=== PATIENT | male | born 1970 | race Caucasian/White ===

== ENCOUNTER 2017-01-23 04:20 | Observation (INO) | payer MEDICARE ==
[2017-01-23] MEDS ORDERED: NS 0.9% 1000 ML* 1,000 ML IV ONE (04:50)
[2017-01-23] MEDS ORDERED: Ondansetron INJ* 2 MG/ML VIAL IV ONE ×3 (04:50→10:19)
[2017-01-23] MEDS ORDERED: Morphine INJ* 4 MG/ML 1 ML SYRINGE IV ONE ×2 (04:50→10:20)
[2017-01-23 05:01] LABS: Hematocrit 52 % (42-52); Hemoglobin 17.5 g/dl (14.0-18.0); Mean Corpuscular HGB Conc 34 g/dl (31-36); Mean Corpuscular Hemoglobin 29 pg (27-31); Mean Corpuscular Volume 86 fL (80-94); Mean Platelet Volume 9 um3 (7.4-10.4); Red Blood Count 6.08 10^6/ul (4.0-5.4); Red Cell Distribution Width 13 % (10.5-15); White Blood Count 22.8 10^3/ul (3.5-10.8)
[2017-01-23 05:12] LABS: Albumin 4.6 g/dL (3.2-5.2); BUN/Creatinine Ratio 18.9 (8-20); Calcium 10.1 mg/dL (8.6-10.3); EGFR African American 91.3 (>60); Globulin 3.4 g/dL (2-4); Total Bilirubin 0.8 mg/dL (0.2-1.0)
[2017-01-23 05:14] LABS: Troponin I 0.01 ng/mL (<0.04)
[2017-01-23] MEDS ORDERED: Piperac/Tazob 3.375 gm in NS* 3.375 GM/100 ML BAG IVPB ONE (05:21)
[2017-01-23] MEDS ORDERED: Insulin REGULAR(*) 1 UNITS UNIT IV PUSH ONE (05:23)
[2017-01-23] MEDS ORDERED: Vancomycin(*) 1,000 MG in NS 0.9% 250 ML* 250 ML IVPB ONE (05:30)
--- NOTE | 2017-01-23 07:01 | ED ---
Remberto Flanagan Aidan, scribed for Jean Holliday on 01/23/17 at 0513 . Complex/Multi-Sys Presentation - HPI Summary HPI Summary: 46 y/o male presents to the ED with a complaint of acute, constant, moderate diffuse abdominal pain and frequent vomiting since 1500 yesterday. He also mentions some CP and diarrhea. Pt denies any blood or fever. Hx of triple bypass , diabetes, HTN, and gall stones. He wears a fentanyl patch on the right side of his chest for chronic back pain. - History Of Current Complaint Chief Complaint: EDChestWallPain Time Seen by Provider: 01/23/17 04:45 Hx Obtained From: Patient, Family/Advertising Sales Agent - Onset/Duration: Sudden Onset, Lasting Hours, Still Present Timing: Constant Severity Currently: Moderate Severity Initially: Moderate Location: Pain At: - abdomen, CP Aggravating Factor(s): unknown Alleviating Factor(s): unknown Associated Signs And Symptoms: Positive: Vomiting, Diarrhea, Abdominal Pain, Other - CP. Negative: Fever - Allergies/Home Medications Allergies/Adverse Reactions: Allergies Allergy/AdvReac Type Severity Reaction Status Date / Time Erythromycin AdvReac Intermediate Nausea And Verified 12/23/16 08:36 Vomiting PMH/Surg Hx/FS Hx/Imm Hx Endocrine/Hematology History: Reports: Hx Diabetes Denies: Hx Thyroid Disease Cardiovascular History: Reports: Hx Angina, Hx Coronary Artery Disease, Hx Hypercholesterolemia, Hx Hypertension, Hx Myocardial Infarction, Other Cardiovascular Problems/Disorders - CARDIAC STENTS Denies: Hx Congestive Heart Failure, Hx Pacemaker/ICD, Hx Valvular Heart Disease Respiratory History: Denies: Hx Asthma, Hx Chronic Obstructive Pulmonary Disease (COPD) GI History: Reports: Other GI Disorders - chronic nausea since Jul Denies: Hx Ulcer History: Denies: Hx Dialysis, Hx Renal Disease Musculoskeletal History: Reports: Hx Arthritis, Hx Back Problems Sensory History: Denies: Hx Hearing Aid Neurological History: Reports: Hx Migraine - here and there (pt stated), Other Neuro Impairments/Disorders - young's palsy, PAIN CLINIC PATIENT Psychiatric History: Reports: Hx Depression, Hx Panic Disorder - does ok with mri foot, Hx Bipolar Disorder - Surgical History Surgery Procedure, Year, and Place: 2008 triple heart bypass; 2007 cardiac cath no stents; 2 stents [place] [facility] [place] Immunization History Date of Tetanus Vaccine: up to date per pt Date of Influenza Vaccine: utd Infectious Disease History: No Infectious Disease History: Reports: History Other Infectious Disease - spinal meningitis Denies: Hx Clostridium Difficile, Hx Hepatitis, Hx Human Immunodeficiency Virus (HIV), Hx of Known/Suspected MRSA, Hx Shingles, Hx Tuberculosis, Hx Known/ Suspected VRE, Hx Known/Suspected VRSA, Traveled Outside the [place] in Last 30 Days - Family History Known Family History: Positive: Cardiac Disease - [place] - mother & father - Social History Occupation: Unemployed Lives: With Family Alcohol Use: None Alcohol Amount: 1-2 beers per week Hx Substance Use: No Substance Use Type: Reports: None Substance Use Comment - Amount & Last Used: weekly Hx Tobacco Use: Yes Smoking Status (MU): Former Smoker Type: Cigarettes, Smokeless Tobacco Amount Used/How Often: one tin in 2 weeks Length of Time of Smoking/Using Tobacco: 4 years Have You Smoked in the Last Year: No Review of Systems Constitutional: Negative Eyes: Negative ENT: Negative Positive: Chest Pain. Negative: Palpitations Respiratory: Negative Positive: Abdominal Pain, Vomiting, Diarrhea. Negative: Nausea Genitourinary: Negative Musculoskeletal: Negative Skin: Negative Neurological: Negative Psychological: Normal All Other Systems Reviewed And Are Negative: Yes Physical Exam Triage Information Reviewed: Yes Vital Signs On Initial Exam: Initial Vitals Temp Pulse Resp BP Pulse Ox 97 F 82 18 145/92 98 01/23/17 04:25 01/23/17 04:25 01/23/17 04:25 01/23/17 04:25 01/23/17 04:25 Vital Signs Reviewed: Yes Appearance: Positive: Well-Appearing, No Pain Distress Skin: Positive: Warm, Skin Color Reflects Adequate Perfusion, Dry Head/Face: Positive: Normal Head/Face Inspection Eyes: Positive: EOMI, JEROME ENT: Positive: Normal ENT inspection, Other - dry mucosa Neck: Positive: Supple, Nontender Respiratory/Lung Sounds: Positive: Clear to Auscultation, Breath Sounds Present Cardiovascular: Positive: Normal, RRR, Pulses are Symmetrical in both Upper and Lower Extremities Abdomen Description: Positive: Nontender, Soft Bowel Sounds: Positive: Present Musculoskeletal: Positive: Normal, Strength/ROM Intact Neurological: Positive: Normal, Sensory/Motor Intact, Alert, Oriented to Person Place, Time Psychiatric: Positive: Affect/Mood Appropriate - Rush Coma Scale Coma Scale Total: 15 Diagnostics - Vital Signs Vital Signs Temp Pulse Resp BP Pulse Ox 05/07/17 05:08 16 01/23/17 04:57 97 F 82 18 145/92 98 01/23/17 04:25 97 F 82 18 145/92 98 - Laboratory Lab Results: Lab Results 01/23/17 Range/Units 04:51 WBC 22.8 H (3.5-10.8) 10^3/ul RBC 6.08 H (4.0-5.4) 10^6/ul Hgb 17.5 (14.0-18.0) g/dl Hct 52 (42-52) % MCV 86 (80-94) fL MCH 29 (27-31) pg MCHC 34 (31-36) g/dl RDW 13 (10.5-15) % Plt Count 272 (150-450) 10^3/ul MPV 9 (7.4-10.4) um3 Neut % (Auto) 77.4 (38-83) % Lymph % (Auto) 15.7 L (25-47) % [place] % (Auto) 6.2 (1-9) % Eos % (Auto) 0.4 (0-6) % Baso % (Auto) 0.3 (0-2) % Absolute Neuts (auto) 17.7 H (1.5-7.7) 10^3/ul Absolute Lymphs (auto) 3.6 (1.0-4.8) 10^3/ul Absolute Monos (auto) 1.4 H (0-0.8) 10^3/ul Absolute Eos (auto) 0.1 (0-0.6) 10^3/ul Absolute Basos (auto) 0.1 (0-0.2) 10^3/ul Absolute Nucleated RBC 0.01 10^3/ul Nucleated RBC % 0.1 Result Diagrams: 01/23/17 04:51 01/23/17 04:51 Lab Statement: Any lab studies that have been ordered have been reviewed, and results considered in the medical decision making process. - EKG EKG 0507 Cardiac Rate: NL - 82 EKG Rhythm: Sinus Rhythm EKG Interpretation: NONSPECIFIC ST AND T CHANGES, Qs AND INFERIOR LEADS. Complex Multi-Symp Course/Dx Course Of Treatment: This is a 46 y/o male presenting with diffuse abdominal pain and frequent vomiting sonce 1500 yesterday. He also mentions some CP and diarrhea. Labs and CT scan are pending. The patient will be diagnosed with abdominal pain and uncontrolled diabetes. He will be signed out to Dr. Rubio. - Diagnoses Provider Diagnoses: Abdominal pain, Uncontrolled diabetes mellitus Discharge - Discharge Plan Condition: Guarded Disposition: OTHER Discharge Disposition Comment: singed out DR Rubio Referrals: Nicky DIXON,Tito Castillo [Primary Care Provider] - The documentation as recorded by the Remberto shore Aidan accurately reflects the service I personally performed and the decisions made by me, Jean Holliday.
[2017-01-23] MEDS ORDERED: Metoclopramide IV* 5 MG/ML 2 ML VIAL IV ONE ×2 (07:11→10:20)
[2017-01-23] MEDS ORDERED: Iodixanol* (CONTRAST) 320 MG/ML 100 ML SDV IV ONE (07:30)
[2017-01-23] MEDS: NS 0.9% 1000 ML* 2,000 ML IV ONE ×3 (07:35→11:42)
[2017-01-23 08:38] LABS: Venous Bicarbonate HCO3 21.3 mmol/L (24-28)
--- NOTE | 2017-01-23 09:38 | RAD ---
CLINICAL HISTORY: Abdominal pain and emesis COMPARISON: Most recent comparison CT examination is dated October 02, 2014 TECHNIQUE: Contrast enhanced CT examination of the abdomen and pelvis from the lung bases through the initial tuberosities. The patient received 114 mL Visipaque 320 intravenously prior to imaging.The patient received oral contrast as well prior to imaging. FINDINGS: VISUALIZED LUNG BASES: The visualized lung bases are grossly clear. There is no pleural effusion. ABDOMEN AND PELVIS: The liver is homogenously hypodense relative to the spleen and top normal and maximum cephalocaudal dimension measuring 20.2 cm. The spleen, pancreas and adrenal glands are grossly normal in appearance. The gallbladder is normal. At the mid-level anterior right kidney there is an 8 mm hypodensity, stable compared to the previous CT examination, that cannot be characterized more specifically on this CT examination. There is a nonobstructing punctate calcification noted in the right kidney (image 32). Otherwise the kidneys are normal in appearance without focal mass, calcification or signs of hydronephrosis. Neural contrast has progressed only as far as the midportion of the small bowel which limits evaluation more distally. The small and large bowel are not distended. The patient's normal appendix is identified in the right lower quadrant with gas in the lumen measuring 7 mm in diameter (image 40). The transverse colon potentially exhibits wall thickening (for example image 25) or this may simply be the consequence of underdistention. Evaluation of the colon is limited without progression of oral contrast to this portion of the bowel. There is no gross retroperitoneal or mesenteric lymphadenopathy. Small fat-containing hernias are incidentally noted. Surgical clips at the bilateral traumatic cords are most consistent with vasectomy. Coarse calcification is incidentally noted in the prostate gland. The abdominal aorta and iliac arteries are normal in course and diameter. Degenerative changes include multilevel loss of intervertebral disc height involving the lower thoracic and lumbar spine.There are no sinister bone lesions. IMPRESSION: 1. Questionable transverse colitis. There is no oral contrast and the colon which limits evaluation in the appearance described above may simply be a consequence of underdistention. 2. Hepatomegaly with likely hepatic steatosis. 3. Additional chronic, degenerative and iatrogenic findings as described in the body of the report.
[2017-01-23] MEDS ORDERED: HYDROcodone/ACET. 7.5/325 LIQ* 15 ML UDC PO PRN (11:05)
[2017-01-23] MEDS ORDERED: QUEtiapine TAB* 25 MG PO PRN (11:05)
[2017-01-23] MEDS ORDERED: Docusate CAP* 100 MG PO PRN (11:05)
[2017-01-23] MEDS ORDERED: PROCHLORPERAZINE INJ 5 MG/ML 2 ML VIAL IV PRN (11:21)
[2017-01-23] MEDS ORDERED: Morphine INJ* 4 MG/ML 1 ML SYRINGE IV PRN (11:21)
[2017-01-23] MEDS: Insulin REGULAR(*) 1 UNITS UNIT SUBCUT SCH ×2 (11:47→16:52)
[2017-01-23] MEDS ORDERED: fentaNYL PATCH 50 MCG/HR TRANSDERM SCH (12:00)
--- NOTE | 2017-01-23 12:05 | RAD ---
INDICATION: Chest pain COMPARISON: Most recent comparison chest x-ray dated August 09, 2016 TECHNIQUE: Single AP portable view of the chest was obtained. FINDINGS: Image quality is compromised due to the relative inferiority of a portable chest x-ray. Stable sternotomy wires are again noted. The heart and mediastinum exhibit normal size and contour. The lungs are grossly clear. There is no evidence of a large pleural effusion. Visualized bones are normal for the patient's age. IMPRESSION: No radiographic evidence for acute cardiopulmonary abnormality on this portable chest x-ray.
--- NOTE | 2017-01-23 12:47 | ED ---
Tino Flanagan Soohyun, scribed for Akira Rubio MD on 01/23/17 at 1022 . Progress - Progress Note Progress Note: Pt has been signed out to Dr. Rubio from Dr. Holliday at shift change. - Results/Orders Results/Orders: CT Ab/P -- 1. Questionable transverse colitis. There is no oral contrast and the colon which limits evaluation in the appearance described above may simply be a consequence of underdistention. 2. Hepatomegaly with likely hepatic steatosis. 3. Additional chronic, degenerative and iatrogenic findings as described in the body of the report. Re-Evaluation - Re-Evaluation First Eval Re-Evaluation Time: 10:15 Comment: Pt is noted with active n/v at time of first re-eval. Course/Dx - Diagnoses Provider Diagnoses: Colitis, DKA (diabetic ketoacidoses) The documentation as recorded by the scribeTino Soohyun accurately reflects the service I personally performed and the decisions made by , Akira Rubio MD.
[2017-01-23] MEDS: Omeprazole CAP* 20 MG PO SCH ×2 (13:19→20:35)
[2017-01-23] MEDS: Metoprolol Succinate XL TAB* 25 MG PO SCH (13:19)
[2017-01-23] MEDS: Insulin GLARGINE(*) 1 UNITS UNIT SUBCUT SCH (13:22)
[2017-01-23] MEDS: NS 0.9% 1000 ML* 1,000 ML IV SCH ×2 (16:34→22:46)
[2017-01-23] MEDS: Ondansetron INJ* 2 MG/ML VIAL IV PRN ×2 (16:47→22:46)
[2017-01-23 17:01] LABS: Urine Bilirubin Negative (Negative); Urine Glucose 3+(>=500 mg/dL) (Negative); Urine Nitrite Negative (Negative)
[2017-01-23] MEDS ORDERED: Metoprolol Succinate XL TAB* 25 MG PO SCH (18:00)
[2017-01-23] MEDS: Metoclopramide TAB* 10 MG PO SCH (18:12)
[2017-01-23] MEDS: fentaNYL Patch Check Q Shift 1 NOTE SCH (18:35)
--- NOTE | 2017-01-23 19:50 | HP ---
HISTORY AND PHYSICAL: DATE OF ADMISSION: 01/23/17 PRIMARY CARE PHYSICIAN: Dr. Tito Saunders. CHIEF COMPLAINT: Nausea, vomiting, abdominal pain. HISTORY OF PRESENT ILLNESS: Vargas is a 46-year-old male with past medical history of hypertension; diabetes; CAD, status post PCI and CABG; chronic pain; hyperlipidemia, who presents to the hospital with nausea, vomiting, abdominal pain. The patient states his symptoms began yesterday. He states he woke up in his usual state of health, had a bowl of cereal for breakfast. Later in the day , he had a Big Mac from [employer] around noon. About 3 hours later, he started to feel nauseous and has since had multiple episodes of vomiting. He states the emesis was initially just the food, now it is bilious. He has developed some abdominal pain associated with this as well; however, he thinks this is from his forceful vomiting and came after his other symptoms began. Since coming to the hospital, he has had 5 bowel movements, he initially described them as diarrhea; however, on inspection, they are soft solid stools, they are brown and they are nonbloody. The patient states his last normal bowel movement was about Tuesday. He has some chronic shortness of breath no worse than usual. He does report some chest pain; however, he also feels that this is likely from his strenuous emesis and is not like his previous cardiac pain in the past. Denies any fever, chills, URI symptoms, sick contacts, lower extremity edema. PAST MEDICAL HISTORY: Hypertension; CAD, status PCI and CABG; diabetes; chronic pain; hyperlipidemia. PAST SURGICAL HISTORY: CABG, 2006. ALLERGIES: The patient reports allergy to ERYTHROMYCIN. FAMILY HISTORY: Significant for mother with CAD, diabetes, hypertension, hyperlipidemia, stroke. Father with CAD, diabetes, hypertension, hyperlipidemia. Paternal grandfather with stomach cancer. SOCIAL HISTORY: The patient is a former smoker. Does not drink alcohol. No illicit drug use. REVIEW OF SYSTEMS: A 12-point review of systems negative except for that on the HPI. PHYSICAL EXAMINATION GENERAL: The patient is a middle-aged man, lying in bed, in mild discomfort. VITAL SIGNS: On admission, temperature 97, heart rate of 82, respiratory rate 18, O2 saturation 98% on room air, blood pressure 145/92. HEENT: Pupils are equal, round, and reactive to light and accommodation. Anicteric sclerae. Moist mucous membranes. Yellow bilious tinge to the tongue. NECK: No cervical adenopathy. LUNGS: Clear to auscultation bilaterally. No wheezes, rales, or rhonchi. CARDIOVASCULAR: Regular rate and rhythm. S1, S2 present. No murmurs, gallops , or rubs. ABDOMEN: Soft, nondistended, tender to palpation in the epigastric periumbilical area. No rebound or guarding. Bowel sounds positive. EXTREMITIES: No cyanosis, clubbing, or edema. NEURO: The patient is alert, oriented x3. No focal neurological deficits. DIAGNOSTIC STUDIES/LAB DATA: White blood cell count of 22, hematocrit 52, platelets of 272. INR of 0.94. Sodium 131, potassium 4.0, chloride of 95, carbon dioxide of 18, anion gap of 18, BUN 21, creatinine 1.11, glucose of 405, lactic acid of 3.0. LFTs within normal limits. Troponin of 0.01. Lipase of 16. Venous blood gas of pH 7.31, PCO2 of 47, PO2 of 33, bicarb of 21.3. EKG: Personally reviewed shows normal sinus rhythm, some mild ST depressions in I and aVL and possibly mild ST elevation in V1. Chest x-ray: Personally reviewed shows no acute disease. CT abdomen and pelvis read as questionable transverse colitis. There is no oral contrast on the colon, which limits evaluation; however, it seems there may be some wall thickening, hepatomegaly with likely hepatic steatosis. ASSESSMENT AND PLAN: Nausea, vomiting, abdominal pain, lactic acidosis, possibly mild diabetic ketoacidosis in a 46-year-old male with a past medical history of hypertension; hyperlipidemia; coronary artery disease, status post coronary artery bypass graft; diabetes; chronic pain. 1. Nausea, vomiting, abdominal pain. It could possibly be a viral gastroenteritis that is slowly working its way through. The patient did receive broad-spectrum antibiotics in the emergency department due to concern for possible infectious colitis. I think this is less likely, not clear based on the imaging if the patient has colitis and this seems that his abdominal pain was preceded by nausea and vomiting. I will hold on any further antibiotics for now. We will aggressively hydrate the patient as he does have mild lactic acidosis, which is likely contributing to his anion gap acidosis. We will continue to treat supportively with antiemetics and analgesics. Clear liquid diet for now. We will repeat the patient's blood work in the morning. If he has any development of diarrhea or bleeding in the stool, can consider further infectious workup as well. 2. Chest pain. The patient reports some chest pain. There are some nonspecific EKG changes, seems less likely this is acute coronary syndrome; however, we will continue to trend the troponins and monitor the patient on telemetry for now. 3. Diabetes. Possibly mild diabetic ketoacidosis. The patient received 8 units of regular insulin in the ED along with 4 L of IV fluids. Recheck of his BG fingerstick was 319, down from 405. I suspect that his anion gap metabolic acidosis is more likely due to his lactate being elevated than diabetic ketoacidosis. Continue aggressive fluid resuscitation for now. We will give the patient his home dose of Lantus and cover with a regular insulin sliding scale until he is taking p.o. regularly. 4. Hypertension, coronary artery disease. Continue aspirin, statin, metoprolol , and ramipril. 5. Chronic pain. Continue with patient's home fentanyl patch and hydrocodone and acetaminophen. 6. DVT prophylaxis. SCDs. 7. Code status. The patient is a full code. TIME SPENT: Total time spent on this admission 45 minutes, more than half the time spent [id number] with the patient in counseling and coordinating care. CC: Dr. Tito Saunders * [id number]/CPS #: [id number] MTDD
[2017-01-23] MEDS ORDERED: Ramipril CAP* 5 MG PO SCH (21:00)
[2017-01-24 05:26] LABS: Hematocrit 40 % (42-52); Hemoglobin 13.8 g/dl (14.0-18.0); Mean Corpuscular HGB Conc 34 g/dl (31-36); Mean Corpuscular Hemoglobin 29 pg (27-31); Mean Corpuscular Volume 85 fL (80-94); Mean Platelet Volume 9 um3 (7.4-10.4); Red Blood Count 4.73 10^6/ul (4.0-5.4); Red Cell Distribution Width 13 % (10.5-15); White Blood Count 11.9 10^3/ul (3.5-10.8)
[2017-01-24] MEDS: NS 0.9% 1000 ML* 1,000 ML IV SCH (05:28)
[2017-01-24 05:45] LABS: BUN/Creatinine Ratio 9.9 (8-20); Calcium 8.5 mg/dL (8.6-10.3); EGFR African American 152.9 (>60); EGFR Non-African American 118.9 (>60); Potassium 3.2 mmol/L (3.5-5.0)
[2017-01-24] MEDS: fentaNYL Patch Check Q Shift 1 NOTE SCH (06:38)
[2017-01-24] MEDS: Insulin REGULAR(*) 1 UNITS UNIT SUBCUT SCH (08:37)
[2017-01-24] MEDS: Metoclopramide TAB* 10 MG PO SCH (08:39)
[2017-01-24] MEDS: Metoprolol Succinate XL TAB* 25 MG PO SCH (08:40)
[2017-01-24] MEDS: Omeprazole CAP* 20 MG PO SCH (08:41)
[2017-01-24] MEDS ORDERED: Atorvastatin* 80 MG TAB PO SCH (09:00)
[2017-01-24] MEDS ORDERED: Aspirin EC Low Dose* 81 MG TAB.EC PO SCH (09:00)
[2017-01-24] MEDS ORDERED: Dextrose 50% Syringe 50 ML* 25 GM/50 ML SYRINGE IV PUSH PRN (09:58)
[2017-01-24] MEDS ORDERED: Potassium Chlor TAB* 20 MEQ TAB.ER PO ONE (11:08)
--- NOTE | 2017-01-24 11:15 | DCNOTE ---
Patient seen this morning. Says he feels much better today. No abdominal pain, nausea or vomiting. Did have some watery stool this morning. Was very hungry and ate half a wrap with no issues. Wanted the whole thing but wanted to pace himself. On exam, RRR, s1 and s2 present, no m/g/r, abd soft, NTND, BS+, lungs CTA B/L, no w/r/r, no LE edema Will monitor through lunch, if no issues can discharge home with outpatient f/ u.
[2017-01-24] MEDS ORDERED: Insulin LISPRO* 1 UNITS UNIT SUBCUT SCH (11:30)
[2017-01-24] MEDS ORDERED: Metoclopramide TAB* 10 MG PO SCH (12:00)
[2017-01-24 12:27] VITALS: BP 137/79
[2017-01-24] MEDS: Insulin GLARGINE(*) 1 UNITS UNIT SUBCUT SCH (12:35)
--- NOTE | 2017-01-24 23:59 | DS ---
DISCHARGE SUMMARY: DATE OF ADMISSION: 01/23/17 DATE OF DISCHARGE: 01/24/17 PRIMARY CARE PHYSICIAN: Dr. Tito Saunders. PRINCIPAL DISCHARGE DIAGNOSES: 1. Nausea, vomiting, viral gastroenteritis. 2. Lactic acidosis. 3. Mild diabetic ketoacidosis. SECONDARY DIAGNOSES: 1. Diabetes mellitus. 2. Hypertension. 3. Coronary artery disease. 4. Chronic pain. 5. Hyperlipidemia. DISCHARGE MEDICATION REGIMEN: 1. Aspirin 81 mg by mouth daily. 2. Atorvastatin 80 mg by mouth daily. 3. Colace 100 mg by mouth daily as needed for constipation. 4. Lorcet 7.5/325 one tablet by mouth every 4 hours as needed for pain. 5. Insulin aspart sliding scale subcutaneous 3 times daily with meals. 6. Reglan 10 mg by mouth 3 times daily with meals. 7. Toprol XL 25 mg by mouth every morning, 50 mg by mouth every night. 8. Nitroglycerin patch 1 patch transdermal daily. 9. Zofran 4 mg by mouth daily. 10. Protonix 40 mg by mouth daily. 11. Seroquel 50 mg by mouth at bedtime as needed for insomnia. 12. Ramipril 5 mg by mouth at bedtime. 13. Ranolazine 1000 mg by mouth 2 times daily. 14. Fentanyl patch 50 mcg transdermal every 72 hours. 15. Lantus 30 units subcutaneous daily. STUDIES DONE DURING HOSPITALIZATION: CT abdomen and pelvis with contrast. Impression: Questionable transverse colitis. There is no oral contrast in the colon, which limits evaluation and the appearance described above may simply be a consequence of underdistention. Hepatomegaly with likely hepatic steatosis. Chest x-ray, impression: No radiographic evidence for acute cardiopulmonary abnormality on this portable chest x-ray. HPI AND HOSPITAL SUMMARY: Please see my full history and physical done on admission. In summary, Mr. Kaye is a 46-year-old male with past medical history as above who presented to the hospital with abdominal pain, nausea and vomiting, which has been going on for about 1 day. He was unable to keep anything down. He came to the hospital for further evaluation. His lab work was notable for a lactic acidosis, hyperglycemia, and anion gap metabolic acidosis and a leukocytosis of 22. CT scan was questionable for possible colitis although this may have been misread and may just been underdistended colon. The patient was started on IV fluids. He initially received antibiotics in the emergency department; however, these were not continued. He was also given subcutaneous insulin. His blood sugars, lactic acidosis, and leukocytosis all resolved. By the following day, he was feeling much improved. He was able to tolerate p.o. intake with no issues and will be sent home and follow up with his PCP as an outpatient. TIME SPENT: Total time spent on this discharge 40 minutes. This is a summary of the hospitalization; please see the full medical record for further details. CC: Dr. Tito Saunders* [id number]/CPS #: [id number] HENRY
== END 2017-01-24 13:37 | disposition home or self-care (01) ==
LOC: ED 04:20 → MEDTELE 10:39 → INTOOBSV 10:39
PROVIDERS: ADMIT Hospitalist; ATTEND Hospitalist
DX: A08.4 Viral intestinal infection, unspecified (principal); E87.2 Acidosis; E13.10 Other specified diabetes mellitus with ketoacidosis without coma; Z79.4 Long term (current) use of insulin; I25.10 Atherosclerotic heart disease of native coronary artery without angina pectoris; I10 Essential (primary) hypertension; E78.5 Hyperlipidemia, unspecified; G89.29 Other chronic pain; Z79.82 Long term (current) use of aspirin; Z79.899 Other long term (current) drug therapy; Z87.891 Personal history of nicotine dependence; I21.3 ST elevation (STEMI) myocardial infarction of unspecified site; Z95.5 Presence of coronary angioplasty implant and graft; R16.0 Hepatomegaly, not elsewhere classified
CPT/HCPCS: 36415; 71010; 74177; 80048; 80053; 81003; 82803; 83605; 83690; 84484; 85025; 85610; 85730; 93005; 96361; 96365; 96367; 96375; 96376; 99285; A9270-GY; G0378; J2270; J2405; J2543; J3370; Q9967

== ENCOUNTER 2017-04-04 22:26 | Emergency (ER) | payer MEDICARE ==
[2017-04-04] MEDS ORDERED: Ondansetron INJ* 2 MG/ML VIAL IV ONE (23:40)
[2017-04-04] MEDS ORDERED: NS 0.9% 1000 ML* 1,000 ML IV ONE (23:40)
[2017-04-04 23:52] LABS: Hematocrit 45 % (42-52); Hemoglobin 15.3 g/dl (14.0-18.0); Mean Corpuscular HGB Conc 34 g/dl (31-36); Mean Corpuscular Hemoglobin 30 pg (27-31); Mean Corpuscular Volume 86 fL (80-94); Mean Platelet Volume 9 um3 (7.4-10.4); Red Blood Count 5.17 10^6/ul (4.0-5.4); Red Cell Distribution Width 13 % (10.5-15); White Blood Count 14.2 10^3/ul (3.5-10.8)
[2017-04-05 00:04] LABS: Albumin 4.4 g/dL (3.2-5.2); BUN/Creatinine Ratio 14.5 (8-20); C Reactive Protein 4.25 mg/L (< 5.00); Calcium 9.6 mg/dL (8.6-10.3); EGFR African American 158.1 (>60); EGFR Non-African American 122.9 (>60); Globulin 2.8 g/dL (2-4); Potassium 3.5 mmol/L (3.5-5.0); Total Bilirubin 0.6 mg/dL (0.2-1.0); Total Protein 7.2 g/dL (6.4-8.9)
[2017-04-05 00:06] LABS: Troponin I 0.01 ng/mL (<0.04)
[2017-04-05] MEDS ORDERED: Acetaminophen TAB* 325 MG PO ONE (00:59)
[2017-04-05] MEDS ORDERED: NS 0.9% 1000 ML* 1,000 ML IV ONE (00:59)
[2017-04-05] MEDS ORDERED: Ondansetron INJ* 2 MG/ML VIAL IV ONE (01:59)
[2017-04-05] MEDS ORDERED: Iodixanol* (CONTRAST) 320 MG/ML 100 ML SDV IV ONE (02:25)
[2017-04-05] MEDS ORDERED: LORazepam INJ* 2 MG/ML 1 ML VIAL IV PUSH ONE (02:56)
--- NOTE | 2017-04-05 05:20 | ED ---
Santiago Flanagan Benjamin, scribed for Betsy Hays MD on 04/05/17 at 0019 . HPI Chest Pain - HPI Summary HPI Summary: 46yo male c/o having CP when he vomits. Pt has been vomiting today a few times and felt CP when vomited. CP started 7:30pm today.Pt has been nauseous and vomited since yesterday. Pt occasionally smokes marijuana and has hx of gastroparesis, DM, and HTN. Surgical Hx of CABG. FHX of CAD. Pt has hx of NH, and cardiac stents. - History of Current Complaint Chief Complaint: EDNauseaVomitDiarrh Time Seen by Provider: 04/04/17 23:00 Hx Obtained From: Patient Onset/Duration: Started Days Ago - 1 angel, Still Present Timing: Constant Initial Severity: Moderate Current Severity: None Pain Intensity: 7 Pain Scale Used: 0-10 Numeric Chest Pain Location: Diffuse Chest Pain Radiates: No Aggravating Factor(s): Movement, Other: - vomiting Alleviating Factor(s): Nothing Associated Signs and Symptoms: Positive: Chest Pain, Nausea, Vomiting - Additional Pertinent History Primary Care Physician: [id number] - Allergy/Home Medications Allergies/Adverse Reactions: Allergies Allergy/AdvReac Type Severity Reaction Status Date / Time Erythromycin AdvReac Intermediate Nausea And Verified 02/25/17 08:58 Vomiting PMH/Surg Hx/FS Hx/Imm Hx Endocrine/Hematology History: Reports: Hx Diabetes Denies: Hx Thyroid Disease Cardiovascular History: Reports: Hx Angina, Hx Coronary Artery Disease, Hx Hypercholesterolemia, Hx Hypertension, Hx Myocardial Infarction, Other Cardiovascular Problems/Disorders - CARDIAC STENTS Denies: Hx Congestive Heart Failure, Hx Pacemaker/ICD, Hx Valvular Heart Disease Respiratory History: Denies: Hx Asthma, Hx Chronic Obstructive Pulmonary Disease (COPD) GI History: Reports: Other GI Disorders - chronic nausea since Jul Denies: Hx Ulcer History: Denies: Hx Dialysis, Hx Renal Disease Musculoskeletal History: Reports: Hx Arthritis, Hx Back Problems Sensory History: Denies: Hx Contacts or Glasses, Hx Hearing Aid Opthamlomology History: Denies: Hx Contacts or Glasses Neurological History: Reports: Hx Migraine - here and there (pt stated), Other Neuro Impairments/Disorders - young's palsy, PAIN CLINIC PATIENT Psychiatric History: Reports: Hx Depression, Hx Panic Disorder - does ok with mri foot, Hx Bipolar Disorder - Surgical History Surgery Procedure, Year, and Place: 2008 triple heart bypass; 2007 cardiac cath no stents; 2 stents placed March 2014 at [facility] [place] - Immunization History Date of Tetanus Vaccine: up to date per pt Date of Influenza Vaccine: utd Infectious Disease History: No Infectious Disease History: Reports: History Other Infectious Disease - spinal meningitis Denies: Hx Clostridium Difficile, Hx Hepatitis, Hx Human Immunodeficiency Virus (HIV), Hx of Known/Suspected MRSA, Hx Shingles, Hx Tuberculosis, Hx Known/ Suspected VRE, Hx Known/Suspected VRSA, Traveled Outside the [place] in Last 30 Days - Family History Known Family History: Positive: Cardiac Disease - [place] - mother & father, Diabetes - Social History Occupation: Employed Full-time Lives: With Family Alcohol Use: None Alcohol Amount: 1-2 beers per week Hx Substance Use: No Substance Use Type: Reports: None Substance Use Comment - Amount & Last Used: weekly Hx Tobacco Use: No Smoking Status (MU): Former Smoker Type: Cigarettes, Smokeless Tobacco Amount Used/How Often: One tin per week Length of Time of Smoking/Using Tobacco: 4 years Have You Smoked in the Last Year: No Review of Systems Constitutional: Negative Eyes: Negative ENT: Negative Positive: Chest Pain - when vomiting Respiratory: Negative Positive: Vomiting, Nausea. Negative: Abdominal Pain Genitourinary: Negative Musculoskeletal: Negative Skin: Negative Neurological: Negative Psychological: Normal All Other Systems Reviewed And Are Negative: Yes Physical Exam Triage Information Reviewed: Yes Vital Signs On Initial Exam: Initial Vitals Temp Pulse Resp BP Pulse Ox 97.5 F 81 20 151/96 100 04/04/17 22:29 04/04/17 22:29 04/04/17 22:29 04/04/17 22:29 04/04/17 22:29 Vital Signs Reviewed: Yes Appearance: Positive: Well-Appearing, No Pain Distress, Well-Nourished Skin: Positive: Warm, Skin Color Reflects Adequate Perfusion, Dry Head/Face: Positive: Normal Head/Face Inspection Eyes: Positive: EOMI, JEROME ENT: Positive: Normal ENT inspection, Hearing grossly normal, Pharynx normal, TMs normal Neck: Positive: Supple, Nontender Respiratory/Lung Sounds: Positive: Clear to Auscultation, Breath Sounds Present. Negative: Rales, Rhonchi Cardiovascular: Positive: RRR. Negative: Murmur Abdomen Description: Positive: Nontender, Soft. Negative: Distended, Guarding Bowel Sounds: Positive: Present Musculoskeletal: Positive: Strength/ROM Intact Neurological: Positive: Sensory/Motor Intact, Alert, Oriented to Person Place, Time, CN Intact II-III Psychiatric: Positive: Affect/Mood Appropriate - Aj Coma Scale Coma Scale Total: 15 Diagnostics - Vital Signs Vital Signs Temp Pulse Resp BP Pulse Ox 04/04/17 22:29 97.5 F 81 20 151/96 100 - Laboratory Lab Results: Lab Results 04/04/17 04/04/17 04/04/17 Range/Units 23:10 23:10 23:10 WBC 14.2 H (3.5-10.8) 10^3/ul RBC 5.17 (4.0-5.4) 10^6/ul Hgb 15.3 (14.0-18.0) g/dl Hct 45 (42-52) % MCV 86 (80-94) fL MCH 30 (27-31) pg MCHC 34 (31-36) g/dl RDW 13 (10.5-15) % Plt Count 209 (150-450) 10^3/ul MPV 9 (7.4-10.4) um3 Neut % (Auto) 78.2 (38-83) % Lymph % (Auto) 15.2 L (25-47) % [place] % (Auto) 5.7 (1-9) % Eos % (Auto) 0.5 (0-6) % Baso % (Auto) 0.4 (0-2) % Absolute Neuts (auto) 11.1 H (1.5-7.7) 10^3/ul Absolute Lymphs (auto) 2.2 (1.0-4.8) 10^3/ul Absolute Monos (auto) 0.8 (0-0.8) 10^3/ul Absolute Eos (auto) 0.1 (0-0.6) 10^3/ul Absolute Basos (auto) 0.1 (0-0.2) 10^3/ul Absolute Nucleated RBC 0.01 10^3/ul Nucleated RBC % 0 Sodium 134 (133-145) mmol/L Potassium 3.5 (3.5-5.0) mmol/L Chloride 99 L (101-111) mmol/L Carbon Dioxide 22 (22-32) mmol/L Anion Gap 13 H (2-11) mmol/L BUN 10 (6-24) mg/dL Creatinine 0.69 (0.67-1.17) mg/dL Est GFR ( Amer) 158.1 (>60) Est GFR (Non-Af Amer) 122.9 (>60) BUN/Creatinine Ratio 14.5 (8-20) Glucose 303 H (70-100) mg/dL Lactic Acid 2.1 H* (0.5-2.0) mmol/L Calcium 9.6 (8.6-10.3) mg/dL Total Bilirubin 0.60 (0.2-1.0) mg/dL AST 12 L (13-39) U/L ALT 18 (7-52) U/L Alkaline Phosphatase 77 (34-104) U/L Troponin I 0.01 (<0.04) ng/mL C-Reactive Protein 4.25 (< 5.00) mg/L Total Protein 7.2 (6.4-8.9) g/dL Albumin 4.4 (3.2-5.2) g/dL Globulin 2.8 (2-4) g/dL Albumin/Globulin Ratio 1.6 (1-3) Lipase 138 H (11.0-82.0) U/L Result Diagrams: 04/04/17 23:10 04/04/17 23:10 Lab Statement: Any lab studies that have been ordered have been reviewed, and results considered in the medical decision making process. - Radiology CXR Xray Interpretation: No Acute Changes Radiology Interpretation Completed By: ED Physician - CT CT A/P W CT Interpretation: Positive (See Comments) - cholelithiasis. gall bladder dysmotility. small hiatal hernia with GERD and acute esophogitis. constipation. calcified coronary artery ateriosclerosis. mild hepatomegaly and steatosis. ( See EMR for more details.) CT Interpretation Completed By: Radiologist - EKG 0821. Cardiac Rate: NL - 71bpm EKG Rhythm: Sinus Rhythm EKG Interpretation: anterior, inferior Qs EKG Comparison: No Significant Change - compared to 01/23/17 Re-Evaluation - Re-Evaluation First Eval Re-Evaluation Time: 01:15 Change: Worse - Feeling nauseous. Will give zofran. Chest Pain Course/Dx - Course Course Of Treatment: 46 yo male with multiple medical problems here with refractory emesis and abd pain sl increase in his lipase, CT done showing biliary disease that pt is fully aware of and his pain was diffuse not localized to his ruq. 6 hour trop was neg. and repeat lactic after fluids normal. Pt's nausea was refractory until I gave him a dose of ativan - Diagnoses Provider Diagnoses: Abdominal pain, Chest pain, Cholelithiasis Discharge - Discharge Plan Condition: Stable Disposition: HOME Patient Education Materials: Chest Pain (ED), Acute Nausea and Vomiting (ED), Abdominal Pain (ED) Referrals: Nicky DIXON,Tito Castillo [Primary Care Provider] - The documentation as recorded by the Santiago shore Benjamin accurately reflects the service I personally performed and the decisions made by me, Betsy Hays MD.
[2017-04-05 05:27] VITALS: BP 137/88
--- NOTE | 2017-04-05 07:28 | RAD ---
INDICATION: Chest pain after vomiting COMPARISON: January 23, 2017 TECHNIQUE: An AP portable view obtained at 2351 hours is submitted. FINDINGS: Bones/Soft Tissues: There are no acute bony findings. There is sternotomy Cardiomediastinal: The cardiomediastinal silhouette is normal. Lungs: There are no infiltrates. There is no pneumothorax Pleura: There are no pleural effusions. Other: None IMPRESSION: NO ACTIVE DISEASE.
--- NOTE | 2017-04-05 10:34 | RAD ---
Indication: Abdominal pain, elevated lipase with vomiting. Contrast: Administered 101.8 ml of VISAPAQUE 320 mgi/ml CT of the chest, abdomen and pelvis was performed after oral and IV contrast administration. The inferior thyroid lobes are unremarkable. Small, 5 mm, right paratracheal lymph nodes are noted. No other adenopathy is noted in the mediastinum or hilum. The heart demonstrates no pericardial effusion. The trachea and major bronchi appear patent. Lung root demonstrate no evidence of pleural fluid, nodules or masses. Heart is of normal size without evidence of pericardial effusion. There appears to be a small axial-type hiatal hernia with mild wall thickening of the distal esophagus which may represent esophagitis. The liver is enlarged measuring 21 cm in length. No focal lesions or intrahepatic duct dilatation is noted. There is diffuse decrease in density of the liver consistent with hepatic steatosis. The spleen is normal in size. No adrenal lesions are noted. The kidneys demonstrate symmetric nephrograms without focal lesions. Pancreas demonstrates no mass or pancreatic duct dilatation. The common duct is not dilated. The gallbladder demonstrates multiple small gallstones in the dependent portion of the gallbladder. No pericholecystic fluid or wall thickening is identified. There may be a small portacaval lymph node measuring up to 10 mm in the short axis. No adrenal lesions are noted. The kidneys demonstrate symmetric nephrograms. No hydronephrosis of either kidney is noted. No retroperitoneal lymphadenopathy is noted. CT of the pelvis demonstrates no retroperitoneal or pelvic lymphadenopathy. Diverticulosis without definite evidence of diverticulitis is noted. The appendix is visualized and is normal. Stool is present throughout the colon. Urinary bladder is otherwise unremarkable. No evidence of small bowel obstruction or dilatation is noted. IMPRESSION: 1. Hepatomegaly with hepatic steatosis. Nonspecific small lymph node in the portacaval space. 2. Cholelithiasis without evidence of biliary duct dilatation. 3. Mild wall thickening of the distal esophagus with hiatal hernia suspicious for esophagitis.
== END 2017-04-05 05:22 | disposition home or self-care (01) ==
LOC: ED 22:26
DX: K80.20 Calculus of gallbladder without cholecystitis without obstruction (principal); R07.89 Other chest pain; R11.2 Nausea with vomiting, unspecified; E11.9 Type 2 diabetes mellitus without complications; I25.119 Atherosclerotic heart disease of native coronary artery with unspecified angina pectoris; I10 Essential (primary) hypertension; Z95.5 Presence of coronary angioplasty implant and graft; I25.2 Old myocardial infarction; E78.00 Pure hypercholesterolemia, unspecified; G43.909 Migraine, unspecified, not intractable, without status migrainosus; F41.0 Panic disorder [episodic paroxysmal anxiety]; F32.9 Major depressive disorder, single episode, unspecified; Z88.1 Allergy status to other antibiotic agents; Z87.891 Personal history of nicotine dependence
CPT/HCPCS: 36415; 71010; 71260; 74177; 80053; 83605; 83690; 84484; 85025; 86140; 93005; 96361; 96374; 96375; 99283; A9270-GY; J2060; J2405; Q9967

== ENCOUNTER 2017-04-21 17:18 | Inpatient (IN) | payer MEDICARE ==
[2017-04-21] MEDS ORDERED: NS 0.9% 1000 ML* 1,000 ML IV ONE ×2 (17:55→22:15)
[2017-04-21 18:08] LABS: Hematocrit 47 % (42-52); Mean Corpuscular HGB Conc 34 g/dl (31-36); Mean Corpuscular Hemoglobin 29 pg (27-31); Mean Corpuscular Volume 87 fL (80-94); Mean Platelet Volume 9 um3 (7.4-10.4); Red Blood Count 5.42 10^6/ul (4.0-5.4); Red Cell Distribution Width 13 % (10.5-15); White Blood Count 16.5 10^3/ul (3.5-10.8)
[2017-04-21 18:27] LABS: ALT 22 U/L (7-52); AST 14 U/L (13-39); Albumin 4.7 g/dL (3.2-5.2); Alkaline Phosphatase 86 U/L (34-104); Anion Gap 19 mmol/L (2-11); BUN/Creatinine Ratio 9.2 (8-20); Blood Urea Nitrogen 9 mg/dL (6-24); C Reactive Protein 7.84 mg/L (< 5.00); CO2 Carbon Dioxide 22 mmol/L (22-32); Calcium 9.9 mg/dL (8.6-10.3); Chloride 95 mmol/L (101-111); EGFR African American 105.4 (>60); Globulin 3.3 g/dL (2-4); Glucose 341 mg/dL (70-100); Lipase < 10 U/L (11.0-82.0); Magnesium 1.9 mg/dL (1.9-2.7); Sodium 136 mmol/L (133-145); Troponin I 0.01 ng/mL (<0.04)
[2017-04-21] MEDS ORDERED: PROCHLORPERAZINE INJ 5 MG/ML 2 ML VIAL IV ONE (18:35)
[2017-04-21] MEDS ORDERED: LORazepam INJ* 2 MG/ML 1 ML VIAL IV ONE (20:05)
[2017-04-21] MEDS ORDERED: Iodixanol* (CONTRAST) 320 MG/ML 100 ML SDV IV ONE (21:21)
--- NOTE | 2017-04-21 21:27 | ED ---
Santiago Flanagan Benjamin, scribed for Beau Ferris MD on 04/21/17 at 1801 . Abdominal Pain/Male - HPI Summary HPI Summary: 46yo male BIBA c/o CP and epigastric abdominal pain that is radiating through his abdominal since yesterday. Pt has also been vomiting multiple times. Pt was recently seen for gall stones. 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 - History of Current Complaint Chief Complaint: EDChestWallPain Stated Complaint: VOMITING Time Seen by Provider: 04/21/17 17:37 Hx Obtained From: Patient, Family/Masonry Contractor - Onset/Duration: Sudden Onset, Lasting Days - 1 day, Still Present Timing: Constant Severity Initially: Severe Severity Currently: Severe Pain Intensity: 9 Pain Scale Used: 0-10 Numeric Location: Diffuse Radiates: No Character: Cramping, Tearing Aggravating Factor(s): Nothing Alleviating Factor(s): Nothing Associated Signs And Symptoms: Positive: Nausea, Vomiting - Allergies/Home Medications Allergies/Adverse Reactions: Allergies Allergy/AdvReac Type Severity Reaction Status Date / Time Erythromycin AdvReac Intermediate Nausea And Verified 02/25/17 08:58 Vomiting PMH/Surg Hx/FS Hx/Imm Hx Endocrine/Hematology History: Reports: Hx Diabetes Denies: Hx Thyroid Disease Cardiovascular History: Reports: Hx Angina, Hx Coronary Artery Disease, Hx Hypercholesterolemia, Hx Hypertension, Hx Myocardial Infarction, Other Cardiovascular Problems/Disorders - CARDIAC STENTS Denies: Hx Congestive Heart Failure, Hx Pacemaker/ICD, Hx Valvular Heart Disease Respiratory History: Denies: Hx Asthma, Hx Chronic Obstructive Pulmonary Disease (COPD) GI History: Reports: Other GI Disorders - chronic nausea since Jul Denies: Hx Ulcer History: Denies: Hx Dialysis, Hx Renal Disease Musculoskeletal History: Reports: Hx Arthritis, Hx Back Problems Sensory History: Denies: Hx Contacts or Glasses, Hx Hearing Aid Opthamlomology History: Denies: Hx Contacts or Glasses Neurological History: Reports: Hx Migraine - here and there (pt stated), Other Neuro Impairments/Disorders - young's palsy, PAIN CLINIC PATIENT Psychiatric History: Reports: Hx Depression, Hx Panic Disorder - does ok with mri foot, Hx Bipolar Disorder - Surgical History Surgery Procedure, Year, and Place: 2008 triple heart bypass; 2007 cardiac cath no stents; 2 [place] [facility] [place] Immunization History Date of Tetanus Vaccine: up to date per pt Date of Influenza Vaccine: utd Infectious Disease History: No Infectious Disease History: Reports: History Other Infectious Disease - spinal meningitis Denies: Hx Clostridium Difficile, Hx Hepatitis, Hx Human Immunodeficiency Virus (HIV), Hx of Known/Suspected MRSA, Hx Shingles, Hx Tuberculosis, Hx Known/ Suspected VRE, Hx Known/Suspected VRSA, Traveled Outside the [place] in Last 30 Days - Family History Known Family History: Positive: Cardiac Disease - [place] - mother & father, Diabetes - Social History Occupation: Unemployed Lives: With Family Alcohol Use: None Alcohol Amount: 1-2 beers per week Hx Substance Use: No Substance Use Type: Reports: None Substance Use Comment - Amount & Last Used: weekly Hx Tobacco Use: No Smoking Status (MU): Former Smoker Type: Cigarettes, Smokeless Tobacco Amount Used/How Often: One tin per week Length of Time of Smoking/Using Tobacco: 4 years Have You Smoked in the Last Year: No Review of Systems Positive: Skin Diaphoresis Eyes: Negative ENT: Negative Cardiovascular: Negative Respiratory: Negative Positive: Abdominal Pain, Vomiting, Nausea Genitourinary: Negative Musculoskeletal: Negative Skin: Negative Neurological: Negative Psychological: Normal All Other Systems Reviewed And Are Negative: Yes Physical Exam Triage Information Reviewed: Yes Vital Signs On Initial Exam: Initial Vitals Temp Pulse Resp BP Pulse Ox 98.1 F 81 20 157/80 99 04/21/17 17:35 04/21/17 17:35 04/21/17 17:35 04/21/17 17:35 04/21/17 17:35 Vital Signs Reviewed: Yes Appearance: Positive: Well-Appearing, No Pain Distress, Well-Nourished Skin: Positive: Warm, Skin Color Reflects Adequate Perfusion, Diaphoretic Head/Face: Positive: Normal Head/Face Inspection Eyes: Positive: Normal ENT: Positive: Normal ENT inspection Neck: Positive: Supple, Nontender Respiratory/Lung Sounds: Positive: Clear to Auscultation, Breath Sounds Present Cardiovascular: Positive: RRR Abdomen Description: Positive: Soft, Other: - diffuse abd tenderness. Negative : Nontender Bowel Sounds: Positive: Present Musculoskeletal: Positive: Strength/ROM Intact Neurological: Positive: Sensory/Motor Intact, Alert, Oriented to Person Place, Time, CN Intact II-III Psychiatric: Positive: Affect/Mood Appropriate Diagnostics - Vital Signs Vital Signs Temp Pulse Resp BP Pulse Ox 04/21/17 17:53 85 140/79 99 04/21/17 17:50 78 99 04/21/17 17:35 98.1 F 81 20 157/80 99 - Laboratory Lab Results: Lab Results 04/21/17 04/21/17 04/21/17 Range/Units 17:55 17:55 17:55 WBC 16.5 H (3.5-10.8) 10^3/ul RBC 5.42 H (4.0-5.4) 10^6/ul Hgb 16.0 (14.0-18.0) g/dl Hct 47 (42-52) % MCV 87 (80-94) fL MCH 29 (27-31) pg MCHC 34 (31-36) g/dl RDW 13 (10.5-15) % Plt Count 238 (150-450) 10^3/ul MPV 9 (7.4-10.4) um3 Neut % (Auto) 88.5 H (38-83) % Lymph % (Auto) 8.4 L (25-47) % [place] % (Auto) 3.0 (1-9) % Eos % (Auto) 0 (0-6) % Baso % (Auto) 0.1 (0-2) % Absolute Neuts (auto) 14.6 H (1.5-7.7) 10^3/ul Absolute Lymphs (auto) 1.4 (1.0-4.8) 10^3/ul Absolute Monos (auto) 0.5 (0-0.8) 10^3/ul Absolute Eos (auto) 0 (0-0.6) 10^3/ul Absolute Basos (auto) 0 (0-0.2) 10^3/ul Absolute Nucleated RBC 0 10^3/ul Nucleated RBC % 0 Sodium 136 (133-145) mmol/L Potassium 4.0 (3.5-5.0) mmol/L Chloride 95 L (101-111) mmol/L Carbon Dioxide 22 (22-32) mmol/L Anion Gap 19 H (2-11) mmol/L BUN 9 (6-24) mg/dL Creatinine 0.98 (0.67-1.17) mg/dL Est GFR ( Amer) 105.4 (>60) Est GFR (Non-Af Amer) 82.0 (>60) BUN/Creatinine Ratio 9.2 (8-20) Glucose 341 H (70-100) mg/dL Lactic Acid 5.3 H* (0.5-2.0) mmol/L Calcium 9.9 (8.6-10.3) mg/dL Magnesium 1.9 (1.9-2.7) mg/dL Total Bilirubin 0.90 (0.2-1.0) mg/dL AST 14 (13-39) U/L ALT 22 (7-52) U/L Alkaline Phosphatase 86 (34-104) U/L Troponin I 0.01 (<0.04) ng/mL C-Reactive Protein 7.84 H (< 5.00) mg/L Total Protein 8.0 (6.4-8.9) g/dL Albumin 4.7 (3.2-5.2) g/dL Globulin 3.3 (2-4) g/dL Albumin/Globulin Ratio 1.4 (1-3) Lipase < 10 L (11.0-82.0) U/L Result Diagrams: 04/21/17 17:55 04/21/17 17:55 Lab Statement: Any lab studies that have been ordered have been reviewed, and results considered in the medical decision making process. - EKG 1751 Cardiac Rate: NL - 81bpm EKG Rhythm: Sinus Rhythm ST Segment: Non-Specific EKG Interpretation: LVH EKG Comparison: No Significant Change - compared to 04/04/17 Abdominal Pain Fem Course/Dx - Course Course Of Treatment: Reviewed pt's medications list and allergies. Pt signed out to Dr. Gomez at 21:00. CT Abd/Pelv W pending. Assessment/Plan: Mr. Kaye presented with severe abdominal pain with diffuse tenderness. He was refractory to treatment here and had a leukocytosis. He is getting a CT scan and disposition will depend on the results. - Diagnoses Provider Diagnoses: Abdominal pain Discharge - Discharge Plan Condition: Stable Disposition: OTHER Discharge Disposition Comment: Change of Shift The documentation as recorded by the Santiago shore Benjamin accurately reflects the service I personally performed and the decisions made by me, Beau Ferris MD.
--- NOTE | 2017-04-21 22:00 | RAD ---
INDICATION: Diffuse abdominal pain COMPARISON: CT of the chest/abdomen/pelvis April 05, 2017 TECHNIQUE: Axial source images were obtained from the hemidiaphragms to the symphysis pubis following administration of oral and intravenous contrast. 114 mL Visipaque 320 was utilized. Coronal and sagittal reconstructed images were acquired. Lung bases: The lung bases are clear. There is median sternotomy Liver: The liver is enlarged with findings of hepatic steatosis. There are no masses. There is no ductal dilatation. Gallbladder: The gallbladder is contracted. There are small gallstones. Spleen: The spleen is normal in size. There are no masses. Pancreas: There is no focal pancreatic mass or ductal dilatation. Adrenal glands: There is no evidence of adrenal mass. Kidneys: The kidneys are normal in size and position. There are prompt nephrograms and there is prompt excretion bilaterally. There are no renal parenchymal masses. There is no evidence of nephrolithiasis. Adenopathy: There is no evidence of adenopathy by size criteria. Fluid collections: There are no free or localized fluid collections. Vessels:There are no significant atherosclerotic changes involving the aorta. There is no focal aneurysm. The iliac vessels are normal in caliber. The IVC appears normal. GI tract: There are no acute CT bowel findings. There is no obstruction. The stomach and small bowel appear unchanged. There is mild thickening of the distal esophagus. The lower GI tract is normal. The cecum, ileocecal valve, and terminal ileum appear normal. The appendix is visualized and appear normal. Pelvic organs: The prostate and seminal vesicles appear normal Bladder: There are no bladder masses. Abdominal and pelvic soft tissues: The extraperitoneal abdominal and pelvic soft tissues appear normal.. Osseous structures: There are no acute osseous findings. Other: None IMPRESSION: 1. No acute CT findings. No mass or inflammatory changes 2. Mild hepatomegaly with hepatic steatosis. 3. Contracted gallbladder. Small gallstones. 4. Mild thickening of the distal esophagus. Consider upper endoscopy as indicated.
[2017-04-21] MEDS ORDERED: CMCS: Melatonin (NF) 3 MG TAB PO PRN (22:14)
[2017-04-21] MEDS ORDERED: Albuterol 2.5 MG/3 ML NEB.SOL* (0.083%) INH PRN (22:14)
[2017-04-21] MEDS ORDERED: Acetaminophen TAB* 325 MG PO PRN (22:14)
[2017-04-21] MEDS ORDERED: Dextrose 50% Syringe 50 ML* 25 GM/50 ML SYRINGE IV PUSH PRN (23:05)
[2017-04-21] MEDS ORDERED: NS 0.9% 1000 ML* 2,000 ML IV ONE (23:05)
[2017-04-21] MEDS ORDERED: QUEtiapine TAB* 25 MG PO PRN (23:09)
[2017-04-22] MEDS: Ondansetron INJ* 2 MG/ML VIAL IV PRN ×3 (00:16→12:30)
[2017-04-22] MEDS: NS 0.9% 1000 ML* 1,000 ML IV SCH ×2 (00:36→13:16)
[2017-04-22 00:42] LABS: Hematocrit 41 % (42-52); Hemoglobin 14.1 g/dl (14.0-18.0)
[2017-04-22] MEDS: Pantoprazole IV* 80 MG in NS 0.9% 250 ML* 250 ML IVPB SCH ×3 (00:53→21:29)
[2017-04-22] MEDS ORDERED: ZOSYN 3.375 GM Q8H per EXTENDED INFUSION IVPB SCH ×2 (01:00)
[2017-04-22] MEDS: fentaNYL PATCH 50 MCG/HR TRANSDERM SCH (01:01)
[2017-04-22 02:13] LABS: Urine Bilirubin Negative (Negative); Urine Glucose 3+(>=500 mg/dL) (Negative); Urine Nitrite Negative (Negative)
[2017-04-22] MEDS: Morphine INJ* 2 MG/ML 1 ML SYRINGE IV PRN ×2 (03:39→23:01)
[2017-04-22] MEDS: ZOSYN 3.375 GM Q8H per EXTENDED INFUSION IVPB SCH ×6 (04:29→21:22)
[2017-04-22] MEDS: Insulin LISPRO* 1 UNITS UNIT SUBCUT SCH ×5 (04:29→21:21)
--- NOTE | 2017-04-22 04:40 | HP ---
CC: Dr. Saunders * HISTORY AND PHYSICAL: DATE OF ADMISSION: 04/21/17 PRIMARY CARE PROVIDER: Dr. Saunders. ATTENDING PHYSICIAN WHILE IN THE HOSPITAL: Dr. Agapito Barnett * (report dictated by Jalen Chang NP). CONSULTING ALL TERRAIN VEHICLE RACER: Dr. Mercer, who is touch base with by the ED. CHIEF COMPLAINT: 1. Vomiting. 2. Nausea. 3. Coffee-ground emesis. HISTORY OF PRESENTING ILLNESS: Mr. Kaye is a 46-year-old male patient, who has a history of hypertension, CAD, diabetes, chronic pain, hyperlipidemia, and history of gallstones. He comes into the ER today, says that last night he vomited and he was vomiting about every 10 minutes, initially it was just green bile and then today actually while in the ER he vomited up some black-looking coffee-ground emesis. He says he has been feeling fatigued, tired, he admits to having epigastric discomfort. He describes it as a sharp, stabbing pain. In addition to this, he also feels like he is having chest pain particularly when he vomits. He says that he has not had any fevers or chills. He denies feeling short of breath. He does state that he feels pretty drowsy and lethargic and tired right now, but he also states that they did give him some Ativan. No recent dysuria or frequency. Denied any loss of consciousness. He states he does not feel lightheaded or dizzy. He said that he does admit to having some abdominal discomfort. He says he cannot keep anything down. He was concerned, came into the ER today, was evaluated by Dr. Ferris. It was noted that he had a white count of 16,000 and his lactate was 5.3. He again vomited up some blood. There was concern because of this and we were asked to evaluate for admission. PAST MEDICAL HISTORY: Significant for: 1. Hypertension. 2. CAD. 3. Diabetes. 4. Chronic pain. 5. Hyperlipidemia. 6. Gallstones. PAST SURGICAL HISTORY: 1. He has had a PCI. 2. He has had CABG. MEDICATIONS: Again this list we will try to get updated one if possible but the last list includes: 1. Lantus 30 units subcu q.a.m. 2. Fentanyl patch 15 mcg transdermally every 72 hours. 3. Ranexa 1000 mg p.o. b.i.d. 4. Altace 5 mg p.o. at bedtime. 5. Seroquel 50 mg p.o. at bedtime as needed. 6. Protonix 40 mg daily. 7. Zofran 4 mg daily. 8. Nitro patch 1 patch transdermally daily. 9. Toprol-XL 25 mg in the morning, 50 mg at bedtime. 10. Reglan 10 mg b.i.d. with meals. 11. NovoLog sliding scale t.i.d. 12. Lorcet 1 tablet every 4 hours as needed. 13. Colace 100 mg p.o. daily as needed. 14. Lipitor 80 mg daily. 15. Aspirin 81 mg daily. ALLERGIES TO MEDICATIONS: Include ERYTHROMYCIN. FAMILY HISTORY: Both his parents had CAD, diabetes, hypertension, and hyperlipidemia. His mother does have a history of cancer. SOCIAL HISTORY: He is a former smoker. He does not drink alcohol. He does smoke marijuana occasionally. Surrogate decision maker is his . REVIEW OF SYSTEMS: There is no documented fever. Denied having any significant weight change. There was no double vision. He denies having any ear discharge. No rhinorrhea, no sore throat. No thyroid enlargement. There was episode of chest pain but is now resolved. He does admit to abdominal discomfort. There is nausea and vomiting. There is no shortness of breath. No orthopnea. No nocturnal dyspnea. There is no lightheadedness. No dysurias , no frequency. No seizure, no loss of consciousness. Review of 14 systems completed, all others were negative. PHYSICAL EXAMINATION GENERAL: At this time, Mr. Kaye is a 46-year-old male patient; coming into the ER today with complaints of not feeling well, appears to be well nourished, well developed. VITAL SIGNS: Blood pressure 162/92 with a pulse of 97, respirations 15, O2 sat 99%, temperature 98.1. HEENT: Head is atraumatic and normocephalic. Eyes: EOMs are intact. Sclerae were anicteric and not pale. NECK: Supple. Throat: Oral mucosa appears to be moist. No oropharyngeal erythema. LUNGS: Clear to auscultation bilaterally. No wheezes, rales, or rhonchi. HEART: Sounds S1, S2. Regular rate and rhythm. No murmurs, rubs, or gallops. ABDOMEN: Soft, flat. Bowel sounds were present. There was tenderness in the epigastric and right upper quadrant. EXTREMITIES: Pulses were 2+ throughout. He is able to move all 4 extremities with 5/5 strength. NEUROLOGICAL: The patient is awake, alert, and he is oriented x3. He is drowsy but he has no gross focal deficits. SKIN: Intact. LABORATORY DATA/DIAGNOSTIC STUDIES: Today revealed WBC of 16.5, RBC of 5.42, hemoglobin of 16.0, hematocrit of 47, and a platelet count of 238. The sodium was 136, potassium of 4, chloride of 95, bicarb of 22, BUN 9, creatinine 0.98, glucose of 141, lactate 5.3, calcium 9.9, total mag was 1.9, total bili 0.9. AST 14, ALT 22, alk phos 86. Troponin 0.01. Albumin of 4.7. There was a CT of the abdomen and pelvis, which revealed no acute CT findings, no masses or inflammatory changes, mild hepatomegaly with hepatic steatosis, contracted gallbladder, small gallstones, mild thickening of the distal esophagus, consider EGD. He had an EKG obtained today, which revealed a normal sinus rhythm with a rate of 81. He did have intraventricular conduction delay with LVH. In my review to the previous EKG, it appears to be similar, he does have ST elevation in V1 and V2 but he has had this previously and it looks to be very stable. He does negative T waves in V5 and 6, which he has had in the past as well and he does have elevation in lead 3 and he has had this in the past as well. Old medical records were reviewed. ASSESSMENT AND PLAN: Mr. Kaye is a 46-year-old male patient with multiple medical problems coming into the ER today with complaints of nausea, vomiting, on evaluation found to have elevated lactic acid and a white count of 16,000 in the setting of abdominal pain. He will be admitted under inpatient status for: 1. SIRS. Again at this point, I do not know about obvious source of infection , but he is pretty tender on exam. He has got a white count of 16,000, lactic acid is 5.3. I think he needs to be pancultured. I will get a urine, urinalysis. In addition to this we will go ahead and start him on antibiotics, given a couple liters of fluid, panculture the patient, and we will go ahead and get an ultrasound of the gallbladder. 2. Questionable upper GI bleed. Again, he did have some coffee-ground emesis here in the ED after vomiting, may have a Fanta-Grimm tear. He has not vomited more but now. We will get serial H and H and put him on IV PPI drip and we will consult GI. They were consulted by the ER and we will avoid anticoagulation. I am going to hold his aspirin for the time being and I will put him on SCDs for DVT prophylaxis. 3. Hypertension. Continue medications as prescribed. 4. CAD. He is on a statin and beta-brenden. Continue holding the aspirin. 5. Diabetes. Lispro sliding scale. 6. Chronic pain. Continue medications as prescribed. 7. Hyperlipidemia. Continue statin therapy. 8. History of gallstones. Again, we will wait for the ultrasound. 9. Lactic acidosis. Etiology is unclear, could just be from the vomiting and dehydration; however, 5.3 is pretty high and with the white count being up, I do raise the concern for possible infection, so I am putting him empirically on Zosyn and reculturing him and I am going to put him in the ICU because of that lactic acid. 10. DVT prophylaxis. Again, SCDs. 11. Code status. Full code. 12. Fluid, electrolytes, and nutrition. Clear liquid diet. TIME SPENT: On the admission was 60 minutes; greater than half the time spent face- to-face with the patient obtaining my history and physical, the other half the time was spent going over the plan of care with the patient and implementing plan of care. I did discuss the plan of care with my attending physician, Dr. Barnett, he is in agreement. JALEN CHANG, DINESH [id number]/[facility] #: [id number] HENRY
[2017-04-22 05:59] LABS: Hematocrit 39 % (42-52); Hemoglobin 13.4 g/dl (14.0-18.0); Mean Corpuscular HGB Conc 34 g/dl (31-36); Mean Corpuscular Hemoglobin 30 pg (27-31); Mean Corpuscular Volume 88 fL (80-94); Mean Platelet Volume 9 um3 (7.4-10.4); Red Blood Count 4.46 10^6/ul (4.0-5.4); Red Cell Distribution Width 13 % (10.5-15); White Blood Count 14.1 10^3/ul (3.5-10.8)
[2017-04-22 06:18] LABS: BUN/Creatinine Ratio 8.6 (8-20); Calcium 8.3 mg/dL (8.6-10.3); EGFR African American 155.5 (>60); EGFR Non-African American 120.9 (>60); Potassium 3.5 mmol/L (3.5-5.0)
[2017-04-22 06:19] LABS: Troponin I 0.99 ng/mL (<0.04)
[2017-04-22] MEDS: fentaNYL Patch Check Q Shift 1 NOTE SCH ×2 (07:13→19:09)
[2017-04-22] MEDS ORDERED: PROCHLORPERAZINE INJ 5 MG/ML 2 ML VIAL ONE (07:57)
[2017-04-22] MEDS ORDERED: Metoclopramide TAB* 10 MG PO SCH (08:00)
[2017-04-22] MEDS ORDERED: PROCHLORPERAZINE INJ 5 MG/ML 2 ML VIAL IV PRN (08:08)
--- NOTE | 2017-04-22 08:12 | RAD ---
INDICATION: Right upper quadrant and epigastric pain. COMPARISON: Comparison is made with a prior right upper quadrant ultrasound from August 09, [address] of the abdomen and pelvis from April 21, 2017. TECHNIQUE: Multiple real-time images of the right upper quadrant were obtained. FINDINGS: The gallbladder is contracted. There are multiple gallstones present. No gallbladder wall thickening is seen. No intra or extrahepatic ductal distention is present. The common bile duct measured 0.4 cm in diameter. The liver is normal in size and increased in echogenicity which correlates with fatty infiltration on the prior CT study. No significant focal normality is seen. The pancreas is partially or by overlying bowel gas. The right kidney is normal in size shape and echogenicity. There is a small focal area of increased echogenicity present in the midportion of the kidney measuring 4 x 3 mm in size most consistent with a small calculus. No hydronephrosis is present. IMPRESSION: 1. CHOLELITHIASIS. 2. FATTY INFILTRATION OF THE LIVER. 3. NONOBSTRUCTING SMALL RIGHT RENAL CALCULUS.
--- NOTE | 2017-04-22 08:37 | PN ---
Subjective Date of Service: 04/22/17 Interval History: Pt is feeling poorly this AM. He states that he is having a tremendous amount of pain in the epigastrum and RUQ. He also feels very nauseated. He last vomited about 2hr ago. He has not had a BM in a few days. Objective Active Medications: Acetaminophen (Tylenol Tab*) 650 mg PO Q6H PRN PRN Reason: FEVER/PAIN Albuterol (Ventolin 2.5 Mg/3 Ml Neb.Frances*) 2.5 mg INH Q2H PRN PRN Reason: SOB/WHEEZING Atorvastatin Calcium (Lipitor*) 80 mg PO DAILY COUNTS INCLUDE 234 BEDS AT THE [facility] Dextrose (D50w Syringe 50 Ml*) 12.5 gm IV PUSH .FOR FS < 60 - SS PRN PRN Reason: FS < 60 Dicyclomine HCl (Bentyl Cap*) 10 mg PO AC COUNTS INCLUDE 234 BEDS AT THE [facility] Stop: 04/22/17 16:31 Fentanyl (Duragesic Patch 50 Mcg/Hr*) 50 mcg TRANSDERM Q72H COUNTS INCLUDE 234 BEDS AT THE [facility] Last Admin: 04/22/17 01:01 Dose: 50 mcg Sodium Chloride (Ns 0.9% 1000 Ml*) 1,000 mls @ 125 mls/hr IV PER RATE COUNTS INCLUDE 234 BEDS AT THE [facility] Last Admin: 04/22/17 00:36 Dose: 125 mls/hr Pantoprazole Sodium 80 mg/ (Sodium Chloride) 250 mls @ 25 mls/hr IVPB Q10H COUNTS INCLUDE 234 BEDS AT THE [facility] Last Admin: 04/22/17 00:53 Dose: 25 mls/hr Piperacillin Sod/Tazobactam (Sod 3.375 gm/ Sodium Chloride) 100 mls @ 25 mls/ hr IVPB 0430,1230,2030 COUNTS INCLUDE 234 BEDS AT THE [facility] Last Admin: 04/22/17 04:29 Dose: 25 mls/hr Insulin Glargine (Lantus(*)) 30 units SUBCUT QAM COUNTS INCLUDE 234 BEDS AT THE [facility] Insulin Human Lispro (Humalog*) 0 units SUBCUT Q4H EVELIN PRN Reason: Protocol Last Admin: 04/22/17 04:29 Dose: 3 units Melatonin (Melatonin (Nf)) 3 mg PO BEDTIME PRN; Protocol PRN Reason: Sleep Metoclopramide HCl (Reglan Tab*) 10 mg PO BID WITH MEALS COUNTS INCLUDE 234 BEDS AT THE [facility] Metoprolol Succinate (Toprol Xl Tab*) 25 mg PO QAM COUNTS INCLUDE 234 BEDS AT THE [facility] Metoprolol Succinate (Toprol Xl Tab*) 50 mg PO QPM COUNTS INCLUDE 234 BEDS AT THE [facility] Morphine Sulfate (Morphine Inj (Syringe)*) 2 mg IV Q2H PRN PRN Reason: PAIN Last Admin: 04/22/17 03:39 Dose: 2 mg Nitroglycerin (Nitroglycerin 10 Mg Patch*) 1 patch TRANSDERM DAILY COUNTS INCLUDE 234 BEDS AT THE [facility] Ondansetron HCl (Zofran Inj*) 4 mg IV Q6H PRN PRN Reason: NAUSEA Last Admin: 04/22/17 04:52 Dose: 4 mg Pantoprazole Sodium (Protonix Iv*) 80 mg IV ED ONCE ONE Stop: 04/22/17 22:16 Pharmacy Profile Note (Fentanyl Patch Check Q Shift) 1 note N/A 0700,1900 EVELIN Last Admin: 04/22/17 07:13 Dose: 1 note Pharmacy Profile Note (Nitro Patch/Oint Remove*) 1 note PATCH OFF 2100 COUNTS INCLUDE 234 BEDS AT THE [facility] Prochlorperazine Edisylate (Compazine Inj*) 5 mg IV Q6H PRN PRN Reason: NAUSEA/VOMITING Quetiapine Fumarate (Seroquel Tab*) 50 mg PO BEDTIME PRN PRN Reason: INSOMNIA Ranolazine (Ranexa (Nf)) 1,000 mg PO BID COUNTS INCLUDE 234 BEDS AT THE [facility] PRN Reason: Protocol Vital Signs 04/21/17 04/21/17 04/21/17 22:30 22:49 23:00 Temperature Pulse Rate 91 92 96 Respiratory 15 25 15 Rate Blood Pressure 162/85 162/92 (mmHg) O2 Sat by Pulse 97 93 99 Oximetry 04/21/17 04/21/17 04/21/17 23:22 23:23 23:30 Temperature 101.1 F Pulse Rate 93 Respiratory 10 16 10 Rate Blood Pressure 126/104 163/85 (mmHg) O2 Sat by Pulse 98 99 99 Oximetry 04/21/17 04/22/17 04/22/17 23:55 00:00 00:04 Temperature 101.1 F Pulse Rate 98 Respiratory 10 19 14 Rate Blood Pressure 126/104 (mmHg) O2 Sat by Pulse 98 97 Oximetry 04/22/17 04/22/17 04/22/17 00:05 00:06 00:30 Temperature Pulse Rate 94 94 Respiratory 14 11 19 Rate Blood Pressure 126/104 147/85 (mmHg) O2 Sat by Pulse 98 98 96 Oximetry 04/22/17 04/22/17 04/22/17 01:00 01:01 01:15 Temperature Pulse Rate 95 92 Respiratory 23 19 25 Rate Blood Pressure 155/87 (mmHg) O2 Sat by Pulse 94 95 Oximetry 04/22/17 04/22/17 04/22/17 01:20 01:30 02:00 Temperature Pulse Rate Respiratory 19 26 13 Rate Blood Pressure 157/85 150/83 (mmHg) O2 Sat by Pulse 97 96 Oximetry 04/22/17 04/22/17 04/22/17 02:30 03:00 03:28 Temperature Pulse Rate Respiratory 22 12 24 Rate Blood Pressure 157/79 102/50 (mmHg) O2 Sat by Pulse 96 99 96 Oximetry 04/22/17 04/22/17 04/22/17 03:30 03:39 03:44 Temperature Pulse Rate Respiratory 14 16 Rate Blood Pressure (mmHg) O2 Sat by Pulse 92 Oximetry 04/22/17 04/22/17 04/22/17 03:58 04:00 04:30 Temperature 100.5 F Pulse Rate Respiratory 18 23 Rate Blood Pressure 144/75 (mmHg) O2 Sat by Pulse 97 96 Oximetry 04/22/17 04/22/17 04/22/17 04:56 05:00 05:30 Temperature Pulse Rate Respiratory 14 13 19 Rate Blood Pressure 159/88 (mmHg) O2 Sat by Pulse 99 97 Oximetry 04/22/17 04/22/17 04/22/17 06:00 06:04 07:44 Temperature 98.7 F Pulse Rate Respiratory 10 14 Rate Blood Pressure 142/72 (mmHg) O2 Sat by Pulse 98 Oximetry Oxygen Devices in Use Now: None Appearance: Middle aged male sitting up in bed, appearing to feel unwell, NAD Eyes: No Scleral Icterus Ears/Nose/Mouth/Throat: Mucous Membranes Moist Respiratory: Symmetrical Chest Expansion and Respiratory Effort, Clear to Auscultation Cardiovascular: NL Sounds; No Murmurs; No JVD, RRR, No Edema Abdominal: - - BS hypoactive, soft, ND, markedly tender to palpation in the RUQ/ LUQ (feels the pain also in the epigastrum), less pain in the B/L lower quadrants. Extremities: No Clubbing, Cyanosis Skin: No Rash or Ulcers, No Nodules or Sclerosis Neurological: Alert and Oriented x 3 Result Diagrams: 04/22/17 05:51 04/22/17 05:51 Additional Lab and Data: Lab Results 04/21/17 04/21/17 04/21/17 Range/Units 17:55 17:55 17:55 WBC 16.5 H (3.5-10.8) 10^3/ul RBC 5.42 H (4.0-5.4) 10^6/ul Hgb 16.0 (14.0-18.0) g/dl Hct 47 (42-52) % MCV 87 (80-94) fL MCH 29 (27-31) pg MCHC 34 (31-36) g/dl RDW 13 (10.5-15) % Plt Count 238 (150-450) 10^3/ul MPV 9 (7.4-10.4) um3 Neut % (Auto) 88.5 H (38-83) % Lymph % (Auto) 8.4 L (25-47) % [place] % (Auto) 3.0 (1-9) % Eos % (Auto) 0 (0-6) % Baso % (Auto) 0.1 (0-2) % Absolute Neuts (auto) 14.6 H (1.5-7.7) 10^3/ul Absolute Lymphs (auto) 1.4 (1.0-4.8) 10^3/ul Absolute Monos (auto) 0.5 (0-0.8) 10^3/ul Absolute Eos (auto) 0 (0-0.6) 10^3/ul Absolute Basos (auto) 0 (0-0.2) 10^3/ul Absolute Nucleated RBC 0 10^3/ul Nucleated RBC % 0 Sodium 136 (133-145) mmol/L Potassium 4.0 (3.5-5.0) mmol/L Chloride 95 L (101-111) mmol/L Carbon Dioxide 22 (22-32) mmol/L Anion Gap 19 H (2-11) mmol/L BUN 9 (6-24) mg/dL Creatinine 0.98 (0.67-1.17) mg/dL Est GFR ( Amer) 105.4 (>60) Est GFR (Non-Af Amer) 82.0 (>60) BUN/Creatinine Ratio 9.2 (8-20) Glucose 341 H (70-100) mg/dL Lactic Acid 5.3 H* (0.5-2.0) mmol/L Calcium 9.9 (8.6-10.3) mg/dL Magnesium 1.9 (1.9-2.7) mg/dL Total Bilirubin 0.90 (0.2-1.0) mg/dL AST 14 (13-39) U/L ALT 22 (7-52) U/L Alkaline Phosphatase 86 (34-104) U/L Troponin I 0.01 (<0.04) ng/mL C-Reactive Protein 7.84 H (< 5.00) mg/L Total Protein 8.0 (6.4-8.9) g/dL Albumin 4.7 (3.2-5.2) g/dL Globulin 3.3 (2-4) g/dL Albumin/Globulin Ratio 1.4 (1-3) Lipase < 10 L (11.0-82.0) U/L Microbiology and Other Data: Microbiology 04/22/17 00:00 Nasal Screen MRSA (PCR)(ALF) - Final Nasal Mrsa Negative Assess/Plan/Problems-Billing Mr Kaye is a 46 yo M who has h/o CAD s/p CABG in 2008, HTN, type II DM and HLD who presented to the ER with c/o nausea, vomiting and coffee ground emesis. - Patient Problems (1) Elevated troponin Current Visit: Yes Status: Acute Code(s): R74.8 - ABNORMAL LEVELS OF OTHER SERUM ENZYMES SNOMED Code(s): 322836048 Comment: ? demand ischemia vs primary cardiac event. Will continue to follow troponin until it peaks. Follow up EKG. Echo results pending. Cardiology consult pending. (2) Abdominal pain Current Visit: Yes Status: Acute Onset Date: 10/08/14 Code(s): R10.9 - UNSPECIFIED ABDOMINAL PAIN SNOMED Code(s): 54064242 Comment: Etiology is not clear. ? referred cardiac pain vs PUD vs other. In addition to severe pain he has severe nausea. Continue multiple antiemetics. Would likely benefit from EGD however with the increasing troponin now is not the time to scope the patient. Will continue the antiemetics, PPI and add carafate if he has esophagitis from vomiting. (3) Nausea & vomiting Current Visit: Yes Status: Acute Onset Date: 10/08/14 Code(s): R11.2 - NAUSEA WITH VOMITING, UNSPECIFIED SNOMED Code(s): 49232898 Comment: The patient has gastroparesis at baseline but his nausea/vomiting is worse than usual. Will continue to alternate antiemetics. Monitor symptoms. (4) CAD (coronary artery disease) Current Visit: Yes Status: Chronic Code(s): I25.10 - ATHSCL HEART DISEASE OF [place] CORONARY ARTERY W/O ANG PCTRS SNOMED Code(s): 12523861 Comment: Pt has severe disease. He is s/p CABG and stenting. Last cath in 2014 shows totally occluded vein graft to the RCA, collaterals are present. Continue ASA (restarted today), lipitor, metoprolol XL, NTG patch and ranexa. Await further recommendations from Dr. Jauregui. (5) Hypertension Current Visit: Yes Status: Chronic Code(s): I10 - ESSENTIAL (PRIMARY) HYPERTENSION SNOMED Code(s): 66311097 Comment: BP is under good control. Continue current medication regimen. (6) Diabetes mellitus type 2, controlled, with complications Current Visit: Yes Status: Chronic Code(s): E11.8 - TYPE 2 DIABETES MELLITUS WITH UNSPECIFIED COMPLICATIONS SNOMED Code(s): 47146528 Comment: Sugars are moderately elevated. Will increase his lantus (7) DVT prophylaxis Current Visit: Yes Status: Acute Code(s): AVK9104 - SNOMED Code(s): 861510166 Comment: SCDs only secondary to concerns of upper GI bleeding. (8) Full code status Current Visit: Yes Status: Acute Code(s): Z78.9 - OTHER SPECIFIED HEALTH STATUS SNOMED Code(s): 681148333
[2017-04-22] MEDS ORDERED: Insulin GLARGINE(*) 1 UNITS UNIT SUBCUT SCH (09:00)
[2017-04-22] MEDS: Nitroglycerin 0.4 MG/HR PATCH* (10 MG) TRANSDERM SCH (09:18)
[2017-04-22] MEDS: Dicyclomine CAP* 10 MG PO SCH ×2 (09:19→11:21)
[2017-04-22] MEDS: CMCS: Ranolazine (NF) 500 MG TAB PO SCH ×2 (09:19→21:25)
[2017-04-22] MEDS: Metoprolol Succinate XL TAB* 25 MG PO SCH (09:20)
[2017-04-22] MEDS: Atorvastatin* 80 MG TAB PO SCH (09:20)
[2017-04-22] MEDS: Metoclopramide IV* 5 MG/ML 2 ML VIAL IV PRN ×2 (09:38→16:31)
[2017-04-22] MEDS ORDERED: Metoclopramide IV* 5 MG/ML 2 ML VIAL ONE (09:39)
[2017-04-22] MEDS: Trimethobenzamide IM* 100 MG/ML 2 ml VIAL IM PRN (13:56)
[2017-04-22] MEDS ORDERED: Aspirin EC Low Dose* 81 MG TAB.EC PO SCH (14:00)
[2017-04-22] MEDS ORDERED: Perflutren Lipid Microsphere* 3 ML VIAL ONE (14:05)
--- NOTE | 2017-04-22 15:04 | ECHO ---
Patient: WGYN MIRELES [facility] Rec#: [id number] : 1970 Date: 04/22/2017 Age: 46y Height: 175.3 cm / 69.0 in Weight: 93 kg / 205.0 lbs Sex: M BSA: 2.1 Room#: ICU 3 Admit Date#: 04/21/2017 Type: Inpatient Referring: Manjula Woods DO Reading: Rob Jauregui MD Needle Board Repairer: [employer] Needle Board Repairer: Rosaline Bartlett RN RDCS CC: Santos Oswald MD CC: Tito Saunders MD Transthoracic Echocardiogram Indication: Elevated troponin level, CAD BP: 99/53 HR: 74 Rhythm: NSR Findings History: CAD, CABG, PCI, HTN, DM, HLD, former smoker, occasional marijuana, gallstones Technical Comments: The study is technically limited due to patient body habitus. The study is technically limited due to the patient's smoking history. Subcostal imaging was not performed as the patient has abdominal pain. Left Ventricle: The left ventricular chamber size is normal. Mild concentric left ventricular hypertrophy is observed. There are multiple regional wall motion abnormalities. There is moderately decreased left ventricular systolic function. The estimated ejection fraction is 35-40%. Post surgical hypokinesis of the interventricular septum is observed consistent with coronary artery bypass. There is no consistent Doppler evidence of clinically significant diastolic dysfunction. The patient was unable to perform a Valsalva maneuver. The basal anteroseptal, mid anteroseptal, mid anterior, mid inferoseptal, apical lateral, and apical inferior wall segments are hypokinetic (score 2). Overall wallmotion score index is 1.38 Left Atrium: The left atrial chamber size is normal. Right Ventricle: The right ventricular chamber size and systolic function are within normal limits. Right Atrium: The right atrial cavity size is normal. Aortic Valve: The aortic valve is trileaflet. The aortic valve leaflets are mildly thickened. There is moderate thickening of the non coronary cusp. Systolic excursion of the aortic valve cusps is reduced. There is aortic annular calcification. There is trace to mild aortic regurgitation. There is mild aortic stenosis. The mean gradient of the aortic valve is 8 mmHg. The peak instantaneous gradient of the aortic valve is 13.4 mmHg. The aortic valve area, by peak velocities, is calculated at 1.7 cm2. The aortic valve area, by VTI's, is calculated at 2 cm2. Mitral Valve: The mitral valve leaflets are mildly thickened. There is a trace of mitral regurgitation. There is no evidence of mitral stenosis. Tricuspid Valve: The tricuspid valve leaflets are normal. There is trace tricuspid regurgitation. Unable to estimate the right ventricular systolic pressure. Pulmonic Valve: The pulmonic valve appears normal. There is a trace pulmonic regurgitation. There is no pulmonic stenosis. Pericardium: There is no significant pericardial effusion. A pericardial fat pad is visualized. Aorta: There is no dilatation of the ascending aorta. The aortic arch is not well visualized. There is no dilation of the aortic root. Pulmonary Artery: The main pulmonary artery appears normal. Venous: The venous system is not well visualized. The inferior vena cava is not visualized. Contrast: Definity was used to optimize study. A total of 3 ml of Definity was given IV to enhance endocardial border definition. Conclusions The left ventricular chamber size is normal. Mild concentric left ventricular hypertrophy is observed. There are multiple regional wall motion abnormalities. There is moderately decreased left ventricular systolic function. The estimated ejection fraction is 35-40%. There is mild aortic stenosis. There is trace to mild aortic regurgitation. New wall motion abnormalities are noted. The EF has decreased from 68% in 02/2009. The is new c/t 02/2009. Measurements Name Value Normal Range RVIDd (AP) 2D 2.6 cm (0.9 - 2.6) RAd ISD 4CH 4.4 cm (3.4 - 4.9) RA (A4C)W 3.7 cm (2.9 - 4.6) IVSd (2D) 1.2 cm (0.6 - 1) LVPWd (2D) 1.1 cm (0.6 - 1) LVIDd (2D) 3.9 cm (3.6 - 5.4) LVIDs (2D) 3.2 cm - LV FS (2D) 18 % (25 - 45) Aortic Annulus 2 cm (1.4 - 2.6) Ao root diameter (2D) 3.1 cm (2.1 - 3.5) Ascending Ao 3.1 cm (2.1 - 3.4) LA dimension (AP) 2D 3.6 cm (2.3 - 3.8) LAd ISD 4CH 4.8 cm (2.9 - 5.3) LA ISD 4CH W 3.9 cm (2.5 - 4.5) Name Value Normal Range LA ESV SP 4CH (A/L) 49 ml - LA ESV SP 2CH (A/L) 36 ml - LA ESV BP (A/L) 44 ml - LA ESV BP (A/L) index 21.1 ml/m2 - LA ESV SP 4CH (MOD) 45 ml - LA ESV SP 2CH (MOD) 35 ml - Name Value Normal Range MV E-wave Vmax 1.1 m/sec - MV deceleration time 134 msec - MV A-wave Vmax 0.76 m/sec - MV E:A ratio 1.5 ratio - LV septal e' Vmax 0.07 m/sec - LV lateral e' Vmax 0.14 m/sec - LV E:e' septal ratio 15.7 ratio - LV E:e' lateral ratio 7.9 ratio - Name Value Normal Range AV Vmax 1.8 m/sec - AV VTI 35.6 cm - AV peak gradient 13.4 mmHg - AV mean gradient 8 mmHg - LVOT diameter 2 cm - LVOT Vmax 1 m/sec - LVOT VTI 22.6 cm - LVOT peak gradient 4 mmHg - LVOT mean gradient 2.6 mmHg - DOI (VTI) 0.63 ratio - DOI (Vmax) 0.56 ratio - DHARA (continuity Vmax) 1.7 cm2 - DHARA (continuity VTI) 2 cm2 - Name Value Normal Range PV Vmax 0.8 m/sec - Wallmotion BAS Hypokinetic BA Normal BAL Normal UBALDO Normal BI Normal BIS Normal MAS Hypokinetic MA Hypokinetic MAL Normal MIL Normal CA Normal MIS Hypokinetic Normal AA Normal AL Hypokinetic AI Hypokinetic APEX Hypokinetic
--- NOTE | 2017-04-22 15:29 | RAD ---
Indication: Chest pain. Single frontal view of the chest performed at 1500 hours was reviewed. Comparison is made with previous exam dated April 04, 2017. No mediastinal shift is noted. Heart is of normal size and configuration. Lung root appear clear. Patient status post transsternal thoracotomy. IMPRESSION: NO ACTIVE CARDIOPULMONARY DISEASE IS NOTED.
[2017-04-22 16:10] LABS: Troponin I 7.2 ng/mL (<0.04)
--- NOTE | 2017-04-22 17:08 | CONSULT ---
Cardiology Note Interventional Cardiology Kindly asked by Dr Jauregui to perform cardiac cath +/- PCI for NSTEMI. Old films reviewed. LM OK LAD Prox 100 Cx diffusely diseased, 2.25x20 NIRAV in mid Cx RCA prox 100 SVG to OM 100 SVG to RCA 100 BARR to distal LAD OK, diagonals fill by collaterals Risk/Benefit/ Options explained to patient and his . All questions answered. Agrees to precede. Chuy Farley MD, MMM, FACC, [facility] [place]
--- NOTE | 2017-04-22 17:08 | CONS ---
CONSULTATION REPORT: DATE OF CONSULT: 04/22/17 INDICATION: Hematemesis. NARRATIVE: Mr. Kaye is a pleasant 46-year-old gentleman with a history of coronary artery, disease status post CABG; diabetes; hypertension; hyperlipidemia; history of gallstones, who was admitted to the hospital last night. He has had 48 hours of vomiting. The patient states that the vomiting continued to get worse. When he came to the emergency room last night, he did vomit twice material that looked like coffee-ground. He does have epigastric pain, it is sharp, it is worsened by vomiting. He does take an aspirin every day, denies any other nonsteroidals. No GI bleeding in the past. Since being admitted to the intensive care unit, he has continued to vomit; however, there has been no hematemesis. PAST MEDICAL HISTORY: Please see the HPI. PAST SURGICAL HISTORY: Includes stent and a CABG. MEDICATIONS: Include: 1. Lantus. 2. Fentanyl. 3. Altace. 4. Seroquel. 5. Protonix. 6. Zofran. 7. Reglan. 8. Lorcet. 9. Lipitor. 10. Aspirin. ALLERGIES: To ERYTHROMYCIN. FAMILY HISTORY: Coronary artery disease, diabetes, hypertension, hyperlipidemia , and nonspecific cancer. SOCIAL HISTORY: He quit smoking. No alcohol. REVIEW OF SYSTEMS: Twelve systems were reviewed, other than that mentioned in the HPI were unremarkable. PHYSICAL EXAM: Temperature is 98.7, blood pressure is 109/56, pulse is 70. General: Slightly ill-appearing male, appears older than the stated age. Alert , oriented, pleasant, and fluent. HEENT: Mucous membranes are moist without lesions, ulcers, or exudate. Neck is supple. Trachea is midline. Head is normocephalic and atraumatic. Heart: Regular rate and rhythm. Lungs: Clear to auscultation. Abdomen is obese, positive bowel sounds. Soft, numerous scars. He is tender in the epigastrium, mainly little bit less pain on the right, even less than the left. No rebound, no guarding, and no masses are felt. DIAGNOSTIC STUDIES/LAB DATA: Of note, his white count fell from 16.5 to 14.1. Hemoglobin went from 16 to 14.1 to 13.4; however, he has received a large amount of IV fluids. BUN was 9, it went up to 10. Creatinine is normal at 0.93. LFTs are unremarkable. His troponin started out at 0.01 and then went to 0.04, then to 0.99 and is now 4.11. Again, LFTs are unremarkable. He has an right upper quadrant ultrasound which shows cholelithiasis. ASSESSMENT AND PLAN: A 46-year-old gentleman with numerous medical issues and hematemesis. The hematemesis has stopped. His BUN is normal. He very well could have had a Fanta-Grimm tear. He could also have peptic ulcer disease. I am concerned about his elevated troponins. Doing an endoscopy right now, I do not believe would be a good idea. If he has a Fanta-Grimm tear, they usually heal on their own. He does not appear to be vomiting anymore coffee- ground material. If he has an ulcer from his aspirin, he is already on Protonix for that. I think his cardiac situation needs to be better clarified before any procedures are discussed. We will continue to follow along. He should remain on his IV Protonix. [id number]/[facility] #: [id number] [facility]
--- NOTE | 2017-04-22 17:10 | PN ---
Progress Note - Progress Note Date of Service: 04/22/17 Note: Surgery Note: (see full consult) 46 yo diabetic male w/ sig hx CAD, known to our office for hx of cholelithiasis w/ biliary colic, admitted 04/21 w/ epigastric abd pain assoc w/ mult episodes of vomiting. He has had a rising troponin as well as some changes on his ECHO. He is being considered for cath. He is currently on Zosyn; is afeb w/ stable VS. We would agree w/ current conservative tx as his cardiac condition is sorted out. We will cont to follow while inpatient.
[2017-04-22] MEDS ORDERED: Midazolam* 1 MG/ML 5 ML VIAL (5 MG) ONE (17:17)
[2017-04-22] MEDS ORDERED: Heparin 2 UNITS/ML IVPREMIX* 3,000 ML IV ONE (17:17)
[2017-04-22] MEDS ORDERED: fentaNYL* 50 MCG/ML 2 ML VIAL (100 MCG VIAL) ONE (17:17)
[2017-04-22] MEDS ORDERED: Lidocaine 1% INJ* 10 MG/ML 30 ML SDV ONE (17:18)
[2017-04-22] MEDS ORDERED: nitroGLYCERIN DRIP* 0 ML ONE (17:18)
[2017-04-22] MEDS ORDERED: Bivalirudin(*) 250 MG VIAL ONE (17:18)
[2017-04-22] MEDS ORDERED: Iohexol 350 (CONTRAST) 200 ML MDV IV ONE (17:18)
[2017-04-22] MEDS: Sucralfate TAB* 1 GM PO SCH ×2 (17:38→21:23)
[2017-04-22] MEDS ORDERED: Metoprolol Succinate XL TAB* 50 MG PO SCH (18:00)
--- NOTE | 2017-04-22 18:29 | PROCNOTE ---
Cardiology Procedure Note Cardiac Cath Procedure note Informed consent obtained, R groin prepped and draped 2 mg Versde sedation 6.5F sheath in R FA, angiosealed at end of case Hemodynamics AsAo 143/73 LV not entered LV-gram not performed Coronaries and grafts: LM normal LAD 100% prox Circ prox 60-70%, mid stent patent. OM1 osteal 40, OM2 diffuse 60% RCA prox 100, fills by collaterals SVG to RCA 100 SVG to diag or OM 100 BARR to LAD widely patent. Supplies collaterals to RCA and multiple diagonals Impressions 3 vessel disease, one patent graft, patent mid circumflex stent Complications none Plan: Medical therapy Chuy Farley MD, MMM, FACC, [facility] [place]
[2017-04-22] MEDS ORDERED: NS 0.9% 1000 ML* 1,000 ML IV SCH (18:30)
[2017-04-22] MEDS: Metoprolol Succinate XL TAB* 50 MG PO SCH (21:22)
[2017-04-22] MEDS: Aspirin EC Low Dose* 81 MG TAB.EC PO SCH (21:22)
[2017-04-22] MEDS: Nitro Patch/OINT Remove PATCH OFF SCH (21:35)
--- NOTE | 2017-04-22 21:47 | CONS ---
CARDIOLOGY CONSULTATION: DATE OF CONSULTATION: 04/22/17 REASON FOR EVALUATION: Chest pain, troponin elevation. HISTORY OF PRESENT ILLNESS: This is a very complex 46-year-old gentleman who has a history of coronary artery disease, diabetes, and cholelithiasis. He had coronary artery bypass grafting at age 38 and multiple catheterizations, admissions for chest pain. His last revascularization was in 2014. At that time, he was seen by Dr. Velasquez and revascularization of his ak chin circumflex, vein graft to the right proximal LAD and the circumflex were occluded. The patient presented 3 years ago with nausea, vomiting, and an elevation in troponin. Since that time, he has continued to have pain, which was felt to be attributed to ischemia in distributions that were not amenable to revascularization as well as possible gallbladder disease. He has been evaluated by Dr. Rob and is being considered for cholecystectomy. He was awaiting cardiac clearance from Dr. Oswald. On Tuesday, he woke up with nausea and vomiting and had some chest discomfort after vomiting. He said his symptoms persisted on and off with anorexia since Tuesday. Because of persistent symptoms, he came to the hospital yesterday. His initial troponin on 04/21/17 was 0.01, it went up to 0.02 on 04/22/17 at midnight and then 0.99 at approximately 6 a.m. this morning, 4.11 at 10 a.m. and the most recent one was at 1537 at 7.2. He said that last time he had more severe pain was this morning; however, he said he has had low-grade pain on and off most of the day. He has not had anything to eat due to anorexia. He says he has had no bowel movements for about a week. He has chronic constipation due to fentanyl patches used for back discomfort. He normally has exertional angina. On a good day, he can walk about a quarter mile slowly before getting chest pain. Sometimes, he will get it sooner. He also gets chest pain at rest and recently had started using nitro patch at night for comfort. He denied syncope, near syncope, or palpitation. No fever, chills, or sweats. No dysuria. He is accompanied by his . PAST MEDICAL HISTORY: Includes coronary artery bypass grafting at age 38. He also had PCI with Dr. Velasquez in 2014. That was his last catheterization. He has a history of hypertension, coronary artery disease, diabetes, chronic back pain due to injury, hyperlipidemia, and cholelithiasis. He denies strokes, mini strokes. PAST SURGICAL HISTORY: Coronary artery bypass grafting in 2008. MEDICATIONS: See the EMR for his medications as an inpatient. He was on Brilinta until a year ago and that was discontinued in order to get the injections for back pain. His current medications include: 1. Acetaminophen. 2. Ventolin. 3. Aspirin. 4. Atorvastatin 80 mg a day. 5. Fentanyl patch 50 mcg transderm q.72. 6. Insulin. 7. Melatonin. 8. Metoclopramide 10 mg IV q.6 p.r.n. 9. Metoprolol 25 mg q.a.m., 50 mg q.p.m. 10. Morphine sulfate 2 mg p.r.n. 11. Protonix 80 mg once. 12. Pantoprazole 80 mg q.10. 13. Piperacillin/tazobactam t.i.d. 14. Seroquel 50 mg at bedtime p.r.n. 15. Ranexa 1000 mg b.i.d. 16. Carafate 1 g 4 times a day. 17. Tigan 200 mg q.6 p.r.n. ALLERGIES: Include ERYTHROMYCIN. SOCIAL HISTORY: He denies alcohol use. He denies cigarette use. He occasionally uses marijuana for back discomfort. FAMILY HISTORY: He has a sister, who is alive and well. He is , accompanied by his . He has 1 adult daughter. His mother at 63 with coronary artery disease. His father at 53 with congestive heart failure. ROS: neg x10 except as above. PHYSICAL EXAMINATION: On physical exam, he is a well-developed, well-nourished gentleman, in no apparent distress. Blood pressure 121/73, heart rate is 74. No significant JVD. Atraumatic, normocephalic. Extraocular muscles intact. Sclerae nonicteric. Cardiac Exam: S1, S2 with a 2/6 systolic ejection murmur at the base. Chest was clear. No CVAT. Abdomen: Mild tenderness in the midepigastric area. Femoral pulses intact without bruits. Distal pulses intact. No edema. Motor strength 5/5 bilaterally. Deep tendon reflexes 2 to 4. Alert and oriented x3. LABORATORY DATA/DIAGNOSTIC STUDIES: His troponins peaked so far at 7.2 and were listed above. Sodium 137, potassium of 3.9, BUN is 6, creatinine of 0.7, calcium 8.3. White count elevated at 14.1, hematocrit of 39, and platelet count 199. Chest x-ray revealed no active disease from earlier today. Echocardiogram from earlier today, left ventricular chamber size is normal, mild LVH, multiple segmental wall motion abnormalities, moderately decreased LV function, EF of 35% to 40%, mild aortic stenosis, trace to mild AI, new wall motion abnormalities were noted, the EF has decreased from 68% in February 2009, the was new compared to February 2009. Of note, he had a nuclear stress test in July 2016. At that time, the EF was reported at 53%, he had anterior and septal fixed defect similar to February 2014, reversible ischemia involving the anterior wall and septum. EKG from 04/21/17 at 1751 revealed sinus rhythm with anteroseptal SC, Q waves inferiorly, possible old inferior SC, and ST depressions in I and aVL, ST elevations in III and F raising the possibility of old inferior infarct with lateral ischemia. The ST depressions laterally were more pronounced compared to March 2016. EKG from this morning 04/22/17 revealed some improvement in the lateral ST depressions. Otherwise, similar. EKG from this afternoon again showed less pronounced lateral ST depressions. IMPRESSION: My impression is that Mr. Kaye has history of significant coronary artery disease and cholelithiasis who presents with nausea, vomiting, and an elevation of troponins and nonspecific lateral ST changes. His troponin has been increasing since he has been here raising the possibility of acute coronary syndrome versus demand ischemia in the setting of biliary colic. So far, his options for interventions are limited due to the history of occluded grafts in small distal vessels; however, it is possible that he has had progression of his coronary artery disease and new lesion. He is also being considered for cholecystectomy and difficult to know whether his symptoms are predominantly related to biliary colic and ischemia or a new acute coronary syndrome process. I have discussed the case with the patient and his and with Dr. Manjula Woods and . At this point, the plan is to proceed with diagnostic cardiac catheterization to analyze his anatomy to see if he is a candidate for revascularization either percutaneously or surgically. If there are no significant changes in the anatomy, the patient understands and agrees to proceed with surgery understanding he is at increased risk for ischemia and infarct at a major operative proceeding given his known diffuse coronary artery disease and residual ischemia. I did advise him to stop smoking and we will continue his other medications as before. He also has a mild degree of , which is probably not significant at this point in time. He also has a history of vomiting up some coffee-ground emesis. He has been seen by GI. It was not felt that an endoscopy was indicated at this point in time. [id number]/[facility] #: [id number] [facility]
[2017-04-22] MEDS ORDERED: Pantoprazole IV* 40 MG IV ONE (22:15)
[2017-04-23] MEDS: Insulin LISPRO* 1 UNITS UNIT SUBCUT SCH ×5 (00:55→21:18)
--- NOTE | 2017-04-23 01:38 | CONS ---
CC: Dr. Saunders, [place]; Dr. Oswald * SURGICAL CONSULT REPORT: DATE OF CONSULT: 04/22/17 ATTENDING SURGEON: Steve Rob MD (DICTATED BY TOM CARRASCO) CHIEF COMPLAINT: Abdominal pain. HISTORY OF PRESENT ILLNESS: This is a 46-year-old male well known to our office from past consults regarding cholelithiasis and biliary colic. He has continued to have episodes every couple of months and has known cholelithiasis for the past 2 to 3 years. He was in fact seen in our office by Dr. Rob recently and plans were in the process for cholecystectomy pending cardiology clearance. He was admitted last evening after 24 to 48 hours of mid epigastric abdominal pain accompanied by violent emesis. He has had very little intake in the last couple of days and at one point, emesis was coffee ground, though before and after, it has been bilious. He has not had any fever or chills. His current episode has been similar to those in the past, though was also accompanied by some chest pain, which has since subsided. He denies any changes in the color of his urine or stool. His last EGD was in September 2014 and was a normal study. PAST MEDICAL HISTORY: Coronary artery disease (status post 3-vessel CABG in 2008 and status post PCI with stent placement in March 2015). History of hypertension. Type 2 diabetes with complication of gastroparesis. He is obese, he is treated for hyperlipidemia and chronic pain related to both degenerative joint and degenerative disk disease. PAST SURGICAL HISTORY: Previous surgeries as noted above, also wisdom teeth extraction. No surgical anesthesia complications. He has undergone multiple cardiac catheterizations. CURRENT MEDICATIONS: Reviewed, includin. Ramipril. 2. Lantus. 3. Reglan. 4. Protonix. 5. Ranexa. 6. Aspirin. 7. NovoLog. 9. Seroquel. 10. Colace. 11. Zofran p.r.n. (uses rarely). 12. Nitroglycerin sublingual p.r.n. 13. Metoprolol. 14. Fentanyl patch 50 mcg every 3 days. 15. Atorvastatin and hydrocodone with APAP (uses rarely). ALLERGIES: ERYTHROMYCIN causes GI side effects. FAMILY HISTORY: Noncontributory. SOCIAL HISTORY: The patient is . He quit smoking approximately 30 years ago. He denies use of alcohol. He does smoke marijuana once daily for assistance with his pain control. He denies other substance use. REVIEW OF SYSTEMS: General: No recent constitutional symptoms other than per the HPI. Cardiovascular: He is followed by Dr. Oswald. See also notes per [facility] and echocardiogram report. Respiratory: No chronic cough or shortness of breath. GI: As above per HPI. He does have constipation secondary to the fentanyl patch. I did not ask him about colonoscopy. : No problems reported. Endocrine: He is treated for type 2 diabetes. No thyroid dysfunction. PHYSICAL EXAMINATION: Vital signs: Height 5 feet 9 inches, weight 205 pounds. T-max in the last 24 hours, 101.1; most recently 98.7. Blood pressures ranged from systolic of 99 to 182/over diastolic of 49 to 104. Pulse is generally in the 70's. Respirations ranging from 15 to 21. General: Well- nourished, somewhat obese male, in no acute distress. He appears comfortable at the present time and is asking if he can eat. Skin: Warm and dry. No suspicious rashes or lesions. HEENT: Pupils equal, round, and reactive. EOM' s are intact. No conjunctival pallor or scleral icterus. Oropharynx: Teeth in good repair. No intraoral lesions. Mucous membranes appear somewhat dry. Neck: No cervical or supraclavicular adenopathy. No thyromegaly or masses. Heart: Regular rate and rhythm. No murmur appreciated. There is a well-healed midline sternotomy incision. Lungs: Clear to auscultation. No wheezes, possibly a few crackles in left base. Abdomen: Bowel sounds are present, but somewhat hypoactive. Abdomen is soft with mild epigastric tenderness. At the present time, there is minimal right upper quadrant or left upper quadrant tenderness. No palpable masses or organomegaly. No peritoneal signs. No palpable inguinal hernias. Genitalia otherwise not examined. Rectal: Not done. Back: No spinous process or CVA tenderness. Extremities: No edema. I did not check peripheral pulses. Neurological: Grossly intact. DIAGNOSTIC STUDIES/LAB DATA: Laboratory of note, white blood cell count on admission 16,500, repeat 14,100. Hemoglobin on admission 16, repeat 13.4. He does have a left shift. His P3 is essentially normal. Glucose is running in 200's. Lactic acid is 1.2, down from 5.3. His troponins have been rising today from 4.1 to 7.2. The liver function tests and lipase have been normal. He did have positive Hemoccult from his emesis. Imaging includes ultrasound and CT, which are confirmatory for cholelithiasis with a contracted gallbladder. The common bile duct was normal. There was no gallbladder wall thickening or pericholecystic fluid. There was some mild distal esophageal thickening by CT. There were fatty liver changes. IMPRESSION: Cholelithiasis with history consistent with biliary colic, compounded by chest pain and rising troponins. He is currently receiving IV Zosyn and does not appear to have sepsis related to biliary disease. He is being considered by Cardiology for catheterization. If that occurs, but he does not require any interventions, then Cardiology will decide when he is able to proceed to cholecystectomy. The patient and his understand that if he requires further intervention, then there will be no immediate plans for surgery. TOM CARRASCO [id number]/[facility] #: [id number] [facility]
[2017-04-23] MEDS: ZOSYN 3.375 GM Q8H per EXTENDED INFUSION IVPB SCH ×8 (04:45→20:08)
[2017-04-23] MEDS: PROCHLORPERAZINE INJ 5 MG/ML 2 ML VIAL IV PRN ×3 (04:45→20:00)
[2017-04-23 05:07] LABS: Hematocrit 36 % (42-52); Hemoglobin 12.5 g/dl (14.0-18.0); Mean Corpuscular HGB Conc 35 g/dl (31-36); Mean Corpuscular Hemoglobin 31 pg (27-31); Mean Corpuscular Volume 88 fL (80-94); Mean Platelet Volume 8 um3 (7.4-10.4); Red Blood Count 4.09 10^6/ul (4.0-5.4); Red Cell Distribution Width 13 % (10.5-15); White Blood Count 10.1 10^3/ul (3.5-10.8)
[2017-04-23 05:23] LABS: Albumin 3.2 g/dL (3.2-5.2); BUN/Creatinine Ratio 6.8 (8-20); EGFR African American 145.8 (>60); EGFR Non-African American 113.4 (>60); Globulin 2.4 g/dL (2-4); HDL Cholesterol 33.8 mg/dL; Potassium 3.5 mmol/L (3.5-5.0); Total Bilirubin 0.8 mg/dL (0.2-1.0); Total Protein 5.6 g/dL (6.4-8.9)
[2017-04-23 05:30] LABS: Troponin I 6.63 ng/mL (<0.04)
[2017-04-23] MEDS: fentaNYL Patch Check Q Shift 1 NOTE SCH ×2 (07:29→19:11)
[2017-04-23] MEDS: Pantoprazole IV* 80 MG in NS 0.9% 250 ML* 250 ML IVPB SCH ×2 (08:36→20:07)
[2017-04-23] MEDS ORDERED: Potassium Chloride LIQUID* 20 MEQ PACKET PO ONE (08:53)
[2017-04-23] MEDS ORDERED: Insulin GLARGINE(*) 1 UNITS UNIT SUBCUT SCH (09:00)
[2017-04-23] MEDS: Sucralfate TAB* 1 GM PO SCH ×4 (09:25→20:45)
[2017-04-23] MEDS: Atorvastatin* 80 MG TAB PO SCH (09:25)
[2017-04-23] MEDS: Nitroglycerin 0.4 MG/HR PATCH* (10 MG) TRANSDERM SCH (09:26)
[2017-04-23] MEDS: CMCS: Ranolazine (NF) 500 MG TAB PO SCH ×2 (09:26→21:23)
[2017-04-23] MEDS: Metoprolol Succinate XL TAB* 25 MG PO SCH (09:26)
[2017-04-23] MEDS: Ondansetron INJ* 2 MG/ML VIAL IV PRN ×2 (09:50→19:54)
[2017-04-23] MEDS: Metoclopramide IV* 5 MG/ML 2 ML VIAL IV PRN ×3 (09:50→22:50)
--- NOTE | 2017-04-23 11:25 | PN ---
Subjective Date of Service: 04/23/17 Interval History: Mr. Kaye reports feeling better today. He has no abdominal pain. He has decreased nausea but was nauseaus after eating breakfast this morning. He has had no vomiting. He denies chest pain or SOB. Objective Active Medications: Acetaminophen (Tylenol Tab*) 650 mg PO Q6H PRN Albuterol (Ventolin 2.5 Mg/3 Ml Neb.Frances*) 2.5 mg INH Q2H PRN Aspirin (Aspirin Ec Low Dose*) 81 mg PO 2100 [facility] Atorvastatin Calcium (Lipitor*) 80 mg PO DAILY [facility] Dextrose (D50w Syringe 50 Ml*) 12.5 gm IV PUSH .FOR FS < 60 - SS PRN Fentanyl (Duragesic Patch 50 Mcg/Hr*) 50 mcg TRANSDERM Q72H [facility] Sodium Chloride (Ns 0.9% 1000 Ml*) 1,000 mls @ 125 mls/hr IV PER RATE [facility] Pantoprazole Sodium 80 mg/ (Sodium Chloride) 250 mls @ 25 mls/hr IVPB Q10H [facility] Piperacillin Sod/Tazobactam (Sod 3.375 gm/ Sodium Chloride) 100 mls @ 25 mls/ hr IVPB 0430,1230,2030 [facility] Insulin Glargine (Lantus(*)) 34 units SUBCUT QAM [facility] Insulin Human Lispro (Humalog*) 0 units SUBCUT ACHS [facility] Melatonin (Melatonin (Nf)) 3 mg PO BEDTIME PRN; Protocol Metoclopramide HCl (Reglan Iv*) 10 mg IV Q6H PRN Metoprolol Succinate (Toprol Xl Tab*) 25 mg PO QAM [facility] Metoprolol Succinate (Toprol Xl Tab*) 50 mg PO 2100 [facility] Morphine Sulfate (Morphine Inj (Syringe)*) 2 mg IV Q2H PRN Nitroglycerin (Nitroglycerin 10 Mg Patch*) 1 patch TRANSDERM DAILY [facility] Ondansetron HCl (Zofran Inj*) 4 mg IV Q6H PRN Pharmacy Profile Note (Fentanyl Patch Check Q Shift) 1 note N/A 0700,1900 [facility] Pharmacy Profile Note (Nitro Patch/Oint Remove*) 1 note PATCH OFF 2100 [facility] Prochlorperazine Edisylate (Compazine Inj*) 10 mg IV Q6H PRN Quetiapine Fumarate (Seroquel Tab*) 50 mg PO BEDTIME PRN Ranolazine (Ranexa (Nf)) 1,000 mg PO BID [facility] Sucralfate (Carafate*) 1 gm PO QID [facility] Trimethobenzamide HCl (Tigan Im*) 200 mg IM Q6H PRN Vital Signs 04/22/17 04/22/17 04/22/17 11:30 12:00 12:30 Temperature Pulse Rate 73 70 70 Respiratory 21 15 9 Rate Blood Pressure 109/56 (mmHg) O2 Sat by Pulse 94 96 95 Oximetry 04/22/17 04/22/17 04/22/17 12:57 13:00 13:09 Temperature Pulse Rate 68 68 Respiratory 12 13 13 Rate Blood Pressure 152/83 149/82 134/83 (mmHg) O2 Sat by Pulse 97 98 Oximetry 04/22/17 04/22/17 04/22/17 13:30 14:00 14:30 Temperature Pulse Rate 98 69 97 Respiratory 18 Rate Blood Pressure 124/70 (mmHg) O2 Sat by Pulse 99 95 99 Oximetry 04/22/17 04/22/17 04/22/17 15:00 15:30 16:00 Temperature Pulse Rate 72 71 72 Respiratory 12 19 13 Rate Blood Pressure 121/73 125/78 (mmHg) O2 Sat by Pulse 98 96 100 Oximetry 04/22/17 04/22/17 04/22/17 16:30 17:00 17:23 Temperature Pulse Rate 67 87 69 Respiratory 15 12 15 Rate Blood Pressure 121/70 (mmHg) O2 Sat by Pulse 99 97 96 Oximetry 04/22/17 04/22/17 04/22/17 17:30 18:09 18:14 Temperature Pulse Rate 72 Respiratory 19 13 16 Rate Blood Pressure (mmHg) O2 Sat by Pulse 99 Oximetry 04/22/17 04/22/17 04/22/17 18:15 18:30 18:45 Temperature Pulse Rate 71 70 Respiratory 14 13 Rate Blood Pressure 132/81 134/73 132/78 (mmHg) O2 Sat by Pulse 99 99 Oximetry 04/22/17 04/22/17 04/22/17 19:00 19:15 19:30 Temperature Pulse Rate 73 66 66 Respiratory 17 10 11 Rate Blood Pressure 130/102 125/73 130/69 (mmHg) O2 Sat by Pulse 99 99 97 Oximetry 04/22/17 04/22/17 04/22/17 19:45 20:00 20:15 Temperature Pulse Rate 65 66 68 Respiratory 10 13 19 Rate Blood Pressure 129/69 130/69 121/62 (mmHg) O2 Sat by Pulse 99 98 96 Oximetry 04/22/17 04/22/17 04/22/17 20:30 20:45 21:00 Temperature Pulse Rate 64 72 73 Respiratory 19 19 17 Rate Blood Pressure 123/66 123/33 113/94 (mmHg) O2 Sat by Pulse 97 96 99 Oximetry 04/22/17 04/22/17 04/22/17 21:15 21:30 22:00 Temperature Pulse Rate 84 68 64 Respiratory 16 14 15 Rate Blood Pressure 128/77 114/66 (mmHg) O2 Sat by Pulse 98 98 99 Oximetry 04/22/17 04/22/17 04/22/17 22:30 23:00 23:01 Temperature Pulse Rate 63 63 Respiratory 12 14 18 Rate Blood Pressure 123/76 (mmHg) O2 Sat by Pulse 98 98 Oximetry 04/22/17 04/22/17 04/23/17 23:30 23:58 00:00 Temperature Pulse Rate 55 58 59 Respiratory 18 19 20 Rate Blood Pressure (mmHg) O2 Sat by Pulse 94 94 94 Oximetry 04/23/17 04/23/17 04/23/17 00:01 00:30 01:00 Temperature Pulse Rate 59 63 59 Respiratory 19 19 21 Rate Blood Pressure 114/61 123/70 (mmHg) O2 Sat by Pulse 94 92 99 Oximetry 04/23/17 04/23/17 04/23/17 01:06 01:30 02:00 Temperature Pulse Rate 55 61 56 Respiratory 18 21 19 Rate Blood Pressure 114/71 (mmHg) O2 Sat by Pulse 94 99 99 Oximetry 04/23/17 04/23/17 04/23/17 02:30 03:00 03:30 Temperature Pulse Rate 59 52 53 Respiratory 14 17 19 Rate Blood Pressure 97/57 (mmHg) O2 Sat by Pulse 96 99 99 Oximetry 04/23/17 04/23/17 04/23/17 04:00 04:30 05:00 Temperature Pulse Rate 54 52 55 Respiratory 11 10 14 Rate Blood Pressure 111/63 111/68 (mmHg) O2 Sat by Pulse 99 97 98 Oximetry 04/23/17 04/23/17 04/23/17 05:30 06:00 06:30 Temperature Pulse Rate 54 52 54 Respiratory 18 17 14 Rate Blood Pressure 108/63 (mmHg) O2 Sat by Pulse 99 99 100 Oximetry 04/23/17 04/23/17 04/23/17 07:00 07:30 07:56 Temperature Pulse Rate 54 53 56 Respiratory 18 17 17 Rate Blood Pressure 122/66 (mmHg) O2 Sat by Pulse 100 100 99 Oximetry 04/23/17 04/23/17 04/23/17 08:00 08:30 09:00 Temperature Pulse Rate 52 57 57 Respiratory 17 18 12 Rate Blood Pressure 121/65 121/59 (mmHg) O2 Sat by Pulse 99 99 98 Oximetry 04/23/17 04/23/17 04/23/17 09:20 09:30 10:00 Temperature 97.4 F Pulse Rate 59 55 Respiratory 15 11 Rate Blood Pressure (mmHg) O2 Sat by Pulse 96 97 Oximetry 04/23/17 10:01 Temperature Pulse Rate 54 Respiratory 12 Rate Blood Pressure 116/61 (mmHg) O2 Sat by Pulse 98 Oximetry Oxygen Devices in Use Now: Nasal Cannula Appearance: Male lying in bed in NAD Eyes: No Scleral Icterus Neck: Trachea Midline Respiratory: Symmetrical Chest Expansion and Respiratory Effort, Clear to Auscultation Cardiovascular: NL Sounds; No Murmurs; No JVD, No Edema Abdominal: NL Sounds; No Tenderness; No Distention Lymphatic: No Cervical Adenopathy Extremities: No Edema Skin: No Rash or Ulcers Neurological: Alert and Oriented x 3, NL Muscle Strength and Tone Nutrition: Taking PO's Result Diagrams: 04/23/17 05:00 04/23/17 05:00 Additional Lab and Data: Lab Results 04/21/17 04/21/17 04/21/17 Range/Units 17:55 17:55 17:55 WBC 16.5 H (3.5-10.8) 10^3/ul RBC 5.42 H (4.0-5.4) 10^6/ul Hgb 16.0 (14.0-18.0) g/dl Hct 47 (42-52) % MCV 87 (80-94) fL MCH 29 (27-31) pg MCHC 34 (31-36) g/dl RDW 13 (10.5-15) % Plt Count 238 (150-450) 10^3/ul MPV 9 (7.4-10.4) um3 Neut % (Auto) 88.5 H (38-83) % Lymph % (Auto) 8.4 L (25-47) % [place] % (Auto) 3.0 (1-9) % Eos % (Auto) 0 (0-6) % Baso % (Auto) 0.1 (0-2) % Absolute Neuts (auto) 14.6 H (1.5-7.7) 10^3/ul Absolute Lymphs (auto) 1.4 (1.0-4.8) 10^3/ul Absolute Monos (auto) 0.5 (0-0.8) 10^3/ul Absolute Eos (auto) 0 (0-0.6) 10^3/ul Absolute Basos (auto) 0 (0-0.2) 10^3/ul Absolute Nucleated RBC 0 10^3/ul Nucleated RBC % 0 Sodium 136 (133-145) mmol/L Potassium 4.0 (3.5-5.0) mmol/L Chloride 95 L (101-111) mmol/L Carbon Dioxide 22 (22-32) mmol/L Anion Gap 19 H (2-11) mmol/L BUN 9 (6-24) mg/dL Creatinine 0.98 (0.67-1.17) mg/dL Est GFR ( Amer) 105.4 (>60) Est GFR (Non-Af Amer) 82.0 (>60) BUN/Creatinine Ratio 9.2 (8-20) Glucose 341 H (70-100) mg/dL Lactic Acid 5.3 H* (0.5-2.0) mmol/L Calcium 9.9 (8.6-10.3) mg/dL Magnesium 1.9 (1.9-2.7) mg/dL Total Bilirubin 0.90 (0.2-1.0) mg/dL AST 14 (13-39) U/L ALT 22 (7-52) U/L Alkaline Phosphatase 86 (34-104) U/L Troponin I 0.01 (<0.04) ng/mL C-Reactive Protein 7.84 H (< 5.00) mg/L Total Protein 8.0 (6.4-8.9) g/dL Albumin 4.7 (3.2-5.2) g/dL Globulin 3.3 (2-4) g/dL Albumin/Globulin Ratio 1.4 (1-3) Lipase < 10 L (11.0-82.0) U/L Microbiology and Other Data: Microbiology 04/22/17 00:00 Nasal Screen MRSA (PCR)(AFL) - Final Nasal Mrsa Negative Assess/Plan/Problems-Billing Mr Kaye is a 46 yo M who has h/o CAD s/p CABG in 2008, HTN, type II DM and HLD who presented to the ER with c/o nausea, vomiting and coffee ground emesis. - Patient Problems (1) Abdominal pain Comment: - With nausea and vomiting. - Etiology is not clear. ? referred cardiac pain vs PUD vs Fanta Grimm tear vs cholecysitis. CT abd/pelvis on arrival only showed mild thickening of distal esophagus. GB US only showed cholelithiasis. - Appreciate GI consult, patient had EGD in 2014 with similiar symptoms with no abnormal findings. Will continue the antiemetics, PPI and carafate. - Appreciate Surgical consult. Patient has long standing history of cholelithiasis with suspected biliary colic. Patient did have leukocytosis with fever on arrival with concern for cholecystitis but as mentioned imaging was negative. Leukocytosis and fever have now resolved. Plan to continue zosyn. Patient had seen Dr. Rob outpatient but plans for cholecystectomy have been on hold pending cardiology clearance. However cardiac cath has been done and is unchanged. Dr. Jauregui has reviewed inherent risks of surgery with patient and family, no further cardiac testing or intervention is recommended prior to surgery. Liane intends to defer surgery for one week given signficant demand ischemia. (2) Nausea & vomiting Comment: - The patient has gastroparesis at baseline but his nausea/vomiting is worse than usual. - Will continue to alternate antiemetics. Monitor symptoms. (3) Elevated troponin Comment: - Trops peaked at 7.27. - Appreciate cardiology consult. Suspect demand ischemia in the setting of biliary colic as cardiac cath showed only pre-existing disease three vessel disease (BARR to LAD widely patient and patent mid-circumflex stent). Recommends to continue medical management, see below. - Echo did show newly depressed EF from normal to 35-40%. (4) CAD (coronary artery disease) Comment: - S/P s/p CABG and stenting. - Continue aspirin, atorvastatin, metoprolol XL, NTG patch and ranexa. (5) Diabetes mellitus type 2, controlled, with complications Comment: - BGs well controlled. - Patient reports frequently not taking his lantus and has refused this AM. Plan to monitor BGs and adjust dose as needed in AM. (6) Hypertension Comment: - BP is under good control. - Continue metoprolol. (7) DVT prophylaxis Comment: - SCDs only secondary to concerns of upper GI bleeding. (8) Full code status Status and Disposition: Inpatient with critical illness and expected LOS > 2 days. Anticipate discharge to home when medically stable.
--- NOTE | 2017-04-23 11:57 | PN ---
Progress Note - Progress Note Date of Service: 04/23/17 SOAP: Subjective: Pt seen and examined. Chart and radiology reviewed. Pt known to me after recent office visit with symptomatic cholelithiasis. I recommended surgery after cardio evaluation. Pt now with N/V, abdo pain and elevated troponins. s/ p cardiac cath with no unexpected findings. Cardiology considers him optomized. Pt has appetite Objective: afebrile abdo: soft/ ND/ minimal tenderness, neg. Connell's sign labs noted Assessment: Biliary colic , ACS Plan: resume diet, lowfat Will follow closely continue antibiotics for now. Possible cholecystectomy next week vs this week. I discussed the possibilty of RI postoperatively and the possible need for transfer. We discussed possibly sending pt to a [facility] for surgical intervention. I also discussed the possibility of continued epigasstric pain and N/V despite cholecystectomy.
[2017-04-23] MEDS ORDERED: Zosyn per Pharmacy* NOTE FOLLOW UP SCH (12:00)
[2017-04-23] MEDS: Trimethobenzamide IM* 100 MG/ML 2 ml VIAL IM PRN ×2 (14:52→23:00)
[2017-04-23] MEDS: Morphine INJ* 2 MG/ML 1 ML SYRINGE IV PRN ×4 (15:59→22:50)
[2017-04-23] MEDS ORDERED: Al Hydrox/Mg Hydrox/Simet LIQ* 30 ML UDC PO PRN (16:42)
[2017-04-23] MEDS ORDERED: Polyethylene Glycol 3350* 17 GM PACKET PO PRN (18:38)
[2017-04-23] MEDS: Senna TAB PO SCH (20:45)
[2017-04-23] MEDS: Aspirin EC Low Dose* 81 MG TAB.EC PO SCH (21:21)
[2017-04-23] MEDS: Metoprolol Succinate XL TAB* 50 MG PO SCH (21:22)
[2017-04-23] MEDS: Nitro Patch/OINT Remove PATCH OFF SCH (21:23)
[2017-04-24] MEDS ORDERED: Bisacodyl SUPP* 10 MG SUPP PR ONE (00:30)
[2017-04-24] MEDS: ZOSYN 3.375 GM Q8H per EXTENDED INFUSION IVPB SCH ×6 (05:22→20:39)
[2017-04-24 06:15] LABS: Hematocrit 39 % (42-52); Hemoglobin 13.5 g/dl (14.0-18.0); Mean Corpuscular HGB Conc 35 g/dl (31-36); Mean Corpuscular Hemoglobin 30 pg (27-31); Mean Corpuscular Volume 85 fL (80-94); Mean Platelet Volume 8 um3 (7.4-10.4); Red Blood Count 4.54 10^6/ul (4.0-5.4); Red Cell Distribution Width 13 % (10.5-15); White Blood Count 11.3 10^3/ul (3.5-10.8)
[2017-04-24 06:28] LABS: BUN/Creatinine Ratio 6.8 (8-20); Calcium 8.7 mg/dL (8.6-10.3); EGFR African American 148.1 (>60); EGFR Non-African American 115.2 (>60); Potassium 3.1 mmol/L (3.5-5.0)
[2017-04-24 06:32] LABS: Troponin I 3.94 ng/mL (<0.04)
[2017-04-24] MEDS: Pantoprazole IV* 80 MG in NS 0.9% 250 ML* 250 ML IVPB SCH ×2 (06:51→18:34)
[2017-04-24] MEDS: fentaNYL Patch Check Q Shift 1 NOTE SCH ×2 (07:13→19:08)
[2017-04-24] MEDS: Insulin LISPRO* 1 UNITS UNIT SUBCUT SCH ×4 (08:11→21:05)
[2017-04-24] MEDS: KCL 10 MEQ/50 ML IVPREMIX* 10 MEQ/50 ML BAG IV SCH (08:18)
[2017-04-24] MEDS: Metoclopramide IV* 5 MG/ML 2 ML VIAL IV PRN (08:49)
[2017-04-24] MEDS: Metoprolol Succinate XL TAB* 25 MG PO SCH (09:18)
[2017-04-24] MEDS: CMCS: Ranolazine (NF) 500 MG TAB PO SCH ×2 (09:18→20:48)
[2017-04-24] MEDS: Sucralfate TAB* 1 GM PO SCH ×4 (09:18→20:48)
[2017-04-24] MEDS: Atorvastatin* 80 MG TAB PO SCH (09:19)
[2017-04-24] MEDS: Nitroglycerin 0.4 MG/HR PATCH* (10 MG) TRANSDERM SCH (09:19)
[2017-04-24] MEDS: Potassium Chlor TAB* 20 MEQ TAB.ER PO SCH ×2 (10:51→20:47)
--- NOTE | 2017-04-24 11:09 | PN ---
Progress Note - Progress Note Date of Service: 04/24/17 SOAP: Subjective: Pt feeing better today. No nausea. tolerating some PO Objective: afebrile abdo: soft/ND/NT Assessment: cholecystitis Plan: abx d/c planining cholecystectomy as outpt.
[2017-04-24] MEDS: Docusate CAP* 100 MG PO SCH (11:10)
--- NOTE | 2017-04-24 14:38 | PN ---
Subjective Date of Service: 04/24/17 Interval History: HOSPITALIST PROGRESS NOTE Patient seen and examined at bedside. He feels better this AM, abdominal pain is much improved and he had no nausea so far, but wants to stick to liquid diet for now. Family History: Unchanged from Admission Social History: Unchanged from Admission Past Medical History: Unchanged from Admission Objective Active Medications: Acetaminophen (Tylenol Tab*) 650 mg PO Q6H PRN PRN Reason: FEVER/PAIN Last Admin: 04/22/17 19:31 Dose: 650 mg Al Hydrox/Mg Hydrox/Simethicone (Maalox Plus*) 30 ml PO Q6H PRN PRN Reason: nausea/heartburn Last Admin: 04/23/17 17:30 Dose: 30 ml Albuterol (Ventolin 2.5 Mg/3 Ml Neb.Frances*) 2.5 mg INH Q2H PRN PRN Reason: SOB/WHEEZING Aspirin (Aspirin Ec Low Dose*) 81 mg PO 2100 [facility] Last Admin: 04/23/17 21:21 Dose: Not Given Atorvastatin Calcium (Lipitor*) 80 mg PO DAILY [facility] Last Admin: 04/24/17 09:19 Dose: 80 mg Dextrose (D50w Syringe 50 Ml*) 12.5 gm IV PUSH .FOR FS < 60 - SS PRN PRN Reason: FS < 60 Docusate Sodium (Colace Cap*) 100 mg PO DAILY [facility] Last Admin: 04/24/17 11:10 Dose: 100 mg Fentanyl (Duragesic Patch 50 Mcg/Hr*) 50 mcg TRANSDERM Q72H [facility] Last Admin: 04/22/17 01:01 Dose: 50 mcg Pantoprazole Sodium 80 mg/ (Sodium Chloride) 250 mls @ 25 mls/hr IVPB Q10H [facility] Last Admin: 04/24/17 06:51 Dose: 25 mls/hr Piperacillin Sod/Tazobactam (Sod 3.375 gm/ Sodium Chloride) 100 mls @ 25 mls/ hr IVPB 0430,1230,2030 [facility] Last Admin: 04/24/17 13:39 Dose: 25 mls/hr Insulin Human Lispro (Humalog*) 0 units SUBCUT ACHS [facility] PRN Reason: Protocol Last Admin: 04/24/17 13:38 Dose: 3 units Melatonin (Melatonin (Nf)) 3 mg PO BEDTIME PRN; Protocol PRN Reason: Sleep Last Admin: 04/22/17 21:26 Dose: 3 mg Metoclopramide HCl (Reglan Iv*) 10 mg IV Q6H PRN PRN Reason: NAUSEA/VOMITING Last Admin: 04/24/17 08:49 Dose: 10 mg Metoprolol Succinate (Toprol Xl Tab*) 25 mg PO QAM [facility] Last Admin: 04/24/17 09:18 Dose: 25 mg Metoprolol Succinate (Toprol Xl Tab*) 50 mg PO 2100 [facility] Last Admin: 04/23/17 21:22 Dose: Not Given Morphine Sulfate (Morphine Inj (Syringe)*) 2 mg IV Q2H PRN PRN Reason: PAIN Last Admin: 04/23/17 22:50 Dose: 2 mg Nitroglycerin (Nitroglycerin 10 Mg Patch*) 1 patch TRANSDERM DAILY [facility] Last Admin: 04/24/17 09:19 Dose: 1 patch Ondansetron HCl (Zofran Inj*) 4 mg IV Q6H PRN PRN Reason: NAUSEA Last Admin: 04/23/17 19:54 Dose: 4 mg Pharmacy Consult (Zosyn Per Pharmacy*) 1 note FOLLOW UP .ZOSYN PER PHARMACY [facility] Pharmacy Profile Note (Fentanyl Patch Check Q Shift) 1 note N/A 0700,1900 [facility] Last Admin: 04/24/17 07:13 Dose: 1 note Pharmacy Profile Note (Nitro Patch/Oint Remove*) 1 note PATCH OFF 2100 [facility] Last Admin: 04/23/17 21:23 Dose: Not Given Polyethylene Glycol/Electrolytes (Miralax*) 17 gm PO DAILY PRN PRN Reason: CONSTIPATION Last Admin: 04/23/17 20:41 Dose: 17 gm Potassium Chloride (Klor Con Er Tab*) 40 meq PO BID [facility] Last Admin: 04/24/17 10:51 Dose: 40 meq Prochlorperazine Edisylate (Compazine Inj*) 10 mg IV Q6H PRN PRN Reason: NAUSEA/VOMITING Last Admin: 04/23/17 20:00 Dose: 10 mg Quetiapine Fumarate (Seroquel Tab*) 50 mg PO BEDTIME PRN PRN Reason: INSOMNIA Ranolazine (Ranexa (Nf)) 1,000 mg PO BID [facility] PRN Reason: Protocol Last Admin: 04/24/17 09:18 Dose: 1,000 mg Senna (Senokot Tab*) 1 tab PO BEDTIME [facility] Last Admin: 04/23/17 20:45 Dose: 1 tab Sucralfate (Carafate*) 1 gm PO QID [facility] Last Admin: 04/24/17 14:08 Dose: 1 gm Trimethobenzamide HCl (Tigan Im*) 200 mg IM Q6H PRN PRN Reason: NAUSEA Last Admin: 04/23/17 23:00 Dose: 200 mg Vital Signs 04/24/17 04/24/17 04/24/17 11:18 11:52 12:00 Temperature 97.6 F Pulse Rate 81 60 Respiratory 13 20 Rate Blood Pressure 103/68 (mmHg) O2 Sat by Pulse 95 99 Oximetry 04/24/17 04/24/17 13:54 14:00 Temperature Pulse Rate 68 64 Respiratory 17 11 Rate Blood Pressure 121/70 106/68 (mmHg) O2 Sat by Pulse 96 97 Oximetry Oxygen Devices in Use Now: Nasal Cannula Appearance: Pleasant gentleman sitting up in bed in [facility]. Eyes: No Scleral Icterus Ears/Nose/Mouth/Throat: Mucous Membranes Moist Neck: Trachea Midline Respiratory: Symmetrical Chest Expansion and Respiratory Effort, Clear to Auscultation Cardiovascular: RRR - Normal S1 and S2 Abdominal: NL Sounds; No Tenderness; No Distention Neurological: Alert and Oriented x 3, NL Muscle Strength and Tone Lines/Tubes/Other Access: Clean, Dry and Intact Peripheral IV Nutrition: Taking PO's Result Diagrams: 04/24/17 06:00 04/24/17 06:00 Assess/Plan/Problems-Billing Mr Kaye is a 46 yo M who has h/o CAD s/p CABG in 2008, HTN, type II DM and HLD who presented to the ER with c/o nausea, vomiting and coffee ground emesis. - Patient Problems (1) Abdominal pain Comment: - Multiple possible etiologies - cardiac pain vs PUD vs Fanta Grimm tear vs cholecysitis. - CT abd/pelvis on arrival only showed mild thickening of distal esophagus. GB US only showed cholelithiasis. - Appreciate GI consult, patient had EGD in 2014 with similiar symptoms with no abnormal findings. Will continue the antiemetics, PPI and carafate. - Appreciate Surgical consult. Patient has long standing history of cholelithiasis with suspected biliary colic. Patient did have leukocytosis with fever on arrival with concern for cholecystitis but as mentioned imaging was negative. Leukocytosis and fever have now resolved. Plan to continue zosyn. - Cardiac cath has been done and is unchanged. Dr. Jauregui has reviewed inherent risks of surgery with patient and family, no further cardiac testing or intervention is recommended prior to surgery. (2) Nausea & vomiting Comment: - The patient has gastroparesis at baseline and nausea/vomiting is improved today. - Will continue to alternate antiemetics. Monitor symptoms. (3) Elevated troponin Comment: - Secondary to demand ischemia. - Trops peaked at 7.27. - Appreciate cardiology consult. Suspect demand ischemia in the setting of biliary colic - Cardiac cath showed pre-existing disease three vessel disease, BARR to LAD widely patent and patent mid-circumflex stent with 70% Circ stenosis. Recommends to continue medical management. - Echo did show newly depressed EF from normal to 35-40%. (4) CAD (coronary artery disease) Comment: - S/P s/p CABG and stenting. - Continue aspirin, atorvastatin, metoprolol XL, NTG patch and ranexa. (5) Diabetes mellitus type 2, controlled, with complications Comment: - Glucose well controlled, but as his PO intake improves, will need to adjust coverage. (6) Hypertension Comment: - Controlled. - Continue metoprolol. (7) DVT prophylaxis Comment: - SCDs only secondary to concerns of upper GI bleeding. (8) Full code status Status and Disposition: Inpatient.
[2017-04-24] MEDS: Aspirin EC Low Dose* 81 MG TAB.EC PO SCH (20:46)
[2017-04-24] MEDS: Metoprolol Succinate XL TAB* 50 MG PO SCH (20:47)
[2017-04-24] MEDS: Senna TAB PO SCH (20:48)
[2017-04-24] MEDS: Nitro Patch/OINT Remove PATCH OFF SCH (21:57)
[2017-04-24] MEDS: fentaNYL PATCH 50 MCG/HR TRANSDERM SCH (23:34)
[2017-04-25] MEDS: Morphine INJ* 2 MG/ML 1 ML SYRINGE IV PRN ×2 (00:53→20:21)
[2017-04-25] MEDS: Metoclopramide IV* 5 MG/ML 2 ML VIAL IV PRN (02:48)
[2017-04-25] MEDS: ZOSYN 3.375 GM Q8H per EXTENDED INFUSION IVPB SCH ×6 (04:05→20:17)
[2017-04-25] MEDS: Pantoprazole IV* 80 MG in NS 0.9% 250 ML* 250 ML IVPB SCH ×2 (04:06→09:57)
[2017-04-25 05:55] LABS: Hematocrit 35 % (42-52); Hemoglobin 12.4 g/dl (14.0-18.0); Mean Corpuscular HGB Conc 35 g/dl (31-36); Mean Corpuscular Hemoglobin 30 pg (27-31); Mean Corpuscular Volume 86 fL (80-94); Mean Platelet Volume 8 um3 (7.4-10.4); Red Blood Count 4.08 10^6/ul (4.0-5.4); Red Cell Distribution Width 13 % (10.5-15); White Blood Count 8.9 10^3/ul (3.5-10.8)
[2017-04-25 06:22] LABS: BUN/Creatinine Ratio 8.9 (8-20); Calcium 8.4 mg/dL (8.6-10.3); EGFR African American 116.3 (>60); EGFR Non-African American 90.4 (>60)
[2017-04-25] MEDS: fentaNYL Patch Check Q Shift 1 NOTE SCH ×2 (07:22→20:13)
[2017-04-25] MEDS: Insulin LISPRO* 1 UNITS UNIT SUBCUT SCH ×5 (07:58→22:24)
[2017-04-25] MEDS: KCL 10 MEQ/50 ML IVPREMIX* 10 MEQ/50 ML BAG IV SCH (07:59)
[2017-04-25] MEDS: Docusate CAP* 100 MG PO SCH (08:40)
[2017-04-25] MEDS: Metoprolol Succinate XL TAB* 25 MG PO SCH (08:40)
[2017-04-25] MEDS: Potassium Chlor TAB* 20 MEQ TAB.ER PO SCH (08:41)
[2017-04-25] MEDS: Sucralfate TAB* 1 GM PO SCH ×4 (08:41→20:17)
[2017-04-25] MEDS: Atorvastatin* 80 MG TAB PO SCH (08:41)
[2017-04-25] MEDS: Pantoprazole IV* 40 MG IV SCH (08:42)
[2017-04-25] MEDS: Nitroglycerin 0.4 MG/HR PATCH* (10 MG) TRANSDERM SCH (09:45)
[2017-04-25] MEDS: CMCS: Ranolazine (NF) 500 MG TAB PO SCH ×2 (09:45→22:23)
--- NOTE | 2017-04-25 12:32 | PN ---
Subjective Date of Service: 04/25/17 Interval History: HOSPITALIST PROGRESS NOTE Patient seen and examined at bedside. He feels better today, in good spirits. Denies abdominal pain, N/V, passing flatus, no BM so far today. Denies chest pain and dyspnea on exertion is at baseline. Family History: Unchanged from Admission Social History: Unchanged from Admission Past Medical History: Unchanged from Admission Objective Active Medications: Acetaminophen (Tylenol Tab*) 650 mg PO Q6H PRN PRN Reason: FEVER/PAIN Last Admin: 04/22/17 19:31 Dose: 650 mg Al Hydrox/Mg Hydrox/Simethicone (Maalox Plus*) 30 ml PO Q6H PRN PRN Reason: nausea/heartburn Last Admin: 04/23/17 17:30 Dose: 30 ml Albuterol (Ventolin 2.5 Mg/3 Ml Neb.Frances*) 2.5 mg INH Q2H PRN PRN Reason: SOB/WHEEZING Aspirin (Aspirin Ec Low Dose*) 81 mg PO 2100 [facility] Last Admin: 04/24/17 20:46 Dose: 81 mg Atorvastatin Calcium (Lipitor*) 80 mg PO DAILY [facility] [place] Last Admin: 04/25/17 08:41 Dose: 80 mg Dextrose (D50w Syringe 50 Ml*) 12.5 gm IV PUSH .FOR FS < 60 - SS PRN PRN Reason: FS < 60 Docusate Sodium (Colace Cap*) 100 mg PO DAILY [facility] Last Admin: 04/25/17 08:40 Dose: 100 mg Fentanyl (Duragesic Patch 50 Mcg/Hr*) 50 mcg TRANSDERM Q72H [facility] [place] Last Admin: 04/24/17 23:34 Dose: 50 mcg Piperacillin Sod/Tazobactam (Sod 3.375 gm/ Sodium Chloride) 100 mls @ 25 mls/ hr IVPB 0430,1230,2030 [facility] [place] Last Admin: 04/25/17 04:05 Dose: 25 mls/hr Insulin Human Lispro (Humalog*) 0 units SUBCUT ACHS [facility] [place] PRN Reason: Protocol Last Admin: 04/25/17 08:39 Dose: 3 units Melatonin (Melatonin (Nf)) 3 mg PO BEDTIME PRN; Protocol PRN Reason: Sleep Last Admin: 04/22/17 21:26 Dose: 3 mg Metoclopramide HCl (Reglan Iv*) 10 mg IV Q6H PRN PRN Reason: NAUSEA/VOMITING Last Admin: 04/25/17 02:48 Dose: 10 mg Metoprolol Succinate (Toprol Xl Tab*) 25 mg PO QAM [facility] [place] Last Admin: 04/25/17 08:40 Dose: 25 mg Metoprolol Succinate (Toprol Xl Tab*) 50 mg PO 2100 [facility] [place] Last Admin: 04/24/17 20:47 Dose: 50 mg Morphine Sulfate (Morphine Inj (Syringe)*) 2 mg IV Q2H PRN PRN Reason: PAIN Last Admin: 04/25/17 00:53 Dose: 2 mg Nitroglycerin (Nitroglycerin 10 Mg Patch*) 1 patch TRANSDERM DAILY [facility] [place] Last Admin: 04/25/17 09:45 Dose: 1 patch Ondansetron HCl (Zofran Inj*) 4 mg IV Q6H PRN PRN Reason: NAUSEA Last Admin: 04/23/17 19:54 Dose: 4 mg Pantoprazole Sodium (Protonix Iv*) 40 mg IV DAILY [facility] [place] Last Admin: 04/25/17 08:42 Dose: 40 mg Pharmacy Consult (Zosyn Per Pharmacy*) 1 note FOLLOW UP .ZOSYN PER PHARMACY [facility] [place] Pharmacy Profile Note (Fentanyl Patch Check Q Shift) 1 note N/A 0700,1900 [facility] [place] Last Admin: 04/25/17 07:22 Dose: 1 note Pharmacy Profile Note (Nitro Patch/Oint Remove*) 1 note PATCH OFF 2099 [facility] [place] Last Admin: 04/24/17 21:57 Dose: Not Given Polyethylene Glycol/Electrolytes (Miralax*) 17 gm PO DAILY PRN PRN Reason: CONSTIPATION Last Admin: 04/23/17 20:41 Dose: 17 gm Potassium Chloride (Klor Con Er Tab*) 20 meq PO DAILY [facility] [place] Last Admin: 04/25/17 08:41 Dose: 20 meq Prochlorperazine Edisylate (Compazine Inj*) 10 mg IV Q6H PRN PRN Reason: NAUSEA/VOMITING Last Admin: 04/23/17 20:00 Dose: 10 mg Quetiapine Fumarate (Seroquel Tab*) 50 mg PO BEDTIME PRN PRN Reason: INSOMNIA Last Admin: 04/25/17 00:19 Dose: 25 mg Ranolazine (Ranexa (Nf)) 1,000 mg PO BID [facility] [place] PRN Reason: Protocol Last Admin: 04/25/17 09:45 Dose: 1,000 mg Senna (Senokot Tab*) 1 tab PO BEDTIME [facility] [place] Last Admin: 04/24/17 20:48 Dose: Not Given Sucralfate (Carafate*) 1 gm PO QID [facility] [place] Last Admin: 04/25/17 08:41 Dose: 1 gm Trimethobenzamide HCl (Tigan Im*) 200 mg IM Q6H PRN PRN Reason: NAUSEA Last Admin: 04/23/17 23:00 Dose: 200 mg Vital Signs 04/25/17 04/25/17 11:00 11:31 Temperature 97.7 F Pulse Rate 61 Respiratory 16 20 Rate Blood Pressure 131/80 (mmHg) O2 Sat by Pulse 98 Oximetry Oxygen Devices in Use Now: Nasal Cannula Appearance: Middle aged gentleman sitting up in bed in NAD. Eyes: No Scleral Icterus Ears/Nose/Mouth/Throat: Mucous Membranes Moist Neck: Trachea Midline Respiratory: Symmetrical Chest Expansion and Respiratory Effort, Clear to Auscultation Cardiovascular: RRR - Normal S1 and S2 Abdominal: NL Sounds; No Tenderness; No Distention Neurological: Alert and Oriented x 3, NL Muscle Strength and Tone Lines/Tubes/Other Access: Clean, Dry and Intact Peripheral IV Nutrition: Taking PO's Result Diagrams: 04/25/17 05:40 04/25/17 05:40 Assess/Plan/Problems-Billing Mr Kaye is a 46 yo M who has h/o CAD s/p CABG in 2008, HTN, type II DM and HLD who presented to the ER with c/o nausea, vomiting and coffee ground emesis. - Patient Problems (1) Abdominal pain Comment: - Multiple possible etiologies - cardiac pain vs PUD vs Fanta Grimm tear vs cholecysitis. - CT abd/pelvis on arrival only showed mild thickening of distal esophagus. GB US only showed cholelithiasis. - Appreciate GI consult, patient had EGD in 2014 with similiar symptoms with no abnormal findings. Will continue the antiemetics, PPI and carafate. - Appreciate Surgical consult. Patient has long standing history of cholelithiasis with suspected biliary colic. Patient did have leukocytosis with fever on arrival with concern for cholecystitis but as mentioned imaging was negative. Leukocytosis and fever have now resolved. Plan to continue zosyn. - Cardiac cath has been done and is unchanged. Dr. Jauregui has reviewed inherent risks of surgery with patient and family, no further cardiac testing or intervention is recommended prior to surgery. - Plan for elective cholecystectomy 05/04/17. (2) Nausea & vomiting Comment: - The patient has gastroparesis at baseline and nausea/vomiting continues to improve. - Will continue to alternate antiemetics. Monitor symptoms. (3) Elevated troponin Comment: - Secondary to demand ischemia. - Trops peaked at 7.27. - Appreciate cardiology consult. Suspect demand ischemia in the setting of biliary colic - Cardiac cath showed pre-existing disease three vessel disease, BARR to LAD widely patent and patent mid-circumflex stent with 70% Circ stenosis. Recommends to continue medical management. - Echo did show newly depressed EF from normal to 35-40%. (4) CAD (coronary artery disease) Comment: - S/P s/p CABG and stenting. - Continue aspirin, atorvastatin, metoprolol XL, NTG patch and ranexa. (5) Diabetes mellitus type 2, controlled, with complications Comment: - Glucose well controlled, but as his PO intake improves, will need to adjust coverage. (6) Hypertension Comment: - Controlled. - Continue metoprolol. (7) DVT prophylaxis Comment: - SCDs only secondary to concerns of upper GI bleeding. (8) Full code status Status and Disposition: Inpatient. Transfer to Telemetry.
--- NOTE | 2017-04-25 14:16 | PN ---
Progress Note - Progress Note Date of Service: 04/25/17 SOAP: Subjective: Reports doing much better today. Denies any pain, nausea, vomiting, fever or chills. Tolerating reduced fat diet, moving his bowel. Events and reports from weekend were reviewed. Negative cardiac cath at this point. Patient would like to proceed with cholecystectomy as an outpatient as soon as he could. Transferred to medical floor earlier today. Objective: Awake and alert. VSS, afebrile Abdomen soft, NT, ND No guarding, rigidity or rebound noted. Negative Connell's sign. Labs noted, leukocytosis resolved. Ext without edema I/Os noted Assessment: A 46 y/o male with presumed acute cholecystitis, improving with IV antibiotics. Plan: Cont. Abx, probably to convert to PO Abx by tomorrow in anticipation for d/c to home. F/U with [facility] to arrange for elective cholecystectomy in the near future.
[2017-04-25] MEDS: Nitro Patch/OINT Remove PATCH OFF SCH (20:19)
[2017-04-25] MEDS: Aspirin EC Low Dose* 81 MG TAB.EC PO SCH (22:23)
[2017-04-25] MEDS: Senna TAB PO SCH (22:24)
[2017-04-25] MEDS: Metoprolol Succinate XL TAB* 50 MG PO SCH (22:24)
[2017-04-26] MEDS: ZOSYN 3.375 GM Q8H per EXTENDED INFUSION IVPB SCH ×2 (05:18)
[2017-04-26] MEDS: fentaNYL Patch Check Q Shift 1 NOTE SCH (06:39)
[2017-04-26] MEDS: Potassium Chlor TAB* 20 MEQ TAB.ER PO SCH (08:30)
[2017-04-26] MEDS: Insulin LISPRO* 1 UNITS UNIT SUBCUT SCH (08:30)
[2017-04-26] MEDS: Metoprolol Succinate XL TAB* 25 MG PO SCH (08:31)
[2017-04-26] MEDS: Sucralfate TAB* 1 GM PO SCH (08:31)
[2017-04-26] MEDS: Docusate CAP* 100 MG PO SCH (08:31)
[2017-04-26] MEDS: Atorvastatin* 80 MG TAB PO SCH (08:31)
[2017-04-26] MEDS: Nitroglycerin 0.4 MG/HR PATCH* (10 MG) TRANSDERM SCH (08:34)
[2017-04-26] MEDS: CMCS: Ranolazine (NF) 500 MG TAB PO SCH (09:55)
[2017-04-26] MEDS: Pantoprazole IV* 40 MG IV SCH (09:55)
--- NOTE | 2017-04-26 10:44 | PN ---
Progress Note - Progress Note Date of Service: 04/26/17 SOAP: Subjective: Patient seen and examined, continues to improve. Denies any abd pain, nausea, vomiting, fever or chills. Tolerating diet and had a bowel movement yesterday. He was seen by Dr. Rob earlier this AM. Objective: Awake and alert, walking down the soriano, comfortable and in NAD VSS, afebrile Lungs CTA bilat. Heart RRR, no murmurs Abdomen soft, NT, ND. No guarding, rigidity or rebound, negative Connell's sign. Ext. without edema No labs today Assessment: A 46 y/o male with acute cholecystitis, responding well to conservative measures and Abx, with hx significant CAD Plan: Per Dr. Rob, anaesthesia will evaluate patient during this admission. Plan to proceed with lap ruth as an outpatient next week. Patient understands and agrees to plans. Likely home later today on PO Abx
[2017-04-26 11:59] VITALS: BP 155/81
--- NOTE | 2017-04-27 05:56 | DS ---
CC: Dr. Tito Saunders; Dr. Jauregui; Dr. Steve Rob; Dr. Evelyn Tineo * DISCHARGE SUMMARY: DATE OF ADMISSION: 04/21/17 DATE OF DISCHARGE: 04/26/17 PRIMARY CARE PROVIDER: Dr. Tito Saunders. CONSULTING RETOUCHER: Dr. Jauregui. CONSULTING GENERAL SURGEON: Dr. Steve Rob. CONSULTING ANESTHESIOLOGIST: Dr. Evelyn Tineo. DISCHARGE DIAGNOSES: 1. Sepsis, present on admission. 2. Possible acute cholecystitis/biliary colic. 3. Gastroparesis with emetogenic esophagitis. 4. Demand ischemia. 5. Recurrent nausea and vomiting. 6. Leukocytosis. 7. Hypokalemia. 8. Lactic acidosis. SECONDARY DIAGNOSES: 1. Hypertension. 2. Coronary artery disease, status post PCI and CABG. 3. Type 2 diabetes. 4. Chronic pain. 5. Hyperlipidemia. MEDICATION LIST: 1. Lantus 30 units subcutaneously q.a.m. to be resumed when glucose is greater than 200. 2. Fentanyl patch 50 mcg topical q.72 hours. 3. Ranexa 1000 mg p.o. b.i.d. 4. Oxycodone 5 mg p.o. q.4 hours p.r.n. pain. 5. Ursodiol 300 mg p.o. b.i.d. 6. Colace 100 mg p.o. daily as needed for constipation. 7. Aspirin 81 mg p.o. daily. 8. Metoprolol succinate 25 mg p.o. in the morning and 50 mg p.o. in the evening. 9. Metoclopramide 10 mg p.o. b.i.d. with meals. 10. Ramipril 5 mg p.o. at bedtime. 11. Nitroglycerin 0.4 mg an hour patch, topical daily, remove at bedtime. 12. Pantoprazole 40 mg p.o. q.a.m. 13. Seroquel 50 mg p.o. at bedtime as needed for insomnia. NEW MEDICATIONS: 1. NovoLog sliding scale as follows: Fingerstick 131 to 150, 2 units; 151 to 200, 3 units; 201 to 250, 6 units; 251 to 300, 9 units; 301 to 350, 12 units; 351 to 400, 15 units; greater than 400 call MD. 2. Zofran 4 mg p.o. t.i.d. as needed for nausea. 3. Sucralfate 1 g p.o. 4 times a day. 4. Potassium chloride 20 mEq p.o. daily. 5. Atorvastatin was increased to 80 mg p.o. daily. 6. Amoxicillin 875 mg p.o. b.i.d. for 3 more days. HOSPITAL COURSE: Mr. Kaye is a 46-year-old male with a past history as stated above that presented to the emergency room on 04/21/17 with complaints of abdominal pain, recurrent nausea and vomiting, and possible coffee-ground emesis. The pain was described as epigastric, sharp, stabbing in nature and was associated with chest pain when he vomited. For more details about his presentation, I refer to his history and physical. In the emergency room, the patient met sepsis criteria with a temperature of 101.1 and leukocytosis 16,000. He had a CT of the abdomen and pelvis that showed no acute CT findings, no mass or inflammatory changes, mild hepatomegaly with hepatic steatosis, contracted gallbladder with small gallstones, mild thickening of the distal esophagus. The patient also had a gallbladder ultrasound that showed cholelithiasis, fatty infiltration of the liver, and nonobstructing small right renal calculus. He was admitted for further evaluation and management. The patient was also found to have elevation of his troponin. Initially, it was 0.01 and he peaked at 7.6. What caused his clinical picture should be even more confusing as his epigastric pain was felt it could be secondary to coronary artery disease or a GI process including something esophageal, something gastric, or related to his gallbladder. The patient had a transthoracic echocardiogram that showed mild concentric LVH with multiple regional wall motion abnormalities with an ejection fraction of 35 % to 40%, mild aortic stenosis, [id number] aortic regurgitation, and ejection fraction was decreased from 68%, but this prior echo was in 2008. The patient was seen in consultation by Cardiology (Dr. Jauregui) and his impression was the patient has a significant history of coronary artery disease , presented with nausea, vomiting, elevation of troponins and nonspecific lateral ST-T changes. His troponin has been increasing raising the possibility of acute coronary syndrome versus demand ischemia in the setting of a biliary process. He discussed the case with Interventional Cardiology and recommendation was for a cardiac cath especially because it was felt that the patient will probably need a cholecystectomy in the near future and needed further cardiac risk stratification. He was seen by Dr. Farley, boilermaker's assistant, and he performed a cardiac cath that showed that the patient's left main was okay. He had an LAD that was proximally occluded at 100%, circumflex proximal had 60% to 70% occlusion, but the mid stent was patent, OM1 had an ostial 40% stenosis and OM2 had diffuse 60% disease, RCA had a proximal 100% occlusion, the saphenous vein graft to OM had a 100% occlusion, saphenous vein graft to RCA also 100% occlusion, the BARR to LAD was widely patent, it also supplies collaterals to RCA and multiple diagonals. The impression was that the patient had 3-vessel disease with one patent graft and patent mid circumflex stent. The recommendation was to continue medical therapy. Initially, there was concern for possible GI bleed and as the patient would probably need a cholecystectomy in the near future, Dr. Jauregui felt the Plavix did not need to be added at this time. He also felt the patient did not need any further cardiac interventions prior to proposed surgery and he is optimized from a cardiac point of view. The patient was seen in consultation by Gastroenterology (Dr. Ravi) and his impression was that the patient's hematemesis could be secondary to a Fanta- Grimm tear. When he was seen, the patient was not vomiting any more coffee- ground material and Dr. Ravi felt that if he had an ulcer from his aspirin, he is already on Protonix for treatment. He did not think any procedures were indicated at this time, especially considering his cardiac situation. The patient was seen in consultation by General Surgery (Dr. Rob) and the impression was the patient could have a possible biliary colic and also cholecystitis. After reviewing multiple options with the patient, his decision was to complete antibiotic treatment with Zosyn/Augmentin and for the patient to be discharged home to return for elective cholecystectomy next week. The patient had progressive improvement of his symptoms with resolution of his abdominal pain, nausea and vomiting. His leukocytosis has resolved and his hemoglobin has remained stable between 12 to 13. I believe his initial hemoglobin of 16 likely represents hemoconcentration. The patient's troponins also trended down. His lactic acidosis resolved and he was able to tolerate a solid diet. The patient admits being noncompliant with his diet and with his insulin. He states that at home he would skip his Lantus sometime and he was following a sliding scale of his creation that he would give himself some units of insulin depending on his glucose and what he was planning to eat. His hemoglobin A1c was found to be elevated at 9.5 compatible with his uncontrolled diabetes at home. While in the hospital, as the patient was initially n.p.o. with very poor intake, his Lantus was discontinued and he received only a sliding scale with lispro; but even when he increased his oral intake, his glucose remained around the 117 requiring only a sliding scale. The patient states that he has noticed the difference the diet can make on his sugars. He states that he is planning to follow the same diet at home as he has followed in the hospital. At this point, I believe if we resume his Lantus, he is going to experience hypoglycemia , so the recommendation was for him to continue to check his fingersticks 3 times a day at home and cover with a sliding scale as described above. If his glucose goes over 200, then he will resume his Lantus as he was doing before. The patient was seen in consultation by Anesthesia prior to discharge and it is understood that the patient is optimized from a cardiac point of view. I did ask Dr. Jauregui if a repeat echocardiogram was indicated prior to his surgery next week and Dr. Jauregui feels that it would not be enough time to see any changes on his ejection fraction and even if his ejection fraction is reduced, it would not change his management as the concern is if we wait too long to perform this surgery, he could have another episode of biliary colic/ cholecystitis or even pancreatitis and we would be back at square one. I discussed the case with Dr. Tineo and encouraged him to talk directly with Dr. Jauregui about his concerns regarding the patient's echo and reduced ejection fraction. I also discussed the case with Dr. Rob. He recommended 3 more days of oral antibiotics as outpatient and he states that his office will contact the patient to make arrangements for surgery next week. A tentative plan is for the patient to return for surgery on 05/04/17. He will receive information regarding when to be n.p.o., when to stop his medications coming Dr. Bollo's office, but due to his significant history of coronary artery disease, he should be kept on his cardiac medications including aspirin for as long as possible, but it is understood that some of his medications will have to be held for his procedure. Also, the hospitalist service should be reconsulted when patient returns next week as he is very complex at a very high risk for complications and would likely need to be monitored in the intensive care unit after his procedure. The patient is medically stable to be discharged home today. PHYSICAL EXAMINATION: Vital Signs: Temperature 97.7, heart rate is 61, respiratory rate is 18, oxygen saturation is 99% on room air, blood pressure is 155/81. General: The patient is pleasant, middle-aged male, sitting up in bed , in no acute distress. CVS: Normal S1 and S2. Regular rate and rhythm. Chest: Breath sounds heard bilaterally with no added sounds. Abdomen is soft, nontender, nondistended. Bowel sounds present. Extremities: No edema. Neuro : He is alert, awake, oriented x3. Able to move all 4 extremities. DIET: Heart healthy, consistent carb, low fat diet. ACTIVITY: As tolerated. DISPOSITION: To home. STATUS WHILE IN THE HOSPITAL: Inpatient. Please keep in mind this is a summarized version of this patient's complex and prolonged hospital stay. If you need more information, please feel free to call me at [phone] or please obtain the full medical records. TIME SPENT: Approximately 50 minutes were spent to complete this discharge. [id number]/CPS #: [id number] MTDD
[2017-04-27] MEDS ORDERED: Pantoprazole IV* 40 MG IV SCH (09:00)
== END 2017-04-26 12:40 | disposition home or self-care (01) | DRG 286 ==
LOC: ED 17:18 → ICU 22:08 → MEDTELE 04-25 11:31
PROVIDERS: ADMIT Hospitalist; ATTEND Internal Medicine
PROC: B2111ZZ Fluoroscopy of Multiple Coronary Arteries using Low Osmolar Contrast (ICD-10-PCS; principal; 2017-04-21)
PROC: 4A023N7 Measurement of Cardiac Sampling and Pressure, Left Heart, Percutaneous Approach (ICD-10-PCS; 2017-04-21)
DX: I24.8 Other forms of acute ischemic heart disease (principal); A41.9 Sepsis, unspecified organism; K92.0 Hematemesis; K22.6 Gastro-esophageal laceration-hemorrhage syndrome; K80.62 Calculus of gallbladder and bile duct with acute cholecystitis without obstruction; E87.2 Acidosis; K31.84 Gastroparesis; E11.43 Type 2 diabetes mellitus with diabetic autonomic (poly)neuropathy; E11.65 Type 2 diabetes mellitus with hyperglycemia; I10 Essential (primary) hypertension; I25.10 Atherosclerotic heart disease of native coronary artery without angina pectoris; G89.29 Other chronic pain; E78.5 Hyperlipidemia, unspecified; F12.90 Cannabis use, unspecified, uncomplicated; E86.0 Dehydration; E78.00 Pure hypercholesterolemia, unspecified; M19.90 Unspecified osteoarthritis, unspecified site; G43.909 Migraine, unspecified, not intractable, without status migrainosus; F41.0 Panic disorder [episodic paroxysmal anxiety]; F31.9 Bipolar disorder, unspecified; I25.5 Ischemic cardiomyopathy; M54.5 Low back pain; R74.8 Abnormal levels of other serum enzymes; R10.9 Unspecified abdominal pain; E66.9 Obesity, unspecified; K59.03 Drug induced constipation; T40.4X5A Adverse effect of other synthetic narcotics, initial encounter; K20.8 Other esophagitis; E87.6 Hypokalemia; K76.0 Fatty (change of) liver, not elsewhere classified; R16.0 Hepatomegaly, not elsewhere classified; N20.0 Calculus of kidney; I35.2 Nonrheumatic aortic (valve) stenosis with insufficiency; Z95.1 Presence of aortocoronary bypass graft; Z88.1 Allergy status to other antibiotic agents; Z82.49 Family history of ischemic heart disease and other diseases of the circulatory system; Z68.30 Body mass index [BMI] 30.0-30.9, adult; Z83.3 Family history of diabetes mellitus; Z83.49 Family history of other endocrine, nutritional and metabolic diseases; I25.2 Old myocardial infarction; Z56.0 Unemployment, unspecified; Z80.9 Family history of malignant neoplasm, unspecified; Z79.4 Long term (current) use of insulin; Z79.82 Long term (current) use of aspirin; Z91.14 Patient's other noncompliance with medication regimen; Z87.891 Personal history of nicotine dependence; Z95.5 Presence of coronary angioplasty implant and graft
CPT/HCPCS: 36415; 71010; 74177; 76705; 80048; 80053; 80061; 81003; 82271; 82947; 83036; 83605; 83690; 83735; 84484; 85014; 85018; 85025; 85730; 86140; 87040; 87077; 87150; 87205; 87641; 93005; 93306; 93454; A9270-GY; C1760; C1887; C8929; J0583; J0780; J1644; J2001; J2060; J2250; J2270; J2405; J2543; J2765; J3010; J3250; J3480; Q9967

== ENCOUNTER 2017-05-04 06:11 | Observation (INO) | payer MEDICARE ==
[~2017-05-04 06:11] MED LIST: Buffered Lidocaine 0.9% SYRIN* 5 ML/SYR SYRINGE INTRADERM ONE; Famotidine IV* 10 MG/ML 2 ML (20 mg) IV ONE; Morphine INJ* 2 MG/ML 1 ML SYRINGE IV PRN; PROCHLORPERAZINE INJ 5 MG/ML 2 ML VIAL IV PRN
[2017-05-04] MEDS ORDERED: ceFAZolin 2 GM PREMIX (*) 100 ML IVPB ONE (07:00)
[2017-05-04] MEDS ORDERED: ceFAZolin 2 GM PREMIX (*) 50 ML IVPB ONE (07:00)
[2017-05-04] MEDS ORDERED: Famotidine IV* 10 MG/ML 2 ML (20 mg) ONE (07:07)
[2017-05-04] MEDS ORDERED: Bupivacaine 0.5% W/EPI SDV* 30 ML VIAL ONE (07:12)
[2017-05-04] MEDS ORDERED: Bupivacaine 0.25% SDV* 30 ML ONE (07:12)
[2017-05-04] MEDS ORDERED: nitroGLYCERIN DRIP* 25,000 MCG in PREMIX* 0 ML IV SCH (07:15)
[2017-05-04] MEDS ORDERED: Insulin REGULAR(*) 1 UNITS UNIT ONE ×2 (07:17→08:53)
[2017-05-04] MEDS ORDERED: KETAMINE HCL* 50 MG/ML 10 ML VIAL ONE (07:24)
[2017-05-04] MEDS ORDERED: Midazolam* 1 MG/ML 5 ML VIAL (5 MG) ONE (07:24)
[2017-05-04] MEDS ORDERED: fentaNYL* 50 MCG/ML 5 ML VIAL (250 MCG VIAL) ONE (07:24)
[2017-05-04] MEDS ORDERED: Atracurium* 10 MG/ML 10 ML VIAL ONE (07:24)
--- NOTE | 2017-05-04 07:47 | PN ---
Progress Note - Progress Note Date of Service: 05/04/17 Note: AQnesthesia: see preop form. I have explained to patient his very high risk of from this case. aA perioperative ME carries at [place] a 50% rate, I as an estimate told him he had a 50% chance of an ME, therefore his risk of is at least 25%.I offered him the options of going to a tertiary care hospital with more and better options for cardiac care, not going ahead with the case or proceeding. Lanette opted to proceed today. He has asked me to NOT speak to his about his risk. I encouraged him to have that conversation.
[2017-05-04] MEDS ORDERED: oxyCODONE/Acetamin 5/325 MG* TAB PO PRN (09:11)
--- NOTE | 2017-05-04 09:11 | SURGPN ---
Brief Operative Note - Surgery Procedures: Procedures Pre-OP Diagnoses: chronic cholecystitis Post-op Diagnosis: same Procedure: Laparoscopic cholecystectomy Surgeon: Liane Asst: Anna Pimenteltherosas: BERNADETTE Clancy EBL: minimal IVF: 1300cc crystalloid Specimen: gallbladder Drains: none
[2017-05-04] MEDS ORDERED: Docusate CAP* 100 MG PO PRN (09:14)
[2017-05-04] MEDS ORDERED: Ondansetron ODT TAB* 4 MG PO PRN (09:14)
[2017-05-04] MEDS ORDERED: QUEtiapine TAB* 25 MG PO PRN (09:14)
[2017-05-04] MEDS ORDERED: Propofol* 10 MG/ML 20 ML BTL IV PUSH ONE (09:38)
[2017-05-04] MEDS ORDERED: Ondansetron INJ* 2 MG/ML VIAL ONE (09:38)
[2017-05-04] MEDS ORDERED: Neostigmine Methylsulfate* 2 MG/2 ML SYRINGE ONE (09:38)
[2017-05-04] MEDS ORDERED: Glycopyrrolate IV* 0.2 MG/ML 1 ML VIAL ONE (09:38)
[2017-05-04] MEDS ORDERED: PROCHLORPERAZINE INJ 5 MG/ML 2 ML VIAL ONE ×2 (09:38→10:03)
[2017-05-04] MEDS ORDERED: Lidocaine 2% PF * 5 ML VIAL ONE (09:38)
[2017-05-04] MEDS ORDERED: Flumazenil* 0.1 MG/ML 5 ML MDV ONE (09:39)
[2017-05-04] MEDS ORDERED: EPINEPHrine AMP 1 MG/ML ONE (09:39)
[2017-05-04] MEDS ORDERED: Phenylephrine INJ* 10 MG/ML 1 ML VIAL (10 MG) ONE (09:39)
[2017-05-04] MEDS ORDERED: fentaNYL* 50 MCG/ML 2 ML VIAL (100 MCG VIAL) ONE (10:12)
[2017-05-04] MEDS: fentaNYL* 50 MCG/ML 2 ML VIAL (100 MCG VIAL) IV PRN ×4 (10:15→10:47)
[2017-05-04] MEDS ORDERED: Morphine INJ* 10 MG/ML 1 ML SYRINGE ONE (10:52)
[2017-05-04] MEDS: Sucralfate TAB* 1 GM PO SCH ×3 (12:15→21:21)
[2017-05-04] MEDS ORDERED: fentaNYL PATCH 50 MCG/HR TRANSDERM SCH (12:30)
[2017-05-04] MEDS: Metoclopramide TAB* 10 MG PO SCH ×2 (12:32→16:12)
--- NOTE | 2017-05-04 13:07 | OP ---
CC: Dr. Tito Saunders; Dr. Santos Oswald * DATE OF OPERATION: 05/04/17 - ROOM #ICU-02 DATE OF : 68 SURGEON: Steve Rob MD MANAGEMENT CONSULTANT: Bird Castillo MD ANESTHESIOLOGIST: Dr. Clancy ANESTHESIA: General anesthesia. PRE-OP DIAGNOSES: 1. Biliary colic. 2. Chronic cholecystitis. POST-OP DIAGNOSES: 1. Biliary colic. 2. Chronic cholecystitis. OPERATIVE PROCEDURE: Laparoscopic cholecystectomy. ESTIMATED BLOOD LOSS: Minimal blood loss. FLUIDS: 1300 cc of crystalloid fluids. SPECIMENS: Gallbladder. COUNTS: Lap pad count, instrument count correct at the end of the procedure. DESCRIPTION OF PROCEDURE: The patient was identified in the preoperative area, an A-line placed for the patient's cardiac condition by the anesthesiologist. Please see operative report for separate details. The patient's abdomen was marked and he was taken to the operating room and placed on the operating table in supine position. Preoperative antibiotics were given. Sequential devices were placed on bilateral lower extremities. General anesthesia was induced. The patient's abdomen was clipped of hair, prepped and draped in standard surgical fashion and a time-out was performed. Folds of the umbilicus were elevated anteriorly and a Veress needle was inserted into the abdominal cavity, which was then allowed to insufflate to a pressure of 15 mmHg. The patient tolerated the insufflation well. A periumbilical incision was made and a 5 mm trocar was inserted. Laparoscope was inserted through this. There was no evidence of injury from the trocar insertion or from the Veress needle which was then removed. Review of the liver showed mildly congested. Additional trocar was then placed in the following position; a 12 mm in the subxiphoid area and two 5 mm along the right costal margin. Table was repositioned. Gallbladder was identified, it showed minimal adhesions to duodenum. These were taken down with both blunt and sharp dissection exposing the infundibulum. The fundus of the gallbladder was grasped and retracted over the liver. Infundibulum was grasped and retracted towards the right lower quadrant. This gave us critical view along with the common bile duct. Dissection was carried up off the medial aspect of the gallbladder, taking the peritoneal attachments. The lateral aspect was similarly taken. Cystic duct and cystic artery were isolated. The cystic duct was triply clipped and ligated. Cystic artery was doubly clipped and ligated and the gallbladder was removed from the liver bed, placed in endoscopic retrieval bag and brought out through the subxiphoid port site, which had to be somewhat dilated to get the entire gallbladder out. Review of the cystic duct stump, cystic artery stump showed no bleeding or bile leak. Hemostasis was excellent. Table was repositioned back to neutral. Abdomen was allowed to collapse. Trocars removed under direct vision and all 4 skin incisions were reapproximated with skin esperanza. Sterile dressing was applied. The patient tolerated the procedure well, was woken up in the OR and transferred to the PACU in stable condition for planned admission overnight in the ICU setting. [id number]/CPS #: [id number] HENRY
[2017-05-04] MEDS ORDERED: Metoprolol Succinate XL TAB* 50 MG PO SCH (18:00)
[2017-05-04] MEDS ORDERED: Dextrose 50% Syringe 50 ML* 25 GM/50 ML SYRINGE IV PUSH PRN (18:32)
[2017-05-04] MEDS ORDERED: Nitroglycerin 0.4 MG/HR PATCH* (10 MG) TRANSDERM SCH (21:00)
[2017-05-04] MEDS ORDERED: Nitro Patch/OINT Remove PATCH OFF SCH (21:00)
[2017-05-04] MEDS ORDERED: RANOLAZINE 1000 MG PO SCH (21:00)
[2017-05-04] MEDS ORDERED: Ramipril CAP* 5 MG PO SCH (21:00)
[2017-05-04] MEDS: Insulin LISPRO* 1 UNITS UNIT SUBCUT SCH (21:19)
[2017-05-04] MEDS: Ursodiol CAP* 300 MG PO SCH (21:21)
[2017-05-04] MEDS: fentaNYL Patch Check Q Shift 1 NOTE SCH (21:28)
[2017-05-04] MEDS: CMCS Ranolazine (NF) 500 MG TAB PO SCH (22:04)
--- NOTE | 2017-05-05 02:44 | CONS ---
CC: Dr. Jauregui; Dr. Oswald * CARDIOLOGY CONSULTATION NOTE: DATE OF CONSULT: 05/04/17 REASON FOR CONSULTATION: Nausea, post cholecystectomy in a patient with known atherosclerotic disease. CHIEF COMPLAINT: Nausea. HISTORY OF PRESENT ILLNESS: Mr. Kaye is a 47-year-old patient of Dr. Jauregui'roberth with atherosclerotic heart disease, bypass surgery in 1939 and angioplasty and stenting in 2014. The patient had ongoing pain and he does have atherosclerotic heart disease not amenable to revascularization, but additionally there was concern that some of his pain was related to gallbladder issues. The patient underwent a cardiac catheterization on 04/21/17, which showed [place] vessels, occluded LAD, 60% to 70% occlusion of the proximal circ, stent mid vessel patent, OM2 branch 60% occlusion, the right coronary artery was occluded proximally and filled collaterally from the LAD. Graft showed an occluded graft to the right coronary artery, occluded graft to the diagonal or OM branch and the BARR to the LAD was widely patent supplying collateral to the right coronary artery and multiple diagonal branches. The patient underwent laparoscopic cholecystectomy this morning and per verbal discussion with Dr. Rob, the procedure was uncomplicated and went well Postoperatively, the patient was quite nauseated and according to his at the bedside the patient's anginal equivalent includes nausea but always associated with chest discomfort. Currently, he has nausea without any chest, neck, or arm discomfort. PAST MEDICAL HISTORY: 1. Coronary artery disease as above: Three-vessel bypass surgery in 2008, stent to the circumflex in March 2015: Currently showing stent in BARR to the LAD doing well, but due to occluded saphenous vein graft he is dependent on collateral flow to the right coronary artery and some branch occlusion. 2. Hypertension. 3. Type 2 diabetes with gastroparesis. 4. Dyslipidemia. 5. Chronic pain with degenerative joint disease, degenerative disk disease. PAST SURGICAL HISTORY: CABG as above, wisdom teeth extraction. MEDICATIONS: Current inpatient medications include: 1. Aspirin 81 mg a day. 2. D50 p.r.n. 3. Colace 100 mg a day. 4. Duragesic patch. 5. Lantus insulin. 6. Humalog insulin. 7. Lactated Ringer's 125 cc an hour to KVO. 8. Reglan 10 mg a.c. and w/meals. 9. Toprol-XL 50 mg at night and 25 mg in the morning. 10. Nitroglycerin patch 10 mg. 11. Omeprazole 20 mg a day. 12. Zofran p.r.n. 13. Percocet p.r.n. 14. Seroquel 50 mg q.h.s. p.r.n. insomnia. 15. Altace 5 mg q.h.s. 16. Ranexa 1000 mg b.i.d. 17. Carafate 1 g 4 times a day. 18. Actigall 300 mg b.i.d. ALLERGIES: He is allergic to ERYTHROMYCIN. FAMILY HISTORY: His mother at age 63 due to coronary artery disease and his father at age 53 of congestive heart failure. SOCIAL HISTORY: The patient is , supportive . Stopped smoking 30 years ago. No alcohol use. Occasional marijuana for pain control. REVIEW OF SYSTEMS: Not able to be comprehensively obtained as the patient is out from anesthesia, but he denies chest pain, orthopnea, PND. He does note that he has some abdominal pain in the region of his incisions and he complains of nausea, which he says is improved but not resolved with Compazine. PHYSICAL EXAM: The patient is 5 feet 9 inches, weighs 213 pounds with a BMI of 32. Psychologically, coming out of sedation, able to answer questions, knows his . Speech is articulate. He follows commands. Skin: Pale, lukewarm. No rashes or cyanosis. HEENT: Mucous membranes were moderately moist. Neck: Thick, no increased JVP appreciated. Coronary: S1, S2 regular without murmurs or rubs. Breath sounds laterally were clear. Abdomen: Not examined other than active bowel sounds. Lower extremities are free of edema and warmth. DIAGNOSTIC STUDIES/LAB DATA: A 12-lead ECG done in the recovery room at 10 this morning shows normal sinus rhythm, 70 beats per minute, QRS axis of 0 with borderline first-degree AV block, anterior and inferior Qs consistent with old anterior and inferior wall myocardial infarctions and he has some coving STs V1 through V3 and flattened STs in the lateral leads. When this was compared with the EKGs of his admissions earlier in April, the coving has several morphologies but it is not significantly different than what is seen today. Labs from 04/25/17, white count 8.9, hemoglobin 12.4, and platelets 172,000. From 04/23/17, PTT 31.3. From 04/25/17, sodium 136, potassium 4.0, chloride 106 , bicarb 25, glucose 169, BUN 8, creatinine 1.1, ALT of 41, AST 49. Troponin at that time 3.94. CRP of 7.84. Total cholesterol 173, triglycerides 126, LDL cholesterol calculated at 114, and HDL cholesterol 34. TSH 0.72. IMPRESSION: In summary, Bird Kaye is a 47-year-old gentleman who I am seeing in the recovery room status post laparoscopic cholecystectomy with postoperative nausea and abnormal ECG in the setting of atherosclerotic heart disease where he is dependent on collateral flow to the right coronary artery and branch disease. I feel the patient's history and the 's history is different than his typical angina and I am most suspicious of anesthetic effects. Anesthesia had started a nitroglycerin drip and at the time I saw him, this was on 40 mcg per minute and I agree that vasodilatation to maximize blood flow is reasonable, but I also think that his presentation is most likely due to the anesthetic effects and we need to address this. He is going to get an additional Compazine dose and he already has Zofran written for. I saw the patient 3 times throughout the day and he progressively looked better , color improved, and we were able to titrate the nitroglycerin drip off. At the time of this dictation approximately 9 p.m., the patient is completely free of nausea, color is good, he has no complaints and very happy. We will continue to monitor him in the ICU overnight. I have ordered electrolytes and a CBC in the morning and an EKG. I have not ordered troponins but I would not be surprised if these were mildly elevated due to mild perioperative ischemia due to his dependency. This decision could be reconsidered if he develops additional symptoms or EKG changes are noted in the morning. Thank you for allowing me to assist in this nice gentleman's care. [id number]/[facility] #: [id number] HENRY
[2017-05-05 05:57] LABS: Hematocrit 37 % (42-52); Hemoglobin 12.9 g/dl (14.0-18.0); Mean Corpuscular HGB Conc 34 g/dl (31-36); Mean Corpuscular Hemoglobin 30 pg (27-31); Mean Corpuscular Volume 87 fL (80-94); Mean Platelet Volume 8 um3 (7.4-10.4); Red Blood Count 4.32 10^6/ul (4.0-5.4); Red Cell Distribution Width 13 % (10.5-15); White Blood Count 9.4 10^3/ul (3.5-10.8)
[2017-05-05 06:26] LABS: Albumin 3.8 g/dL (3.2-5.2); BUN/Creatinine Ratio 10.4 (8-20); Calcium 8.9 mg/dL (8.6-10.3); EGFR African American 138.7 (>60); EGFR Non-African American 107.8 (>60); Globulin 2.7 g/dL (2-4); Potassium 3.4 mmol/L (3.5-5.0); Total Bilirubin 0.5 mg/dL (0.2-1.0); Total Protein 6.5 g/dL (6.4-8.9)
[2017-05-05] MEDS: fentaNYL Patch Check Q Shift 1 NOTE SCH (07:12)
[2017-05-05] MEDS: Sucralfate TAB* 1 GM PO SCH ×2 (07:41→13:02)
[2017-05-05] MEDS: Metoclopramide TAB* 10 MG PO SCH ×2 (07:41→13:01)
[2017-05-05] MEDS: CMCS Ranolazine (NF) 500 MG TAB PO SCH (08:54)
[2017-05-05] MEDS: Ursodiol CAP* 300 MG PO SCH (08:55)
[2017-05-05] MEDS: Insulin LISPRO* 1 UNITS UNIT SUBCUT SCH ×2 (08:56→13:01)
[2017-05-05] MEDS ORDERED: Metoprolol Succinate XL TAB* 25 MG PO SCH (09:00)
[2017-05-05] MEDS ORDERED: Omeprazole CAP* 20 MG PO SCH (09:00)
[2017-05-05] MEDS ORDERED: Aspirin EC Low Dose* 81 MG TAB.EC PO SCH (09:00)
[2017-05-05] MEDS ORDERED: Potassium Chlor TAB* 20 MEQ TAB.ER PO SCH (09:00)
[2017-05-05] MEDS ORDERED: Insulin GLARGINE(*) 1 UNITS UNIT SUBCUT SCH (10:00)
[2017-05-05 12:08] VITALS: BP 101/67
--- NOTE | 2017-05-05 12:56 | PN ---
Progress Note - Progress Note Date of Service: 05/05/17 Note: Surgery Progress: S: POD #1. Doing well. Denies pain from surgery. Denies nausea. Shanna diet. Passing flatus. Denies BM. O: Vital Signs - 8 hr 05/05/17 05/05/17 05/05/17 05:00 06:00 06:21 Temperature Pulse Rate 69 60 58 Respiratory 12 11 7 Rate Blood Pressure 107/69 93/55 (mmHg) O2 Sat by Pulse 95 97 98 Oximetry 05/05/17 05/05/17 05/05/17 06:34 07:00 07:50 Temperature Pulse Rate 61 61 Respiratory 15 15 16 Rate Blood Pressure 102/60 109/66 (mmHg) O2 Sat by Pulse 98 96 Oximetry 05/05/17 05/05/17 05/05/17 08:00 08:07 08:55 Temperature 97.7 F Pulse Rate 57 66 Respiratory 12 Rate Blood Pressure 111/72 (mmHg) O2 Sat by Pulse 97 97 Oximetry 05/05/17 05/05/17 05/05/17 09:00 10:00 11:00 Temperature Pulse Rate 58 61 60 Respiratory 14 10 12 Rate Blood Pressure 115/69 110/64 99/64 (mmHg) O2 Sat by Pulse 96 98 93 Oximetry 05/05/17 05/05/17 11:49 12:00 Temperature 99.5 F Pulse Rate 59 Respiratory 13 Rate Blood Pressure 101/67 (mmHg) O2 Sat by Pulse 95 Oximetry Intake and Output Last 24 Hours 05/03/17 05/04/17 05/05/17 05/06/17 06:59 06:59 06:59 06:59 Intake Total 3268.1 200 Output Total 1250 Balance 2018.1 200 Weight 202 lb 3.2 oz 211 lb 13.828 oz Intake: IV Fluids 1836 LR 1836 Medicated IV 32.1 CC - Nitroglycerine/ 32.1 Tridil Oral 1400 200 Output: Urine 1250 Other: Estimated Void Medium # Voids 2 PE: Gen: WN, NAD; somewhat somnolent Heart: reg Lungs: clear Abd: lap incisions ok w/ small amts dried sang drainage; BS+ (somewhat hypoactive); soft, nontender to palp Laboratory Tests 05/05/17 05/05/17 05/05/17 04:10 05:45 05:45 WBC 9.4 Hgb 12.9 L Potassium 3.4 L Glucose 202 H POC Glucose (mg/dL) 158 H 05/05/17 05/05/17 07:41 11:45 WBC Hgb Potassium Glucose POC Glucose (mg/dL) 221 H 196 H A: s/p lap ruth; doing well; ECG reviewed by Dr. Schuster P: ok for d/c home; instructions reviewed
--- NOTE | 2017-05-06 00:48 | DS ---
CC: Dr. Tito Saunders; Rob Jauregui MD * DISCHARGE SUMMARY: DATE OF ADMISSION: 05/04/17 DATE OF DISCHARGE: 05/05/17 ATTENDING SURGEON: Steve Rob MD * (DICTATED BY TOM CARRASCO) HOSPITAL COURSE: Please refer to admission history and physical for admission details. The patient was taken to operating room 05/04/17, at which time he underwent a laparoscopic cholecystectomy with Dr. Rob. Surgery was otherwise unremarkable. Postoperatively, he did have some nausea and it was felt best that he be admitted for observation and monitoring in the ICU, because of his cardiac history. See separate consultation from Dr. Minor. He has continued to improve and on the day of discharge, he is relatively pain free and tolerating diet well. His maximum temperature was 99.1. His other vital signs have been stable. He did have an EKG this morning, which was reviewed by Dr. Jane and felt to be without significant change. PHYSICAL EXAMINATION: Heart: Regular rate and rhythm. Lungs: Clear to auscultation. Abdomen: Laparoscopic incision sites covered with dressings with a small amount of dried sanguinous drainage particularly at the mid epigastric incision. Abdomen is soft and relatively nontender. IMPRESSION: Status post laparoscopic cholecystectomy for cholelithiasis with recurrent biliary colic. PLAN: Home today. Discharge instructions were reviewed. He will return for recheck in our office next , 05/12/17, with Dr. Rob. TOM CARRASCO [id number]/[facility] #: [id number] MTDFernando
[2017-05-06] MEDS ORDERED: Nitro Patch/OINT Remove PATCH OFF SCH (09:00)
== END 2017-05-05 13:50 | disposition home or self-care (01) ==
LOC: OR 06:11 → ICU 09:11
PROVIDERS: ADMIT Surgery; ATTEND Surgery
PROC: 0FT44ZZ Resection of Gallbladder, Percutaneous Endoscopic Approach (ICD-10-PCS; principal; 2017-05-04 07:45)
DX: K80.10 Calculus of gallbladder with chronic cholecystitis without obstruction (principal); I25.10 Atherosclerotic heart disease of native coronary artery without angina pectoris; I10 Essential (primary) hypertension; Z95.1 Presence of aortocoronary bypass graft; Z95.5 Presence of coronary angioplasty implant and graft; E11.43 Type 2 diabetes mellitus with diabetic autonomic (poly)neuropathy; K31.84 Gastroparesis; E78.5 Hyperlipidemia, unspecified; G89.29 Other chronic pain; R94.31 Abnormal electrocardiogram [ECG] [EKG]; Z79.899 Other long term (current) drug therapy; Z79.82 Long term (current) use of aspirin; Z87.891 Personal history of nicotine dependence; Z79.4 Long term (current) use of insulin
CPT/HCPCS: 36415; 80053; 85025; 87641; 88304; 93005; 94760; 96374; 96375; A9270-GY; G0378; J0171; J0690; J0780; J2250; J2270; J2405; J2704; J3010

== ENCOUNTER 2017-05-11 13:08 | Inpatient (IN) | payer MEDICARE ==
[2017-05-11] MEDS: NS 0.9% 1000 ML* 1,000 ML IV SCH ×2 (14:45→21:54)
[2017-05-11 14:50] LABS: Hematocrit 41 % (42-52); Hemoglobin 14.1 g/dl (14.0-18.0); Mean Corpuscular HGB Conc 35 g/dl (31-36); Mean Corpuscular Hemoglobin 30 pg (27-31); Mean Corpuscular Volume 85 fL (80-94); Mean Platelet Volume 9 um3 (7.4-10.4); Red Blood Count 4.76 10^6/ul (4.0-5.4); Red Cell Distribution Width 13 % (10.5-15); White Blood Count 9.5 10^3/ul (3.5-10.8)
[2017-05-11 15:06] LABS: ALT 17 U/L (7-52); AST 15 U/L (13-39); Albumin 4.4 g/dL (3.2-5.2); Alkaline Phosphatase 76 U/L (34-104); Anion Gap 11 mmol/L (2-11); BUN/Creatinine Ratio 10.6 (8-20); Blood Urea Nitrogen 9 mg/dL (6-24); CO2 Carbon Dioxide 25 mmol/L (22-32); Calcium 9.8 mg/dL (8.6-10.3); Chloride 98 mmol/L (101-111); EGFR African American 123.7 (>60); EGFR Non-African American 96.2 (>60); Globulin 3.4 g/dL (2-4); Glucose 288 mg/dL (70-100); Lipase < 10 U/L (11.0-82.0); Potassium 3.5 mmol/L (3.5-5.0); Sodium 134 mmol/L (133-145); Total Protein 7.8 g/dL (6.4-8.9)
[2017-05-11] MEDS ORDERED: Ondansetron INJ* 2 MG/ML VIAL IV ONE (16:09)
[2017-05-11] MEDS ORDERED: Iodixanol* (CONTRAST) 320 MG/ML 100 ML SDV IV ONE (17:11)
[2017-05-11] MEDS ORDERED: Metoclopramide IV* 5 MG/ML 2 ML VIAL IV ONE (17:44)
[2017-05-11 17:46] LABS: Urine Bilirubin Negative (Negative); Urine Glucose 3+(>=500 mg/dL) (Negative); Urine Nitrite Negative (Negative)
--- NOTE | 2017-05-11 18:31 | RAD ---
CLINICAL HISTORY: Vomiting, recent cholecystectomy COMPARISON: April 21, 2017 TECHNIQUE: Multiple contiguous axial CT scans were obtained of the abdomen and pelvis after the administration of intravenous contrast. Coronal and sagittal multiplanar reformations are submitted for review. Oral contrast was administered. FINDINGS: LUNG BASES: The lung bases are clear. LIVER: The liver is diffusely low in attenuation compared to the spleen. There are no focal hepatic parenchymal masses. BILE DUCTS: There is no intrahepatic or extrahepatic biliary dilatation. GALLBLADDER: The gallbladder is not visualized. Surgical clips are noted in the gallbladder fossa. PANCREAS: The pancreas is normal, without mass or ductal dilatation. SPLEEN: Normal in size and appearance. UPPER GI TRACT: Evaluation of the gastrointestinal tract is limited by incomplete gastric distention. The upper GI tract is unremarkable. SMALL BOWEL AND MESENTERY: The small bowel is normal in contour, course, and caliber. There is no obstruction or dilatation. COLON: The colon is normal in contour, course, caliber. There is no pericolonic inflammatory change. There is a tubular, vermiform, hollow viscus that is blind ending, and originates from the cecum, consistent with a normal appendix. There is no periappendiceal inflammatory change. This is best seen on axial images 40 through 49. ADRENALS: Normal bilaterally. KIDNEYS: The kidneys are normal in shape, size, contour, and axis. There is no hydronephrosis or nephrolithiasis. BLADDER: The bladder is incompletely distended but is grossly normal. PELVIC ORGANS: The prostate gland is normal. The seminal vesicles are symmetric. AORTA: The aorta is normal. IVC: Unremarkable LYMPH NODES: There is no lymphadenopathy by size criteria. ABDOMINAL WALL: There is no evidence for abdominal wall hernia. BONES AND SOFT TISSUES: There are mild diffuse degenerative changes. The patient is status post median sternotomy. OTHER: None IMPRESSION: STATUS POST CHOLECYSTECTOMY. FATTY INFILTRATION OF THE LIVER.
[2017-05-11] MEDS ORDERED: Albuterol 2.5 MG/3 ML NEB.SOL* (0.083%) INH PRN (19:50)
[2017-05-11] MEDS ORDERED: LORazepam INJ* 2 MG/ML 1 ML VIAL IV PRN (19:50)
[2017-05-11] MEDS ORDERED: Acetaminophen TAB* 325 MG PO PRN (19:50)
[2017-05-11] MEDS ORDERED: Metoclopramide IV* 5 MG/ML 2 ML VIAL IV PRN (19:52)
--- NOTE | 2017-05-11 19:53 | HP ---
H&P (Free Text) History and Physical: PCP: Chayito Saunders MD Date/Time of Evaluation: 05/11/20171944 CC: N/V x3 days HPI: Mr Kaye is a 47YO male HX CAD/AR/PCI/CABG, DM2, HTN who [place] [facility] [place] Post-dicharge he relates he did well, but developed N/V 3 days ago without chest pain, SOB, palpitations, light-headedness , F/C, change in bowel/bladder, abdominal pain, cough, congestion, or other issues. He decided to present today as the N/V was not improving despite home medications. While in ED he received a dose of ondansetron and metoclopramide IV without resolution of his emesis. Vitals, labs, & CT abd/pel are all benign. PMedHx CAD/AR/PCI/CABG DM2 w/ gastroparesis emetogenic esophagitis HLD Ambulatory Orders Ramipril CAP* [Altace CAP*] 5 mg PO BEDTIME 10/02/14 zzInsulin GLARGINE(*) [zzLantus(*)] 30 units SUBCUT SEE INSTRUCTIONS 10/08/14 Metoclopramide TAB* [Reglan TAB*] 10 mg PO AC 03/20/15 Pantoprazole TAB (NF) [Protonix TAB (NF)] 40 mg PO QAM 03/20/15 Aspirin EC Low Dose* [Ecotrin EC Low Dose 81 MG*] 81 mg PO QAM 04/08/15 Docusate CAP* [Colace Cap*] 100 mg PO DAILY PRN 08/09/16 Metoprolol Succinate XL TAB* [Toprol XL TAB*] 25 mg PO QAM 08/09/16 Metoprolol Succinate XL TAB* [Toprol XL TAB*] 50 mg PO QPM 08/09/16 Nitroglycerin 0.4 MG/HR PATCH* [Nitroglycerin 10 MG PATCH*] 1 patch TRANSDERM SEE INSTRUCTIONS 08/09/16 QUEtiapine TAB* [Seroquel TAB*] 50 mg PO BEDTIME PRN 08/09/16 fentaNYL PATCH 50 MCG/HR* [Duragesic PATCH 50 Mcg/Hr*] 50 mcg TRANSDERM Q72H Ranolazine (Nf) [Ranexa] 1,000 mg PO BID 04/25/17 Amoxicillin/Clavulanate TAB* [Augmentin TAB 875*] 875 mg PO BID #6 tab 04/26/17 Insulin ASPART (NF) [Novolog (NF)] 0 units SUBCUT TID #0 04/26/17 Nitro Patch/OINT Remove* 1 note PATCH OFF 2100 04/26/17 Ondansetron TAB* [Zofran 4 MG Tab*] 4 mg PO TID PRN #0 04/26/17 Sucralfate TAB* [Carafate*] 1 gm PO QID #120 tab 04/26/17 Atorvastatin* [Lipitor 80 MG*] 80 mg PO QAM 04/28/17 Potassium Chlor TAB* [Potassium Chlor TAB 20 MEQ*] 20 meq PO QAM 04/28/17 Allergies Erythromycin Adverse Reaction (Intermediate, Verified 05/11/17 13:11) Nausea And Vomiting PSurgHx CABG cardiac PCI cholecystectomy 05/04/2017 SocHx: former smoker, no alcohol, occasional marijuana denies other recreational drugs; lives with his ; full code status FamHx: positive for CAD, DM2, HTN, HLD ROS: as above, otherwise reviewed and all were negative Constitutional: NAD, normally developed, overweight white male vitals: Vital Signs Temp 36.3 C 05/11/17 14:15 Pulse 77 05/11/17 17:30 Resp 16 05/11/17 17:30 BP 155/81 05/11/17 17:30 Pulse Ox 89 05/11/17 17:30 Intake & Output 05/10/17 05/11/17 05/11/17 23:59 11:59 23:59 Weight 90.718 kg HEENM: atraumatic; sclera/conjunctiva: non-icteric/clear; hearing: clinically intact; oropharynx: clear, mucosa moist Neck: soft tissue: non-tender; thyroid: normal Pulmonary: clear to auscultation bilaterally, good aeration, no accessory muscle use CV: RR/RR, normal S1S2, no carotid bruit, no jugular venous distention, 2+ B DP/ PT, no edema Abdominal: soft, non-distended, non-tender, no rebound/guarding/rigidity, normoactive bowel sounds, no hepatosplenomegaly or masses, no costovertebral angle tenderness Musculoskeletal: general: grossly intact; gait: stable Integumental: normal appearance and texture of exposed skin, cholecystectomy incisions healing well without erythema, warmth, discharge, malodor, induration , or tenderness Psychiatric orientation: AA&O to PPS affect: calm mood: cooperative eye contact: good content: reliable responses: timely insight: good Testing: Lab Results 05/11/17 05/11/17 05/11/17 Range/Units 14:35 14:35 14:35 WBC 9.5 (3.5-10.8) 10^3/ul RBC 4.76 (4.0-5.4) 10^6/ul Hgb 14.1 (14.0-18.0) g/dl Hct 41 L (42-52) % MCV 85 (80-94) fL MCH 30 (27-31) pg MCHC 35 (31-36) g/dl RDW 13 (10.5-15) % Plt Count 212 (150-450) 10^3/ul MPV 9 (7.4-10.4) um3 Neut % (Auto) 71.0 (38-83) % Lymph % (Auto) 19.4 L (25-47) % [place] % (Auto) 8.5 (1-9) % Eos % (Auto) 0.5 (0-6) % Baso % (Auto) 0.6 (0-2) % Absolute Neuts (auto) 6.8 (1.5-7.7) 10^3/ul Absolute Lymphs (auto) 1.8 (1.0-4.8) 10^3/ul Absolute Monos (auto) 0.8 (0-0.8) 10^3/ul Absolute Eos (auto) 0 (0-0.6) 10^3/ul Absolute Basos (auto) 0.1 (0-0.2) 10^3/ul Absolute Nucleated RBC 0.01 10^3/ul Nucleated RBC % 0.1 INR (Anticoag Therapy) 1.02 (0.89-1.11) APTT 33.3 (26.0-36.3) seconds Sodium 134 (133-145) mmol/L Potassium 3.5 (3.5-5.0) mmol/L Chloride 98 L (101-111) mmol/L Carbon Dioxide 25 (22-32) mmol/L Anion Gap 11 (2-11) mmol/L BUN 9 (6-24) mg/dL Creatinine 0.85 (0.67-1.17) mg/dL Est GFR ( Amer) 123.7 (>60) Est GFR (Non-Af Amer) 96.2 (>60) BUN/Creatinine Ratio 10.6 (8-20) Glucose 288 H (70-100) mg/dL Lactic Acid (0.5-2.0) mmol/L Calcium 9.8 (8.6-10.3) mg/dL Magnesium Pending Total Bilirubin 0.70 (0.2-1.0) mg/dL AST 15 (13-39) U/L ALT 17 (7-52) U/L Alkaline Phosphatase 76 (34-104) U/L C-Reactive Protein 5.70 H (< 5.00) mg/L Total Protein 7.8 (6.4-8.9) g/dL Albumin 4.4 (3.2-5.2) g/dL Globulin 3.4 (2-4) g/dL Albumin/Globulin Ratio 1.3 (1-3) Lipase < 10 L (11.0-82.0) U/L Urine Color Urine Appearance Urine pH (5-9) Ur Specific [place] (1.010-1.030) Urine Protein (Negative) Urine Ketones (Negative) Urine Blood (Negative) Urine Nitrate (Negative) Urine Bilirubin (Negative) Urine Urobilinogen (Negative) Ur Leukocyte Esterase (Negative) Urine Glucose (Negative) 05/11/17 05/11/17 Range/Units 14:35 17:30 WBC (3.5-10.8) 10^3/ul RBC (4.0-5.4) 10^6/ul Hgb (14.0-18.0) g/dl Hct (42-52) % MCV (80-94) fL MCH (27-31) pg MCHC (31-36) g/dl RDW (10.5-15) % Plt Count (150-450) 10^3/ul MPV (7.4-10.4) um3 Neut % (Auto) (38-83) % Lymph % (Auto) (25-47) % [place] % (Auto) (1-9) % Eos % (Auto) (0-6) % Baso % (Auto) (0-2) % Absolute Neuts (auto) (1.5-7.7) 10^3/ul Absolute Lymphs (auto) (1.0-4.8) 10^3/ul Absolute Monos (auto) (0-0.8) 10^3/ul Absolute Eos (auto) (0-0.6) 10^3/ul Absolute Basos (auto) (0-0.2) 10^3/ul Absolute Nucleated RBC 10^3/ul Nucleated RBC % INR (Anticoag Therapy) (0.89-1.11) APTT (26.0-36.3) seconds Sodium (133-145) mmol/L Potassium (3.5-5.0) mmol/L Chloride (101-111) mmol/L Carbon Dioxide (22-32) mmol/L Anion Gap (2-11) mmol/L BUN (6-24) mg/dL Creatinine (0.67-1.17) mg/dL Est GFR ( Amer) (>60) Est GFR (Non-Af Amer) (>60) BUN/Creatinine Ratio (8-20) Glucose (70-100) mg/dL Lactic Acid 2.6 H* (0.5-2.0) mmol/L Calcium (8.6-10.3) mg/dL Magnesium Total Bilirubin (0.2-1.0) mg/dL AST (13-39) U/L ALT (7-52) U/L Alkaline Phosphatase (34-104) U/L C-Reactive Protein (< 5.00) mg/L Total Protein (6.4-8.9) g/dL Albumin (3.2-5.2) g/dL Globulin (2-4) g/dL Albumin/Globulin Ratio (1-3) Lipase (11.0-82.0) U/L Urine Color Rosa Urine Appearance Clear Urine pH 6.0 (5-9) Ur Specific [place] 1.027 (1.010-1.030) Urine Protein Negative (Negative) Urine Ketones 1+ H (Negative) Urine Blood Negative (Negative) Urine Nitrate Negative (Negative) Urine Bilirubin Negative (Negative) Urine Urobilinogen Negative (Negative) Ur Leukocyte Esterase Negative (Negative) Urine Glucose 3+(>=500 mg/dl) H (Negative) ECG, personally reviewed: NSR rate 69, no ischemia, poor R-wave progression, stable J-point elevation in V1/2 CT abd/pel WO, personally reviewed: IMPRESSION: STATUS POST CHOLECYSTECTOMY. FATTY INFILTRATION OF THE LIVER. Impression: 47M HX DM2 w/ gastroparesis who is POD 7 cholecystectomy presenting with intractable N/V DIAGNOSIS & PLAN Primary intractable N/V : IVFs & clear liquid diet : anti-emetics : continue sucralfate : supportive care Secondary CAD/AR/PCI/CABG : continue aspirin, ramipril, metoprolol, nitro patch, & ranolazine DM2 w/ gastroparesis : IVFs & clear liquid diet : basal/correctional insulin : Q4H glucometry HLD : continue atorvastatin once reconciled Admission Rational: observation for intractable N/V DVTp: AZEEM Code Status: full HCP:
[2017-05-11] MEDS ORDERED: Pantoprazole IV* 40 MG IV SCH (20:00)
[2017-05-11] MEDS ORDERED: PROCHLORPERAZINE INJ 5 MG/ML 2 ML VIAL ONE (20:11)
[2017-05-11] MEDS: PROCHLORPERAZINE INJ 5 MG/ML 2 ML VIAL IV PRN (20:12)
[2017-05-11] MEDS ORDERED: Docusate CAP* 100 MG PO PRN (20:12)
[2017-05-11] MEDS: Sucralfate TAB* 1 GM PO SCH (21:54)
[2017-05-11] MEDS: Famotidine IV* 10 MG/ML 2 ML (20 mg) IV SCH (21:55)
[2017-05-11] MEDS: Insulin GLARGINE(*) 1 UNITS UNIT SUBCUT SCH (22:35)
[2017-05-11] MEDS: Insulin LISPRO* 1 UNITS UNIT SUBCUT SCH (22:35)
[2017-05-11] MEDS ORDERED: QUEtiapine TAB* 25 MG PO PRN (23:19)
[2017-05-11] MEDS ORDERED: fentaNYL PATCH 50 MCG/HR TRANSDERM SCH (23:45)
[2017-05-12] MEDS: Insulin LISPRO* 1 UNITS UNIT SUBCUT SCH ×6 (00:43→21:21)
[2017-05-12] MEDS: Nitroglycerin 0.4 MG/HR PATCH* (10 MG) TRANSDERM SCH (01:57)
[2017-05-12] MEDS: Ondansetron INJ* 2 MG/ML VIAL IV PRN ×2 (03:28→09:18)
[2017-05-12] MEDS: PROCHLORPERAZINE INJ 5 MG/ML 2 ML VIAL IV PRN (05:22)
[2017-05-12 05:47] LABS: Hematocrit 36 % (42-52); Hemoglobin 12.7 g/dl (14.0-18.0); Mean Corpuscular HGB Conc 35 g/dl (31-36); Mean Corpuscular Hemoglobin 30 pg (27-31); Mean Corpuscular Volume 86 fL (80-94); Mean Platelet Volume 9 um3 (7.4-10.4); Red Blood Count 4.17 10^6/ul (4.0-5.4); Red Cell Distribution Width 13 % (10.5-15); White Blood Count 8.5 10^3/ul (3.5-10.8)
[2017-05-12 06:08] LABS: BUN/Creatinine Ratio 8.3 (8-20); Calcium 8.9 mg/dL (8.6-10.3); EGFR African American 149.8 (>60); EGFR Non-African American 116.5 (>60)
[2017-05-12 06:13] LABS: Potassium 3.4 mmol/L (3.5-5.0)
[2017-05-12] MEDS: fentaNYL Patch Check Q Shift 1 NOTE SCH ×2 (06:43→19:30)
[2017-05-12] MEDS: Aspirin EC Low Dose* 81 MG TAB.EC PO SCH (07:38)
[2017-05-12] MEDS: Metoprolol Succinate XL TAB* 25 MG PO SCH (07:38)
[2017-05-12] MEDS: CMCS: Ranolazine (NF) 500 MG TAB PO SCH ×2 (07:38→21:25)
[2017-05-12] MEDS: Atorvastatin* 80 MG TAB PO SCH (07:38)
[2017-05-12] MEDS: Sucralfate TAB* 1 GM PO SCH ×4 (07:38→21:20)
[2017-05-12] MEDS: Famotidine IV* 10 MG/ML 2 ML (20 mg) IV SCH ×2 (09:18→21:20)
--- NOTE | 2017-05-12 09:36 | PN ---
Subjective Date of Service: 05/12/17 Interval History: HOSPITALIST PROGRESS NOTE Patient seen and examined at bedside. He feels a little better today. Denies abdominal pain, still has some nausea, but relieved by meds. Tolerated clear liquids and willing to try full liquids. Family History: Unchanged from Admission Social History: Unchanged from Admission Past Medical History: Unchanged from Admission Objective Active Medications: Acetaminophen (Tylenol Tab*) 650 mg PO Q6H PRN PRN Reason: FEVER/PAIN Albuterol (Ventolin 2.5 Mg/3 Ml Neb.Frances*) 2.5 mg INH Q2H PRN PRN Reason: SOB/WHEEZING Aspirin (Aspirin Ec Low Dose*) [facility] Last Admin: 05/12/17 07:38 Dose: 81 mg Atorvastatin Calcium (Lipitor*) 80 mg PO [facility] Last Admin: 05/12/17 07:38 Dose: 80 mg Docusate Sodium (Colace Cap*) 100 mg PO DAILY PRN PRN Reason: CONSTIPATION Last Admin: 05/11/17 21:55 Dose: 100 mg Famotidine (Pepcid Iv*) 20 mg IV Q12H [facility] Last Admin: 05/12/17 09:18 Dose: 20 mg Fentanyl (Duragesic Patch 50 Mcg/Hr*) 50 mcg TRANSDERM Q72H [facility] Last Admin: 05/12/17 00:36 Dose: 50 mcg Lactated Ringer's (Lactated Ringers 1000 Ml Bag*) 1,000 mls @ 125 mls/hr IV PER RATE [facility] Last Admin: 05/12/17 07:36 Dose: 125 mls/hr Insulin Glargine (Lantus(*)) 18 units SUBCUT 2100 [facility] Stop: 05/12/17 20:00 Last Admin: 05/11/17 22:35 Dose: 18 units Insulin Human Lispro (Humalog*) 0 units SUBCUT Q4H [facility] PRN Reason: Protocol Last Admin: 05/12/17 07:40 Dose: Not Given Lorazepam (Ativan Inj*) 1 mg IV BEDTIME PRN PRN Reason: intractable N/V Last Admin: 05/11/17 21:54 Dose: 1 mg Metoclopramide HCl (Reglan Iv*) 10 mg IV Q6H PRN PRN Reason: NAUSEA Metoprolol Succinate (Toprol Xl Tab*) 25 mg PO [facility] Last Admin: 05/12/17 07:38 Dose: 25 mg Metoprolol Succinate (Toprol Xl Tab*) 50 mg PO QPM [facility] Nitroglycerin (Nitroglycerin 10 Mg Patch*) 1 patch TRANSDERM Q24H [facility] Last Admin: 05/12/17 01:57 Dose: Not Given Ondansetron HCl (Zofran Inj*) 4 mg IV Q6H PRN PRN Reason: NAUSEA Last Admin: 05/12/17 09:18 Dose: 4 mg Pharmacy Profile Note (Nitro Patch/Oint Remove*) 1 note PATCH OFF 1200 [facility] Pharmacy Profile Note (Fentanyl Patch Check Q Shift) 1 note N/A 0700,1900 [facility] Last Admin: 05/12/17 06:43 Dose: 1 note Prochlorperazine Edisylate (Compazine Inj*) 10 mg IV Q6H PRN PRN Reason: NAUSEA Last Admin: 05/12/17 05:22 Dose: 10 mg Quetiapine Fumarate (Seroquel Tab*) 50 mg PO BEDTIME PRN PRN Reason: INSOMNIA Ramipril (Altace Cap*) 5 mg PO BEDTIME [facility] Ranolazine (Ranexa (Nf)) 1,000 mg PO BID [facility] Last Admin: 05/12/17 07:38 Dose: 1,000 mg Sucralfate (Carafate*) 1 gm PO QID [facility] Last Admin: 05/12/17 07:38 Dose: 1 gm Vital Signs 05/12/17 05/12/17 03:16 07:31 Temperature 98.1 F 97.9 F Pulse Rate 70 73 Respiratory 16 20 Rate Blood Pressure 138/74 138/76 (mmHg) O2 Sat by Pulse 100 96 Oximetry Oxygen Devices in Use Now: None Appearance: Pleasant middle aged gentleman sitting up in bed in [facility]. Eyes: No Scleral Icterus Ears/Nose/Mouth/Throat: Mucous Membranes Moist Neck: Trachea Midline Respiratory: Symmetrical Chest Expansion and Respiratory Effort, Clear to Auscultation Cardiovascular: RRR - Normal S1 and S2 Abdominal: NL Sounds; No Tenderness; No Distention Extremities: No Edema Neurological: Alert and Oriented x 3, NL Muscle Strength and Tone Lines/Tubes/Other Access: Clean, Dry and Intact Peripheral IV Nutrition: Taking PO's Result Diagrams: 05/12/17 05:12 05/12/17 05:12 Assess/Plan/Problems-Billing Assessment: Mr Kaye is a 46 yo M who has h/o CAD s/p CABG in 2008, HTN, type II DM, diabetic gastroparesis, HLD, s/p recent lap ruth, who presented to the ER with c/o nausea, vomiting and coffee ground emesis. - Patient Problems (1) Nausea & vomiting Comment: - Suspect associated with his gastroparesis. - Will continue to alternate antiemetics. - Advance to full liquids as tolerated. (2) Diabetes mellitus type 2, controlled, with complications Comment: - Glucose well controlled. - Continue Lantus and Lispro SS. (3) CAD (coronary artery disease) Comment: - S/P s/p CABG and stenting. - Stable. - Continue aspirin, atorvastatin, metoprolol XL, NTG patch and ranexa. (4) DVT prophylaxis Comment: - SCDs only secondary to recent upper GI bleeding. (5) Full code status Status and Disposition: Change to inpatient as he'll require >48h to control his symptoms.
[2017-05-12] MEDS ORDERED: Nitro Patch/OINT Remove PATCH OFF SCH (12:00)
[2017-05-12] MEDS: Metoclopramide IV* 5 MG/ML 2 ML VIAL IV SCH ×3 (12:09→21:20)
[2017-05-12] MEDS ORDERED: Metoprolol Succinate XL TAB* 50 MG PO SCH (18:00)
[2017-05-12] MEDS ORDERED: oxyCODONE TAB* 5 MG TAB PO PRN (18:30)
[2017-05-12] MEDS ORDERED: Ramipril CAP* 5 MG PO SCH (21:00)
[2017-05-12] MEDS: Insulin GLARGINE(*) 1 UNITS UNIT SUBCUT SCH (21:20)
[2017-05-13] MEDS: Nitroglycerin 0.4 MG/HR PATCH* (10 MG) TRANSDERM SCH (01:10)
[2017-05-13] MEDS: fentaNYL Patch Check Q Shift 1 NOTE SCH (06:39)
[2017-05-13 08:19] VITALS: BP 119/75
[2017-05-13] MEDS: Atorvastatin* 80 MG TAB PO SCH (08:23)
[2017-05-13] MEDS: Famotidine IV* 10 MG/ML 2 ML (20 mg) IV SCH (08:24)
[2017-05-13] MEDS: Aspirin EC Low Dose* 81 MG TAB.EC PO SCH (08:24)
[2017-05-13] MEDS: Metoprolol Succinate XL TAB* 25 MG PO SCH (08:24)
[2017-05-13] MEDS: Sucralfate TAB* 1 GM PO SCH (08:24)
[2017-05-13] MEDS: Metoclopramide IV* 5 MG/ML 2 ML VIAL IV SCH (08:25)
[2017-05-13] MEDS: CMCS: Ranolazine (NF) 500 MG TAB PO SCH (08:26)
[2017-05-13] MEDS: Insulin LISPRO* 1 UNITS UNIT SUBCUT SCH (09:30)
--- NOTE | 2017-05-13 21:48 | ED ---
Santiago Flanagan Benjamin, scribed for Randall Amaya MD on 05/11/17 at 1542 . Abdominal Pain/Male - HPI Summary HPI Summary: 47yo male c/o N/V for 3 days. Pt hasnt been able to keep anything down. Pt is s /p cholecystectomy on 05/04/17. Pt was admitted in the hospital for 5 days with gall bladder disease prior to surgery, and was also admitted for 2 more days after surgery. Pt was dced on the , and pt seemed to be recovering, but since 05/08, pt started feeling nauseous and vomited for 3 days. Pt reports mild chest and abdominal discomfort when pt is vomiting. - History of Current Complaint Chief Complaint: EDAbdPain Stated Complaint: VOMITING/3DAYS Time Seen by Provider: 05/11/17 14:39 Hx Obtained From: Patient Onset/Duration: Gradual Onset, Lasting Days - 3 days, Still Present Timing: Intermittent Severity Initially: Mild Severity Currently: Mild Pain Intensity: 4 Pain Scale Used: 0-10 Numeric Location: Diffuse Radiates: No Character: Not Applicable Aggravating Factor(s): Nothing Alleviating Factor(s): Nothing Associated Signs And Symptoms: Positive: Nausea, Vomiting. Negative: Blood in Stool, Diarrhea, Penile Discharge - Allergies/Home Medications Allergies/Adverse Reactions: Allergies Allergy/AdvReac Type Severity Reaction Status Date / Time Erythromycin AdvReac Intermediate Nausea And Verified 05/11/17 13:11 Vomiting PMH/Surg Hx/FS Hx/Imm Hx Endocrine/Hematology History: Reports: Hx Diabetes - TYPE 2 Denies: Hx Thyroid Disease Cardiovascular History: Reports: Hx Angina, Hx Coronary Artery Disease, Hx Hypercholesterolemia, Hx Hypertension - CONTROLLED WITH MEDS, Hx Myocardial Infarction, Other Cardiovascular Problems/Disorders - CARDIAC STENTS. CABG. HLD Denies: Hx Congestive Heart Failure, Hx Pacemaker/ICD, Hx Valvular Heart Disease Respiratory History: Denies: Hx Asthma, Hx Chronic Obstructive Pulmonary Disease (COPD) GI History: Reports: Hx Gall Bladder Disease - Removed. 05/04/17, Hx Gastroesophageal Reflux Disease - GASTROPARESIS, Other GI Disorders - GALLSTONES Denies: Hx Ulcer History: Denies: Hx Dialysis, Hx Renal Disease Musculoskeletal History: Reports: Hx Arthritis - hips and back, Hx Back Problems , Hx Bursitis - SHOULDERS, Other Musculoskeletal History - Degenerative joint disease, chronic lower back pain. hx OF OSTEOMYLITIS Sensory History: Reports: Hx Contacts or Glasses - Glasses Denies: Hx Hearing Aid Opthamlomology History: Reports: Hx Contacts or Glasses - Glasses Neurological History: Reports: Hx Migraine - OCCASSIONALY PER PT REPORT 1-2x per year, Other Neuro Impairments/Disorders - young's palsy, PAIN CLINIC PATIENT Psychiatric History: Reports: Hx Anxiety, Hx Depression, Hx Panic Disorder - does ok with mri foot, Hx Bipolar Disorder - Cancer History Hx Chemotherapy: No - Surgical History Surgery Procedure, Year, and Place: 2008 triple heart bypass; 2007 cardiac cath no stents; 2 stents placed March 2014 at [facility] Hx Anesthesia Reactions: No - Immunization History Date of Tetanus Vaccine: up to date per pt Date of Influenza Vaccine: utd Infectious Disease History: No Infectious Disease History: Reports: History Other Infectious Disease - spinal meningitis Denies: Hx Clostridium Difficile, Hx Hepatitis, Hx Human Immunodeficiency Virus (HIV), Hx of Known/Suspected MRSA, Hx Shingles, Hx Tuberculosis, Hx Known/ Suspected VRE, Hx Known/Suspected VRSA, Traveled Outside the [place] in Last 30 Days - Family History Known Family History: Positive: Cardiac Disease - [place] - mother & father, Hypertension, Diabetes - Social History Occupation: Unemployed Lives: With Family Alcohol Use: None Alcohol Amount: 1-2 beers per week Hx Substance Use: No Substance Use Type: Reports: Marijuana Substance Use Comment - Amount & Last Used: 2 times per day Hx Tobacco Use: No Smoking Status (MU): Former Smoker Type: Cigarettes Amount Used/How Often: 3 packs per day for 2 years, 25 years ago Length of Time of Smoking/Using Tobacco: 4 years Have You Smoked in the Last Year: No Review of Systems Constitutional: Negative Negative: Fever, Chills Eyes: Negative ENT: Negative Cardiovascular: Negative Negative: Chest Pain Respiratory: Negative Positive: Vomiting, Nausea. Negative: Abdominal Pain, Diarrhea Genitourinary: Negative Musculoskeletal: Negative Skin: Negative Neurological: Negative Psychological: Normal All Other Systems Reviewed And Are Negative: Yes Physical Exam Triage Information Reviewed: Yes Vital Signs On Initial Exam: Initial Vitals Temp Pulse Resp BP Pulse Ox 96.6 F 95 20 145/108 100 05/11/17 13:11 05/11/17 13:11 05/11/17 13:11 05/11/17 13:11 05/11/17 13:11 Vital Signs Reviewed: Yes Appearance: Positive: Well-Nourished, Ill-Appearing - moderate, Pain Distress - mild Skin: Positive: Warm, Skin Color Reflects Adequate Perfusion, Dry, Other - all incisions are clean and dry Eyes: Positive: Normal ENT: Positive: Normal ENT inspection Neck: Positive: Supple, Nontender Respiratory/Lung Sounds: Positive: Clear to Auscultation, Breath Sounds Present Cardiovascular: Positive: RRR, Pulses are Symmetrical in both Upper and Lower Extremities Abdomen Description: Positive: Soft. Negative: Nontender - epigastric tenderness Bowel Sounds: Positive: Present Musculoskeletal: Positive: Strength/ROM Intact Neurological: Positive: Sensory/Motor Intact, Alert, Oriented to Person Place, Time Psychiatric: Positive: Affect/Mood Appropriate - [place] Coma Scale Coma Scale Total: 15 Diagnostics - Vital Signs Vital Signs Temp Pulse Resp BP Pulse Ox 05/11/17 14:15 97.4 F 79 18 147/84 99 05/11/17 13:11 96.6 F 95 20 145/108 100 - Laboratory Lab Results: Lab Results 05/11/17 05/11/17 05/11/17 Range/Units 14:35 14:35 14:35 WBC 9.5 (3.5-10.8) 10^3/ul RBC 4.76 (4.0-5.4) 10^6/ul Hgb 14.1 (14.0-18.0) g/dl Hct 41 L (42-52) % MCV 85 (80-94) fL MCH 30 (27-31) pg MCHC 35 (31-36) g/dl RDW 13 (10.5-15) % Plt Count 212 (150-450) 10^3/ul MPV 9 (7.4-10.4) um3 Neut % (Auto) 71.0 (38-83) % Lymph % (Auto) 19.4 L (25-47) % Franklin % (Auto) 8.5 (1-9) % Eos % (Auto) 0.5 (0-6) % Baso % (Auto) 0.6 (0-2) % Absolute Neuts (auto) 6.8 (1.5-7.7) 10^3/ul Absolute Lymphs (auto) 1.8 (1.0-4.8) 10^3/ul Absolute Monos (auto) 0.8 (0-0.8) 10^3/ul Absolute Eos (auto) 0 (0-0.6) 10^3/ul Absolute Basos (auto) 0.1 (0-0.2) 10^3/ul Absolute Nucleated RBC 0.01 10^3/ul Nucleated RBC % 0.1 INR (Anticoag Therapy) 1.02 (0.89-1.11) APTT 33.3 (26.0-36.3) seconds Sodium 134 (133-145) mmol/L Potassium 3.5 (3.5-5.0) mmol/L Chloride 98 L (101-111) mmol/L Carbon Dioxide 25 (22-32) mmol/L Anion Gap 11 (2-11) mmol/L BUN 9 (6-24) mg/dL Creatinine 0.85 (0.67-1.17) mg/dL Est GFR ( Amer) 123.7 (>60) Est GFR (Non-Af Amer) 96.2 (>60) BUN/Creatinine Ratio 10.6 (8-20) Glucose 288 H (70-100) mg/dL Lactic Acid (0.5-2.0) mmol/L Calcium 9.8 (8.6-10.3) mg/dL Total Bilirubin 0.70 (0.2-1.0) mg/dL AST 15 (13-39) U/L ALT 17 (7-52) U/L Alkaline Phosphatase 76 (34-104) U/L C-Reactive Protein 5.70 H (< 5.00) mg/L Total Protein 7.8 (6.4-8.9) g/dL Albumin 4.4 (3.2-5.2) g/dL Globulin 3.4 (2-4) g/dL Albumin/Globulin Ratio 1.3 (1-3) Lipase < 10 L (11.0-82.0) U/L 05/11/17 Range/Units 14:35 WBC (3.5-10.8) 10^3/ul RBC (4.0-5.4) 10^6/ul Hgb (14.0-18.0) g/dl Hct (42-52) % MCV (80-94) fL MCH (27-31) pg MCHC (31-36) g/dl RDW (10.5-15) % Plt Count (150-450) 10^3/ul MPV (7.4-10.4) um3 Neut % (Auto) (38-83) % Lymph % (Auto) (25-47) % Franklin % (Auto) (1-9) % Eos % (Auto) (0-6) % Baso % (Auto) (0-2) % Absolute Neuts (auto) (1.5-7.7) 10^3/ul Absolute Lymphs (auto) (1.0-4.8) 10^3/ul Absolute Monos (auto) (0-0.8) 10^3/ul Absolute Eos (auto) (0-0.6) 10^3/ul Absolute Basos (auto) (0-0.2) 10^3/ul Absolute Nucleated RBC 10^3/ul Nucleated RBC % INR (Anticoag Therapy) (0.89-1.11) APTT (26.0-36.3) seconds Sodium (133-145) mmol/L Potassium (3.5-5.0) mmol/L Chloride (101-111) mmol/L Carbon Dioxide (22-32) mmol/L Anion Gap (2-11) mmol/L BUN (6-24) mg/dL Creatinine (0.67-1.17) mg/dL Est GFR ( Amer) (>60) Est GFR (Non-Af Amer) (>60) BUN/Creatinine Ratio (8-20) Glucose (70-100) mg/dL Lactic Acid 2.6 H* (0.5-2.0) mmol/L Calcium (8.6-10.3) mg/dL Total Bilirubin (0.2-1.0) mg/dL AST (13-39) U/L ALT (7-52) U/L Alkaline Phosphatase (34-104) U/L C-Reactive Protein (< 5.00) mg/L Total Protein (6.4-8.9) g/dL Albumin (3.2-5.2) g/dL Globulin (2-4) g/dL Albumin/Globulin Ratio (1-3) Lipase (11.0-82.0) U/L Result Diagrams: 05/12/17 05:12 05/12/17 05:12 Lab Statement: Any lab studies that have been ordered have been reviewed, and results considered in the medical decision making process. - CT CT A/P W CT Interpretation: Positive (See Comments) - IMPRESSION: STATUS POST CHOLECYSTECTOMY. FATTY INFILTRATION OF THE LIVER. CT Interpretation Completed By: Radiologist - ED physician has reviewed this radiology report and agrees. Abdominal Pain Fem Course/Dx - Course Course Of Treatment: Reviewed pts medication and allergy lists. High blood pressure noted. Discussed with Dr. Kunz (Hospitalist) at 1542. ADMIT HOSPITALIST - Diagnoses Provider Diagnoses: Intractable vomiting Discharge - Discharge Plan Condition: Stable Disposition: ADMITTED TO [facility] The documentation as recorded by the Santiago shore Benjamin accurately reflects the service I personally performed and the decisions made by me, Randall Amaya MD.
--- NOTE | 2017-05-14 10:30 | DS ---
CC: Dr. Saunders. DISCHARGE SUMMARY: DATE OF ADMISSION: 05/11/17 DATE OF DISCHARGE: 05/13/17 PRIMARY CARE PROVIDER: Dr. Saunders. DISCHARGE DIAGNOSES: 1. Recurrent nausea and vomiting secondary to diabetic gastroparesis. 2. Mild hypokalemia. 3. Mild lactic acidosis. SECONDARY DIAGNOSES: 1. Hypertension. 2. Coronary artery disease, status post percutaneous coronary intervention and coronary artery bypa ss grafting. 3. Type 2 diabetes. 4. Chronic pain. 5. Hyperlipidemia. 6. Status post recent laparoscopic cholecystectomy. MEDICATION LIST: 1. Aspirin 81 mg p.o. daily. 2. Atorvastatin 80 mg p.o. daily. 3. Colace 100 mg p.o. daily as needed for constipation. 4. Fentanyl patch 50 mcg topical q. 72 hours. 5. Insulin aspart sliding scale 3 times a day as you are doing before. 6. Lantus 30 units subcutaneously every morning if sugars are greater than 200. 7. Metoclopramide 10 mg p.o. a.c., h.s. 8. Metoprolol succinate 25 mg p.o. q.a.m. and 50 mg p.o. q. p.m. 9. Nitroglycerin patch 0.4 mg an hour topical daily remove at 2100. 10. Ondansetron 4 mg p.o. t.i.d. as needed for nausea. 11. Pantoprazole 40 mg p.o. q.a.m. 12. Potassium chloride 20 mEq p.o. q. a.m. 13. Seroquel 50 mg p.o. at bedtime as needed for insomnia. 14. Ramipril 5 mg p.o. at bedtime. 15. Ranolazine 1000 mg p.o. b.i.d. 16. Sucralfate 1 g p.o. q.i.d. ALLERGIES: With ERYTHROMYCIN, the patient experience nausea and vomiting. HOSPITAL COURSE: Mr. Kaye is a 47-year-old male with past medical history as stated above that presented to the emergency room with complaints of nausea and vomiting for 3 days prior to admissio n. He underwent a laparoscopic cholecystectomy on 05/04 and he was actually feeling well after disc harge until this episode started. For more details about his presentation, I refer you to his histo ry and physical. In the emergency room, the patient underwent a CT of the abdomen and pelvis with IV and p.o. contras t and it showed status post cholecystectomy, fatty infiltration of the liver but no other abnormalit ies were reported. The patient was admitted for further medical management. He received symptomatic treatment with pro gressive improvement of his symptoms. I believe this episode of nausea and vomiting was probably associated with his diabetic gastroparesi s. The patient was able to tolerate a solid diet and he was thought to be stable to be discharged home today to follow up with primary care provider next week. He was also seen briefly by surgery to lucy abarca his surgical esperanza removed. PHYSICAL EXAMINATION: Vital Signs: Temperature 97.6, heart rate of 58, respiratory rate is 18, oxy gen saturation is 100% on room air, blood pressure is 119/75. General: The patient is a pleasant, middle-aged male, sitting up in bed, in no acute distress. CVS: Normal S1, S2. Regular rate and r hythm. Chest: Breath sounds present bilaterally with no added sounds. Abdomen: Soft, nontender, n ondistended. Bowel sounds are present. Surgical incision was clean and dry. Neuro: He is alert, a wake, and oriented x3. Able to move all 4 extremities. DIET: Heart healthy consistent carb diet. ACTIVITIES: As tolerated. DISPOSITION: To home. STATUS WHILE IN THE HOSPITAL: Inpatient. Please keep in mind this is a summarized version of this patient's hospital stay. If you need more i nformation, please feel free to call me at or please obtain the full medical records. TIME SPENT: Approximately 45 minutes were spent to complete this discharge. [id number]/[facility] #: [id number]
== END 2017-05-13 11:55 | disposition home or self-care (01) | DRG 74 ==
LOC: ED 13:08 → MED 19:47 → OBSVTOIN 05-12 09:37
PROVIDERS: ADMIT Hospitalist; ATTEND Internal Medicine
DX: E11.43 Type 2 diabetes mellitus with diabetic autonomic (poly)neuropathy (principal); E87.2 Acidosis; K76.0 Fatty (change of) liver, not elsewhere classified; K31.84 Gastroparesis; E87.6 Hypokalemia; I10 Essential (primary) hypertension; I25.10 Atherosclerotic heart disease of native coronary artery without angina pectoris; Z95.5 Presence of coronary angioplasty implant and graft; Z95.1 Presence of aortocoronary bypass graft; G89.29 Other chronic pain; E78.5 Hyperlipidemia, unspecified; E66.3 Overweight; E78.00 Pure hypercholesterolemia, unspecified; K21.9 Gastro-esophageal reflux disease without esophagitis; M13.89 Other specified arthritis, multiple sites; M54.5 Low back pain; G43.909 Migraine, unspecified, not intractable, without status migrainosus; F32.9 Major depressive disorder, single episode, unspecified; F41.0 Panic disorder [episodic paroxysmal anxiety]; Z90.49 Acquired absence of other specified parts of digestive tract; Z79.82 Long term (current) use of aspirin; Z79.4 Long term (current) use of insulin; Z88.8 Allergy status to other drugs, medicaments and biological substances; Z88.1 Allergy status to other antibiotic agents; Z87.891 Personal history of nicotine dependence; Z82.49 Family history of ischemic heart disease and other diseases of the circulatory system; Z83.3 Family history of diabetes mellitus; I25.2 Old myocardial infarction; Z56.0 Unemployment, unspecified; Z68.29 Body mass index [BMI] 29.0-29.9, adult
CPT/HCPCS: 36415; 74177; 80048; 80053; 81003; 83605; 83690; 83735; 85025; 85027; 85610; 85730; 86140; 93005; 94760; A9270-GY; G0378; J0780; J2060; J2405; J2765; Q9967

== ENCOUNTER 2017-05-19 06:31 | Observation (INO) | payer MEDICARE ==
[2017-05-19] MEDS ORDERED: Lidocaine 2% VISCOUS* 15 ML UDC PO ONE (08:03)
[2017-05-19] MEDS ORDERED: Al Hydrox/Mg Hydrox/Simet LIQ* 30 ML UDC PO ONE (08:03)
[2017-05-19] MEDS ORDERED: Metoclopramide IV* 5 MG/ML 2 ML VIAL IV SLOW PU ONE (08:03)
[2017-05-19] MEDS ORDERED: Ondansetron INJ* 2 MG/ML VIAL IV ONE (08:03)
[2017-05-19] MEDS ORDERED: NS 0.9% 1000 ML* 1,000 ML IV ONE (08:03)
[2017-05-19 08:29] LABS: Hematocrit 42 % (42-52); Hemoglobin 14.6 g/dl (14.0-18.0); Mean Corpuscular HGB Conc 35 g/dl (31-36); Mean Corpuscular Hemoglobin 30 pg (27-31); Mean Corpuscular Volume 85 fL (80-94); Mean Platelet Volume 9 um3 (7.4-10.4); Red Blood Count 4.87 10^6/ul (4.0-5.4); Red Cell Distribution Width 13 % (10.5-15); White Blood Count 11.7 10^3/ul (3.5-10.8)
[2017-05-19 08:52] LABS: Urine Bilirubin Negative (Negative); Urine Glucose 1+(50 mg/dL) (Negative); Urine Nitrite Negative (Negative)
[2017-05-19 08:52] LABS: ALT 20 U/L (7-52); Alkaline Phosphatase 78 U/L (34-104); BUN/Creatinine Ratio 10.3 (8-20); Blood Urea Nitrogen 8 mg/dL (6-24); CO2 Carbon Dioxide 25 mmol/L (22-32); Calcium 10.4 mg/dL (8.6-10.3); Chloride 99 mmol/L (101-111); EGFR African American 136.6 (>60); EGFR Non-African American 106.2 (>60); Globulin 3.6 g/dL (2-4); Glucose 195 mg/dL (70-100); Lipase < 10 U/L (11.0-82.0); Sodium 137 mmol/L (133-145); Total Protein 8.6 g/dL (6.4-8.9)
[2017-05-19 08:53] LABS: Troponin I 0.01 ng/mL (<0.04)
[2017-05-19 09:06] LABS: Anion Gap 13 mmol/L (2-11)
[2017-05-19 09:14] LABS: C Reactive Protein 3.03 mg/L (< 5.00)
[2017-05-19] MEDS ORDERED: Docusate CAP* 100 MG PO SCH (11:00)
[2017-05-19] MEDS ORDERED: Ondansetron INJ* 2 MG/ML VIAL IV PRN (11:15)
[2017-05-19] MEDS ORDERED: Bisacodyl SUPP* 10 MG SUPP PR ONE (11:16)
[2017-05-19] MEDS ORDERED: fentaNYL PATCH 50 MCG/HR TRANSDERM SCH (12:00)
[2017-05-19] MEDS: Ondansetron INJ* 2 MG/ML VIAL IV PRN ×2 (12:34→18:01)
[2017-05-19] MEDS: NS 0.9% 1000 ML* 1,000 ML IV SCH ×2 (12:40→20:45)
[2017-05-19] MEDS: Aspirin EC Low Dose* 81 MG TAB.EC PO SCH (13:25)
[2017-05-19] MEDS: Metoprolol Succinate XL TAB* 25 MG PO SCH ×2 (13:25→17:59)
[2017-05-19] MEDS: Insulin LISPRO* 1 UNITS UNIT SUBCUT SCH ×3 (13:26→22:07)
[2017-05-19] MEDS: Senna TAB PO SCH (13:26)
[2017-05-19] MEDS: Docusate CAP* 100 MG PO SCH (13:26)
--- NOTE | 2017-05-19 13:45 | HP ---
HISTORY AND PHYSICAL: DATE OF ADMISSION: 05/19/17 ADMITTING DOCTOR: Az Jovel MD PRIMARY CARE DOCTOR: Akosua Saunders MD CHIEF COMPLAINT: Nausea and vomiting x3 days. HISTORY OF PRESENT ILLNESS: Mr. Kaye is a 47-year-old male with past medical history of CAD, status post CABG in 2008, diabetes mellitus type 2 uncontrolled(A1c 9.5 this month), hypertension, likely undiagnosed depression, hyperlipidemia, cholelithiasis, status post recent lap cholecystectomy on . The patient presents with nausea and vomiting x3 days with inability to keep down any oral intake including his medications. Of note, the patient was recently discharged with the same symptoms after an observation stay May 12 -. During that evaluation, he had a CT abdomen and pelvis with IV and p.o. contrast, which showed some fatty infiltration of the liver, but no other abnormalities besides status post cholecystectomy changes. He had been doing well, tolerating p.o. intake on the last day of observation stay and was doing okay at home until the last 2 to 3 days when nausea and vomiting became intractable again. Of note, he has had 2 plus years of this nausea and vomiting. He did see a GI doctor at [facility], but to his knowledge does not have a confirmed diagnosis about the cause of his N/V. Denies any evaluation with EGD or gastric emptying study to his knowledge. Of note, he does suffer from chronic degenerative disk disease and is on a fentanyl patch 50 mcg per hour in addition to oxycodone 5 mg every 4 hours as needed for pain, although he does not take that as frequently. He has taken Reglan and Zofran for the last 2 years with only intermittent control of his nausea and vomiting. He also takes marijuana daily. He does attest to early satiety and bloating over these last 2 years and does attribute increased episodes of nausea and vomiting status post meals, but this has not changed or improved since his lap ruth on the 04 of May. He takes a Colace tab daily and has only had 1 bowel movement since his operation 15 days ago. He denies any acute abdominal pain, but does have some discomfort during the vomiting episodes as well as in his chest that resolves after emesis has stopped. Denies fevers. Does attest to some occasional chills, occasional shortness of breath. Denies other chest pressure, but does have baseline shortness of breath if he walks more than 75 meters on flat level ground. Denies paroxysmal nocturnal dyspnea. Does use 2 pillows nightly for sleep, but denies any shortness of breath at that time. Denies lower extremity edema or increase in weight. He has lost approximately 80 pounds since his gastric bypass surgery in 2008. In the ED, the patient was treated with some IV Reglan and was able to tolerate some crackers. He has slight lactic acidosis of 2.2 and anion gap of 13. His blood sugar was elevated to 195. PAST MEDICAL HISTORY: 1. CAD, status post CABG in 2008. 2. Diabetes mellitus type 2 with suspected complication of diabetes gastroparesis, though not confirmed. 3. Hyperlipidemia. 4. Hypertension. 5. Depression, likely though not clear previously diagnosed 6. Sleep disturbance. PAST SURGICAL HISTORY: 1. CABG. 2. Cholecystectomy, 05/04/17. OUTPATIENT MEDICATIONS: 1. Lantus 30 units at bedtime. 2. Pantoprazole 40 mg daily. 3. Zofran 4 mg t.i.d. p.r.n. 4. Reglan 10 mg p.o. q.a.c. 5. Lipitor 20 mg daily. 6. Aspirin 81 mg daily. 7. Metoprolol succinate XL 25 mg p.o. q.a.m. and 50 mg p.o. q.p.m. 8. Ramipril 5 mg p.o. q.h.s. 9. Seroquel 50 mg p.o. q.h.s. p.r.n. for insomnia. 10. Humalog with meals (takes approximately 3 days a week). 11. Ranexa 1000 mg p.o. b.i.d. 12. Colace 100 mg p.o. daily. 13. Fentanyl patch 50 mcg per hour transdermal patch q.72 hours. ALLERGIES: AZITHROMYCIN adverse reaction nausea, vomiting. FAMILY HISTORY: Positive for congestive heart failure in both mother and father , diabetes, hypertension, and hyperlipidemia. SOCIAL HISTORY: Former smoker, no alcohol. Daily marijuana use. Lives with his . Currently full code. REVIEW OF SYSTEMS: As above as stated in the HPI, otherwise negative. PHYSICAL EXAMINATION GENERAL: Pleasant gentleman with some depressed affect, not currently vomiting. VITAL SIGNS: blood pressure of 146/79, heart rate 61, satting 97% on room air, with temperature of 97 degrees Fahrenheit. HEENT: Atraumatic and normocephalic. No scleral icterus. No cervical lymphadenopathy. Mucous membranes are moist. Oropharynx clear. NECK: Soft, non-rigid. PULMONARY: Clear to auscultation bilaterally. No wheezing, rales, or rhonchi. CARDIOVASCULAR: Regular rate and rhythm. Normal S1 and S2. No murmurs, rubs, or gallops. ABDOMEN: Soft, nondistended, obese, slight tenderness epigastrically. No hepatosplenomegaly. Laparoscopic surgical scar is well healed. No drainage or erythema. EXTREMITIES: Warm and well-perfused. No peripheral edema. NEUROLOGIC: Cranial nerves II through XII grossly intact. STRENGTH: 5/5 in upper and lower extremities. Sensation intact. SKIN: No rashes. PSYCHIATRIC: Slightly depressed mood, tearing on occasion when asking about code status. Does attest to being somewhat ambivalent about whether he lives or dies. Has no active thoughts of hurting himself or others. Attests to decreased concentration. No hobbies. Poor appetite since nausea and vomiting started. LAB RESULTS: Include CBC: White count 11.7, hemoglobin 42, hematocrit 14.6, platelets 252. Sodium 137, chloride 99, BUN 8, bicarb 25, creatinine 0.78, glucose 195, lactic acid 2.2, calcium 10.5, albumin 5.0, lipase less than 10. UA - 1+ ketones, 1+ glucose. EKG showed normal sinus rhythm, evidence of prior anterior infarct with Q waves in V1 through V3. Some repolarization abnormalities in V1 thorough V3. QTc 432. ST depression is 1 mm in aVL and I. ASSESSMENT AND PLAN: 1. This is a 47-year-old male with a history of CAD, CABG, and uncontrolled diabetes mellitus with a 2-year history of nausea and vomiting with early satiety that has been intractable for the last 3 days and unchanged despite recent cholecystectomy surgery on the 04 of May. He has had only what is described as a limited GI evaluation. We will admit him to the hospital for IV fluids, IV antiemetics including Zofran and Reglan, and we will order a nuclear medicine emptying study. Consider GI evaluation depending on the results. We will monitor his EKG daily to monitor his QTc giving his use of Reglan, Zofran, and Seroquel. Of note, it is currently within normal limits at 432. He did express some improvement of symptoms with IV medications, is able to tolerate some crackers but was noticed to be dry heaving later on in this evaluation. IV fluids will be continued. Sliding scale insulin and half of his home dose of Lantus will be continued at 15U qhs. He will need to have a closer regulation of his blood sugars as an outpatient if this is indeed diabetic gastroparesis and an underlying complaint of depression heretofore not noted in the chart may be underlying his degree of compliance with medication such as insulin and glucose control. He is currently on Seroquel, but may benefit from seeing a psychiatrist in the outpatient environment. Of note, he may be experiencing some nausea related to the chronic opioid use which would ideally be titrated down in outpatient setting. 2, CAD status post CABG, he will continue his RILEY inhibitor, ramipril 5 mg daily , and metoprolol succinate 25 mg p.o. a.m. and 50 mg p.o. p.m. Hopefully with antiemetic control, he can tolerate these medications. He will also be continued on Lipitor 20 mg and aspirin 81 mg. 3. Chronic back pain. He will be continued on his fentanyl patch 50 mcg per hour q.72 hours. 4, Constipation which may be related to poor p.o. intake, but should be addressed. We will change his home Colace to Mónica-Colace here in the hospital. For increased pro= motility, add MiraLAX and give a Dulcolax suppository. I do not believe he has evidence of a small bowel obstruction at this time, but serial abdominal exams will be undertaken. We will consider getting an abdominal x- ray to evaluate for obstruction if symptoms do not improve or no BM. DVT prophylaxis with heparin 5000 t.i.d. Code status is full. His is his proxy medical decision maker. Disposition is observation status. [id number]/[facility] #: [id number] HENRY
[2017-05-19] MEDS: Metoclopramide IV* 5 MG/ML 2 ML VIAL IV PRN ×2 (15:08→21:06)
[2017-05-19] MEDS ORDERED: Famotidine IV* 10 MG/ML 2 ML (20 mg) IV SLOW PU ONE (15:15)
[2017-05-19] MEDS: Atorvastatin* 20 MG TAB PO SCH (17:59)
[2017-05-19] MEDS: Insulin GLARGINE(*) 1 UNITS UNIT SUBCUT SCH (18:00)
[2017-05-19] MEDS ORDERED: QUEtiapine TAB* 25 MG PO PRN (20:00)
[2017-05-19] MEDS: Polyethylene Glycol 3350* 17 GM PACKET PO SCH (22:07)
[2017-05-19] MEDS: Ramipril CAP* 5 MG PO SCH (22:13)
[2017-05-19] MEDS: CMCS Ranolazine (NF) 500 MG TAB PO SCH (22:13)
[2017-05-20] MEDS: NS 0.9% 1000 ML* 1,000 ML IV SCH (04:39)
[2017-05-20] MEDS: fentaNYL Patch Check Q Shift 1 NOTE SCH ×2 (06:55→18:31)
[2017-05-20] MEDS: Insulin LISPRO* 1 UNITS UNIT SUBCUT SCH ×4 (07:40→20:23)
--- NOTE | 2017-05-20 10:15 | RAD ---
Indication: Severe abdominal pain, nausea, vomiting for several months. Diabetic. Comparison: May 11, 2017 CT. Technique: The patient was administered a solid meal of oatmeal admixed with 1.020 mCi of Tc-99m sulfur colloid. Images of the upper abdomen were obtained and percent of contents emptied from the stomach calculated. Report: The gastric emptying half-time could not be calculated due to ascending curve. Normal GE T-1/2 is less than 90 minutes. IMPRESSION: Abnormal exam demonstrating documented gastroparesis.
[2017-05-20] MEDS: Docusate CAP* 100 MG PO SCH (10:35)
[2017-05-20] MEDS: Metoprolol Succinate XL TAB* 25 MG PO SCH ×2 (10:35→17:00)
[2017-05-20] MEDS: Atorvastatin* 20 MG TAB PO SCH (10:35)
[2017-05-20] MEDS: Aspirin EC Low Dose* 81 MG TAB.EC PO SCH (10:35)
[2017-05-20] MEDS: Senna TAB PO SCH (10:38)
[2017-05-20] MEDS: Polyethylene Glycol 3350* 17 GM PACKET PO SCH ×2 (10:38→20:38)
[2017-05-20] MEDS: CMCS Ranolazine (NF) 500 MG TAB PO SCH ×2 (10:39→20:33)
[2017-05-20] MEDS ORDERED: Pantoprazole IV* 40 MG IV ONE (11:20)
[2017-05-20] MEDS: Metoclopramide TAB* 10 MG PO SCH ×3 (12:45→20:33)
[2017-05-20] MEDS: Sucralfate TAB* 1 GM PO SCH ×3 (12:45→20:33)
--- NOTE | 2017-05-20 12:52 | PN ---
Subjective Date of Service: 05/20/17 Interval History: HOSPITALIST PROGRESS NOTE Patient seen and examined at bedside. He feels better today. Tolerating diet today, with no further nausea and vomiting. States he started to have N/V 2 days prior to admission. Was compliant with his meds and did not eat anything different, but symptoms recurred anyway. Family History: Unchanged from Admission Social History: Unchanged from Admission Past Medical History: Unchanged from Admission Objective Active Medications: Aspirin (Aspirin Ec Low Dose*) 81 mg PO QAM [facility] Last Admin: 05/20/17 10:35 Dose: 81 mg Atorvastatin Calcium (Lipitor*) 20 mg PO QAM [facility] Last Admin: 05/20/17 10:35 Dose: 20 mg Docusate Sodium (Colace Cap*) 100 mg PO DAILY [facility] Last Admin: 05/20/17 10:35 Dose: 100 mg Fentanyl (Duragesic Patch 50 Mcg/Hr*) 50 mcg TRANSDERM Q72H [facility] Last Admin: 05/19/17 12:44 Dose: 50 mcg Insulin Glargine (Lantus(*)) 15 units SUBCUT Q24H [facility] Last Admin: 05/19/17 18:00 Dose: 15 unit Insulin Human Lispro (Humalog*) 0 units SUBCUT [facility] PRN Reason: Protocol Last Admin: 05/20/17 07:40 Dose: Not Given Metoclopramide HCl (Reglan Tab*) 10 mg PO ACHS [facility] Metoprolol Succinate (Toprol Xl Tab*) 25 mg PO QAM [facility] Last Admin: 05/20/17 10:35 Dose: 25 mg Metoprolol Succinate (Toprol Xl Tab*) 50 mg PO QPM [facility] Last Admin: 05/19/17 17:59 Dose: Not Given Omeprazole (Prilosec Cap*) 20 mg PO 0730 [facility] Ondansetron HCl (Zofran Inj*) 8 mg IV Q6H PRN PRN Reason: NAUSEA Last Admin: 05/19/17 18:01 Dose: 8 mg Pharmacy Profile Note (Fentanyl Patch Check Q Shift) 0 note N/A 0700,1900 [facility] Last Admin: 05/20/17 06:55 Dose: 1 note Polyethylene Glycol/Electrolytes (Miralax*) 17 gm PO 0800,2100 [facility] Last Admin: 05/20/17 10:38 Dose: Not Given Quetiapine Fumarate (Seroquel Tab*) 50 mg PO BEDTIME PRN PRN Reason: INSOMNIA Last Admin: 05/19/17 23:29 Dose: 50 mg Ramipril (Altace Cap*) 5 mg PO BEDTIME [facility] Last Admin: 05/19/17 22:13 Dose: 5 mg Ranolazine (Ranexa (Nf)) 1,000 mg PO BID [facility] Last Admin: 05/20/17 10:39 Dose: 1,000 mg Senna (Senokot Tab*) 1 tab PO DAILY [facility] Last Admin: 05/20/17 10:38 Dose: Not Given Sucralfate (Carafate*) 1 gm PO ACHS [facility] Vital Signs 05/20/17 11:35 Temperature 97.6 F Pulse Rate 68 Respiratory 15 Rate Blood Pressure 141/85 (mmHg) O2 Sat by Pulse 100 Oximetry Oxygen Devices in Use Now: None Appearance: Pleasant middle aged male sitting up in bed in NAD. Eyes: No Scleral Icterus Ears/Nose/Mouth/Throat: Mucous Membranes Moist Neck: Trachea Midline Respiratory: Symmetrical Chest Expansion and Respiratory Effort, Clear to Auscultation Cardiovascular: RRR - Normal S1 and S2 Abdominal: NL Sounds; No Tenderness; No Distention Extremities: No Edema Neurological: Alert and Oriented x 3, NL Muscle Strength and Tone Lines/Tubes/Other Access: Clean, Dry and Intact Peripheral IV Nutrition: Taking PO's Result Diagrams: 05/19/17 08:15 05/19/17 10:16 Assess/Plan/Problems-Billing Assessment: Mr Kaye is a 46 yo M who has h/o CAD s/p CABG in 2008, HTN, type II DM, diabetic gastroparesis, HLD, s/p recent lap ruth, who presented to the ER with c/o recurrent nausea and vomiting. - Patient Problems (1) Nausea & vomiting Comment: - Associated with gastroparesis - [place] gastric emptying study confirms it. - Fourth admission since end march. - Was on Carafate, PPI, scheduled Reglan ACHS, compliant with diet, but developed symptoms anyway. Will request GI input - patient had N/V with erythromycin in the past. Is there any other medications we could try? (2) CAD (coronary artery disease) Comment: - S/P s/p CABG and stenting. - Stable. - Continue aspirin, atorvastatin, metoprolol XL, NTG patch and ranexa. (3) Diabetes mellitus type 2, controlled, with complications Comment: - Glucose is controlled. - Continue Lantus and Lispro SS. (4) DVT prophylaxis Comment: - SQ heparin. (5) Full code status Status and Disposition: Inpatient for symptomatic treatment of gastroparesis.
[2017-05-20] MEDS: Heparin VIAL(*) 5000 UNITS/ML VIAL (FIVE THOUSAND) SUBCUT SCH ×2 (14:02→20:33)
[2017-05-20] MEDS: Insulin GLARGINE(*) 1 UNITS UNIT SUBCUT SCH (16:59)
[2017-05-20] MEDS: Ramipril CAP* 5 MG PO SCH (20:33)
--- NOTE | 2017-05-21 02:17 | CONS ---
GASTROENTEROLOGY CONSULTATION DATE OF CONSULT: 05/20/17 CONSULTING PHYSICIAN: Dr. Lawrence Klein. REASON FOR CONSULTATION: Recurring nausea and vomiting with at least four admissions this summer and also laparoscopic cholecystectomy just two weeks ago. HISTORY: This 47-year-old diabetic has been on insulin for over 10 years. He has had nausea and vomiting admissions here since about July 2014. He reportedly had an outpatient consult with the [place] [employer] operator, but had not had any diagnostic studies done. On this admission, he had a nuclear medicine scan with oatmeal which was grossly abnormal. The length of time was not specified in the report. He does take marijuana for back pain. He is followed by the pain clinic here and has a fentanyl patch. PAST MEDICAL HISTORY: 1. Obesity. 2. Diabetes - on insulin, 10 years. His A1c tends to run in the 's, though in February 2014 it was 13.3. He was followed at the [facility] for a while, but says it has been too inconvenient to return there. 3. Status post cholecystectomy. 4. History of coronary artery disease. 5. Status post coronary artery bypass 2008. 6. Hypertension. MEDICATIONS: Aspirin 81; metoclopramide 10 mg q.i.d.; fentanyl patch 50 mcg per hour; pantoprazole 40; other meds of GI relevance. SOCIAL HISTORY: He is on disability. He is . REVIEW OF SYSTEMS: He states he has not been suffering from acid indigestion or heartburn throughout his life. He has had no other surgery besides the bypass and the cholecystectomy. There is no history of hepatitis, pancreatitis, GI bleeding, ulcer disease, hernia surgery, peripheral vascular surgery, psoriasis, seizures or [employer] P[employer]ER disorders. EXAM: He is a substantially overweight man with numerous tattoos including one over this left chest depicting his father. He was initially interviewed walking in the [place] where he was doing fine. He had had three meals today including dinner. HEENT exam shows no icterus. He has no adenopathy. His lungs are clear. Heart sounds are regular. The abdomen shows recent lap ruth trocar wounds. There are no hernias. Bowel sounds are diminished, but present. The abdomen is soft. There was no edema. LABS: On admission, hemoglobin 14.6 consistent with prior results. MCV 85. Platelets 252. Creatinine 0.78, BUN 8, magnesium 2.0 (eight days ago). LFTs normal. Albumin 5.0 and urinalysis shows no protein or blood. Specific gravity 1.019. IMPRESSION: Gastroparesis is suspected on clinical grounds and it seems to be confirmed by the nuclear medicine study. At some point, an upper endoscopy at 10 or 11 am would be reasonable. He is not particularly prone to hypoglycemia. More aggressive efforts to get his A1c down would probably be the highest yield avenue to pursue here. He could return to the [facility] and hopefully get an insulin pump and get his A1c down. The advantage is that they might have access to domperidone or other protocol medications should this initial step be insufficient. He is not likely to be enthusiastic about tapering of marijuana or some of his chronic pain medications, though they are often associated with nausea. It is notable that his albumin is fine and there is no sign of renal disease. [id number]/[facility] #: [id number] MTDD
[2017-05-21] MEDS: Heparin VIAL(*) 5000 UNITS/ML VIAL (FIVE THOUSAND) SUBCUT SCH (05:19)
[2017-05-21] MEDS: fentaNYL Patch Check Q Shift 1 NOTE SCH (06:56)
[2017-05-21] MEDS ORDERED: Omeprazole CAP* 20 MG PO SCH (07:30)
[2017-05-21 08:31] VITALS: BP 104/64
[2017-05-21] MEDS: Metoclopramide TAB* 10 MG PO SCH ×2 (08:39→15:34)
[2017-05-21] MEDS: CMCS Ranolazine (NF) 500 MG TAB PO SCH (08:39)
[2017-05-21] MEDS: Aspirin EC Low Dose* 81 MG TAB.EC PO SCH (08:39)
[2017-05-21] MEDS: Atorvastatin* 20 MG TAB PO SCH (08:39)
[2017-05-21] MEDS: Sucralfate TAB* 1 GM PO SCH ×2 (08:40→15:35)
[2017-05-21] MEDS: Polyethylene Glycol 3350* 17 GM PACKET PO SCH ×2 (08:40→08:43)
[2017-05-21] MEDS: Docusate CAP* 100 MG PO SCH (08:40)
[2017-05-21] MEDS: Senna TAB PO SCH (08:40)
[2017-05-21] MEDS: Metoprolol Succinate XL TAB* 25 MG PO SCH (08:48)
[2017-05-21] MEDS: Insulin LISPRO* 1 UNITS UNIT SUBCUT SCH ×2 (08:48→15:33)
--- NOTE | 2017-05-21 18:49 | DS ---
CC: Dr. Saunders; Dr. Zuniga DISCHARGE SUMMARY: DATE OF ADMISSION: 05/19/17 DATE OF DISCHARGE: 05/21/17 PRIMARY CARE PROVIDER: Dr. Saunders. CONSULTING PAINTING MANAGER: Dr. Zuniga. DISCHARGE DIAGNOSES: 1. Recurrent nausea and vomiting, likely secondary to diabetic gastroparesis, cannabis hyperemesis may be also playing a role. 2. Mild lactic acidosis. SECONDARY DIAGNOSES: 1. Hypertension. 2. Coronary artery disease, status post PCI and CABG. 3. Type 2 diabetes. 4. Chronic pain. 5. Hyperlipidemia. 6. Status post laparoscopic cholecystectomy on 05/04/17. MEDICATION LIST: 1. Aspirin 81 mg p.o. daily. 2. Atorvastatin 20 mg p.o. daily. 3. Colace 100 mg p.o. daily. 4. Fentanyl patch 50 mcg topical q.72 hours. 5. NovoLog insulin sliding scale t.i.d. as follows: Fingersticks 131 to 150, 2 units; 151 to 200, 3 units; 201 to 250, 6 units; 251 to 300, 9 units; 301 to 350, 12 units; 351 to 400, 15 units; greater than 400, call MD. 6. Metoclopramide 10 mg p.o. a.c., h.s. 7. Metoprolol succinate 25 mg p.o. q.a.m., 50 mg p.o. q.p.m. 8. Nitro patch 0.4 mg an hour topical daily, remove at bedtime. 9. Ondansetron 4 mg p.o. t.i.d. as needed for nausea. 10. Pantoprazole 40 mg p.o. q.a.m. 11. Seroquel 50 mg p.o. at bedtime as needed for insomnia. 12. Ramipril 5 mg p.o. at bedtime. 13. Ranexa 1000 mg p.o. b.i.d. 14. Sucralfate 1 g p.o. a.c., h.s. 15. Lantus 30 units subcutaneously daily if sugars greater than 200. HOSPITAL COURSE: Mr. Kaye is a 47-year-old male with a past medical history as stated above that presented to the emergency room with complaints of nausea and vomiting for 3 days with inability to keep down any oral intake including his medications. The patient had been recently admitted to [facility] from 05/12/17 to 05/13/17 with similar complaints. For more details about his presentation, I refer to his history and physical. He was admitted for further symptom management. His laboratory tests showed mild elevation of lactic acid at 2.2. He underwent a nuclear medicine gastric emptying study that was an abnormal exam demonstrating documented gastroparesis. The patient received symptomatic treatment with IV medications and he had improvement of his symptoms. As this is his fourth admission since March with some sort of GI complaint, especially nausea and vomiting, GI consultation was requested and he was seen by Dr. Jermain Zuniga. He felt that gastroparesis was suspected on clinical grounds and it was confirmed by the nuclear medicine study. He felt that at some point, an upper endoscopy would be reasonable. He felt that more aggressive efforts to get his A1c down would probably be the best strategy to pursue here. Dr. Zuniga felt that maybe returning to [facility] would be the patient's best option, as he could be on an insulin pump again. Also, they may have access to different treatments for gastroparesis including domperidone or other protocol medications. He also felt that the patient should stop marijuana smoking, as this can be associated with his nausea. I did discuss with the patient cannabis related hyperemesis and the patient states that he smokes to help with his back pain, but that he is willing to quit at this point and see if this would cause any benefit related to his recurrent nausea and vomiting. The patient is medically stable to be discharged home today. He states that he will make his appointment to see Dr. Saunders as he knows his schedule better and will be able to fit his appointment in a better time. He will also pursue appointment at [facility] again to try to resume his treatment with an insulin pump and talk about other options for diabetic gastroparesis. PHYSICAL EXAMINATION: Vital Signs: Temperature 97.7, heart rate is 58, respiratory rate is 16, oxygen saturation 99% on room air, and blood pressure is 104/64. General: The patient is a pleasant middle-aged male, lying in bed, in no acute distress. CVS: Normal S1, S2. Regular rate and rhythm. Chest: Breath sounds present bilaterally with no added sounds. Abdomen is soft, nontender, nondistended. Bowel sounds are present. Extremities: No edema. Neuro: He is alert, awake, oriented x3. Able to move all 4 extremities. DIET: Heart healthy consistent carb diet. ACTIVITY: As tolerated. DISPOSITION: To home. STATUS IN THE HOSPITAL: Inpatient. Please keep in mind this is a summarized version of this patient's hospital stay. If you need more information, please feel free to call me at [phone] or please obtain the full medical records. TIME SPENT: Approximately 45 minutes was spent to complete this discharge. [id number]/[facility] #: [id number] HENRY
--- NOTE | 2017-05-21 21:21 | ED ---
Santiago Flanagan Benjamin, scribed for Dennis Kelly MD on 05/19/17 at 0902 . Abdominal Pain/Male - HPI Summary HPI Summary: 47yo male c/o N/V for 3 days. Pt was seen on 05/12/17 for the same symptoms and states besides 1-2 days, his symptoms hasnt been improving since. Pt states having vomited all day long and also experiencing some abdominal pain and heartburn from vomiting. Pain comes and goes, but worsens after vomiting. Pt also reports separate left chest pain and mild SOB. Denies any fever. Pt is diabetic, and had cholecystectomy done on 05/04/17. Hx of gastroparesis. Pt had BM x1 couple of days ago but nothing since. Still able to pass gas and denies any bloating in his abdomen. Reglan Zofran and compazine were used in the past. - History of Current Complaint Chief Complaint: EDNauseaVomitDiarrh Stated Complaint: VOMITING Time Seen by Provider: 05/19/17 07:45 Hx Obtained From: Patient Onset/Duration: Lasting Days, Still Present Timing: Intermittent Severity Initially: Mild Severity Currently: Mild Pain Intensity: 0 Pain Scale Used: 0-10 Numeric Location: Diffuse Radiates: Yes Radiates to: Chest Aggravating Factor(s): Other: - vomiting Associated Signs And Symptoms: Positive: Chest Pain, Constipation, Nausea, Vomiting, Other - SOB. Negative: Fever - Allergies/Home Medications Allergies/Adverse Reactions: Allergies Allergy/AdvReac Type Severity Reaction Status Date / Time Erythromycin AdvReac Intermediate Nausea And Verified 05/19/17 06:46 Vomiting PMH/Surg Hx/FS Hx/Imm Hx Endocrine/Hematology History: Reports: Hx Diabetes - TYPE 2 Denies: Hx Thyroid Disease Cardiovascular History: Reports: Hx Angina, Hx Coronary Artery Disease, Hx Hypercholesterolemia, Hx Hypertension - CONTROLLED WITH MEDS, Hx Myocardial Infarction, Other Cardiovascular Problems/Disorders - CARDIAC STENTS. CABG. HLD Denies: Hx Congestive Heart Failure, Hx Pacemaker/ICD, Hx Valvular Heart Disease Respiratory History: Denies: Hx Asthma, Hx Chronic Obstructive Pulmonary Disease (COPD) GI History: Reports: Hx Gall Bladder Disease - Removed. 05/04/17, Hx Gastroesophageal Reflux Disease - GASTROPARESIS, Other GI Disorders - GALLSTONES Denies: Hx Ulcer History: Denies: Hx Dialysis, Hx Renal Disease Musculoskeletal History: Reports: Hx Arthritis - hips and back, Hx Back Problems , Hx Bursitis - SHOULDERS, Other Musculoskeletal History - Degenerative joint disease, chronic lower back pain. hx OF OSTEOMYLITIS Sensory History: Reports: Hx Contacts or Glasses - Glasses Denies: Hx Hearing Aid Opthamlomology History: Reports: Hx Contacts or Glasses - Glasses Neurological History: Reports: Hx Migraine - OCCASSIONALY PER PT REPORT 1-2x per year, Other Neuro Impairments/Disorders - young's palsy, PAIN CLINIC PATIENT Psychiatric History: Reports: Hx Anxiety, Hx Depression, Hx Panic Disorder - does ok with mri foot, Hx Bipolar Disorder - Cancer History Hx Chemotherapy: No - Surgical History Surgery Procedure, Year, and Place: 2008 triple heart bypass; 2007 cardiac cath no stents; 2 stents placed March 2014 at [facility] [place] Hx Anesthesia Reactions: No - Immunization History Date of Tetanus Vaccine: up to date per pt Date of Influenza Vaccine: utd Infectious Disease History: No Infectious Disease History: Reports: History Other Infectious Disease - spinal meningitis Denies: Hx Clostridium Difficile, Hx Hepatitis, Hx Human Immunodeficiency Virus (HIV), Hx of Known/Suspected MRSA, Hx Shingles, Hx Tuberculosis, Hx Known/ Suspected VRE, Hx Known/Suspected VRSA, Traveled Outside the [place] in Last 30 Days - Family History Known Family History: Positive: Cardiac Disease - [place] - mother & father, Hypertension, Diabetes - Social History Occupation: Employed Full-time Lives: With Family Alcohol Use: None Alcohol Amount: 1-2 beers per week Hx Substance Use: No Substance Use Type: Reports: Marijuana Substance Use Comment - Amount & Last Used: 2 times per day Hx Tobacco Use: No Smoking Status (MU): Former Smoker Type: Cigarettes Amount Used/How Often: 3 packs per day for 2 years, 25 years ago Length of Time of Smoking/Using Tobacco: 4 years Have You Smoked in the Last Year: No Review of Systems Constitutional: Negative Negative: Fever, Skin Diaphoresis Eyes: Negative ENT: Negative Positive: Chest Pain. Negative: Palpitations Positive: Shortness Of Breath. Negative: Cough Positive: Abdominal Pain, Vomiting. Negative: Diarrhea Genitourinary: Negative Musculoskeletal: Negative Skin: Negative Neurological: Negative Psychological: Normal All Other Systems Reviewed And Are Negative: Yes Physical Exam Triage Information Reviewed: Yes Vital Signs On Initial Exam: Initial Vitals Temp Pulse Resp BP Pulse Ox 97 F 77 16 141/86 100 05/19/17 06:46 05/19/17 06:46 05/19/17 06:46 05/19/17 06:46 05/19/17 06:46 Vital Signs Reviewed: Yes Appearance: Positive: Well-Appearing, Well-Nourished, Pain Distress - mild Skin: Positive: Warm, Dry Head/Face: Positive: Normal Head/Face Inspection. Negative: TMJ Tenderness Eyes: Positive: EOMI, JEROME ENT: Positive: Hearing grossly normal Neck: Positive: Supple, Nontender, No Lymphadenopathy. Negative: Nuchal Rigidity, Tenderness @ Respiratory/Lung Sounds: Positive: Clear to Auscultation, Breath Sounds Present. Negative: Rales, Rhonchi, Tracheal Deviation, Wheezes Cardiovascular: Positive: RRR, Pulses are Symmetrical in both Upper and Lower Extremities. Negative: Murmur, Leg Edema Left, Leg Edema Right Abdomen Description: Positive: Nontender, Soft. Negative: Distended, Guarding Musculoskeletal: Positive: Strength/ROM Intact. Negative: Edema Left, Edema Right Neurological: Positive: Alert, Oriented to Person Place, Time Psychiatric: Positive: Affect/Mood Appropriate - Aj Coma Scale Coma Scale Total: 15 Diagnostics - Vital Signs Vital Signs Temp Pulse Resp BP Pulse Ox 05/19/17 06:46 97 F 77 16 141/86 100 - Laboratory Lab Results: Lab Results 05/19/17 05/19/17 05/19/17 Range/Units 08:15 08:15 08:15 WBC 11.7 H (3.5-10.8) 10^3/ul RBC 4.87 (4.0-5.4) 10^6/ul Hgb 14.6 (14.0-18.0) g/dl Hct 42 (42-52) % MCV 85 (80-94) fL MCH 30 (27-31) pg MCHC 35 (31-36) g/dl RDW 13 (10.5-15) % Plt Count 252 (150-450) 10^3/ul MPV 9 (7.4-10.4) um3 Neut % (Auto) 73.7 (38-83) % Lymph % (Auto) 18.6 L (25-47) % Forrest % (Auto) 6.5 (1-9) % Eos % (Auto) 0.5 (0-6) % Baso % (Auto) 0.7 (0-2) % Absolute Neuts (auto) 8.7 H (1.5-7.7) 10^3/ul Absolute Lymphs (auto) 2.2 (1.0-4.8) 10^3/ul Absolute Monos (auto) 0.8 (0-0.8) 10^3/ul Absolute Eos (auto) 0.1 (0-0.6) 10^3/ul Absolute Basos (auto) 0.1 (0-0.2) 10^3/ul Absolute Nucleated RBC 0.01 10^3/ul Nucleated RBC % 0.1 Sodium 137 (133-145) mmol/L Potassium Pending Chloride 99 L (101-111) mmol/L Carbon Dioxide 25 (22-32) mmol/L Anion Gap Pending BUN 8 (6-24) mg/dL Creatinine 0.78 (0.67-1.17) mg/dL Est GFR ( Amer) 136.6 (>60) Est GFR (Non-Af Amer) 106.2 (>60) BUN/Creatinine Ratio 10.3 (8-20) Glucose 195 H (70-100) mg/dL POC Glucose (mg/dL) (70-100) mg/dL Lactic Acid 2.2 H* (0.5-2.0) mmol/L Calcium 10.4 H (8.6-10.3) mg/dL Total Bilirubin 0.80 (0.2-1.0) mg/dL AST Pending ALT 20 (7-52) U/L Alkaline Phosphatase 78 (34-104) U/L Troponin I 0.01 (<0.04) ng/mL C-Reactive Protein Pending Total Protein 8.6 (6.4-8.9) g/dL Albumin 5.0 (3.2-5.2) g/dL Globulin 3.6 (2-4) g/dL Albumin/Globulin Ratio 1.4 (1-3) Lipase < 10 L (11.0-82.0) U/L Urine Color Urine Appearance Urine pH (5-9) Ur Specific [place] (1.010-1.030) Urine Protein (Negative) Urine Ketones (Negative) Urine Blood (Negative) Urine Nitrate (Negative) Urine Bilirubin (Negative) Urine Urobilinogen (Negative) Ur Leukocyte Esterase (Negative) Urine Glucose (Negative) 05/19/17 05/19/17 Range/Units 08:38 08:38 WBC (3.5-10.8) 10^3/ul RBC (4.0-5.4) 10^6/ul Hgb (14.0-18.0) g/dl Hct (42-52) % MCV (80-94) fL MCH (27-31) pg MCHC (31-36) g/dl RDW (10.5-15) % Plt Count (150-450) 10^3/ul MPV (7.4-10.4) um3 Neut % (Auto) (38-83) % Lymph % (Auto) (25-47) % Forrest % (Auto) (1-9) % Eos % (Auto) (0-6) % Baso % (Auto) (0-2) % Absolute Neuts (auto) (1.5-7.7) 10^3/ul Absolute Lymphs (auto) (1.0-4.8) 10^3/ul Absolute Monos (auto) (0-0.8) 10^3/ul Absolute Eos (auto) (0-0.6) 10^3/ul Absolute Basos (auto) (0-0.2) 10^3/ul Absolute Nucleated RBC 10^3/ul Nucleated RBC % Sodium (133-145) mmol/L Potassium Chloride (101-111) mmol/L Carbon Dioxide (22-32) mmol/L Anion Gap BUN (6-24) mg/dL Creatinine (0.67-1.17) mg/dL Est GFR ( Amer) (>60) Est GFR (Non-Af Amer) (>60) BUN/Creatinine Ratio (8-20) Glucose (70-100) mg/dL POC Glucose (mg/dL) 171 H (70-100) mg/dL Lactic Acid (0.5-2.0) mmol/L Calcium (8.6-10.3) mg/dL Total Bilirubin (0.2-1.0) mg/dL AST ALT (7-52) U/L Alkaline Phosphatase (34-104) U/L Troponin I (<0.04) ng/mL C-Reactive Protein Total Protein (6.4-8.9) g/dL Albumin (3.2-5.2) g/dL Globulin (2-4) g/dL Albumin/Globulin Ratio (1-3) Lipase (11.0-82.0) U/L Urine Color Yellow Urine Appearance Clear Urine pH 7.0 (5-9) Ur Specific [place] 1.019 (1.010-1.030) Urine Protein Negative (Negative) Urine Ketones 1+ H (Negative) Urine Blood Negative (Negative) Urine Nitrate Negative (Negative) Urine Bilirubin Negative (Negative) Urine Urobilinogen Negative (Negative) Ur Leukocyte Esterase Negative (Negative) Urine Glucose 1+(50 mg/dl) H (Negative) Result Diagrams: 05/19/17 08:15 05/19/17 10:16 Lab Statement: Any lab studies that have been ordered have been reviewed, and results considered in the medical decision making process. - EKG 0750. Cardiac Rate: NL - 66bpm EKG Rhythm: Sinus Rhythm EKG Interpretation: no STEMI Abdominal Pain Fem Course/Dx - Course Course Of Treatment: Reviewed pts medication and allergy lists. High blood pressure noted. Discussed with Dr. Alvarez (Hospitalist) at 0956. - Diagnoses Provider Diagnoses: Chest pain, Gastroparesis Discharge - Discharge Plan Condition: Fair Disposition: HOME The documentation as recorded by the Santiago shore Benjamin accurately reflects the service I personally performed and the decisions made by , Dennis Kelly MD.
== END 2017-05-21 12:40 | disposition home or self-care (01) ==
LOC: ED 06:31 → MED 09:58
PROVIDERS: ADMIT Internal Medicine; ATTEND Internal Medicine
DX: R11.2 Nausea with vomiting, unspecified (principal); E11.43 Type 2 diabetes mellitus with diabetic autonomic (poly)neuropathy; K31.84 Gastroparesis; Z79.4 Long term (current) use of insulin; F12.99 Cannabis use, unspecified with unspecified cannabis-induced disorder; I10 Essential (primary) hypertension; I25.10 Atherosclerotic heart disease of native coronary artery without angina pectoris; Z95.1 Presence of aortocoronary bypass graft; G89.29 Other chronic pain; Z79.899 Other long term (current) drug therapy; E78.5 Hyperlipidemia, unspecified
CPT/HCPCS: 36415; 78264; 80053; 81003; 83605; 83690; 84484; 85025; 86140; 93005; 96374; 99284; A9270-GY; A9541; G0378; J1644; J2405; J2765

== ENCOUNTER 2017-08-19 19:07 | Observation (INO) | payer MEDICARE ==
[2017-08-19] MEDS ORDERED: Famotidine IV* 10 MG/ML 2 ML (20 mg) IV ONE (21:20)
[2017-08-19] MEDS ORDERED: Metoclopramide IV* 5 MG/ML 2 ML VIAL IV ONE (21:20)
[2017-08-19] MEDS ORDERED: Morphine INJ* 4 MG/ML 1 ML CARPUJECT IV ONE ×2 (21:20→23:04)
[2017-08-19] MEDS ORDERED: Ondansetron INJ* 2 MG/ML VIAL IV ONE (21:46)
[2017-08-19 22:03] LABS: Hematocrit 47 % (42-52); Hemoglobin 16.3 g/dl (14.0-18.0); Mean Corpuscular HGB Conc 35 g/dl (31-36); Mean Corpuscular Hemoglobin 29 pg (27-31); Mean Corpuscular Volume 84 fL (80-94); Mean Platelet Volume 9 um3 (7.4-10.4); Red Blood Count 5.58 10^6/ul (4.0-5.4); Red Cell Distribution Width 13 % (10.5-15); White Blood Count 13.4 10^3/ul (3.5-10.8)
[2017-08-19] MEDS: NS 0.9% 1000 ML* 2,000 ML IV ONE (22:11)
[2017-08-19] MEDS ORDERED: Insulin REGULAR(*) 1 UNITS UNIT IV PUSH ONE (22:33)
[2017-08-19 22:37] LABS: Albumin 4.7 g/dL (3.2-5.2); BUN/Creatinine Ratio 7.7 (8-20); C Reactive Protein 6.68 mg/L (< 5.00); Calcium 10.6 mg/dL (8.6-10.3); EGFR African American 114.4 (>60); EGFR Non-African American 88.9 (>60); Potassium 3.5 mmol/L (3.5-5.0); Total Bilirubin 1.1 mg/dL (0.2-1.0); Total Protein 7.7 g/dL (6.4-8.9)
[2017-08-19] MEDS ORDERED: Iodixanol* (CONTRAST) 320 MG/ML 100 ML SDV IV ONE (23:12)
[2017-08-19] MEDS ORDERED: Diazepam SYRINGE* 5 MG/ML 2 ML SYRINGE (10 MG total) IV ONE (23:39)
[2017-08-20 00:46] LABS: Urine Bilirubin Negative (Negative); Urine Glucose 3+(>=500 mg/dL) (Negative); Urine Nitrite Negative (Negative)
--- NOTE | 2017-08-20 00:51 | ED ---
Emely Flanagan Thomas, scribed for Imtiaz Do MD on 08/19/17 at 2126 . Abdominal Pain/Male - HPI Summary HPI Summary: The pt is a 47 y/o M presenting to the ED c/o nausea and vomiting that began today at 09:00. The pain is constant. The pain is rated 9/10. The pain is aggravated by palpation and is alleviated by nothing. The patient has treated the symptoms with Fentanyl 50 mcg and Zofran today at 15:00. Pt additionally c/ o some diarrhea. The patient developed epigastric pain after vomiting. PMHx includes DM, CAD, [place], chronic back pain, and gastroparesis. PSHx includes CABG, cardiac stents, and cholecystectomy. - History of Current Complaint Chief Complaint: EDNauseaVomitDiarrh Stated Complaint: VOMITING Time Seen by Provider: 08/19/17 21:08 Hx Obtained From: Patient Onset/Duration: Lasting Hours - onset today at 09:00, Still Present Timing: Constant Severity Currently: Severe Pain Intensity: 9 Pain Scale Used: 0-10 Numeric Location: Epigastric Radiates: No Aggravating Factor(s): Other: - Palpation Alleviating Factor(s): Nothing Associated Signs And Symptoms: Positive: Nausea, Vomiting, Diarrhea - Allergies/Home Medications Allergies/Adverse Reactions: Allergies Allergy/AdvReac Type Severity Reaction Status Date / Time Erythromycin AdvReac Intermediate Nausea And Verified 08/19/17 19:21 Vomiting CATS Allergy Eyes Uncoded 08/19/17 19:21 Itchy/Swollen/Red/Watery PMH/Surg Hx/FS Hx/Imm Hx Previously Healthy: No Endocrine/Hematology History: Reports: Hx Diabetes - TYPE 2 Denies: Hx Thyroid Disease Cardiovascular History: Reports: Hx Angina, Hx Coronary Artery Disease, Hx Hypercholesterolemia, Hx Hypertension - CONTROLLED WITH MEDS, Hx Myocardial Infarction, Other Cardiovascular Problems/Disorders - CARDIAC STENTS. CABG. HLD Denies: Hx Congestive Heart Failure, Hx Pacemaker/ICD, Hx Valvular Heart Disease Respiratory History: Denies: Hx Asthma, Hx Chronic Obstructive Pulmonary Disease (COPD) GI History: Reports: Hx Gall Bladder Disease - Removed. 05/04/17, Hx Gastroesophageal Reflux Disease - GASTROPARESIS, Other GI Disorders - GALLSTONES Denies: Hx Ulcer History: Denies: Hx Dialysis, Hx Renal Disease Musculoskeletal History: Reports: Hx Arthritis - hips and back, Hx Back Problems , Hx Bursitis - SHOULDERS, Other Musculoskeletal History - Degenerative joint disease, chronic lower back pain. hx OF OSTEOMYLITIS Sensory History: Reports: Hx Contacts or Glasses - Glasses Denies: Hx Hearing Aid Opthamlomology History: Reports: Hx Contacts or Glasses - Glasses Neurological History: Reports: Hx Migraine - OCCASSIONALY PER PT REPORT 1-2x per year, Other Neuro Impairments/Disorders - young's palsy, PAIN CLINIC PATIENT Psychiatric History: Reports: Hx Anxiety, Hx Depression, Hx Panic Disorder - does ok with mri foot, Hx Bipolar Disorder - Cancer History Hx Chemotherapy: No - Surgical History Surgery Procedure, Year, and Place: 2009 triple heart bypass;. 2008 cardiac cath no stents;. CARDIAC CATH 2 stents placed March 2014 at [facility] [place]. GALLBLADDER Apr; Hx Anesthesia Reactions: No - Immunization History Date of Tetanus Vaccine: up to date per pt Date of Influenza Vaccine: Infectious Disease History: No Infectious Disease History: Reports: History Other Infectious Disease - spinal meningitis Denies: Hx Clostridium Difficile, Hx Hepatitis, Hx Human Immunodeficiency Virus (HIV), Hx of Known/Suspected MRSA, Hx Shingles, Hx Tuberculosis, Hx Known/ Suspected VRE, Hx Known/Suspected VRSA, Traveled Outside the [place] in Last 30 Days - Family History Known Family History: Positive: Cardiac Disease - [place] - mother & father, Hypertension, Diabetes - Social History Alcohol Use: None Alcohol Amount: 1-2 beers per week Hx Substance Use: No Substance Use Type: Reports: Marijuana Substance Use Comment - Amount & Last Used: "couple days ago". Hx Tobacco Use: Yes Smoking Status (MU): Former Smoker Type: Smokeless Tobacco Amount Used/How Often: Chews one tin per week Length of Time of Smoking/Using Tobacco: 4 years Have You Smoked in the Last Year: No Review of Systems Negative: Fever Positive: Abdominal Pain - epigastric, Vomiting, Diarrhea, Nausea All Other Systems Reviewed And Are Negative: Yes Physical Exam - Summary Physical Exam Summary: VITAL SIGNS: Reviewed. GENERAL: Patient is a well-developed and nourished male who is lying comfortable in the stretcher. Patient is not in any acute respiratory distress. HEAD AND FACE: No signs of trauma. No ecchymosis, hematomas or skull depressions. No sinus tenderness. EYES: PERRLA, EOMI x 2, No injected conjunctiva, no nystagmus. EARS: Hearing grossly intact. Ear canals and tympanic membranes are within normal limits. MOUTH: Oropharynx within normal limits. NECK: Supple, trachea is midline, no adenopathy, no JVD, no carotid bruit, no c- spine tenderness, neck with full ROM. CHEST: Symmetric, no tenderness at palpation LUNGS: Clear to auscultation bilaterally. No wheezing or crackles. CVS: Regular rate and rhythm, S1 and S2 present, no murmurs or gallops appreciated. ABDOMEN: Soft. The patient has diffuse abdominal tenderness, most in the epigastrium. No signs of distention. No rebound no guarding, and no masses palpated. There are hypoactive bowel sounds. EXTREMITIES: FROM in all major joints, no edema, no cyanosis or clubbing. NEURO: Alert and oriented x 3. No acute neurological deficits. Speech is normal and follows commands. SKIN: Dry and warm Triage Information Reviewed: Yes Vital Signs On Initial Exam: Initial Vitals Temp Pulse Resp BP Pulse Ox 98.1 F 83 20 149/84 100 08/19/17 19:18 08/19/17 19:18 08/19/17 19:18 08/19/17 19:18 08/19/17 19:18 Vital Signs Reviewed: Yes - [place] Coma Scale Coma Scale Total: 15 Diagnostics - Vital Signs Vital Signs Temp Pulse Resp BP Pulse Ox 08/19/17 20:38 74 99 08/19/17 20:35 174/85 08/19/17 19:18 98.1 F 83 20 149/84 100 - Laboratory Lab Results: Lab Results 08/19/17 Range/Units 19:26 POC Glucose (mg/dL) 301 H (70-100) mg/dL Result Diagrams: 08/19/17 21:46 08/19/17 21:46 Lab Statement: Any lab studies that have been ordered have been reviewed, and results considered in the medical decision making process. - CT CT Abd/Pel CT Interpretation: No Acute Changes - There is no bowel obstruction, free air or free fluid. Normal appendix visualized. Negative for diverticulitis. The colon is nearly completely non-distended so difficult to evaluate for a mild colitis. No obvious inflammatory changes of the colon or small bowel. Tiny nonobstructing right renal stone. Otherwise normal kidneys urinary tracts and urinary bladder. Liver may be somewhat fatty. Prior cholecystectomy. Normal spleen. Normal pancreas. Normal adrenal glands. Small hiatal hernia. Otherwise no acute abnormalities. ED physician has reviewed this report and agrees. CT Interpretation Completed By: Radiologist - EKG 19:11 Cardiac Rate: NL EKG Rhythm: Sinus Rhythm - at 74 BPM EKG Interpretation: Nonspecific ST changes. No difference from EKG on 05/20/17. Abdominal Pain Fem Course/Dx - Course Assessment/Plan: The patient has a longstanding history of DM and gastroparesis. The patient is still vomiting in the ED after he has been medicated. The patients labs are consistent with severe dehydration. - Diagnoses Provider Diagnoses: Gastroparesis, Intractable vomiting, Dehydration - Provider Notifications Discussed Care Of Patient With: Melanie Hooper Time Discussed With Above Provider: 00:42 Instructed by Provider To: Admit As Inpatient Discharge - Discharge Plan Condition: Fair Disposition: ADMITTED TO [facility] Referrals: Nicky DIXON,Tito Castillo [Primary Care Provider] - The documentation as recorded by the Emely shore Thomas accurately reflects the service I personally performed and the decisions made by , Imtiaz Do MD.
[2017-08-20] MEDS ORDERED: NS 0.9% 1000 ML* 1,000 ML IV ONE ×2 (00:57→01:10)
[2017-08-20] MEDS ORDERED: Docusate CAP* 100 MG PO PRN (01:11)
[2017-08-20] MEDS ORDERED: Al Hydrox/Mg Hydrox/Simet LIQ* 30 ML UDC PO PRN (01:11)
[2017-08-20] MEDS ORDERED: Senna TAB PO PRN (01:11)
[2017-08-20] MEDS ORDERED: Ondansetron INJ* 2 MG/ML VIAL IV PRN (01:11)
[2017-08-20] MEDS ORDERED: Acetaminophen TAB* 325 MG PO PRN (01:11)
[2017-08-20] MEDS ORDERED: Metoclopramide IV* 5 MG/ML 2 ML VIAL IV PRN (01:14)
[2017-08-20] MEDS ORDERED: Atorvastatin* 80 MG TAB PO ONE (01:16)
[2017-08-20] MEDS ORDERED: QUEtiapine TAB* 25 MG PO PRN (01:19)
[2017-08-20] MEDS ORDERED: Insulin REGULAR(*) 100 UNITS in NS 0.9% 100 ML* 100 ML IVPB ONE (01:21)
[2017-08-20] MEDS ORDERED: NS 0.9% w/ 20 Meq KCL 1000 ML* 1,000 ML IV SCH (02:00)
[2017-08-20] MEDS ORDERED: fentaNYL PATCH 50 MCG/HR TRANSDERM SCH (02:00)
[2017-08-20 02:37] LABS: Troponin I 0.01 ng/mL (<0.04)
[2017-08-20] MEDS ORDERED: PROCHLORPERAZINE INJ 5 MG/ML 2 ML VIAL IV PRN (02:50)
[2017-08-20] MEDS ORDERED: Morphine INJ* 2 MG/ML 1 ML SYRINGE (TWO MG - NEW SYRINGE VERSION) IV PRN (03:03)
[2017-08-20] MEDS ORDERED: PROCHLORPERAZINE INJ 5 MG/ML 2 ML VIAL ONE (03:06)
[2017-08-20 03:09] LABS: Benzodiazepine Urine Screen None Detected (None Detect)
[2017-08-20 04:35] LABS: BUN/Creatinine Ratio 7.6 (8-20); Calcium 9.1 mg/dL (8.6-10.3); EGFR African American 134.6 (>60); EGFR Non-African American 104.7 (>60); Potassium 3.4 mmol/L (3.5-5.0)
[2017-08-20 04:37] LABS: Troponin I 0.02 ng/mL (<0.04)
[2017-08-20] MEDS ORDERED: KCL 20 MEQ/100 ML IVPREMIX* 20 MEQ/100 ML BAG IV ONE (05:07)
[2017-08-20] MEDS: Heparin VIAL(*) 5000 UNITS/ML VIAL (FIVE THOUSAND) SUBCUT SCH ×3 (05:47→21:07)
[2017-08-20] MEDS: Omeprazole CAP* 20 MG PO SCH (05:47)
[2017-08-20] MEDS ORDERED: Potassium Chlor TAB* 20 MEQ TAB.ER PO ONE ×2 (05:50→11:11)
[2017-08-20] MEDS: D5W 1/2 NS KCl 20 Meq 1000 ML* 1,000 ML IV SCH ×2 (05:52→12:08)
--- NOTE | 2017-08-20 06:33 | HP ---
CC: Tito Saunders MD HISTORY AND PHYSICAL: DATE OF ADMISSION: 08/20/17 TIME OF EVALUATION: 0100. PRIMARY CARE PHYSICIAN: Tito Saunders MD CHIEF COMPLAINT: Intractable nausea and vomiting. HISTORY OF PRESENT ILLNESS: This is a 47-year-old male with a past medical history of CAD, diabetes, and gastroparesis, who presents to the emergency room with 2 days of intractable nausea or vomiting. He states he is not clear when his symptoms began exactly, but they have been going on for several hours with no improvement in symptoms. He now has developed abdominal pain following all the nausea. He states he had a small amount of diarrhea. He still appears nauseated. He just vomited a few minutes ago. He does have some shortness of breath and chest pain. He denies any upper respiratory symptoms. No fevers or chills. No sick contacts. He denies any changes in his weight. He was admitted back in April for similar symptoms with diagnosis of gastroparesis at that time, was scheduled to follow up per GI with possibility of an insulin pump and better glucose control, but he has not followed up. He states the blood sugars run about 200. Otherwise, remaining of the review of systems is negative. In the emergency room, the patient had labs, imaging. He was given 1 L of normal saline, Valium 5 mg, Pepcid 20 mg IV, 4 units of insulin, 10 mg of Reglan, 8 mg of morphine, 8 mg of Zofran, and was referred to the hospitalist service for further evaluation. PAST MEDICAL HISTORY: 1. Coronary artery disease, status post bypass in 2008 and PCI, followed by Dr. Oswald. 2. Diabetes, complicated by gastroparesis. 3. Hyperlipidemia. 4. Hypertension. 5. Chronic back pain. 6. History of depression. 7. Sleep disturbance. PAST SURGICAL HISTORY: Coronary artery bypass graft in 2008, cholecystectomy in April 2017. MEDICATIONS: 1. Lantus units in the morning. 2. NovoLog sliding scale. 3. Atorvastatin 80 mg in the morning. 4. Pantoprazole 40 mg in the morning. 5. Aspirin 81 mg p.o. daily. 6. Ramipril 5 mg q.a.m. 7. Zofran 4 mg q.a.m. 8. Metoprolol succinate 25 mg ER q.a.m. 9. Ranexa 1000 mg p.o. b.i.d. 10. Colace 100 mg q.a.m. 11. Reglan 10 mg before each meal and at bedtime. 12. Sucralfate 1 g before each meal. 13. Seroquel 50 mg as needed. 14. Fentanyl patch 50 mcg every 72 hours. 15. Nitroglycerin patch 0.4 mg as needed at night. 16. Nitroglycerin pills 0.4 mg as needed. ALLERGIES: ERYTHROMYCIN and CATS. FAMILY HISTORY: Positive for congestive heart failure in both mother and father , diabetes, hypertension, and hyperlipidemia. SOCIAL HISTORY: Lives at home with his who is his healthcare proxy. Still using marijuana daily for his back. He is a former smoker, quit 30 years ago. No alcohol use. He is disabled from his heart. CODE STATUS: Full code. REVIEW OF SYSTEMS: A 14-point review of systems as mentioned in the HPI, otherwise negative. PHYSICAL EXAMINATION GENERAL: Mildly ill-appearing. VITAL SIGNS: Temp 98.1, pulse rate 84, respiratory rate 16, oxygen saturation 99% on room air, and blood pressure 177/95. HEENT: Head normocephalic. Pupils are equal and reactive and anicteric. Oropharynx: Mucous membranes are dry. No erythema and no exudate. RESPIRATORY: Diminished breath sounds. No wheezes, rhonchi, or rales. CARDIAC: Regular rate and rhythm. Systolic murmur was present at the left sternal base. ABDOMEN: Hypoactive bowel sounds, diffusely tender. Nondistended. No rebound or guarding. EXTREMITIES: No clubbing, no cyanosis, and no edema. NEUROLOGIC: Alert and oriented x3, no focal neurologic deficits. DIAGNOSTIC STUDIES/LAB DATA: White count 13.4, hemoglobin 16.3, hematocrit 47 , platelets 212. INR is 0.97. Sodium 136, potassium 3.5, chloride 97, bicarb 17, anion gap of 22, BUN 7, creatinine 0.91, glucose 303, lactic acid 3.9. CRP 6.68. Urine shows 2+ ketones. Radiographic data: Abdominal and pelvis CT shows no bowel obstruction or free fluid. Normal appendix visualized. Negative for diverticulitis. The colon is nearly completely nondistended, so it is difficult to evaluate for a mild colitis. No obvious inflammatory change of the colon or small bowel. Tiny nonobstructive right renal stone, otherwise normal kidneys, urinary tract, and urinary bladder. ASSESSMENT AND PLAN: This is a 47-year-old male with a past medical history of diabetes, gastroparesis, and coronary artery disease, who presented to the emergency room with intractable nausea, vomiting, and then abdominal pain. 1. Intractable nausea, vomiting, and abdominal pain. Assessment: The patient has a history of this in the past, was admitted back in April for intractable nausea and vomiting that was thought to be secondary to gastroparesis. He did not follow up with gastroenterology. Also concerning that he is showing signs of mild diabetic ketoacidosis, could be what started the vomiting or could be contributed by the vomiting. It is unclear which started first. He states his blood sugars run in the 200s. Plan: We will admit him to the ICU for an insulin drip, more aggressive IV fluid hydration, monitor his labs, and glucose q.1 hour, and hope to transition him back to subcu in the morning. We will check a hemoglobin A1c as well. We will continue his antiemetics and switch his Bentyl over to IV. If no improvement in his intractable vomiting despite correcting his diabetic ketoacidosis, then consider further workup with Gastroenterology. I suspect that it is possible that he has hyperemesis from marijuana use; however, it does not appear that the patient will be willing to stop using the marijuana. 2. Mild chest pain and shortness of breath. Assessment: The patient with a history of coronary artery disease and multiple risk factors. EKG shows no significant change from prior EKG. Plan: We will check a troponin and trend them and consider an echocardiogram with his murmur if he has not had one done recently. CHRONIC MEDICAL PROBLEMS: 1. Diabetes as above. 2. Cardiac. I will resume his home medication regimen. FEN. We will keep him n.p.o. with ice chips and advance once he is no longer in DKA. DVT prophylaxis. The patient scores moderate risk. Place on heparin subcu t.i.d. Chronic pain. We will continue his fentanyl patch and Seroquel as needed. GERD. We will start him on omeprazole in place of pantoprazole. Code status. Full code. PATIENT TIME: Greater than 60 minutes spent doing the history and physical, more than half the time was spent in direct patient contact. [id number]/[facility] #: [id number] [facility] HEALTH SERVICESFernando
[2017-08-20 07:13] LABS: Magnesium 1.8 mg/dL (1.9-2.7)
[2017-08-20] MEDS: fentaNYL Patch Check Q Shift 1 NOTE SCH ×2 (07:24→19:04)
[2017-08-20] MEDS: Metoprolol Succinate XL TAB* 25 MG PO SCH (08:48)
[2017-08-20] MEDS: Sucralfate TAB* 1 GM PO SCH ×3 (08:48→17:16)
[2017-08-20] MEDS: Aspirin EC Low Dose* 81 MG TAB.EC PO SCH (08:48)
[2017-08-20] MEDS: Ramipril CAP* 5 MG PO SCH (08:48)
[2017-08-20] MEDS: CMCS:Ranolazine (NF) 500 MG TAB PO SCH ×2 (08:48→21:07)
--- NOTE | 2017-08-20 08:48 | RAD ---
CLINICAL HISTORY: Abdominal pain COMPARISON: Most recent comparison CT examination is dated May 11, 2017 TECHNIQUE: Contrast enhanced CT examination of the abdomen and pelvis from the lung bases through the initial tuberosities. The patient received 100 mL Visipaque 320 intravenously prior to imaging. FINDINGS: VISUALIZED LUNG BASES: The visualized lung bases are grossly clear. There is no pleural effusion. ABDOMEN AND PELVIS: The liver is homogenously hypodense relative to the spleen. This appearance could be seen in the setting of hepatic steatosis. There are no focal suspicious liver masses or surface irregularity. The spleen, pancreas and adrenal glands are grossly normal in appearance. The gallbladder is surgically absent. The kidneys are normal in appearance without focal mass, calcification or signs of hydronephrosis. Evaluation of the gastrointestinal tract is limited without oral contrast. The small and large bowel are not distended. The patient's normal appendix is identified in the right lower quadrant measuring just under 5 mm in diameter. There is no gross retroperitoneal or mesenteric lymphadenopathy. The pelvic viscera is normal in appearance. The mildly calcified abdominal aorta and iliac arteries are normal in course and diameter. Degenerative changes include multilevel loss of intervertebral disc height involving the lower thoracic and lumbar spine. A low-attenuation lesion at the T9 vertebral body, unchanged in the prior CT examination, is most consistent with a hemangioma.There are no sinister bone lesions. IMPRESSION: 1. Likely hepatic steatosis or other chronic infiltrative disease of the liver. 2. Additional chronic, degenerative and iatrogenic findings as described in the body the report without acute findings that would account for the patient's current presentation.
--- NOTE | 2017-08-20 09:21 | PN ---
Subjective Date of Service: 08/20/17 Interval History: HOSPITALIST PROGRESS NOTE Patient seen and examined at bedside. He feels better this AM, N/V are resolved and he feels ready to try solid food. Family History: Unchanged from Admission Social History: Unchanged from Admission Past Medical History: Unchanged from Admission Objective Active Medications: Acetaminophen (Tylenol Tab*) 650 mg PO Q4H PRN PRN Reason: FEVER/PAIN Al Hydrox/Mg Hydrox/Simethicone (Maalox Plus*) 30 ml PO Q6H PRN PRN Reason: INDIGESTION Aspirin (Aspirin Ec Low Dose*) 81 mg PO DAILY [facility] Last Admin: 08/20/17 08:48 Dose: 81 mg Docusate Sodium (Colace Cap*) 100 mg PO BID PRN PRN Reason: CONSTIPATION Fentanyl (Duragesic Patch 50 Mcg/Hr*) 50 mcg TRANSDERM Q72H [facility] Last Admin: 08/20/17 02:35 Dose: 50 mcg Heparin Sodium (Porcine) (Heparin Vial(*)) 5,000 units SUBCUT Q8HR [facility] Last Admin: 08/20/17 05:47 Dose: 5,000 units Insulin Human Regular 100 (units/ Sodium Chloride) 100 mls @ 9.07 mls/hr IVPB .RATE=0.1 UNIT/KG/HR ONE PRN Reason: 0.1 UNIT/KG/HR Stop: 08/20/17 12:22 Last Admin: 08/20/17 02:01 Dose: 5 mls/hr Potassium Chloride/Dextrose (D5w 1/2 Ns Kcl 20 Meq 1000 Ml*) 1,000 mls @ 175 mls/hr IV PER RATE [facility] Last Admin: 08/20/17 05:52 Dose: 175 mls/hr Metoclopramide HCl (Reglan Iv*) 10 mg IV Q6H PRN PRN Reason: NAUSEA/VOMITING Metoprolol Succinate (Toprol Xl Tab*) 25 mg PO DAILY [facility] Last Admin: 08/20/17 08:48 Dose: 25 mg Morphine Sulfate (Morphine Inj (Syringe)*) 2 mg IV Q4H PRN PRN Reason: PAIN - MILD Last Admin: 08/20/17 03:24 Dose: 2 mg Omeprazole (Prilosec Cap*) 20 mg PO 0600 [facility] Last Admin: 08/20/17 05:47 Dose: 20 mg Ondansetron HCl (Zofran Inj*) 4 mg IV Q4H PRN PRN Reason: NAUSEA/VOMITING Pharmacy Profile Note (Fentanyl Patch Check Q Shift) 1 note N/A 0700,1900 [facility] Last Admin: 08/20/17 07:24 Dose: 1 note Prochlorperazine Edisylate (Compazine Inj*) 10 mg IV Q6H PRN PRN Reason: NAUSEA/VOMITING Quetiapine Fumarate (Seroquel Tab*) 50 mg PO DAILY PRN PRN Reason: AGITATION/ANXIETY Ramipril (Altace Cap*) 5 mg PO DAILY [facility] Last Admin: 08/20/17 08:48 Dose: 5 mg Ranolazine (Ranexa (Nf)) 1,000 mg PO BID [facility] Last Admin: 08/20/17 08:48 Dose: 1,000 mg Senna (Senokot Tab*) 1 tab PO BID PRN PRN Reason: CONSTIPATION Sucralfate (Carafate*) 1 gm PO AC [facility] Last Admin: 08/20/17 08:48 Dose: 1 gm Vital Signs 08/20/17 08/20/17 08/20/17 07:00 07:02 07:54 Temperature 98.3 F Pulse Rate 78 80 Respiratory 12 18 Rate Blood Pressure 122/68 (mmHg) O2 Sat by Pulse 98 99 Oximetry Oxygen Devices in Use Now: None Appearance: Pleasant middle aged male lying in bed in [facility]. Eyes: No Scleral Icterus Ears/Nose/Mouth/Throat: Mucous Membranes Moist Neck: Trachea Midline Respiratory: Symmetrical Chest Expansion and Respiratory Effort, Clear to Auscultation Cardiovascular: RRR - Normal S1 and S2 Abdominal: NL Sounds; No Tenderness; No Distention Neurological: Alert and Oriented x 3, NL Muscle Strength and Tone Lines/Tubes/Other Access: Clean, Dry and Intact Peripheral IV Result Diagrams: 08/20/17 09:20 08/20/17 09:20 Assess/Plan/Problems-Billing Assessment: Mr. Kaye is a 47yo M with PMH of CAD s/p CABG/PCI, type 2 DM, diabetic gastroparesis, HLD, HTN, chronic back pain, depression, who presented to ED with c/o recurrent N/V. - Patient Problems (1) Nausea & vomiting Comment: - Associated with gastroparesis, poor DM control, and marijuana use. - Patient not interested in insulin pump for tighter DM control. - Despite counseling during prior admission, patient continues to smoke marijuana to help with pain control - suspect a component of cyclic vomiting syndrome associated with chronic marijuana use. - Continue Omeprazole, Sulcralfate, Reglan and Zofran PRN. (2) Diabetes Comment: - Uncontrolled. I suspect his acidosis and AG on admission are most likely secondary to starvation ketosis and not DKA. - D/c insulin drip, resume diet and Lantus/Lispro SS. - Follow A1c. (3) Chest pain Comment: - Likely secondary to emetogenic esophagitis. - Serial troponins were negative. - Continue PPI, sucralfate, and anti-emetics. - D/c Telemetry. (4) Hypokalemia Comment: - Replete. (5) DVT prophylaxis Comment: - SQ heparin. (6) Full code status Status and Disposition: Inpatient. Transfer to medical floor.
[2017-08-20 09:45] LABS: Hematocrit 40 % (42-52); Hemoglobin 13.7 g/dl (14.0-18.0); Mean Corpuscular HGB Conc 34 g/dl (31-36); Mean Corpuscular Hemoglobin 29 pg (27-31); Mean Corpuscular Volume 84 fL (80-94); Mean Platelet Volume 9 um3 (7.4-10.4); Red Blood Count 4.72 10^6/ul (4.0-5.4); Red Cell Distribution Width 13 % (10.5-15); White Blood Count 12.9 10^3/ul (3.5-10.8)
[2017-08-20 09:58] LABS: BUN/Creatinine Ratio 6.4 (8-20); Calcium 9.1 mg/dL (8.6-10.3); EGFR African American 136.6 (>60); EGFR Non-African American 106.2 (>60); Potassium 3.4 mmol/L (3.5-5.0)
[2017-08-20] MEDS: Insulin GLARGINE(*) 1 UNITS UNIT SUBCUT SCH (10:49)
[2017-08-20] MEDS ORDERED: KCL 10 MEQ/50 ML IVPREMIX* 10 MEQ/50 ML BAG IV SCH (11:00)
[2017-08-20] MEDS ORDERED: Dextrose 50% Syringe 50 ML* 25 GM/50 ML SYRINGE IV PUSH PRN (13:23)
[2017-08-20] MEDS: Insulin LISPRO* 1 UNITS UNIT SUBCUT SCH ×3 (14:30→21:07)
[2017-08-20 23:02] VITALS: BP 119/74
[2017-08-21] MEDS: Insulin LISPRO* 1 UNITS UNIT SUBCUT SCH ×3 (01:22→08:34)
[2017-08-21] MEDS: Heparin VIAL(*) 5000 UNITS/ML VIAL (FIVE THOUSAND) SUBCUT SCH (05:22)
[2017-08-21] MEDS: Omeprazole CAP* 20 MG PO SCH (05:22)
[2017-08-21] MEDS: fentaNYL Patch Check Q Shift 1 NOTE SCH (06:59)
[2017-08-21] MEDS: Ramipril CAP* 5 MG PO SCH (08:32)
[2017-08-21] MEDS: Metoprolol Succinate XL TAB* 25 MG PO SCH (08:32)
[2017-08-21] MEDS: Aspirin EC Low Dose* 81 MG TAB.EC PO SCH (08:32)
[2017-08-21] MEDS: Sucralfate TAB* 1 GM PO SCH (08:32)
[2017-08-21] MEDS: CMCS:Ranolazine (NF) 500 MG TAB PO SCH (08:32)
[2017-08-21] MEDS: Insulin GLARGINE(*) 1 UNITS UNIT SUBCUT SCH (10:23)
--- NOTE | 2017-08-22 10:14 | DS ---
CC: Dr. Saunders. DISCHARGE SUMMARY: DATE OF ADMISSION: 08/20/17 DATE OF DISCHARGE: 08/21/17 PRIMARY CARE PROVIDER: Dr. Saunders. DISCHARGE DIAGNOSES: 1. Recurrent nausea and vomiting, suspect cyclic vomiting syndrome secondary to dilated gastroparesi s, chronic marijuana use. 2. Starvation ketosis. 3. Chronically uncontrolled diabetes. SECONDARY DIAGNOSES: 1. Coronary artery disease, status post coronary artery bypass graft and percutaneous coronary inter vention. 2. Diabetes. 3. Diabetic gastroparesis. 4 . Diabetic neuropathy. 5. Hyperlipidemia. 6. Hypertension. 7. Chronic back pain. 8. Depression. MEDICATION LIST: 1. Metoprolol succinate 25 mg p.o. q.a.m. 2. Colace 100 mg p.o. daily. 3. Atorvastatin 20 mg p.o. q.a.m. 4. Aspirin 81 mg p.o. q.a.m. 5. Nitroglycerin patch 0.4 mg daily, 12 hours on and 12 hours off. 6. Zofran 4 mg p.o. daily. 7. Ranexa 1000 mg p.o. b.i.d. 8. Seroquel 50 mg p.o. at bedtime as needed for insomnia. 9. Ramipril 5 mg p.o. daily. 10. Fentanyl patch 50 micrograms topical q.72 hours. 11. Lantus insulin. The patient takes 20 units if glucose is less than 200 and 30 units if more yunier n 200. 12. Metoclopramide 10 mg p.o., a.c. and h.s. 13. NovoLog sliding scale with meals. 14. Protonix 40 mg p.o. q.a.m. HOSPITAL COURSE: Mr. Kaye is a 47-year-old male, known to me from multiple prior admissions, th at presented to the emergency room with intractable nausea and vomiting. For more details about his presentation, I refer you to his history and physical. After his last admission in April, the plan was for the patient to follow up with his PCP and Endocrinology for a possible insulin pump for kathy r glucose control and to also stop using marijuana as this was felt to be contributing to his symptom s. The patient did neither. He states that if his glucose is much lower than 200, he does not feel well and I explained that this happens because his glucose is chronically elevated and that he will c ertainly benefit from tighter glycemic control, not only regarding his nausea and vomiting, but also his coronary artery disease. The patient's hemoglobin A1c too elevated at 10.1 and he is not willing to change his diabetic regimen at this point. The patient received symptomatic treatment with significant improvement of his symptoms. The patient states that he stopped smoking marijuana for a week and although he did not have any epis odes of nausea and vomiting, he states that his back pain became unbearable. So, he started smoking again, not daily, but frequently during the week. He was encouraged to find a provider that prescrib es medical marijuana, but he states this is not covered by his insurance and he cannot afford it at t his time. On admission, the patient was found to be mildly acidotic with a bicarb of 17, and a lactic acid of 3 .9, with a sugar of 303. Initially, there was concern for DKA, but I believe he actually had starvat ion ketosis as he did not eat anything for 2 days due to his recurrent nausea and vomiting. The patient had resolution of his lactic acidosis and his symptoms. He was able to tolerate a solid diet with no other symptoms and he was felt to be medically stable to be discharged home. PHYSICAL EXAMINATION: Vital Signs: Temperature 97.5, heart rate 74, respiratory rate is 16, oxygen saturation 100% on room air, blood pressure 119/74. General: Patient is a pleasant, middle-aged male , sitting up in bed, in no acute distress. CVS: Normal S1 and S2. Regular rate and rhythm. Chest: Breath sounds present bilaterally, with no added sounds. Abdomen is soft, nontender, nondistended. Bowel sounds are present. Extremities: No edema. Neuro: He is alert, awake, and oriented x3. Abl e to move all 4 extremities. DIET: Heart healthy, consistent carb diet. ACTIVITY: As tolerated. DISPOSITION: To home. STATUS WHILE IN THE HOSPITAL: Inpatient. Please keep in mind this is a summarized version of the patient's hospital stay. If you need more inf ormation, please feel free to call me at [phone] or please obtain the full medical records. TIME SPENT: Approximately 45 minutes were spent to complete this discharge. [id number]/[facility] #: [id number]
== END 2017-08-21 10:52 | disposition home or self-care (01) ==
LOC: ED 19:07 → ICU 08-20 01:11 → INTOOBSV 08-20 01:11 → MED 08-20 15:28
PROVIDERS: ADMIT Pediatrics; ATTEND Internal Medicine
DX: R11.2 Nausea with vomiting, unspecified (principal); E88.89 Other specified metabolic disorders; E11.43 Type 2 diabetes mellitus with diabetic autonomic (poly)neuropathy; K31.84 Gastroparesis; T73.0XXA Starvation, initial encounter; X58.XXXA Exposure to other specified factors, initial encounter; R10.9 Unspecified abdominal pain; R07.9 Chest pain, unspecified; R06.02 Shortness of breath; I25.10 Atherosclerotic heart disease of native coronary artery without angina pectoris; Z95.1 Presence of aortocoronary bypass graft; Z79.4 Long term (current) use of insulin; Z79.82 Long term (current) use of aspirin; Z79.899 Other long term (current) drug therapy; Z88.1 Allergy status to other antibiotic agents; E87.6 Hypokalemia; K20.8 Other esophagitis; R94.31 Abnormal electrocardiogram [ECG] [EKG]
CPT/HCPCS: 36415; 74177; 80048; 80053; 80307; 81003; 82150; 83036; 83605; 83690; 83735; 84484; 85025; 85610; 85730; 86140; 87040; 93005; 96372; 96374; 96375; 96376; 99285; A9270-GY; G0378; J0780; J1644; J1815; J2270; J2405; J2765; J3360; J3480; Q9967

== ENCOUNTER 2017-10-18 14:37 | Observation (INO) | payer MEDICARE ==
[2017-10-18] MEDS ORDERED: Nitroglycerin TAB 0.4 MG* 0.4 MG TAB SL PRN (14:47)
[2017-10-18] MEDS ORDERED: Metoclopramide IV* 5 MG/ML 2 ML VIAL IV SLOW PU ONE (14:53)
[2017-10-18] MEDS ORDERED: NS 0.9% 1000 ML* 1,000 ML IV ONE ×2 (14:53→16:44)
[2017-10-18] MEDS ORDERED: Nitroglycerin TAB 0.4 MG* 0.4 MG TAB ONE (14:55)
[2017-10-18] MEDS: Al Hydrox/Mg Hydrox/Simet LIQ* 30 ML UDC PO ONE ×2 (15:00→15:38)
[2017-10-18] MEDS: Lidocaine 2% VISCOUS* 15 ML UDC PO ONE ×2 (15:00→15:38)
[2017-10-18 15:24] LABS: Hematocrit 46 % (42-52); Hemoglobin 15.9 g/dl (14.0-18.0); Mean Corpuscular HGB Conc 35 g/dl (31-36); Mean Corpuscular Hemoglobin 29 pg (27-31); Mean Corpuscular Volume 84 fL (80-94); Red Cell Distribution Width 13 % (10.5-15); White Blood Count 16.4 10^3/ul (3.5-10.8)
[2017-10-18 15:29] LABS: EGFR Non-African American 81.6 (>60)
--- NOTE | 2017-10-18 15:35 | RAD ---
Indication: Chest pain. Single frontal view of the chest performed at 1514 hours was reviewed. Comparison is made with previous exam dated April 22, 2017. No mediastinal shift is noted. Heart is of normal size and configuration. Lung root appear clear. IMPRESSION: NO ACTIVE CARDIOPULMONARY DISEASE IS NOTED.
[2017-10-18 15:53] LABS: ABS Basophils 0.1 10^3/ul (0-0.2); ABS Eosinophils 0 10^3/ul (0-0.6); ABS Lymphocytes 3.4 10^3/ul (1.0-4.8); ABS Monocytes 0.7 10^3/ul (0-0.8); ABS Neutrophils 12.2 10^3/ul (1.5-7.7); ABS Nucleated RBC 0 10^3/ul; Eosinophil % 0.2 % (0-6); Lymphocyte % 20.7 % (25-47); Mean Platelet Volume 9 um3 (7.4-10.4); Nucleated Red Blood Cells % 0.1; Platelet Count 263 10^3/ul (150-450)
[2017-10-18] MEDS ORDERED: Ondansetron INJ* 2 MG/ML VIAL IV ONE (16:04)
[2017-10-18] MEDS ORDERED: PROCHLORPERAZINE INJ 5 MG/ML 2 ML VIAL IV ONE (17:54)
[2017-10-18] MEDS ORDERED: Senna TAB PO PRN (20:20)
[2017-10-18] MEDS ORDERED: Al Hydrox/Mg Hydrox/Simet LIQ* 30 ML UDC PO PRN (20:20)
[2017-10-18] MEDS ORDERED: Docusate CAP* 100 MG PO PRN (20:20)
[2017-10-18] MEDS ORDERED: Ondansetron INJ* 2 MG/ML VIAL IV PRN (20:20)
[2017-10-18] MEDS ORDERED: Acetaminophen TAB* 325 MG PO PRN (20:20)
[2017-10-18] MEDS ORDERED: Pantoprazole IV* 40 MG IV ONE (20:29)
[2017-10-18] MEDS ORDERED: Metoclopramide IV* 5 MG/ML 2 ML VIAL IV PRN (20:29)
[2017-10-18] MEDS ORDERED: Dextrose 50% Syringe 50 ML* 25 GM/50 ML SYRINGE IV PUSH PRN (20:30)
[2017-10-18] MEDS ORDERED: QUEtiapine TAB* 25 MG PO PRN (20:32)
[2017-10-18] MEDS ORDERED: PROCHLORPERAZINE INJ 5 MG/ML 2 ML VIAL IV PRN (20:45)
[2017-10-18] MEDS ORDERED: Insulin GLARGINE(*) 1 UNITS UNIT SUBCUT SCH (21:00)
--- NOTE | 2017-10-18 21:04 | RAD ---
INDICATION: Abdominal pain. COMPARISON: Comparison is made with a prior CT of the abdomen and pelvis from August 19, 2017. TECHNIQUE: Frontal supine films of the abdomen were obtained. FINDINGS: There is a paucity of bowel gas limiting the study. There is no evidence for obstruction. Multiple surgical clips are noted in the right upper quadrant most consistent with a prior cholecystectomy. There are also surgical clips project in the left upper quadrant. Metallic leads project over the upper abdomen. IMPRESSION: NO EVIDENCE FOR OBSTRUCTION.
--- NOTE | 2017-10-18 21:54 | HP ---
HISTORY AND PHYSICAL: DATE OF ADMISSION: 10/18/17 TIME OF EVALUATION: 1999. PRIMARY CARE PHYSICIAN: Tito Saunders MD CHIEF COMPLAINT: Nausea, vomiting, and abdominal pain. HISTORY OF PRESENT ILLNESS: This is a 47-year-old male with a past medical history of poorly controlled diabetes, gastroparesis, chronic marijuana use and coronary artery disease, who presented to the emergency room with intractable nausea, vomiting that started today and unable to tolerate any p.o. The patient is complaining of epigastric pain. He states he has mild chest discomfort. No shortness of breath. He recently had a URI illness. No fevers. No changes in his bowels. Denies any changes. He is still taking marijuana 3 times a day. No change in how often he is using it. In regards to his diabetes, he states he does not check his blood sugars every day, when he does check it ranges around 200. He states he does not use his Lantus every day either. It is not entirely clear as to what medications he is taking at this time. He has uncomfortable and limited verbal interaction. In the emergency room, the patient had labs, imaging. He was given 2 L of normal saline, 10 mg of Compazine, Zofran 8 mg, Reglan 10 mg, a GI cocktail and was referred to the hospitalist service for further evaluation. He failed his p.o. challenge and proceeded to vomit after a trialing with water. PAST MEDICAL HISTORY: 1. Admission in August 2017 for suspected cyclic vomiting secondary to gastroparesis, chronic marijuana use. 2. Poorly controlled diabetes. 3. CAD status post coronary artery bypass graft and PCI. 4. Gastroparesis. 5. Neuropathy. 6. Hyperlipidemia. 7. Hypertension. 8. Chronic back pain. 9. Depression. 10. GERD. 11. Insomnia. PAST SURGICAL HISTORY: Coronary artery bypass graft in 2008, cholecystectomy in April 2017. MEDICATIONS: The patient provided a list which is different from the med rec that was confirmed. He is not entirely clear what he takes. The list as of May 2017 states; 1. Lantus 30 units in the morning. The patient states he does not take insulin regularly. 2. NovoLog sliding scale as needed. 3. Atorvastatin 80 mg in the morning. 4. Pantoprazole 40 mg q.a.m. 5. Aspirin 81 mg q.a.m. 6. Ramipril 5 mg q.a.m. 7. Zofran 4 mg in the morning. 8. Metoprolol succinate 25 mg q.a.m. 9. Ranexa 1000 mg p.o. b.i.d. 10. Colace 100 mg q.a.m. 11. Reglan 10 mg before each meal and at bedtime. 12. Sucralfate 1 g before each meal. 13. Seroquel 50 mg as needed at bedtime. 14. Fentanyl patch 50 mcg every 72 hours. 15. Nitroglycerin patch 0.4 mg as needed at night. 16. Nitroglycerin pills 0.4 mg as needed. ALLERGIES: ERYTHROMYCIN and CATS. FAMILY HISTORY: Positive for congestive heart failure in both parents, diabetes , hypertension, and hyperlipidemia. SOCIAL HISTORY: The patient lives at home with his , Sheldon, who is his healthcare proxy. He mentioned routine marijuana use 3 times a day. He quit smoking 30 years ago. No alcohol use or other illicit drug use. He is on disability secondary to his heart disease. CODE STATUS: Full code. REVIEW OF SYSTEMS: A 14-point review of systems as mentioned in the HPI, otherwise negative. PHYSICAL EXAMINATION GENERAL: No acute distress, mildly ill appearing. VITAL SIGNS: Temp 97.0, pulse rate 89, respiratory rate 13, oxygen saturation 98% on room air, and blood pressure 162/86. HEENT: Head normocephalic. Pupils are equal and reactive. Conjunctivae are injected. Oropharynx: Mucous membranes are dry. NECK: Supple. No lymphadenopathy. RESPIRATORY: Some faint rhonchi bilaterally. No increased work of breathing. No wheezing. Diminished breath sounds. CARDIAC: Regular rate and rhythm. Soft systolic murmur throughout. ABDOMEN: Positive bowel sounds. Significant tenderness in the epigastric upper quadrant region. Soft, nondistended. EXTREMITIES: No clubbing, cyanosis, or edema. +1 DP's. NEUROLOGIC: Alert and oriented x3. No focal neurologic deficits. DIAGNOSTIC STUDIES/LAB DATA: White count 16.4, hemoglobin 15.9, hematocrit 46 , platelets 263,000. Sodium 134, potassium 3.5, chloride 97, bicarb 20, anion gap of 17, BUN 13, creatinine of 0.98, glucose 331, lactic acid 3.8. Troponin is 0 x2. Chest x-ray: No active cardiopulmonary disease is noted. EKG is normal sinus rhythm. No significant ST changes. ASSESSMENT AND PLAN: This is a 47-year-old male with a past medical history of poorly controlled diabetes, gastroparesis, and chronic marijuana use with history of cyclic vomiting who presents to the emergency room with cyclic vomiting, intractable nausea that started today. 1. Intractable nausea, vomiting. Assessment: Multifactorial. The patient is a poorly controlled diabetic. He has a history of gastroparesis and he is using marijuana which can cause cyclic vomiting. His labs shows anion gap acidosis which I suspect is from ketosis. He has had elevated lactic acid suspected from his ketosis as well. Plan: He got 2 L of normal saline. We will continue IV fluids, antiemetics, place him on IV PPI for now. We will get an abdominal film to rule out any perforation with his significant abdominal tenderness, but I suspect it is all from persistent nausea, vomiting. We will get his sugars under better control. May benefit from a staff development educator and repeat his lactate in the morning and his labs in the morning. CHRONIC MEDICAL PROBLEMS: 1. Diabetes. Assessment: Poorly controlled. The patient does not check his sugars or take insulin daily. We will check a hemoglobin A1c, as mentioned may benefit from a staff development educator. We will place him back on his Lantus and lispro sliding scale. 2. Hyperlipidemia. Resume atorvastatin. 3. Gastroesophageal reflux disease. We will put him on PPI IV for now. Continue his sucralfate. 4. Coronary artery disease. Resume his cardiac medications as prescribed. 5. Chronic pain. Continue his fentanyl patch. 6. Insomnia. Continue Seroquel as needed. 7. FEN. We will place him on a clear liquid diet with IV fluids. 8. DVT prophylaxis. The patient scores moderate risk. Place him on heparin subcu t.i.d. 9. Code status. Full code. TIME SPENT: Greater than 60 minutes spent doing the history and physical, more than half the time was spent in direct patient contact. [id number]/[facility]PS #: [id number] HENRY
[2017-10-18] MEDS: NS 0.9% 1000 ML* 1,000 ML IV SCH (22:08)
[2017-10-18] MEDS: Sucralfate TAB* 1 GM PO SCH (22:52)
[2017-10-18] MEDS: CMC:Ranolazine (NF) 500 MG TAB PO SCH (22:53)
[2017-10-18] MEDS: Heparin VIAL(*) 5000 UNITS/ML VIAL (FIVE THOUSAND) SUBCUT SCH (22:54)
[2017-10-19] MEDS ORDERED: fentaNYL PATCH 50 MCG/HR TRANSDERM SCH (03:30)
[2017-10-19] MEDS: Heparin VIAL(*) 5000 UNITS/ML VIAL (FIVE THOUSAND) SUBCUT SCH ×2 (05:39→15:36)
[2017-10-19] MEDS ORDERED: fentaNYL Patch Check Q Shift 1 NOTE SCH (07:00)
[2017-10-19 07:05] LABS: ABS Basophils 0 10^3/ul (0-0.2); ABS Eosinophils 0 10^3/ul (0-0.6); ABS Lymphocytes 2.1 10^3/ul (1.0-4.8); ABS Monocytes 0.8 10^3/ul (0-0.8); ABS Nucleated RBC 0 10^3/ul; Eosinophil % 0 % (0-6); Hematocrit 46 % (42-52); Mean Corpuscular HGB Conc 35 g/dl (31-36); Mean Corpuscular Hemoglobin 29 pg (27-31); Mean Corpuscular Volume 85 fL (80-94); Mean Platelet Volume 8 um3 (7.4-10.4); Nucleated Red Blood Cells % 0.1; Platelet Count 253 10^3/ul (150-450); Red Blood Count 5.46 10^6/ul (4.0-5.4); Red Cell Distribution Width 13 % (10.5-15)
[2017-10-19 07:21] LABS: EGFR Non-African American 98.9 (>60)
[2017-10-19 08:12] VITALS: BP 126/78
[2017-10-19] MEDS ORDERED: Ramipril CAP* 5 MG PO SCH (09:00)
[2017-10-19] MEDS ORDERED: Aspirin EC Low Dose* 81 MG TAB.EC PO SCH (09:00)
[2017-10-19] MEDS ORDERED: Metoprolol Succinate XL TAB* 25 MG PO SCH (09:00)
[2017-10-19] MEDS: Insulin LISPRO* 1 UNITS UNIT SUBCUT SCH ×2 (09:46→12:28)
[2017-10-19] MEDS: Metoclopramide IV* 5 MG/ML 2 ML VIAL IV SCH ×2 (09:47→12:28)
[2017-10-19] MEDS: Sucralfate TAB* 1 GM PO SCH ×2 (09:47→15:36)
[2017-10-19] MEDS: NS 0.9% 1000 ML* 1,000 ML IV SCH (09:57)
[2017-10-19] MEDS: CMC:Ranolazine (NF) 500 MG TAB PO SCH (10:25)
[2017-10-19] MEDS ORDERED: Atorvastatin* 80 MG TAB PO SCH (17:00)
[2017-10-19] MEDS ORDERED: Nitroglycerin 0.4 MG/HR PATCH* (10 MG) TRANSDERM SCH (18:00)
[2017-10-19] MEDS ORDERED: Pantoprazole IV* 40 MG IV SCH (21:00)
--- NOTE | 2017-10-20 07:15 | DS ---
CC: Dr. Saunders * DISCHARGE SUMMARY: DATE OF ADMISSION: 10/18/17 DATE OF DISCHARGE: 10/19/17 PRIMARY CARE PROVIDER: Dr. Saunders. DISCHARGE DIAGNOSES: 1. Intractable nausea, vomiting, as well as dehydration and subsequent starvation ketosis due to likely gastroparesis. Chronic marijuana use may be a contributing factor. 2. Uncontrolled diabetes due to medication noncompliance. SECONDARY DIAGNOSES: 1. History of recurrent nausea and vomiting admissions due to gastroparesis. 2. History of chronic marijuana use. 3. Diabetes, insulin dependent, poorly controlled. 4. History of coronary artery disease status post bypass in the past. 5. Neuropathy. 6. Hyperlipidemia. 7. Hypertension. 8. Chronic back pain. 9. Depression. 10. Gastroesophageal reflux disease. 11. Insomnia. MEDICATIONS AT DISCHARGE: Are unchanged from admission, apart from that the patient's Seroquel was discontinued due to interaction with Reglan, and those include: 1. Aspirin 81 mg daily. 2. Lipitor 20 mg daily. 3. Fentanyl patch 50 mcg every 72 hours. 4. Insulin lispro sliding scale. 5. Reglan 10 mg a.c. and h.s. 6. Metoprolol succinate 25 mg daily. 7. Nitroglycerin patch 0.4 mg. 8. Zofran 8 mg b.i.d. p.r.n. 9. Protonix 40 mg daily. 10. Ramipril 5 mg daily. 11. Ranexa 1000 mg b.i.d. 12. Carafate 1 g 3 times a day. 13. Insulin Lantus 30 units daily. LABORATORY DATA AT DISCHARGE: Included: On 10/19/17, sodium of 135, potassium 3.8, chloride 101, carbon dioxide 22, BUN 10, creatinine 0.83. White blood cell count 13.0, hemoglobin 16.0, hematocrit 46, and platelets 163. PHYSICAL EXAMINATION: At the time of discharge, blood pressure of 126/78, heart rate of 99 and regular, respiratory rate 16, oxygen saturation 97% on room air, temperature 98.3. General: The patient is a very pleasant 47-year- old male who is in no acute distress. Alert, awake, and oriented x3. HEENT: Head: Atraumatic, normocephalic. Eyes: Pupils are equal, reactive to light and accommodation. Oropharynx is clear. Mucosa moist. Neck: Supple. No JVD. No bruits bilaterally. Cardiovascular: Regular rate and rhythm. No murmur. Respiratory: Clear to auscultation bilaterally. Abdomen: Soft, nontender. Bowel sounds are present in all 4 quadrants. Extremities: There is no edema. Pulses are +2 bilaterally. No clubbing or cyanosis. Neuro Evaluation : Speech is clear. Cranial nerves II through XII grossly intact. Motor strength is 5/5 bilaterally. HOSPITALIZATION COURSE: Bird Gonzalez is a 47-year-old male with history of uncontrolled diabetes who states himself that he does not like to take insulin and check his glucose levels. He is hoping that after he goes for his appointment in mid October to [facility], he will be able to utilize an insulin pump and that will solve all his problems. Unfortunately, the patient was not aware that person with insulin pump needs to be really compliant with the treatment. Nevertheless, he has history of frequent hospitalizations for intractable nausea , vomiting due to gastroparesis. He also has a chronic marijuana use which could contribute to periodic nausea and vomiting. He presented to the emergency department complaining of not eating for 2 days with lactic acid elevation and intractable nausea and vomiting. He was observed overnight and his symptoms improved. He had a full meal by the time of prior to discharge and he is ready to go home. At discharge, the patient will be recommended to be compliant with his medications, try to stop smoking that much marijuana. He is also to follow up with his primary care provider in approximately 4 to 7 days and with [facility] as previously scheduled. Please note that this is a short summary of the patient's hospitalization. Please refer to further medical records for details. TIME SPENT: Approximately 35 minutes was spent on the patient's discharge. [id number]/[facility] #: [id number] HENRY
--- NOTE | 2017-10-23 14:28 | ED ---
Armando Flanagan Stephanie, scribed for Dennis Kelly MD on 10/18/17 at 1458 . HPI Chest Pain - HPI Summary HPI Summary: The pt is a 47 y/o M BIBA to the ED with c/o CP that began yesterday at 12:00. Symptoms include nausea, vomiting (20x since onset), heart burn and abd pain. The pt denies back and shoulder pain. CP is constant and is rated as an 8 in severity. The pt takes fentanyl and medical marijuana for chronic back pain management. - History of Current Complaint Time Seen by Provider: 10/18/17 14:44 Hx Obtained From: Patient Onset/Duration: Started Days Ago - 1, Resolved, Worse Since - this morning Timing: Constant Current Severity: Severe Pain Intensity: 8 Pain Scale Used: 0-10 Numeric Chest Pain Location: Mid Sternal Chest Pain Radiates: Yes Chest Pain Radiates To:: Epigastric Aggravating Factor(s): Nothing Alleviating Factor(s): Nothing Associated Signs and Symptoms: Positive: Chest Pain, Nausea, Abdominal Pain, Vomiting, Other: - "heart burn" - Additional Pertinent History Primary Care Physician: [id number] - Allergy/Home Medications Allergies/Adverse Reactions: Allergies Allergy/AdvReac Type Severity Reaction Status Date / Time MS Erythromycin AdvReac Intermediate Nausea And Verified 09/01/17 14:09 [Erythromycin] Vomiting CATS Allergy Eyes Uncoded 08/19/17 19:21 Itchy/Swollen/Red/Watery Home Medications: Home Medications Insulin LISPRO* [HumaLOG*] 0 - 45 units SUBCUT DIRECTED MDD 45 units [History Confirmed 10/18/17] Nitroglycerin TAB 0.4 MG* 0.4 mg SL Q5M PRN 10/18/17 [History Confirmed 10/18/17 ] QUEtiapine TAB* [SEROquel TAB*] 25 mg PO BEDTIME PRN 10/18/17 [History Confirmed 10/18/17] Sucralfate TAB* [Carafate*] 1 gm PO TID 10/18/17 [History Confirmed 10/18/17] PMH/Surg Hx/FS Hx/Imm Hx Endocrine/Hematology History: Reports: Hx Diabetes - TYPE 2 Denies: Hx Thyroid Disease Cardiovascular History: Reports: Hx Angina, Hx Coronary Artery Disease, Hx Hypercholesterolemia, Hx Hypertension - CONTROLLED WITH MEDS, Hx Myocardial Infarction, Other Cardiovascular Problems/Disorders - CARDIAC STENTS. CABG. HLD Denies: Hx Congestive Heart Failure, Hx Pacemaker/ICD, Hx Valvular Heart Disease Respiratory History: Denies: Hx Asthma, Hx Chronic Obstructive Pulmonary Disease (COPD) GI History: Reports: Hx Gall Bladder Disease - Removed. 05/04/17, Hx Gastroesophageal Reflux Disease - GASTROPARESIS, Other GI Disorders - GALLSTONES Denies: Hx Ulcer History: Denies: Hx Dialysis, Hx Renal Disease Musculoskeletal History: Reports: Hx Arthritis - hips and back, Hx Back Problems , Hx Bursitis - SHOULDERS, Other Musculoskeletal History - Degenerative joint disease, chronic lower back pain. hx OF OSTEOMYLITIS Sensory History: Reports: Hx Contacts or Glasses - Glasses Denies: Hx Hearing Aid Opthamlomology History: Reports: Hx Contacts or Glasses - Glasses Neurological History: Reports: Hx Migraine - OCCASSIONALY PER PT REPORT 1-2x per year, Other Neuro Impairments/Disorders - young's palsy, PAIN CLINIC PATIENT Psychiatric History: Reports: Hx Anxiety, Hx Depression, Hx Panic Disorder - does ok with mri foot, Hx Bipolar Disorder - Cancer History Hx Chemotherapy: No - Surgical History Surgery Procedure, Year, and Place: 2009 triple heart bypass;. 2008 cardiac cath no stents;. CARDIAC CATH 2 stents placed March 2014 at [facility] [place] Apr; Hx Anesthesia Reactions: No - Immunization History Date of Tetanus Vaccine: up to date per pt Date of Influenza Vaccine: Infectious Disease History: No Infectious Disease History: Reports: History Other Infectious Disease - spinal meningitis Denies: Hx Clostridium Difficile, Hx Hepatitis, Hx Human Immunodeficiency Virus (HIV), Hx of Known/Suspected MRSA, Hx Shingles, Hx Tuberculosis, Hx Known/ Suspected VRE, Hx Known/Suspected VRSA, Traveled Outside the [place] in Last 30 Days - Family History Known Family History: Positive: Cardiac Disease - [place] - mother & father, Hypertension, Diabetes - Social History Occupation: Unemployed Lives: With Family Alcohol Use: None Alcohol Amount: 1-2 beers per week Hx Substance Use: No Substance Use Type: Reports: Marijuana Substance Use Comment - Amount & Last Used: "couple days ago" Hx Tobacco Use: Yes Smoking Status (MU): Former Smoker Type: Smokeless Tobacco Amount Used/How Often: Chews one tin per week Length of Time of Smoking/Using Tobacco: 4 years Have You Smoked in the Last Year: No Review of Systems Negative: Fever, Chills Negative: Erythema Negative: Sore Throat Positive: Chest Pain, Other - "heart burn" Negative: Shortness Of Breath, Cough Positive: Abdominal Pain, Vomiting, Nausea Negative: dysuria, hematuria Positive: Other - Negative: back pain, shoulder pain. Negative: Myalgia, Edema Negative: Rash Neurological: Other - Negative: dizziness All Other Systems Reviewed And Are Negative: Yes Physical Exam - Summary Physical Exam Summary: Constitutional: Well-developed, Well-nourished, Alert, Pt is moaning in pain Skin: Warm, Dry HENT: Normocephalic; Atraumatic Eyes: Conjunctiva normal Neck: Musculoskeletal ROM normal neck. (-) JVD, (-) Stridor, (-) Tracheal deviation Cardio: Rhythm regular, rate normal, Heart sounds normal; Intact distal pulses; The pedal pulses are 2+ and symmetric. Radial pulses are 2+ and symmetric. (-) Murmur Pulmonary/Chest wall: Effort normal. (-) Respiratory distress, (-) Wheezes, (-) Rales Abd: epigastric tenderness, (-) Distension, (-) Guarding, (-) Rebound Musculoskeletal: (-) Edema Lymph: (-) Cervical adenopathy Neuro: Alert, Oriented x3 Psych: Mood and affect Normal Triage Information Reviewed: Yes Vital Signs On Initial Exam: Initial Vitals Temp Pulse Resp BP Pulse Ox 97.0 F 71 25 131/79 100 10/18/17 14:43 10/18/17 14:43 10/18/17 14:43 10/18/17 14:43 10/18/17 14:43 Vital Signs Reviewed: Yes Diagnostics - Vital Signs Vital Signs Temp Pulse Resp BP Pulse Ox 10/18/17 14:43 97.0 F 71 25 131/79 100 - Laboratory Result Diagrams: 10/18/17 15:04 10/18/17 15:04 Lab Statement: Any lab studies that have been ordered have been reviewed, and results considered in the medical decision making process. - Radiology CXR Xray Interpretation: No Acute Changes Radiology Interpretation Completed By: Radiologist - NO ACTIVE CARDIOPULMONARY DISEASE IS NOTED. - EKG 14:49 Cardiac Rate: NL EKG Rhythm: Sinus Rhythm - 71 BPM EKG Interpretation: No STEMI Chest Pain Course/Dx - Course Course Of Treatment: Pt is vomiting refractory to multiple IV agents. Labs are consistent with starvation and ketosis secondary to vomiting. accepts the pt for admission. - Diagnoses Provider Diagnoses: Gastroparesis, ketosis due to starvation, Marijuana abuse Discharge - Discharge Plan Condition: Stable Disposition: ADMITTED TO [facility] Patient Education Materials: Gastroparesis (ED) Referrals: Nicky DIXON,Tito Castillo [Primary Care Provider] - The documentation as recorded by the Armando shore Stephanie accurately reflects the service I personally performed and the decisions made by Leticia cruz Jerry, MD.
== END 2017-10-19 16:00 | disposition home or self-care (01) ==
LOC: ED 14:37 → INTOOBSV 20:20 → MED 20:20
PROVIDERS: ADMIT Pediatrics; ATTEND Internal Medicine
DX: R11.2 Nausea with vomiting, unspecified (principal); E11.65 Type 2 diabetes mellitus with hyperglycemia; G62.9 Polyneuropathy, unspecified; E78.5 Hyperlipidemia, unspecified; I10 Essential (primary) hypertension; M54.9 Dorsalgia, unspecified; F32.9 Major depressive disorder, single episode, unspecified; K21.9 Gastro-esophageal reflux disease without esophagitis; G47.00 Insomnia, unspecified; Z79.82 Long term (current) use of aspirin; F12.90 Cannabis use, unspecified, uncomplicated; E88.89 Other specified metabolic disorders; I25.10 Atherosclerotic heart disease of native coronary artery without angina pectoris; Z95.1 Presence of aortocoronary bypass graft; Z91.14 Patient's other noncompliance with medication regimen; Z79.4 Long term (current) use of insulin
CPT/HCPCS: 36415; 71045; 74018; 80048; 80053; 82803; 83036; 83605; 84443; 84484; 85025; 93005; 99285; A9270-GY; G0378; J0780; J1644; J2405; J2765

== ENCOUNTER 2017-10-20 20:45 | Inpatient (IN) | payer MEDICARE ==
[2017-10-20] MEDS ORDERED: Aspirin Low Dose CHEW TAB* 81 MG PO ONE (21:07)
[2017-10-20] MEDS ORDERED: Al Hydrox/Mg Hydrox/Simet LIQ* 30 ML UDC PO ONE (21:07)
[2017-10-20] MEDS ORDERED: Lidocaine 2% VISCOUS* 15 ML UDC PO ONE (21:07)
[2017-10-20] MEDS ORDERED: Metoclopramide IV* 5 MG/ML 2 ML VIAL IV ONE (21:26)
[2017-10-20 21:47] LABS: ABS Basophils 0 10^3/ul (0-0.2); ABS Eosinophils 0.1 10^3/ul (0-0.6); ABS Lymphocytes 2.1 10^3/ul (1.0-4.8); ABS Monocytes 1.3 10^3/ul (0-0.8); ABS Neutrophils 15.3 10^3/ul (1.5-7.7); ABS Nucleated RBC 0 10^3/ul; Eosinophil % 0.4 % (0-6); Hematocrit 42 % (42-52); Hemoglobin 14.7 g/dl (14.0-18.0); Mean Corpuscular HGB Conc 35 g/dl (31-36); Mean Corpuscular Hemoglobin 30 pg (27-31); Mean Corpuscular Volume 84 fL (80-94); Mean Platelet Volume 8 um3 (7.4-10.4); Nucleated Red Blood Cells % 0; Platelet Count 249 10^3/ul (150-450); Red Blood Count 4.97 10^6/ul (4.0-5.4); Red Cell Distribution Width 13 % (10.5-15); White Blood Count 18.7 10^3/ul (3.5-10.8)
--- NOTE | 2017-10-20 21:58 | RAD ---
INDICATION: Chest pain. COMPARISON: Comparison is made with a prior study from October 18, 2017. TECHNIQUE: A portable view of the chest was obtained. FINDINGS: The patient is status post coronary artery bypass surgery. Note is made of multiple sternal sutures. The heart is moderately enlarged and unchanged. The lungs are underinflated and clear. No pleural effusion is seen. IMPRESSION: NO EVIDENCE FOR ACUTE FINDING.
[2017-10-20 21:59] LABS: INR 0.94 (0.77-1.02)
[2017-10-20 22:01] LABS: EGFR Non-African American 78.8 (>60)
[2017-10-20] MEDS ORDERED: Iohexol 300* (CONTRAST) 10 ML SDV IV ONE (22:23)
[2017-10-20] MEDS ORDERED: Heparin DRIP 25,000 UNITS(*) 25,000 UNITS/500 ML BAG IVPB SCH (22:30)
[2017-10-20 22:41] LABS: Hematocrit 44 % (42-52); Hemoglobin 15.3 g/dl (14.0-18.0); Mean Corpuscular HGB Conc 35 g/dl (31-36); Mean Corpuscular Hemoglobin 29 pg (27-31); Mean Corpuscular Volume 85 fL (80-94); Mean Platelet Volume 8 um3 (7.4-10.4); Platelet Count 255 10^3/ul (150-450); Red Blood Count 5.24 10^6/ul (4.0-5.4); Red Cell Distribution Width 13 % (10.5-15); White Blood Count 19.6 10^3/ul (3.5-10.8)
[2017-10-20] MEDS ORDERED: fentaNYL* 50 MCG/ML 2 ML VIAL (100 MCG VIAL) ONE (22:48)
[2017-10-20] MEDS ORDERED: Heparin 2 UNITS/ML IVPREMIX* 3,000 ML IV ONE (22:49)
[2017-10-20] MEDS ORDERED: Iohexol 350 (CONTRAST) 200 ML MDV IV ONE (22:49)
[2017-10-20] MEDS ORDERED: Midazolam* 1 MG/ML 10 ML VIAL (10 MG) ONE (22:49)
[2017-10-20] MEDS ORDERED: nitroGLYCERIN DRIP* 0 MCG/0 ML BTL ONE ×2 (22:49→23:36)
[2017-10-20] MEDS ORDERED: Lidocaine 1% INJ* 10 MG/ML 30 ML SDV ONE (22:49)
[2017-10-20] MEDS ORDERED: Heparin(*) 1000 UNIT/ML 10 ML VIAL CATH LAB IV ONE (22:50)
[2017-10-20 22:57] LABS: EGFR Non-African American 81.6 (>60); INR 0.91 (0.77-1.02)
[2017-10-20] MEDS ORDERED: Heparin for STEMI(*) 5,000 UNITS/ML 1 ML VIAL IV ONE (22:57)
[2017-10-20] MEDS ORDERED: VERAPAMIL 2.5 MG/ML 2 ML VIAL ** 5 mg/2 ml ONE (22:57)
[2017-10-20 23:00] LABS: ABS Basophils 0 10^3/ul (0-0.2); ABS Eosinophils 0 10^3/ul (0-0.6); ABS Lymphocytes 1.8 10^3/ul (1.0-4.8); ABS Monocytes 1.2 10^3/ul (0-0.8); ABS Neutrophils 16.4 10^3/ul (1.5-7.7); ABS Nucleated RBC 0 10^3/ul; Eosinophil % 0.2 % (0-6); Lymphocyte % 9.3 % (25-47); Nucleated Red Blood Cells % 0.1
[2017-10-20] MEDS ORDERED: Heparin VIAL(*) 5000 UNITS/ML VIAL (FIVE THOUSAND) IV SCH ×2 (23:00)
[2017-10-20] MEDS ORDERED: Ticagrelor* 90 MG TAB PO ONE ×2 (23:05→23:09)
[2017-10-20] MEDS ORDERED: Ondansetron INJ* 2 MG/ML VIAL ONE ×2 (23:10→23:38)
[2017-10-21] MEDS ORDERED: nitroGLYCERIN DRIP* 25,000 MCG/250 ML BTL IV SCH (00:42)
[2017-10-21] MEDS ORDERED: Metoclopramide IV* 5 MG/ML 2 ML VIAL ONE (00:58)
[2017-10-21] MEDS ORDERED: Bivalirudin(*) 250 MG VIAL ONE (01:00)
[2017-10-21] MEDS ORDERED: NS 0.9% 1000 ML* 1,000 ML IV SCH (01:00)
[2017-10-21] MEDS ORDERED: Metoclopramide IV* 5 MG/ML 2 ML VIAL IV ONE (01:10)
[2017-10-21 01:21] LABS: Hematocrit 40 % (42-52); Hemoglobin 13.9 g/dl (14.0-18.0); Mean Corpuscular HGB Conc 35 g/dl (31-36); Mean Corpuscular Hemoglobin 29 pg (27-31); Mean Corpuscular Volume 84 fL (80-94); Mean Platelet Volume 8 um3 (7.4-10.4); Platelet Count 221 10^3/ul (150-450); Red Blood Count 4.79 10^6/ul (4.0-5.4); Red Cell Distribution Width 13 % (10.5-15); White Blood Count 14.7 10^3/ul (3.5-10.8)
[2017-10-21 01:35] LABS: EGFR Non-African American 88.9 (>60)
[2017-10-21] MEDS ORDERED: Morphine INJ* 2 MG/ML 1 ML CARPUJECT IV PRN (02:12)
--- NOTE | 2017-10-21 02:13 | PN ---
Progress Note - Progress Note Date of Service: 10/21/17 Note: .
[2017-10-21] MEDS: Pantoprazole IV* 80 MG in NS 0.9% 250 ML* 250 ML IVPB SCH ×2 (02:24→14:43)
[2017-10-21] MEDS: HYDROmorphone INJ* 2 MG/ML CARPUJECT SYRINGE IV PRN ×2 (04:51→07:21)
--- NOTE | 2017-10-21 06:24 | CONSULT ---
Consult Consult: PCP: Chayito Saunders MD Date/Time: 10/21/2017 0030 Reason for Consult: diabetic management, abdominal pain evaluation/management, & general medical management HPI: Mr Kaye is a 47YO male HX poorly controlled DM, recurrent ACS/CABG, HTN, & chronic abdominal pain/N/V 2nd gastroparesis who was discharged 2017 after overnight observation for an episode of cyclic vomiting syndrome thought to be contributed to by chronic marijuana use. During that stay he received 3 negative troponins. He presents tonight with rapid onset ~2000 of severe chest pressure and abdominal pain associated with N/V, sweats, & SOB, but no palpitations or light-headedness. ECG had non-diagnostic ST elevation in III/AVF. Troponin was 7.23 with elevated MB index of 10.5% for which a STEMI was called. A circumflex dissection was discovered on cardiac cath requiring 2 drug eluting stents. 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 After cardiac cath, he continued to report unchanged abdomen & chest discomfort although clinically appeared more comfortable. He was returned to ICU where further stabilization occurred prior to obtaining an unremarkable CT abd/pel WO. Case was reviewed with Hattie Gamble MD critical care who agreed with plan for pain control, PPI, & metoclopramide. PMedHx DM, poorly controlled w/ gastroparesis & neuropathy CAD/AK/CABG/stent HTN HLD chronic LBP depression insomnia GERD Ambulatory Orders Ramipril CAP* [Altace CAP*] 5 mg PO DAILY 10/02/14 Aspirin EC Low Dose* [Ecotrin EC Low Dose 81 MG*] 81 mg PO QAM 04/08/15 Metoprolol Succinate XL TAB* [Toprol XL TAB*] 25 mg PO QAM 08/09/16 Nitroglycerin 0.4 MG/HR PATCH* [Nitroglycerin 10 MG PATCH*] 1 patch TRANSDERM QPM 08/09/16 fentaNYL PATCH 50 MCG/HR* [Duragesic PATCH 50 Mcg/Hr*] 50 mcg TRANSDERM Q48HR 10/21/16 Ranolazine (Nf) [Ranexa] 1,000 mg PO BID 04/25/17 Atorvastatin* [Lipitor 80 MG*] 20 mg PO QAM 04/28/17 Metoclopramide TAB* [Reglan TAB*] 10 mg PO ACHS #120 tab 05/13/17 Pantoprazole TAB (NF) [Protonix TAB (NF)] 40 mg PO QAM #30 tab 05/13/17 Ondansetron TAB* [Zofran 4 MG Tab*] 8 mg PO BID PRN 08/20/17 Insulin LISPRO* [HumaLOG*] 0 - 45 units SUBCUT DIRECTED MDD 45 units Nitroglycerin TAB 0.4 MG* 0.4 mg SL Q5M PRN 10/18/17 Sucralfate TAB* [Carafate*] 1 gm PO TID 10/18/17 Insulin GLARGINE(*) [Lantus(*)] 30 units SUBCUT QAM 10/20/17 Allergies MS Erythromycin [Erythromycin] Adverse Reaction (Intermediate, Verified 20:49) Nausea And Vomiting CATS Allergy (Uncoded 10/20/17 20:49) Eyes Itchy/Swollen/Red/Watery PSurgHx CABG cholecystectomy SocHx: quit tobacco ~30 years ago, marijuana smoker 3x daily, denies alcohol and other recreational drugs; lives with his ; full code status FamHx: positive for CHF, HTN, HLD, & DM ROS: as above, otherwise reviewed and all were negative vitals: Vital Signs Temp 37.1 C 10/21/17 03:53 Pulse 80 10/21/17 05:24 Resp 16 10/21/17 05:24 BP 151/85 10/21/17 05:00 Pulse Ox 92 10/21/17 05:24 Intake & Output 10/20/17 10/20/17 10/21/17 11:59 23:59 11:59 Weight 90.718 kg 88.9 kg Constitutional: NAD, normally developed, overweight white male HEENM: atraumatic; sclera/conjunctiva: anicteric/clear; hearing: clinically intact; oropharynx: clear, mucosa moist Neck: soft tissue: non-tender; thyroid: normal Pulmonary: clear to auscultation bilaterally, fair to good aeration, no accessory muscle use CV: RR/RR, normal S1S2, no carotid bruit, no jugular venous distention, 2+ B DP/ PT, no edema Abdominal: soft, non-distended, mild to moderate diffuse tenderness worst in the hypogastrum with voluntary guarding but no rebound/rigidity, normoactive bowel sounds, no hyper-tympany, no hepatosplenomegaly or masses, no costovertebral angle tenderness Musculoskeletal: general: grossly intact, no tenderness w/ palpation Integumental: normal appearance and texture of exposed skin Psychiatric orientation: AA&O to PPS affect: calm mood: cooperative eye contact: fair content: reliable responses: timely insight: fair Testing: Lab Results 10/20/17 10/20/17 10/20/17 Range/Units 21:35 21:35 21:35 WBC 18.7 H (3.5-10.8) 10^3/ul RBC 4.97 (4.0-5.4) 10^6/ul Hgb 14.7 (14.0-18.0) g/dl Hct 42 (42-52) % MCV 84 (80-94) fL MCH 30 (27-31) pg MCHC 35 (31-36) g/dl RDW 13 (10.5-15) % Plt Count 249 (150-450) 10^3/ul MPV 8 (7.4-10.4) um3 Neut % (Auto) 81.5 (38-83) % Lymph % (Auto) 11.0 L (25-47) % Harrison % (Auto) 6.9 (1-9) % Eos % (Auto) 0.4 (0-6) % Baso % (Auto) 0.2 (0-2) % Absolute Neuts (auto) 15.3 H (1.5-7.7) 10^3/ul Absolute Lymphs (auto) 2.1 (1.0-4.8) 10^3/ul Absolute Monos (auto) 1.3 H (0-0.8) 10^3/ul Absolute Eos (auto) 0.1 (0-0.6) 10^3/ul Absolute Basos (auto) 0 (0-0.2) 10^3/ul Absolute Nucleated RBC 0 10^3/ul Nucleated RBC % 0 INR (Anticoag Therapy) (0.77-1.02) APTT (26.0-36.3) seconds Sodium 136 (133-145) mmol/L Potassium 3.5 (3.5-5.0) mmol/L Chloride 102 (101-111) mmol/L Carbon Dioxide 24 (22-32) mmol/L Anion Gap 10 (2-11) mmol/L BUN 14 (6-24) mg/dL Creatinine 1.01 (0.67-1.17) mg/dL Est GFR ( Amer) 101.4 (>60) Est GFR (Non-Af Amer) 78.8 (>60) BUN/Creatinine Ratio 13.9 (8-20) Glucose 191 H (70-100) mg/dL Lactic Acid 3.2 H* (0.5-2.0) mmol/L Calcium 9.4 (8.6-10.3) mg/dL Magnesium 2.1 (1.9-2.7) mg/dL Total Bilirubin 0.60 (0.2-1.0) mg/dL AST 45 H (13-39) U/L ALT 18 (7-52) U/L Alkaline Phosphatase 85 (34-104) U/L Total Creatine Kinase (10-223) U/L CK-MB (CK-2) (0.6-6.3) ng/mL Myoglobin (17.4-105.7) ng/mL Troponin I 7.23 H* (<0.04) ng/mL B-Natriuretic Peptide ( - 100) pg/mL Total Protein 7.1 (6.4-8.9) g/dL Albumin 4.1 (3.2-5.2) g/dL Globulin 3.0 (2-4) g/dL Albumin/Globulin Ratio 1.4 (1-3) LDL Cholesterol Direct mg/dL 10/20/17 10/20/17 10/20/17 Range/Units 21:35 22:29 22:29 WBC 19.6 H (3.5-10.8) 10^3/ul RBC 5.24 (4.0-5.4) 10^6/ul Hgb 15.3 (14.0-18.0) g/dl Hct 44 (42-52) % MCV 85 (80-94) fL MCH 29 (27-31) pg MCHC 35 (31-36) g/dl RDW 13 (10.5-15) % Plt Count 255 (150-450) 10^3/ul MPV 8 (7.4-10.4) um3 Neut % (Auto) 84.1 H (38-83) % Lymph % (Auto) 9.3 L (25-47) % Harrison % (Auto) 6.2 (1-9) % Eos % (Auto) 0.2 (0-6) % Baso % (Auto) 0.2 (0-2) % Absolute Neuts (auto) 16.4 H (1.5-7.7) 10^3/ul Absolute Lymphs (auto) 1.8 (1.0-4.8) 10^3/ul Absolute Monos (auto) 1.2 H (0-0.8) 10^3/ul Absolute Eos (auto) 0 (0-0.6) 10^3/ul Absolute Basos (auto) 0 (0-0.2) 10^3/ul Absolute Nucleated RBC 0 10^3/ul Nucleated RBC % 0.1 INR (Anticoag Therapy) 0.94 (0.77-1.02) APTT (26.0-36.3) seconds Sodium 137 (133-145) mmol/L Potassium 3.7 (3.5-5.0) mmol/L Chloride 102 (101-111) mmol/L Carbon Dioxide 23 (22-32) mmol/L Anion Gap 12 H (2-11) mmol/L BUN 14 (6-24) mg/dL Creatinine 0.98 (0.67-1.17) mg/dL Est GFR ( Amer) 105.0 (>60) Est GFR (Non-Af Amer) 81.6 (>60) BUN/Creatinine Ratio 14.3 (8-20) Glucose 196 H (70-100) mg/dL Lactic Acid (0.5-2.0) mmol/L Calcium 9.5 (8.6-10.3) mg/dL Magnesium (1.9-2.7) mg/dL Total Bilirubin 0.70 (0.2-1.0) mg/dL AST 43 H (13-39) U/L ALT 19 (7-52) U/L Alkaline Phosphatase 77 (34-104) U/L Total Creatine Kinase 294 H (10-223) U/L CK-MB (CK-2) 31.4 H (0.6-6.3) ng/mL Myoglobin 61.1 (17.4-105.7) ng/mL Troponin I 8.49 H* (<0.04) ng/mL B-Natriuretic Peptide ( - 100) pg/mL Total Protein 7.3 (6.4-8.9) g/dL Albumin 4.2 (3.2-5.2) g/dL Globulin 3.1 (2-4) g/dL Albumin/Globulin Ratio 1.4 (1-3) LDL Cholesterol Direct 160 mg/dL 10/20/17 10/20/17 10/21/17 Range/Units 22:29 22:29 01:15 WBC (3.5-10.8) 10^3/ul RBC (4.0-5.4) 10^6/ul Hgb (14.0-18.0) g/dl Hct (42-52) % MCV (80-94) fL MCH (27-31) pg MCHC (31-36) g/dl RDW (10.5-15) % Plt Count (150-450) 10^3/ul MPV (7.4-10.4) um3 Neut % (Auto) (38-83) % Lymph % (Auto) (25-47) % Harrison % (Auto) (1-9) % Eos % (Auto) (0-6) % Baso % (Auto) (0-2) % Absolute Neuts (auto) (1.5-7.7) 10^3/ul Absolute Lymphs (auto) (1.0-4.8) 10^3/ul Absolute Monos (auto) (0-0.8) 10^3/ul Absolute Eos (auto) (0-0.6) 10^3/ul Absolute Basos (auto) (0-0.2) 10^3/ul Absolute Nucleated RBC 10^3/ul Nucleated RBC % INR (Anticoag Therapy) 0.91 (0.77-1.02) APTT 30.9 (26.0-36.3) seconds Sodium 134 (133-145) mmol/L Potassium 3.9 (3.5-5.0) mmol/L Chloride 101 (101-111) mmol/L Carbon Dioxide 22 (22-32) mmol/L Anion Gap 11 (2-11) mmol/L BUN 12 (6-24) mg/dL Creatinine 0.91 (0.67-1.17) mg/dL Est GFR ( Amer) 114.4 (>60) Est GFR (Non-Af Amer) 88.9 (>60) BUN/Creatinine Ratio 13.2 (8-20) Glucose 234 H (70-100) mg/dL Lactic Acid (0.5-2.0) mmol/L Calcium 8.5 L (8.6-10.3) mg/dL Magnesium (1.9-2.7) mg/dL Total Bilirubin (0.2-1.0) mg/dL AST (13-39) U/L ALT (7-52) U/L Alkaline Phosphatase (34-104) U/L Total Creatine Kinase (10-223) U/L CK-MB (CK-2) (0.6-6.3) ng/mL Myoglobin (17.4-105.7) ng/mL Troponin I 4.82 H* (<0.04) ng/mL B-Natriuretic Peptide 415 H ( - 100) pg/mL Total Protein (6.4-8.9) g/dL Albumin (3.2-5.2) g/dL Globulin (2-4) g/dL Albumin/Globulin Ratio (1-3) LDL Cholesterol Direct mg/dL 10/21/1718 10/21/17 Range/Units 01:15 01:15 03:04 WBC 14.7 H (3.5-10.8) 10^3/ul RBC 4.79 (4.0-5.4) 10^6/ul Hgb 13.9 L (14.0-18.0) g/dl Hct 40 L (42-52) % MCV 84 (80-94) fL MCH 29 (27-31) pg MCHC 35 (31-36) g/dl RDW 13 (10.5-15) % Plt Count 221 (150-450) 10^3/ul MPV 8 (7.4-10.4) um3 Neut % (Auto) (38-83) % Lymph % (Auto) (25-47) % Harrison % (Auto) (1-9) % Eos % (Auto) (0-6) % Baso % (Auto) (0-2) % Absolute Neuts (auto) (1.5-7.7) 10^3/ul Absolute Lymphs (auto) (1.0-4.8) 10^3/ul Absolute Monos (auto) (0-0.8) 10^3/ul Absolute Eos (auto) (0-0.6) 10^3/ul Absolute Basos (auto) (0-0.2) 10^3/ul Absolute Nucleated RBC 10^3/ul Nucleated RBC % INR (Anticoag Therapy) (0.77-1.02) APTT (26.0-36.3) seconds Sodium (133-145) mmol/L Potassium (3.5-5.0) mmol/L Chloride (101-111) mmol/L Carbon Dioxide (22-32) mmol/L Anion Gap (2-11) mmol/L BUN (6-24) mg/dL Creatinine (0.67-1.17) mg/dL Est GFR ( Amer) (>60) Est GFR (Non-Af Amer) (>60) BUN/Creatinine Ratio (8-20) Glucose (70-100) mg/dL Lactic Acid 2.4 H* (0.5-2.0) mmol/L Calcium (8.6-10.3) mg/dL Magnesium (1.9-2.7) mg/dL Total Bilirubin (0.2-1.0) mg/dL AST (13-39) U/L ALT (7-52) U/L Alkaline Phosphatase (34-104) U/L Total Creatine Kinase (10-223) U/L CK-MB (CK-2) (0.6-6.3) ng/mL Myoglobin (17.4-105.7) ng/mL Troponin I 4.38 H* (<0.04) ng/mL B-Natriuretic Peptide ( - 100) pg/mL Total Protein (6.4-8.9) g/dL Albumin (3.2-5.2) g/dL Globulin (2-4) g/dL Albumin/Globulin Ratio (1-3) LDL Cholesterol Direct mg/dL ECG, personally reviewed: non-diagnostic ST elevation in III/AVF CXR, personally reviewed: IMPRESSION: NO EVIDENCE FOR ACUTE FINDING. CT abd/pel WO, personally reviewed: IMPRESSION: Trace bilateral pleural effusions. No evidence of acute abdominal or pelvic pathology. Impression: 47M presenting with NSTEMI found to have dissection in circumflex requiring NIRAV x2, intractable abdominal pain w/ N/V, & urinary retention DIAGNOSIS & PLAN Primary NSTEMI : NIRAV x2 to dissected circumflex : Diamond Galicia MD interventional cardiology managing abdominal pain w/ N/V : negative CT abd/pel WO : metoclopramide 10mg IV Q6H routine : ondansetron IV PRN : continue sucralfate : IVFs : pain control : pantoprazole bolus & GTT x10H : supportive care urinary retention : deng to gravity : start terazosin 2mg HS Secondary DM, poorly controlled w/ gastroparesis & neuropathy : A1c 9.27 Sep 2017 : basal/bolus/correctional insulin : insulin carb ratio diet HTN : continue ramipril & metoprolol HLD : continue atorvastatin chronic LBP : continue fentanyl patch GERD : pantoprazole bolus/GTT for now Admission Rational: inpatient for NSTEMI requiring NIRAV x2 to circumflex DVTp: SCDs Code Status: full HCP:
[2017-10-21] MEDS: Metoclopramide IV* 5 MG/ML 2 ML VIAL IV SCH ×2 (06:43→14:43)
--- NOTE | 2017-10-21 07:48 | ED ---
Daren Flanagan Angela, scribed for Tomasz Falcon MD on 10/20/17 at 2124 . 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 Pt has hx of gastroparesis. He reports sudden onset of upper and lower chest pain. Pt notes he has never had this pain before. Pt was seen in the ED 2 days ago for the same symptoms, but family member states today's vomiting is "more violent." PMHx: cardiac bypass, stent (2 years ago), gastroparesis. Pt notes Reglan helps with gastroparesis. - History Of Current Complaint Chief Complaint: EDChestPainROMI Time Seen by Provider: 10/20/17 20:52 Hx Obtained From: Patient Onset/Duration: Sudden Onset, Lasting Hours Timing: Constant Severity Initially: Moderate Aggravating Factor(s): nothing Alleviating Factor(s): nothing Associated Signs And Symptoms: Positive: Chest Pain, Nausea, Vomiting - Allergies/Home Medications Allergies/Adverse Reactions: Allergies Allergy/AdvReac Type Severity Reaction Status Date / Time MS Erythromycin AdvReac Intermediate Nausea And Verified 10/20/17 20:49 [Erythromycin] Vomiting CATS Allergy Eyes Uncoded 10/20/17 20:49 Itchy/Swollen/Red/Watery Home Medications: Home Medications Insulin GLARGINE(*) [Lantus(*)] 30 units SUBCUT QAM 10/20/17 [History Confirmed 10/20/17] PMH/Surg Hx/FS Hx/Imm Hx Endocrine/Hematology History: Reports: Hx Diabetes - TYPE 2 Denies: Hx Thyroid Disease Cardiovascular History: Reports: Hx Angina, Hx Coronary Artery Disease, Hx Hypercholesterolemia, Hx Hypertension - CONTROLLED WITH MEDS, Hx Myocardial Infarction, Other Cardiovascular Problems/Disorders - CARDIAC STENTS. CABG. HLD Denies: Hx Congestive Heart Failure, Hx Pacemaker/ICD, Hx Valvular Heart Disease Respiratory History: Denies: Hx Asthma, Hx Chronic Obstructive Pulmonary Disease (COPD) GI History: Reports: Hx Gall Bladder Disease - Removed. 05/04/17, Hx Gastroesophageal Reflux Disease - GASTROPARESIS, Other GI Disorders - GALLSTONES Denies: Hx Ulcer History: Denies: Hx Dialysis, Hx Renal Disease Musculoskeletal History: Reports: Hx Arthritis - hips and back, Hx Back Problems , Hx Bursitis - SHOULDERS, Other Musculoskeletal History - Degenerative joint disease, chronic lower back pain. hx OF OSTEOMYLITIS Sensory History: Reports: Hx Contacts or Glasses - Glasses Denies: Hx Hearing Aid Opthamlomology History: Reports: Hx Contacts or Glasses - Glasses Neurological History: Reports: Hx Migraine - OCCASSIONALY PER PT REPORT 1-2x per year, Other Neuro Impairments/Disorders - young's palsy, PAIN CLINIC PATIENT Psychiatric History: Reports: Hx Anxiety, Hx Depression, Hx Panic Disorder - does ok with mri foot, Hx Bipolar Disorder - Cancer History Hx Chemotherapy: No - Surgical History Surgery Procedure, Year, and Place: 2009 triple heart bypass;. 2007 cardiac cath no stents;. CARDIAC CATH 2 stents placed March 2014 at [facility]. GALLBLADDER Apr; Hx Anesthesia Reactions: No - Immunization History Date of Tetanus Vaccine: utd Date of Influenza Vaccine: utd Infectious Disease History: No Infectious Disease History: Reports: History Other Infectious Disease - spinal meningitis Denies: Hx Clostridium Difficile, Hx Hepatitis, Hx Human Immunodeficiency Virus (HIV), Hx of Known/Suspected MRSA, Hx Shingles, Hx Tuberculosis, Hx Known/ Suspected VRE, Hx Known/Suspected VRSA, Traveled Outside the [place] in Last 30 Days - Family History Known Family History: Positive: Cardiac Disease - [place] - mother & father, Hypertension, Diabetes - Social History Alcohol Use: None Alcohol Amount: 1-2 beers per week Hx Substance Use: No Substance Use Type: Reports: Marijuana Substance Use Comment - Amount & Last Used: "couple days ago" Hx Tobacco Use: Yes Smoking Status (MU): Former Smoker Type: Smokeless Tobacco Amount Used/How Often: Chews one tin per week Length of Time of Smoking/Using Tobacco: 4 years Have You Smoked in the Last Year: No Review of Systems Negative: Fever, Chills Positive: Chest Pain Positive: Vomiting, Nausea All Other Systems Reviewed And Are Negative: Yes Physical Exam - Summary Physical Exam Summary: Appearance: Well-appearing, Well-nourished Skin: Warm Eyes: Normal ENT: Normal Neck: Supple, nontender Respiratory: Clear to auscultation Cardiovascular: Normal S1, S2. No murmurs. Normal distal pulses. Abdomen: Soft, nontender Musculoskeletal: Normal, Strength/ROM Intact Neurological: Normal, A&Ox3 Psychiatric: Normal Triage Information Reviewed: Yes Vital Signs On Initial Exam: Initial Vitals Temp Pulse Resp BP Pulse Ox 97.0 F 67 20 173/83 100 10/20/17 20:48 10/20/17 20:48 10/20/17 20:48 10/20/17 20:48 10/20/17 20:48 Vital Signs Reviewed: Yes Diagnostics - Vital Signs Vital Signs Temp Pulse Resp BP Pulse Ox 10/20/17 20:48 97.0 F 67 20 173/83 100 - Laboratory Lab Results: Lab Results 10/20/17 10/20/17 10/20/17 Range/Units 21:35 21:35 21:35 WBC 18.7 H (3.5-10.8) 10^3/ul RBC 4.97 (4.0-5.4) 10^6/ul Hgb 14.7 (14.0-18.0) g/dl Hct 42 (42-52) % MCV 84 (80-94) fL MCH 30 (27-31) pg MCHC 35 (31-36) g/dl RDW 13 (10.5-15) % Plt Count 249 (150-450) 10^3/ul MPV 8 (7.4-10.4) um3 Neut % (Auto) 81.5 (38-83) % Lymph % (Auto) 11.0 L (25-47) % [place] % (Auto) 6.9 (1-9) % Eos % (Auto) 0.4 (0-6) % Baso % (Auto) 0.2 (0-2) % Absolute Neuts (auto) 15.3 H (1.5-7.7) 10^3/ul Absolute Lymphs (auto) 2.1 (1.0-4.8) 10^3/ul Absolute Monos (auto) 1.3 H (0-0.8) 10^3/ul Absolute Eos (auto) 0.1 (0-0.6) 10^3/ul Absolute Basos (auto) 0 (0-0.2) 10^3/ul Absolute Nucleated RBC 0 10^3/ul Nucleated RBC % 0 INR (Anticoag Therapy) (0.77-1.02) APTT (26.0-36.3) seconds Sodium 136 (133-145) mmol/L Potassium 3.5 (3.5-5.0) mmol/L Chloride 102 (101-111) mmol/L Carbon Dioxide 24 (22-32) mmol/L Anion Gap 10 (2-11) mmol/L BUN 14 (6-24) mg/dL Creatinine 1.01 (0.67-1.17) mg/dL Est GFR ( Amer) 101.4 (>60) Est GFR (Non-Af Amer) 78.8 (>60) BUN/Creatinine Ratio 13.9 (8-20) Glucose 191 H (70-100) mg/dL Lactic Acid 3.2 H* (0.5-2.0) mmol/L Calcium 9.4 (8.6-10.3) mg/dL Magnesium 2.1 (1.9-2.7) mg/dL Total Bilirubin 0.60 (0.2-1.0) mg/dL AST 45 H (13-39) U/L ALT 18 (7-52) U/L Alkaline Phosphatase 85 (34-104) U/L Total Creatine Kinase (10-223) U/L CK-MB (CK-2) (0.6-6.3) ng/mL Myoglobin (17.4-105.7) ng/mL Troponin I 7.23 H* (<0.04) ng/mL B-Natriuretic Peptide ( - 100) pg/mL Total Protein 7.1 (6.4-8.9) g/dL Albumin 4.1 (3.2-5.2) g/dL Globulin 3.0 (2-4) g/dL Albumin/Globulin Ratio 1.4 (1-3) LDL Cholesterol Direct mg/dL 10/20/17 10/20/17 10/20/17 Range/Units 21:35 22:29 22:29 WBC 19.6 H (3.5-10.8) 10^3/ul RBC 5.24 (4.0-5.4) 10^6/ul Hgb 15.3 (14.0-18.0) g/dl Hct 44 (42-52) % MCV 85 (80-94) fL MCH 29 (27-31) pg MCHC 35 (31-36) g/dl RDW 13 (10.5-15) % Plt Count 255 (150-450) 10^3/ul MPV 8 (7.4-10.4) um3 Neut % (Auto) 84.1 H (38-83) % Lymph % (Auto) 9.3 L (25-47) % [place] % (Auto) 6.2 (1-9) % Eos % (Auto) 0.2 (0-6) % Baso % (Auto) 0.2 (0-2) % Absolute Neuts (auto) 16.4 H (1.5-7.7) 10^3/ul Absolute Lymphs (auto) 1.8 (1.0-4.8) 10^3/ul Absolute Monos (auto) 1.2 H (0-0.8) 10^3/ul Absolute Eos (auto) 0 (0-0.6) 10^3/ul Absolute Basos (auto) 0 (0-0.2) 10^3/ul Absolute Nucleated RBC 0 10^3/ul Nucleated RBC % 0.1 INR (Anticoag Therapy) 0.94 (0.77-1.02) APTT (26.0-36.3) seconds Sodium 137 (133-145) mmol/L Potassium 3.7 (3.5-5.0) mmol/L Chloride 102 (101-111) mmol/L Carbon Dioxide 23 (22-32) mmol/L Anion Gap 12 H (2-11) mmol/L BUN 14 (6-24) mg/dL Creatinine 0.98 (0.67-1.17) mg/dL Est GFR ( Amer) 105.0 (>60) Est GFR (Non-Af Amer) 81.6 (>60) BUN/Creatinine Ratio 14.3 (8-20) Glucose 196 H (70-100) mg/dL Lactic Acid (0.5-2.0) mmol/L Calcium 9.5 (8.6-10.3) mg/dL Magnesium (1.9-2.7) mg/dL Total Bilirubin 0.70 (0.2-1.0) mg/dL AST 43 H (13-39) U/L ALT 19 (7-52) U/L Alkaline Phosphatase 77 (34-104) U/L Total Creatine Kinase 294 H (10-223) U/L CK-MB (CK-2) 31.4 H (0.6-6.3) ng/mL Myoglobin 61.1 (17.4-105.7) ng/mL Troponin I 8.49 H* (<0.04) ng/mL B-Natriuretic Peptide ( - 100) pg/mL Total Protein 7.3 (6.4-8.9) g/dL Albumin 4.2 (3.2-5.2) g/dL Globulin 3.1 (2-4) g/dL Albumin/Globulin Ratio 1.4 (1-3) LDL Cholesterol Direct 160 mg/dL 10/20/17 10/20/17 Range/Units 22:29 22:29 WBC (3.5-10.8) 10^3/ul RBC (4.0-5.4) 10^6/ul Hgb (14.0-18.0) g/dl Hct (42-52) % MCV (80-94) fL MCH (27-31) pg MCHC (31-36) g/dl RDW (10.5-15) % Plt Count (150-450) 10^3/ul MPV (7.4-10.4) um3 Neut % (Auto) (38-83) % Lymph % (Auto) (25-47) % [place] % (Auto) (1-9) % Eos % (Auto) (0-6) % Baso % (Auto) (0-2) % Absolute Neuts (auto) (1.5-7.7) 10^3/ul Absolute Lymphs (auto) (1.0-4.8) 10^3/ul Absolute Monos (auto) (0-0.8) 10^3/ul Absolute Eos (auto) (0-0.6) 10^3/ul Absolute Basos (auto) (0-0.2) 10^3/ul Absolute Nucleated RBC 10^3/ul Nucleated RBC % INR (Anticoag Therapy) 0.91 (0.77-1.02) APTT 30.9 (26.0-36.3) seconds Sodium (133-145) mmol/L Potassium (3.5-5.0) mmol/L Chloride (101-111) mmol/L Carbon Dioxide (22-32) mmol/L Anion Gap (2-11) mmol/L BUN (6-24) mg/dL Creatinine (0.67-1.17) mg/dL Est GFR ( Amer) (>60) Est GFR (Non-Af Amer) (>60) BUN/Creatinine Ratio (8-20) Glucose (70-100) mg/dL Lactic Acid (0.5-2.0) mmol/L Calcium (8.6-10.3) mg/dL Magnesium (1.9-2.7) mg/dL Total Bilirubin (0.2-1.0) mg/dL AST (13-39) U/L ALT (7-52) U/L Alkaline Phosphatase (34-104) U/L Total Creatine Kinase (10-223) U/L CK-MB (CK-2) (0.6-6.3) ng/mL Myoglobin (17.4-105.7) ng/mL Troponin I (<0.04) ng/mL B-Natriuretic Peptide 415 H ( - 100) pg/mL Total Protein (6.4-8.9) g/dL Albumin (3.2-5.2) g/dL Globulin (2-4) g/dL Albumin/Globulin Ratio (1-3) LDL Cholesterol Direct mg/dL Result Diagrams: 10/21/17 01:15 10/21/17 01:15 Lab Statement: Any lab studies that have been ordered have been reviewed, and results considered in the medical decision making process. - Radiology Chest XR Xray Interpretation: No Acute Changes - IMPRESSION: No evidence for acute findings. Dr. Falcon has reviewed this radiology report. Radiology Interpretation Completed By: Radiologist - EKG 21:07 Cardiac Rate: NL EKG Rhythm: Sinus Rhythm - at 67 bpm EKG Interpretation: ST elevation in V1, seen on prior. No reciprocal changes. 22:36 Cardiac Rate: NL EKG Rhythm: Sinus Rhythm - or ectopic atrial rhythm at 69 bpm. EKG Interpretation: no changes in st elevation in v1 wihtout reciprocal changes Complex Multi-Symp Course/Dx Assessment/Plan: Cardiology called at 22:09 after initial troponin resulted. asa given. Dr. Galicia recommended calling stemi code at 22:23 on second callback. Patient started on heparin bolus and gtt and subsequently taken to cathode washer - Diagnoses Provider Diagnoses: STEMI (ST elevation myocardial infarction) During the Visit The Following Alert/Code Occurred: STEMI - at 22:23 - Physician Notifications Discussed Care Of Patient With: Kalen Galicia Time Discussed With Above Provider: 22:09 Instructed by Provider To: Other - I discussed pt care with Dr. Galicia, whip operator. [22:23] Dr. Galicia called back and recommended calling stemi code Discharge - Discharge Plan Condition: Stable Disposition: ADMITTED TO [facility] The documentation as recorded by the Daren shore Angela accurately reflects the service I personally performed and the decisions made by me, Tomasz Falcon MD.
[2017-10-21] MEDS: fentaNYL PATCH 50 MCG/HR TRANSDERM SCH (07:56)
[2017-10-21] MEDS: Insulin LISPRO* 1 UNITS UNIT SUBCUT SCH ×7 (07:58→21:32)
--- NOTE | 2017-10-21 08:22 | RAD ---
CLINICAL HISTORY: Abdominal pain. Relevant surgical history includes cholecystectomy. COMPARISON: Most recent CT of the abdomen and pelvis is dated March 19, 2015 TECHNIQUE: Noncontrast CT examination of the abdomen and pelvis from the lung bases through the initial tuberosities. FINDINGS: VISUALIZED LUNG BASES: There are trace bibasilar pleural effusions slightly larger on the left than the right. Surgical material related to the patient's heart surgery is partially visualized. ABDOMEN AND PELVIS: Evaluation of the solid organs and vasculature is limited without intravenous contrast. The liver, spleen, pancreas and adrenal glands are grossly normal in appearance. The gallbladder is surgically absent. There is contrast filling the bilateral renal collecting systems and urinary bladder. The Flores catheter appears to be appropriately position. The kidneys are otherwise normal in appearance without focal mass, calcification or signs of hydronephrosis. The small and large bowel are not distended.The patient's normal appendix is identified in the right lower quadrant measuring 6 mm in diameter. There is no gross retroperitoneal or mesenteric lymphadenopathy. There is coarse calcification in the prostate gland. Surgical clips at the bilateral inguinal canals are consistent with history of vasectomy. A percutaneous sheath is noted in the right common femoral artery terminating at the distal portion of the external iliac artery. The abdominal aorta and iliac arteries are normal in course and diameter. Degenerative changes include multilevel loss of intervertebral disc height involving the lower thoracic and lumbar spine.There are no sinister bone lesions. IMPRESSION: 1. Trace bibasilar pleural effusions. 2. Chronic, degenerative and iatrogenic findings described in the body the report.
[2017-10-21] MEDS ORDERED: RANOLAZINE 1000 MG PO SCH (09:00)
[2017-10-21] MEDS ORDERED: Metoprolol Succinate XL TAB* 25 MG PO SCH (09:00)
[2017-10-21] MEDS: Ticagrelor* 90 MG TAB PO SCH ×2 (09:40→21:35)
[2017-10-21] MEDS: Aspirin Low Dose CHEW TAB* 81 MG PO SCH (09:40)
[2017-10-21] MEDS ORDERED: RANOLAZINE 500 MG PO SCH (10:00)
[2017-10-21] MEDS: Ramipril CAP* 5 MG PO SCH (10:30)
[2017-10-21 11:19] LABS: EGFR Non-African American 104.7 (>60)
[2017-10-21] MEDS ORDERED: Perflutren Lipid Microsphere* 3 ML VIAL ONE (11:44)
[2017-10-21] MEDS: Sucralfate TAB* 1 GM PO SCH ×3 (11:49→22:26)
[2017-10-21] MEDS: Ondansetron INJ* 2 MG/ML VIAL IV PRN (13:34)
[2017-10-21] MEDS: Metoclopramide TAB* 10 MG PO SCH ×3 (13:59→21:34)
--- NOTE | 2017-10-21 14:08 | ECHO ---
Patient: GWYN MIRELES [facility] Rec#: [id number] : 1970 Date: 10/21/2017 Age: 47y Height: 175.26 cm / 69.0 in Weight: 90.72 kg / 199.9 lbs Sex: M BSA: 2.07 Room#: ICU-4 Admit Date#: 10/21/2017 Type: Inpatient Referring: Kalen Galicia MD Reading: Kalen Galicia MD Ceramic Capacitor Processor: Jossie Kaiser RDCS CC: Tito Saunders MD Transthoracic Echocardiogram Indication: S/P PCI for STEMI BP: 142/85 HR: 68 Rhythm: NSR Findings History: DM, HTN, CAD w/ CABG and PCI, circ. dissection 10/21/17 2 stents placed, heavy marijuana use 3x daily. Technical Comments: The study is technically difficult. The study is technically limited due to patient body habitus. Completed at 1345. Left Ventricle: The left ventricular chamber size is normal. Mild concentric left ventricular hypertrophy is observed. There is global hypokinesis of the left ventricle with minor regional variation.The low proximal and mid interventricular septum and inferior wall are hypokinetic. There is moderately decreased left ventricular systolic function.Visually estimated LVEF is 40 %. Post surgical hypokinesis of the interventricular septum is observed consistent with coronary artery bypass. Normal left ventricular diastolic filling is observed. Left Atrium: The left atrium is mildly dilated. Right Ventricle: Moderator Band present. The right ventricle is mild to moderately dilated. The right ventricular global systolic function is mildly to moderately reduced. Right Atrium: The right atrium is mildly dilated. Aortic Valve: The aortic valve is trileaflet. The aortic valve leaflets are moderately thickened. There is evidence of aortic sclerosis without stenosis. There is a trace of aortic regurgitation. There is mild aortic stenosis. The aortic valve area, by VTI's, is calculated at 1.7 cm2. Mitral Valve: The mitral valve leaflets are mildly thickened. There is a trace of mitral regurgitation. There is no evidence of mitral stenosis. Tricuspid Valve: The tricuspid valve leaflets are normal. There is a physiologic tricuspid regurgitation. Unable to estimate the right ventricular systolic pressure. There is no tricuspid stenosis. Pulmonic Valve: The pulmonic valve appears normal. There is a trace pulmonic regurgitation. There is no pulmonic stenosis. Pericardium: There is no significant pericardial effusion. Aorta: There is no dilatation of the ascending aorta. There is no dilatation of the aortic arch. The aortic root is normal in size. Pulmonary Artery: The main pulmonary artery appears normal. Venous: The inferior vena cava appears normal in size. There is a greater than 50% respiratory change in the inferior vena cava dimension. Contrast: Definity was used to optimize study. 4 mL of diluted Definity was utilized. Intravenous contrast was used to enhance endocardial border definition. Conclusions Mild concentric left ventricular hypertrophy is observed. The low proximal and mid interventricular septum, anteroseptal, and inferior wall are hypokinetic. There is moderately decreased left ventricular systolic function. Visually estimated LVEF is 40 %. The aortic valve leaflets are moderately thickened. There is a trace of aortic regurgitation. There is mild aortic stenosis. There is a trace of mitral regurgitation. There is a physiologic tricuspid regurgitation. There is a trace pulmonic regurgitation. Compared to report of prior study from 02/20/2017 , if anything the overall LV systolic function as assessed with contrast is mildly better. The degree of aortic stenosis may be slightly worse but still only mild ( Dimensionless Index of .6 ) Measurements Name Value Normal Range RVIDd (AP) 2D 3.01 cm (0.9 - 2.6) RVDdMajor (2D) 4.9 cm (2.2 - 4.4) RVAW (2D) 0.7 cm (0.2 - 0.5) RAd ISD 4CH 5.1 cm (3.4 - 4.9) RA (A4C)W 3.8 cm (2.9 - 4.6) IVSd (2D) 1.1 cm (0.6 - 1) LVPWd (2D) 1.1 cm (0.6 - 1) LVIDd (2D) 3.9 cm (3.6 - 5.4) LVIDs (2D) 3 cm - LV FS (2D) 24 % (25 - 45) Aortic Annulus 1.8 cm (1.4 - 2.6) Ao root diameter (2D) 3.1 cm (2.1 - 3.5) Ascending Ao 2.9 cm (2.1 - 3.4) Aortic arch 2.6 cm (1.8 - 3.4) LA dimension (AP) 2D 3 cm (2.3 - 3.8) LAd ISD 4CH 5.3 cm (2.9 - 5.3) LA ISD 4CH W 4.6 cm (2.5 - 4.5) Name Value Normal Range LA ESV SP 4CH (A/L) 76 ml - LA ESV SP 2CH (A/L) 63 ml - LA ESV BP (A/L) 70 ml - LA ESV BP (A/L) index 34 ml/m2 - LA ESV SP 4CH (MOD) 71 ml - LA ESV SP 2CH (MOD) 60 ml - Name Value Normal Range MV E-wave Vmax 1 m/sec - MV deceleration time 146.5 msec - MV A-wave Vmax 0.64 m/sec - MV E:A ratio 1.56 ratio - LV septal e' Vmax 0.08 m/sec - LV lateral e' Vmax 0.11 m/sec - LV E:e' septal ratio 12.5 ratio - LV E:e' lateral ratio 9.09 ratio - Name Value Normal Range AV Vmax 1.52 m/sec - AV VTI 32.88 cm - AV peak gradient 9.36 mmHg - AV mean gradient 5.44 mmHg - LVOT diameter 2 cm - LVOT Vmax 1.02 m/sec - LVOT VTI 20 cm - LVOT peak gradient 4.2 mmHg - LVOT mean gradient 2.18 mmHg - DHARA (continuity Vmax) 1.9 cm2 - DHARA (continuity VTI) 1.7 cm2 - AINSLEY Vmax 0.84 m/sec - Name Value Normal Range IVC diameter 1.5 cm - Name Value Normal Range PV Vmax 1.41 m/sec - PV peak gradient 8.01 mmHg -
--- NOTE | 2017-10-21 15:39 | PN ---
Progress Note - Progress Note Date of Service: 10/21/17 Note: CRITICAL CARE MEDICINE Date: 10/21/17 Time: 1400 SUBJECTIVE: Patient seen and examined. PHYSICAL EXAM: Vital Signs: Reviewed. Neurologic: communicating well HEENT: pupils equal. Sclera anicteric. Trachea midline. Cardiovascular: S1 S2 no m appreciated Respiratory: clear Abdomen: Soft, nt. No r/g/r. Extremities: Warm. Access: piv; groin post sheath LABS: Reviewed. IMAGING: Reviewed. CT neg MEDICATIONS: Reviewed. ASSESSMENT: 47 M NSTEMI with 2DES to dissecting circ uncontrolled DM Gastroparesis PLAN: doing well. things seem to be subsiding. Cards following and titrating off nitro and cardiac regimen adjustments. Perfusion and vol status well. Reglan with meals. ppi po Outpt lantus and novolog regimens adjusted as needed- has a consult with [facility] upcoming. Needs better adherence to regimen. grayson borja tele Supportive and preventative care as ordered. Disposition: ICU today and potential floor tomorrow and perhaps disposition come Tuesday or more likely Tuesday with f/u needs Code Status: Full Critical Care Time: 25min FDada Gamble DO
--- NOTE | 2017-10-21 17:20 | HP ---
CC: Dr. Tito Saunders; Dr. Santos Oswald * ADMISSION HISTORY AND PHYSICAL: DATE OF ADMISSION: 10/21/17 CHIEF COMPLAINT: The patient with chest and abdominal discomfort with abnormal troponin, CPK, and MB. HISTORY OF PRESENT ILLNESS: The patient is a 47-year-old gentleman known to our group through Dr. Santos Oswald, who has watched him for his coronary artery disease. Tonight, he was at home earlier and went to the bathroom and while sitting on the toilet having a bowel movement, he developed the onset of chest discomfort and abdominal discomfort. It got worse with nauseousness and vomiting. He presented to the emergency room and in the emergency room, he was evaluated by Dr. Falcon, emergency room physician, who performed a basic blood work on him. He initially was felt to have more of a GI issue with nauseousness and vomiting as he had recently been in for a gastroparesis and just discharged the day before. He then, however, was noted to have significantly elevated troponin at 7. Dr. Nguyen called me with this concern. The EKG in the emergency room had revealed sinus rhythm with mild ST-segment depressions and 1 and aVL. There was mild ST elevation seen in V1, somewhat in V2, and subtly in V3 as well with question mild ST-segment depression in V6 and minimally in V5. A STEMI alert was called. Of note, his old EKG did have similar findings, but was somewhat worse on rayna's tracings. When I came in to see him, he was still having active discomfort. He was unable to tell me what his symptoms were like when he had his symptoms subsequently requiring bypass surgery in 2008. I discussed with his the situation and explained the significance of his abnormal cardiac enzymes and said at this point in time we will consider proceeding with cardiac catheterization and see whether or not there was significant progression of disease. The patient's cardiac history dates back to cardiac catheterization in 2007 with subsequent bypass on 12/04/08 with a BARR graft to the distal LAD, vein graft to the proximal LAD, and a vein graft to the right coronary artery. He subsequently had a cardiac catheterization done a year and a half later revealing normal LV function. His left main was normal. The LAD was occluded. The circumflex had a distal 75% obstruction. The right coronary artery was occluded. The BARR graft to the distal LAD was patent as was the vein graft to the proximal LAD and vein graft to the right. Over the course of time with further cardiac catheterizations, he ended up having a stent placed to the mid circumflex. His last cardiac catheterization was in 2016, during which time documentation again was noted of a totally occluded LAD, totally occluded right coronary artery. The vein graft to the right coronary artery and the vein graft to the proximal portion of the LAD were already known to be totally occluded. The stent to the mid obtuse marginal branch was widely patent. There was a proximal narrowing in the circumflex with a 60% to 70% narrowing noted. The right coronary artery was filled by collaterals via the circumflex and also the BARR graft. The BARR graft was widely patent. Medical management was pursued. PAST MEDICAL HISTORY: Also, is significant for diabetes, type 1, insulin requiring; dyslipidemia; hypertension; alcohol abuse in the past; migraines; chronic back pain; most recently now the hospitalization for mild chest discomfort with negative cardiac enzymes at that time and more importantly intractable nausea and vomiting and epigastric discomfort. He had an admission in August 2017 for suspected cyclic vomiting secondary to gastroparesis as well. He uses chronic marijuana as well. During that hospitalization, a KUB revealed a paucity of bowel gas limiting the study with no evidence of obstruction. Multiple clips were noted in the right upper quadrant from prior cholecystectomy. There was no evidence of obstruction. MEDICATIONS: On discharge from the hospital on 10/19/17 include: 1. Aspirin 81 mg a day. 2. Lipitor 20 mg a day. 3. Fentanyl patch 50 mcg every 72 hours. 4. Insulin on a sliding scale. 5. Reglan 10 mg a.c. and h.s. 6. Metoprolol succinate 25 mg a day. 7. Nitroglycerin patch 0.4 mg a day. 8. Zofran 8 mg b.i.d. p.r.n. 9. Protonix 40 mg a day. 10. Ramipril 5 mg a day. 11. Ranexa 1000 mg twice a day. 12. Carafate 1 g 3 times a day. 13. Insulin Lantus 30 units daily. REVIEW OF SYSTEMS: Pertinent proceeding to the cardiovascular laboratory on an emergent basis - the patient has no known history of renal failure or insufficiency. He has no history of hematochezia, hematemesis, or hematuria. He has had no prior stroke or a CVA. PHYSICAL EXAMINATION GENERAL: When seen in the emergency room revealed a gentleman writhing complaining of both chest and abdominal discomfort. HEENT: Conjunctivae were pink. Sclerae clear. Mouth revealed moist mucosa. NECK: Supple. There was no obvious increased JVP. Carotid with good upstroke and volume. I did not appreciate any definitive bruits. LUNGS: Revealed no accessory muscle usage. There was mild wheeze bilaterally. HEART: Revealed no visible heaves. No palpable heaves or thrills. Heart sounds were somewhat distant in nature, a question of a soft systolic murmur at the right upper sternal border was noted. ABDOMEN: Somewhat tender to touch, more so in the epigastric area and mid area as opposed to lateral aspects or lower area. When distracting the patient, I could place my hand over the abdominal area and not produce significant discomfort. He complained of chest discomfort that was not able to be reproduced on palpation. EXTREMITIES: Without clubbing, cyanosis, isiah pitting edema. Femoral pulse present without bruits. NEURO: The patient alert, oriented with normal mentation. MUSCULOSKELETAL: The patient moves all extremities appropriately. PSYCHOLOGICAL: The patient is appropriately anxious and in distress. DIAGNOSTIC STUDIES/LAB DATA: Revealed an initial hemoglobin and hematocrit of 14.7 and 42 with a white count of 18,700, platelet count was 249,000. INR was 0.94. Sodium 136, potassium 3.5, chloride 102, bicarb 24, BUN and creatinine were 14 and 1.0, glucose was 191, lactic acid was 3.2. SGOT was 45, SGPT was 18 , alkaline phosphatase was 85, total bili was 0.6. Troponin was 7.23. Total CPK was 294 with an MB of 31.4. Repeat troponin was 8.49. B-natriuretic peptide was 415. LDL was 160. Chest x-ray report revealed no evidence of acute findings. OVERALL ASSESSMENT: Bird presents now with chest discomfort and abdominal discomfort, difficult to assess fully with respect to definitive etiology; currently troponins are significantly elevated even on repeat with positive CPK and MB. EKG does have some degree of ST-segment depression and mild elevation noted. He has significant multivessel coronary artery disease from the past. At this point in time, I discussed the case with Dr. Falcon specifically with related to whether or not he felt potentially an acute process was present in the belly and he did not feel convinced of that at this time. He felt the patient was stable throughout heparin therapy and as such the patient was bolused with 4000 units of heparin. He got 180 mg of Brilinta in preparation for intervention. Further management will be made pending results of the cardiac catheterization. [id number]/[facility] #: [id number] MTDD
[2017-10-21] MEDS: Atorvastatin* 80 MG TAB PO SCH (18:28)
[2017-10-21] MEDS: fentaNYL Patch Check Q Shift 1 NOTE SCH (19:12)
[2017-10-21 20:52] LABS: ABS Basophils 0.1 10^3/ul (0-0.2); ABS Eosinophils 0 10^3/ul (0-0.6); ABS Lymphocytes 1.3 10^3/ul (1.0-4.8); ABS Monocytes 0.4 10^3/ul (0-0.8); ABS Neutrophils 13.3 10^3/ul (1.5-7.7); ABS Nucleated RBC 0.1 10^3/ul; Eosinophil % 0.1 % (0-6); Lymphocyte % 8.4 % (25-47); Nucleated Red Blood Cells % 0.3
[2017-10-21] MEDS ORDERED: Metoprolol Succinate XL TAB* 50 MG PO SCH (21:00)
[2017-10-21] MEDS ORDERED: Insulin GLARGINE(*) 1 UNITS UNIT SUBCUT SCH (21:00)
[2017-10-21] MEDS: Omeprazole CAP* 20 MG PO SCH (21:34)
[2017-10-21] MEDS: Terazosin CAP* 1 MG PO SCH (21:34)
[2017-10-21] MEDS: Metoprolol Succinate XL TAB* 25 MG PO SCH (21:35)
[2017-10-21] MEDS: RANOLAZINE 1000 MG PO SCH (22:23)
[2017-10-22 05:17] LABS: ABS Basophils 0 10^3/ul (0-0.2); ABS Eosinophils 0.1 10^3/ul (0-0.6); ABS Lymphocytes 3.1 10^3/ul (1.0-4.8); ABS Monocytes 0.9 10^3/ul (0-0.8); ABS Neutrophils 5.5 10^3/ul (1.5-7.7); ABS Nucleated RBC 0 10^3/ul; Eosinophil % 1.2 % (0-6); Hematocrit 39 % (42-52); Hemoglobin 13.5 g/dl (14.0-18.0); Lymphocyte % 32.1 % (25-47); Mean Corpuscular HGB Conc 35 g/dl (31-36); Mean Corpuscular Hemoglobin 29 pg (27-31); Mean Corpuscular Volume 85 fL (80-94); Mean Platelet Volume 8 um3 (7.4-10.4); Nucleated Red Blood Cells % 0.1; Platelet Count 202 10^3/ul (150-450); Red Blood Count 4.59 10^6/ul (4.0-5.4); Red Cell Distribution Width 13 % (10.5-15); White Blood Count 9.7 10^3/ul (3.5-10.8)
[2017-10-22 05:33] LABS: EGFR Non-African American 93.7 (>60)
[2017-10-22] MEDS: Ondansetron INJ* 2 MG/ML VIAL IV PRN ×4 (06:33→21:57)
[2017-10-22] MEDS: Sucralfate TAB* 1 GM PO SCH ×2 (06:33→12:41)
[2017-10-22] MEDS: fentaNYL Patch Check Q Shift 1 NOTE SCH ×2 (07:27→18:51)
[2017-10-22] MEDS: Insulin LISPRO* 1 UNITS UNIT SUBCUT SCH ×7 (07:51→21:42)
[2017-10-22] MEDS: Metoclopramide TAB* 10 MG PO SCH ×4 (07:56→21:45)
[2017-10-22] MEDS: Omeprazole CAP* 20 MG PO SCH ×2 (09:14→21:46)
[2017-10-22] MEDS: Metoprolol Succinate XL TAB* 25 MG PO SCH ×2 (09:15→21:45)
[2017-10-22] MEDS: Ticagrelor* 90 MG TAB PO SCH ×2 (09:15→21:43)
[2017-10-22] MEDS: Aspirin Low Dose CHEW TAB* 81 MG PO SCH (09:15)
[2017-10-22] MEDS: Potassium Chlor TAB* 20 MEQ TAB.ER PO SCH ×3 (09:15→18:17)
[2017-10-22] MEDS: Ramipril CAP* 5 MG PO SCH (09:15)
[2017-10-22] MEDS: RANOLAZINE 1000 MG PO SCH ×2 (09:20→22:16)
--- NOTE | 2017-10-22 10:38 | PN ---
Progress Note - Progress Note Date of Service: 10/22/17 Note: CRITICAL CARE MEDICINE Date: 10/22/17 Time: 1000 SUBJECTIVE: Patient seen and examined. PHYSICAL EXAM: Vital Signs: Reviewed. Neurologic: communicating well HEENT: pupils equal. Sclera anicteric. Trachea midline. Cardiovascular: S1 S2 no m appreciated Respiratory: clear Abdomen: Soft, nt. No r/g/r. Extremities: Warm. Access: piv LABS: Reviewed. IMAGING: Reviewed. MEDICATIONS: Reviewed. ASSESSMENT: 47 M NSTEMI with 2DES to dissecting circ uncontrolled DM Gastroparesis PLAN: doing well. Cards following and f/u cardiac regimen adjustments. Reglan with meals. ppi po. consider H2 at night. Outpt lantus (although on slightly less dose currently which is working and f/u needs). Carb coverage. - f.u with [facility] Needs better adherence to regimen as outpt. chronic pain/narc f/u Ambulate. Supportive and preventative care as ordered. Disposition: tele floor and perhaps disposition come Tuesday afternoon, or Tuesday if issues arise. Code Status: Full Critical Care Time: 25min D/w Tc Gamble DO
[2017-10-22] MEDS ORDERED: Ondansetron TAB* 4 MG PO PRN (15:37)
[2017-10-22] MEDS: HYDROmorphone INJ* 2 MG/ML CARPUJECT SYRINGE IV PRN (16:32)
[2017-10-22] MEDS: Nitroglycerin TAB 0.4 MG* 0.4 MG TAB SL PRN ×3 (16:54→17:05)
[2017-10-22] MEDS ORDERED: Nitroglycerin 2% OINT* 1 GM PAK TOPICAL ONE (18:26)
--- NOTE | 2017-10-22 18:35 | PN ---
Progress Note - Progress Note Date of Service: 10/22/17 Note: As asked by Dr. Galicia , pt was evaluated for CP. Pt is lying comfortably in bed in NAD. C/o substernal CP at 5.10, no SOB, no diaphoresis. Vitals stable with SBP 150. On Exam :AAOx3, in NAD Resp: CTA b/l CV: RRR, no murmur abd :soft, NT, BS+ EKG unchanged from AM EKG. Troponin lower than before at 4 D/w DR. Galicia who recommended another trop at 8 PM and another EKG. Will tx pt with nitro paste and Dilaudid
[2017-10-22] MEDS ORDERED: KCL 20 MEQ/100 ML IVPREMIX* 20 MEQ/100 ML BAG IV SCH (19:00)
[2017-10-22] MEDS ORDERED: Potassium Chloride IV* 60 MEQ in NS 0.9% 500 ML* 500 ML IVPB ONE (20:00)
[2017-10-22] MEDS ORDERED: Atorvastatin* 80 MG TAB ONE (21:31)
[2017-10-22] MEDS ORDERED: Sucralfate TAB* 1 GM ONE (21:36)
[2017-10-22] MEDS: Ezetimibe TAB* 10 MG PO SCH (21:44)
[2017-10-22] MEDS: Atorvastatin* 80 MG TAB PO SCH (21:44)
[2017-10-22] MEDS: HYDROmorphone INJ* 1 MG/ML CARPUJECT SYRINGE IV SLOW PU PRN (21:55)
[2017-10-22] MEDS: Terazosin CAP* 1 MG PO SCH (21:56)
[2017-10-23] MEDS: Sucralfate TAB* 1 GM PO SCH ×4 (00:18→23:02)
[2017-10-23] MEDS: HYDROmorphone INJ* 1 MG/ML CARPUJECT SYRINGE IV SLOW PU PRN ×2 (00:49→06:48)
[2017-10-23] MEDS: Ondansetron INJ* 2 MG/ML VIAL IV PRN ×3 (01:00→07:46)
[2017-10-23 05:45] LABS: EGFR Non-African American 82.6 (>60)
[2017-10-23] MEDS: fentaNYL Patch Check Q Shift 1 NOTE SCH ×2 (06:35→19:10)
[2017-10-23] MEDS: Insulin LISPRO* 1 UNITS UNIT SUBCUT SCH ×7 (07:45→21:03)
[2017-10-23] MEDS: Metoclopramide TAB* 10 MG PO SCH ×4 (07:46→21:05)
--- NOTE | 2017-10-23 08:09 | CATH ---
CC: Dr. Tito Saunders; Dr. Santos Oswald; [facility] * CARDIAC CATHETERIZATION AND INTERVENTIONAL REPORT: DATE OF STUDY: 10/20/17 INDICATION FOR THE PROCEDURE: The patient presents with non-ST elevation myocardial infarction with continued ongoing chest and abdominal discomfort. PROCEDURE: Coronary arteriography, BARR graft arteriography, balloon angioplasty and placement of a 2.5 x 12 mm long Synergy drug-eluting stent in the proximal portion of the circumflex artery, overlapped by 2.75 x 8 mm long Synergy drug- eluting stent more proximally, post dilated to 2.8 to 2.9 mm with high-pressure balloon inflation. DESCRIPTION OF THE PROCEDURE: The patient was interviewed and examined in the emergency room where the risks and benefits were explained. He understood them and wished to proceed. He was brought to the cardiovascular laboratory where a formal time-out was performed. He was prepped and draped in sterile fashion. The right groin area was anesthetized with 1% lidocaine, right femoral artery was cannulated, and a 6.5 [place] Merit sheath was placed. Of note, he is status post bypass surgery in the distant past and already known to us with the fact that a vein graft to the right coronary artery and vein graft to the proximal LAD were totally occluded. We also knew that his proximal right coronary artery was totally occluded. As such, the injection was made into the left coronary system utilizing a 5-Ch[place]an FL4 curved catheter. A critically dissected proximal circumflex artery was noted and a decision was made to intervene into this vessel, with his ongoing symptoms. Of note, the patient had received Brilinta 180 mg orally in the emergency room with 4000 units of heparin and full-dose aspirin. ECT was checked and found to be subtherapeutic. An Angiomax bolus was given and an Angiomax drip was started, and IV nitroglycerin drip was started as well. Guiding views were obtained utilizing a VL3 curved 6-Chilean guide catheter. An All Star 190 cm length interventional guidewire was utilized (following unsuccessful attempts to deliver the 20-mm long stent, a BMW guidewire was utilized to deliver the stents). Balloon angioplasty was initially performed utilizing a 2.5 x 12 mm long Emerge balloon. Attempts were then made to deliver 2.5 x 20 mm long Synergy drug-eluting stent and despite multiple inflations to try to open the area with 2.5 x 12 mm long NC Emerge balloon and 2.75 x 8, they were unsuccessful to deliver the stent. As such, two separate stents with a 2.25 x 12 overlapped more proximally by 2.75 x 12, with post- deployment inflations made throughout the course of the stents utilizing a 2.75 x 8 mm long NC Emerge balloon with high pressures. Following this, the artery was assessed in multiple views. Following this, an injection was made into the BARR graft utilizing a 5-Chilean IM catheter. At the end of the case, an injection was made into the right femoral sheath to assess the eligibility to utilize a closure device. A decision was made to suture the sheath in place for it to be removed later as the patient still was nauseated and vomiting and our concerns over placing a Mynx closure device in light of his constant vomiting, was made to avoid the development of a bleed in the groin area. The patient was transported to the intensive care unit for further evaluation of his continued nausea/vomiting with the hospitalist involved with the case. The total amount of contrast utilized was 150 cc of Omnipaque dye. The radiation exposure included 15.1 minutes of fluoro time. The air kerma radiation was 2470 milligray. The DAP radiation was 12,504 microgray per meter squared. RESULTS: CORONARY ARTERIOGRAPHY: A. Right coronary artery - not injected, as already known to be totally occluded. B. Left coronary artery. 1. Left main - widely patent, short in nature. 2. Left anterior descending artery - totally occluded at its ostium. 3. Circumflex artery - a nondominant vessel supplying a very thin, high first obtuse marginal branch. Just past this point, the proximal portion was a hazy dissected area with 95% stenosis seen. Past this point, in the area of prior stent placed in the mid portion of the vessel, it was found to be widely patent, followed by an area of 50% to 55% narrowing leading to a small-caliber distal vessel with a patent stent in a low-lying obtuse marginal branch. Collateral blood flow was seen to supply the distal right coronary artery branches via this approach. BARR GRAFT ARTERIOGRAPHY: The BARR graft was found to be widely patent with good anastomosis to the distal LAD, which was a thin caliber vessel, clearly well under 1.7 mm. Collateral blood flow was seen in a retrograde fashion up to the more proximal LAD, which was thin, diffusely diseased, as well as to diagonal branches and through septal perforators to the right coronary artery. It should be noted that all vessels visualized by the collateral blood flow were thin in nature suggesting diffuse disease, most likely on the basis of his insulin-requiring diabetes disease. INTERVENTION INTO PROXIMAL CIRCUMFLEX: - successful reduction of critically hazy dissected 95% lesion with a residual stenosis of 0% CHINO-3 flow and no dissection seen. 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 Of note, the patient will be placed on dual antiplatelet therapy for most likely 30 months. Of note, his risk factor management is paramount to his continued care. His LDL cholesterol was significantly elevated despite being on 80 mg a day of atorvastatin. We will add 10 mg of Zetia, but more importantly I would think he would be a prime candidate for the new subcutaneous hyperlipidemic agents. This approach will be taken up with Dr. Oswald, his primary finish opener, and perhaps Dr. Saunders, his family doctor. In the meantime, we will get an echocardiogram to look at his overall LV function and adjust management as needed. We will restart his RILEY inhibitor and continue his beta-brenden therapy as well. [id number]/[facility] #: [id number] MTDD
[2017-10-23] MEDS ORDERED: Ondansetron TAB* 4 MG PO PRN (08:21)
[2017-10-23] MEDS ORDERED: Ondansetron ODT TAB* 4 MG SL PRN (08:30)
--- NOTE | 2017-10-23 08:32 | PN ---
Subjective Date of Service: 10/23/17 Interval History: No chest pain since 2/3 PM. He continues to have occ emesis, nausea despite some IV and po ondansetron. Objective Active Medications: Aspirin (Aspirin Low Dose Tab*) 81 mg PO DAILY [facility] Last Admin: 10/22/17 09:15 Dose: 81 mg Atorvastatin Calcium (Lipitor*) 80 mg PO 1700 [facility] Last Admin: 10/22/17 21:44 Dose: 80 mg Ezetimibe (Zetia Tab*) 10 mg PO 1700 [facility] Last Admin: 10/22/17 21:44 Dose: 10 mg Fentanyl (Duragesic Patch 50 Mcg/Hr*) 50 mcg TRANSDERM Q48HR [facility] Last Admin: 10/21/17 07:56 Dose: 50 mcg Heparin Sodium (Porcine) (Heparin Vial(*)) 4,000 units IV ED ONCE [facility] Last Admin: 10/20/17 23:11 Dose: 4,000 units Hydromorphone HCl (Dilaudid Inj*) 0.5 mg IV Q2H PRN PRN Reason: PAIN Last Admin: 10/22/17 16:32 Dose: 0.5 mg Hydromorphone HCl (Dilaudid Injic*) 1 mg IV SLOW PU Q2H PRN PRN Reason: PAIN Last Admin: 10/23/17 06:48 Dose: 1 mg Insulin Glargine (Lantus(*)) 15 units SUBCUT Q24H [facility] Insulin Human Lispro (Humalog*) 0 units SUBCUT AC [facility] PRN Reason: Protocol Last Admin: 10/22/17 16:49 Dose: Not Given Insulin Human Lispro (Humalog*) 0 units SUBCUT [facility] PRN Reason: Protocol Last Admin: 10/23/17 07:45 Dose: 2 units Metoclopramide HCl (Reglan Tab*) 10 mg PO [facility] Last Admin: 10/23/17 07:46 Dose: 10 mg Metoprolol Succinate (Toprol Xl Tab*) 25 mg PO BID [facility] Last Admin: 10/22/17 21:45 Dose: 25 mg Nitroglycerin (Nitroglycerin Tab 0.4 Mg*) 0.4 mg SL Q5M PRN PRN Reason: ANGINA Last Admin: 10/22/17 17:05 Dose: 0.4 mg Omeprazole (Prilosec Cap*) 20 mg PO BID [facility] Last Admin: 10/22/17 21:46 Dose: 20 mg Ondansetron HCl (Zofran Inj*) 4 mg IV Q3H PRN PRN Reason: NAUSEA Last Admin: 10/23/17 07:46 Dose: 4 mg Ondansetron HCl (Zofran Tab*) 8 mg PO Q4H PRN PRN Reason: NAUSEA Pharmacy Profile Note (Fentanyl Patch Check Q Shift) 1 note N/A 0700,1900 [facility] Last Admin: 10/23/17 06:35 Dose: 1 note Ramipril (Altace Cap*) 5 mg PO DAILY [facility] Last Admin: 10/22/17 09:15 Dose: 5 mg Ranolazine (Ranexa) 1,000 mg PO BID [facility] Last Admin: 10/22/17 22:16 Dose: 1,000 mg Sucralfate (Carafate*) 1 gm PO 0630,1100,2100 [facility] Last Admin: 10/23/17 05:37 Dose: 1 gm Terazosin HCl (Hytrin Cap*) 2 mg PO BEDTIME [facility] Last Admin: 10/22/17 21:56 Dose: 2 mg Ticagrelor (Brilinta*) 90 mg PO BID [facility] Last Admin: 10/22/17 21:43 Dose: 90 mg Vital Signs - 8 hr 10/23/17 10/23/17 10/23/17 00:45 00:48 00:49 Temperature Pulse Rate 86 Respiratory 13 16 15 Rate Blood Pressure 97/62 (mmHg) O2 Sat by Pulse 97 Oximetry 10/23/17 10/23/17 10/23/17 01:57 04:02 06:48 Temperature 98.0 F Pulse Rate 81 Respiratory 15 16 18 Rate Blood Pressure 106/66 (mmHg) O2 Sat by Pulse 98 Oximetry Oxygen Devices in Use Now: None Appearance: Alert, sitting up in bed. In good spirits. Looks comfortable. Eyes: No Scleral Icterus Respiratory: Symmetrical Chest Expansion and Respiratory Effort, Clear to Auscultation, Clear to Percussion Extremities: No Edema, No Clubbing, Cyanosis, - Skin: No Rash or Ulcers, No Nodules or Sclerosis, - Neurological: Alert and Oriented x 3, NL Sensation Result Diagrams: 10/22/17 05:10 10/23/17 05:04 Additional Lab and Data: Lab Results 02/10/0610/20/17 10/20/17 Range/Units 21:35 21:35 21:35 WBC 18.7 H (3.5-10.8) 10^3/ul RBC 4.97 (4.0-5.4) 10^6/ul Hgb 14.7 (14.0-18.0) g/dl Hct 42 (42-52) % MCV 84 (80-94) fL MCH 30 (27-31) pg MCHC 35 (31-36) g/dl RDW 13 (10.5-15) % Plt Count 249 (150-450) 10^3/ul MPV 8 (7.4-10.4) um3 Neut % (Auto) 81.5 (38-83) % Lymph % (Auto) 11.0 L (25-47) % [place] % (Auto) 6.9 (1-9) % Eos % (Auto) 0.4 (0-6) % Baso % (Auto) 0.2 (0-2) % Absolute Neuts (auto) 15.3 H (1.5-7.7) 10^3/ul Absolute Lymphs (auto) 2.1 (1.0-4.8) 10^3/ul Absolute Monos (auto) 1.3 H (0-0.8) 10^3/ul Absolute Eos (auto) 0.1 (0-0.6) 10^3/ul Absolute Basos (auto) 0 (0-0.2) 10^3/ul Absolute Nucleated RBC 0 10^3/ul Nucleated RBC % 0 INR (Anticoag Therapy) (0.77-1.02) APTT (26.0-36.3) seconds Sodium 136 (133-145) mmol/L Potassium 3.5 (3.5-5.0) mmol/L Chloride 102 (101-111) mmol/L Carbon Dioxide 24 (22-32) mmol/L Anion Gap 10 (2-11) mmol/L BUN 14 (6-24) mg/dL Creatinine 1.01 (0.67-1.17) mg/dL Est GFR ( Amer) 101.4 (>60) Est GFR (Non-Af Amer) 78.8 (>60) BUN/Creatinine Ratio 13.9 (8-20) Glucose 191 H (70-100) mg/dL Lactic Acid 3.2 H* (0.5-2.0) mmol/L Calcium 9.4 (8.6-10.3) mg/dL Magnesium 2.1 (1.9-2.7) mg/dL Total Bilirubin 0.60 (0.2-1.0) mg/dL AST 45 H (13-39) U/L ALT 18 (7-52) U/L Alkaline Phosphatase 85 (34-104) U/L Total Creatine Kinase (10-223) U/L CK-MB (CK-2) (0.6-6.3) ng/mL Myoglobin (17.4-105.7) ng/mL Troponin I 7.23 H* (<0.04) ng/mL B-Natriuretic Peptide ( - 100) pg/mL Total Protein 7.1 (6.4-8.9) g/dL Albumin 4.1 (3.2-5.2) g/dL Globulin 3.0 (2-4) g/dL Albumin/Globulin Ratio 1.4 (1-3) LDL Cholesterol Direct mg/dL 10/20/17 10/20/17 10/20/17 Range/Units 21:35 22:29 22:29 WBC 19.6 H (3.5-10.8) 10^3/ul RBC 5.24 (4.0-5.4) 10^6/ul Hgb 15.3 (14.0-18.0) g/dl Hct 44 (42-52) % MCV 85 (80-94) fL MCH 29 (27-31) pg MCHC 35 (31-36) g/dl RDW 13 (10.5-15) % Plt Count 255 (150-450) 10^3/ul MPV 8 (7.4-10.4) um3 Neut % (Auto) 84.1 H (38-83) % Lymph % (Auto) 9.3 L (25-47) % [place] % (Auto) 6.2 (1-9) % Eos % (Auto) 0.2 (0-6) % Baso % (Auto) 0.2 (0-2) % Absolute Neuts (auto) 16.4 H (1.5-7.7) 10^3/ul Absolute Lymphs (auto) 1.8 (1.0-4.8) 10^3/ul Absolute Monos (auto) 1.2 H (0-0.8) 10^3/ul Absolute Eos (auto) 0 (0-0.6) 10^3/ul Absolute Basos (auto) 0 (0-0.2) 10^3/ul Absolute Nucleated RBC 0 10^3/ul Nucleated RBC % 0.1 INR (Anticoag Therapy) 0.94 (0.77-1.02) APTT (26.0-36.3) seconds Sodium 137 (133-145) mmol/L Potassium 3.7 (3.5-5.0) mmol/L Chloride 102 (101-111) mmol/L Carbon Dioxide 23 (22-32) mmol/L Anion Gap 12 H (2-11) mmol/L BUN 14 (6-24) mg/dL Creatinine 0.98 (0.67-1.17) mg/dL Est GFR ( Amer) 105.0 (>60) Est GFR (Non-Af Amer) 81.6 (>60) BUN/Creatinine Ratio 14.3 (8-20) Glucose 196 H (70-100) mg/dL Lactic Acid (0.5-2.0) mmol/L Calcium 9.5 (8.6-10.3) mg/dL Magnesium (1.9-2.7) mg/dL Total Bilirubin 0.70 (0.2-1.0) mg/dL AST 43 H (13-39) U/L ALT 19 (7-52) U/L Alkaline Phosphatase 77 (34-104) U/L Total Creatine Kinase 294 H (10-223) U/L CK-MB (CK-2) 31.4 H (0.6-6.3) ng/mL Myoglobin 61.1 (17.4-105.7) ng/mL Troponin I 8.49 H* (<0.04) ng/mL B-Natriuretic Peptide ( - 100) pg/mL Total Protein 7.3 (6.4-8.9) g/dL Albumin 4.2 (3.2-5.2) g/dL Globulin 3.1 (2-4) g/dL Albumin/Globulin Ratio 1.4 (1-3) LDL Cholesterol Direct 160 mg/dL 10/20/17 10/20/17 Range/Units 22:29 22:29 WBC (3.5-10.8) 10^3/ul RBC (4.0-5.4) 10^6/ul Hgb (14.0-18.0) g/dl Hct (42-52) % MCV (80-94) fL MCH (27-31) pg MCHC (31-36) g/dl RDW (10.5-15) % Plt Count (150-450) 10^3/ul MPV (7.4-10.4) um3 Neut % (Auto) (38-83) % Lymph % (Auto) (25-47) % [place] % (Auto) (1-9) % Eos % (Auto) (0-6) % Baso % (Auto) (0-2) % Absolute Neuts (auto) (1.5-7.7) 10^3/ul Absolute Lymphs (auto) (1.0-4.8) 10^3/ul Absolute Monos (auto) (0-0.8) 10^3/ul Absolute Eos (auto) (0-0.6) 10^3/ul Absolute Basos (auto) (0-0.2) 10^3/ul Absolute Nucleated RBC 10^3/ul Nucleated RBC % INR (Anticoag Therapy) 0.91 (0.77-1.02) APTT 30.9 (26.0-36.3) seconds Sodium (133-145) mmol/L Potassium (3.5-5.0) mmol/L Chloride (101-111) mmol/L Carbon Dioxide (22-32) mmol/L Anion Gap (2-11) mmol/L BUN (6-24) mg/dL Creatinine (0.67-1.17) mg/dL Est GFR ( Amer) (>60) Est GFR (Non-Af Amer) (>60) BUN/Creatinine Ratio (8-20) Glucose (70-100) mg/dL Lactic Acid (0.5-2.0) mmol/L Calcium (8.6-10.3) mg/dL Magnesium (1.9-2.7) mg/dL Total Bilirubin (0.2-1.0) mg/dL AST (13-39) U/L ALT (7-52) U/L Alkaline Phosphatase (34-104) U/L Total Creatine Kinase (10-223) U/L CK-MB (CK-2) (0.6-6.3) ng/mL Myoglobin (17.4-105.7) ng/mL Troponin I (<0.04) ng/mL B-Natriuretic Peptide 415 H ( - 100) pg/mL Total Protein (6.4-8.9) g/dL Albumin (3.2-5.2) g/dL Globulin (2-4) g/dL Albumin/Globulin Ratio (1-3) LDL Cholesterol Direct mg/dL Microbiology and Other Data: Microbiology 10/21/17 01:30 Nasal Screen MRSA (PCR)(ALF) - Final Nasal Mrsa Not Detected Assess/Plan/Problems-Billing Assessment: - Patient Problems (1) Diabetes Current Visit: No Status: Chronic Code(s): E11.9 - TYPE 2 DIABETES MELLITUS WITHOUT COMPLICATIONS SNOMED Code(s): 64510185 Comment: Restart Lantus at 15 U q AM on 10/23, has been taking 20 U at home. Continue Lispro by SS. (2) ACS (acute coronary syndrome) Current Visit: No Status: Acute Code(s): I24.9 - ACUTE ISCHEMIC HEART DISEASE, UNSPECIFIED SNOMED Code(s): 032712350 Comment: Circumflex stent 10/20/17. Continue ticagrelor, ASA, statin, BB, ranolazine. Fup Dr. Galicia. (3) Hypertension Current Visit: No Status: Chronic Code(s): I10 - ESSENTIAL (PRIMARY) HYPERTENSION SNOMED Code(s): 88520009 Comment: - Continue metoprolol, ramipril. (4) Nausea & vomiting Current Visit: No Status: Acute Onset Date: 10/08/14 Code(s): R11.2 - NAUSEA WITH VOMITING, UNSPECIFIED SNOMED Code(s): 86242593 Comment: Suspect diabetic gastroparesis. Try 8 mg dose ondansetron po and/ or ODT. - Continue Omeprazole, Reglan.
[2017-10-23] MEDS: fentaNYL PATCH 50 MCG/HR TRANSDERM SCH (08:42)
[2017-10-23] MEDS: Insulin GLARGINE(*) 1 UNITS UNIT SUBCUT SCH (08:46)
[2017-10-23] MEDS: Omeprazole CAP* 20 MG PO SCH ×2 (08:46→21:06)
[2017-10-23] MEDS: RANOLAZINE 1000 MG PO SCH (08:47)
[2017-10-23] MEDS: Ticagrelor* 90 MG TAB PO SCH ×2 (08:47→21:08)
[2017-10-23] MEDS: Ramipril CAP* 5 MG PO SCH ×2 (08:47→08:51)
[2017-10-23] MEDS: Aspirin Low Dose CHEW TAB* 81 MG PO SCH (08:47)
[2017-10-23] MEDS: Metoprolol Succinate XL TAB* 25 MG PO SCH ×3 (08:47→21:06)
[2017-10-23] MEDS ORDERED: NS 0.9% 250 ML* 250 ML IV ONE (11:00)
[2017-10-23] MEDS ORDERED: Nicotine PATCH 14 MG/24 HR* PATCH TRANSDERM SCH (11:00)
[2017-10-23] MEDS: Nicotine PATCH 14 MG/24 HR* PATCH TRANSDERM SCH (12:22)
[2017-10-23] MEDS: Ezetimibe TAB* 10 MG PO SCH (16:47)
[2017-10-23] MEDS: Atorvastatin* 80 MG TAB PO SCH (16:48)
[2017-10-23] MEDS ORDERED: Nicotine Patch Removal NOTE PATCH OFF SCH (21:00)
[2017-10-23] MEDS: RANOLAZINE 500 MG PO SCH (21:07)
[2017-10-23] MEDS: Terazosin CAP* 1 MG PO SCH (21:08)
[2017-10-24] MEDS: Sucralfate TAB* 1 GM PO SCH ×2 (05:47→11:46)
[2017-10-24 05:54] LABS: EGFR Non-African American 75.4 (>60)
[2017-10-24] MEDS: fentaNYL Patch Check Q Shift 1 NOTE SCH (07:14)
[2017-10-24] MEDS: Insulin GLARGINE(*) 1 UNITS UNIT SUBCUT SCH (08:51)
[2017-10-24] MEDS: Insulin LISPRO* 1 UNITS UNIT SUBCUT SCH ×4 (08:51→13:34)
[2017-10-24] MEDS: Aspirin Low Dose CHEW TAB* 81 MG PO SCH (08:53)
[2017-10-24] MEDS: Metoclopramide TAB* 10 MG PO SCH ×2 (08:53→11:46)
[2017-10-24] MEDS: Omeprazole CAP* 20 MG PO SCH (08:53)
[2017-10-24] MEDS: Ramipril CAP* 5 MG PO SCH (08:53)
[2017-10-24] MEDS: RANOLAZINE 500 MG PO SCH (08:54)
[2017-10-24] MEDS: Ticagrelor* 90 MG TAB PO SCH (08:54)
[2017-10-24] MEDS: Nicotine PATCH 14 MG/24 HR* PATCH TRANSDERM SCH (08:55)
[2017-10-24] MEDS: Metoprolol Succinate XL TAB* 25 MG PO SCH (08:56)
[2017-10-24 14:03] VITALS: BP 110/65
--- NOTE | 2017-10-25 11:33 | DS ---
CC: Dr. Oswald; Dr. Tito Saunders. * DISCHARGE SUMMARY: DATE OF ADMISSION: 10/21/17 DATE OF DISCHARGE: 10/24/17 HISTORY OF PRESENT ILLNESS/HOSPITAL COURSE: This 47-year-old man presented with abdominal pain, nausea, and vomiting. His troponin was found to be 7.23. There was some ST elevation in 3 and aVF. 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 A Flores was placed and testing returning 1 L. The patient was started on terazosin, I believe to help with bladder emptying. His Flores catheter was later removed, he was not having any trouble with his bladder, although I note he continued to receive terazosin throughout his hospital stay. Overall, his course was uneventful. He was started on ticagrelor, which will be in conjunction with his aspirin. FINAL DIAGNOSES: 1. Acute coronary syndrome. 2. Diabetes. 3. Hypertension. 4. Nausea and vomiting, likely from diabetic gastroparesis. 5. Urinary retention. DISCHARGE MEDICATIONS: 1. Ezetimibe 10 mg 5 p.m. 2. Omeprazole 20 mg b.i.d. 3. Terazosin 2 mg at h.s. 4. Ticagrelor 90 mg b.i.d. 5. Ramipril 5 mg daily. 6. Aspirin 81 mg daily. 7. Nitroglycerin 0.4 mg per hour patch every evening. 8. Metoprolol succinate 25 mg daily. 9. Fentanyl patch 50 mcg per hour every 48 hours. 10. Ranolazine 1000 mg b.i.d. 11. Atorvastatin 80 mg daily. 12. Metoclopramide 10 mg a.c. and h.s. 13. Ondansetron 8 mg tablet b.i.d. p.r.n. 14. Nitroglycerin 0.4 mg sublingual every 5 minutes p.r.n. 15. Sucralfate 1 g t.i.d. 16. Glargine 30 units daily. 17. Humalog by sliding scale. [id number]/[facility] #: [id number] MTDD
== END 2017-10-24 14:00 | disposition home or self-care (01) | DRG 246 ==
LOC: ED 20:45 → CHICATH 23:03 → ICU 10-21 00:15 → MEDTELE 10-22 14:42
PROVIDERS: ADMIT Internal Medicine Cardiovascular Disease; ATTEND Internal Medicine
PROC: 027035Z Dilation of Coronary Artery, One Artery with Two Drug-eluting Intraluminal Devices, Percutaneous Approach (ICD-10-PCS; principal; 2017-10-21)
PROC: B2111ZZ Fluoroscopy of Multiple Coronary Arteries using Low Osmolar Contrast (ICD-10-PCS; 2017-10-21)
PROC: B2181ZZ Fluoroscopy of Left Internal Mammary Bypass Graft using Low Osmolar Contrast (ICD-10-PCS; 2017-10-21)
DX: I21.4 Non-ST elevation (NSTEMI) myocardial infarction (principal); I25.42 Coronary artery dissection; K31.84 Gastroparesis; E10.40 Type 1 diabetes mellitus with diabetic neuropathy, unspecified; E10.43 Type 1 diabetes mellitus with diabetic autonomic (poly)neuropathy; I24.9 Acute ischemic heart disease, unspecified; I10 Essential (primary) hypertension; R33.9 Retention of urine, unspecified; I25.10 Atherosclerotic heart disease of native coronary artery without angina pectoris; E78.5 Hyperlipidemia, unspecified; G43.909 Migraine, unspecified, not intractable, without status migrainosus; G89.29 Other chronic pain; M54.5 Low back pain; K21.9 Gastro-esophageal reflux disease without esophagitis; F32.9 Major depressive disorder, single episode, unspecified; F12.90 Cannabis use, unspecified, uncomplicated; E66.3 Overweight; E10.65 Type 1 diabetes mellitus with hyperglycemia; F41.0 Panic disorder [episodic paroxysmal anxiety]; M16.0 Bilateral primary osteoarthritis of hip; M47.9 Spondylosis, unspecified; Z79.02 Long term (current) use of antithrombotics/antiplatelets; Z79.82 Long term (current) use of aspirin; Z79.4 Long term (current) use of insulin; Z95.1 Presence of aortocoronary bypass graft; Z95.5 Presence of coronary angioplasty implant and graft; I25.2 Old myocardial infarction; Z88.1 Allergy status to other antibiotic agents; Z91.048 Other nonmedicinal substance allergy status; Z90.49 Acquired absence of other specified parts of digestive tract; Z87.891 Personal history of nicotine dependence; Z82.49 Family history of ischemic heart disease and other diseases of the circulatory system; Z83.3 Family history of diabetes mellitus; Z83.49 Family history of other endocrine, nutritional and metabolic diseases; Z68.29 Body mass index [BMI] 29.0-29.9, adult
CPT/HCPCS: 36415; 71045; 74176; 80048; 80053; 80061; 82150; 82550; 82553; 83605; 83690; 83721; 83735; 83874; 83880; 84484; 85025; 85610; 85730; 87641; 93005; 93306; 93455; 96374; 99156; 99157; 99285; A9270-GY; C1725; C1769; C1876; C1887; C8929; C9604-LC; J0583; J1170; J1644; J2250; J2270; J2405; J2765; J3010; J3480

== ENCOUNTER 2018-01-27 18:26 | Inpatient (IN) | payer MEDICARE ==
[2018-01-27] MEDS ORDERED: HYDROmorphone INJ* 1 MG/ML CARPUJECT SYRINGE IV ONE (19:04)
[2018-01-27] MEDS ORDERED: NS 0.9% 1000 ML* 1,000 ML IV ONE ×3 (19:04→22:33)
[2018-01-27] MEDS ORDERED: Metoclopramide IV* 5 MG/ML 2 ML VIAL IV ONE (19:04)
--- OUTSIDE RECORDS SUMMARY | 2018-01-27 19:12 | XMS REPORT ---
:1970 External Reference #:[id number] Author Organization [facility] Address [address] [address] Phone [phone] Care Team Providers Name Role Phone Steve Rob MD Care Team Information Event Marketing Specialist Unavailable Tito Saunders MD Primary Care Physician Unavailable Payers Type Date Identification Numbers Payment Provider Subscriber Commercial Effective: Policy Number: [id number] Mallika Gambino/Mary Ellen Gwyn Stratton Vargas 2016 Options PayID: [id number] [address] [address] Attn: [place] [address] Medigap Part B Effective: 2016 Policy Number: MADDY Beata Pacheco Vargas [id number] Expires: 2016 PayID: [id number] [address] [address] JAMARI Hanks [address] Medigap Part B Expires: Policy Number: Harman Neil Tara Kuhn Vargas 2014 [id number] Ppo PayID: [id number] [address] [address] JAMARI Garcia [address] Medigap Part B Expires: 2016 Policy Number: BS Beata Pacheco Vargas [id number] PayID: [id number] [address] [address] JAMARI Hanks [address] Problems Date Description Provider Status Onset: 06/16/2011 Coronary arteriosclerosis Daisy Oneill D.O. Active Onset: 07/05/2013 Arteriosclerosis of autologous vein Santos Oswald M.D. Active coronary artery bypass graft Onset: 07/05/2013 Chronic ischemic heart disease Santos Oswald M.D. Active Onset: 07/05/2013 Chest pain Santos Oswald M.D. Active Family History Date Family Member(s) Problem(s) Comments Father due to NM () Father due to CAD () Father due to Diabetes () Father due to Arthritis () Father due to cabg () - age 47 yrs old Father due to Hypertension () Father due to hyperlipidemia () Mother Alcoholism and prescription drug over use Mother Diabetes, Insulin Dependent Mother organic brain syndrome First Daughter Alive And Well age 15 yrs old First Sister Asthma Paternal Grandfather due to Cancer () - stomach Paternal Grandfather due to thyroid diease () Paternal Grandmother due to Heart Disease () Paternal Grandmother due to CHF () Maternal Grandfather due to Alcohol Related () Maternal Grandfather due to COPD () Maternal Grandmother due to Alcohol Related () Social History Type Date Description Comments Marital Status Lives With Spouse 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 Cigarette Use Former Cigarette Smoker 3 Packs Daily x 7 yrs has quit ETOH Use Rarely consumes alcohol Smoking Patient is a former smoker quit in 1987 Recreational Drug Use Current Drug User Daily Caffeine Does Not Consume Caffeine Exercise Type/Frequency Does not exercise Allergies, Adverse Reactions, Alerts Date Description Reaction Status Severity Comments 06/16/2011 Erythromycin GI distress active Medications Medication Date Status Form Strength Qnty SIG Indications Ordering Provider Stool Softener 05/01/ Active 150mg 3 tabs daily Unknown 2017 One Daily 05/01/ Active Tablets once daily Unknown Vitamin 2017 (no longer taking) Nitroglycerin 04/27/ Active Tablets 0.4mg 25tab 1 sl q5mins Steve Mccarthy 2017 Sub s x3 as needed Sudhakar, for chest DO FACC pain Ramipril 11/08/ Active Capsules 5mg 90cap 1 by mouth Santos 2017 s every day Kassi Oswald M.D. Nitro-Dur 01/08/ Active Patches 0.4mg/HR 90uni apply at at R07.9 Rob 2016 24HR ts bedtime and F. remove in in Mauser, the morning M.D. Ondansetron 07/16/ Active Tablets 4mg 30tab 1 tab 787.02 Sanya 2013 Dispers s dissolve D. under tongue Macqueen, every 8 hours M.D. as needed Ranexa 02/25/ Active Tablets 1000mg 180ta 1 tab by Santos 2014 ER 12HR bs mouth twice a D. Brand, day M.D. Metoprolol 12/22/ Active Tablets 25mg 270ta 1 tab by Santos Succinate ER 2012 ER 24HR bs mouth in in Kassi Oswald, the morning M.D. and 2 tabs (50 mg) in at night ( taking 25mg daily ) Lipitor / Active Tablets 80mg 90tab 1 by mouth Santos 0000 s every night D. Darek, at bedtime M.D. Lantus / Active Solution 100Unit/M 6Vial 30 units Unknown 0000 L s daily Am Seroquel / Active Tablets 50mg 1 by mouth Unknown 0000 every night at bedtime Reglan / Active Tablets 10mg qac and hs as Unknown 0000 needed Protonix / Active Solution 40mg 0ne at hs Unknown 0000 Rec Ra Pen Briscoe / Active Misc 31G X 8 inject Up To Unknown 0000 mm 4 Times A Day Fentanyl / Active Patches 50mcg/HR apply 1 patch Unknown 0000 72HR to Skin Every 72 Hours maximum daily dose of 1 Humalog / Active Solution 100Unit/M 30 units once Unknown 0000 L daily Brilinta / Active Tablets 90mg 180ta 1 tab by Santos 0000 bs mouth twice a D. Brand, day M.D. Terazosin HCL / Active Capsules 1mg 60cap take 2 Santos 0000 s capsules by Kassi Oswald, mouth at M.D. bedtime Zetia / Active Tablets 10mg 1 by mouth Unknown 0000 every day Zofran 09/05/ Hx Tablets 4mg 30tab 1 tab by 730.17 Sanya 2013 - s mouth every 6 D. 03/31/ hours as Cathy 2014 needed nausea M.D. Bactrim DS 09/05/ Hx Tablets 800-160mg 60tab 1 by mouth 730.17 Sanya 2013 - s twice a day D. 10/07/ Vlad Morgan M.D. Minocin 07/30/ Hx Capsules 100mg 56cap 1 cap by 728.0 Sanya 2013 - s mouth twice D. 09/04/ daily Cathy 2014 M.D. Clopidogrel 12/26/ Hx Tablets 75mg 90tab 1 by mouth Santos Bisulfate 2013 - s every day Kassi Oswald, M.D. 2014 Nitroglycerin 12/26/ Hx Patches 0.4mg/HR 180un 1 patch 414.01 [place] 2013 - 24HR its applied to Kassi Oswald, 03/31/ chest wall Q M.D. 2014 12 hours (not using patch since starting Ranexa 02/26/14) Ranexa 10/15/ Hx Tablets 1000mg 60tab 1 tab by Santos 2013 - ER 12HR s mouth twice a D. Brand, M.D. 2013 Clopidogrel 08/13/ Hx Tablets 75mg 90tab 1 po qd Santos 2012 D. Brand, .D. 2013 Ranexa 04/02/ Hx Tablets 500mg 60tab 1 tab by Santos 2012 - ER 12HR s mouth twice a D. Brand, .D. 2013 Nitroglycerin 03/01/ Hx Patches 0.4mg/HR 90uni 1 patch [place] 2012 - 24HR ts applied to Kassi Oswald, 04/02/ chest wall M.D. 2012 daily in the am and take off at night Plavix 12/22/ Hx Tablets 75mg 30tab 1 po qd Satnos 2012 DDada Brand, M.D. 2012 Aspirin / Hx Tablets 81mg 1 po qd Unknown - 2017 Lopressor / Hx Tablets 50mg 180ta 1 po bid Unknown 0000 - bs 2012 Nitroglycerin / Hx Patches 0.4mg/HR 30uni 1 under Steve S. 0000 - 24HR ts tongue, january De La Fuente, 04/26/ repeat 3x DO [facility] 2017 Victoza / Hx Solution 1.8mg 1Mon 1.8 mg sc qd Unknown - 2015 Percocet / Hx Tablets 10-325mg 60tab 1 po qid prn Unknown 0000 - s 2013 Altace / Hx Capsules 5mg 100ca 1 po qd Unknown 0000 - ps 2016 Pantoprazole / Hx Tablets 40mg 90tab 1 po qd Unknown Sodium 0000 - DR lepe 2015 Novolog Flexpen 00/00/ Hx Solution 100Unit/M 15ml for use Unknown 0000 L before meals as directed Morphine 00/00/ Hx Caps ER 60mg 120ca 1 po qid Unknown Sulfate ER 0000 - 24HR ps 2013 Ceftriaxone 00/00/ Hx Solution 2gm iv every 24 Unknown Sodium 0000 - Rec hours through 07/30/142013 Wellbutrin XL 00/00/ Hx Tablets 300mg 1 by mouth Unknown 0000 ER 24HR every day Lamictal /00/ Hx Tablets 150mg 1 by mouth in Unknown 0000 - qhs 2015 Invokana 00/00/ Hx Tablets 300mg 1 by mouth Unknown 0000 - every morning 2014 Zofran 00/00/ Hx Tablets 4mg 1 every 6 Unknown 0000 - hours as 07/16/ needed nausea 2013 Percocet 00/00/ Hx Tablets 10mg 120ta 1 every 4 Unknown 0000 - bs hours as needed 2016 Fentanyl 00/00/ Hx Patches 50mcg/HR one every 3rd Unknown 0000 72HR day Oxycodone HCL 00/ Hx Tablets 10mg 1 by mouth Unknown 0000 - every 4 hours 2015 Actigall 00/00/ Hx Capsules 300mg 1 po tid Unknown 0000 Brilinta 00/00/ Hx Tablets 90mg 180ta 1 tab by Santos 0000 - bs mouth twice a D. Brand, M.D. 2016 Mónica-Colace 00/00/ Hx Tablets 8.6-50mg 3 tabs po qPM Unknown 0000 Vitamin B-12 00/00/ Hx Tablets 1000mcg 1 by mouth Unknown 0000 every day Vitamin D3 00/00/ Hx Capsules 2000Unit 1 by mouth Unknown 0000 every day Morphine 00/00/ Hx Tablets 15mg 1 by mouth Unknown Sulfate 0000 every 6 hours as needed breakthrough pain Gabapentin 00/00/ Hx Capsules 300mg 3 by mouth Unknown 0000 - three times a 2016 Gabapentin 00/00/ Hx Capsules 400mg one cap qid Unknown 0000 Hydrocodone-Oleg 00/00/ Hx Tablets 7.5-325mg take 1 tablet Unknown taminophen 0000 - by mouth 05/01/ every 4 to 6 2017 hours if needed . Max Of 5 Tabs/Da (pt states he is not using) Pantoprazole / Hx Tablets 40mg Unknown Sodium 0000 Docusate Sodium / Hx Capsules 1000mg 1 by mouth Unknown 0000 - twice a day 2016 Medications Administered in Office Medication Date Status Form Strength Qnty SIG Indications Ordering Provider Dexamethasone 05/24/ Administered Injection Meek Sodium 2016 Evangelist Phosphate, 1 MG Depomedrol 40MG 03/21/ Administered Injection Meek 2016 MD Evangelist Dexamethasone 01/18/ Administered Injection Sodium 2016 Evangelist Phosphate, 1 MG Depomedrol 40MG 01/18/ Administered Injection Meek 2016 MD Evangelist Immunizations CPT Code Status Date Vaccine Lot # [id number] Given 06/28/2014 Influenza Virus Vaccine, Quadrivalent, Split, Preservative Free Vital Signs Date Vital Result Comment 01/04/2018 Height 69 inches 5'9" Weight 195.00 lb Heart Rate 68 /min BP Systolic Sitting 138 mmHg lue lg cuff BP Diastolic Sitting 80 mmHg lue lg cuff BP Systolic Standing 130 mmHg lue lg cuff BP Diastolic Standing 80 mmHg lue lg cuff Respiratory Rate 18 /min Pain Level 5 general pain BMI (Body Mass Index) 28.8 kg/m2 Ejection Fraction 40% 11/08/2017 echo 11/02/2017 Height 69 inches 5'9" Weight 211.00 lb with shoes Heart Rate 66 /min BP Systolic Sitting 100 mmHg Lue reg cuff BP Diastolic Sitting 70 mmHg Lue reg cuff BP Systolic Standing 112 mmHg Lue reg cuff BP Diastolic Standing 70 mmHg Lue reg cuff Respiratory Rate 17 /min BMI (Body Mass Index) 31.2 kg/m2 Ejection Fraction 40% 07/07/2017 Height 69 inches 5'9" Weight 200.00 lb Heart Rate 71 /min Respiratory Rate 15 /min Body Temperature 97.4 F Pain Level 8 BMI (Body Mass Index) 29.5 kg/m2 06/23/2017 Height 69 inches 5'9" Weight 200.00 lb BP Systolic 125 mmHg BP Diastolic 81 mmHg Respiratory Rate 16 /min Pain Level 7 BMI (Body Mass Index) 29.5 kg/m2 06/15/2017 Height 69 inches 5'9" Weight 201.00 lb with shoes Heart Rate 66 /min BP Systolic Sitting 108 mmHg Rue reg cuff BP Diastolic Sitting 78 mmHg Rue reg cuff BP Systolic Standing 104 mmHg Rue reg cuff BP Diastolic Standing 72 mmHg Rue reg cuff Respiratory Rate 16 /min BMI (Body Mass Index) 29.7 kg/m2 Ejection Fraction 35-40% 04/22/2017-echo 05/24/2017 Height 69 inches 5'9" Weight 200.00 lb Heart Rate 64 /min Respiratory Rate 16 /min Body Temperature 97.0 F Pain Level 5 BMI (Body Mass Index) 29.5 kg/m2 05/02/2017 Height 69 inches 5'9" Weight 205.12 lb with shoes BMI (Body Mass Index) 30.3 kg/m2 Ejection Fraction 35% - 40% echo 04/22/27 04/07/2017 Height 69 inches 5'9" Weight 200.00 lb Heart Rate 72 /min BP Systolic 124 mmHg BP Diastolic 80 mmHg Respiratory Rate 16 /min Body Temperature 97.3 F BMI (Body Mass Index) 29.5 kg/m2 03/21/2017 Height 69 inches 5'9" Weight 200.00 lb Heart Rate 65 /min Respiratory Rate 17 /min Pain Level 4 BMI (Body Mass Index) 29.5 kg/m2 01/18/2017 Height 69 inches 5'9" Weight 200.00 lb Heart Rate 82 /min Respiratory Rate 16 /min Body Temperature 97.0 F Pain Level 8 BMI (Body Mass Index) 29.5 kg/m2 04/08/2016 Height 69.75 inches 5'9.75" Weight 205.00 lb w/ shoes Heart Rate 78 /min reg BP Systolic Sitting 104 mmHg Rue, reg cuff BP Diastolic Sitting 80 mmHg Rue, reg cuff BP Systolic Standing 110 mmHg Rue BP Diastolic Standing 86 mmHg Rue Respiratory Rate 16 /min BMI (Body Mass Index) 29.6 kg/m2 Ejection Fraction 68% as of 02/24/2009 01/09/2016 Height 69.75 inches 5'9.75" Weight 201.00 lb with shoes Heart Rate 62 /min BP Systolic Sitting 118 mmHg LA reg cuff BP Diastolic Sitting 74 mmHg LA reg cuff BP Systolic Standing 116 mmHg LA reg cuff BP Diastolic Standing 80 mmHg LA reg cuff Respiratory Rate 16 /min BMI (Body Mass Index) 29.0 kg/m2 Ejection Fraction 68% 02/24/09 11/07/2015 Height 69.75 inches 5'9.75" Weight 199.00 lb with shoes Heart Rate 62 /min BP Systolic Sitting 144 mmHg LA reg cuff BP Diastolic Sitting 86 mmHg LA reg cuff BP Systolic Standing 142 mmHg LA reg cuff BP Diastolic Standing 84 mmHg LA reg cuff Respiratory Rate 17 /min BMI (Body Mass Index) 28.8 kg/m2 Ejection Fraction 68% date 06/26/2009 ECHO 07/18/2015 Height 69.75 inches 5'9.75" Weight 197.00 lb Heart Rate 76 /min BP Systolic Sitting 120 mmHg LA reg cuff BP Diastolic Sitting 96 mmHg LA reg cuff BP Systolic Standing 114 mmHg LA BP Diastolic Standing 88 mmHg LA Respiratory Rate 14 /min BMI (Body Mass Index) 28.5 kg/m2 04/01/2015 Height 69.75 inches 5'9.75" Weight 226.00 lb Heart Rate 68 /min BP Systolic Sitting 120 mmHg left arm, reg cuff BP Diastolic Sitting 80 mmHg left arm, reg cuff BP Systolic Standing 118 mmHg left arm, reg cuff BP Diastolic Standing 84 mmHg left arm, reg cuff Respiratory Rate 20 /min BMI (Body Mass Index) 32.7 kg/m2 Ejection Fraction 42% 02/25/14 NLM 12/05/2014 Height 69.75 inches 5'9.75" Weight 210.00 lb w/ shoes Heart Rate 62 /min reg BP Systolic Sitting 110 mmHg LA, reg cuff BP Diastolic Sitting 64 mmHg LA, reg cuff BP Systolic Standing 106 mmHg LA BP Diastolic Standing 66 mmHg LA Respiratory Rate 16 /min BMI (Body Mass Index) 30.3 kg/m2 09/05/2014 Height 69.75 inches 5'9.75" Weight 226.00 lb Heart Rate 80 /min BP Systolic Sitting 122 mmHg BP Diastolic Sitting 80 mmHg Respiratory Rate 14 /min Body Temperature 96.8 F BMI (Body Mass Index) 32.7 kg/m2 07/30/2014 Height 69.75 inches 5'9.75" Weight 228.00 lb Heart Rate 58 /min BP Systolic Sitting 112 mmHg BP Diastolic Sitting 70 mmHg Respiratory Rate 14 /min Body Temperature 96.8 F BMI (Body Mass Index) 32.9 kg/m2 07/16/2014 Height 69.75 inches 5'9.75" Weight 223.00 lb Heart Rate 60 /min BP Systolic Sitting 104 mmHg BP Diastolic Sitting 64 mmHg Respiratory Rate 12 /min Body Temperature 96.5 F BMI (Body Mass Index) 32.2 kg/m2 03/06/2014 Height 69.75 inches 5'9.75" Weight 252.00 lb with shoes Heart Rate 64 /min BP Systolic Sitting 110 mmHg LA lg cuff BP Diastolic Sitting 78 mmHg LA lg cuff BP Systolic Standing 100 mmHg LA lg cuff BP Diastolic Standing 70 mmHg LA lg cuff Respiratory Rate 16 /min BMI (Body Mass Index) 36.4 kg/m2 12/26/2013 Height 69.75 inches 5'9.75" Weight 248.00 lb Heart Rate 72 /min BP Systolic Sitting 112 mmHg Ra large cuff BP Diastolic Sitting 80 mmHg Ra large cuff BP Systolic Standing 116 mmHg Ra BP Diastolic Standing 80 mmHg Ra Respiratory Rate 16 /min BMI (Body Mass Index) 35.8 kg/m2 07/05/2013 Height 69 inches 5'9" Weight 245.00 lb Heart Rate 72 /min BP Systolic Sitting 102 mmHg LA reg cuff BP Diastolic Sitting 72 mmHg LA reg cuff BP Systolic Standing 104 mmHg LA BP Diastolic Standing 78 mmHg LA BMI (Body Mass Index) 36.2 kg/m2 06/16/2011 Height 70 inches 5'10" Weight 223.00 lb Heart Rate 75 /min BP Systolic 120 mmHg BP Diastolic 80 mmHg Respiratory Rate 16 /min BMI (Body Mass Index) 32.0 kg/m2 Results Test Date Test Result H/L Range Note Laboratory test 05/04/2017 Point of Care 204 mg/dL High 70-100 1 finding Glucose Laboratory test 05/04/2017 Surgical Pathology SEE RESULT 2 finding BELOW Laboratory test 05/04/2017 Point of Care 223 mg/dL High 70-100 3 finding Glucose Laboratory test 05/04/2017 Point of Care 244 mg/dL High 70-100 4 finding Glucose Order 11/07/2015 EKG <pending> Laboratory test 09/02/2014 C Reactive Protein 9.16 mg/L High < 5.00 5 finding Comp Metabolic Panel 09/02/2014 Sodium 133 mmol/L 133-145 Potassium 3.8 mmol/L 3.5-5.0 Chloride 99 mmol/L Low 101-111 Co2 Carbon Dioxide 21 mmol/L Low 22-32 Anion Gap 13 mmol/L High 2-11 Glucose 269 mg/dL High 70-100 Blood Urea Nitrogen 21 mg/dL 6-24 Creatinine 0.74 mg/dL 0.67-1.17 BUN/Creatinine Ratio 28.4 High 8-20 Calcium 9.9 mg/dL 8.6-10.3 Total Protein 7.5 g/dL 6.4-8.9 Albumin 4.6 g/dL 3.2-5.2 Globulin 2.9 g/dL 2-4 Albumin/Globulin Ratio 1.6 1-3 Total Bilirubin 0.50 mg/dL 0.2-1.0 Alkaline Phosphatase 70 U/L 34-104 Alt 11 U/L 7-52 Ast 9 U/L Low 13-39 Egfr Non- 114.4 >60 Egfr 147.1 >60 6 CBC Auto Diff 09/02/2014 White Blood Count 12.4 10^3/uL High 4.8-10.8 Red Blood Count 5.11 10^6/uL 4.0-5.4 Hemoglobin 15.4 g/dL 14.0-18.0 Hematocrit 45 % 42-52 Mean Corpuscular Volume 88 fL 80-94 Mean Corpuscular Hemoglobin 30 pg 27-31 Mean Corpuscular HGB Conc 34 g/dL 31-36 Red Cell Distribution Width 14 % 10.5-15 Platelet Count 253 10^3/uL 150-450 Mean Platelet Volume 9 um3 7.4-10.4 Abs Neutrophils 7.9 10^3/uL High 1.5-7.7 Abs Lymphocytes 3.4 10^3/uL 1.0-4.8 Abs Monocytes 0.8 10^3/uL 0-0.8 Abs Eosinophils 0.2 10^3/uL 0-0.6 Abs Basophils 0.1 10^3/uL 0-0.2 Abs Nucleated RBC 0.01 10^3/uL Granulocyte % 63.7 % 38-83 Lymphocyte % 27.2 % 25-47 Monocyte % 6.8 % 1-9 Eosinophil % 1.6 % 0-6 Basophil % 0.7 % 0-2 Nucleated Red Blood Cells % 0.1 Laboratory test finding 07/22/2014 C Reactive Protein 4.47 mg/L < 5.00 7 Comp Metabolic Panel 07/22/2014 Sodium 138 mmol/L 133-145 Potassium 4.2 mmol/L 3.5-5.0 8 Chloride 100 mmol/L Low 101-111 Co2 Carbon Dioxide 29 mmol/L 22-32 Anion Gap 9 mmol/L 2-11 Glucose 207 mg/dL High 70-100 Blood Urea Nitrogen 8 mg/dL 6-24 Creatinine 0.84 mg/dL 0.67-1.17 BUN/Creatinine Ratio 9.5 8-20 Calcium 9.6 mg/dL 8.6-10.3 Total Protein 6.6 g/dL 6.4-8.9 Albumin 4.4 g/dL 3.2-5.2 Globulin 2.2 g/dL 2-4 Albumin/Globulin Ratio 2.0 1-3 Total Bilirubin 0.40 mg/dL 0.2-1.0 Alkaline Phosphatase 75 U/L 34-104 Alt 23 U/L 7-52 Ast 19 U/L 13-39 Egfr Non- 98.8 >60 Egfr 127.1 >60 9 CBC Auto Diff 07/22/2014 White Blood Count 8.1 10^3/uL 4.8-10.8 Red Blood Count 4.85 10^6/uL 4.0-5.4 Hemoglobin 14.5 g/dL 14.0-18.0 Hematocrit 43 % 42-52 Mean Corpuscular Volume 88 fL 80-94 Mean Corpuscular Hemoglobin 30 pg 27-31 Mean Corpuscular HGB Conc 34 g/dL 31-36 Red Cell Distribution Width 14 % 10.5-15 Platelet Count 209 10^3/uL 150-450 Mean Platelet Volume 9 um3 7.4-10.4 Abs Neutrophils 4.6 10^3/uL 1.5-7.7 Abs Lymphocytes 2.5 10^3/uL 1.0-4.8 Abs Monocytes 0.8 10^3/uL 0-0.8 Abs Eosinophils 0.1 10^3/uL 0-0.6 Abs Basophils 0 10^3/uL 0-0.2 Abs Nucleated RBC 0 10^3/uL Granulocyte % 56.6 % 38-83 Lymphocyte % 31.6 % 25-47 Monocyte % 9.5 % High 1-9 Eosinophil % 1.8 % 0-6 Basophil % 0.5 % 0-2 Nucleated Red Blood Cells % 0 Laboratory test finding 07/15/2014 C Reactive Protein 5.58 mg/L High < 5.00 10 Comp Metabolic Panel 07/15/2014 Sodium 136 mmol/L 133-145 Potassium 4.3 mmol/L 3.7-5.6 Chloride 98 mmol/L Low 101-111 Co2 Carbon Dioxide 28 mmol/L 22-32 Anion Gap 10 mmol/L 2-11 Glucose 336 mg/dL High 70-100 Blood Urea Nitrogen 11 mg/dL 6-24 Creatinine 0.99 mg/dL 0.67-1.17 BUN/Creatinine Ratio 11.1 8-20 Calcium 9.6 mg/dL 8.6-10.3 Total Protein 6.6 g/dL 6.4-8.9 Albumin 4.1 g/dL 3.2-5.2 Globulin 2.5 g/dL 2-4 Albumin/Globulin Ratio 1.6 1-3 Total Bilirubin 0.40 mg/dL 0.2-1.0 Alkaline Phosphatase 79 U/L 34-104 Alt 25 U/L 7-52 Ast 12 U/L Low 13-39 Egfr Non- 81.7 >60 Egfr 105.1 >60 11 CBC Auto Diff 07/15/2014 White Blood Count 8.9 10^3/uL 4.8-10.8 Red Blood Count 4.84 10^6/uL 4.0-5.4 Hemoglobin 14.4 g/dL 14.0-18.0 Hematocrit 42 % 42-52 Mean Corpuscular Volume 87 fL 80-94 Mean Corpuscular Hemoglobin 30 pg 27-31 Mean Corpuscular HGB Conc 34 g/dL 31-36 Red Cell Distribution Width 13 % 10.5-15 Platelet Count 262 10^3/uL 150-450 Mean Platelet Volume 9 um3 7.4-10.4 Abs Neutrophils 5.6 10^3/uL 1.5-7.7 Abs Lymphocytes 2.5 10^3/uL 1.0-4.8 Abs Monocytes 0.7 10^3/uL 0-0.8 Abs Eosinophils 0.1 10^3/uL 0-0.6 Abs Basophils 0.1 10^3/uL 0-0.2 Abs Nucleated RBC 0 10^3/uL Granulocyte % 62.5 % 38-83 Lymphocyte % 28.1 % 25-47 Monocyte % 7.4 % 1-9 Eosinophil % 1.3 % 0-6 Basophil % 0.7 % 0-2 Nucleated Red Blood Cells % 0 Basic Metabolic Panel 03/01/2014 Sodium 134 mmol/L 133-145 Potassium 4.3 mmol/L 3.7-5.6 Chloride 100 mmol/L Low 101-111 Co2 Carbon Dioxide 23 mmol/L 22-32 Anion Gap 11 mmol/L 2-11 Glucose 354 mg/dL High 70-100 Blood Urea Nitrogen 11 mg/dL 6-24 Creatinine 0.89 mg/dL 0.67-1.17 BUN/Creatinine Ratio 12.4 8-20 Calcium 9.6 mg/dL 8.6-10.3 Egfr Non- 92.9 >60 Egfr 119.4 >60 12 Lipid Profile (Trig/Chol/HDL) 06/19/2012 Triglycerides 226 mg/dL High 40- 200 Cholesterol 208 mg/dL High Less than 200 13 HDL Cholesterol 38 mg/dL Low 40-60 14 Cholesterol/HDL Ratio 5.5 AVERAGE High 1-4.44 LDL Cholesterol 124.8 mg/dL High Less Than 100 Basic Metabolic Panel 06/19/2012 Sodium 139 mmol/L 133-145 Potassium 3.9 mmol/L 3.5-5.0 Chloride 107 mmol/L 101-111 Co2 Carbon Dioxide 29.0 mmol/L 22-32 Anion Gap 3.0 mmol/L 2-11 Glucose 95 mg/dL 70-100 Blood Urea Nitrogen 9 mg/dL 6-24 Creatinine 0.90 mg/dL 0.50-1.40 BUN/Creatinine Ratio 10.0 8-20 Calcium 9.0 mg/dL 8.1-9.9 Egfr Non- 92.1 >60 Egfr 118.4 >60 15 1 Supervisor Assembly Stock: [id number] 2 SEE RESULT BELOW Name: GWYN MIRELES : [address]: Steve Rob MD Acct: [id number] Unit: [id number] AGE: 47 Location: ICU [id number] Re05/04/17 Dis: 05/05/17 SEX: M Status: DIS Jesu SPEC: [id number] WILL: 05/04/17-[address] [facility] [address]: Steve Rob MD REQ: [id number] RECD: 05/04/17101 STATUS: SOUT _ ORDERED: LEVEL 3 FINAL DIAGNOSIS Gallbladder, cholecystectomy: -- Chronic cholecystitis. -- Cholelithiasis. PRE-OPERATIVE DIAGNOSIS Calculus of gallbladder with chronic cholecystitis GROSS DESCRIPTION The specimen is received in formalin labeled, Gallbladder, and consists of an 8.0 x 3.2 x 3.0 cm intact gallbladder. The serosa is glistening smooth simms-pink with scant adherent yellow fat. Within the lumen, there are a few black thick spiculated choleliths ranging from 0.2 cm to 0.4 cm admixed with abundant green yellow viscid bile. The mucosa is reticulated simms and the wall thickness averages 0.1 cm. Fitness [employer] Manager sections, one cassette. Signed (signature on file) Apryl Ibrahim MD [id number] END OF REPORT * ML=Testing performed at Main Lab DEPARTMENT OF PATHOLOGY, [address] [place] [address] Flaquito Rose M.D. Director [facility] # [id number] 3 Supervisor Assembly Stock: [id number] Supervisor Assembly Stock: [id number] 5 Acute inflammation: >10.00 6 Because ethnic data is not always readily available, this report includes an eGFR for both -Americans and non- Americans. The National Kidney Disease Education Program (NKDEP) does not endorse the use of the MDRD equation for patients that are not between the ages of 18 and 70, are , have extremes of body size, muscle mass, or nutritional status, or are non- or non-. According to the National Kidney Foundation, irrespective of diagnosis, the stage of the disease is based on the level of kidney function: Stage Description GFR(mL/min/1.73 m(2)) 1 Kidney damage with normal or decreased GFR 90 2 Kidney damage with mild decrease in GFR 60-89 3 Moderate decrease in GFR 30-59 4 Severe decrease in GFR 15-29 5 Kidney failure <15 (or dialysis) 7 Acute inflammation: >10.00 8 Potassium reference range changed effective 07/21/14 9 Because ethnic data is not always readily available, this report includes an eGFR for both -Americans and non- Americans. The National Kidney Disease Education Program (NKDEP) does not endorse the use of the MDRD equation for patients that are not between the ages of 18 and 70, are , have extremes of body size, muscle mass, or nutritional status, or are non- or non-. According to the National Kidney Foundation, irrespective of diagnosis, the stage of the disease is based on the level of kidney function: Stage Description GFR(mL/min/1.73 m(2)) 1 Kidney damage with normal or decreased GFR 90 2 Kidney damage with mild decrease in GFR 60-89 3 Moderate decrease in GFR 30-59 4 Severe decrease in GFR 15-29 5 Kidney failure <15 (or dialysis) 10 Acute inflammation: >10.00 11 Because ethnic data is not always readily available, this report includes an eGFR for both -Americans and non- Americans. The National Kidney Disease Education Program (NKDEP) does not endorse the use of the MDRD equation for patients that are not between the ages of 18 and 70, are , have extremes of body size, muscle mass, or nutritional status, or are non- or non-. According to the National Kidney Foundation, irrespective of diagnosis, the stage of the disease is based on the level of kidney function: Stage Description GFR(mL/min/1.73 m(2)) 1 Kidney damage with normal or decreased GFR 90 2 Kidney damage with mild decrease in GFR 60-89 3 Moderate decrease in GFR 30-59 4 Severe decrease in GFR 15-29 5 Kidney failure <15 (or dialysis) 12 Because ethnic data is not always readily available, this report includes an eGFR for both -Americans and non- Americans. The National Kidney Disease Education Program (NKDEP) does not endorse the use of the MDRD equation for patients that are not between the ages of 18 and 70, are , have extremes of body size, muscle mass, or nutritional status, or are non- or non-. According to the National Kidney Foundation, irrespective of diagnosis, the stage of the disease is based on the level of kidney function: Stage Description GFR(mL/min/1.73 m(2)) 1 Kidney damage with normal or decreased GFR 90 2 Kidney damage with mild decrease in GFR 60-89 3 Moderate decrease in GFR 30-59 4 Severe decrease in GFR 15-29 5 Kidney failure <15 (or dialysis) 13 Desirable: Less than 200 MG/DL Borderline-High Risk: 200-239 MG/DL High-Risk: 240 MG/DL and over 14 HDL Interpretation: Undesirable: High Risk: Less than 40 MG/DL Desirable: Low Risk: Greater than 60 MG/DL 15 Because ethnic data is not always readily available, this report includes an eGFR for both -Americans and non- Americans. The National Kidney Disease Education Program (NKDEP) does not endorse the use of the MDRD equation for patients that are not between the ages of 18 and 70, are , have extremes of body size, muscle mass, or nutritional status, or are non- or non-. According to the National Kidney Foundation, irrespective of diagnosis, the stage of the disease is based on the level of kidney function: Stage Description GFR(mL/min/1.73 m(2)) 1 Kidney damage with normal or decreased GFR 90 2 Kidney damage with mild decrease in GFR 60-89 3 Moderate decrease in GFR 30-59 4 Severe decrease in GFR 15-29 5 Kidney failure <15 (or dialysis) Procedures Date CPT Code Description Status Comment 11/02/2017 82125 EKG Tracing & Interpretation Completed 10/24/2017 61470 EKG, Interpretation Only Completed 10/23/2017 36702 EKG, Interpretation Only Completed 10/22/2017 76718 EKG, Interpretation Only Completed 10/21/2017 74535 EKG, Interpretation Only Completed 10/21/2017 40912 ECHO Transthorasic Realtime 2D W Completed Doppler & Color Flow Hosp 10/20/2017 49495 Cardiac Cath,LT Hrtmincl Completed Intraprocedural Ink LT Ventricul Mammary 10/20/2017 14508 Revascularization Acute Completed Total/Subtotal Occlusion 08/20/2017 32151 EKG, Interpretation Only Completed 06/15/2017 47808 EKG Tracing & Interpretation Completed 06/10/2017 Diabetic Retinal Eye Exam Completed Document: 06/10/17 - Consult Ophthalmology-[facility] Document: 06/10/17 - Cons Ophthalmology-[place] 05/24/201775723 Inject Tendon Sheath Or Ligament Completed Aponeurosis Eg Plantar Fascia 05/20/2017 07343 EKG, Interpretation Only Completed 05/05/2017 41541 EKG, Interpretation Only Completed 05/04/2017 37604 Laparoscopy Cholecystectomy Completed 05/04/2017 75974 EKG, Interpretation Only Completed 05/04/2017 84996 Laparoscopy Cholecystectomy Completed 04/25/2017 77997 EKG, Interpretation Only Completed 04/24/2017 08509 EKG, Interpretation Only Completed 04/22/2017 38368 EKG, Interpretation Only Completed 04/22/2017 55122 Catheter Placement In Coronary Completed Artery 04/22/2017 33524 ECHO Transthorasic Realtime 2D W Completed Doppler & Color Flow Hosp 03/21/2017 11842 Inject/Drain Joint/Bursa Major Completed 01/18/2017 60606 Inject Tendon Sheath Or Ligament Completed Aponeurosis Eg Plantar Fascia 01/18/2017 88200 Inject/Drain Joint/Bursa Major Completed 08/10/2016 35048 EKG, Interpretation Only Completed 08/10/2016 61628 Stress Test Supervsn W/Out I/R Completed 08/10/2016 24926 Treadmill Interp/Report Only Completed 04/08/2016 85464 EKG Tracing & Interpretation Completed 01/09/2016 92084 EKG Tracing & Interpretation Completed 11/07/2015 24413 EKG Tracing & Interpretation Completed 07/18/2015 60047 EKG Tracing & Interpretation Completed 04/01/2015 95884 EKG Tracing & Interpretation Completed 03/21/2015 92929 EKG, Interpretation Only Completed 03/20/2015 08822 Pmvsf-Nzewmkglz-Ggapjltbpp Completed 03/20/2015 43529 Intravascular Blood Flow Velocity Completed 03/20/2015 11641 Cardiac Cath,LT Hrtmincl Completed Intraprocedural Ink LT Ventricul Mammary 03/20/2015 97374 EKG, Interpretation Only Completed 03/20/2015 32750 Revascularization Coronary Artery Completed Bypass Graft 12/10/2014 80603 Removal Devitalization Tissue Completed Wound Less Than Equal 20 Square CM 12/05/2014 41679 EKG Tracing & Interpretation Completed 11/28/2014 73532 Debridement Skin,& sq Tissue Completed 07/02/2014 02737 EKG, Interpretation Only Completed 02/25/2014 16297 Treadmill Interp/Report Only Completed 02/25/2014 48092 Stress Test Supervsn W/Out I/R Completed 02/24/2014 10989 EKG, Interpretation Only Completed 02/23/2014 13164 Cardiac Cath,LT Hrtmincl Completed Intraprocedural Ink LT Ventricul Mammary 02/23/2014 67462 EKG, Interpretation Only Completed 12/26/2013 67975 EKG Tracing & Interpretation Completed 03/01/2013 87825 EKG Tracing & Interpretation Completed 06/16/2012 59909 Cardiac Cath,LT Hrtmincl Completed Intraprocedural Ink LT Ventricul Mammary 06/16/2012 48493 Coronary Angiography With Completed Catheter Placement In Bpyass Grafts 06/15/2012 63572 EKG, Interpretation Only Completed 06/16/2011 13135 EKG Tracing & Interpretation Completed 05/27/2011 94704 Cardiac Cath,LT Hrtmincl Completed Intraprocedural Ink LT Ventricul Mammary 05/27/2011 84182 Left Heart Cath. Incl S/I Completed Coronaries, Angio S/I V Gram If Done 11/05/2004 84715 Color Doppler Completed 11/05/2004 03375 Pulse Doppler & Continuous Completed Wave 11/05/2004 88339 Echocardiogram Completed Encounters Type Date Location Provider CPT E/M Dx Office Visit 11/02/2017 [facility] Santos Oswald 94180 I25.10 4:00p [facility] M.Kassi Z95.1 E78.5 Office Visit 10/24/2017 4:10p [facility] Santos Oswald, 96422 I21.4 [facility] Viktoriya I25.10 Office Visit 10/23/2017 3:03p [facility] Delma Galicia M.D., 86437 I21.4 Photonics Engineering Technician At [facility], FSCAI I25.10 Office Visit 10/22/2017 11:27a [facility] Delma Galicia M.D., 64405 I21.4 Photonics Engineering Technician At [facility], FSCAI I25.10 Office Visit 10/21/2017 3:02p [facility] Delma Galicia M.D., 40208 I21.4 Photonics Engineering Technician At [facility], [facility]SC[facility] I25.10 Office Visit 10/20/2017 3:05p [facility] Delma Galicia M.D., 45898 I21.4 Photonics Engineering Technician At [facility], FSCAI R07.9 R79.89 Office Visit 10/19/2017 2:20p [facility] Maki De Souza, 94593 K31.84 Assoc,pc Hospitalists Viktoriya F12.10 E11.59 G43.A1 K31.84 G43.A1 E11.59 Office Visit 08/21/2017 12:37p [facility] Assoc,pc Faviola Kunz, 37640 R11.2 Hospitalists MDenae E13.10 I25.10 K31.84 Office Visit 08/20/2017 12:35p [facility] Assoc,pc Melanie Hooper, 45930 R11.2 Hospitalists E11.10 I25.10 K31.84 Office Visit 07/07/2017 1:00p [facility] Meek Burrows 11755 S46.211D Of Denise Blanca MD M75.21 M75.51 Office Visit 06/23/2017 2:00p [facility] Meek Burrows 88174 S46.211D Of Denise Blanca MD M75.41 M75.51 Office Visit 06/15/2017 9:00a [facility] Irene Oswald, 92544 I25.10 Man Sadler E11.43 I10 Office Visit 05/24/2017 1:45p [facility] Meek Burrows 99905 S46.211D Denise Blanca MD Office Visit 05/21/2017 9:13a [facility] Faviola Kunz, 21685 R11.2 Assoc,pc Hospitalists M.DDada E11.42 Z79.4 F32.89 Office Visit 05/19/2017 9:12a [facility] Assoc,[place] [address] R11.2 Hospitalists E11.42 F32.89 Z79.4 Office Visit 05/13/2017 7:05a [facility] Assoc,pc Faviola Kunz, 97874 R11.2 Hospitalists M.DDada E11.43 I25.10 Z79.4 Office Visit 05/12/2017 7:05a [facility] Assoc,pc Faviola Kunz, 47391 R11.2 Hospitalists M.DDada E11.43 I25.10 Z79.4 Office Visit 05/11/2017 7:04a [facility] [address] R11.2 Assoc,pc Hospitalists M.DDada E11.43 I25.10 Z79.4 Office Visit 05/05/2017 11:02a [facility] John Mccarthy 62161 I25.810 Viktoriya Jane Office Visit 05/04/2017 8:43a [facility] Shruti Minor M.D. 62667 R94.31 [facility] R11.0 I25.10 Office Visit 05/02/2017 3:00p [facility] Zarina Velasquez, 18178 I25.83 Photonics Engineering Technician At [facility] F[facility], FSCAI Office Visit 04/26/2017 7:00a [facility] Lindsay, 75981 K80.00 Photonics Engineering Technician PA Office Visit 04/26/2017 8:02a [facility] Assoc,pc Faviolatimi Kunz, 77315 I21.4 Hospitalists MDenae R11.2 E78.5 I10 Office Visit 04/25/2017 7:00a [facility] [place], 66886 K80.00 Photonics Engineering Technician PA Office Visit 04/25/2017 7:50a [facility] Faviola Kunz, 16355 I21.4 Assoc,pc Hospitalists MDenae R11.2 E78.5 Office Visit 04/24/2017 2:32p [facility] Rob Jauregui M.D. 28129 I21.4 I25.10 I25.5 Office Visit 04/24/2017 7:00a [facility] [place] [address] K80.00 [facility] Office Visit 04/24/2017 7:50a [facility] Faviola Kunz, 15282 I21.4 Hospitalists MDenae R11.2 E78.5 Office Visit 04/23/2017 2:33p [facility] Rob Jauregui M.D. 04675 I21.4 I25.10 Office Visit 04/23/2017 7:00a [facility] Steve Rob, 82838 K80.00 [facility] Office Visit 04/23/2017 7:49a [facility] Afua Gomez, N.P. 41544 I21.4 Hospitalists R11.2 E78.5 Office Visit 04/22/2017 7:49a [facility],pc Manjula Woods, 25962 I21.4 Hospitalists MDenae R11.2 E78.5 Office Visit 04/22/2017 7:00a [facility] Jb Hawkins, 40105 K80.20 Of [facility] PA R07.9 Office Visit 04/22/2017 2:29p [facility] Rob Jauregui, 11226 I25.810 Viktoriya R79.89 R07.9 Office Visit 04/21/2017 7:48a [facility],pc John Chang, 55226 K92.2 Hospitalists N.P. I25.10 E78.5 I10 Office Visit 04/07/2017 1:45p [facility] [place] [address] K80.10 Of [facility] Office Visit 03/21/2017 8:30a [facility] Meek Burrows 79456 S46.102D Of Denise Blanca MD S46.211D M75.41 M75.42 M75.51 M75.52 Office Visit 01/24/2017 3:17p [facility] Assoc, [place] [address] E13.10 Hospitalists E87.2 R11.2 I25.10 Office Visit 01/23/2017 3:16p [facility] Assoc, [place] [address] E13.10 Hospitalists E87.2 R11.2 I25.10 Office Visit 01/18/2017 10:30a [facility] [place] [address] S46.102A Of Denise Blanca MD S46.211A M75.52 M75.51 S46.212A Office Visit 08/10/2016 2:16p [facility] Jossie Friend, 13348 R07.9 Assoc, [employer] Hospitalists E11.8 I25.10 G62.9 Office Visit 08/09/2016 2:13p [facility], John Chang, 67488 R07.9 Hospitalists N.P. G62.9 E11.8 I25.10 Office Visit 04/08/2016 9:45a [facility] Santos Oswald, 86285 R07.9 Man Sadler I25.9 R94.31 I25.119 Office Visit 01/09/2016 8:30a [facility] TOM Burgess 92969 R07.9 I25.9 I25.119 R94.31 Office Visit 11/07/2015 1:30p [facility] Irene Oswald, 64011 R07.9 Man Sadler I25.9 I25.10 I25.119 Office Visit 07/18/2015 3:00p [facility] Santos Oswald, 75983 R07.9 Man Sadler I25.9 I25.10 R94.31 Office Visit 07/12/2015 9:34a [facility] Assoc, [place] [address] R11.2 Hospitalists R07.9 Office Visit 04/21/2015 4:18p [facility] Kalen Galicia M.D., 41749 414.9 Photonics Engineering Technician At [facility], [facility] 786.50 Office Visit 04/21/2015 1:09p [facility] Oneida Parikh, 67151 786.50 Hospitalists N.P. 414.00 250.60 401.9 Office Visit 04/20/2015 4:15p [facility] Zarina Velasquez, 09036 787.01 Photonics Engineering Technician At [facility] HARI DIXON, FSCAI 794.31 Office Visit 04/20/2015 1:09p [facility] [address] 414.00 Assoc, Hospitalists M.Kassi 786.50 250.60 401.9 Office Visit 04/01/2015 1:00p [facility] Santos Oswald, 57144 414.01 Photonics Engineering Technician At [facility] Viktoriya 414.02 401.9 Office Visit 03/22/2015 10:56a [facility] Of Zarina Velasquez, 90479 410.70 Photonics Engineering Technician At [facility] HARI DIXON, [facility] Office Visit 03/22/2015 9:31a [facility] Assoc, Santi Mulligan, 06568 410.70 Hospitalists M.DDada 574.20 250.00 401.9 Office Visit 03/21/2015 9:31a [facility],wilfredo Mulligan, 43309 410.70 Hospitalists M.DDada 574.20 250.00 401.9 Office Visit 03/21/2015 10:55a [facility] Zarina Lemos Eva, 34801 410.70 Photonics Engineering Technician At [facility] HARI DIXON, FSCAI Office Visit 03/20/2015 10:54a [facility] Of Zarina Lemos Eva, 78891 414.9 Photonics Engineering Technician At [facility] HARI DIXON, FSCAI 787.01 786.59 790.99 Office Visit 03/20/2015 9:30a [facility] John Chang, 03926 410.70 Assoc,pc Hospitalists N.P. 414.00 250.00 401.9 Office Visit 12/05/2014 8:30a [facility] Santos Oswald, 72949 414.01 Man Sadler 414.02 786.50 Office Visit 10/10/2014 9:27a [facility] Assoc, [place] [address] 789.00 Hospitalists 536.3 574.20 787.01 Office Visit 10/08/2014 9:26a [facility] John Emigrant, 17806 789.00 Assoc, Hospitalists N.PDada 787.01 414.00 250.00 Office Visit 09/05/2014 2:00p [facility] Sanya KingDada Cathy, 03106 707.15 Infectious Diseases M.D. 730.17 Office Visit 07/30/2014 8:30a [facility] Sanya KingDada Marlontiarafabiola, 42872 728.0 Infectious Diseases M.D. 707.15 Office Visit 07/16/2014 8:30a [facility] Sanya KingDada Cathy, 50682 686.9 Infectious Diseases M.D. 787.02 Office Visit 07/04/2014 11:31a [facility] Hussain Saavedra, 48240 410.70 Assoc, Hospitalists M.D. 686.9 250.00 401.9 Office Visit 07/03/2014 11:29a [facility] Manjula Woods, 30273 410.70 Hospitalists M.DDada 686.9 401.9 250.00 Office Visit 07/03/2014 8:47a [facility] Sanya KingDada Cathy, 67856 681.10 Infectious Diseases M.D. 250.60 357.2 041.11 041.85 414.9 Office Visit 07/02/2014 11:28a [facility], Manjula Woods, 93024 410.70 Hospitalists M.D. 250.00 686.9 401.9 Office Visit 03/06/2014 9:45a [facility] Santos Oswald, 04931 414.9 Man M.DDada 414.02 786.51 Office Visit 02/25/2014 10:23a [facility] Santos Oswald, 71445 414.9 Photonics Engineering Technician M.D. 786.50 Office Visit 02/24/2014 2:51p [facility] Of Kalen Galicia M.D., 55454 786.50 [facility], [facility] Office Visit 02/24/2014 2:16p [facility] Oneida Parikh, 04894 786.51 Hospitalists N.P. 414.02 250.02 401.9 Office Visit 02/23/2014 2:15p [facility] Assoc,pc Oneida Parikh, 88266 786.51 Hospitalists N.P. 414.02 250.02 401.9 Office Visit 12/26/2013 10:30a [facility] Of Santos Oswald, 79927 414.01 Photonics Engineering Technician M.D. 414.02 414.9 Office Visit 07/05/2013 12:15p [facility] Of Santos Oswald, 53997 414.01 Photonics Engineering Technician M.D. 414.02 414.9 786.50 Office Visit 03/30/2013 1:45p [facility] Santos Oswald, 90639 414.9 Photonics Engineering Technician M.D. Office Visit 03/01/2013 12:30p [facility] Santos Oswald, 36889 414.9 Photonics Engineering Technician M.D. 414.02 401.9 Office Visit 09/28/2012 11:45a [facility] Santos Oswald, 51010 414.9 Photonics Engineering Technician M.D. Office Visit 06/28/2012 11:00a [facility] Santos Oswald, 06825 414.9 Photonics Engineering Technician M.D. 414.01 Office Visit 06/20/2012 2:20p [facility] Santos Oswald, 88381 414.9 Photonics Engineering Technician M.D. 411.1 Office Visit 06/19/2012 8:16a [facility], 18465 410.81 Assoc, Hospitalists N.P. 250.02 401.1 272.2 Office Visit 06/18/2012 8:15a [facility], 03672 410.81 Assoc,pc Hospitalists N.P. 250.02 401.1 272.2 Office Visit 06/17/2012 8:14a [facility] Assoc,[facility], 42030 401.1 Hospitalists N.P. 410.81 250.02 272.2 Office Visit 06/16/2012 8:13a [facility] Assoc, Severino Hamilton, 66238 410.81 Hospitalists N.P. 250.02 401.1 272.2 Office Visit 06/15/2012 11:04a [facility] Maki De Souza, 83909 786.51 Assoc,wilfredo Hospitalists Viktoriya 250.03 272.2 401.9 Office Visit 06/16/2011 11:40a [facility] Daisy Oneill D.O. 06484 786.50 414.01 V45.81 250.01 401.9 272.4 Office Visit 05/28/2011 12:46p [facility] Daisy Oneill D.O. 62827 786.50 250.01 V45.81 414.01 414.02 Office Visit 05/27/2011 12:45p [facility] Daisy Oneill D.O. 68144 786.50 250.01 V45.81 414.01 414.02 Office Visit 12/14/2010 1:00p [facility] Chuy Thomas, 38779 724.2 Man Sadler Plan of Care Future Appointment(s):04/05/2018 1:30 pm - Santos Oswald M.D. at [facility]01/04/2018 - [facility] M.D.I25.10 Athscl heart disease of [place] coronary artery w/o ang pctrsFollow up:3 [id number] Presence of aortocoronary bypass graft
[2018-01-27 19:33] LABS: ABS Basophils 0 10^3/ul (0-0.2); ABS Eosinophils 0 10^3/ul (0-0.6); ABS Lymphocytes 1.2 10^3/ul (1.0-4.8); ABS Monocytes 0.6 10^3/ul (0-0.8); ABS Neutrophils 15.4 10^3/ul (1.5-7.7); ABS Nucleated RBC 0 10^3/ul; Eosinophil % 0 % (0-6); Hematocrit 47 % (42-52); Hemoglobin 16.3 g/dl (14.0-18.0); Lymphocyte % 7.2 % (25-47); Mean Corpuscular HGB Conc 34 g/dl (31-36); Mean Corpuscular Hemoglobin 29 pg (27-31); Mean Corpuscular Volume 85 fL (80-94); Mean Platelet Volume 8.5 um3 (7.4-10.4); Nucleated Red Blood Cells % 0.1; Platelet Count 282 10^3/ul (150-450); Red Blood Count 5.61 10^6/ul (4.0-5.4); Red Cell Distribution Width 14 % (10.5-15); White Blood Count 17.2 10^3/ul (3.5-10.8)
[2018-01-27 19:51] LABS: EGFR Non-African American 81.6 (>60)
[2018-01-27] MEDS ORDERED: HYDROmorphone INJ* 2 MG/ML CARPUJECT SYRINGE ONE (19:55)
[2018-01-27] MEDS ORDERED: Piperacillin/Tazobac ADVAN(*) 3.375 GM in NS 0.9% 100 ML* 100 ML IVPB ONE (20:57)
[2018-01-27] MEDS ORDERED: PROCHLORPERAZINE INJ 5 MG/ML 2 ML VIAL ONE (21:06)
[2018-01-27] MEDS: PROCHLORPERAZINE INJ 5 MG/ML 2 ML VIAL IV PRN (21:16)
--- NOTE | 2018-01-27 21:56 | RAD ---
CLINICAL HISTORY: Vomiting and diffuse abdominal pain. COMPARISON: Most recent comparison CT examination is dated October 21, 2017 TECHNIQUE: Noncontrast CT examination of the abdomen and pelvis from the lung bases through the initial tuberosities. FINDINGS: VISUALIZED LUNG BASES: The visualized lung bases are grossly clear. There is no pleural effusion. ABDOMEN AND PELVIS: Evaluation of the solid organs and vasculature is limited without intravenous contrast. The liver, spleen, pancreas and adrenal glands are grossly normal in appearance. The gallbladder is surgically absent. The left kidney has normal in appearance without focal mass, calcification or signs of hydronephrosis. There is a 2 mm calcification at the lower pole of the right kidney which is otherwise normal in appearance. The urinary bladder measures 13.9 x 9.2 x 8.8 cm yielding an approximate volume of 911 mL. Evaluation of the gastrointestinal tract is limited without oral contrast. A small hiatal hernia is noted. The small and large bowel are not distended.The patient's normal appendix is identified in the right lower quadrant measuring 7 mm in diameter (axial image 35).. There is no gross retroperitoneal or mesenteric lymphadenopathy. There is coarse calcification in the otherwise normal-appearing prostate gland. Bilateral vasectomy clips are incidentally noted. The abdominal aorta and iliac arteries are normal in course and diameter. Degenerative changes include multilevel loss of intervertebral disc height involving the lower thoracic and lumbar spine.There are no sinister bone lesions. IMPRESSION: 1. Again seen is a small to moderate hiatal hernia. 2. No definite focal inflammatory change within the limitations of a noncontrast-enhanced CT. 3. The urinary bladder measures an approximate volume of 911 mL. Please correlate to signs and symptoms of neurogenic bladder or bladder outlet obstruction. 4. Additional chronic, degenerative and iatrogenic findings described in the body the report.
--- NOTE | 2018-01-27 22:08 | ED ---
Baljit Flanagan Natalie, scribed for Beau Ferris MD on 01/27/18 at 1926 . Abdominal Pain/Male - HPI Summary HPI Summary: The pt is a 47 y/o M presenting to the ED c/o intermittent epigastrium abd pain and vomiting starting yesterday. He states he vomited 100 times. The pain is rated 4/10 in severity. 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 Pt additionally c/o right anterior chest wall pain, SOB, and diarrhea. He takes Reglan for gastroparesis. He also has hx of cardiac problems. - History of Current Complaint Chief Complaint: EDAbdPain Stated Complaint: VOMITING/SOB Time Seen by Provider: 01/27/18 18:48 Hx Obtained From: Patient Onset/Duration: Sudden Onset, Still Present Timing: Constant Severity Initially: Moderate Severity Currently: Moderate Pain Intensity: 4 Pain Scale Used: 0-10 Numeric Location: Umbilical Radiates: Yes Radiates to: Chest - right anterior Character: Sharp Aggravating Factor(s): Nothing Alleviating Factor(s): Medications - Zofran Associated Signs And Symptoms: Positive: Nausea, Vomiting, Diarrhea, Other - SOB - Allergies/Home Medications Allergies/Adverse Reactions: Allergies Allergy/AdvReac Type Severity Reaction Status Date / Time cat dander Allergy Eyes Verified 01/02/18 11:30 Itchy/Swollen/Red/Watery erythromycin base Allergy Nausea And Verified 01/02/18 11:30 [From Erythrocin] Vomiting Home Medications: Home Medications Atorvastatin* [Lipitor*] 80 mg PO BEDTIME 01/27/18 [History Confirmed 01/27/18] Ezetimibe TAB* [Zetia TAB*] 10 mg PO QAM 01/27/18 [History Confirmed 01/27/18] Metformin ER (NF) 1,000 mg PO DAILY 01/27/18 [History Confirmed 01/27/18] Metoclopramide TAB* [Reglan TAB*] 10 mg PO AC 01/27/18 [History Confirmed ] Metoprolol Succinate XL TAB* [Toprol XL TAB*] 25 mg PO QAM 01/27/18 [History Confirmed 01/27/18] Metoprolol Succinate XL TAB* [Toprol XL TAB*] 50 mg PO QPM 01/27/18 [History Confirmed 01/27/18] Pantoprazole TAB (NF) [Protonix TAB (NF)] 40 mg PO QPM 01/27/18 [History Confirmed 01/27/18] Ranolazine (NF) [Ranexa (NF)] 1,000 mg PO BID 01/27/18 [History Confirmed ] Sucralfate TAB* [Carafate*] 1 gm PO BID 01/27/18 [History Confirmed 01/27/18] Ticagrelor* [Brilinta*] 90 mg PO BID 01/27/18 [History Confirmed 01/27/18] fentaNYL PATCH 50 MCG/HR* [Duragesic PATCH 50 Mcg/Hr*] 50 mcg TRANSDERM Q72H [History Confirmed 01/27/18] PMH/Surg Hx/FS Hx/Imm Hx Endocrine/Hematology History: Reports: Hx Diabetes - TYPE 2 Denies: Hx Thyroid Disease Cardiovascular History: Reports: Hx Angina, Hx Coronary Artery Disease, Hx Hypercholesterolemia, Hx Hypertension - CONTROLLED WITH MEDS, Hx Myocardial Infarction, Other Cardiovascular Problems/Disorders - CARDIAC STENTS. CABG. HLD Denies: Hx Congestive Heart Failure, Hx Pacemaker/ICD, Hx Valvular Heart Disease Respiratory History: Denies: Hx Asthma, Hx Chronic Obstructive Pulmonary Disease (COPD) GI History: Reports: Hx Gall Bladder Disease - Removed. 05/04/17, Hx Gastroesophageal Reflux Disease - GASTROPARESIS, Other GI Disorders - GALLSTONES Denies: Hx Ulcer History: Denies: Hx Dialysis, Hx Renal Disease Musculoskeletal History: Reports: Hx Arthritis - hips and back, Hx Back Problems , Hx Bursitis - SHOULDERS, Other Musculoskeletal History - Degenerative joint disease, chronic lower back pain. hx OF OSTEOMYLITIS Sensory History: Reports: Hx Contacts or Glasses - Glasses Denies: Hx Hearing Aid Opthamlomology History: Reports: Hx Contacts or Glasses - Glasses Neurological History: Reports: Hx Migraine - OCCASSIONALY PER PT REPORT 1-2x per year, Other Neuro Impairments/Disorders - young's palsy, PAIN CLINIC PATIENT Psychiatric History: Reports: Hx Anxiety, Hx Depression, Hx Panic Disorder - does ok with mri foot, Hx Bipolar Disorder - Cancer History Hx Chemotherapy: No - Surgical History Surgery Procedure, Year, and Place: 2008 triple heart bypass;. 2008 cardiac cath no stents;. CARDIAC CATH 2 stents placed March 2014 at [facility] [place]. GALLBLADDER Apr; Hx Anesthesia Reactions: No - Immunization History Date of Tetanus Vaccine: utd Date of Influenza Vaccine: utd Infectious Disease History: No Infectious Disease History: Reports: History Other Infectious Disease - spinal meningitis Denies: Hx Clostridium Difficile, Hx Hepatitis, Hx Human Immunodeficiency Virus (HIV), Hx of Known/Suspected MRSA, Hx Shingles, Hx Tuberculosis, Hx Known/ Suspected VRE, Hx Known/Suspected VRSA, Traveled Outside the [place] in Last 30 Days - Family History Known Family History: Positive: Cardiac Disease - [place] - mother & father, Hypertension, Diabetes - Social History Alcohol Use: None Alcohol Amount: 1-2 beers per week Hx Substance Use: No Substance Use Type: Reports: Marijuana Substance Use Comment - Amount & Last Used: "couple days ago" Hx Tobacco Use: Yes Smoking Status (MU): Former Smoker Type: Smokeless Tobacco Amount Used/How Often: Chews one tin per week Length of Time of Smoking/Using Tobacco: 4 years Have You Smoked in the Last Year: No Review of Systems Positive: Chest Pain - right anterior Positive: Shortness Of Breath Positive: Abdominal Pain - epigastrium, Vomiting, Diarrhea, Nausea All Other Systems Reviewed And Are Negative: Yes Physical Exam - Summary Physical Exam Summary: Appearance: The patient is well-nourished in no acute distress and in no acute pain. Skin: The skin is warm and dry and skin color reflects adequate perfusion. HEENT: The head is normocephalic and atraumatic. The pupils are equal and reactive. The conjunctivae are clear and without drainage. Nares are patent and without drainage. Mouth reveals moist mucous membranes and the throat is without erythema and exudate. The external ears are intact. The ear canals are patent and without drainage. The tympanic membranes are intact. Neck: the neck is supple with full range of motion and non-tender. There are no carotid bruits. There is no neck vein distension. Respiratory: Chest is tender in the parasternal area. Lungs are clear to auscultation and breath sounds are symmetrical and equal. Cardiovascular: Heart is regular rate and rhythm. There is no murmur or rub auscultated. There is no peripheral edema and pulses are symmetrical and equal. Abdomen: The abdomen is soft and tender in epigastrium. There are normal bowel sounds heard in all four quadrants and there is no organomegaly palpated. Musculoskeletal: There is no back tenderness noted. Extremities are non-tender with full range of motion. There is good capillary refill. There is no peripheral edema or calf tenderness elicited. Neurological: Patient is alert and oriented to person, place and time. The patient has symmetrical motor strength in all four extremities. Cranial nerves are grossly intact. Deep tendon reflexes are symmetrical and equal in all four extremities. Psychiatric: The patient has an appropriate affect and does not exhibit any anxiety or depression. Triage Information Reviewed: Yes Vital Signs On Initial Exam: Initial Vitals Temp Pulse Resp BP Pulse Ox 98.2 F 106 17 146/103 100 01/27/18 18:34 01/27/18 18:34 01/27/18 18:34 01/27/18 18:34 01/27/18 18:34 Vital Signs Reviewed: Yes Diagnostics - Vital Signs Vital Signs Temp Pulse Resp BP Pulse Ox 01/27/18 18:34 98.2 F 106 17 146/103 100 - Laboratory Lab Results: Lab Results 01/27/18 01/27/18 01/27/18 Range/Units 19:26 19:26 19:26 WBC 17.2 H (3.5-10.8) 10^3/ul RBC 5.61 H (4.0-5.4) 10^6/ul Hgb 16.3 (14.0-18.0) g/dl Hct 47 (42-52) % MCV 85 (80-94) fL MCH 29 (27-31) pg MCHC 34 (31-36) g/dl RDW 14 (10.5-15) % Plt Count 282 (150-450) 10^3/ul MPV 8.5 (7.4-10.4) um3 Neut % (Auto) 89.2 H (38-83) % Lymph % (Auto) 7.2 L (25-47) % [place] % (Auto) 3.5 (0-7) % Eos % (Auto) 0 (0-6) % Baso % (Auto) 0.1 (0-2) % Absolute Neuts (auto) 15.4 H (1.5-7.7) 10^3/ul Absolute Lymphs (auto) 1.2 (1.0-4.8) 10^3/ul Absolute Monos (auto) 0.6 (0-0.8) 10^3/ul Absolute Eos (auto) 0 (0-0.6) 10^3/ul Absolute Basos (auto) 0 (0-0.2) 10^3/ul Absolute Nucleated RBC 0 10^3/ul Nucleated RBC % 0.1 Sodium 134 L (139-145) mmol/L Potassium 3.5 (3.5-5.0) mmol/L Chloride 93 L (101-111) mmol/L Carbon Dioxide 18 L (22-32) mmol/L Anion Gap 23 H (2-11) mmol/L BUN 8 (6-24) mg/dL Creatinine 0.98 (0.67-1.17) mg/dL Est GFR ( Amer) 105.0 (>60) Est GFR (Non-Af Amer) 81.6 (>60) BUN/Creatinine Ratio 8.2 (8-20) Glucose 367 H (70-100) mg/dL Lactic Acid 4.5 H* (0.5-2.0) mmol/L Calcium 10.3 (8.6-10.3) mg/dL Total Bilirubin 1.10 H (0.2-1.0) mg/dL AST 14 (13-39) U/L ALT 17 (7-52) U/L Alkaline Phosphatase 84 (34-104) U/L Troponin I 0.01 (<0.04) ng/mL C-Reactive Protein 5.42 H (< 5.00) mg/L Total Protein 8.7 (6.4-8.9) g/dL Albumin 5.2 (3.2-5.2) g/dL Globulin 3.5 (2-4) g/dL Albumin/Globulin Ratio 1.5 (1-3) Lipase < 10 L (11.0-82.0) U/L Result Diagrams: 01/27/18 19:26 01/27/18 19:26 Lab Statement: Any lab studies that have been ordered have been reviewed, and results considered in the medical decision making process. - EKG 18:36 Cardiac Rate: NL EKG Rhythm: Sinus Rhythm - [address] Segment: Non-Specific EKG Comparison: No Significant Change - from previous EKGs Abdominal Pain Fem Course/Dx - Course Course Of Treatment: Mr. Kaye presented meeting septic criteria with abdominal pain. He received IV fluids, antibiotics and symptomatic treatment and is being admitted by the hospitalist service. - Diagnoses Provider Diagnoses: Sepsis, Abdominal pain Discharge - Sign-Out/Discharge Documenting (check all that apply): Sign-Out Patient Signing out patient TO: Monica Marinelli - This pt will be a sign-out to Dr. Marinelli at end of shift awaiting CT Abd/Pel. - Discharge Plan Referrals: Nicky DIXON,Tito Castillo [Primary Care Provider] - The documentation as recorded by the Baljit shore Natalie accurately reflects the service I personally performed and the decisions made by me, Beau Ferris MD.
[2018-01-27] MEDS ORDERED: Nitroglycerin TAB 0.4 MG* 0.4 MG TAB SL PRN (22:39)
[2018-01-27] MEDS ORDERED: Ondansetron INJ* 2 MG/ML VIAL IV PRN (22:42)
[2018-01-27] MEDS ORDERED: Acetaminophen TAB* 325 MG PO PRN (22:42)
[2018-01-27] MEDS ORDERED: Metoprolol Tartrate IV* 1 MG/ML 5 ML VIAL IV PRN (22:45)
[2018-01-27] MEDS ORDERED: Metoclopramide IV* 5 MG/ML 2 ML VIAL IV SLOW PU SCH (23:00)
[2018-01-27] MEDS ORDERED: Zosyn per Pharmacy* NOTE FOLLOW UP SCH (23:00)
[2018-01-27] MEDS ORDERED: Dextrose 50% Syringe 50 ML* 25 GM/50 ML SYRINGE IV PUSH PRN ×2 (23:01→23:08)
[2018-01-27] MEDS ORDERED: Insulin LISPRO* 1 UNITS UNIT SUBCUT ONE (23:08)
[2018-01-27] MEDS ORDERED: Magnesium Sulfate 2 GM IV* 2 GM/50 ML BAG IVPB ONE (23:54)
[2018-01-27] MEDS: HYDROmorphone INJ* 2 MG/ML CARPUJECT SYRINGE IV SLOW PU PRN (23:56)
[2018-01-28] MEDS: Omeprazole CAP* 20 MG PO SCH (01:12)
[2018-01-28] MEDS: fentaNYL PATCH 50 MCG/HR TRANSDERM SCH (01:29)
[2018-01-28] MEDS: PROCHLORPERAZINE INJ 5 MG/ML 2 ML VIAL IV PRN ×3 (02:38→22:14)
--- NOTE | 2018-01-28 04:19 | HP ---
CC: Dr. Tito Saunders * ADMISSION HISTORY AND PHYSICAL: DATE OF ADMISSION: 01/27/18 PRIMARY CARE PROVIDER: Dr. Tito Saunders. MY ATTENDING WHILE IN THE HOSPITAL: Agapito Barnett MD * (DICTATED BY TOM CAREY) CHIEF COMPLAINT: Vomiting x2 days. HISTORY OF PRESENT ILLNESS: Mr. Kaye is a 47-year-old male with a past medical history significant for gastroparesis; cyclic vomiting; uncontrolled diabetes mellitus; coronary artery disease, status post CABG and PCI; severe neuropathy; hyperlipidemia; hypertension; chronic pain; and GERD who presents with 2 days of abdominal pain and vomiting dark material. The patient also has associated chest pain, which radiates into his neck, is worse with breathing, reproduced with palpation, feels somewhat like his previous [place], but is much less intense and feels like chest pain that he usually gets in association with severe vomiting. The patient feels short of breath with his chest pain and vomiting. The patient's chest pain is not waxing and waning. The patient denies sweating. The patient did not take anything at home for his chest pain. The patient states that his emesis has been dark and been getting darker with a coffee ground consistency as it has been going on. He states that this is his normal pattern for when he vomits and states that he has had previous GI bleed, but cannot state specifics. The patient does not know when his last endoscopy or colonoscopy was. The patient took Zofran at home, which helped moderately with his vomiting. The patient cannot identify anything else to help with vomiting. The patient has a couple of episodes of diarrhea earlier today which he stated were dark. The patient has not urinated since 2 p.m. today. The patient has never had an issue before to his knowledge with urinary retention. The patient denies any lower abdominal pain. The patient denies dysuria before this began. The patient does not know what his recent blood sugars have been. The patient denies fevers or chills. The patient denies recent rash, changes in his medication, changes in his diet, changes in his food intake. The patient smokes marijuana daily including today. The patient in the emergency department was found to have a white blood cell count of 17.2, lactic acid of 4.5. No hemoglobin. Anion gap of 23, lipase was less than 10, CRP of 5.[address] scan of the abdomen, which showed a distended bladder with no inflammatory changes. He was admitted to the hospital for intractable nausea and vomiting, lactic acidosis, chest pain, urinary retention and possible sepsis. The patient took all of his medications today, but due to constant vomiting, does not know how long they were in his stomach. PAST MEDICAL HISTORY: Gastroparesis; cyclical vomiting; diabetes mellitus type 2; neuropathy; hyperlipidemia; coronary artery disease, status post CABG and PCI ; hyperlipidemia.; hypertension; chronic pain; depression; GERD; insomnia. PAST SURGICAL HISTORY: CABG in 2008; cholecystectomy in 2017. MEDICATIONS: On admission: 1. Aspirin 81 mg p.o. daily. 2. Nitroglycerin patch transdermal q.p.m. 3. Zofran 8 mg p.o. b.i.d. as needed. 4. Nitroglycerin 0.4 mg sublingual q.5 minutes as needed. 5. Terazosin 2 mg p.o. at bedtime. 6. Metformin 1000 mg p.o. daily. 7. Ranexa 1000 mg p.o. b.i.d. 8. Atorvastatin 80 mg p.o. at bedtime. 9. 10 mg p.o. q.a.m. 10. Metoprolol succinate 50 mg p.o. q.p.m. 11. Metoprolol succinate 25 mg p.o. q.a.m. 12. Fentanyl patch 50 mcg transdermal q.72 hours. 13. Pantoprazole 40 mg p.o. q.p.m. 14. Ticagrelor 90 mg p.o. b.i.d. 15. Sucralfate 1 g p.o. b.i.d. 16. Metoclopramide 10 mg p.o. a.c. ALLERGIES: CAT DANDER, ERYTHROMYCIN. FAMILY HISTORY: The patient's mother and father both have CHF. The patient's sister is alive and well. The patient's child is alive and well. SOCIAL HISTORY: The patient denies ever smoking tobacco. The patient denies alcohol use. The patient smokes marijuana daily. 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 The patient is and has 1 child. REVIEW OF SYSTEMS: A 14-point review of systems was reviewed and is negative except as above in the HPI. PHYSICAL EXAMINATION GENERAL: The patient is a 47-year-old male who appears older than stated age, sitting the bed, in severe distress from pain, frequently vomiting during this examination. VITAL SIGNS: Temperature 98.2, pulse rate 106, respiratory rate 17, oxygen saturation 100% on room air, blood pressure 146/103. HEENT: Head: Normocephalic, atraumatic. Sclerae anicteric. No conjunctival injection. Nasal mucosa moist. Oral mucosa moist. There is posterior pharyngeal erythema. There is bile noted on the tongue. No exudates. NECK: Supple, nontender. No lymphadenopathy. No carotid bruit auscultated. Pain with palpation over the bilateral jaw and paratracheal areas. RESPIRATORY: Clear to auscultation bilaterally. No wheezes, rales or rhonchi. Good air exchange bilaterally. CARDIAC: Regular rate and rhythm, grade 3/6 systolic ejection murmur heard best at the right upper sternal border, tachycardic. Pulses 2+ in bilateral dorsalis pedis, posterior tibialis and radial areas. No lower extremity edema noted. Precordium tender to palpation. ABDOMEN: Soft, tender to palpation throughout with voluntary guarding. No rigidity. Bowel sounds hypoactive, but present in all 4 quadrants. No hepatosplenomegaly. No abdominal bruits auscultated. GENITOURINARY: Suprapubic tenderness. No CVA tenderness. SKIN: Clean, dry and intact. No rash. NEUROLOGIC: Cranial nerves II through XII intact. No focal deficits. Alert and oriented x3. SENSATION: The patient not cooperative with sensation testing. PSYCHIATRIC: Anxious, but was pleasant and cooperative. LABORATORY DATA: White blood cell count 17.2, hemoglobin 16.3, hematocrit 47, platelet count 282, sodium 134, potassium 3.5, chloride 93, carbon dioxide 18, anion gap 23, BUN 8, creatinine 0.98, glucose 367, lactic acid 4.5, calcium 10.3 , total bilirubin 1.1, AST 14, ALT 17, alkaline phosphatase 84, troponin I 0.01 , CRP 5.42, protein 8.7, albumin 5.2, globulin 3.5, lipase less than 10. STUDIES DONE WHILE IN THE HOSPITAL: Electrocardiogram shows sinus tachycardia, J- point elevation in V1, V2, V3. No reciprocal changes, incomplete bundle branch pattern consistent with previous EKGs, QTc is 473, rate is 91. Abdomen and pelvis CT read as again seen is a small to moderate hiatal hernia. No definite local inflammatory change within limitations of noncontrast enhanced CT. Urinary bladder measures approximately volume of 911 mL. Please correlate with signs and symptoms of neurogenic bladder or bladder outlet obstruction. Degenerative and iatrogenic changes described in the body of the report. ASSESSMENT AND PLAN: Mr. Kaye is a 47-year-old male with past medical history significant for gastroparesis, coronary artery disease, cyclical vomiting, diabetes mellitus type 2 with neuropathy, chronic pain, who presents with what appears to be a new episode of cyclic vomiting. The patient also has chest pain and suspicious ST segment changes on his EKG, though these appear to be chronic. The patient also has bladder obstruction and meets sepsis criteria. 1. Cyclical vomiting: This likely represents another episode of patient's cyclical vomiting. The patient has what appears to be coffee ground emesis and dark stool. We will send both of these for gastric occult testing. The patient 's heparin will be held at this time. The patient will be continued on his Brilinta and aspirin due to recent stenting and concern for coronary artery disease. The patient will not be started on a heparin drip. The patient will have Reglan and Zofran as needed. The patient will be continued on his antacid therapy. Consideration for GI consult if gastric occult blood is positive and patient becomes anemic should be made. 2. Chest pain: The patient has a strong history of coronary artery disease; however, due to the fact that his pain in pleuritic, reproducible with palpation and similar to other episodes of cyclic vomiting as well as a negative troponin and EKG changes suspicious for ST elevation consistent with previous examinations and concave in the anterior leads, the patient will not be treated as a ST-elevation myocardial infarction at this point. We will trend patient's troponins and the patient will be given his home nitro patch to relieve his chest pain. The patient will not be started on a heparin drip due to above concern for GI bleed. The patient will have additional nitroglycerin available sublingually as needed for worsening chest pain. If the patient's troponin's should go up, the risks of the heparin drip will likely outweigh the benefit and a Cardiology consult should be obtained for concern for re-stent thrombosis. 3. Diabetes mellitus type 2: The patient has a blood glucose of 376. The patient has an anion gap. The patient does not have urine to test for ketones at this time. We will get a VBG. The patient will be hydrated. The patient has a lactic acidosis, which likely explains his anion gap. We will repeat lactic acid at the same time as the VBG. We will hydrate vigorously. We will start on fingerstick blood glucose and give 10 units of lispro insulin now. 4. Urinary retention: The patient has not urinated since 2 p.m. today. The patient's urinary retention is of unknown chronicity. Apart from that, the patient does not have pain associated with this. The patient will have a Flores inserted. This very possibly is related to worsening neuropathy from his diabetes. A void trial should be attempted, but a referral for urodynamic testing will likely be indicated after this hospitalization. 5. Hyperlipidemia: Continue Zetia and atorvastatin. 6. Hypertension: The patient is currently hypertensive, continue metoprolol p.o. and IV as needed for blood pressure and to decrease myocardial oxygen demand. 7. Chronic pain: The patient will have his fentanyl patch as well as Dilaudid as needed. 8. Gastroesophageal reflux disease: Continue the patient's antireflux therapy of pantoprazole, sucralfate as well as his Reglan. 9. Gastroparesis: Continue Reglan. 10. FEN: The patient will have a clear liquid diet and fluids at 100 mL an hour after he completes a 330 mL/kg bolus. 11. Sepsis criteria: The patient meets sepsis criteria, but due to tachycardia , lactic acidosis and white blood cell count; however, due to his low CRP and no obvious evidence for infection as well as alternative explanations for his white blood cell count, lactic acidosis given his vomiting, we will continue the patient on Zosyn; however, this is likely not need to be continued. The patient will have a urinalysis and a chest x-ray. Zosyn will cover most urinary pathogens, intraabdominal infections as well as possible aspiration pathogens for his pneumonia. 12. DVT prophylaxis: The patient will have SCDs. At this time, heparin will be held due to concern for GI bleed. It should be initiated if his gastric and stool occult bloods are negative as he is at high risk. 13. Code status: The patient would like to be a full code. The patient would like his , Sheldon Apalovich, to be his surrogate decision maker. 14. Disposition: The patient will be admitted as inpatient. TIME SPENT: Approximately 60 minutes were spent on this admission, 30 of which were spent [id number] with the patient obtaining history and physical and discussing treatment plan. This plan has been discussed with my attending, Dr. Agapito Barnett, and he is in agreement. TOM CAREY [id number]/[facility] #: [id number] HENRY
[2018-01-28] MEDS ORDERED: Piperacillin/Tazobac ADVAN(*) 3.375 GM in NS 0.9% 100 ML* 100 ML IVPB SCH (05:00)
[2018-01-28] MEDS: Piperacillin/Tazobac ADVAN(*) 3.375 GM in NS 0.9% 100 ML* 100 ML IVPB SCH ×4 (05:08→22:52)
[2018-01-28] MEDS: Ondansetron INJ* 2 MG/ML SYRINGE (from 40/20 VIAL) IV PRN ×2 (05:09→20:13)
[2018-01-28] MEDS: oxyCODONE TAB* 5 MG TAB PO PRN (05:18)
[2018-01-28] MEDS ORDERED: LORazepam INJ* 2 MG/ML 1 ML VIAL IV ONE (05:53)
--- NOTE | 2018-01-28 08:19 | RAD ---
Indication: Evaluate for pneumonia. Single frontal view of the chest performed at 2330 hours was reviewed. Comparison is made with previous exam dated October 20, 2017. No mediastinal shift is noted. Heart is of normal size and configuration. Lung root appear clear. Patient status post changed sternal thoracotomy. IMPRESSION: NO ACTIVE CARDIOPULMONARY DISEASE IS NOTED.
[2018-01-28] MEDS: Ticagrelor* 90 MG TAB PO SCH ×2 (08:53→22:53)
[2018-01-28] MEDS: Insulin LISPRO* 1 UNITS UNIT SUBCUT SCH ×4 (08:53→22:16)
[2018-01-28] MEDS: Metoprolol Succinate XL TAB* 25 MG PO SCH (08:53)
[2018-01-28] MEDS: Aspirin EC TAB* 81 MG TAB.EC PO SCH (08:53)
[2018-01-28] MEDS: CMCS Ranolazine (NF) 500 MG TAB PO SCH ×2 (08:53→22:52)
[2018-01-28] MEDS: Ezetimibe TAB* 10 MG PO SCH (08:53)
[2018-01-28] MEDS: Metoclopramide IV* 5 MG/ML 2 ML VIAL IV SLOW PU SCH ×3 (08:54→20:12)
[2018-01-28] MEDS: fentaNYL Patch Check Q Shift 1 NOTE SCH ×2 (08:59→20:13)
[2018-01-28] MEDS ORDERED: Sucralfate TAB* 1 GM PO SCH (09:00)
[2018-01-28 09:17] LABS: EGFR Non-African American 78.8 (>60)
[2018-01-28 10:49] LABS: Urine Appearance Clear; Urine Blood Negative (Negative); Urine Color Yellow; Urine Ketones 1+ (Negative); Urine Protein Negative (Negative); Urine Specific Gravity 1.023 (1.010-1.030); Urine Urobilinogen Negative (Negative)
[2018-01-28] MEDS: Sucralfate TAB* 1 GM PO SCH ×2 (12:20→22:53)
[2018-01-28] MEDS: Metoprolol Succinate XL TAB* 50 MG PO SCH (17:11)
[2018-01-28] MEDS ORDERED: Nitroglycerin 0.4 MG/HR PATCH* (10 MG) TRANSDERM SCH (18:00)
--- NOTE | 2018-01-28 18:07 | PN ---
Subjective Date of Service: 01/28/18 Interval History: Patient was seen and examined earlier today. Reports feeling better this afternoon. He is drinking more fluids, getting IVF hydration as well. Denies nay recurrent nausea or vomiting since admission. Has been chest pain free, denies palpitations, abdominal pain, dizziness or headaches. Notes similar episodes in the past due to his known dx cyclic vomiting. No recent travelling, antibiotic intake or sick contact. Family History: Unchanged from Admission Social History: Unchanged from Admission Past Medical History: Unchanged from Admission Objective Active Medications: Acetaminophen (Tylenol Tab*) 650 mg PO Q6H PRN PRN Reason: FEVER/PAIN Last Admin: 01/28/18 13:08 Dose: 650 mg Aspirin (Aspirin Ec Tab*) 81 mg PO QAM [facility] Last Admin: 01/28/18 08:53 Dose: 81 mg Atorvastatin Calcium (Lipitor*) 80 mg PO BEDTIME [facility] Dextrose (D50w Syringe 50 Ml*) 12.5 gm IV PUSH .FOR FS < 60 - SS PRN PRN Reason: FS < 60 Ezetimibe (Zetia Tab*) 10 mg PO QAM [facility] Last Admin: 01/28/18 08:53 Dose: 10 mg Fentanyl (Duragesic Patch 50 Mcg/Hr*) 50 mcg TRANSDERM Q72H [facility] Last Admin: 01/28/18 01:29 Dose: 50 mcg Hydromorphone HCl (Dilaudid Inj*) 1 mg IV SLOW PU Q4H PRN PRN Reason: PAIN Last Admin: 01/27/18 23:56 Dose: 1 mg Lactated Ringer's (Lactated Ringers 1000 Ml Bag*) 1,000 mls @ 100 mls/hr IV PER RATE [facility] Last Admin: 01/28/18 13:03 Dose: 100 mls/hr Piperacillin Sod/Tazobactam (Sod 3.375 gm/ Sodium Chloride) 100 mls @ 200 mls/ hr IVPB Q6H [facility] Last Admin: 01/28/18 16:29 Dose: 200 mls/hr Insulin Human Lispro (Humalog*) 0 units SUBCUT ACHS [facility] PRN Reason: Protocol Last Admin: 01/28/18 17:11 Dose: 2 unit Metoclopramide HCl (Reglan Iv*) 10 mg IV SLOW PU 0200,0800,1400,2000 [facility] Last Admin: 01/28/18 12:59 Dose: 10 mg Metoprolol Succinate (Toprol Xl Tab*) 25 mg PO QAM [facility] Last Admin: 01/28/18 08:53 Dose: 25 mg Metoprolol Succinate (Toprol Xl Tab*) 50 mg PO QPM [facility] Last Admin: 01/28/18 17:11 Dose: 50 mg Metoprolol Tartrate (Lopressor Iv*) 5 mg IV Q6H PRN PRN Reason: SYSTOLIC BP GREATER THAN: Nitroglycerin (Nitroglycerin 10 Mg Patch*) 1 patch TRANSDERM QPM [facility] Last Admin: 01/28/18 17:12 Dose: Not Given Nitroglycerin (Nitroglycerin Tab 0.4 Mg*) 0.4 mg SL Q5M PRN PRN Reason: PAIN - CHEST Omeprazole (Prilosec Cap*) 20 mg PO 2100 [facility] Last Admin: 01/28/18 01:12 Dose: 20 mg Ondansetron HCl (Zofran Inj*) 4 mg IV Q6H PRN PRN Reason: NAUSEA Last Admin: 01/28/18 05:09 Dose: 4 mg Oxycodone HCl (Roxycodone Tab*) 5 mg PO Q4H PRN PRN Reason: PAIN Last Admin: 01/28/18 05:18 Dose: 5 mg Pharmacy Consult (Zosyn Per Pharmacy*) 1 note FOLLOW UP .ZOSYN PER PHARMACY [facility] Pharmacy Profile Note (Fentanyl Patch Check Q Shift) 1 note N/A 0700,1900 [facility] Last Admin: 01/28/18 08:59 Dose: 1 note Prochlorperazine Edisylate (Compazine Inj*) 10 mg IV Q6H PRN PRN Reason: NAUSEA/VOMITING Last Admin: 01/28/18 16:29 Dose: 10 mg Ranolazine (Ranexa (Nf)) 1,000 mg PO BID [facility] PRN Reason: Protocol Last Admin: 01/28/18 08:53 Dose: 1,000 mg Sucralfate (Carafate*) 1 gm PO 1100,2300 [facility] Last Admin: 01/28/18 12:20 Dose: 1 gm Terazosin HCl (Hytrin Cap*) 2 mg PO BEDTIME [facility] Ticagrelor (Brilinta*) 90 mg PO BID [facility] Last Admin: 01/28/18 08:53 Dose: 90 mg Vital Signs - 8 hr 01/28/18 15:15 Pulse Rate 82 Respiratory 22 Rate Blood Pressure 142/83 (mmHg) O2 Sat by Pulse 100 Oximetry Oxygen Devices in Use Now: None Appearance: Sitting in bed, appears comfortable and in NAD. Eyes: No Scleral Icterus, PERRLA Ears/Nose/Mouth/Throat: Clear Oropharnyx, Mucous Membranes Moist Neck: NL Appearance and Movements; NL JVP, Trachea Midline Respiratory: Symmetrical Chest Expansion and Respiratory Effort, Clear to Auscultation Cardiovascular: NL Sounds; No Murmurs; No JVD, RRR Abdominal: NL Sounds; No Tenderness; No Distention Lymphatic: No Cervical Adenopathy Extremities: No Edema, No Clubbing, Cyanosis Skin: No Rash or Ulcers Neurological: Alert and Oriented x 3, NL Sensation, NL Muscle Strength and Tone Nutrition: Taking PO's Result Diagrams: 01/27/18 19:26 01/28/18 01:30 Additional Lab and Data: Lab Results 01/27/18 01/27/18 01/27/18 Range/Units 19:26 19:26 19:26 WBC 17.2 H (3.5-10.8) 10^3/ul RBC 5.61 H (4.0-5.4) 10^6/ul Hgb 16.3 (14.0-18.0) g/dl Hct 47 (42-52) % MCV 85 (80-94) fL MCH 29 (27-31) pg MCHC 34 (31-36) g/dl RDW 14 (10.5-15) % Plt Count 282 (150-450) 10^3/ul MPV 8.5 (7.4-10.4) um3 Neut % (Auto) 89.2 H (38-83) % Lymph % (Auto) 7.2 L (25-47) % [place] % (Auto) 3.5 (0-7) % Eos % (Auto) 0 (0-6) % Baso % (Auto) 0.1 (0-2) % Absolute Neuts (auto) 15.4 H (1.5-7.7) 10^3/ul Absolute Lymphs (auto) 1.2 (1.0-4.8) 10^3/ul Absolute Monos (auto) 0.6 (0-0.8) 10^3/ul Absolute Eos (auto) 0 (0-0.6) 10^3/ul Absolute Basos (auto) 0 (0-0.2) 10^3/ul Absolute Nucleated RBC 0 10^3/ul Nucleated RBC % 0.1 Sodium 134 L (139-145) mmol/L Potassium 3.5 (3.5-5.0) mmol/L Chloride 93 L (101-111) mmol/L Carbon Dioxide 18 L (22-32) mmol/L Anion Gap 23 H (2-11) mmol/L BUN 8 (6-24) mg/dL Creatinine 0.98 (0.67-1.17) mg/dL Est GFR ( Amer) 105.0 (>60) Est GFR (Non-Af Amer) 81.6 (>60) BUN/Creatinine Ratio 8.2 (8-20) Glucose 367 H (70-100) mg/dL Lactic Acid 4.5 H* (0.5-2.0) mmol/L Calcium 10.3 (8.6-10.3) mg/dL Total Bilirubin 1.10 H (0.2-1.0) mg/dL AST 14 (13-39) U/L ALT 17 (7-52) U/L Alkaline Phosphatase 84 (34-104) U/L Troponin I 0.01 (<0.04) ng/mL C-Reactive Protein 5.42 H (< 5.00) mg/L Total Protein 8.7 (6.4-8.9) g/dL Albumin 5.2 (3.2-5.2) g/dL Globulin 3.5 (2-4) g/dL Albumin/Globulin Ratio 1.5 (1-3) Lipase < 10 L (11.0-82.0) U/L Diagnostic Imaging: Patient Name: GWYN MIRELES Medical Record#: [id number] Ordering Physician: Beau Ferris MD Acct.#: [id number] : 1970 Age: 47 Sex: M Location: EMERGENCY DEPARTMENT Exam Date: 01/27/182119 ADM Status: REG ER Order Information: CT ABD/PEL W/O Accession Number: [id number] CPT: 98728 CLINICAL HISTORY: Vomiting and diffuse abdominal pain. COMPARISON: Most recent comparison CT examination is dated October 21, 2017 TECHNIQUE: Noncontrast CT examination of the abdomen and pelvis from the lung bases through the initial tuberosities. IMPRESSION: 1. Again seen is a small to moderate hiatal hernia. 2. No definite focal inflammatory change within the limitations of a noncontrast -enhanced CT. 3. The urinary bladder measures an approximate volume of 911 mL. Please correlate to signs and symptoms of neurogenic bladder or bladder outlet obstruction. 4. Additional chronic, degenerative and iatrogenic findings described in the body the report. <Electronically signed by Maurice Paniagua MD in OV> 01/27/18 0052 Dictated By: Maurice Paniagua MD EKG Data: Reviewed with Dr. Moralez. No acute changes. Assess/Plan/Problems-Billing Assessment: A 47 y/o male with significant PMH for CAD, gastroparesis, cyclic vomiting and DM type 2 with associated neuropathy, who presented to ED with 2 days hx persistent nausea, vomiting, dehydaration and metabolic acidosis, with questionable ST changes on EKG although appears to be chronic. - Patient Problems (1) Nausea & vomiting Current Visit: Yes Status: Acute Comment: - Suspect diabetic gastroparesis. - Continue Omeprazole, Reglan. - Clinically improving - Coffee ground emesis yesterday, unsure about last EGD. Spoke with Dr. Robin who will see him for GI consultation. (2) Chest pain Current Visit: Yes Status: Acute Comment: - Likely secondary to emetogenic esophagitis. Appears pluritic and reproducible in nature. - Serial troponins were negative. - Continue PPI, sucralfate, and anti-emetics. - Repeat TTE (3) Upper GI bleed Current Visit: Yes Status: Acute Comment: - Hemodynamically stable, no evidence of active GI bleed - Likely secondary to violent vomiting, patient also admit inducing vomiting on occasionas by inserting finger in posterior pharynx. (4) CAD (coronary artery disease) Current Visit: No Status: Chronic Comment: - S/P s/p CABG and stenting. - Stable. - Continue aspirin, atorvastatin, metoprolol XL, NTG patch and ranexa. (5) Diabetes Current Visit: No Status: Chronic Comment: - Continue Lispro coverage per sliding scale (6) Dyslipidemia Current Visit: No Status: Chronic Comment: - Continue Atrovastatin (7) Gastroparesis Current Visit: No Status: Chronic Comment: - Continue home metoclopramide. (8) Hx of CABG Current Visit: No Comment: - Recent cardiac cath with stenting 10/2017 (9) Hypertension Current Visit: No Status: Chronic Comment: - Continue metoprolol, ramipril. (10) DVT prophylaxis Current Visit: No Status: Acute Comment: - SQ heparin. (11) Full code status Current Visit: No Status: Acute (12) Sepsis Current Visit: Yes Status: Acute Comment: - Although patient meets criteria for sepsis with leukocytosis, lactic acidosis and tachycardia. It's likely due to vomiting in lack of other definite source of infection. Will continue Zosyn and await urine culture. Status and Disposition: Inpatient. Anticipate discharge when medically stable.
--- NOTE | 2018-01-28 20:06 | CONS ---
CC: Dr. Barnett; Dr. Tito Saunders; Dr. Malena Robin GASTROENTEROLOGY CONSULTATION: DATE OF CONSULT: 01/28/18 HOSPITAL PROVIDER: Agapito Barnett MD PRIMARY CARE PROVIDER: Dr. Tito Saunders. REASON FOR CONSULTATION: Nausea, vomiting. HISTORY OF PRESENT ILLNESS: Bird Kaye is a very pleasant 47-year-old male with multiple significant comorbidities including gastroparesis, cyclic vomiting syndrome, uncontrolled diabetes mellitus, coronary artery disease, status post CABG with recent PCI on October 21, 2017, on Brilinta, severe neuropathy, hyperlipidemia, hypertension, GERD, chronic pain on opiates along with distant history of alcohol abuse and morphine addiction, who presented to [facility] with 2-day history of vomiting. He has previous history of several episodes of cyclic vomiting syndrome requiring hospital admissions in the past. He describes these episodes as sudden onset epigastric pain with vomiting food contents and non-bilious emesis. During these episodes, he also experiences chest pain. On admission, he was ruled out for acute coronary syndrome due to his extensive cardiac history. Gastroenterology was consulted today for further evaluation of the patient's severe episodes of vomiting. He had an upper endoscopy by Dr. Mercer on 10/09/14 and was normal at that time. He admits to poorly controlled diabetes. He is on Reglan for his gastroparesis around the clock. He also takes Pantoprazole 40 mg at night and Carafate 1 gm BID for his GERD and gastritis. He does admit to marijuana use. He states that smoking marijuana has actually improved his symptoms over the last few months. He denies any alcohol use. He is on chronic pain medication including a fentanyl pain patch, but he has been on this medicine for many years. He denies any recent sick contacts or febrile illnesses. His abdominal pain has subsided since admission to the emergency room. He does state that Zofran does help him occasionally with these episodes of nausea, vomiting, but this time, nothing seemed to work for him. He denies hematemesis. He admits to chronic constipation which he controls with various laxatives due to his chronic opioid medications. With this optimization of his bowel regimen, he typically has a bowel movement every few days. He cannot recall whether he has had a colonoscopy or not. There is no family history of gastrointestinal malignancies. He denies dysphagia, odynophagia. His weight has been relatively stable. PAST MEDICAL HISTORY: 1. Gastroparesis. 2. Cyclic vomiting syndrome. 3. Uncontrolled diabetes mellitus. 4. Neuropathy. 5. Hyperlipidemia. 6. Coronary artery disease, status post CABG and recent PCI in October 2017. 7. Hyperlipidemia. 8. Hypertension. 9. Chronic pain. 10. Depression. 11. GERD. 12. Insomnia. PAST SURGICAL HISTORY: 1. Upper endoscopy approximately 3 years ago. 2. CABG in 2008. 3. Cholecystectomy in 2016. 4. PCI in October 2017. HOME MEDICATIONS: 1. Aspirin 81 mg p.o. daily. 2. Nitroglycerin patch as needed. 3. Zofran as needed. 4. Nitroglycerin sublingual as needed. 5. Terazosin. 6. Metformin. 7. Ranexa. 8. Atorvastatin. 9. Metoprolol. 10. Fentanyl patch. 11. Pantoprazole 40 mg at night. 12. Brilinta daily. 13. Sucralfate 1 g p.o. b.i.d. 14. Metoclopramide 10 mg around the clock. ALLERGIES: ERYTHROMYCIN and CAT DANDER. FAMILY HISTORY: Mother and father have congestive heart failure. Sister is alive and well. SOCIAL HISTORY: He quit tobacco use several years ago and he did abuse alcohol in the past, but quit several years ago. He does smoke marijuana daily. REVIEW OF SYSTEMS: Review of systems on a 14-point scale have been reviewed. All pertinent positives and negatives have been noted above in the HPI. PHYSICAL EXAM: Vital Signs: Temperature is 97.9, pulse 86, respirations 18, oxygenation 100% on room air, blood pressure 149/93. Generally, the patient is alert and oriented x3, in no acute distress, well nourished, answering questions appropriately. HEENT: Normocephalic, atraumatic. Extraocular muscles intact. Neck is supple. Cardiovascular: Regular rate and rhythm. Pulmonary Exam: Clear to auscultation bilaterally. Abdomen: Soft, nontender, nondistended. No rebound, guarding, or rigidity. Bowel sounds are present in all 4 quadrants. No hepatosplenomegaly. There is surgical scar noted from previous CABG on his chest and abdomen. Extremities: No clubbing, cyanosis, or edema. Neurological Exam: No gross focal deficits. LABORATORY AND DIAGNOSTICS: WBC 17.2, hemoglobin 16.3, hematocrit 47, platelets 282. Sodium 138, potassium 3.7, chloride 101, CO2 16, anion gap 21, BUN 10, creatinine 1.01, glucose 386, calcium 9.1, magnesium 1.7. Total bilirubin 0.90. AST 11, ALT 15, alkaline phosphatase 79. Troponin 0.02. Total protein 7.3, albumin 4.3. CT of the abdomen and pelvis on 01/27/18 revealed small to moderate hiatal hernia, otherwise no acute process was seen. ASSESSMENT AND PLAN: Bird Kaye is a very pleasant 47-year-old male with multiple comorbidities including coronary artery disease status post CABG and recent PCI placement on Brilinta in October 2017, uncontrolled diabetes mellitus with severe neuropathy, hyperlipidemia, hypertension, chronic pain on chronic opiates, gastroesophageal reflux disease, gastroparesis, cyclic vomiting syndrome, who presented with episodes of vomiting and dehydration over the last 2 days. The patient was admitted for further workup. He states he feels better after receiving IV fluids. He has been able to tolerate clear liquids this morning. He states his abdominal pain has resolved. Gastroenterology was consulted today for possible endoscopy for further evaluation. The patient denies any NSAID use. He has been recently started on Brilinta in October 2017. He however states these symptoms were present prior to initiating Brilinta. He is also on aspirin 81 mg daily. He takes Reglan around the clock for his gastroparesis which seems to work well; however, he does have breakthrough symptoms requiring him in-patient hospital treatment. He attempts to manage these symptoms with using marijuana daily. His gastric occult blood was positive; however, he denies any rectal bleeding, melena, or any hematemesis. He does admit to gastroesophageal reflux disease. He is on Pantoprazole 40 mg therapy at night along with Carafate 1gm twice daily. He denies dysphagia, odynophagia. He does have a previous history of alcohol and tobacco abuse, but that was many years ago. He denies any current alcohol use. He has normal LFTs and WBC at this time. We will plan for an upper endoscopy on Tuesday for further evaluation of the patient's nausea, vomiting which is likely related to his gastroparesis and poorly uncontrolled diabetes. Patient' s hiatal hernia seen on CT imaging may also be contributing as well. Risks and benefits of EGD were discussed with the patient. He is agreeable to this. Currently, he is on a clear liquid diet. The patient may be advanced as tolerated. Continue pantoprazole therapy 40 mg daily along with Carafate 1 g p.o. b.i.d. as part of his home regimen and Zofran may be given as needed for nausea. Further recommendations will be provided as the patient's clinical course progresses. The patient will be maintained on Brilinta therapy due to his recent cardiac cath with PCI and drug-eluding stent placements on October. Thank you, Dr. Barnett for allowing us to participate in the care of your patient. If you should have any further questions or concerns, please do not hesitate to contact us. [id number]/[id number]/[facility] #: [id number] HENRY
[2018-01-28] MEDS: Terazosin CAP* 1 MG PO SCH (22:52)
[2018-01-28] MEDS: Atorvastatin* 80 MG TAB PO SCH (22:52)
[2018-01-29] MEDS: Omeprazole CAP* 20 MG PO SCH ×2 (01:15→19:34)
[2018-01-29] MEDS: HYDROmorphone INJ* 2 MG/ML CARPUJECT SYRINGE IV SLOW PU PRN (02:05)
[2018-01-29] MEDS: Metoclopramide IV* 5 MG/ML 2 ML VIAL IV SLOW PU SCH ×4 (02:05→19:33)
[2018-01-29] MEDS: Piperacillin/Tazobac ADVAN(*) 3.375 GM in NS 0.9% 100 ML* 100 ML IVPB SCH ×3 (04:32→16:42)
[2018-01-29 06:46] LABS: ABS Basophils 0.1 10^3/ul (0-0.2); ABS Eosinophils 0 10^3/ul (0-0.6); ABS Monocytes 1.1 10^3/ul (0-0.8); ABS Neutrophils 8.3 10^3/ul (1.5-7.7); ABS Nucleated RBC 0 10^3/ul; Eosinophil % 0.2 % (0-6); Hematocrit 37 % (42-52); Hemoglobin 13.1 g/dl (14.0-18.0); Lymphocyte % 24.1 % (25-47); Mean Corpuscular HGB Conc 36 g/dl (31-36); Mean Corpuscular Hemoglobin 30 pg (27-31); Mean Corpuscular Volume 84 fL (80-94); Mean Platelet Volume 8.1 um3 (7.4-10.4); Nucleated Red Blood Cells % 0; Platelet Count 211 10^3/ul (150-450); Red Cell Distribution Width 14 % (10.5-15); White Blood Count 12.6 10^3/ul (3.5-10.8)
[2018-01-29] MEDS: fentaNYL Patch Check Q Shift 1 NOTE SCH ×2 (06:54→19:30)
[2018-01-29 07:02] LABS: EGFR Non-African American 82.6 (>60)
[2018-01-29] MEDS ORDERED: Potassium Chlor TAB* 20 MEQ TAB.ER PO ONE (08:38)
[2018-01-29] MEDS: Insulin LISPRO* 1 UNITS UNIT SUBCUT SCH ×4 (08:43→20:58)
[2018-01-29] MEDS: Metoprolol Succinate XL TAB* 25 MG PO SCH (08:43)
[2018-01-29] MEDS: CMCS Ranolazine (NF) 500 MG TAB PO SCH ×2 (08:43→19:33)
[2018-01-29] MEDS: Ezetimibe TAB* 10 MG PO SCH (08:44)
[2018-01-29] MEDS: Ticagrelor* 90 MG TAB PO SCH ×2 (08:44→19:34)
[2018-01-29] MEDS: Aspirin EC TAB* 81 MG TAB.EC PO SCH (08:44)
[2018-01-29] MEDS: PROCHLORPERAZINE INJ 5 MG/ML 2 ML VIAL IV PRN ×3 (09:01→21:00)
[2018-01-29] MEDS ORDERED: Potassium Chloride IV* 40 MEQ in NS 0.9% 250 ML* 250 ML IVPB ONE (09:30)
[2018-01-29] MEDS ORDERED: KCL 20 MEQ/100 ML IVPREMIX* 20 MEQ/100 ML BAG IV SCH (10:00)
--- NOTE | 2018-01-29 10:34 | PN ---
Progress Note - Progress Note Date of Service: 01/29/18 - Gastroenterology Note: Patient seen and examined. Had episodes of nausea and emesis last night and this morning. No abdominal pain. No fevers. Vital Signs: Temp Pulse Resp BP Pulse Ox 98.3 F 64 16 108/65 99 01/29/18 07:29 01/29/18 07:29 01/29/18 07:38 01/29/18 07:29 01/29/18 07:29 Physical Examination: GENERAL: NAD. Laying in bed. CV: RRR. PULM: CTAB. ABDOMEN: Soft, NT/ND. EXT: No edema. Laboratory Results - last 24 hr 01/27/18 01/28/18 01/28/18 19:21 10:25 12:19 WBC RBC Hgb Hct MCV MCH MCHC RDW Plt Count MPV Neut % (Auto) Lymph % (Auto) Andrew % (Auto) Eos % (Auto) Baso % (Auto) Absolute Neuts (auto) Absolute Lymphs (auto) Absolute Monos (auto) Absolute Eos (auto) Absolute Basos (auto) Absolute Nucleated RBC Nucleated RBC % Sodium Potassium Chloride Carbon Dioxide Anion Gap BUN Creatinine Est GFR ( Amer) Est GFR (Non-Af Amer) BUN/Creatinine Ratio Glucose POC Glucose (mg/dL) 233 H Hemoglobin A1c 9.3 H Lactic Acid Calcium Urine Color Yellow Urine Appearance Clear Urine pH 5.0 Ur Specific [place] 1.023 Urine Protein Negative Urine Ketones 1+ A Urine Blood Negative Urine Nitrate Negative Urine Bilirubin Negative Urine Urobilinogen Negative Ur Leukocyte Esterase Negative Urine Glucose 3+(>=500 mg/dl) A 01/28/18 01/28/18 01/28/18 16:23 18:28 22:06 WBC RBC Hgb Hct MCV MCH MCHC RDW Plt Count MPV Neut % (Auto) Lymph % (Auto) Andrew % (Auto) Eos % (Auto) Baso % (Auto) Absolute Neuts (auto) Absolute Lymphs (auto) Absolute Monos (auto) Absolute Eos (auto) Absolute Basos (auto) Absolute Nucleated RBC Nucleated RBC % Sodium Potassium Chloride Carbon Dioxide Anion Gap BUN Creatinine Est GFR ( Amer) Est GFR (Non-Af Amer) BUN/Creatinine Ratio Glucose POC Glucose (mg/dL) 155 H 240 H Hemoglobin A1c Lactic Acid 1.2 Calcium Urine Color Urine Appearance Urine pH Ur Specific [place] Urine Protein Urine Ketones Urine Blood Urine Nitrate Urine Bilirubin Urine Urobilinogen Ur Leukocyte Esterase Urine Glucose 01/29/18 01/29/18 01/29/18 06:37 06:37 06:37 WBC 12.6 H RBC 4.40 Hgb 13.1 L Hct 37 L MCV 84 MCH 30 MCHC 36 RDW 14 Plt Count 211 MPV 8.1 Neut % (Auto) 66.5 Lymph % (Auto) 24.1 L Andrew % (Auto) 8.8 H Eos % (Auto) 0.2 Baso % (Auto) 0.4 Absolute Neuts (auto) 8.3 H Absolute Lymphs (auto) 3.0 Absolute Monos (auto) 1.1 H Absolute Eos (auto) 0 Absolute Basos (auto) 0.1 Absolute Nucleated RBC 0 Nucleated RBC % 0 Sodium 135 L Potassium 3.1 L Chloride 101 Carbon Dioxide 23 Anion Gap 11 BUN 8 Creatinine 0.97 Est GFR ( Amer) 106.2 Est GFR (Non-Af Amer) 82.6 BUN/Creatinine Ratio 8.2 Glucose 260 H POC Glucose (mg/dL) Hemoglobin A1c Lactic Acid < 0.3 L Calcium 9.0 Urine Color Urine Appearance Urine pH Ur Specific [place] Urine Protein Urine Ketones Urine Blood Urine Nitrate Urine Bilirubin Urine Urobilinogen Ur Leukocyte Esterase Urine Glucose 01/29/18 07:32 WBC RBC Hgb Hct MCV MCH MCHC RDW Plt Count MPV Neut % (Auto) Lymph % (Auto) Andrew % (Auto) Eos % (Auto) Baso % (Auto) Absolute Neuts (auto) Absolute Lymphs (auto) Absolute Monos (auto) Absolute Eos (auto) Absolute Basos (auto) Absolute Nucleated RBC Nucleated RBC % Sodium Potassium Chloride Carbon Dioxide Anion Gap BUN Creatinine Est GFR ( Amer) Est GFR (Non-Af Amer) BUN/Creatinine Ratio Glucose POC Glucose (mg/dL) 241 H Hemoglobin A1c Lactic Acid Calcium Urine Color Urine Appearance Urine pH Ur Specific [place] Urine Protein Urine Ketones Urine Blood Urine Nitrate Urine Bilirubin Urine Urobilinogen Ur Leukocyte Esterase Urine Glucose 47 yo male with multiple co-morbidities including CAD with CABG s/p PCI in 2017 on Brilinta, uncontrolled DM with neuropathy, HTN, HLD, chronic pain on opiates, hx of etoh abuse and addiction to morphine in the past, current marijuana use, gastroparesis and cyclic vomiting syndrome who presented with nausea/emesis and dehydration. Gastroenterology was consulted for further evaluation of nausea/emesis. CT imaging also revealed a moderate hiatal hernia. 1. Intractable Nausea/emesis ~May be secondary to gastroparesis due to uncontrolled DM with superimposed cyclic vomiting. ~Marijuana could also be exacerbating symptoms, although patient states he feels better using it. ~Chronic opiate use can also exacerbate his symptoms. ~Admitted with leukocytosis thus infectious process may also be contributing nausea/emesisa as well. ~Plan for diagnostic EGD tomorrow with Dr. Ravi to evaluate for PUD in the setting of anticoagulation (Brilinta) and further evaluate possible hiatal hernia. Patient is agreeable. Last EGD by Dr. Mercer was normal in 09/2014. ~NPO after midnight. ~On IVFs. ~Reglan 10 mg ATC, Zofran prn. ~Omeprazole 20 mg daily and Carafate 1gm BID. 2. Leukocytosis - improving. ~On Zosyn per primary team. 3. CAD with hx of CABG s/p PCI in 10/2017 with NIRAV ~On Brilinta daily. 4. DM - uncontrolled Further recommendations to follow. Please call us with any further questions or concerns. Malena Robin D.O.
[2018-01-29] MEDS: Sucralfate TAB* 1 GM PO SCH ×2 (11:53→22:25)
[2018-01-29] MEDS: NS 0.9% 1000 ML* 1,000 ML IV SCH ×2 (11:54→22:37)
--- NOTE | 2018-01-29 13:12 | PN ---
Subjective Date of Service: 01/29/18 Interval History: Mr. Kaye has not been feeling good today. He reports intermittent nausea and vomiting. His appetite is worse today. Denies chest pain, hematemesis , palpitations, abdominal pain, fever or chills. His lactic acidosis has resolved with adequate hydration. Seen by GI earlier today, intractable nausea and vomiting warrant an EGD tomorrow. He feels tired this afternoon, but is trying to get out of bed and eat some lunch. He has no other complaints. Family History: Unchanged from Admission Social History: Unchanged from Admission Past Medical History: Unchanged from Admission Objective Active Medications: Acetaminophen (Tylenol Tab*) 650 mg PO Q6H PRN PRN Reason: FEVER/PAIN Last Admin: 01/28/18 13:08 Dose: 650 mg Aspirin (Aspirin Ec Tab*) 81 mg PO QAM [facility] Last Admin: 01/29/18 08:44 Dose: 81 mg Atorvastatin Calcium (Lipitor*) 80 mg PO BEDTIME [facility] Last Admin: 01/28/18 22:52 Dose: 80 mg Dextrose (D50w Syringe 50 Ml*) 12.5 gm IV PUSH .FOR FS < 60 - SS PRN PRN Reason: FS < 60 Ezetimibe (Zetia Tab*) 10 mg PO QAM [facility] Last Admin: 01/29/18 08:44 Dose: 10 mg Fentanyl (Duragesic Patch 50 Mcg/Hr*) 50 mcg TRANSDERM Q72H [facility] Last Admin: 01/28/18 01:29 Dose: 50 mcg Hydromorphone HCl (Dilaudid Inj*) 1 mg IV SLOW PU Q4H PRN PRN Reason: PAIN Last Admin: 01/29/18 02:05 Dose: 1 mg Sodium Chloride (Ns 0.9% 1000 Ml*) 1,000 mls @ 100 mls/hr IV PER RATE [facility] Last Admin: 01/29/18 11:54 Dose: 100 mls/hr Potassium Chloride 40 meq/ (Sodium Chloride) 270 mls @ 67.5 mls/hr IVPB ONCE ONE Stop: 01/29/18 13:29 Last Admin: 01/29/18 10:00 Dose: 67.5 mls/hr Piperacillin Sod/Tazobactam (Sod 3.375 gm/ Sodium Chloride) 100 mls @ 25 mls/ hr IVPB Q8H [facility] Insulin Human Lispro (Humalog*) 0 units SUBCUT ACHS [facility] PRN Reason: Protocol Last Admin: 01/29/18 11:53 Dose: 4 unit Metoclopramide HCl (Reglan Iv*) 10 mg IV SLOW PU 0200,0800,1400,2000 [facility] Last Admin: 01/29/18 08:43 Dose: 10 mg Metoprolol Succinate (Toprol Xl Tab*) 25 mg PO QAM [facility] Last Admin: 01/29/18 08:43 Dose: 25 mg Metoprolol Succinate (Toprol Xl Tab*) 50 mg PO QPM [facility] Last Admin: 01/28/18 17:11 Dose: 50 mg Metoprolol Tartrate (Lopressor Iv*) 5 mg IV Q6H PRN PRN Reason: SYSTOLIC BP GREATER THAN: Nitroglycerin (Nitroglycerin 10 Mg Patch*) 1 patch TRANSDERM QPM [facility] Last Admin: 01/28/18 17:12 Dose: Not Given Nitroglycerin (Nitroglycerin Tab 0.4 Mg*) 0.4 mg SL Q5M PRN PRN Reason: PAIN - CHEST Omeprazole (Prilosec Cap*) 20 mg PO 2100 [facility] Last Admin: 01/29/18 01:15 Dose: 20 mg Ondansetron HCl (Zofran Inj*) 4 mg IV Q6H PRN PRN Reason: NAUSEA Last Admin: 01/28/18 20:13 Dose: 4 mg Oxycodone HCl (Roxycodone Tab*) 5 mg PO Q4H PRN PRN Reason: PAIN Last Admin: 01/28/18 05:18 Dose: 5 mg Pharmacy Consult (Zosyn Per Pharmacy*) 1 note FOLLOW UP .ZOSYN PER PHARMACY [facility] Pharmacy Profile Note (Fentanyl Patch Check Q Shift) 1 note N/A 0700,1900 [facility] Last Admin: 01/29/18 06:54 Dose: 1 note Prochlorperazine Edisylate (Compazine Inj*) 10 mg IV Q6H PRN PRN Reason: NAUSEA/VOMITING Last Admin: 01/29/18 09:01 Dose: 10 mg Ranolazine (Ranexa (Nf)) 1,000 mg PO BID [facility] PRN Reason: Protocol Last Admin: 01/29/18 08:43 Dose: 1,000 mg Sucralfate (Carafate*) 1 gm PO 1100,2300 [facility] Last Admin: 01/29/18 11:53 Dose: 1 gm Terazosin HCl (Hytrin Cap*) 2 mg PO BEDTIME [facility] Last Admin: 01/28/18 22:52 Dose: 2 mg Ticagrelor (Brilinta*) 90 mg PO BID [facility] Last Admin: 01/29/18 08:44 Dose: 90 mg Vital Signs - 8 hr 01/29/18 01/29/18 07:29 07:38 Temperature 98.3 F Pulse Rate 64 Respiratory 16 16 Rate Blood Pressure 108/65 (mmHg) O2 Sat by Pulse 99 Oximetry Oxygen Devices in Use Now: None Appearance: Appears tired, laying in bed, but comfortable and in NAD Eyes: No Scleral Icterus, PERRLA Ears/Nose/Mouth/Throat: Clear Oropharnyx, Mucous Membranes Moist Neck: NL Appearance and Movements; NL JVP, Trachea Midline Respiratory: Symmetrical Chest Expansion and Respiratory Effort, Clear to Auscultation Cardiovascular: NL Sounds; No Murmurs; No JVD, RRR Abdominal: NL Sounds; No Tenderness; No Distention Extremities: No Edema Skin: No Rash or Ulcers Neurological: Alert and Oriented x 3, NL Sensation, NL Muscle Strength and Tone Lines/Tubes/Other Access: Clean, Dry and Intact Peripheral IV - IVF changed to 0.9 NS @100 ml/hr Result Diagrams: 01/29/18 06:37 01/29/18 06:37 Additional Lab and Data: Lab Results 01/27/18 01/27/18 01/27/18 Range/Units 19:26 19:26 19:26 WBC 17.2 H (3.5-10.8) 10^3/ul RBC 5.61 H (4.0-5.4) 10^6/ul Hgb 16.3 (14.0-18.0) g/dl Hct 47 (42-52) % MCV 85 (80-94) fL MCH 29 (27-31) pg MCHC 34 (31-36) g/dl RDW 14 (10.5-15) % Plt Count 282 (150-450) 10^3/ul MPV 8.5 (7.4-10.4) um3 Neut % (Auto) 89.2 H (38-83) % Lymph % (Auto) 7.2 L (25-47) % [place] % (Auto) 3.5 (0-7) % Eos % (Auto) 0 (0-6) % Baso % (Auto) 0.1 (0-2) % Absolute Neuts (auto) 15.4 H (1.5-7.7) 10^3/ul Absolute Lymphs (auto) 1.2 (1.0-4.8) 10^3/ul Absolute Monos (auto) 0.6 (0-0.8) 10^3/ul Absolute Eos (auto) 0 (0-0.6) 10^3/ul Absolute Basos (auto) 0 (0-0.2) 10^3/ul Absolute Nucleated RBC 0 10^3/ul Nucleated RBC % 0.1 Sodium 134 L (139-145) mmol/L Potassium 3.5 (3.5-5.0) mmol/L Chloride 93 L (101-111) mmol/L Carbon Dioxide 18 L (22-32) mmol/L Anion Gap 23 H (2-11) mmol/L BUN 8 (6-24) mg/dL Creatinine 0.98 (0.67-1.17) mg/dL Est GFR ( Amer) 105.0 (>60) Est GFR (Non-Af Amer) 81.6 (>60) BUN/Creatinine Ratio 8.2 (8-20) Glucose 367 H (70-100) mg/dL Lactic Acid 4.5 H* (0.5-2.0) mmol/L Calcium 10.3 (8.6-10.3) mg/dL Total Bilirubin 1.10 H (0.2-1.0) mg/dL AST 14 (13-39) U/L ALT 17 (7-52) U/L Alkaline Phosphatase 84 (34-104) U/L Troponin I 0.01 (<0.04) ng/mL C-Reactive Protein 5.42 H (< 5.00) mg/L Total Protein 8.7 (6.4-8.9) g/dL Albumin 5.2 (3.2-5.2) g/dL Globulin 3.5 (2-4) g/dL Albumin/Globulin Ratio 1.5 (1-3) Lipase < 10 L (11.0-82.0) U/L Microbiology and Other Data: Microbiology 01/29/18 09:48 Stool Occult Blood (ALF) - Final Stool Diagnostic Imaging: TTE was done earlier today, await report. EKG Data: Reviewed with Dr. Moralez. No acute changes. Assess/Plan/Problems-Billing Assessment: A 47 y/o male with significant PMH for CAD, gastroparesis, cyclic vomiting and DM type 2 with associated neuropathy, who presented to ED with 2 days hx persistent nausea, vomiting, dehydaration and metabolic acidosis, with questionable ST changes on EKG although appears to be chronic. - Patient Problems (1) Nausea & vomiting Current Visit: Yes Status: Acute Comment: - Suspect diabetic gastroparesis. - Continue Omeprazole, Reglan. - Coffee ground emesis on admission, last EGD in 09/2014. Spoke with Dr. Robin , GI consult appreciated. - Given intermittent N/V with no significant improvement since admission, plans were made for an EGD tomorrow. - NPO after midnight, chesk labs in AM (2) Chest pain Current Visit: Yes Status: Acute Comment: - Likely secondary to emetogenic esophagitis. Appears pluritic and reproducible in nature. - Serial troponins were negative. - Continue PPI, sucralfate, and anti-emetics. - Repeat TTE (3) Upper GI bleed Current Visit: Yes Status: Acute Comment: - Hemodynamically stable, no evidence of active GI bleed - Likely secondary to violent vomiting, patient also admit inducing vomiting on occasionas by inserting finger in posterior pharynx. - EGD in AM 01/30/18 (4) CAD (coronary artery disease) Current Visit: No Status: Chronic Comment: - S/P s/p CABG and stenting. - Stable. - Continue aspirin, atorvastatin, metoprolol XL and ranexa. - Patient do not use Nitro patch at home, will d/c since he has SL tabs on prn basis. (5) Diabetes Current Visit: No Status: Chronic Comment: - Continue Lispro coverage per sliding scale - Uncontrolled (6) Dyslipidemia Current Visit: No Status: Chronic Comment: - Continue Atrovastatin (7) Gastroparesis Current Visit: No Status: Chronic Comment: - Continue home metoclopramide. (8) Hx of CABG Current Visit: No Comment: - Recent cardiac cath with stenting 10/2017 (9) Hypertension Current Visit: No Status: Chronic Comment: - Continue metoprolol, ramipril. (10) DVT prophylaxis Current Visit: No Status: Acute Comment: - SQ heparin. (11) Full code status Current Visit: No Status: Acute (12) Sepsis Current Visit: Yes Status: Acute Comment: - Although patient meets criteria for sepsis with leukocytosis, lactic acidosis and tachycardia. It's likely due to vomiting in lack of other definite source of infection. Will continue Zosyn and await urine culture. Status and Disposition: Inpatient. Anticipate discharge when medically stable.
[2018-01-29] MEDS: Ondansetron INJ* 2 MG/ML SYRINGE (from 40/20 VIAL) IV PRN (13:30)
--- NOTE | 2018-01-29 13:41 | ECHO ---
Patient: GWYN MIRELES [facility] Rec#: [id number] : 1970 Date: 01/29/2018 Age: 47y Height: 175.26 cm / 69.0 in Weight: 86.18 kg / 189.9 lbs Sex: M BSA: 2.02 Room#: 404 Admit Date#: 01/28/2018 Type: Inpatient Referring: Randall Muller Reading: John Jane MD Outside Sales Account Manager: Jossie Kaiser RDCS CC: Tito Saunders MD Transthoracic Echocardiogram Indication: Chest pain BP: 117/68 HR: 74 Rhythm: NSR Findings History: DM, CAD s/p CABG and PCI, sever neuropathy, HLD, HTN, daily marijuana use, murmur. Technical Comments: The study quality is poor. Completed at 1300. Left Ventricle: The left ventricular chamber size is normal. Mild concentric left ventricular hypertrophy is observed. There is global hypokinesis of the left ventricle with minor regional variation. There is moderately decreased left ventricular systolic function. The estimated ejection fraction is 40-45%. septal/anterior septal and inferior wall hypokinesis. Post surgical hypokinesis of the interventricular septum is observed consistent with coronary artery bypass. There is no consistent Doppler evidence of clinically significant diastolic dysfunction. Left Atrium: The left atrium is mild to moderately dilated. Right Ventricle: The right ventricle is not well visualized. Moderator Band present. The right ventricle is mildly dilated. The right ventricular global systolic function is mildly reduced. Right Atrium: The right atrium is mild to moderately dilated. Aortic Valve: The aortic valve is trileaflet. Mild aortic leaflet calcification is visualized. Systolic excursion of the aortic valve cusps is reduced. There is a trace of aortic regurgitation. There is mild aortic stenosis. Mitral Valve: The mitral valve leaflets are mildly thickened. There is a trace of mitral regurgitation. There is no evidence of mitral stenosis. Tricuspid Valve: The tricuspid valve leaflets are normal. There is a physiologic tricuspid regurgitation. Unable to estimate the right ventricular systolic pressure. There is no tricuspid stenosis. Pulmonic Valve: The pulmonic valve appears normal. There is a trace pulmonic regurgitation. There is no pulmonic stenosis. Pericardium: There is no significant pericardial effusion. A pericardial fat pad is visualized. Aorta: There is no dilatation of the ascending aorta. There is no dilatation of the aortic arch. The aortic root is normal in size. Pulmonary Artery: The main pulmonary artery appears normal. Venous: The inferior vena cava appears normal in size. There is a greater than 50% respiratory change in the inferior vena cava dimension. Summary: There are no significant changes when compared to the previous study done on 10/21/2017, no overt sig changes Conclusions Mild concentric left ventricular hypertrophy is observed. The estimated ejection fraction is 40-45%. septal/anterior septal and inferior wall hypokinesis. Post surgical hypokinesis of the interventricular septum is observed consistent with coronary artery bypass. There is no consistent Doppler evidence of clinically significant diastolic dysfunction. The left atrium is mild to moderately dilated. There is a trace of aortic regurgitation. There is mild aortic stenosis. There is a trace of mitral regurgitation. There is a physiologic tricuspid regurgitation. Measurements Name Value Normal Range RVIDd (AP) 2D 3.1 cm (0.9 - 2.6) RVDdMajor (2D) 4.6 cm (2.2 - 4.4) RAd ISD 4CH 5.5 cm (3.4 - 4.9) RA (A4C)W 3.5 cm (2.9 - 4.6) IVSd (2D) 1.2 cm (0.6 - 1) LVPWd (2D) 1.3 cm (0.6 - 1) LVIDd (2D) 4.4 cm (3.6 - 5.4) LVIDs (2D) 3.4 cm - LV FS (2D) 21 % (25 - 45) Aortic Annulus 1.9 cm (1.4 - 2.6) Ao root diameter (2D) 3.2 cm (2.1 - 3.5) Ascending Ao 3.3 cm (2.1 - 3.4) Aortic arch 2.2 cm (1.8 - 3.4) LA dimension (AP) 2D 2.9 cm (2.3 - 3.8) LAd ISD 4CH 5.8 cm (2.9 - 5.3) LA ISD 4CH W 5 cm (2.5 - 4.5) Name Value Normal Range LA ESV SP 4CH (A/L) 95 ml - LA ESV SP 2CH (A/L) 69 ml - LA ESV BP (A/L) 82 ml - LA ESV BP (A/L) index 41 ml/m2 - LA ESV SP 4CH (MOD) 91 ml - LA ESV SP 2CH (MOD) 65 ml - Name Value Normal Range MV E-wave Vmax 1.1 m/sec - MV deceleration time 213 msec - MV A-wave Vmax 0.84 m/sec - MV E:A ratio 1.33 ratio - LV septal e' Vmax 0.05 m/sec - LV lateral e' Vmax 0.11 m/sec - LV E:e' septal ratio 22 ratio - LV E:e' lateral ratio 10 ratio - Name Value Normal Range AV Vmax 2.2 m/sec - AV VTI 49.88 cm - AV peak gradient 19.18 mmHg - AV mean gradient 10.26 mmHg - LVOT diameter 2.1 cm - LVOT Vmax 0.87 m/sec - LVOT VTI 20.1 cm - LVOT peak gradient 3.04 mmHg - LVOT mean gradient 2 mmHg - DOI (VTI) 0.4 ratio - DHARA (continuity Vmax) 1.4 cm2 - DHARA (continuity VTI) 1.4 cm2 - AINSLEY Vmax 1.17 m/sec - Name Value Normal Range IVC diameter 1.52 cm - Name Value Normal Range PV Vmax 1.39 m/sec - PV peak gradient 7.78 mmHg -
[2018-01-29] MEDS: Metoprolol Succinate XL TAB* 50 MG PO SCH (17:10)
[2018-01-29] MEDS: Terazosin CAP* 1 MG PO SCH (19:33)
[2018-01-29] MEDS: Atorvastatin* 80 MG TAB PO SCH (19:33)
[2018-01-30] MEDS: Piperacillin/Tazobac ADVAN(*) 3.375 GM in NS 0.9% 100 ML* 100 ML IVPB SCH ×2 (01:19→08:27)
[2018-01-30] MEDS: Metoclopramide IV* 5 MG/ML 2 ML VIAL IV SLOW PU SCH ×4 (01:23→20:56)
[2018-01-30 06:27] LABS: ABS Basophils 0 10^3/ul (0-0.2); ABS Eosinophils 0.1 10^3/ul (0-0.6); ABS Lymphocytes 2.2 10^3/ul (1.0-4.8); ABS Monocytes 0.9 10^3/ul (0-0.8); ABS Neutrophils 5.9 10^3/ul (1.5-7.7); ABS Nucleated RBC 0 10^3/ul; Eosinophil % 0.8 % (0-6); Hematocrit 36 % (42-52); Mean Corpuscular HGB Conc 36 g/dl (31-36); Mean Corpuscular Hemoglobin 30 pg (27-31); Mean Corpuscular Volume 84 fL (80-94); Mean Platelet Volume 8.3 um3 (7.4-10.4); Nucleated Red Blood Cells % 0; Platelet Count 176 10^3/ul (150-450); Red Blood Count 4.29 10^6/ul (4.0-5.4); Red Cell Distribution Width 14 % (10.5-15); White Blood Count 9.1 10^3/ul (3.5-10.8)
[2018-01-30 06:44] LABS: INR 1.08 (0.77-1.02)
[2018-01-30 06:45] LABS: EGFR Non-African American 94.9 (>60)
[2018-01-30] MEDS: fentaNYL Patch Check Q Shift 1 NOTE SCH ×2 (07:08→18:37)
[2018-01-30] MEDS: Sucralfate TAB* 1 GM PO SCH ×2 (09:15→22:09)
[2018-01-30] MEDS: Insulin LISPRO* 1 UNITS UNIT SUBCUT SCH ×4 (09:15→20:47)
[2018-01-30] MEDS: Metoprolol Succinate XL TAB* 25 MG PO SCH (09:17)
[2018-01-30] MEDS: CMCS Ranolazine (NF) 500 MG TAB PO SCH ×2 (09:17→22:10)
[2018-01-30] MEDS: Ticagrelor* 90 MG TAB PO SCH ×2 (09:17→22:10)
[2018-01-30] MEDS: Aspirin EC TAB* 81 MG TAB.EC PO SCH (09:18)
[2018-01-30] MEDS: Ezetimibe TAB* 10 MG PO SCH (09:18)
[2018-01-30] MEDS: HYDROmorphone INJ* 2 MG/ML CARPUJECT SYRINGE IV SLOW PU PRN (09:52)
[2018-01-30] MEDS: Ondansetron INJ* 2 MG/ML SYRINGE (from 40/20 VIAL) IV PRN (09:52)
--- NOTE | 2018-01-30 12:16 | PN ---
Subjective Date of Service: 01/30/18 Interval History: Patient reports continued N&V - improving a little today but not by much. States the compazine works well for him but hasn't received a dose since last night. Some dark "flakes" of substances in emesis today but otherwise clear. Denies CP. Reports abdominal "muscle tenderness from vomiting". No fevers or chills. Family History: Unchanged from Admission Social History: Unchanged from Admission Past Medical History: Unchanged from Admission Objective Active Medications: Acetaminophen (Tylenol Tab*) 650 mg PO Q6H PRN PRN Reason: FEVER/PAIN Last Admin: 01/28/18 13:08 Dose: 650 mg Aspirin (Aspirin Ec Tab*) 81 mg PO QAM [facility] Last Admin: 01/30/18 09:18 Dose: 81 mg Atorvastatin Calcium (Lipitor*) 80 mg PO BEDTIME [facility] Last Admin: 01/29/18 19:33 Dose: 80 mg Dextrose (D50w Syringe 50 Ml*) 12.5 gm IV PUSH .FOR FS < 60 - SS PRN PRN Reason: FS < 60 Ezetimibe (Zetia Tab*) 10 mg PO QAM [facility] Last Admin: 01/30/18 09:18 Dose: 10 mg Fentanyl (Duragesic Patch 50 Mcg/Hr*) 50 mcg TRANSDERM Q72H [facility] Last Admin: 01/28/18 01:29 Dose: 50 mcg Hydromorphone HCl (Dilaudid Inj*) 1 mg IV SLOW PU Q4H PRN PRN Reason: PAIN Last Admin: 01/30/18 09:52 Dose: 1 mg Sodium Chloride (Ns 0.9% 1000 Ml*) 1,000 mls @ 100 mls/hr IV PER RATE [facility] Last Admin: 01/29/18 22:37 Dose: 100 mls/hr Piperacillin Sod/Tazobactam (Sod 3.375 gm/ Sodium Chloride) 100 mls @ 25 mls/ hr IVPB Q8H [facility] Last Admin: 01/30/18 08:27 Dose: 25 mls/hr Potassium Chloride (Potassium Chloride 20 Meq/100 Ml Ivpremix*) 20 meq in 100 mls @ 50 mls/hr IV Q2H [facility] Stop: 01/30/18 18:59 Insulin Human Lispro (Humalog*) 0 units SUBCUT ACHS [facility] PRN Reason: Protocol Last Admin: 01/30/18 12:08 Dose: Not Given Metoclopramide HCl (Reglan Iv*) 10 mg IV SLOW PU 0200,0800,1400,2000 [facility] Last Admin: 01/30/18 08:27 Dose: 10 mg Metoprolol Succinate (Toprol Xl Tab*) 25 mg PO QAM [facility] Last Admin: 01/30/18 09:17 Dose: 25 mg Metoprolol Succinate (Toprol Xl Tab*) 50 mg PO QPM [facility] Last Admin: 01/29/18 17:10 Dose: 50 mg Metoprolol Tartrate (Lopressor Iv*) 5 mg IV Q6H PRN PRN Reason: SYSTOLIC BP GREATER THAN: Nitroglycerin (Nitroglycerin Tab 0.4 Mg*) 0.4 mg SL Q5M PRN PRN Reason: PAIN - CHEST Omeprazole (Prilosec Cap*) 20 mg PO 2100 [facility] Last Admin: 01/29/18 19:34 Dose: 20 mg Ondansetron HCl (Zofran Inj*) 4 mg IV Q6H PRN PRN Reason: NAUSEA Last Admin: 01/30/18 09:52 Dose: 4 mg Oxycodone HCl (Roxycodone Tab*) 5 mg PO Q4H PRN PRN Reason: PAIN Last Admin: 01/28/18 05:18 Dose: 5 mg Pharmacy Consult (Zosyn Per Pharmacy*) 1 note FOLLOW UP .ZOSYN PER PHARMACY [facility] Pharmacy Profile Note (Fentanyl Patch Check Q Shift) 1 note N/A 0700,1900 [facility] Last Admin: 01/30/18 07:08 Dose: 1 note Prochlorperazine Edisylate (Compazine Inj*) 10 mg IV Q6H PRN PRN Reason: NAUSEA/VOMITING Last Admin: 01/29/18 21:00 Dose: 10 mg Ranolazine (Ranexa (Nf)) 1,000 mg PO BID [facility] PRN Reason: Protocol Last Admin: 01/30/18 09:17 Dose: 1,000 mg Sucralfate (Carafate*) 1 gm PO 1100,2300 [facility] Last Admin: 01/30/18 09:15 Dose: Not Given Terazosin HCl (Hytrin Cap*) 2 mg PO BEDTIME [facility] Last Admin: 01/29/18 19:33 Dose: 2 mg Ticagrelor (Brilinta*) 90 mg PO BID [facility] Last Admin: 01/30/18 09:17 Dose: 90 mg Vital Signs - 8 hr 01/30/18 01/30/18 01/30/18 07:32 08:00 09:52 Temperature 98.2 F Pulse Rate 67 Respiratory 18 16 16 Rate Blood Pressure 151/82 (mmHg) O2 Sat by Pulse 99 Oximetry 01/30/18 12:08 Temperature Pulse Rate Respiratory 16 Rate Blood Pressure (mmHg) O2 Sat by Pulse Oximetry Oxygen Devices in Use Now: None Appearance: 47 yo male A+O x3 sitting up on the side of the bed in NAD Eyes: No Scleral Icterus, PERRLA Ears/Nose/Mouth/Throat: NL Teeth, Lips, Gums, Mucous Membranes Moist Respiratory: Symmetrical Chest Expansion and Respiratory Effort, Clear to Auscultation Cardiovascular: NL Sounds; No Murmurs; No JVD, RRR, No Edema Abdominal: - - soft, NL BS - diffuse tenderness (muscle/superifical) Extremities: No Edema, No Clubbing, Cyanosis Skin: No Rash or Ulcers, No Nodules or Sclerosis Neurological: Alert and Oriented x 3, NL Sensation, NL Muscle Strength and Tone Lines/Tubes/Other Access: Clean, Dry and Intact Peripheral IV Nutrition: Taking PO's Result Diagrams: 01/30/18 05:51 01/30/18 05:51 Additional Lab and Data: Lab Results 01/27/18 01/27/18 01/27/18 Range/Units 19:26 19:26 19:26 WBC 17.2 H (3.5-10.8) 10^3/ul RBC 5.61 H (4.0-5.4) 10^6/ul Hgb 16.3 (14.0-18.0) g/dl Hct 47 (42-52) % MCV 85 (80-94) fL MCH 29 (27-31) pg MCHC 34 (31-36) g/dl RDW 14 (10.5-15) % Plt Count 282 (150-450) 10^3/ul MPV 8.5 (7.4-10.4) um3 Neut % (Auto) 89.2 H (38-83) % Lymph % (Auto) 7.2 L (25-47) % [place] % (Auto) 3.5 (0-7) % Eos % (Auto) 0 (0-6) % Baso % (Auto) 0.1 (0-2) % Absolute Neuts (auto) 15.4 H (1.5-7.7) 10^3/ul Absolute Lymphs (auto) 1.2 (1.0-4.8) 10^3/ul Absolute Monos (auto) 0.6 (0-0.8) 10^3/ul Absolute Eos (auto) 0 (0-0.6) 10^3/ul Absolute Basos (auto) 0 (0-0.2) 10^3/ul Absolute Nucleated RBC 0 10^3/ul Nucleated RBC % 0.1 Sodium 134 L (139-145) mmol/L Potassium 3.5 (3.5-5.0) mmol/L Chloride 93 L (101-111) mmol/L Carbon Dioxide 18 L (22-32) mmol/L Anion Gap 23 H (2-11) mmol/L BUN 8 (6-24) mg/dL Creatinine 0.98 (0.67-1.17) mg/dL Est GFR ( Amer) 105.0 (>60) Est GFR (Non-Af Amer) 81.6 (>60) BUN/Creatinine Ratio 8.2 (8-20) Glucose 367 H (70-100) mg/dL Lactic Acid 4.5 H* (0.5-2.0) mmol/L Calcium 10.3 (8.6-10.3) mg/dL Total Bilirubin 1.10 H (0.2-1.0) mg/dL AST 14 (13-39) U/L ALT 17 (7-52) U/L Alkaline Phosphatase 84 (34-104) U/L Troponin I 0.01 (<0.04) ng/mL C-Reactive Protein 5.42 H (< 5.00) mg/L Total Protein 8.7 (6.4-8.9) g/dL Albumin 5.2 (3.2-5.2) g/dL Globulin 3.5 (2-4) g/dL Albumin/Globulin Ratio 1.5 (1-3) Lipase < 10 L (11.0-82.0) U/L Microbiology and Other Data: Microbiology 01/29/18 09:48 Stool Occult Blood (ALF) - Final Stool Diagnostic Imaging: TTE was done earlier today, await report. EKG Data: Reviewed with Dr. Moralez. No acute changes. Assess/Plan/Problems-Billing Assessment: A 47 y/o male with significant PMH for CAD, gastroparesis, cyclic vomiting and DM type 2 with associated neuropathy, who presented to ED with 2 days hx persistent nausea, vomiting, dehydaration and metabolic acidosis, with questionable ST changes on EKG although appears to be chronic. - Patient Problems (1) Sepsis Comment: - Although patient meets criteria for sepsis with leukocytosis, lactic acidosis and tachycardia. It's likely due to vomiting in lack of other definite source of infection. U/A looks negative, plan to DC abx. Blood cx NTD (2) Upper GI bleed Comment: - Hemodynamically stable, no evidence of active GI bleed - Coffee ground emesis on admission. - HH dropped Hgb 16 down to 13 - is stable. Continue to follow. - Positive Gastric and Stool for occult blood. - GI consult appreciated - plan for EGD today to evaluted for PUD in the setting of Brilinta and evaluate for hiatal hernia noted on CT. GIB could be secondary to cyclic vomiting. last EGD in 09/2014. - NPO - EGD today (3) Nausea & vomiting Comment: - May be secondary to diabetic gastroparesis d/t poorly controlled DM with superimporsed cyclic vomiting. Possible cannabis driven cyclic vomiting syndrome. - Patient also admit inducing vomiting on occasions by inserting finger in posterior pharynx. - CT abdomen - no acute pathology -Continue Omeprazole, Reglan, zofran, carafate - continue IVFs (4) Chest pain Comment: - Likely secondary to emetogenic esophagitis. Appears pluritic and reproducible in nature. - Serial troponins were negative. - Continue PPI, sucralfate, and anti-emetics. - TTE showing EF 40-45%, appears similiar to prior (5) Hypokalemia Comment: - Replete. (6) CAD (coronary artery disease) Comment: - S/P s/p CABG and stenting. - Stable. - Continue aspirin, atorvastatin, metoprolol XL and ranexa. - Patient do not use Nitro patch at home, will d/c since he has SL tabs on prn basis. (7) Diabetes Comment: - Continue Lispro coverage per sliding scale - Uncontrolled (8) Gastroparesis Comment: - Continue home metoclopramide. (9) Hx of CABG Comment: - Recent cardiac cath with stenting 10/2017 (10) DVT prophylaxis Comment: SCDs in the setting of UGIB (11) Chronic pain Comment: follows with the pain clinic continue Fentanyl patch and oxycodone prn (12) Full code status Status and Disposition: Inpatient. Anticipate discharge when medically stable.
[2018-01-30] MEDS ORDERED: KCL 20 MEQ/100 ML IVPREMIX* 20 MEQ/100 ML BAG IV SCH (13:00)
[2018-01-30] MEDS ORDERED: Potassium Chloride IV* 60 MEQ in NS 0.9% 500 ML* 500 ML IVPB ONE (13:00)
[2018-01-30] MEDS: NS 0.9% 1000 ML* 1,000 ML IV SCH ×2 (13:12→23:41)
[2018-01-30] MEDS: PROCHLORPERAZINE INJ 5 MG/ML 2 ML VIAL IV PRN ×2 (13:13→20:47)
[2018-01-30] MEDS ORDERED: Midazolam* 1 MG/ML 10 ML VIAL (10 MG) ONE (15:15)
[2018-01-30] MEDS ORDERED: fentaNYL* 50 MCG/ML 2 ML VIAL (100 MCG VIAL) ONE (15:15)
--- NOTE | 2018-01-30 16:52 | PRO ---
CC: Dr. Saunders * DATE OF PROCEDURE: 01/30/2018. PROCEDURE PERFORMED: EGD. INDICATION: Cyclical vomiting syndrome, gastroparesis. REFERRING PHYSICIAN: Dr. Saunders. MEDICATIONS GIVEN: 50 mcg IV Fentanyl and 6 mg IV Versed. PROCEDURE: After the EGD procedure, including the risks, benefits, and alternatives, not limited to perforation, surgery and/or were explained to Mr. Kaye, written consent was then obtained. IV medication was given and a bite-block was placed between the teeth. An Olympus gastroscope was then inserted into the patient's mouth, advanced down the esophagus, into the stomach and into the distal duodenum. In the esophagus at the GE junction, the Z-line was intact. He does have erosive esophagitis in the distal half of the esophagus, likely secondary to his four days worth of vomiting. The scope was advanced through a very small hiatal hernia and into the body of the stomach. Retroflex and forward views were unremarkable. The scope was advanced through a widely patent pylorus, into the duodenal bulb, and into the distal duodenum. Biopsies were obtained for celiac disease. The scope was then withdrawn from the patient. He tolerated the procedure well and was returned to the recovery room in stable condition. IMPRESSION: 1. Complete upper endoscopy into the distal duodenum with biopsies. 2. Very mild gastritis. 3. Very mild erosive esophagitis. 4. Biopsies for celiac. 5. I would like him to double up on his PPI and continue to use Carafate. [id number]/[facility] #: [id number] MTDD
[2018-01-30] MEDS: Metoprolol Succinate XL TAB* 50 MG PO SCH (17:59)
[2018-01-30] MEDS: Terazosin CAP* 1 MG PO SCH (22:01)
[2018-01-30] MEDS: fentaNYL PATCH 50 MCG/HR TRANSDERM SCH (22:03)
[2018-01-30] MEDS: Atorvastatin* 80 MG TAB PO SCH (22:10)
[2018-01-30] MEDS: Omeprazole CAP* 20 MG PO SCH (22:10)
[2018-01-30] MEDS ORDERED: CMCS: Melatonin (NF) 3 MG TAB PO PRN (23:29)
[2018-01-31] MEDS: Metoclopramide IV* 5 MG/ML 2 ML VIAL IV SLOW PU SCH ×2 (04:02→08:17)
[2018-01-31 06:44] LABS: ABS Basophils 0 10^3/ul (0-0.2); ABS Eosinophils 0.1 10^3/ul (0-0.6); ABS Lymphocytes 1.9 10^3/ul (1.0-4.8); ABS Monocytes 0.8 10^3/ul (0-0.8); ABS Neutrophils 6.8 10^3/ul (1.5-7.7); ABS Nucleated RBC 0 10^3/ul; Eosinophil % 0.9 % (0-6); Hematocrit 37 % (42-52); Hemoglobin 13.1 g/dl (14.0-18.0); Lymphocyte % 19.8 % (25-47); Mean Corpuscular HGB Conc 35 g/dl (31-36); Mean Corpuscular Hemoglobin 30 pg (27-31); Mean Corpuscular Volume 85 fL (80-94); Mean Platelet Volume 8.1 um3 (7.4-10.4); Nucleated Red Blood Cells % 0; Platelet Count 202 10^3/ul (150-450); Red Blood Count 4.36 10^6/ul (4.0-5.4); Red Cell Distribution Width 13 % (10.5-15); White Blood Count 9.7 10^3/ul (3.5-10.8)
[2018-01-31 07:00] LABS: EGFR Non-African American 84.6 (>60)
[2018-01-31] MEDS: fentaNYL Patch Check Q Shift 1 NOTE SCH (07:07)
[2018-01-31 07:25] VITALS: BP 167/83
[2018-01-31] MEDS: Aspirin EC TAB* 81 MG TAB.EC PO SCH (08:16)
[2018-01-31] MEDS: Insulin LISPRO* 1 UNITS UNIT SUBCUT SCH (08:17)
[2018-01-31] MEDS: Ezetimibe TAB* 10 MG PO SCH (08:17)
[2018-01-31] MEDS: CMCS Ranolazine (NF) 500 MG TAB PO SCH (08:17)
[2018-01-31] MEDS: Omeprazole CAP* 20 MG PO SCH (08:17)
[2018-01-31] MEDS: Ticagrelor* 90 MG TAB PO SCH (08:17)
[2018-01-31] MEDS: Metoprolol Succinate XL TAB* 25 MG PO SCH (08:17)
[2018-01-31] MEDS: oxyCODONE TAB* 5 MG TAB PO PRN (08:25)
--- NOTE | 2018-01-31 08:25 | PN ---
Subjective Date of Service: 01/31/18 Interval History: Mr. Kaye reports that he is feeling much better today and is eager for discharge to home. He denies nausea or vomiting. He denies chest pain. Family History: Unchanged from Admission Social History: Unchanged from Admission Past Medical History: Unchanged from Admission Objective Active Medications: Acetaminophen (Tylenol Tab*) 650 mg PO Q6H PRN Aspirin (Aspirin Ec Tab*) 81 mg PO QAM EVELIN Atorvastatin Calcium (Lipitor*) 80 mg PO BEDTIME EVELIN Dextrose (D50w Syringe 50 Ml*) 12.5 gm IV PUSH .FOR FS < 60 - SS PRN Ezetimibe (Zetia Tab*) 10 mg PO QAM EVELIN Fentanyl (Duragesic Patch 50 Mcg/Hr*) 50 mcg TRANSDERM Q72H EVELIN Hydromorphone HCl (Dilaudid Inj*) 1 mg IV SLOW PU Q4H PRN Sodium Chloride (Ns 0.9% 1000 Ml*) 1,000 mls @ 100 mls/hr IV PER [facility] Insulin Human Lispro (Humalog*) 0 units SUBCUT ACHS VEELIN Melatonin (Melatonin (Nf)) 3 mg PO BEDTIME PRN; Protocol Metoclopramide HCl (Reglan Iv*) 10 mg IV SLOW PU 0200,0800,1400,2000 EVELIN Metoprolol Succinate (Toprol Xl Tab*) 25 mg PO QAM EVELIN Metoprolol Succinate (Toprol Xl Tab*) 50 mg PO QPM EVELIN Metoprolol Tartrate (Lopressor Iv*) 5 mg IV Q6H PRN Nitroglycerin (Nitroglycerin Tab 0.4 Mg*) 0.4 mg SL Q5M PRN Omeprazole (Prilosec Cap*) 20 mg PO BID AC EVELIN Ondansetron HCl (Zofran Inj*) 4 mg IV Q6H PRN Oxycodone HCl (Roxycodone Tab*) 5 mg PO Q4H PRN Pharmacy Profile Note (Fentanyl Patch Check Q Shift) 1 note N/A 0700,1900 EVELIN Prochlorperazine Edisylate (Compazine Inj*) 10 mg IV Q6H PRN Ranolazine (Ranexa (Nf)) 1,000 mg PO BID EVELIN Sucralfate (Carafate*) 1 gm PO 1100,2300 EVELIN Terazosin HCl (Hytrin Cap*) 2 mg PO BEDTIME EVELIN Ticagrelor (Brilinta*) 90 mg PO BID EVELIN Vital Signs: Temp Pulse Resp BP Pulse Ox 98.2 F 69 18 167/83 100 01/31/18 07:20 01/31/18 07:20 01/31/18 07:20 01/31/18 07:20 01/31/18 07:20 Oxygen Devices in Use Now: None Appearance: Male sitting up on edge of bed in NAD Eyes: No Scleral Icterus Ears/Nose/Mouth/Throat: Mucous Membranes Moist Neck: Trachea Midline Respiratory: Symmetrical Chest Expansion and Respiratory Effort, Clear to Auscultation Cardiovascular: No Edema, - - RRR, systolic murmur at sternal border Abdominal: NL Sounds; No Tenderness; No Distention Lymphatic: No Cervical Adenopathy Extremities: No Edema Skin: No Rash or Ulcers Neurological: Alert and Oriented x 3, NL Muscle Strength and Tone Result Diagrams: 01/31/18 06:04 01/31/18 06:04 Assess/Plan/Problems-Billing Assessment: A 47 y/o male with significant PMH for CAD, gastroparesis, cyclic vomiting and DM type 2 with associated neuropathy, who presented to ED with 2 days hx persistent nausea, vomiting, dehydaration and metabolic acidosis, with questionable ST changes on EKG although appears to be chronic. - Patient Problems (1) Nausea & vomiting Comment: - Resolved. - EGD without any significant abnormality. Appreciate GI consult. - Likely secondary to diabetic gastroparesis d/t poorly controlled DM with superimposed cyclic vomiting. Possible cannabis driven cyclic vomiting syndrome. - Patient also admit inducing vomiting on occasions by inserting finger in posterior pharynx. - CT abdomen - no acute pathology - Continue omeprazole, reglan, zofran, carafate, and compazine. (2) Upper GI bleed Comment: - Resolved. - GI consult appreciated - no significant abnormality noted on EGD. GIB likely secondary to cyclic vomiting. - HH dropped Hgb 16 down to 13 - is stable. - Positive Gastric and Stool for occult blood. (3) Gastroparesis Comment: - Continue home metoclopramide. (4) Chest pain Comment: - Likely secondary to emetogenic esophagitis. Appears pluritic and reproducible in nature. - Serial troponins were negative. - Continue PPI, sucralfate, and anti-emetics. - TTE showing EF 40-45%, appears similiar to prior (5) Chronic pain Comment: - Follows with the pain clinic. - Continue Fentanyl patch and oxycodone prn. (6) CAD (coronary artery disease) Comment: - S/P CABG and stenting 10/2017. - Continue aspirin, atorvastatin, metoprolol XL, brilinta and ranexa. - Patient do not use Nitro patch at home, will d/c since he has SL tabs on prn basis. (7) Diabetes mellitus type 2, controlled, with complications Comment: - BGs 200s. - Patient to resume metformin at discharge. - Has follow up appt at [facility] on 02/07 for adjustment of medications as Hgb A1c 9.3. (8) Hypertension Comment: - BP controlled. - Continue metoprolol, ramipril. (9) Dyslipidemia Comment: - Continue atorvastatin and zetia. (10) Sepsis Comment: - Ruled out. (11) DVT prophylaxis Comment: - SCDs in the setting of UGIB (12) Full code status Comment: Status and Disposition: Discharge to home.
--- NOTE | 2018-02-01 02:59 | DS ---
CC: Dr. Tito Saunders* [facility] MEDICINE DISCHARGE SUMMARY: DATE OF ADMISSION: 01/27/18 DATE OF DISCHARGE: 01/31/18 ATTENDING PHYSICIAN: Dr. Santi Mulligan* (dictation provided by Afua Gomez NP) PRIMARY CARE PROVIDER: Dr. Tito Saunders. PRIMARY DIAGNOSES: 1. Cyclical vomiting likely secondary to diabetic gastroparesis and perhaps related to marijuana use. 2. Suspected upper gastrointestinal bleed secondary to cyclical vomiting. SECONDARY DIAGNOSES: 1. Uncontrolled type 2 diabetes. Hemoglobin A1c was 9.3. 2. Neuropathy. 3. Hyperlipidemia. 4. Coronary artery disease, status post coronary artery bypass surgery and stent in October 2017. 5. Hypertension. 6. Chronic pain. 7. Depression. 8. Gastroesophageal reflux disease. 9. Insomnia. PAST SURGICAL HISTORY: CABG in 2017 and 2009 and cholecystectomy, 2017. MEDICATIONS AT THE TIME OF DISCHARGE: 1. Fentanyl patch 50 mcg transdermally q.72 hours. 2. Nitroglycerin tabs 0.4 mg sublingually q.5 minutes p.r.n. 3. Metformin ER 1000 mg p.o. daily. 4. Zetia 10 mg p.o. q.a.m. 5. Atorvastatin 80 mg p.o. at bedtime. 6. Ticagrelor 90 mg p.o. b.i.d. 7. Omeprazole 20 mg p.o. b.i.d. 8. Aspirin 81 mg p.o. q.a.m. 9. Sucralfate 1 g p.o. b.i.d. 10. Ranexa 1000 mg p.o. b.i.d. 11. Ondansetron 8 mg p.o. b.i.d., p.r.n. 12. Metoprolol succinate 25 mg in the a.m. and 50 mg in the p.m. 13. Metoclopramide tab 10 mg p.o. a.c. scheduled. 14. Terazosin 2 mg p.o. at bedtime. 15. Compazine 10 mg p.o. q.6 hours p.r.n. HOSPITAL COURSE: Mr. Kaye is a 47-year-old male with a past medical history of uncontrolled diabetes, cyclical vomiting, diabetic gastroparesis, coronary artery disease with CABG and PCI in October 2017, who presented to the hospital on 01/27/18 with concern for vomiting and chest pain. Please see the dictated H and P from TOM Olson for complete details. In brief, the patient states he had two days of abdominal pain and vomiting of dark material. He also had chest pain that radiated into his neck. He took his own Zofran, but this did not help. In the emergency room, the patient had a CT abdomen and pelvis which showed the following: "Again seen is a [id number] hiatal hernia. No definite focal inflammatory change within the limitations of non- contrast enhanced CT. The urinary bladder measures an approximate volume of 911 mL and additional chronic degenerative iatrogenic findings described in the body of the report." The patient's labs showed troponin of 0.01, his EKG showed a sinus rhythm with no significant ischemic change noted compared to the previous. Mr. Kaye was admitted to the hospital. He had a transthoracic echocardiogram on 01/29/18, which showed "mild concentric left ventricular hypertrophy is observed, the estimated ejection fraction is 40% to 45%, anterior septal and inferior wall hypokinesis, and no significant valvular abnormalities." He was seen in consultation by Dr. Robin from Gastroenterology on 01/28/18. I refer you to her note for complete details. She recommended an upper endoscopy the following Tuesday for further evaluation of nausea and vomiting, though she suspected this is all related to gastroparesis and poorly controlled diabetes. The patient stated that he did have dark emesis and is on Brilinta and aspirin. His hemoglobin fell from arrival of 16.3 to 13 and has remained stable. Mr. Kaye's nausea, vomiting has essentially resolved after he received intravenous fluids in the hospital. He did go on for a EGD on 01/30/18, which showed "complete upper endoscopy into the distal duodenum with biopsies, very mild gastritis, very mild erosive esophagitis." Biopsies for celiac were taken and the recommendation was for him to double up on his proton pump inhibitor and to continue sucralfate. Mr. Kaye has been doing very well today. He is tolerating the oral intake well. He does seem to get some benefit from the Compazine for his nausea and has requested a prescription for that which I have sent to his pharmacy at [facility] at [employer]. The patient will continue on his current medication regimen except for the addition of his Compazine. I will note that Mr. Kaye's hemoglobin A1c was elevated at approximately 9.3. He reports that he had recently been switched off insulin down back to metformin per the [facility] in [place]. The patient states that he has had a followup appointment on 02/07/18. I have recommended him that he strongly keep this appointment and discuss further adjustment of his medications with them at this appointment as they have been chronically monitoring and managing his diabetes, and his appointment is within the next week. Mr. Kaye is doing well. He will be discharged to home today. DISPOSITION: To home. DIET: Consistent carbohydrate, low-salt, low-fat. ACTIVITY: As tolerated. FOLLOWUP PLAN: 1. Please follow up with Dr. Stephany Wright on 02/07/18 per previously arranged appointment. 2. The patient states that he would like to obtain a new physician through [facility] and I have provided him with the phone number. In the meantime, I have asked he follow up with Dr. Saunders within the next week. TIME SPENT: Approximately 60 minutes was spent on the discharge of this patient , more than half the time was spent with the patient at the bedside reviewing the events leading up to this hospitalization, performing the physical examination, and reviewing the plan of care for discharge. AFUA GOMEZ NP [id number]/CPS #: [id number] HENRY
== END 2018-01-31 10:35 | disposition home or self-care (01) | DRG 74 ==
LOC: ED 18:26 → MED 22:16 → OBSVTOIN 01-28 15:09
PROVIDERS: ADMIT Hospitalist; ATTEND Internal Medicine
PROC: 0DB98ZX Excision of Duodenum, Via Natural or Artificial Opening Endoscopic, Diagnostic (ICD-10-PCS; principal; 2018-01-30)
DX: E11.43 Type 2 diabetes mellitus with diabetic autonomic (poly)neuropathy (principal); K92.2 Gastrointestinal hemorrhage, unspecified; K22.10 Ulcer of esophagus without bleeding; K92.0 Hematemesis; K92.1 Melena; E87.2 Acidosis; E11.65 Type 2 diabetes mellitus with hyperglycemia; K31.84 Gastroparesis; F12.10 Cannabis abuse, uncomplicated; G43.A0 Cyclical vomiting, in migraine, not intractable; E11.40 Type 2 diabetes mellitus with diabetic neuropathy, unspecified; E78.5 Hyperlipidemia, unspecified; I25.10 Atherosclerotic heart disease of native coronary artery without angina pectoris; I11.9 Hypertensive heart disease without heart failure; G89.29 Other chronic pain; F32.9 Major depressive disorder, single episode, unspecified; K21.9 Gastro-esophageal reflux disease without esophagitis; G47.00 Insomnia, unspecified; K44.9 Diaphragmatic hernia without obstruction or gangrene; R33.9 Retention of urine, unspecified; K29.70 Gastritis, unspecified, without bleeding; R07.9 Chest pain, unspecified; E86.0 Dehydration; J30.81 Allergic rhinitis due to animal (cat) (dog) hair and dander; Z79.84 Long term (current) use of oral hypoglycemic drugs; Z79.82 Long term (current) use of aspirin; Z79.899 Other long term (current) drug therapy; Z88.1 Allergy status to other antibiotic agents; Z82.49 Family history of ischemic heart disease and other diseases of the circulatory system; Z95.5 Presence of coronary angioplasty implant and graft; Z95.1 Presence of aortocoronary bypass graft; Z87.891 Personal history of nicotine dependence
CPT/HCPCS: 36415; 71045; 74176; 80048; 80053; 81003; 82271; 82272; 82803; 83036; 83605; 83690; 83735; 84484; 85025; 85610; 86140; 87040; 88305; 93005; 93306; 99156; 99157; 99285; A9270-GY; J0780; J1170; J2060; J2250; J2405; J2543; J2765; J3010; J3475; J3480

== ENCOUNTER 2018-03-14 13:27 | Observation (INO) | payer MEDICARE ==
[2018-03-14] MEDS ORDERED: Morphine VIAL* 4 MG/ML VIAL (1 ml vial) IV ONE ×3 (13:36→16:52)
[2018-03-14] MEDS ORDERED: Lidocaine 2% VISCOUS* 15 ML UDC PO ONE (13:48)
[2018-03-14] MEDS ORDERED: Al Hydrox/Mg Hydrox/Simet LIQ* 30 ML UDC PO ONE (13:48)
[2018-03-14] MEDS ORDERED: Ondansetron ODT TAB* 4 MG PO ONE (13:49)
[2018-03-14] MEDS ORDERED: Morphine INJ* 10 MG/ML 1 ML CARPUJECT IV ONE (13:49)
[2018-03-14] MEDS ORDERED: PROCHLORPERAZINE INJ 5 MG/ML 2 ML VIAL IV ONE (14:09)
[2018-03-14 14:15] LABS: ABS Basophils 0 10^3/ul (0-0.2); ABS Eosinophils 0 10^3/ul (0-0.6); ABS Lymphocytes 2.3 10^3/ul (1.0-4.8); ABS Monocytes 0.6 10^3/ul (0-0.8); ABS Neutrophils 10.5 10^3/ul (1.5-7.7); ABS Nucleated RBC 0 10^3/ul; Eosinophil % 0.3 % (0-6); Hematocrit 44 % (42-52); Hemoglobin 15.9 g/dl (14.0-18.0); Mean Corpuscular HGB Conc 36 g/dl (31-36); Mean Corpuscular Hemoglobin 30 pg (27-31); Mean Corpuscular Volume 84 fL (80-94); Mean Platelet Volume 8.5 um3 (7.4-10.4); Nucleated Red Blood Cells % 0; Platelet Count 238 10^3/ul (150-450); Red Blood Count 5.26 10^6/ul (4.00-5.40); Red Cell Distribution Width 13 % (10.5-15); White Blood Count 13.4 10^3/ul (3.5-10.8)
[2018-03-14 14:26] LABS: EGFR Non-African American 81.6 (>60)
--- NOTE | 2018-03-14 15:16 | RAD ---
INDICATION: Chest pain COMPARISON: January 27, 2018 TECHNIQUE: An AP portable view obtained at 1410 hours is submitted. FINDINGS: Bones/Soft Tissues: There are no acute bony findings. There is sternotomy Cardiomediastinal: The cardiomediastinal silhouette is normal. Lungs: There are no infiltrates. Pleura: There are no pleural effusions. Other: None IMPRESSION: NO ACTIVE DISEASE.
[2018-03-14] MEDS ORDERED: NS 0.9% 1000 ML* 1,000 ML IV ONE (15:21)
[2018-03-14] MEDS ORDERED: Promethazine INJ(RESTRICTED)* 25 MG/ML 1 ML VIAL IV ONE (16:14)
[2018-03-14] MEDS ORDERED: Morphine INJ* 2 MG/ML 1 ML CARPUJECT IV ONE (16:16)
[2018-03-14] MEDS ORDERED: Magnesium Hydroxide LIQ* 30 ML UDC PO PRN (20:42)
[2018-03-14] MEDS ORDERED: Ondansetron INJ* 2 MG/ML VIAL IV PRN (20:42)
[2018-03-14] MEDS ORDERED: Acetaminophen TAB* 325 MG PO PRN (20:42)
[2018-03-14] MEDS ORDERED: Al Hydrox/Mg Hydrox/Simet LIQ* 30 ML UDC PO PRN (20:42)
[2018-03-14] MEDS ORDERED: Albuterol 2.5 MG/3 ML NEB.SOL* (0.083%) INH PRN (20:45)
[2018-03-14] MEDS ORDERED: Morphine VIAL* 4 MG/ML VIAL (1 ml vial) IV PRN (20:45)
[2018-03-14] MEDS ORDERED: NS 0.9% 1000 ML* 1,000 ML IV SCH (20:45)
[2018-03-14] MEDS ORDERED: Nitroglycerin TAB 0.4 MG* 0.4 MG TAB SL PRN (20:52)
[2018-03-14] MEDS ORDERED: Nitroglycerin 0.4 MG/HR PATCH* (10 MG) TRANSDERM PRN (20:52)
[2018-03-14] MEDS ORDERED: Dextrose 50% Syringe 50 ML* 25 GM/50 ML SYRINGE IV PUSH PRN (20:56)
[2018-03-14] MEDS ORDERED: Ondansetron SYRINGE* 4 MG/2 ML SYRINGE (from 40mg/20ml vial) IV ONE (21:00)
[2018-03-14] MEDS ORDERED: fentaNYL PATCH 50 MCG/HR TRANSDERM SCH (22:00)
[2018-03-14] MEDS: oxyCODONE/Acetamin 5/325 MG* TAB PO PRN (22:30)
[2018-03-14] MEDS: Metoclopramide IV* 5 MG/ML 2 ML VIAL IV SLOW PU PRN (22:30)
[2018-03-14] MEDS: NS 0.9% 1000 ML* 1,000 ML IV SCH (22:35)
[2018-03-14] MEDS: Ondansetron 40 MG VIAL* 2 MG/ML 20 ML VIAL IV PRN (23:07)
[2018-03-14] MEDS: Insulin LISPRO* 1 UNITS UNIT SUBCUT SCH (23:08)
[2018-03-14] MEDS: Heparin VIAL(*) 5000 UNITS/ML VIAL (FIVE THOUSAND) SUBCUT SCH (23:08)
[2018-03-14] MEDS: Omeprazole CAP* 20 MG PO SCH (23:10)
[2018-03-14] MEDS: Ticagrelor* 90 MG TAB PO SCH (23:10)
[2018-03-14] MEDS: CMCS Ranolazine (NF) 500 MG TAB PO SCH (23:10)
[2018-03-15] MEDS: NS 0.9% 1000 ML* 1,000 ML IV SCH ×2 (01:59→10:04)
[2018-03-15] MEDS: Ondansetron 40 MG VIAL* 2 MG/ML 20 ML VIAL IV PRN (03:06)
[2018-03-15] MEDS: Metoclopramide IV* 5 MG/ML 2 ML VIAL IV SLOW PU PRN (05:15)
[2018-03-15] MEDS: Heparin VIAL(*) 5000 UNITS/ML VIAL (FIVE THOUSAND) SUBCUT SCH (05:15)
--- NOTE | 2018-03-15 06:35 | HP ---
CC: Tito Saunders MD * HISTORY AND PHYSICAL: DATE OF ADMISSION: 03/14/18 ATTENDING HOSPITALIST: Agapito Barnett MD * (DICTATED BY TOM YU ) PRIMARY CARE PROVIDER: Dr. Tito Saunders. CHIEF COMPLAINT: Nausea and vomiting x2 days. HISTORY OF PRESENT ILLNESS: Mr. Kaye is a 47-year-old male whose past medical history is significant for cyclic vomiting, gastroparesis, uncontrolled diabetes mellitus, coronary artery disease for which he is status post CABG and PCI, hyperlipidemia, hypertension and multiple other medical issues who presented to the emergency room earlier this evening with complaints of 2 days history of worsening nausea and vomiting. The patient had similar episodes in the past due to his longstanding history of cyclic vomiting syndrome with multiple admissions related to this issue. He was here most recently back in and was admitted for a few days due to similar complaints with associated coffee-ground emesis, had GI consultation, endoscopy and there was only evidence of gastritis, was treated with PPI. The patient was hydrated well back then and discharged home in stable condition. He returned to the emergency room this evening, reporting that for the past couple of days he has been having similar complaints. He has been checking his blood glucose at home and it has been "way out of range." He denies any chest pain, diaphoresis, however, he continued to have intermittent epigastric pain very similar to associated pain with these episodes. He has Zofran, Reglan, and Compazine at home which helped slightly with nausea, but patient was unable to keep anything down and not sure if his medications stayed long enough in his stomach when he took them this morning. He denies any diarrhea or recent changes in the bowel habits. Given his episodes of severe nausea, vomiting with associated dehydration, he has not been able to void since earlier this morning. He also has history of unspecific urinary retention that needed straight catheterization in the past; however, he denies any suprapubic fullness or pain at the time of admission. The patient was evaluated in the emergency room and was found to have slightly elevated white count of 13,000; however, his hemoglobin and hematocrit were stable. Chemistry panel with normal sodium, potassium and elevated glucose of 273 as well as elevated lactic acid of 3.2. Given his ongoing symptoms and his longstanding history of cyclic vomiting, we were asked to see the patient for further evaluation and to consider admission under medical services. PAST MEDICAL HISTORY: As mentioned above significant for: 1. Gastroparesis. 2. Cyclic vomiting. 3. Diabetes mellitus type 2. 4. Neuropathy. 5. Hyperlipidemia. 6. Coronary artery disease for which he had coronary bypass graft as well as PCI in the past. 7. Hypertension. 8. Chronic pain. 9. GERD with history of gastritis and GI bleed. 10. Depression. 11. Insomnia. PAST SURGICAL HISTORY: Significant for, 1. CABG in 2008. 2. Cholecystectomy in 2017. MEDICATIONS: His current medications at home include: 1. Aspirin 81 mg p.o. q. daily. 2. Lipitor 80 mg p.o. q.p.m. 3. Zetia 10 mg p.o. q. daily. 4. Duragesic patch 50 mcg transdermal q.72 hours. 5. Metformin 500 mg p.o. b.i.d. 6. Reglan 10 mg p.o. q.6 hours as needed for nausea. 7. Metoprolol 25 mg p.o. q. daily and metoprolol 50 mg p.o. q.p.m. 8. Nitroglycerin 0.4 mg/hour patch transdermal p.r.n. for chest pain as well as nitroglycerin tablets 0.4 mg sublingual q.5 minutes as needed for angina. 9. Omeprazole 20 mg p.o. b.i.d. 10. Zofran 8 mg p.o. b.i.d. p.r.n. for nausea. 11. Protonix 40 mg p.o. q.p.m. 12. Compazine 5 mg p.o. q.6 hours p.r.n. for nausea. 13. Altace 5 mg p.o. q.p.m. 14. Ranexa 1000 mg p.o. b.i.d. 15. Terazosin 2 mg p.o. q.p.m. 16. Brilinta 90 mg p.o. b.i.d. ALLERGIES: Include cat dandruff, ERYTHROMYCIN BASE, and ORAL CONTRAST. FAMILY HISTORY: The patient's mother and father both had CHF, otherwise no other history of malignancies. SOCIAL HISTORY: The patient has never smoked. He denies alcohol intake. He occasionally smokes marijuana for pain relief. 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 He is and has one child and healthcare proxy is his . REVIEW OF SYSTEMS: A 14-point review of system was reviewed and it is negative except for otherwise mentioned in HPI. PHYSICAL EXAMINATION GENERAL: He is a middle-aged gentleman, appears older than stated age, slightly uncomfortable and pacing in the room in no acute distress or discomfort. VITAL SIGNS: Revealed a blood pressure of 195/90, pulse of 71, respirations of 16, temperature of 96.2 and O2 sats of 98% on room air. HEENT: Head is normocephalic, atraumatic, sclera anicteric, PERRLA, EOMs intact. Oropharynx is pink and dry. NECK: Supple, trachea midline. No cervical adenopathy or thyromegaly. LUNGS: Clear to auscultation bilaterally. HEART: Regular rate and rhythm. Normal S1, S2 without rubs, murmurs or gallops. BACK: Normal curvature. No CVA tenderness. ABDOMEN: Soft and nondistended. There is moderate epigastric tenderness noted on palpation without guarding, rigidity, or rebound tenderness. There are no hernias, masses, or hepatosplenomegaly. EXTREMITIES: Without cyanosis, clubbing or edema. NEUROLOGIC: Grossly intact. He is awake, alert, and oriented x3. RECTAL: Exam deferred at this time. LABORATORY WORKUP: CBC today with white count of 13,000. Hemoglobin 15.9, hematocrit 44, and platelets of 238. Chemistry with sodium of 136, potassium 4.0, chloride 99, CO2 of 22. BUN of 10 and creatinine of 0.98. Glucose was 273 and lactic acid of 3.2. Troponin was 0.01 and then 0.0 and then 0.0 on a trend. LFTs essentially within normal limits. ACCESSORY DIAGNOSTIC DATA: EKG performed with no acute changes noted compared to last study and no ST changes. ASSESSMENT: A 47-year-old male with complicated past medical history significant for gastroparesis, cyclic vomiting, coronary artery disease, uncontrolled diabetes mellitus type 2 with neuropathy and chronic pain who presented to the emergency room with another episode of cyclic vomiting with associated nausea and epigastric pain for the past 2 days. RECOMMENDATION/PLAN: 1. Cyclic vomiting: This is a very typical presentation of another episodes of the patient's longstanding history of cyclic vomiting. He denies any coffee ground emesis or any evidence of GI bleeds. He does not have any melena or recent changes in the bowel habits. He will continue his aspirin and Brilinta given his history of stenting and coronary artery disease. We will also feel comfortable covering him with heparin knowing that he does not any evidence of GI bleed at this time. We will continue his Reglan, Zofran as needed for nausea as well as PPI and antacid therapy. There is no need for GI consultation at this time unless any evidence of upper GI bleed arise during his admission. 2. Chest pain: The patient has a strong history of coronary artery disease with prior PCI and CABG done. His pain appears to be more epigastric in nature associated with gastroparesis and nausea and vomiting. His trending troponin done in the ED were negative. His EKG with no acute changes. He will not be treated with any suspicion regarding STEMI at this time. 3. Diabetes mellitus type 2: Again, the patient admitted with blood glucose of 273. We will hold his metformin and continue coverage with Lispro, sliding scale. At this point, I will keep him on clear liquid diet knowing his intolerance for food during the first day or two during these cycles. We will also provide IV fluid hydration and recheck labs in the morning. 4. Urinary retention: The patient has history of urinary retention in the past , if he does not void after 2 boluses of fluid, we will check for bladder scan and straight cath as needed. 5. Hypertension: We will continue his metoprolol. 6. Hyperlipidemia: We will continue Zetia and statin. 7. Chronic pain: We will continue his fentanyl patch and morphine as needed. 8. GERD: We will continue his PPI as well as Reglan. 9. Gastroparesis: We will continue his Reglan and Zofran as needed. 10. DVT prophylaxis: The patient is a [id number] risk. We will cover him with heparin subcu as long as there is no high suspicion for GI bleed. 11. Code status: He is a full code. 12. Disposition: Admit to medical floor for IV fluid hydration and symptomatic management of cyclic vomiting syndrome. TIME SPENT: Approximately 60 minutes was spent admitting this patient with 50% of the time taking history and performing physical exam. I have discussed the case with my attending Dr. Barnett who agreed to plans to care. TOM YU [id number]/[facility] #: [id number] HENRY
[2018-03-15] MEDS ORDERED: fentaNYL Patch Check Q Shift 1 NOTE SCH (07:00)
[2018-03-15 07:28] LABS: ABS Basophils 0 10^3/ul (0-0.2); ABS Eosinophils 0 10^3/ul (0-0.6); ABS Lymphocytes 2.5 10^3/ul (1.0-4.8); ABS Monocytes 0.9 10^3/ul (0-0.8); ABS Neutrophils 8.8 10^3/ul (1.5-7.7); ABS Nucleated RBC 0 10^3/ul; Eosinophil % 0 % (0-6); Hematocrit 37 % (42-52); Hemoglobin 13.4 g/dl (14.0-18.0); Lymphocyte % 20.6 % (25-47); Mean Corpuscular HGB Conc 36 g/dl (31-36); Mean Corpuscular Hemoglobin 30 pg (27-31); Mean Corpuscular Volume 84 fL (80-94); Mean Platelet Volume 8.5 um3 (7.4-10.4); Nucleated Red Blood Cells % 0; Platelet Count 223 10^3/ul (150-450); Red Blood Count 4.47 10^6/ul (4.00-5.40); Red Cell Distribution Width 13 % (10.5-15); White Blood Count 12.3 10^3/ul (3.5-10.8)
[2018-03-15 07:29] LABS: EGFR Non-African American 96.2 (>60)
[2018-03-15] MEDS: Ticagrelor* 90 MG TAB PO SCH (08:40)
[2018-03-15] MEDS: Insulin LISPRO* 1 UNITS UNIT SUBCUT SCH ×2 (08:41→12:56)
[2018-03-15] MEDS: Omeprazole CAP* 20 MG PO SCH (08:41)
[2018-03-15] MEDS: CMCS Ranolazine (NF) 500 MG TAB PO SCH (08:41)
[2018-03-15] MEDS ORDERED: Metoprolol Succinate XL TAB* 25 MG PO SCH (09:00)
[2018-03-15] MEDS ORDERED: Ezetimibe TAB* 10 MG PO SCH (09:00)
[2018-03-15] MEDS ORDERED: Aspirin EC TAB* 81 MG TAB.EC PO SCH (09:00)
[2018-03-15] MEDS: oxyCODONE/Acetamin 5/325 MG* TAB PO PRN (10:24)
--- NOTE | 2018-03-15 12:05 | ED ---
Daren Flanagan Angela, scribed for Dennis Kelly MD on 03/14/18 at 1346 . HPI Chest Pain - HPI Summary HPI Summary: This pt is a 47 y/o male presenting to [facility] c/o mid sternal chest pain, nausea , and vomiting since last night. Pt reports he was sleeping when he began vomiting last night. He then developed chest pain, pt states "from throwing up so much." Pt notes he has had approximately "dozens" of episodes of emesis, described as bile. He has diagnosis of gastroparesis. Denies fever. Additionally reports abd pain, SOB. Denies alcohol use. Pt uses a fentanyl patch for chronic back pain. PMHx includes triple bypass in 2008, SD, s/p cardiac stent placed last month, cholecystectomy. - History of Current Complaint Hx Obtained From: Patient Onset/Duration: Started Hours Ago, Still Present Timing: Lasting Hours Current Severity: Severe Pain Intensity: 8 Pain Scale Used: 0-10 Numeric Chest Pain Location: Mid Sternal Aggravating Factor(s): Nothing Alleviating Factor(s): Nothing Associated Signs and Symptoms: Positive: Chest Pain, Nausea, Abdominal Pain, Vomiting. Negative: Fever - Additional Pertinent History Primary Care Physician: [id number] - Allergy/Home Medications Allergies/Adverse Reactions: Allergies Allergy/AdvReac Type Severity Reaction Status Date / Time cat dander Allergy Eyes Verified 03/09/18 10:45 Itchy/Swollen/Red/Watery erythromycin base Allergy Nausea And Verified 03/09/18 10:45 [From Erythrocin] Vomiting oral contrast dye AdvReac Severe Vomiting Uncoded 03/14/18 13:36 Home Medications: Home Medications Aspirin EC TAB* [Ecotrin EC Low Dose 81 MG*] 81 mg PO QAM 03/14/18 [History Confirmed 03/14/18] Atorvastatin* [Lipitor*] 80 mg PO QPM 03/14/18 [History Confirmed 03/14/18] Ezetimibe TAB* [Zetia TAB*] 10 mg PO QAM 03/14/18 [History Confirmed 03/14/18] Metoclopramide TAB* [Reglan TAB*] 10 mg PO Q6H PRN 03/14/18 [History Confirmed 03/14/18] Metoprolol Succinate XL TAB* [Toprol XL TAB*] 25 mg PO QAM 03/14/18 [History Confirmed 03/14/18] Metoprolol Succinate XL TAB* [Toprol XL TAB*] 50 mg PO QPM 03/14/18 [History Confirmed 03/14/18] Nitroglycerin 0.4 MG/HR PATCH* [Nitroglycerin 10 MG PATCH*] 1 patch TRANSDERM DAILY PRN 03/14/18 [History Confirmed 03/14/18] Nitroglycerin TAB 0.4 MG* 0.4 mg SL Q5M PRN 03/14/18 [History Confirmed 03/14/18 ] Omeprazole CAP* [Prilosec CAP* 20 MG] 20 mg PO BID 03/14/18 [History Confirmed 03/14/18] Ondansetron TAB* [Zofran 4 MG Tab*] 8 mg PO BID PRN 03/14/18 [History Confirmed 03/14/18] Pantoprazole TAB (NF) [Protonix TAB (NF)] 40 mg PO QPM 03/14/18 [History Confirmed 03/14/18] Prochlorperazine TAB* [Compazine Tab*] 5 mg PO Q6H PRN 03/14/18 [History Confirmed 03/14/18] Ramipril CAP* [Altace CAP*] 5 mg PO QPM 03/14/18 [History Confirmed 03/14/18] Ranolazine (NF) [Ranexa (NF)] 1,000 mg PO BID 03/14/18 [History Confirmed ] Terazosin CAP* [Hytrin CAP*] 2 mg PO QPM 03/14/18 [History Confirmed 03/14/18] Ticagrelor* [Brilinta*] 90 mg PO BID 03/14/18 [History Confirmed 03/14/18] fentaNYL PATCH 50 MCG/HR* [Duragesic PATCH 50 Mcg/Hr*] 50 mcg TRANSDERM Q72H PRN 03/14/18 [History Confirmed 03/14/18] metFORMIN* [Glucophage 500 MG TAB *] 500 mg PO BID 03/14/18 [History Confirmed 03/14/18] PMH/Surg Hx/FS Hx/Imm Hx Endocrine/Hematology History: Reports: Hx Diabetes - TYPE 2 Denies: Hx Thyroid Disease Cardiovascular History: Reports: Hx Angina, Hx Coronary Artery Disease, Hx Hypercholesterolemia, Hx Hypertension - CONTROLLED WITH MEDS, Hx Myocardial Infarction, Other Cardiovascular Problems/Disorders - CARDIAC STENTS. CABG. HLD Denies: Hx Congestive Heart Failure, Hx Pacemaker/ICD, Hx Valvular Heart Disease Respiratory History: Denies: Hx Asthma, Hx Chronic Obstructive Pulmonary Disease (COPD) GI History: Reports: Hx Gall Bladder Disease - Removed. 05/04/17, Hx Gastroesophageal Reflux Disease - GASTROPARESIS, Other GI Disorders - GALLSTONES Denies: Hx Ulcer History: Denies: Hx Dialysis, Hx Renal Disease Musculoskeletal History: Reports: Hx Arthritis - hips and back, Hx Back Problems , Hx Bursitis - SHOULDERS, Other Musculoskeletal History - Degenerative joint disease, chronic lower back pain. hx OF OSTEOMYLITIS Sensory History: Reports: Hx Contacts or Glasses Denies: Hx Hearing Aid Opthamlomology History: Reports: Hx Contacts or Glasses Neurological History: Reports: Hx Migraine - OCCASSIONALY PER PT REPORT 1-2x per year, Other Neuro Impairments/Disorders - young's palsy, PAIN CLINIC PATIENT Psychiatric History: Reports: Hx Anxiety, Hx Depression, Hx Panic Disorder - does ok with mri foot, Hx Bipolar Disorder - Cancer History Hx Chemotherapy: No - Surgical History Surgery Procedure, Year, and Place: 2009 triple heart bypass;. 2008 cardiac cath no stents;. CARDIAC CATH 2 stents placed March 2014 at [facility] [place]. GALLBLADDER Apr; Hx Anesthesia Reactions: No - Immunization History Date of Tetanus Vaccine: utd Date of Influenza Vaccine: utd Infectious Disease History: No Infectious Disease History: Reports: History Other Infectious Disease - spinal meningitis Denies: Hx Clostridium Difficile, Hx Hepatitis, Hx Human Immunodeficiency Virus (HIV), Hx of Known/Suspected MRSA, Hx Shingles, Hx Tuberculosis, Hx Known/ Suspected VRE, Hx Known/Suspected VRSA, Traveled Outside the [place] in Last 30 Days - Family History Known Family History: Positive: Cardiac Disease - SD - mother & father, Hypertension, Diabetes - Social History Alcohol Use: None Alcohol Amount: 1-2 beers per week Hx Substance Use: No Substance Use Type: Reports: Marijuana Substance Use Comment - Amount & Last Used: 3x daily Hx Tobacco Use: Yes Smoking Status (MU): Former Smoker Type: Smokeless Tobacco Amount Used/How Often: Chews one tin per week Length of Time of Smoking/Using Tobacco: 4 years Have You Smoked in the Last Year: No Review of Systems Negative: Fever, Chills Negative: Erythema Negative: Sore Throat Positive: Chest Pain Positive: Shortness Of Breath. Negative: Cough Positive: Abdominal Pain, Vomiting, Nausea Negative: dysuria, hematuria Negative: Myalgia, Edema Negative: Rash Neurological: Other - NEG: dizziness All Other Systems Reviewed And Are Negative: Yes Physical Exam - Summary Physical Exam Summary: Constitutional: Well-developed, Well-nourished, Alert. (-) Distressed Skin: Warm, Dry HENT: Normocephalic; Atraumatic Eyes: Conjunctiva normal Neck: Musculoskeletal ROM normal neck. (-) JVD, (-) Stridor, (-) Tracheal deviation Cardio: Rhythm regular, rate normal, Heart sounds normal; Intact distal pulses; The pedal pulses are 2+ and symmetric. Radial pulses are 2+ and symmetric. (-) Murmur Pulmonary/Chest wall: Effort normal. (-) Respiratory distress, (-) Wheezes, (-) Rales. Palpation reproduces chest pain. Abd: Soft, Significant epigastric tenderness, (-) Distension, (-) Guarding, (-) Rebound Musculoskeletal: (-) Edema Lymph: (-) Cervical adenopathy Neuro: Alert, Oriented x3 Psych: Mood and affect Normal Triage Information Reviewed: Yes Vital Signs On Initial Exam: Initial Vitals Temp Pulse Resp BP Pulse Ox 96.2 F 71 16 137/80 99 03/14/18 13:28 03/14/18 13:28 03/14/18 13:28 03/14/18 13:28 03/14/18 13:28 Vital Signs Reviewed: Yes Diagnostics - Vital Signs Vital Signs Temp Pulse Resp BP Pulse Ox 03/14/18 13:36 71 23 100 03/14/18 13:28 96.2 F 71 16 137/80 99 - Laboratory Lab Results: Lab Results 03/14/18 03/14/18 03/14/18 Range/Units 13:58 13:58 13:58 WBC 13.4 H (3.5-10.8) 10^3/ul RBC 5.26 (4.00-5.40) 10^6/ul Hgb 15.9 (14.0-18.0) g/dl Hct 44 (42-52) % MCV 84 (80-94) fL MCH 30 (27-31) pg MCHC 36 (31-36) g/dl RDW 13 (10.5-15) % Plt Count 238 (150-450) 10^3/ul MPV 8.5 (7.4-10.4) um3 Neut % (Auto) 78.2 (38-83) % Lymph % (Auto) 17.0 L (25-47) % [place] % (Auto) 4.2 (0-7) % Eos % (Auto) 0.3 (0-6) % Baso % (Auto) 0.3 (0-2) % Absolute Neuts (auto) 10.5 H (1.5-7.7) 10^3/ul Absolute Lymphs (auto) 2.3 (1.0-4.8) 10^3/ul Absolute Monos (auto) 0.6 (0-0.8) 10^3/ul Absolute Eos (auto) 0 (0-0.6) 10^3/ul Absolute Basos (auto) 0 (0-0.2) 10^3/ul Absolute Nucleated RBC 0 10^3/ul Nucleated RBC % 0 Sodium 136 (135-145) mmol/L Potassium 4.0 (3.5-5.0) mmol/L Chloride 99 L (101-111) mmol/L Carbon Dioxide 22 (22-32) mmol/L Anion Gap 15 H (2-11) mmol/L BUN 10 (6-24) mg/dL Creatinine 0.98 (0.67-1.17) mg/dL Est GFR ( Amer) 98.8 (>60) Est GFR (Non-Af Amer) 81.6 (>60) BUN/Creatinine Ratio 10.2 (8-20) Glucose 273 H (70-100) mg/dL Lactic Acid 3.2 H* (0.5-2.0) mmol/L Calcium 10.3 (8.6-10.3) mg/dL Total Bilirubin 0.90 (0.2-1.0) mg/dL AST 10 L (13-39) U/L ALT 11 (7-52) U/L Alkaline Phosphatase 77 (34-104) U/L Troponin I 0.01 (<0.04) ng/mL Total Protein 7.9 (6.4-8.9) g/dL Albumin 4.7 (3.2-5.2) g/dL Globulin 3.2 (2-4) g/dL Albumin/Globulin Ratio 1.5 (1-3) 03/14/18 03/14/18 Range/Units 16:39 19:31 WBC (3.5-10.8) 10^3/ul RBC (4.00-5.40) 10^6/ul Hgb (14.0-18.0) g/dl Hct (42-52) % MCV (80-94) fL MCH (27-31) pg MCHC (31-36) g/dl RDW (10.5-15) % Plt Count (150-450) 10^3/ul MPV (7.4-10.4) um3 Neut % (Auto) (38-83) % Lymph % (Auto) (25-47) % [place] % (Auto) (0-7) % Eos % (Auto) (0-6) % Baso % (Auto) (0-2) % Absolute Neuts (auto) (1.5-7.7) 10^3/ul Absolute Lymphs (auto) (1.0-4.8) 10^3/ul Absolute Monos (auto) (0-0.8) 10^3/ul Absolute Eos (auto) (0-0.6) 10^3/ul Absolute Basos (auto) (0-0.2) 10^3/ul Absolute Nucleated RBC 10^3/ul Nucleated RBC % Sodium (135-145) mmol/L Potassium (3.5-5.0) mmol/L Chloride (101-111) mmol/L Carbon Dioxide (22-32) mmol/L Anion Gap (2-11) mmol/L BUN (6-24) mg/dL Creatinine (0.67-1.17) mg/dL Est GFR ( Amer) (>60) Est GFR (Non-Af Amer) (>60) BUN/Creatinine Ratio (8-20) Glucose (70-100) mg/dL Lactic Acid (0.5-2.0) mmol/L Calcium (8.6-10.3) mg/dL Total Bilirubin (0.2-1.0) mg/dL AST (13-39) U/L ALT (7-52) U/L Alkaline Phosphatase (34-104) U/L Troponin I 0.00 0.00 (<0.04) ng/mL Total Protein (6.4-8.9) g/dL Albumin (3.2-5.2) g/dL Globulin (2-4) g/dL Albumin/Globulin Ratio (1-3) Result Diagrams: 03/15/18 07:03 03/15/18 07:03 Lab Statement: Any lab studies that have been ordered have been reviewed, and results considered in the medical decision making process. - Radiology Chest XR Xray Interpretation: No Acute Changes - IMPRESSION: No active disease. Dr. Kelly has reviewed this radiology report. Radiology Interpretation Completed By: Radiologist - EKG 13:29 Cardiac Rate: NL - at 68 bpm EKG Rhythm: Sinus Rhythm EKG Interpretation: No STEMI. Re-Evaluation - Re-Evaluation First Eval Re-Evaluation Time: 17:30 Change: Unchanged Comment: Pt has no improvement. He is unable to tolerate PO. Chest Pain Course/Dx - Course Assessment/Plan: Pt is a 47 y/o male who presents with mid sternal chest pain, nausea, and vomiting since last night. Pt reports he was sleeping when he began vomiting last night. He then developed chest pain, pt states "from throwing up so much." Pt notes he has had approximately "dozens" of episodes of emesis, described as bile. He has diagnosis of gastroparesis. Denies fever. Additionally reports abd pain, SOB. Denies alcohol use. Suspect gastritis and esophagitis as cause of chest pain, but we will rule out SD. Chest XR shows no active disease. Lab results show WBC of 13.4, glucose of 273, lactic acid of 3.2, AST of 10. Two troponins are both 0.00. On re-evaluation, pt has no improvement and is not able to tolerate PO. I discussed pt care with Dr. Moralez , hospitalist, who accepted the pt for admission. - Diagnoses Provider Diagnoses: Gastroparesis - Provider Notifications Discussed Care Of Patient With: Severino Moralez Time Discussed With Above Provider: 17:33 Instructed by Provider To: Admit As Inpatient Discharge - Sign-Out/Discharge Documenting (check all that apply): Discharge/Admit/Transfer - Admit - Discharge Plan Condition: Stable Disposition: ADMITTED TO [facility] - Billing Disposition and Condition Condition: STABLE Disposition: Admitted to [facility] The documentation as recorded by the Daren shore Angela accurately reflects the service I personally performed and the decisions made by , Dennis Kelly MD.
[2018-03-15 12:21] VITALS: BP 115/72
[2018-03-15] MEDS ORDERED: Atorvastatin* 80 MG TAB PO SCH (18:00)
[2018-03-15] MEDS ORDERED: Terazosin CAP* 1 MG PO SCH (18:00)
[2018-03-15] MEDS ORDERED: Ramipril CAP* 5 MG PO SCH (18:00)
[2018-03-15] MEDS ORDERED: Metoprolol Succinate XL TAB* 50 MG PO SCH (18:00)
--- NOTE | 2018-03-16 05:44 | DS ---
CC: Dr. Tito Saunders * DISCHARGE SUMMARY: DATE OF ADMISSION: 03/14/18 DATE OF DISCHARGE: 03/15/18 PRIMARY CARE PROVIDER: Dr. Tito Saunders. MY ATTENDING WHILE IN THE HOSPITAL: Dr. Santos Mcmullen * (DICTATED BY TOM CAREY) PRIMARY DISCHARGE DIAGNOSES: 1. Cyclical vomiting. 2. Lactic acidosis. 3. Dehydration. 4. Gastroparesis. SECONDARY DISCHARGE DIAGNOSES: 1. Diabetes mellitus type 2. 2. Coronary artery disease, status post CABG and PCI. 3. Neuropathy. 4. Hyperlipidemia. 5. Hypertension. 6. Chronic back pain. 7. Gastroesophageal reflux disease with history of gastritis. 8. Depression. 9. Insomnia. STUDIES DONE WHILE IN THE HOSPITAL: Electrocardiogram from 03/14/18 shows early repolarization of V1, V2, and V3. No other borderline ST depression in lead I, incomplete right bundle branch block pattern. Normal axis, QTc of 461, rate of 68 consistent with previous examinations. Chest x-ray from 03/14/18 read as no active disease. MEDICATIONS AT DISCHARGE: 1. Compazine 5 mg p.o. q.6 hours as needed. 2. Zofran 8 mg p.o. b.i.d. as needed. 3. Reglan 10 mg p.o. q.6 hours as needed. 4. Metoprolol succinate 25 mg p.o. q.a.m. 5. Metoprolol succinate 50 mg p.o. q.p.m. 6. Ranexa 1000 mg p.o. b.i.d. 7. Lipitor 80 mg p.o. q.p.m. 8. Omeprazole 20 mg p.o. b.i.d. 9. Pantoprazole 40 mg p.o. q.p.m. 10. Aspirin 81 mg p.o. q.a.m. 11. Brilinta 90 mg p.o. b.i.d. 12. Metformin 500 mg p.o. b.i.d. 13. Zetia 10 mg p.o. q.a.m. 14. Ramipril 5 mg p.o. q.p.m. 15. Terazosin 2 mg p.o. q.p.m. 16. Nitroglycerin patch one patch transdermal daily as needed. 17. Nitroglycerin 0.4 mg sublingual q. 5 minutes as needed. 18. Fentanyl 50 mcg transdermal q.72 hours as needed. HOSPITAL COURSE: This is a brief summary of the patient's presentation. For more details, please see the history and physical from Calvin Montoya from . In brief, the patient is a 47-year-old male with past medical history significant for the above, who presents with 2 days of worsening nausea and vomiting. Patient has had a history of cyclical vomiting requiring repeated admission to the hospital with these episodes. The patient has chest pain and dehydration. The patient was unable to tolerate any p.o. intake. This was resistant to Zofran, Reglan, and Compazine. The patient had no change in his bowel habits. The patient had significant decrease in his urine output. The patient had no laboratory abnormalities except for white blood cell count of 13, 000, glucose 273, lactic acid of 3.2. Due to dehydration and the patient's ongoing nausea and vomiting, the patient was admitted to the hospital. The patient had no signs of GI bleed. The patient's vital signs were stable. The patient had no tachycardia, fevers, hypotension, hypoxia, tachypnea. The patient was treated with IV antiemetics with good resolution. The patient has ongoing use of marijuana, which he self prescribes for his chronic back pain. He states this is the only thing that works for him. The patient was seen by the pain clinic and was recently started on fentanyl patch but he states the cannabis works much better for his back pain. The patient's most recent use of the cannabis was on the day of admission. The patient had persistently elevated lactic acid of 2.2. On the morning of 03/15/18, the patient was given approximately 3 L of fluid while in the hospital and his lactic acidosis resolved. The patient stated that he would stop using cannabis and will pursue a nonpharmacologic methods to control his back pain. The patient was stable and now discharged on 03/15/18. PHYSICAL EXAMINATION ON THE DAY OF DISCHARGE: General: The patient is a 47- year- old male, who appears stated age and sitting comfortably in bed, in no acute distress. Vital Signs: At the time of discharge, temperature 97.9, pulse rate 67, respiratory rate 18, oxygen saturation 100% on room air, blood pressure 115/72. HEENT: Head, normocephalic, atraumatic. Sclerae anicteric. No conjunctival injection. Nasal mucosa moist. Oral mucosa moist. Moderate pharyngeal erythema. No discharge or exudate. Neck: Supple, nontender. No lymphadenopathy. No carotid bruits auscultated. No JVD. Cardiac: Regular rate and rhythm. No clicks, murmurs, gallops or rubs. Pulses 2+ in bilateral dorsalis pedis, posterior tibialis and radial areas. Respiratory: Clear to auscultation bilaterally. No wheezes, rales or rhonchi. Good air exchange bilaterally. Abdomen: Soft, nontender, nondistended. Bowel sounds present and normoactive in all 4 quadrants. No hepatosplenomegaly. No abdominal bruits auscultated. No hepatojugular reflux. Skin: Clean, dry, and intact. No rash. Genitourinary: No suprapubic or CVA tenderness. Neuro: Cranial nerves II through XII intact. Alert and oriented x3. No focal deficits. Psychiatric: Pleasant and cooperative. LABORATORY DATA ON DAY OF DISCHARGE: White blood cell count 12.3, hemoglobin 13.4, platelet count 223. Sodium 137, potassium 3.7, chloride 101, carbon dioxide 26, anion gap 10, BUN 9, creatinine 0.58. Glucose 244, calcium 9.1, lactic acid 2.2. Other laboratory data from admission, troponin 0.01 and then 0.00 X2. Lactic acid on admission 3.2. DISCHARGE PLAN: The patient will be discharged to home. It was discussed at length with the patient that he should follow up with Pain Management as soon as possible to discuss alternate methods to control his pain to marijuana which the patient states he will be stopping upon discharge. The patient is expecting to have relatively uncontrolled pain and that should be addressed as soon as possible. 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 The patient should continue with fentanyl patch, antiemetics as needed. The patient should be aggressive with the antiemetic therapy to help prevent dehydration. The patient should continue to take his antihyperglycemics and monitor his blood pressure plus fingersticks. The patient is to take these results to his primary care provider. The patient should follow up with his primary care provider within 1 week. The patient should return to the hospital for alarming symptoms such as chest pain, shortness of breath, or inability to tolerate p.o. intake. The patient should engage in activity as tolerated. TIME SPENT: Approximately 60 minutes were spent on this discharge, 30 of which were spent [id number] with the patient obtaining history and physical and discussing treatment plan. TOM CAREY [id number]/[facility] #: [id number] [place]
== END 2018-03-15 14:10 | disposition home or self-care (01) ==
LOC: ED 13:27 → MED 20:42
PROVIDERS: ADMIT Hospitalist; ATTEND Student in an Organized Health Care Education/Training Program
DX: G43.A0 Cyclical vomiting, in migraine, not intractable (principal); E87.2 Acidosis; E86.0 Dehydration; K31.84 Gastroparesis; E11.9 Type 2 diabetes mellitus without complications; I25.10 Atherosclerotic heart disease of native coronary artery without angina pectoris; Z95.1 Presence of aortocoronary bypass graft; G62.9 Polyneuropathy, unspecified; E78.5 Hyperlipidemia, unspecified; I10 Essential (primary) hypertension; G89.29 Other chronic pain; M54.9 Dorsalgia, unspecified; K21.9 Gastro-esophageal reflux disease without esophagitis; G47.00 Insomnia, unspecified; Z79.82 Long term (current) use of aspirin; Z79.899 Other long term (current) drug therapy; Z88.9 Allergy status to unspecified drugs, medicaments and biological substances; Z91.041 Radiographic dye allergy status; Z91.048 Other nonmedicinal substance allergy status; Z90.49 Acquired absence of other specified parts of digestive tract; M16.0 Bilateral primary osteoarthritis of hip; M47.9 Spondylosis, unspecified; F31.9 Bipolar disorder, unspecified; Z95.5 Presence of coronary angioplasty implant and graft
CPT/HCPCS: 36415; 71045; 80048; 80053; 83605; 84484; 85025; 93005; 96374; 99284; A9270-GY; G0378; J0780; J1644; J2270; J2405; J2550; J2765

== ENCOUNTER 2018-03-16 18:36 | Inpatient (IN) | payer MEDICARE ==
[2018-03-16] MEDS ORDERED: diPHENhydraMINE IV* 50 MG/ML 1 ml VIAL (BENADRYL) IV ONE (19:15)
[2018-03-16] MEDS ORDERED: NS 0.9% 1000 ML* 1,000 ML IV ONE (19:15)
[2018-03-16] MEDS ORDERED: Haloperidol INJ IV/IM* 5 MG/ML AMP IV SLOW PU ONE (19:15)
[2018-03-16 19:31] LABS: ABS Basophils 0 10^3/ul (0-0.2); ABS Eosinophils 0 10^3/ul (0-0.6); ABS Lymphocytes 1.3 10^3/ul (1.0-4.8); ABS Monocytes 0.4 10^3/ul (0-0.8); ABS Neutrophils 10.2 10^3/ul (1.5-7.7); ABS Nucleated RBC 0 10^3/ul; Eosinophil % 0 % (0-6); Hematocrit 43 % (42-52); Hemoglobin 15.1 g/dl (14.0-18.0); Lymphocyte % 10.9 % (25-47); Mean Corpuscular HGB Conc 35 g/dl (31-36); Mean Corpuscular Hemoglobin 30 pg (27-31); Mean Corpuscular Volume 84 fL (80-94); Mean Platelet Volume 8.1 um3 (7.4-10.4); Nucleated Red Blood Cells % 0; Platelet Count 231 10^3/ul (150-450); Red Blood Count 5.11 10^6/ul (4.00-5.40); Red Cell Distribution Width 13 % (10.5-15); White Blood Count 11.9 10^3/ul (3.5-10.8)
[2018-03-16 19:48] LABS: EGFR Non-African American 92.4 (>60)
[2018-03-16] MEDS ORDERED: Al Hydrox/Mg Hydrox/Simet LIQ* 30 ML UDC PO PRN (21:59)
[2018-03-16] MEDS ORDERED: Magnesium Hydroxide LIQ* 30 ML UDC PO PRN (21:59)
[2018-03-16] MEDS ORDERED: oxyCODONE/Acetamin 5/325 MG* TAB PO PRN (21:59)
[2018-03-16] MEDS ORDERED: Acetaminophen TAB* 325 MG PO PRN (21:59)
[2018-03-16] MEDS ORDERED: Albuterol 2.5 MG/3 ML NEB.SOL* (0.083%) INH PRN (21:59)
[2018-03-16] MEDS ORDERED: Prochlorperazine TAB* 10 MG PO PRN (22:04)
[2018-03-16] MEDS ORDERED: Metoclopramide TAB* 10 MG PO PRN (22:04)
[2018-03-16] MEDS ORDERED: Ondansetron TAB* 4 MG PO PRN (22:04)
[2018-03-16] MEDS ORDERED: Dextrose 50% Syringe 50 ML* 25 GM/50 ML SYRINGE IV PUSH PRN (22:06)
--- NOTE | 2018-03-16 23:25 | HP ---
CC: Dr. Tito Saunders * ADMISSION HISTORY AND PHYSICAL: DATE OF ADMISSION: 03/16/18 ATTENDING HOSPITALIST: Agapito aBrnett MD * (DICTATED BY TOM YU ) PRIMARY CARE PROVIDER: Dr. Tito Saunders. CHIEF COMPLAINT: Nausea and vomiting for the past 2 days. HISTORY OF PRESENT ILLNESS: Mr. Kaye is a 47-year-old gentleman, who is well known to us from prior admission just 48 hours ago, who has past medical history significant for cyclic vomiting syndrome, gastroparesis, uncontrolled diabetes mellitus as well as coronary artery disease, for which he had CABG and PCI done. He returned to the emergency room this evening complaining of nausea and vomiting since discharged from the hospital yesterday. The patient was admitted for observation 2 days ago for similar complaints. He was given IV fluid hydration and symptomatic management of his nausea and vomiting. He was able to tolerate liquid diet and was slowly advanced at home. He was discharged yesterday and reports feeling similar complaints of nausea and vomiting as well as epigastric pain that have not completely resolved. He returned to the emergency room this evening and laboratory workup was done revealing no evidence of anemia or electrolyte disturbance. He had mentioned that he has been thinking about changing his primary care provider since he has not seen him in a long time and he would like to have more control of medication at home and he reports being compliant with his medication on a daily basis. Given his ongoing symptoms and his known history of cyclic vomiting and gastroparesis, the patient will be admitted tonight for observation and IV fluid hydration. PAST MEDICAL HISTORY: Unchanged from last visit and significant for: 1. Gastroparesis. 2. Cyclic vomiting. 3. Diabetes mellitus, type 2. 4. Neuropathy. 5. Hyperlipidemia. 6. Coronary artery disease. 7. Hypertension. 8. Chronic pain. 9. GERD with history of gastritis and GI bleed. 10. Depression. 11. Insomnia. PAST SURGICAL HISTORY: Significant for CABG in 2009 and cholecystectomy in 2017. MEDICATIONS: Current medications unchanged from prior admission include: 1. Aspirin 81 mg p.o. daily. 2. Lipitor 80 mg p.o. q.p.m. 3. Zetia 10 mg p.o. daily. 4. Duragesic patch 50 mcg transdermal q.72 hours. 5. Metformin 500 mg p.o. b.i.d. 6. Reglan 10 mg p.o. q.6 hours as needed for nausea. 7. Metoprolol 25 mg p.o. daily. 8. Metoprolol 50 mg p.o. q.h.s. 9. Nitroglycerin 0.4 mg patch transdermal p.r.n. as well as tablet 0.4 mg sublingual q.5 minutes as needed for angina. 10. Omeprazole 20 mg p.o. b.i.d. 11. Zofran 8 mg p.o. b.i.d. p.r.n. for nausea. 12. Protonix 40 mg p.o. q.p.m. 13. Compazine 5 mg q.6 hours p.r.n. for nausea. 14. Altace 5 mg p.o. q.p.m. 15. Ranexa 1000 mg p.o. b.i.d. 16. Terazosin 2 mg p.o. q.p.m. 17. Brilinta 90 mg p.o. b.i.d. ALLERGIES: Include CAT DANDRUFF, ERYTHROMYCIN BASE, and ORAL CONTRAST. FAMILY HISTORY: Unchanged. SOCIAL HISTORY: Unchanged from prior admission. REVIEW OF SYSTEMS: Fourteen points review of systems was evaluated and were essentially negative. PHYSICAL EXAMINATION GENERAL: He appears older than stated age, slightly uncomfortable . VITAL SIGNS: Blood pressure of 166/97, pulse of 80, respirations of 18, O2 of 100% and temperature of 98.5. HEENT: Head is normocephalic, atraumatic. Sclerae anicteric. PERRLA, EOMs intact. Oropharynx is pink and moist. NECK: Supple, trachea midline. No cervical lymphadenopathy, thyromegaly or JVD. HEART: Regular rate and rhythm. Normal S1 and S2 without rubs, murmurs or gallops. BACK: With normal curvature. No CVA tenderness. ABDOMEN: Soft, nontender, nondistended. There are no hernias, masses or hepatosplenomegaly. EXTREMITIES: Without cyanosis, clubbing or edema. RECTAL: Deferred at this time. NEUROLOGIC: Grossly intact. LABORATORY DATA: CBC with white count of 11,900, hemoglobin 15.1, hematocrit 43, and platelets 231. Chemistry panel with sodium 135, potassium 3.4, chloride 94, CO2 of 22, BUN of 8, and creatinine of 0.8. His glucose is 267. LFTs and lipase within normal limits. IMPRESSION: A 47-year-old male with complicated past medical history significant for gastroparesis, cyclic vomiting syndrome, coronary artery disease and uncontrolled diabetes mellitus with associated neuropathy, and chronic pain, who presented to the emergency room again after another episode of cyclic vomiting, for which he was admitted 2 days ago and discharged yesterday. RECOMMENDATION: 1. Cyclic vomiting. This is a very typical presentation. We will provide IV hydration and continue symptomatic treatment with Zofran and Reglan. There is no need for GI consult at this time given his history of GI bleed. 2. Chest pain. Again, there is evidence of GI bleed at this time. His epigastric pain associated with gastroparesis with nausea and vomiting. 3. Diabetes mellitus, type 2. We will continue coverage with sliding scale using lispro and do glucose checks. 4. Urinary retention. The patient voided prior to presentation and he denies any complaints of suprapubic fullness. 5. Hypertension. Continue metoprolol. 6. Hyperlipidemia. We will continue Zetia and statin. 7. Gastroparesis. We will continue Reglan and Zofran as needed. 8. DVT prophylaxis. He is a high risk, covering with heparin subcu. 9. Code status. He is a full code. TIME SPENT: Approximately 45 minutes spent admitting this patient with greater than 50% of the time obtaining history and performing physical exam. I discussed the case with my attending, Dr. Barnett, who agreed to plan of care. TOM YU [id number]/CPS #: [id number] HENRY
[2018-03-17] MEDS: NS 0.9% 1000 ML* 1,000 ML IV SCH ×3 (00:45→16:49)
[2018-03-17] MEDS: Heparin VIAL(*) 5000 UNITS/ML VIAL (FIVE THOUSAND) SUBCUT SCH ×4 (01:15→21:39)
[2018-03-17] MEDS: PROCHLORPERAZINE INJ 5 MG/ML 2 ML VIAL IV PRN ×2 (02:00→07:46)
[2018-03-17] MEDS: fentaNYL PATCH 50 MCG/HR TRANSDERM SCH (03:09)
[2018-03-17] MEDS: Insulin LISPRO* 1 UNITS UNIT SUBCUT SCH ×5 (03:54→21:59)
[2018-03-17] MEDS: Metoclopramide IV* 5 MG/ML 2 ML VIAL IV PRN ×2 (04:57→17:51)
--- NOTE | 2018-03-17 06:23 | ED ---
Alejo Flanagan Tiffany, scribed for Mychal Solano MD on 03/16/18 at 1956 . Complex/Multi-Sys Presentation - HPI Summary HPI Summary: 47 year [facility] [place] of vomiting since yesterday evening. Symptoms aggravated by nothing. Symptoms alleviated by nothing. Patient reports nausea, chest pain, shortness of breath. Patient discharged from [facility] yesterday with dx gastroparesis. Similar symptoms before, requests IV fluids. - History Of Current Complaint Chief Complaint: EDNauseaVomitDiarrh Time Seen by Provider: 03/16/18 19:16 Hx Obtained From: Patient Onset/Duration: Lasting Days - yesterday evening, Still Present Timing: Constant Aggravating Factor(s): nothing Alleviating Factor(s): nothing Associated Signs And Symptoms: Positive: SOB, Chest Pain, Nausea - Allergies/Home Medications Allergies/Adverse Reactions: Allergies Allergy/AdvReac Type Severity Reaction Status Date / Time cat dander Allergy Eyes Verified 03/09/18 10:45 Itchy/Swollen/Red/Watery erythromycin base Allergy Nausea And Verified 03/09/18 10:45 [From Erythrocin] Vomiting oral contrast dye AdvReac Severe Vomiting Uncoded 03/14/18 13:36 PMH/Surg Hx/FS Hx/Imm Hx Previously Healthy: No Endocrine/Hematology History: Reports: Hx Diabetes - TYPE 2 Denies: Hx Thyroid Disease Cardiovascular History: Reports: Hx Angina, Hx Coronary Artery Disease, Hx Hypercholesterolemia, Hx Hypertension - CONTROLLED WITH MEDS, Hx Myocardial Infarction, Other Cardiovascular Problems/Disorders - CARDIAC STENTS. CABG. HLD Denies: Hx Congestive Heart Failure, Hx Pacemaker/ICD, Hx Valvular Heart Disease Respiratory History: Denies: Hx Asthma, Hx Chronic Obstructive Pulmonary Disease (COPD) GI History: Reports: Hx Gall Bladder Disease - Removed. 05/04/17, Hx Gastroesophageal Reflux Disease - GASTROPARESIS, Other GI Disorders - GALLSTONES Denies: Hx Ulcer History: Denies: Hx Dialysis, Hx Renal Disease Musculoskeletal History: Reports: Hx Arthritis - hips and back, Hx Back Problems , Hx Bursitis - SHOULDERS, Other Musculoskeletal History - Degenerative joint disease, chronic lower back pain. hx OF OSTEOMYLITIS Sensory History: Reports: Hx Contacts or Glasses Denies: Hx Hearing Aid Opthamlomology History: Reports: Hx Contacts or Glasses Neurological History: Reports: Hx Migraine - OCCASSIONALY PER PT REPORT 1-2x per year, Other Neuro Impairments/Disorders - young's palsy, PAIN CLINIC PATIENT Psychiatric History: Reports: Hx Anxiety, Hx Depression, Hx Panic Disorder - does ok with mri foot, Hx Bipolar Disorder - Cancer History Hx Chemotherapy: No - Surgical History Surgery Procedure, Year, and Place: 2009 triple heart bypass;. 2008 cardiac cath no stents;. CARDIAC CATH 2 stents placed March 2014 at [facility]. GALLBLADDER Apr; Hx Anesthesia Reactions: No - Immunization History Date of Tetanus Vaccine: utd Date of Influenza Vaccine: utd Infectious Disease History: No Infectious Disease History: Reports: History Other Infectious Disease - spinal meningitis Denies: Hx Clostridium Difficile, Hx Hepatitis, Hx Human Immunodeficiency Virus (HIV), Hx of Known/Suspected MRSA, Hx Shingles, Hx Tuberculosis, Hx Known/ Suspected VRE, Hx Known/Suspected VRSA, Traveled Outside the [place] in Last 30 Days - Family History Known Family History: Positive: Cardiac Disease - [place] - mother & father, Hypertension, Diabetes - Social History Alcohol Use: Weekly Alcohol Amount: 1-2 beers per week Hx Substance Use: Yes Substance Use Type: Reports: Marijuana, Prescribed Substance Use Comment - Amount & Last Used: 3x daily Hx Tobacco Use: Yes Smoking Status (MU): Former Smoker Type: Smokeless Tobacco Amount Used/How Often: Chews one tin per week Length of Time of Smoking/Using Tobacco: 4 years Have You Smoked in the Last Year: No Review of Systems Positive: Chest Pain Positive: Shortness Of Breath Positive: Vomiting, Nausea All Other Systems Reviewed And Are Negative: Yes Physical Exam - Summary Physical Exam Summary: Appearance: Well appearing, mild to moderate pain distress Skin: warm, dry, reflects adequate perfusion. sternotomy scar on chest Head/face: normal Eyes: EOMI, JEROME ENT: normal, mucous membranes moist Neck: supple, non-tender Respiratory: CTA, breath sounds present Cardiovascular: RRR, pulses symmetrical Abdomen: diffusely tender Bowel Sounds: decreased Musculoskeletal: normal, strength/ROM intact, no lower extremity edema Neuro: normal, sensory motor intact, A&Ox3 Triage Information Reviewed: Yes Vital Signs On Initial Exam: Initial Vitals Temp Pulse Resp BP Pulse Ox 98.5 F 93 18 142/95 100 03/16/18 18:39 03/16/18 18:39 03/16/18 18:39 03/16/18 18:39 03/16/18 18:39 Vital Signs Reviewed: Yes Diagnostics - Vital Signs Vital Signs Temp Pulse Resp BP Pulse Ox 03/16/18 18:51 86 26 150/104 100 03/16/18 18:49 84 100 03/16/18 18:39 98.5 F 93 18 142/95 100 - Laboratory Lab Results: Lab Results 03/16/18 03/16/18 Range/Units 19:24 19:24 WBC 11.9 H (3.5-10.8) 10^3/ul RBC 5.11 (4.00-5.40) 10^6/ul Hgb 15.1 (14.0-18.0) g/dl Hct 43 (42-52) % MCV 84 (80-94) fL MCH 30 (27-31) pg MCHC 35 (31-36) g/dl RDW 13 (10.5-15) % Plt Count 231 (150-450) 10^3/ul MPV 8.1 (7.4-10.4) um3 Neut % (Auto) 85.5 H (38-83) % Lymph % (Auto) 10.9 L (25-47) % [place] % (Auto) 3.4 (0-7) % Eos % (Auto) 0 (0-6) % Baso % (Auto) 0.2 (0-2) % Absolute Neuts (auto) 10.2 H (1.5-7.7) 10^3/ul Absolute Lymphs (auto) 1.3 (1.0-4.8) 10^3/ul Absolute Monos (auto) 0.4 (0-0.8) 10^3/ul Absolute Eos (auto) 0 (0-0.6) 10^3/ul Absolute Basos (auto) 0 (0-0.2) 10^3/ul Absolute Nucleated RBC 0 10^3/ul Nucleated RBC % 0 Sodium 135 (135-145) mmol/L Potassium 3.4 L (3.5-5.0) mmol/L Chloride 94 L (101-111) mmol/L Carbon Dioxide 22 (22-32) mmol/L Anion Gap 19 H (2-11) mmol/L BUN 8 (6-24) mg/dL Creatinine 0.88 (0.67-1.17) mg/dL Est GFR ( Amer) 111.8 (>60) Est GFR (Non-Af Amer) 92.4 (>60) BUN/Creatinine Ratio 9.1 (8-20) Glucose 267 H (70-100) mg/dL Calcium 10.0 (8.6-10.3) mg/dL Total Bilirubin 1.00 (0.2-1.0) mg/dL AST 13 (13-39) U/L ALT 13 (7-52) U/L Alkaline Phosphatase 71 (34-104) U/L Troponin I 0.03 (<0.04) ng/mL Total Protein 8.0 (6.4-8.9) g/dL Albumin 4.8 (3.2-5.2) g/dL Globulin 3.2 (2-4) g/dL Albumin/Globulin Ratio 1.5 (1-3) Lipase < 10 L (11.0-82.0) U/L Result Diagrams: 03/16/18 19:24 03/16/18 19:24 Lab Statement: Any lab studies that have been ordered have been reviewed, and results considered in the medical decision making process. - EKG 19:20 Cardiac Rate: NL - 79 BPM EKG Rhythm: Sinus Rhythm EKG Interpretation: Normal axis. Poor R wave progression. Nonspecific ST elevation. Re-Evaluation - Re-Evaluation First Eval Re-Evaluation Time: 20:29 Comment: Patient refuses to be discharged, wants admission Complex Multi-Symp Course/Dx Course Of Treatment: Patient with chronic gastroparesis or possible cannabis induced hyperemesis syndrome presents with recurrent nausea and vomiting. He has not complained about pain as a major component of this. He was just discharged yesterday from the hospital. I tried Haldol and Benadryl along with hydration and the patient is not having any vomiting. Patient however refused to be discharged. Hospitalist was present in the ER and evaluated the patient for admission. There is no significant electrolyte abnormality. His request for admission may be penitentiary in nature. He has not followed up outpatient with GI. He does tell me that he quit smoking cannabis just recently given the potential for it to be the cause of his symptoms. - Diagnoses Provider Diagnoses: Synthetic cannabinoid abuse, Intractable nausea and vomiting, Diabetic gastroparesis - Physician Notifications Discussed Care Of Patient With: Agapito Barnett Time Discussed With Above Provider: 20:20 Instructed by Provider To: Other - Dr. Barnett, hospitalist, made aware of patient's case. He agrees to admit patient. Discharge - Sign-Out/Discharge Documenting (check all that apply): Discharge/Admit/Transfer - Admit - Discharge Plan Condition: Fair Disposition: ADMITTED TO [facility] - Billing Disposition and Condition Condition: FAIR Disposition: Admitted to [facility] The documentation as recorded by the [place]jo [place] Tiffany accurately reflects the service I personally performed and the decisions made by , Mychal Solano MD.
[2018-03-17 06:53] LABS: ABS Basophils 0 10^3/ul (0-0.2); ABS Eosinophils 0 10^3/ul (0-0.6); ABS Monocytes 0.8 10^3/ul (0-0.8); ABS Nucleated RBC 0 10^3/ul; Eosinophil % 0.1 % (0-6); Hematocrit 38 % (42-52); Hemoglobin 13.5 g/dl (14.0-18.0); Lymphocyte % 18.7 % (25-47); Mean Corpuscular HGB Conc 36 g/dl (31-36); Mean Corpuscular Hemoglobin 30 pg (27-31); Mean Corpuscular Volume 84 fL (80-94); Mean Platelet Volume 8.1 um3 (7.4-10.4); Nucleated Red Blood Cells % 0; Platelet Count 187 10^3/ul (150-450); Red Blood Count 4.54 10^6/ul (4.00-5.40); Red Cell Distribution Width 13 % (10.5-15); White Blood Count 10.9 10^3/ul (3.5-10.8)
[2018-03-17 07:12] LABS: EGFR Non-African American 109.5 (>60)
[2018-03-17] MEDS: fentaNYL Patch Check Q Shift 1 NOTE SCH ×2 (07:17→18:57)
[2018-03-17] MEDS: KCL 20 MEQ/100 ML IVPREMIX* 20 MEQ/100 ML BAG IV SCH ×3 (08:49→16:49)
[2018-03-17] MEDS: Metoprolol Succinate XL TAB* 25 MG PO SCH (08:53)
[2018-03-17] MEDS: Ondansetron INJ* 2 MG/ML VIAL IV PRN (09:06)
[2018-03-17] MEDS: COENZYME Q10 PO SCH (09:09)
[2018-03-17] MEDS: CMCS Ranolazine (NF) 500 MG TAB PO SCH ×3 (09:09→21:40)
[2018-03-17] MEDS: Aspirin EC TAB* 81 MG TAB.EC PO SCH ×2 (09:09→13:26)
[2018-03-17] MEDS: Ezetimibe TAB* 10 MG PO SCH ×2 (09:09→13:26)
[2018-03-17] MEDS: Omeprazole CAP* 20 MG PO SCH ×3 (09:09→21:41)
[2018-03-17] MEDS: Ticagrelor* 90 MG TAB PO SCH ×3 (09:09→21:41)
--- NOTE | 2018-03-17 14:42 | PN ---
Subjective Date of Service: 03/17/18 Family History: Unchanged from Admission Social History: Unchanged from Admission Past Medical History: Unchanged from Admission Objective Active Medications: Acetaminophen (Tylenol Tab*) 650 mg PO Q4H PRN PRN Reason: FEVER/PAIN Al Hydrox/Mg Hydrox/Simethicone (Maalox Plus*) 30 ml PO Q6H PRN PRN Reason: INDIGESTION Albuterol (Ventolin 2.5 Mg/3 Ml Neb.Frances*) 2.5 mg INH [id number] AWAKE PRN PRN Reason: sob/wheezing Amitriptyline HCl (Elavil Tab*) 50 mg PO BEDTIME [facility] Aspirin (Aspirin Ec Tab*) 81 mg PO QAM [facility] Last Admin: 03/17/18 13:26 Dose: 81 mg Atorvastatin Calcium (Lipitor*) 80 mg PO QPM [facility] Coenzyme Q10 (Coenzyme Q10 (Nf)) 1 cap PO DAILY [facility] Last Admin: 03/17/18 09:09 Dose: Not Given Dextrose (D50w Syringe 50 Ml*) 12.5 gm IV PUSH .FOR FS < 60 - SS PRN PRN Reason: FS < 60 Ezetimibe (Zetia Tab*) 10 mg PO QAM [facility] Last Admin: 03/17/18 13:26 Dose: 10 mg Fentanyl (Duragesic Patch 50 Mcg/Hr*) 50 mcg TRANSDERM Q72H [facility] Last Admin: 03/17/18 03:09 Dose: 50 mcg Heparin Sodium (Porcine) (Heparin Vial(*)) 5,000 units SUBCUT Q8HR [facility] Last Admin: 03/17/18 12:53 Dose: 5,000 units Sodium Chloride (Ns 0.9% 1000 Ml*) 1,000 mls @ 125 mls/hr IV PER RATE [facility] Last Admin: 03/17/18 08:48 Dose: 125 mls/hr Potassium Chloride (Potassium Chloride 20 Meq/100 Ml Ivpremix*) 20 meq in 100 mls @ 50 mls/hr IV Q2H [facility] Stop: 03/17/18 15:54 Last Admin: 03/17/18 12:51 Dose: 50 mls/hr Insulin Human Lispro (Humalog*) 0 units SUBCUT ACHS [facility]; Protocol Last Admin: 03/17/18 12:52 Dose: 4 units Magnesium Hydroxide (Milk Of Magnesia Liq*) 30 ml PO Q4H PRN PRN Reason: CONSTIPATION Metoclopramide HCl (Reglan Iv*) 10 mg IV Q6H PRN PRN Reason: NAUSEA Last Admin: 03/17/18 04:57 Dose: 10 mg Metoprolol Succinate (Toprol Xl Tab*) 25 mg PO QAM [facility] Last Admin: 03/17/18 08:53 Dose: 25 mg Metoprolol Succinate (Toprol Xl Tab*) 50 mg PO QPM [facility] Nitroglycerin (Nitroglycerin Tab 0.4 Mg*) 0.4 mg SL Q5M PRN PRN Reason: PAIN - CHEST Omeprazole (Prilosec Cap*) 20 mg PO BID [facility] Last Admin: 03/17/18 13:25 Dose: 20 mg Ondansetron HCl (Zofran Tab*) 8 mg PO BID PRN PRN Reason: NAUSEA Ondansetron HCl (Zofran Inj*) 4 mg IV Q6H PRN PRN Reason: NAUSEA Last Admin: 03/17/18 09:06 Dose: 4 mg Oxycodone/Acetaminophen (Percocet 5/325 Tab*) 1 tab PO Q4H PRN PRN Reason: Pain Pharmacy Profile Note (Fentanyl Patch Check Q Shift) 1 note N/A 0700,1900 [facility] Last Admin: 03/17/18 07:17 Dose: 1 note Prochlorperazine Edisylate (Compazine Inj*) 10 mg IV Q6H PRN PRN Reason: NAUSEA Last Admin: 03/17/18 07:46 Dose: 10 mg Ramipril (Altace Cap*) 5 mg PO QPM [facility] Ranolazine (Ranexa (Nf)) 1,000 mg PO BID [facility]; Protocol Last Admin: 03/17/18 13:26 Dose: 1,000 mg Terazosin HCl (Hytrin Cap*) 2 mg PO QPM [facility] Ticagrelor (Brilinta*) 90 mg PO BID [facility] Last Admin: 03/17/18 13:26 Dose: 90 mg Vital Signs - 8 hr 03/17/18 03/17/18 07:44 11:50 Temperature 98.0 F 98.3 F Pulse Rate 89 76 Respiratory 18 18 Rate Blood Pressure 178/95 110/66 (mmHg) O2 Sat by Pulse 100 99 Oximetry Oxygen Devices in Use Now: None Appearance: Patient is a 47yo male who appears stated age and is sitting in the bed in NAD. Eyes: No Scleral Icterus, PERRLA Ears/Nose/Mouth/Throat: NL Teeth, Lips, Gums, Clear Oropharnyx, Mucous Membranes Moist Neck: NL Appearance and Movements; NL JVP, Trachea Midline Respiratory: Symmetrical Chest Expansion and Respiratory Effort, Clear to Auscultation Cardiovascular: NL Sounds; No Murmurs; No JVD, RRR, No Edema Abdominal: No Hepatosplenomegaly, - - Tenderness to light and deep palpation diffusely. Lymphatic: No Cervical Adenopathy Extremities: No Edema, No Clubbing, Cyanosis Skin: No Rash or Ulcers, No Nodules or Sclerosis Neurological: Alert and Oriented x 3, NL Sensation, NL Muscle Strength and Tone , - - CN II-XII intact. Result Diagrams: 03/17/18 06:41 03/17/18 06:41 Additional Lab and Data: Lab Results Assess/Plan/Problems-Billing Assessment: Patient is a 47yo male with a PMH for cyclical vomiting, CAD, DM II, GI Bleed in the setting of vomiting, who presents with recurrent vomiting and nausea with dehydration who is improving with IV fluids and antiemetics. - Patient Problems (1) Nausea & vomiting Current Visit: No Status: Acute Onset Date: 10/08/14 Code(s): R11.2 - NAUSEA WITH VOMITING, UNSPECIFIED SNOMED Code(s): 39112166 Comment: Improved. But still deydrated and tolerating only clear liquids. Multifactorial. Known gastroparesis but has long periods of minimal symptoms followed by intense episodes of nausea and vomiting. Pattern was present before he began using cannabis 6 months ago for pain. Recommended cannabis cessation, reglan AC as ordered. Start Elavil and CoQ10 for cyclical vomiting syndrome. Continue omeprazole, reglan, zofran, and compazine. (2) Chronic pain Current Visit: No Status: Acute Code(s): G89.29 - OTHER CHRONIC PAIN SNOMED Code(s): 21818080 Comment: Follows with the pain clinic. Continue Fentanyl patch and oxycodone prn. Discussed extensively adjunctive pain control for back pain. (3) CAD (coronary artery disease) Current Visit: No Status: Chronic Code(s): I25.10 - ATHSCL HEART DISEASE OF [place] CORONARY ARTERY W/O ANG PCTRS SNOMED Code(s): 65755648 Comment: S/P CABG and stenting 10/2017. Continue aspirin, atorvastatin, metoprolol XL, brilinta and ranexa. (4) Diabetes mellitus type 2, controlled, with complications Current Visit: No Status: Chronic Code(s): E11.8 - TYPE 2 DIABETES MELLITUS WITH UNSPECIFIED COMPLICATIONS SNOMED Code(s): 81823879 Comment: BGs 200s. SSI in the hospital Patient to resume metformin at discharge. Will refer to upholstery mechanic at discharge. Does not want to go back to [facility]. (5) Dyslipidemia Current Visit: No Status: Chronic Priority: High Code(s): E78.5 - HYPERLIPIDEMIA, UNSPECIFIED SNOMED Code(s): 313268003 Comment: Continue atorvastatin and zetia. (6) Gastroparesis Current Visit: No Status: Chronic Code(s): K31.84 - GASTROPARESIS SNOMED Code(s): 240348241 Comment: Continue home metoclopramide. Consideration for advanced therapy if no improvements on other controller medications. (7) Hx of CABG Current Visit: No Status: Chronic Priority: High Comment: Recent cardiac cath with stenting 10/2017 Continue plavix and Aspirin. (8) Hypertension Current Visit: No Status: Chronic Code(s): I10 - ESSENTIAL (PRIMARY) HYPERTENSION SNOMED Code(s): 91762876 Comment: BP controlled. Continue metoprolol, ramipril. (9) DVT prophylaxis Current Visit: No Status: Acute Code(s): ASV8559 - SNOMED Code(s): 618862215 Comment: SCDs and Heparin SubQ. (10) Full code status Current Visit: No Status: Acute Code(s): Z78.9 - OTHER SPECIFIED HEALTH STATUS SNOMED Code(s): 475861131 Comment: Status and Disposition: Inpatient. Patient would like to follow with the [facility] and change his PCP.
[2018-03-17] MEDS: Metoprolol Succinate XL TAB* 50 MG PO SCH (17:19)
[2018-03-17] MEDS: Atorvastatin* 80 MG TAB PO SCH (17:19)
[2018-03-17] MEDS: Ramipril CAP* 5 MG PO SCH (17:19)
[2018-03-17] MEDS: Terazosin CAP* 1 MG PO SCH (17:20)
[2018-03-17] MEDS: Amitriptyline TAB* 50 MG PO SCH (21:41)
[2018-03-18] MEDS: NS 0.9% 1000 ML* 1,000 ML IV SCH ×2 (02:21→10:09)
[2018-03-18] MEDS: Heparin VIAL(*) 5000 UNITS/ML VIAL (FIVE THOUSAND) SUBCUT SCH ×3 (06:22→20:56)
[2018-03-18] MEDS: fentaNYL Patch Check Q Shift 1 NOTE SCH ×2 (06:48→20:53)
[2018-03-18] MEDS: COENZYME Q10 PO SCH (08:34)
[2018-03-18] MEDS: Metoclopramide IV* 5 MG/ML 2 ML VIAL IV PRN ×2 (08:35→21:32)
[2018-03-18] MEDS: Ticagrelor* 90 MG TAB PO SCH ×2 (08:35→20:55)
[2018-03-18] MEDS: Metoprolol Succinate XL TAB* 25 MG PO SCH (08:35)
[2018-03-18] MEDS: Omeprazole CAP* 20 MG PO SCH ×2 (08:35→20:54)
[2018-03-18] MEDS: Aspirin EC TAB* 81 MG TAB.EC PO SCH (08:35)
[2018-03-18] MEDS: Insulin LISPRO* 1 UNITS UNIT SUBCUT SCH ×4 (08:35→20:55)
[2018-03-18] MEDS: Ezetimibe TAB* 10 MG PO SCH (08:36)
[2018-03-18] MEDS: CMCS Ranolazine (NF) 500 MG TAB PO SCH ×2 (08:36→21:00)
[2018-03-18] MEDS: PROCHLORPERAZINE INJ 5 MG/ML 2 ML VIAL IV PRN ×2 (09:44→16:10)
[2018-03-18 09:54] LABS: ABS Basophils 0 10^3/ul (0-0.2); ABS Eosinophils 0.1 10^3/ul (0-0.6); ABS Lymphocytes 3.2 10^3/ul (1.0-4.8); ABS Monocytes 0.8 10^3/ul (0-0.8); ABS Nucleated RBC 0 10^3/ul; Eosinophil % 1.1 % (0-6); Hematocrit 36 % (42-52); Hemoglobin 12.4 g/dl (14.0-18.0); Lymphocyte % 34.5 % (25-47); Mean Corpuscular HGB Conc 35 g/dl (31-36); Mean Corpuscular Hemoglobin 30 pg (27-31); Mean Corpuscular Volume 85 fL (80-94); Mean Platelet Volume 8.1 um3 (7.4-10.4); Nucleated Red Blood Cells % 0; Platelet Count 188 10^3/ul (150-450); Red Blood Count 4.18 10^6/ul (4.00-5.40); Red Cell Distribution Width 13 % (10.5-15); White Blood Count 9.2 10^3/ul (3.5-10.8)
[2018-03-18 10:37] LABS: EGFR Non-African American 84.6 (>60)
[2018-03-18] MEDS: Ondansetron INJ* 2 MG/ML VIAL IV PRN ×2 (11:30→20:24)
[2018-03-18] MEDS ORDERED: Potassium Chlor TAB* 20 MEQ TAB.ER PO ONE ×2 (12:36→18:23)
[2018-03-18] MEDS ORDERED: Magnesium Sulfate 2 GM IV* 2 GM/50 ML BAG IVPB ONE (14:36)
--- NOTE | 2018-03-18 14:37 | PN ---
Subjective Date of Service: 03/18/18 Interval History: Reported by patients and primary nurse that patient was feeling well last night and this morning then ate this morning and developed n/v afterwards. On my exam he is laying in bed with eyes closed stating he doesnt feel well and his is answering for him. He does open his eyes and answers questions on my exam, reporting abdominal pain, reporting pain with light touch to abdomen ( with very very little pressure, almost none). He states it feels like he has stomach spasms. Per his this is his baseline at home and states "thats why I cant get him out of the house or to doctors appointment". She states though that he couldn't go home now feeling like this. She is worried he will become dehydrated again. he denies any abdominal bloating, diarrhea. No fevers or chills. He has been up to the bathroom with a steady gait. Family History: Unchanged from Admission Social History: Unchanged from Admission Past Medical History: Unchanged from Admission Objective Active Medications: Acetaminophen (Tylenol Tab*) 650 mg PO Q4H PRN PRN Reason: FEVER/PAIN Al Hydrox/Mg Hydrox/Simethicone (Maalox Plus*) 30 ml PO Q6H PRN PRN Reason: INDIGESTION Albuterol (Ventolin 2.5 Mg/3 Ml Neb.Frances*) 2.5 mg INH [id number] AWAKE PRN PRN Reason: sob/wheezing Amitriptyline HCl (Elavil Tab*) 50 mg PO BEDTIME [facility] Last Admin: 03/17/18 21:41 Dose: 50 mg Aspirin (Aspirin Ec Tab*) 81 mg PO QAM [facility] Last Admin: 03/18/18 08:35 Dose: 81 mg Atorvastatin Calcium (Lipitor*) 80 mg PO QPM [facility] Last Admin: 03/17/18 17:19 Dose: 80 mg Coenzyme Q10 (Coenzyme Q10 (Nf)) 1 cap PO DAILY [facility] Last Admin: 03/18/18 08:34 Dose: Not Given Dextrose (D50w Syringe 50 Ml*) 12.5 gm IV PUSH .FOR FS < 60 - SS PRN PRN Reason: FS < 60 Ezetimibe (Zetia Tab*) 10 mg PO QAM [facility] Last Admin: 03/18/18 08:36 Dose: 10 mg Fentanyl (Duragesic Patch 50 Mcg/Hr*) 50 mcg TRANSDERM Q72H [facility] Last Admin: 03/17/18 03:09 Dose: 50 mcg Heparin Sodium (Porcine) (Heparin Vial(*)) 5,000 units SUBCUT Q8HR [facility] Last Admin: 03/18/18 13:36 Dose: 5,000 units Sodium Chloride (Ns 0.9% 1000 Ml*) 1,000 mls @ 125 mls/hr IV PER RATE [facility] Last Admin: 03/18/18 10:09 Dose: 125 mls/hr Insulin Human Lispro (Humalog*) 0 units SUBCUT ACHS [facility]; Protocol Last Admin: 03/18/18 13:36 Dose: 2 units Magnesium Hydroxide (Milk Of Magnesia Liq*) 30 ml PO Q4H PRN PRN Reason: CONSTIPATION Metoclopramide HCl (Reglan Iv*) 10 mg IV Q6H PRN PRN Reason: NAUSEA Last Admin: 03/18/18 08:35 Dose: 10 mg Metoprolol Succinate (Toprol Xl Tab*) 25 mg PO QAM [facility] Last Admin: 03/18/18 08:35 Dose: 25 mg Metoprolol Succinate (Toprol Xl Tab*) 50 mg PO QPM [facility] Last Admin: 03/17/18 17:19 Dose: 50 mg Nitroglycerin (Nitroglycerin Tab 0.4 Mg*) 0.4 mg SL Q5M PRN PRN Reason: PAIN - CHEST Omeprazole (Prilosec Cap*) 20 mg PO BID [facility] Last Admin: 03/18/18 08:35 Dose: 20 mg Ondansetron HCl (Zofran Tab*) 8 mg PO BID PRN PRN Reason: NAUSEA Ondansetron HCl (Zofran Inj*) 4 mg IV Q6H PRN PRN Reason: NAUSEA Last Admin: 03/18/18 11:30 Dose: 4 mg Oxycodone/Acetaminophen (Percocet 5/325 Tab*) 1 tab PO Q4H PRN PRN Reason: Pain Pharmacy Profile Note (Fentanyl Patch Check Q Shift) 1 note N/A 0700,1900 [facility] Last Admin: 03/18/18 06:48 Dose: 1 note Prochlorperazine Edisylate (Compazine Inj*) 10 mg IV Q6H PRN PRN Reason: NAUSEA Last Admin: 03/18/18 09:44 Dose: 10 mg Ramipril (Altace Cap*) 5 mg PO QPM [facility] Last Admin: 03/17/18 17:19 Dose: 5 mg Ranolazine (Ranexa (Nf)) 1,000 mg PO BID [facility]; Protocol Last Admin: 03/18/18 08:36 Dose: 1,000 mg Terazosin HCl (Hytrin Cap*) 2 mg PO QPM [facility] Last Admin: 03/17/18 17:20 Dose: 2 mg Ticagrelor (Brilinta*) 90 mg PO BID [facility] Last Admin: 03/18/18 08:35 Dose: 90 mg Vital Signs - 8 hr 03/18/18 03/18/18 03/18/18 07:23 11:00 11:14 Temperature 97.4 F 98.5 F Pulse Rate 64 70 Respiratory 18 16 17 Rate Blood Pressure 126/71 155/80 (mmHg) O2 Sat by Pulse 100 100 Oximetry Oxygen Devices in Use Now: None Appearance: 47 yo male A+Ox3 appears to feel mildy ill Eyes: PERRLA Ears/Nose/Mouth/Throat: NL Teeth, Lips, Gums, Mucous Membranes Moist Neck: NL Appearance and Movements; NL JVP Respiratory: Symmetrical Chest Expansion and Respiratory Effort, Clear to Auscultation Cardiovascular: NL Sounds; No Murmurs; No JVD, RRR, No Edema Abdominal: - - soft, tender to palpation, no rebound, mild guarding Extremities: No Edema Skin: No Rash or Ulcers, No Nodules or Sclerosis Neurological: Alert and Oriented x 3, NL Sensation, NL Muscle Strength and Tone Lines/Tubes/Other Access: Clean, Dry and Intact Peripheral IV Nutrition: Taking PO's Result Diagrams: 03/18/18 09:36 03/18/18 09:36 Additional Lab and Data: Lab Results Assess/Plan/Problems-Billing Assessment: Patient is a 47yo male with a PMH for cyclical vomiting, CAD s/p stent placement , hx of limb ischemia, DM II, GI Bleed in the setting of vomiting, who presents with recurrent vomiting and nausea requiring IV fluids and antiemetics. - Patient Problems (1) Nausea & vomiting Comment: Was improving last night and this morning, after breakfast developed N/V and feeling unwell... per nurse he ate eggs this morning. Vomited x1, now feeling nausea. reports abdominal tenderness, no acute abdomen on assessment. Suspect Multifactorial. Known gastroparesis but has long periods of minimal symptoms followed by intense episodes of nausea and vomiting. Pattern was present before he began using cannabis 6 months ago for pain. Recommended cannabis cessation, reglan AC as ordered. Patient has had extensive work up and imaging including endoscopy 01/2018 with negative biopsies, mild gastritis/ esophagitis. CT abdomen 01/2018 Mild hiatal hernia noted (spoke to surgeon who said most likely is not causing the cyclic vomiting). Per this is his baseline at home. He reports he cannot keep anything down, and the patient and are concerned about going home. When looking at his labs it does not appear he is extremely dehydrated or malnourished, even looking back at his previous labs. He has presented many times with elevated lactic which could be secondary to his Metformin, plan to DC on discharge as this could be causing his repeated elevated lactic acid. - Plan to DC IVFs and see how he does overnight - Elavil and CoQ10 for cyclical vomiting syndrome started 03/17. - Continue omeprazole, reglan, zofran, and compazine Patient may benefit from seeing a Functional GI - he was strongly encouraged to follow up with GI as an outpatient, and if they felt necessary they could refer. Per , he will not go to doctors appointment because he doesnt feel well. Again, discussed with the pt he would benefit from close follow up. The plan at this time is to follow-up with [facility], then he is to be established at Dr. Brenner office for primary care. (2) Gastroparesis Comment: Continue home metoclopramide. (3) Depression Comment: - suspect the patient is depressed and consider that some of his symptoms could be psych related. Strongly encouraged follow up with a psychiatrist (4) Chronic pain Comment: Follows with the pain clinic. Continue Fentanyl patch and oxycodone prn. Discussed extensively adjunctive pain control for back pain. (5) CAD (coronary artery disease) Code(s): I25.10 - ATHSCL HEART DISEASE OF [place] CORONARY ARTERY W/O ANG PCTRS SNOMED Code(s): 93932580 Comment: S/P CABG and stenting 10/2017. Continue aspirin, atorvastatin, metoprolol XL, brilinta and ranexa. (6) Diabetes mellitus type 2, controlled, with complications Comment: Uncontrolled. HgA1C 9 BGs 200s. SSI in the hospital Patient to resume metformin at discharge. Pt plans to be a new patient of Dr. Brenner office. (7) Hypertension Comment: BP controlled. Continue metoprolol, ramipril. (8) DVT prophylaxis Comment: SCDs and Heparin SubQ. (9) Full code status Comment: Status and Disposition: Inpatient. Patient would like to follow with the [facility] and change his PCP.
[2018-03-18] MEDS ORDERED: NS 0.9% IVPB ONE (16:00)
[2018-03-18] MEDS ORDERED: MAGNESIUM SULFATE IVPB ONE (16:00)
[2018-03-18] MEDS ORDERED: KCL 20 MEQ/100 ML IVPREMIX* 20 MEQ/100 ML BAG IV SCH (16:00)
[2018-03-18] MEDS: Ramipril CAP* 5 MG PO SCH (18:18)
[2018-03-18] MEDS: Atorvastatin* 80 MG TAB PO SCH (18:18)
[2018-03-18] MEDS: Terazosin CAP* 1 MG PO SCH (18:18)
[2018-03-18] MEDS: Metoprolol Succinate XL TAB* 50 MG PO SCH (18:18)
[2018-03-18] MEDS: Amitriptyline TAB* 50 MG PO SCH (20:55)
[2018-03-19] MEDS: NS 0.9% 1000 ML* 1,000 ML IV SCH ×2 (00:20→00:32)
[2018-03-19] MEDS: Heparin VIAL(*) 5000 UNITS/ML VIAL (FIVE THOUSAND) SUBCUT SCH ×3 (06:09→22:49)
[2018-03-19] MEDS: fentaNYL Patch Check Q Shift 1 NOTE SCH ×2 (06:38→19:09)
[2018-03-19 07:04] LABS: EGFR Non-African American 87.8 (>60)
[2018-03-19] MEDS: Insulin LISPRO* 1 UNITS UNIT SUBCUT SCH ×4 (08:35→22:29)
[2018-03-19] MEDS: Ezetimibe TAB* 10 MG PO SCH (08:36)
[2018-03-19] MEDS: Omeprazole CAP* 20 MG PO SCH ×2 (08:36→22:48)
[2018-03-19] MEDS: Ticagrelor* 90 MG TAB PO SCH ×2 (08:36→22:48)
[2018-03-19] MEDS: Metoclopramide IV* 5 MG/ML 2 ML VIAL IV PRN (08:36)
[2018-03-19] MEDS: Aspirin EC TAB* 81 MG TAB.EC PO SCH (08:36)
[2018-03-19] MEDS: CMCS Ranolazine (NF) 500 MG TAB PO SCH ×2 (08:36→22:48)
[2018-03-19] MEDS: COENZYME Q10 PO SCH (08:40)
[2018-03-19] MEDS: Ondansetron INJ* 2 MG/ML VIAL IV PRN ×2 (09:06→15:27)
[2018-03-19] MEDS: Nitroglycerin TAB 0.4 MG* 0.4 MG TAB SL PRN ×3 (12:06→12:19)
--- NOTE | 2018-03-19 12:33 | PN ---
Subjective Date of Service: 03/19/18 Interval History: C/O midsternal chest pain starting 11:45 AM today. Level 7/10, went down to 5/ 10 after 3 NTG. He states it is similar to his [place]. He states he gets this pain about once a month, usually takes 3 NTG for it. He does no strenuous exercise at home. Family History: Unchanged from Admission Social History: Unchanged from Admission Past Medical History: Unchanged from Admission Objective Active Medications: Acetaminophen (Tylenol Tab*) 650 mg PO Q4H PRN PRN Reason: FEVER/PAIN Al Hydrox/Mg Hydrox/Simethicone (Maalox Plus*) 30 ml PO Q6H PRN PRN Reason: INDIGESTION Albuterol (Ventolin 2.5 Mg/3 Ml Neb.Frances*) 2.5 mg INH [id number] AWAKE PRN PRN Reason: sob/wheezing Amitriptyline HCl (Elavil Tab*) 50 mg PO BEDTIME [facility] Last Admin: 03/18/18 20:55 Dose: 50 mg Aspirin (Aspirin Ec Tab*) 81 mg PO QAM [facility] Last Admin: 03/19/18 08:36 Dose: 81 mg Atorvastatin Calcium (Lipitor*) 80 mg PO QPM [facility] Last Admin: 03/18/18 18:18 Dose: 80 mg Coenzyme Q10 (Coenzyme Q10 (Nf)) 1 cap PO DAILY [facility] Last Admin: 03/19/18 08:40 Dose: Not Given Dextrose (D50w Syringe 50 Ml*) 12.5 gm IV PUSH .FOR FS < 60 - SS PRN PRN Reason: FS < 60 Ezetimibe (Zetia Tab*) 10 mg PO QAM [facility] Last Admin: 03/19/18 08:36 Dose: 10 mg Fentanyl (Duragesic Patch 50 Mcg/Hr*) 50 mcg TRANSDERM Q72H [facility] Last Admin: 03/17/18 03:09 Dose: 50 mcg Heparin Sodium (Porcine) (Heparin Vial(*)) 5,000 units SUBCUT Q8HR [facility] Last Admin: 03/19/18 06:09 Dose: 5,000 units Insulin Human Lispro (Humalog*) 0 units SUBCUT ACHS [facility]; Protocol Last Admin: 03/19/18 08:35 Dose: 2 units Magnesium Hydroxide (Milk Of Magnesia Liq*) 30 ml PO Q4H PRN PRN Reason: CONSTIPATION Last Admin: 03/18/18 18:19 Dose: 30 ml Metoclopramide HCl (Reglan Iv*) 10 mg IV Q6H PRN PRN Reason: NAUSEA Last Admin: 03/19/18 08:36 Dose: 10 mg Metoprolol Succinate (Toprol Xl Tab*) 50 mg PO QPM [facility] Last Admin: 03/18/18 18:18 Dose: 50 mg Nitroglycerin (Nitroglycerin Tab 0.4 Mg*) 0.4 mg SL Q5M PRN PRN Reason: PAIN - CHEST Last Admin: 03/19/18 12:19 Dose: 0.4 mg Omeprazole (Prilosec Cap*) 20 mg PO BID [facility] Last Admin: 03/19/18 08:36 Dose: 20 mg Ondansetron HCl (Zofran Tab*) 8 mg PO BID PRN PRN Reason: NAUSEA Ondansetron HCl (Zofran Inj*) 4 mg IV Q6H PRN PRN Reason: NAUSEA Last Admin: 03/19/18 09:06 Dose: 4 mg Oxycodone/Acetaminophen (Percocet 5/325 Tab*) 1 tab PO Q4H PRN PRN Reason: Pain Pharmacy Profile Note (Fentanyl Patch Check Q Shift) 1 note N/A 0700,1900 [facility] Last Admin: 03/19/18 06:38 Dose: 1 note Prochlorperazine Edisylate (Compazine Inj*) 10 mg IV Q6H PRN PRN Reason: NAUSEA Last Admin: 03/18/18 16:10 Dose: 10 mg Ramipril (Altace Cap*) 5 mg PO QPM [facility] Last Admin: 03/18/18 18:18 Dose: 5 mg Ranolazine (Ranexa (Nf)) 1,000 mg PO BID [facility]; Protocol Last Admin: 03/19/18 08:36 Dose: 1,000 mg Terazosin HCl (Hytrin Cap*) 2 mg PO QPM [facility] Last Admin: 03/18/18 18:18 Dose: 2 mg Ticagrelor (Brilinta*) 90 mg PO BID [facility] Last Admin: 03/19/18 08:36 Dose: 90 mg Vital Signs - 8 hr 03/19/18 03/19/18 03/19/18 07:31 08:13 10:40 Temperature 97.9 F 97.5 F Pulse Rate 62 62 Respiratory 16 18 16 Rate Blood Pressure 101/64 95/57 (mmHg) O2 Sat by Pulse 100 100 Oximetry 03/19/18 03/19/18 03/19/18 11:54 12:08 12:13 Temperature 97.2 F Pulse Rate 73 76 73 Respiratory 20 Rate Blood Pressure 137/80 149/82 137/74 (mmHg) O2 Sat by Pulse 100 100 100 Oximetry 03/19/18 12:21 Temperature Pulse Rate 74 Respiratory Rate Blood Pressure 120/71 (mmHg) O2 Sat by Pulse 100 Oximetry Oxygen Devices in Use Now: None Appearance: Alert, sitting up in bed. In fair spirits, seems subdued. Eyes: No Scleral Icterus Neck: NL Appearance and Movements; NL JVP, No Thyroid Enlargement, Masses Respiratory: Symmetrical Chest Expansion and Respiratory Effort, Clear to Auscultation, Clear to Percussion Cardiovascular: RRR, No Edema, - - 1/6 systolic murmur RSB. Mild tenderness to palpation on sternum, pt states Extremities: No Edema, No Clubbing, Cyanosis, - Skin: No Rash or Ulcers, No Nodules or Sclerosis, - Neurological: Alert and Oriented x 3, NL Sensation Result Diagrams: 03/18/18 09:36 03/19/18 05:47 Additional Lab and Data: Lab Results Assess/Plan/Problems-Billing Assessment: Patient is a 47yo male with a PMH for cyclical vomiting, CAD s/p stent placement , hx of limb ischemia, DM II, GI Bleed in the setting of vomiting, who presents with recurrent vomiting and nausea requiring IV fluids and antiemetics. - Patient Problems (1) CAD (coronary artery disease) Current Visit: No Status: Chronic Code(s): I25.10 - ATHSCL HEART DISEASE OF [place] CORONARY ARTERY W/O ANG PCTRS SNOMED Code(s): 36226434 Comment: S/P CABG and stenting 10/2017. Continue aspirin, atorvastatin, ezetimide, metoprolol XL, brilinta and ranexa. Patient is having one of his usual chest pain attacks. Dr. Velasquez reviewed the ECG's and felt there was no significant change today. I spoke with Dr. Oswald who did not feel that further testing or a change in therapy was indicated. His 4 PM troponin was wnl. I will discharge the patient 7/1at his 's request. The patient is satisfied with this plan. (2) Gastroparesis Current Visit: Yes Status: Chronic Code(s): K31.84 - GASTROPARESIS SNOMED Code(s): 116405752 Comment: Amitriptyline was started to help his gastroparesis. Continue home metoclopramide. I encouraged GI fup as well. (3) Depression Current Visit: Yes Status: Acute Code(s): F32.9 - MAJOR DEPRESSIVE DISORDER , SINGLE EPISODE, UNSPECIFIED SNOMED Code(s): 99371539 Comment: Patient states he is depressed. Continue amitriptyline. Pt encouraged to discuss with his PCP getting counseling and/or psychiatric care. (4) Diabetes mellitus type 2, controlled, with complications Current Visit: Yes Status: Chronic Code(s): E11.8 - TYPE 2 DIABETES MELLITUS WITH UNSPECIFIED COMPLICATIONS SNOMED Code(s): 02736754 Comment: HgA1C 9.3 01/27/18. Patient to resume metformin at discharge. Pt plans to be a new patient of Dr. Brenner office. Status and Disposition: Inpatient. Patient would like to follow with the [facility] and change his PCP.
--- NOTE | 2018-03-19 16:32 | PN ---
Progress Note - Progress Note Date of Service: 03/19/18 Note: Time spent on discharge 50 minutes.
[2018-03-19] MEDS: Ramipril CAP* 5 MG PO SCH (17:41)
[2018-03-19] MEDS: Atorvastatin* 80 MG TAB PO SCH (17:41)
[2018-03-19] MEDS: Metoprolol Succinate XL TAB* 50 MG PO SCH (17:41)
[2018-03-19] MEDS: Terazosin CAP* 1 MG PO SCH (17:42)
[2018-03-19] MEDS: Amitriptyline TAB* 50 MG PO SCH (22:48)
[2018-03-19] MEDS: fentaNYL PATCH 50 MCG/HR TRANSDERM SCH (22:52)
--- NOTE | 2018-03-20 00:39 | DS ---
*CC: Tito Saunders MD; Dr. Oswald; Dr. Ravi DISCHARGE SUMMARY: DATE OF ADMISSION: 03/17/18 DATE OF DISCHARGE: 03/20/18 HISTORY: This 47-year-old man presented with nausea and vomiting. He has a history of gastroparesis diagnosed about a year ago, although his symptoms extended for quite a long time before that. He also has coronary artery disease. He has had bypass grafting and most recently stenting in October 2017. He is followed by Dr. Oswald, his primary observatory director. He has been seen in consultation by Dr. Ravi. This is a repeat admission for the nausea and vomiting. During this hospital stay, he was started on amitriptyline 50 mg at bedtime. He had no side effects from this. I think it is a little early to say if it is of any benefit. He did vomit on 03/19/18 several times. According to his , in an average month, he would probably vomit 15 days in that month having a few episodes of vomit as part of the day. The patient had chest pain on 03/19/18 also. This was this typical chest pain, which he said he gets may be once a month. He usually has to take 3 nitroglycerin to relieve the pain, which is what he did today. I spoke to Dr. Oswald on the phone about management of this cardiology problem. I do not think there is going to be any change. He will follow up with Dr. Oswald. I did transmit prescription for the ondansetron 8 mg size of the ODT tablets to use up to 2 times in a day if needed. If this is not effective, larger doses would likely be well tolerated and possibly more effective. FINAL DIAGNOSES: 1. Gastroparesis. 2. Coronary artery disease. 3. Depression. 4. Diabetes. DISCHARGE MEDICATIONS: 1. Amitriptyline 50 mg h.s. 2. Ondansetron ODT 8 mg b.i.d. p.r.n. 3. Fentanyl patch 50 mcg per hour, change every 72 hours. 4. Nitroglycerin 0.4 mg sublingual every 5 minutes p.r.n. 5. Nitroglycerin 0.4 mg per hour patch p.r.n. 6. Terazosin 2 mg h.s. 7. Ramipril 5 mg h.s. 8. Ezetimibe 10 mg daily. 9. Metformin 500 mg b.i.d. 10. Ticagrelor 90 mg b.i.d. 11. Aspirin 81 mg daily. 12. Pantoprazole 40 mg daily. 13. Omeprazole 20 mg b.i.d. 14. Atorvastatin 80 mg h.s. 15. Ranolazine 1000 mg b.i.d. 16. Metoprolol succinate 25 mg in the morning and 50 mg in the evening. 17. Metoclopramide 10 mg every 6 hours p.r.n. 18. Prochlorperazine 5 mg every 6 hours p.r.n. [id number]/[facility] #: [id number] [facility]
[2018-03-20] MEDS ORDERED: NS 0.9% 1000 ML* 1,000 ML IV SCH (04:30)
[2018-03-20] MEDS: Heparin VIAL(*) 5000 UNITS/ML VIAL (FIVE THOUSAND) SUBCUT SCH (05:30)
[2018-03-20] MEDS: COENZYME Q10 PO SCH (08:42)
[2018-03-20] MEDS: Aspirin EC TAB* 81 MG TAB.EC PO SCH (08:44)
[2018-03-20] MEDS: Ticagrelor* 90 MG TAB PO SCH (08:44)
[2018-03-20] MEDS: Ezetimibe TAB* 10 MG PO SCH (08:44)
[2018-03-20] MEDS: Omeprazole CAP* 20 MG PO SCH (08:44)
[2018-03-20] MEDS: Insulin LISPRO* 1 UNITS UNIT SUBCUT SCH ×2 (08:45→12:17)
[2018-03-20] MEDS: CMCS Ranolazine (NF) 500 MG TAB PO SCH (08:45)
[2018-03-20] MEDS: fentaNYL Patch Check Q Shift 1 NOTE SCH (08:51)
[2018-03-20] MEDS: Metoclopramide IV* 5 MG/ML 2 ML VIAL IV PRN (08:52)
[2018-03-20] MEDS ORDERED: NS 0.9% 1000 ML* 1,000 ML IV ONE (09:34)
[2018-03-20 12:06] VITALS: BP 102/57
== END 2018-03-20 12:50 | disposition home or self-care (01) | DRG 74 ==
LOC: ED 18:36 → MED 21:59 → OBSVTOIN 03-17 10:53
PROVIDERS: ADMIT Hospitalist; ATTEND Internal Medicine
DX: E11.43 Type 2 diabetes mellitus with diabetic autonomic (poly)neuropathy (principal); K31.84 Gastroparesis; I25.10 Atherosclerotic heart disease of native coronary artery without angina pectoris; Z95.1 Presence of aortocoronary bypass graft; Z95.5 Presence of coronary angioplasty implant and graft; R07.9 Chest pain, unspecified; Z79.84 Long term (current) use of oral hypoglycemic drugs; Z79.82 Long term (current) use of aspirin; Z79.01 Long term (current) use of anticoagulants; E11.40 Type 2 diabetes mellitus with diabetic neuropathy, unspecified; E78.5 Hyperlipidemia, unspecified; I10 Essential (primary) hypertension; G89.29 Other chronic pain; K21.9 Gastro-esophageal reflux disease without esophagitis; G47.00 Insomnia, unspecified; Z90.49 Acquired absence of other specified parts of digestive tract; Z88.1 Allergy status to other antibiotic agents; Z91.041 Radiographic dye allergy status; Z91.048 Other nonmedicinal substance allergy status; R33.9 Retention of urine, unspecified; M16.0 Bilateral primary osteoarthritis of hip; M47.9 Spondylosis, unspecified; M54.5 Low back pain; F41.0 Panic disorder [episodic paroxysmal anxiety]; G43.909 Migraine, unspecified, not intractable, without status migrainosus; Z82.49 Family history of ischemic heart disease and other diseases of the circulatory system; Z83.3 Family history of diabetes mellitus; Z87.891 Personal history of nicotine dependence; Z72.89 Other problems related to lifestyle; E86.0 Dehydration; E11.65 Type 2 diabetes mellitus with hyperglycemia
CPT/HCPCS: 36415; 80048; 80053; 82306; 82947; 83690; 83735; 84484; 85025; 93005; 99284; A9270-GY; J0780; J1200; J1630; J1644; J2405; J2765; J3475; J3480; Q0164

== ENCOUNTER 2018-03-20 19:56 | Inpatient (IN) | payer MEDICARE ==
[2018-03-20] MEDS ORDERED: NS 0.9% 1000 ML* 1,000 ML IV ONE (20:01)
[2018-03-20] MEDS ORDERED: diPHENhydraMINE IV* 50 MG/ML 1 ml VIAL (BENADRYL) IV ONE (20:10)
[2018-03-20] MEDS ORDERED: Haloperidol INJ IV/IM* 5 MG/ML AMP IV SLOW PU ONE (20:10)
[2018-03-20] MEDS ORDERED: Metoprolol Tartrate IV* 1 MG/ML 5 ML VIAL IV ONE (20:11)
[2018-03-20 20:27] LABS: ABS Basophils 0 10^3/ul (0-0.2); ABS Eosinophils 0 10^3/ul (0-0.6); ABS Lymphocytes 1.4 10^3/ul (1.0-4.8); ABS Monocytes 0.5 10^3/ul (0-0.8); ABS Neutrophils 7.9 10^3/ul (1.5-7.7); ABS Nucleated RBC 0 10^3/ul; Eosinophil % 0.2 % (0-6); Hematocrit 34 % (42-52); Hemoglobin 11.9 g/dl (14.0-18.0); Lymphocyte % 14.2 % (25-47); Mean Corpuscular HGB Conc 35 g/dl (31-36); Mean Corpuscular Hemoglobin 30 pg (27-31); Mean Corpuscular Volume 85 fL (80-94); Mean Platelet Volume 7.9 um3 (7.4-10.4); Nucleated Red Blood Cells % 0; Platelet Count 193 10^3/ul (150-450); Red Blood Count 3.97 10^6/ul (4.00-5.40); Red Cell Distribution Width 13 % (10.5-15); White Blood Count 9.8 10^3/ul (3.5-10.8)
[2018-03-20 20:33] LABS: INR 0.98 (0.77-1.02)
[2018-03-20 20:57] LABS: EGFR Non-African American 93.7 (>60)
[2018-03-20] MEDS ORDERED: Heparin DRIP 25,000 UNITS(*) 25,000 UNITS/500 ML BAG ONE (21:24)
[2018-03-20] MEDS ORDERED: Heparin VIAL(*) 5000 UNITS/ML VIAL (FIVE THOUSAND) ONE ×2 (21:24→21:28)
--- NOTE | 2018-03-20 21:25 | RAD ---
Indication: Chest pain. Single frontal view of the chest performed at 2055 hours was reviewed. Comparison is made with previous exam dated March 14, 2018. No mediastinal shift is noted. Heart is enlarged. Mild interstitial edema is noted. Patient is status post tracer thoracotomy.. IMPRESSION: THERE APPEARS TO BE SOME MILD INTERSTITIAL EDEMA. POSTOPERATIVE CHANGES ARE NOTED.
[2018-03-20] MEDS: Heparin DRIP 25,000 UNITS(*) 25,000 UNITS/500 ML BAG IV SCH (21:41)
[2018-03-20] MEDS ORDERED: Heparin VIAL(*) 5000 UNITS/ML VIAL (FIVE THOUSAND) IV PRN (21:53)
[2018-03-20] MEDS ORDERED: Heparin VIAL(*) 5000 UNITS/ML VIAL (FIVE THOUSAND) IV SCH (22:00)
--- NOTE | 2018-03-20 22:09 | ED ---
Eulogio Flanagan Tariq, scribed for Mychal Solano MD on 03/20/18 at 2017 . HPI Chest Pain - HPI Summary HPI Summary: A 47 y/o male MCKINLEY presents to ED c/o chest pain. Additionally c/o emesis. Overall, the patient does not feel good. The pt called the ambulance because of the chest pain. According to the pt, the pain started around 1530. Pt stated that the CP is higher than where it normally is. Additionally, he noted that the pain has not gotten any better. As per family, his blood pressure was low. Pt was admitted previously, then D/C. The next day, the pt returned and was D/C today. He returned the same day today. He has not been out of the hospital for a full week. PMHx of stents. Currently on blood thinners. Was given 4 NTG via EMS. - History of Current Complaint Chief Complaint: EDChestPainROMI Time Seen by Provider: 03/20/18 19:58 Hx Obtained From: Patient Onset/Duration: Started Days Ago, Still Present, Worse Since Timing: Constant, Lasting Days Initial Severity: Severe Current Severity: Severe Pain Intensity: 8 Pain Scale Used: 0-10 Numeric Chest Pain Location: Mid Sternal Chest Pain Radiates: No Character: Other: - Emesis Aggravating Factor(s): Nothing Alleviating Factor(s): Nothing Associated Signs and Symptoms: Positive: Chest Pain, Vomiting - Additional Pertinent History Primary Care Physician: RADHAMES - Allergy/Home Medications Allergies/Adverse Reactions: Allergies Allergy/AdvReac Type Severity Reaction Status Date / Time cat dander Allergy Eyes Verified 03/09/18 10:45 Itchy/Swollen/Red/Watery erythromycin base Allergy Nausea And Verified 03/09/18 10:45 [From Erythrocin] Vomiting oral contrast dye AdvReac Severe Vomiting Uncoded 03/14/18 13:36 PMH/Surg Hx/FS Hx/Imm Hx Endocrine/Hematology History: Reports: Hx Diabetes - TYPE 2 Denies: Hx Thyroid Disease Cardiovascular History: Reports: Hx Angina, Hx Coronary Artery Disease, Hx Hypercholesterolemia, Hx Hypertension - CONTROLLED WITH MEDS, Hx Myocardial Infarction, Other Cardiovascular Problems/Disorders - CARDIAC STENTS. CABG. HLD Denies: Hx Congestive Heart Failure, Hx Pacemaker/ICD, Hx Valvular Heart Disease Respiratory History: Denies: Hx Asthma, Hx Chronic Obstructive Pulmonary Disease (COPD) GI History: Reports: Hx Gall Bladder Disease - Removed. 05/04/17, Hx Gastroesophageal Reflux Disease - GASTROPARESIS, Other GI Disorders - GALLSTONES Denies: Hx Ulcer History: Denies: Hx Dialysis, Hx Renal Disease Musculoskeletal History: Reports: Hx Arthritis - hips and back, Hx Back Problems , Hx Bursitis - SHOULDERS, Other Musculoskeletal History - Degenerative joint disease, chronic lower back pain. hx OF OSTEOMYLITIS Sensory History: Reports: Hx Contacts or Glasses Denies: Hx Hearing Aid Comment Only: Other Sensory Impairments - doesn't have glasses with him Opthamlomology History: Reports: Hx Contacts or Glasses Comment Only: Other Sensory Impairments - doesn't have glasses with him Neurological History: Reports: Hx Migraine - OCCASSIONALY PER PT REPORT 1-2x per year, Other Neuro Impairments/Disorders - young's palsy, PAIN CLINIC PATIENT Psychiatric History: Reports: Hx Anxiety, Hx Depression, Hx Panic Disorder - does ok with mri foot, Hx Bipolar Disorder - Cancer History Hx Chemotherapy: No - Surgical History Surgery Procedure, Year, and Place: 2009 triple heart bypass;. 2008 cardiac cath no stents;. CARDIAC CATH 2 stents placed March 2014 at [facility] [place]. GALLBLADDER Apr; Hx Anesthesia Reactions: No - Immunization History Date of Tetanus Vaccine: utd Date of Influenza Vaccine: utd Infectious Disease History: No Infectious Disease History: Reports: History Other Infectious Disease - spinal meningitis Denies: Hx Clostridium Difficile, Hx Hepatitis, Hx Human Immunodeficiency Virus (HIV), Hx of Known/Suspected MRSA, Hx Shingles, Hx Tuberculosis, Hx Known/ Suspected VRE, Hx Known/Suspected VRSA, Traveled Outside the [place] in Last 30 Days - Family History Known Family History: Positive: Cardiac Disease - [place] - mother & father, Hypertension, Diabetes - Social History Alcohol Use: Weekly Alcohol Amount: 1-2 beers per week Hx Substance Use: Yes Substance Use Type: Reports: Marijuana, Prescribed Substance Use Comment - Amount & Last Used: 3x daily Hx Tobacco Use: Yes Smoking Status (MU): Former Smoker Type: Smokeless Tobacco Amount Used/How Often: Chews one tin per week Length of Time of Smoking/Using Tobacco: 4 years Have You Smoked in the Last Year: No Review of Systems Negative: Fever Positive: Chest Pain Positive: Vomiting All Other Systems Reviewed And Are Negative: Yes Physical Exam - Summary Physical Exam Summary: Appearance: Well appearing, no pain distress. Phenol patch on right chest (50 mg ). NTG patch on left chest. Skin: warm, dry, reflects adequate perfusion. Sternotomy scar mid chest Head/face: normal Eyes: EOMI, JEROME ENT: normal Neck: supple, non-tender Respiratory: CTA, breath sounds present Cardiovascular: RRR, pulses symmetrical Abdomen: Guards abdomen diffusely. Some rigidity. Diffuse abdominal tenderness Bowel Sounds: present. Bilious emesis. Musculoskeletal: normal, strength/ROM intact Neuro: normal, sensory motor intact, A&Ox3 Triage Information Reviewed: Yes Vital Signs On Initial Exam: Initial Vitals Temp Pulse Resp BP Pulse Ox 97.8 F 99 18 140/88 96 03/20/18 20:00 03/20/18 20:00 03/20/18 20:00 03/20/18 20:00 03/20/18 20:00 Vital Signs Reviewed: Yes Diagnostics - Vital Signs Vital Signs Temp Pulse Resp BP Pulse Ox 03/20/18 20:00 97.8 F 99 18 140/88 96 - Laboratory Lab Results: Lab Results 03/20/18 03/20/18 03/20/18 Range/Units 20:16 20:16 20:16 WBC 9.8 (3.5-10.8) 10^3/ul RBC 3.97 L (4.00-5.40) 10^6/ul Hgb 11.9 L (14.0-18.0) g/dl Hct 34 L (42-52) % MCV 85 (80-94) fL MCH 30 (27-31) pg MCHC 35 (31-36) g/dl RDW 13 (10.5-15) % Plt Count 193 (150-450) 10^3/ul MPV 7.9 (7.4-10.4) um3 Neut % (Auto) 80.7 (38-83) % Lymph % (Auto) 14.2 L (25-47) % [place] % (Auto) 4.7 (0-7) % Eos % (Auto) 0.2 (0-6) % Baso % (Auto) 0.2 (0-2) % Absolute Neuts (auto) 7.9 H (1.5-7.7) 10^3/ul Absolute Lymphs (auto) 1.4 (1.0-4.8) 10^3/ul Absolute Monos (auto) 0.5 (0-0.8) 10^3/ul Absolute Eos (auto) 0 (0-0.6) 10^3/ul Absolute Basos (auto) 0 (0-0.2) 10^3/ul Absolute Nucleated RBC 0 10^3/ul Nucleated RBC % 0 INR (Anticoag Therapy) 0.98 (0.77-1.02) APTT 31.4 (26.0-36.3) seconds Sodium 136 (135-145) mmol/L Potassium 3.6 (3.5-5.0) mmol/L Chloride 104 (101-111) mmol/L Carbon Dioxide 20 L (22-32) mmol/L Anion Gap 12 H (2-11) mmol/L BUN 10 (6-24) mg/dL Creatinine 0.87 (0.67-1.17) mg/dL Est GFR ( Amer) 113.3 (>60) Est GFR (Non-Af Amer) 93.7 (>60) BUN/Creatinine Ratio 11.5 (8-20) Glucose 226 H (70-100) mg/dL Lactic Acid (0.5-2.0) mmol/L Calcium 8.7 (8.6-10.3) mg/dL Magnesium 1.9 (1.9-2.7) mg/dL Total Bilirubin 0.80 (0.2-1.0) mg/dL AST 12 L (13-39) U/L ALT 11 (7-52) U/L Alkaline Phosphatase 55 (34-104) U/L Troponin I 0.15 H* (<0.04) ng/mL Total Protein 6.1 L (6.4-8.9) g/dL Albumin 3.8 (3.2-5.2) g/dL Globulin 2.3 (2-4) g/dL Albumin/Globulin Ratio 1.7 (1-3) Lipase < 10 L (11.0-82.0) U/L 03/20/18 Range/Units 20:16 WBC (3.5-10.8) 10^3/ul RBC (4.00-5.40) 10^6/ul Hgb (14.0-18.0) g/dl Hct (42-52) % MCV (80-94) fL MCH (27-31) pg MCHC (31-36) g/dl RDW (10.5-15) % Plt Count (150-450) 10^3/ul MPV (7.4-10.4) um3 Neut % (Auto) (38-83) % Lymph % (Auto) (25-47) % [place] % (Auto) (0-7) % Eos % (Auto) (0-6) % Baso % (Auto) (0-2) % Absolute Neuts (auto) (1.5-7.7) 10^3/ul Absolute Lymphs (auto) (1.0-4.8) 10^3/ul Absolute Monos (auto) (0-0.8) 10^3/ul Absolute Eos (auto) (0-0.6) 10^3/ul Absolute Basos (auto) (0-0.2) 10^3/ul Absolute Nucleated RBC 10^3/ul Nucleated RBC % INR (Anticoag Therapy) (0.77-1.02) APTT (26.0-36.3) seconds Sodium (135-145) mmol/L Potassium (3.5-5.0) mmol/L Chloride (101-111) mmol/L Carbon Dioxide (22-32) mmol/L Anion Gap (2-11) mmol/L BUN (6-24) mg/dL Creatinine (0.67-1.17) mg/dL Est GFR ( Amer) (>60) Est GFR (Non-Af Amer) (>60) BUN/Creatinine Ratio (8-20) Glucose (70-100) mg/dL Lactic Acid 1.0 (0.5-2.0) mmol/L Calcium (8.6-10.3) mg/dL Magnesium (1.9-2.7) mg/dL Total Bilirubin (0.2-1.0) mg/dL AST (13-39) U/L ALT (7-52) U/L Alkaline Phosphatase (34-104) U/L Troponin I (<0.04) ng/mL Total Protein (6.4-8.9) g/dL Albumin (3.2-5.2) g/dL Globulin (2-4) g/dL Albumin/Globulin Ratio (1-3) Lipase (11.0-82.0) U/L Result Diagrams: 03/20/18 20:16 03/20/18 20:16 Lab Statement: Any lab studies that have been ordered have been reviewed, and results considered in the medical decision making process. - Radiology CXR Radiology Interpretation Completed By: Radiologist - THERE APPEARS TO BE SOME MILD INTERSTITIAL EDEMA. POSTOPERATIVE CHANGES ARE NOTED. ED PHYSICIAN REVIEWED THIS RADIOLOGY REPORT. - EKG 1956 Cardiac Rate: NL - 96 BPM EKG Rhythm: Sinus Rhythm ST Segment: Non-Specific EKG Interpretation: LVH criteria. Normal axis. No change from previous EKG. Re-Evaluation - Re-Evaluation First Eval Re-Evaluation Time: 21:08 Change: Improved Comment: CHEST PAIN IS BETTER Chest Pain Course/Dx - Course Course Of Treatment: Patient presenting with exacerbation of his gastroparesis with epigastric pain, vomiting as well as substernal chest pain and that is nonradiating. EKG is nondiagnostic and not significantly changed from previous. Patient received aspirin, nitroglycerin prior to arrival by EMS. He is wearing a nitroglycerin patch. He was given beta brenden, Haldol, Benadryl on arrival with significant relief of his symptoms. His heart rate came down and his chest pain resolved. His troponin returned elevated at 0.15. Hospitalist was contacted and the patient will be admitted to the telemetry service. He is started on IV heparin protocol. He does have a history of cardiac bypass and is maintained on Brilinta. Admit for further. - Chest Pain Differential Diagnosis/HQI/PQRI: Acute VT, Angina, GI Disease, Lower Respiratory Infection - Diagnoses Provider Diagnoses: Cyclic vomiting syndrome, Non-STEMI (non-ST elevated myocardial infarction), Chest pain - Critical Care Time Critical Care Time: 30-74 min - 30 minutes. CCT is EXCLUSIVE of separately billable procedures. Discharge - Sign-Out/Discharge Documenting (check all that apply): Discharge/Admit/Transfer - ADMIT - Discharge Plan Condition: Stable Disposition: ADMITTED TO [facility] Patient Education Materials: Chest Pain (ED), Cyclic Vomiting Syndrome (ED) Referrals: Nicky DIXON,Tito Castillo [Primary Care Provider] - - Billing Disposition and Condition Condition: STABLE Disposition: Admitted to [facility] The documentation as recorded by the Eulogio shore Tariq accurately reflects the service I personally performed and the decisions made by me, Mychal Solano MD.
[2018-03-20] MEDS ORDERED: Al Hydrox/Mg Hydrox/Simet LIQ* 30 ML UDC PO PRN (22:29)
[2018-03-20] MEDS ORDERED: Ondansetron INJ* 2 MG/ML VIAL IV PRN (22:29)
[2018-03-20] MEDS ORDERED: Metoclopramide TAB* 10 MG PO PRN (22:40)
[2018-03-20] MEDS ORDERED: Prochlorperazine TAB* 5 MG PO PRN (22:40)
[2018-03-20] MEDS ORDERED: nitroGLYCERIN DRIP* 25,000 MCG/250 ML BTL ONE (22:50)
[2018-03-20] MEDS ORDERED: Dextrose 50% Syringe 50 ML* 25 GM/50 ML SYRINGE IV PUSH PRN (23:00)
[2018-03-20] MEDS ORDERED: Prochlorperazine TAB* 10 MG ONE (23:20)
[2018-03-20] MEDS ORDERED: Ondansetron ODT TAB* 4 MG PO PRN (23:25)
[2018-03-21] MEDS: Atorvastatin* 80 MG TAB PO SCH ×2 (00:34→17:40)
[2018-03-21] MEDS: Insulin LISPRO* 1 UNITS UNIT SUBCUT SCH ×4 (00:40→17:49)
[2018-03-21] MEDS: Metoclopramide IV* 5 MG/ML 2 ML VIAL IV SLOW PU SCH ×4 (00:41→19:05)
[2018-03-21] MEDS: nitroGLYCERIN DRIP* 25,000 MCG/250 ML BTL IV SCH ×6 (00:44→19:05)
[2018-03-21] MEDS: NS 0.9% 1000 ML* 1,000 ML IV SCH ×2 (00:44→12:01)
[2018-03-21] MEDS: Morphine VIAL* 4 MG/ML VIAL (1 ml vial) IV PRN ×2 (01:14→05:11)
[2018-03-21] MEDS: fentaNYL PATCH 50 MCG/HR TRANSDERM SCH (01:26)
[2018-03-21] MEDS: Ondansetron INJ* 2 MG/ML VIAL IV PRN (01:36)
--- NOTE | 2018-03-21 02:41 | HP ---
CC: Dr. Oswald; Dr. Saunders * HISTORY AND PHYSICAL: DATE OF ADMISSION: 03/20/18 PROVIDER: Thea Mendoza NP. PRIMARY CARE PROVIDER: Dr. Saunders. ATTENDING PHYSICIAN WHILE IN THE HOSPITAL: Dr. Severino Moralez * (dictated by Thea Mendoza NP). CHIEF COMPLAINT: Chest pain. HISTORY OF PRESENT ILLNESS: Mr. Kaye is a 47-year-old gentleman, who is well known to us from a prior admission just 24 hours ago, who has a past medical history significant for cyclic vomiting syndrome, gastroparesis, uncontrolled diabetes as well as coronary artery disease for which he had CABG and PCI done. Most recent cardiac catheterization was in October of 2017, where he received a stent. He returned to the emergency room this evening complaining of sudden onset of midsternal sharp chest pain that awoke him from sleep at approximately 2 p.m. today. The patient states that the chest pain radiates to his neck. He states that he felt like somebody hit him in the chest with a hammer. He did take nitro sublingual x5 at home with no relief. He did place a nitro patch on as well, again with no relief. He did have some associated shortness of breath with the chest pain. The patient does report that after the nitro his chest pain did become worse. He does report that nothing makes it better, nothing makes it worse. On arrival to the emergency room, the patient states that he was nauseated and did vomit x1. He does report that the pain is similar to his previous episodes of chest pain for when he needed Interventional Cardiology and had cardiac catheterization. The patient currently rates his chest pain at level 6 on a scale of 0 to 10. He currently states that the pain radiates to his neck as well as mid sternal chest. He has associated nausea with the chest pain. He does report that his symptoms are similar to his episodes of chest pain in the past. While in the emergency room, the patient had routine lab work drawn. His initial troponin was elevated at 0.15. Yesterday, his troponin was 0.01. Given his significant history of coronary artery disease with bypass surgery and stenting and his elevated troponin, we were asked to see and evaluate him for admission. PAST MEDICAL HISTORY: Unchanged from last visit and significant for: 1. Gastroparesis. 2. Cyclic vomiting. 3. Diabetes type 2. 4. Neuropathy. 5. Hyperlipidemia. 6. Coronary artery disease. 7. Hypertension. 8. Chronic pain. 9. GERD with history of gastritis and GI bleed. 10. Depression. 11. Insomnia. PAST SURGICAL HISTORY: Significant for 1. CABG in 2008. 2. Cholecystectomy in 2016. 3. Recent cardiac catheterization in October of 2017. MEDICATIONS: Current medications: 1. Aspirin 81 mg p.o. daily. 2. Lipitor 80 mg p.o. q.p.m. 3. Zetia 10 mg p.o. daily. 4. Fentanyl patch 50 mcg q. 72 hours. 5. Metformin 500 mg p.o. b.i.d. 6. Reglan 10 mg p.o. q.6 hours as needed for nausea. 7. Metoprolol 25 mg p.o. daily. 8. Metoprolol 50 mg p.o. q.h.s. 9. Nitroglycerin 0.4 mg patch transdermal as needed as well as nitro 0.4 mg sublingual q.5 minutes as needed for angina. 10. Omeprazole 20 mg p.o. b.i.d. 11. Zofran 8 mg p.o. b.i.d. p.r.n. nausea. 12. Protonix 40 mg p.o. q.p.m. 13. Compazine 5 mg q.6 hours as needed for nausea. 14. Altace 5 mg p.o. q.p.m. 15. Ranexa 1000 mg p.o. b.i.d. 16. Terazosin 2 mg p.o. q.p.m. 17. Brilinta 90 mg p.o. b.i.d. 18. Amitriptyline 50 mg p.o. at bedtime. ALLERGIES: Include CAT DANDER, ERYTHROMYCIN, and ORAL CONTRAST DYE. FAMILY HISTORY: Mother and father both with history of CHF. Father with an MO at age 55, mother and father both with history of diabetes, grandfather with history of esophageal cancer. SOCIAL HISTORY: The patient reports that he quit smoking approximately 25 years ago. Denies any alcohol. He does report the use of marijuana. He is . His surrogate decision maker in the event he is unable to make his own decisions is his , Sheldon. Her number is [phone]. REVIEW OF SYSTEMS: There was no documented fever. No loss of appetite. The patient does report chest pain, midsternal, rated at 6 at the time of evaluation. It is sharp in nature. No edema. Denies any cough, hemoptysis or shortness of breath. He does report some nausea and vomiting. Denies any diarrhea or abdominal pain. Denies any gross hematuria or dysuria. No focal weakness or sensory loss. Denies any visual complaints or difficulty swallowing. Denies any arthralgias or myalgias, rashes or lesions. He does not report any depression or anxiety. PHYSICAL EXAMINATION GENERAL: Mr. Kaye is a 47-year-old male. He appears mildly distressed, resting on the stretcher in the emergency room. His color is pale. VITAL SIGNS: Blood pressure 146/96, heart rate is 88, respirations are 10, O2 saturation 99%, temperature was 97.8 on admission. HEENT: Head is normocephalic, atraumatic. Sclerae anicteric and not pale. Pupils are equal and reactive to light. EOMs are intact. NECK: Supple. Trachea is midline. There is no JVD. LUNGS: Clear to auscultation bilaterally. There are no wheezes, rales, or rhonchi. HEART: Regular rate and rhythm. Normal S1, S2 without rubs or gallops. ABDOMEN: Soft, is tender to palpation, nondistended. Bowel sounds are present x4. EXTREMITIES: There is no clubbing or cyanosis. There is no edema. NEUROLOGIC: The patient is alert and oriented x3. Speech is soft but clear. There are no gross neurofocal deficits. LABORATORY DATA AND DIAGNOSTIC STUDIES: WBCs were 9.8, RBCs 3.97, hemoglobin was 11.9, hematocrit was 34, platelet count was 193. INR was 0.98. APTT was 31.4. Sodium 136, potassium of 3.6, chloride was 104, carbon dioxide was 20, anion gap was 12, BUN was 10, creatinine was 0.87. Lactic acid was 1.0. Calcium 8.7, magnesium was 1.9. ASTs were 12. Troponin was 0.15. Lipase was less than 10. Chest x-ray, radiologist's impression: There appears to be some mild interstitial edema, postoperative changes are noted. EKG, sinus rhythm at a rate of 96. ASSESSMENT AND PLAN: Mr. Kaye is a 47-year-old gentleman, who presented to the emergency room today with sudden complaints of substernal chest pain radiating to his neck. He was found to have positive troponin due to chest pain and significant coronary artery disease. We were asked to see and evaluate him for admission. He will be admitted to the ICU for: 1. Chest pain, [id number] myocardial infarction. He will be placed in ICU. He will be placed on the monitor. We will continue to trend his troponins until peak. He will be placed on a heparin drip. I will also start a nitro drip on him as he continues to have chest pain rated at 6 on a scale of 10. We will titrate the drip to chest pain free. I will continue aspirin. He will be continued on his beta-brenden. He did receive Lopressor 5 mg IV in the emergency room. I will also order morphine as needed for pain. He will continue his atorvastatin. I did make him n.p.o. I did also consult Cardiology , Dr. Oswald. 2. Diabetes type 2. We will continue metformin and we will place him on Accu- Cheks a.c. and h.s. We will place him on lispro sliding scale. 3. Hypertension. He will continue on his metoprolol. 4. Hyperlipidemia. We will continue his Zetia and atorvastatin. 5. Gastroparesis. I will continue on Reglan and Zofran as needed for nausea and vomiting as well as Compazine. 6. DVT prophylaxis. He was placed on heparin drip. 7. Code status. He is a full code. TIME SPENT: Time spent on this admission were approximately 60 minutes, greater than half that time was spent with the patient and his obtaining the history and physical and performing my physical exam, the other half the time was spent going over my plan of care and implementing my plan of care. I discussed this with my attending, Dr. Severino Moralez, he is in agreement with my plan. THEA SEEMA, TEST CONSULTANT [id number]/[facility] #: [id number] HENRY
[2018-03-21] MEDS ORDERED: LORazepam INJ* 2 MG/ML 1 ML VIAL IV PUSH ONE (04:57)
[2018-03-21] MEDS ORDERED: LORazepam INJ* 2 MG/ML 1 ML VIAL ONE (05:02)
[2018-03-21] MEDS: PROCHLORPERAZINE INJ 5 MG/ML 2 ML VIAL IV PRN ×2 (05:45→13:52)
[2018-03-21 06:20] LABS: ABS Basophils 0 10^3/ul (0-0.2); ABS Eosinophils 0 10^3/ul (0-0.6); ABS Lymphocytes 1.8 10^3/ul (1.0-4.8); ABS Monocytes 0.7 10^3/ul (0-0.8); ABS Neutrophils 6.5 10^3/ul (1.5-7.7); ABS Nucleated RBC 0 10^3/ul; Eosinophil % 0.3 % (0-6); Hematocrit 29 % (42-52); Hemoglobin 10.4 g/dl (14.0-18.0); Lymphocyte % 19.8 % (25-47); Mean Corpuscular HGB Conc 36 g/dl (31-36); Mean Corpuscular Hemoglobin 30 pg (27-31); Mean Corpuscular Volume 84 fL (80-94); Nucleated Red Blood Cells % 0; Platelet Count 184 10^3/ul (150-450); Red Blood Count 3.47 10^6/ul (4.00-5.40); Red Cell Distribution Width 13 % (10.5-15)
[2018-03-21] MEDS: fentaNYL Patch Check Q Shift 1 NOTE SCH ×2 (07:01→18:44)
[2018-03-21 07:12] LABS: EGFR Non-African American 114.7 (>60)
--- NOTE | 2018-03-21 07:57 | PN ---
Subjective Date of Service: 03/21/18 Interval History: Mr. Kaye is currently chest pain free. He denies nausea or vomiting. He confirms that he felt very well throughout the morning yesterday and at the time of discharge. He took a nap on returning home and was awoken with sharp chest pain, like being kicked in the chest. Objective Active Medications: Al Hydrox/Mg Hydrox/Simethicone (Maalox Plus*) 30 ml PO Q6H PRN Amitriptyline HCl (Elavil Tab*) 50 mg PO BEDTIME EVELIN Aspirin (Aspirin Ec Tab*) 81 mg PO QAM EVELIN Atorvastatin Calcium (Lipitor*) 80 mg PO QPM EVELIN Dextrose (D50w Syringe 50 Ml*) 12.5 gm IV PUSH .FOR FS < 60 - SS PRN Ezetimibe (Zetia Tab*) 10 mg PO QAM EVELIN Fentanyl (Duragesic Patch 50 Mcg/Hr*) 50 mcg TRANSDERM Q72H EVELIN Heparin Sodium (Porcine) (Heparin Vial(*)) 4,000 units IV ED ONCE EVELIN Heparin Sodium (Porcine) (Heparin Vial(*)) 0 units IV .BOLUS PRN Heparin Sodium/Dextrose (Heparin Drip 25,000 Units(*)) 25,000 units in 500 mls @ 0 mls/hr IV PER RATE EVELIN; Protocol Nitroglycerin/Dextrose (Nitroglycerin Drip*) 25,000 mcg in 250 mls @ 6 mls/hr IV .(Initial Rate) EVELIN; Protocol Sodium Chloride (Ns 0.9% 1000 Ml*) 1,000 mls @ 75 mls/hr IV PER RATE [facility] Insulin Human Lispro (Humalog*) 0 units SUBCUT Q6HR EVELIN; Protocol Metformin HCl (Glucophage*) 500 mg PO BID EVELIN Metoclopramide HCl (Reglan Iv*) 10 mg IV SLOW PU Q6H EVELIN Metoprolol Succinate (Toprol Xl Tab*) 25 mg PO QAM [facility] Metoprolol Succinate (Toprol Xl Tab*) 50 mg PO QPM EVELIN Morphine Sulfate (Morphine Vial*) 2 mg IV Q4H PRN Omeprazole (Prilosec Cap*) 20 mg PO BID AC EVELIN Ondansetron HCl (Zofran Inj*) 8 mg IV Q8H PRN Pharmacy Profile Note (Fentanyl Patch Check Q Shift) 1 note N/A 0700,1900 [facility] Prochlorperazine Edisylate (Compazine Inj*) 5 mg IV Q6H PRN Ramipril (Altace Cap*) 5 mg PO QPM [facility] Ranolazine (Ranexa (Nf)) 1,000 mg PO BID [facility]; Protocol Terazosin HCl (Hytrin Cap*) 2 mg PO QPM [facility] Ticagrelor (Brilinta*) 90 mg PO BID [facility] Vital Signs: Temp Pulse Resp BP Pulse Ox 98.7 F 83 18 119/72 98 03/21/18 07:43 03/21/18 06:00 03/21/18 06:28 03/21/18 06:00 03/21/18 06:00 Oxygen Devices in Use Now: Nasal Cannula Appearance: Male lying in bed in NAD Eyes: No Scleral Icterus Ears/Nose/Mouth/Throat: Mucous Membranes Moist Neck: Trachea Midline Respiratory: Symmetrical Chest Expansion and Respiratory Effort, Clear to Auscultation Cardiovascular: No Edema Abdominal: NL Sounds; No Tenderness; No Distention Lymphatic: No Cervical Adenopathy Extremities: No Edema Skin: No Rash or Ulcers Neurological: Alert and Oriented x 3, NL Muscle Strength and Tone Result Diagrams: 03/21/18 06:08 03/21/18 06:08 Additional Lab and Data: . Microbiology and Other Data: . Assess/Plan/Problems-Billing Assessment: Mr. Kaye is a 47 yo M with a PMH of CABG, DM, and chronic nausea and vomiting associated with gastroparesis and cyclical vomiting syndrome who was re -admitted on 03/20/18 after being discharged earlier that day with chest pain found to have NSTEMI. - Patient Problems (1) NSTEMI (non-ST elevated myocardial infarction) Comment: - Currently chest pain free. Trop at 3.24. EKG without significant change. - Consultation from Dr. Oswald pending. Last cardiac cath 10/2017, stent placed to circumflex. Has history of CABG x 3 in 2008, stent to circumflex in 2014. - Continue heparin gtt, nitro gtt, aspirin, atorvastatin, metoprolol, oxygen. (2) Hypertension Comment: - BP controlled. - Continue metoprolol, ramipril. (3) Diabetes mellitus type 2, controlled, with complications Comment: - Continue lispro SSI coverage with meals. Hold metformin. - HgA1C 9.3 01/27/18. - Pt plans to be a new patient of Dr. Brenner office. (4) Dyslipidemia Comment: - Continue atorvastatin and zetia. (5) Depression Comment: - Patient reports depression. Continue amitriptyline. Pt encouraged to discuss with his PCP and consider counseling. (6) Chronic pain Comment: - Follows with the pain clinic. - Continue Fentanyl patch and oxycodone prn. (7) Gastroparesis Comment: - Denies nausea, vomiting, or abdominal pain this AM. - Continue amitriptyline and metoclopramide. (8) DVT prophylaxis Comment: - SCDs and Heparin gtt. (9) Full code status Comment: Status and Disposition: Inpatient. Anticipate discharge to home when medically stable.
[2018-03-21] MEDS: Omeprazole CAP* 20 MG PO SCH ×2 (08:14→17:40)
[2018-03-21] MEDS: Aspirin EC TAB* 81 MG TAB.EC PO SCH (08:14)
[2018-03-21] MEDS: Ticagrelor* 90 MG TAB PO SCH ×2 (08:14→21:30)
[2018-03-21] MEDS: Metoprolol Succinate XL TAB* 25 MG PO SCH (08:14)
[2018-03-21] MEDS: CMCS:Ranolazine (NF) 500 MG TAB PO SCH ×2 (08:14→21:31)
[2018-03-21] MEDS: Ezetimibe TAB* 10 MG PO SCH (08:14)
[2018-03-21] MEDS ORDERED: metFORMIN* 500 MG TAB PO SCH (09:00)
[2018-03-21] MEDS: Acetaminophen TAB* 325 MG PO PRN ×2 (10:46→21:32)
--- NOTE | 2018-03-21 14:35 | CONS ---
CARDIOLOGY CONSULTATION: DATE OF CONSULT: 03/21/18 INDICATION FOR CONSULTATION: Coronary artery disease, elevated troponin level. HISTORY OF PRESENT ILLNESS: The patient is a 47-year-old gentleman with a known severe coronary komal ry disease, severe gastroparesis, severe diabetic neuropathy who was readmitted to the hospital with chest pain. The patient was just in the hospital 2 days ago with severe nausea and vomiting consiste nt with his gastroparesis. At that time, he was having some mild chest pain. His EKG was unremarkab le. His troponins were unremarkable. He was discharged home last night. When he got, he got somet enoc to eat. He slept a little bit and then woke up and was walking around the house and got crushin g chest pain. He described it as 8/10 chest pain. He got diaphoretic with this and came back to the emergency room. On arrival to the emergency room, his EKG showed no obvious ischemic EKG changes; h owever, his initial troponin was elevated, his second troponin went up to 1.38, third troponin 3.08. The patient was having on and off chest pain overnight. He was admitted to the hospital and was plac ed on heparin and nitroglycerin drip. This morning, the patient is essentially pain free. PAST MEDICAL HISTORY: Significant for coronary artery disease. He had three- vessel bypass in 2008. Cardiac catheterization in 2009 showed that his saphenous vein graft to his OM1 was occluded, saphe nous vein graft to the right was occluded, BARR to the LAD was open and patent. Since then, the lilibeth ent has had 3 stents to his left circumflex artery; his most recent being in October of 2017. At th at time, he had a stent to his proximal and mid left circumflex artery. Hypertension, diabetes, hype rlipidemia. PAST SURGICAL HISTORY: Coronary artery bypass surgery, wisdom teeth extraction, cholecystectomy. OUTPATIENT MEDICATIONS: 1. Fentanyl patch 50 mcg every 72 hours. 2. Nitroglycerin p.r.n. 3. Nitroglycerin patch. 4. Terazosin 2 mg a day. 5. Ramipril 5 mg a day. 6. Zetia 10 mg a day. 7. Metformin 500 mg b.i.d. 8. Brilinta 90 mg b.i.d. 9. Aspirin 81 mg a day. 10. Pantoprazole 40 mg a day. 11. Omeprazole 20 mg b.i.d. 12. Lipitor 80 mg a day. 13. Metoprolol succinate 50 mg q.h.s., 25 mg in the morning. 14. Metoclopramide 10 mg q.8 hours as needed. 15. Amitriptyline 50 mg q.h.s. 16. Zofran 8 mg b.i.d. p.r.n. ALLERGIES: He is intolerant to ERYTHROMYCIN. FAMILY HISTORY: Reviewed from previous consultations. SOCIAL HISTORY: He is . He is currently not working because of his coronary artery disease a nd gastroparesis. He denied tobacco or alcohol use. REVIEW OF SYSTEMS: Negative for fevers or chills. Negative for changes in bowel or bladder habits. PHYSICAL EXAMINATION: Height is 5 feet 10 inches, weight is 194 pounds, temperature 99.4, heart rate is 91, blood pressure 114/81, respiratory rate is 20, oxygen saturation 97% on room air. Sclerae an icteric. Oropharynx is pink without erythema. Carotids are 2+ without bruits. JVD is normal. Thyr oid is normal. Cardiac Exam: Distant heart sounds. S1, S2 without any murmurs, rubs or gallops. Reg gs are clear to auscultation bilaterally. There is no dullness to percussion. Abdomen is mildly tend er in the epigastric area. He has decreased bowel sounds. No hepatosplenomegaly. Extremities show n o edema. He has diminished pulses in his dorsalis pedis and popliteal. Upper extremity pulses are n ormal. The patient is awake and alert and oriented. He moves all 4 extremities equally. DIAGNOSTIC STUDIES/LAB DATA: EKG demonstrates normal sinus rhythm, old anterior wall myocardial infa rction with LVH. CBC, white count 9, hemoglobin 10, hematocrit 29, platelet count 184. Chemistry is within normal limits, BUN 7, creatinine 0.7. AST and ALT are normal. IMPRESSION: This is a 47-year-old gentleman with severe coronary artery disease secondary to his daniel betes. He has a history of gastroparesis who was admitted to the hospital with chest pain. The lilibeth ent does have an elevated troponin level to 3.24. He has no obvious ischemic EKG changes on his EKG. The patient is already on heparin and nitroglycerin IV. The patient is on appropriate medications as an outpatient. He is on maximal medical therapy. PLAN/RECOMMENDATIONS: It is my recommendation that the patient undergo cardiac catheterization. The patient understands the risks and benefits of this and is willing to proceed. [id number]/[facility] #: [id number]
[2018-03-21] MEDS ORDERED: Metoprolol Succinate XL TAB* 50 MG PO SCH (18:00)
[2018-03-21] MEDS ORDERED: Pantoprazole TAB (NF) 40 MG TAB PO SCH (18:00)
[2018-03-21] MEDS ORDERED: Terazosin CAP* 1 MG PO SCH (18:00)
[2018-03-21] MEDS ORDERED: Ramipril CAP* 5 MG PO SCH (18:00)
[2018-03-21] MEDS: Amitriptyline TAB* 50 MG PO SCH (21:30)
[2018-03-21] MEDS: Terazosin CAP* 1 MG PO SCH (21:30)
[2018-03-21] MEDS: Ramipril CAP* 5 MG PO SCH (21:31)
[2018-03-21] MEDS: Metoprolol Succinate XL TAB* 50 MG PO SCH (21:31)
[2018-03-22] MEDS: NS 0.9% 1000 ML* 1,000 ML IV SCH ×2 (01:09→15:06)
[2018-03-22] MEDS: Metoclopramide IV* 5 MG/ML 2 ML VIAL IV SLOW PU SCH ×4 (01:10→19:47)
[2018-03-22] MEDS: Heparin DRIP 25,000 UNITS(*) 25,000 UNITS/500 ML BAG IV SCH (02:17)
[2018-03-22] MEDS: fentaNYL Patch Check Q Shift 1 NOTE SCH ×2 (07:00→19:21)
--- NOTE | 2018-03-22 07:32 | PN ---
Subjective Date of Service: 03/22/18 Interval History: Mr. Kaye reports feeling quite well today. He denies chest pain, SOB, nausea, or abdominal pain. He wishes he didn't need to go for cath since he is feeling so much better now but is amenable to whatever recommendations are made per cardiology. Objective Active Medications: Acetaminophen (Tylenol Tab*) 650 mg PO Q6H PRN Al Hydrox/Mg Hydrox/Simethicone (Maalox Plus*) 30 ml PO Q6H PRN Amitriptyline HCl (Elavil Tab*) 50 mg PO BEDTIME EVELIN Aspirin (Aspirin Ec Tab*) 81 mg PO QAM EVELIN Atorvastatin Calcium (Lipitor*) 80 mg PO QPM EVELIN Dextrose (D50w Syringe 50 Ml*) 12.5 gm IV PUSH .FOR FS < 60 - SS PRN Ezetimibe (Zetia Tab*) 10 mg PO QAM EVELIN Fentanyl (Duragesic Patch 50 Mcg/Hr*) 50 mcg TRANSDERM Q72H EVELIN Heparin Sodium (Porcine) (Heparin Vial(*)) 4,000 units IV ED ONCE EVELIN Heparin Sodium (Porcine) (Heparin Vial(*)) 0 units IV .BOLUS PRN Heparin Sodium/Dextrose (Heparin Drip 25,000 Units(*)) 25,000 units in 500 mls @ 0 mls/hr IV PER RATE EVELIN; Protocol Nitroglycerin/Dextrose (Nitroglycerin Drip*) 25,000 mcg in 250 mls @ 6 mls/hr IV .(Initial Rate) EVELIN; Protocol Sodium Chloride (Ns 0.9% 1000 Ml*) 1,000 mls @ 75 mls/hr IV PER RATE [facility] Insulin Human Lispro (Humalog*) 0 units SUBCUT AC EVELIN; Protocol Metoclopramide HCl (Reglan Iv*) 10 mg IV SLOW PU Q6H EVELIN Metoprolol Succinate (Toprol Xl Tab*) 25 mg PO QAM EVELIN Metoprolol Succinate (Toprol Xl Tab*) 50 mg PO 2100 EVELIN Morphine Sulfate (Morphine Vial*) 2 mg IV Q4H PRN Omeprazole (Prilosec Cap*) 20 mg PO BID AC [facility] Ondansetron HCl (Zofran Inj*) 8 mg IV Q8H PRN Pharmacy Profile Note (Fentanyl Patch Check Q Shift) 1 note N/A 0700,1900 EVELIN Prochlorperazine Edisylate (Compazine Inj*) 5 mg IV Q6H PRN Ramipril (Altace Cap*) 5 mg PO 2100 EVELIN Ranolazine (Ranexa (Nf)) 1,000 mg PO BID [facility]; Protocol Terazosin HCl (Hytrin Cap*) 2 mg PO 2100 EVELIN Ticagrelor (Brilinta*) 90 mg PO BID [facility] Vital Signs: Temp Pulse Resp BP Pulse Ox 98.2 F 72 18 112/68 99 03/22/18 03:23 03/22/18 05:45 03/22/18 05:58 03/22/18 05:45 03/22/18 05:45 Oxygen Devices in Use Now: None Appearance: Male standing in room in NAD, at bedside Eyes: No Scleral Icterus Ears/Nose/Mouth/Throat: Mucous Membranes Moist Neck: Trachea Midline Respiratory: Symmetrical Chest Expansion and Respiratory Effort, Clear to Auscultation Cardiovascular: NL Sounds; No Murmurs; No JVD, No Edema Abdominal: NL Sounds; No Tenderness; No Distention Lymphatic: No Cervical Adenopathy Extremities: No Edema Skin: No Rash or Ulcers Neurological: Alert and Oriented x 3, NL Muscle Strength and Tone Nutrition: Taking PO's Result Diagrams: 03/21/18 06:08 03/21/18 06:08 Additional Lab and Data: . Microbiology and Other Data: . Assess/Plan/Problems-Billing Assessment: Mr. Kaye is a 47 yo M with a PMH of CABG, DM, and chronic nausea and vomiting associated with gastroparesis and cyclical vomiting syndrome who was re -admitted on 03/20/18 after being discharged earlier that day with chest pain found to have NSTEMI. - Patient Problems (1) NSTEMI (non-ST elevated myocardial infarction) Comment: - Remains chest pain free, nitro gtt off. Trop elevated, up to 3.24. EKG without significant change. - Consultation from Dr. Oswald pendkathy. Last cardiac cath 10/2017, stent placed to circumflex. Has history of CABG x 3 in 2008, stent to circumflex in 2014. - Continue heparin gtt, aspirin, atorvastatin, metoprolol, oxygen. (2) Hypertension Comment: - BP controlled. - Continue metoprolol, ramipril. (3) Diabetes mellitus type 2, controlled, with complications Comment: - Continue lispro SSI coverage with meals. Hold metformin. - HgA1C 9.3 01/27/18. - Pt plans to be a new patient of Dr. Brenner office. (4) Dyslipidemia Comment: - Continue atorvastatin and zetia. (5) Depression Comment: - Patient reports depression. Continue amitriptyline. Pt encouraged to discuss with his PCP and consider counseling. (6) Chronic pain Comment: - Follows with the pain clinic. - Continue Fentanyl patch and oxycodone prn. (7) Gastroparesis Comment: - Denies nausea, vomiting, or abdominal pain. - Continue amitriptyline and metoclopramide. (8) DVT prophylaxis Comment: - SCDs and Heparin gtt. (9) Full code status Comment: Status and Disposition: Inpatient. Anticipate discharge to home when medically stable.
[2018-03-22] MEDS: Ezetimibe TAB* 10 MG PO SCH (07:53)
[2018-03-22] MEDS: Omeprazole CAP* 20 MG PO SCH ×2 (07:53→16:30)
[2018-03-22] MEDS: CMCS:Ranolazine (NF) 500 MG TAB PO SCH ×2 (07:53→19:48)
[2018-03-22] MEDS: Ticagrelor* 90 MG TAB PO SCH ×2 (07:53→19:48)
[2018-03-22] MEDS: Aspirin EC TAB* 81 MG TAB.EC PO SCH (07:54)
[2018-03-22] MEDS: Metoprolol Succinate XL TAB* 25 MG PO SCH (07:57)
[2018-03-22] MEDS: Insulin LISPRO* 1 UNITS UNIT SUBCUT SCH ×3 (08:14→17:46)
[2018-03-22] MEDS ORDERED: Diazepam TAB(*) 5 MG PO ONE (10:12)
[2018-03-22] MEDS: Atorvastatin* 80 MG TAB PO SCH (17:45)
[2018-03-22] MEDS: Metoprolol Succinate XL TAB* 50 MG PO SCH (19:47)
[2018-03-22] MEDS: Ramipril CAP* 5 MG PO SCH (19:47)
[2018-03-22] MEDS: Amitriptyline TAB* 50 MG PO SCH (19:48)
[2018-03-22] MEDS: Terazosin CAP* 1 MG PO SCH (19:58)
[2018-03-23] MEDS: Morphine VIAL* 4 MG/ML VIAL (1 ml vial) IV PRN ×3 (00:09→23:00)
[2018-03-23] MEDS: Metoclopramide IV* 5 MG/ML 2 ML VIAL IV SLOW PU SCH ×4 (01:27→18:12)
[2018-03-23] MEDS ORDERED: NS 0.9% 500 ML* 500 ML IV ONE ×2 (03:42→04:30)
[2018-03-23] MEDS: NS 0.9% 1000 ML* 1,000 ML IV SCH (04:20)
--- NOTE | 2018-03-23 04:36 | PN ---
Progress Note - Progress Note Date of Service: 03/23/18 Note: Cross cover: Patient woken up for vitals found diaphoretic. Denies chest pain, SOB, N/V. BP declined 77/49 increased to low 80s with 500cc bolus. Urine was noted to be concentrated. Now in bigeminy on tele. EKG without ischemic changes. Seen at bedside and looks comfortable, irregular HR, lungs clear, abdomen benign. Additional 500cc NS now and follow closely.
[2018-03-23] MEDS: Ondansetron INJ* 2 MG/ML VIAL IV PRN (05:12)
[2018-03-23] MEDS: Heparin DRIP 25,000 UNITS(*) 25,000 UNITS/500 ML BAG IV SCH (05:15)
[2018-03-23] MEDS: fentaNYL Patch Check Q Shift 1 NOTE SCH ×2 (06:42→19:34)
[2018-03-23] MEDS ORDERED: NS 0.9% 1000 ML* 1,000 ML IV SCH ×2 (08:12→14:58)
[2018-03-23] MEDS: Insulin LISPRO* 1 UNITS UNIT SUBCUT SCH ×3 (08:34→18:00)
[2018-03-23] MEDS: PROCHLORPERAZINE INJ 5 MG/ML 2 ML VIAL IV PRN (08:42)
[2018-03-23] MEDS: Metoprolol Succinate XL TAB* 25 MG PO SCH (08:54)
[2018-03-23 08:56] LABS: ABS Basophils 0 10^3/ul (0-0.2); ABS Eosinophils 0.1 10^3/ul (0-0.6); ABS Lymphocytes 1.9 10^3/ul (1.0-4.8); ABS Monocytes 0.6 10^3/ul (0-0.8); ABS Neutrophils 4.4 10^3/ul (1.5-7.7); ABS Nucleated RBC 0 10^3/ul; Eosinophil % 1.1 % (0-6); Hematocrit 29 % (42-52); Hemoglobin 10.2 g/dl (14.0-18.0); Lymphocyte % 26.8 % (25-47); Mean Corpuscular HGB Conc 35 g/dl (31-36); Mean Corpuscular Hemoglobin 30 pg (27-31); Mean Corpuscular Volume 86 fL (80-94); Mean Platelet Volume 8.8 um3 (7.4-10.4); Nucleated Red Blood Cells % 0.1; Platelet Count 138 10^3/ul (150-450); Red Blood Count 3.36 10^6/ul (4.00-5.40); Red Cell Distribution Width 13 % (10.5-15)
[2018-03-23 09:14] LABS: EGFR Non-African American 79.8 (>60)
[2018-03-23] MEDS ORDERED: Norepinephrine 16MCG/ML IVPRE* 4,000 MCG/250 ML BAG IV ONE (09:17)
[2018-03-23] MEDS ORDERED: Perflutren Lipid Microsphere* 3 ML VIAL ONE (09:26)
[2018-03-23] MEDS ORDERED: Norepinephrine 16MCG/ML IVPRE* 4,000 MCG/250 ML BAG IV SCH (10:00)
[2018-03-23] MEDS ORDERED: Lidocaine 1% MPF* 2 ML VIAL INJ ONE (10:00)
--- NOTE | 2018-03-23 10:31 | PN ---
Hospitalist Progress Note Date of Service: 03/23/18 was paged this morning by nurse who reported continued low blood pressures and chest pain /, was given 2 500 ml fluid boluses overnight. Plan was for cardiac cath this am. Dr. Galicia (jewelry casting model maker) at bedside recommending stat CBC, Trop, CKMB and bedside echo - will add on BMP and magnesium. Patient has now been transferred to [facility]. Dr. Robertson Winding Machine Operator at bedside placing a central line and patient has been started on levophed gtt. Plan to transfer patient to Winding Machine Operator service, Hospital Medicine will resume care when patient is stabilized. Discussed with patients .
--- NOTE | 2018-03-23 11:16 | ECHO ---
Patient: GWYN MIRELES [facility] Rec#: [id number] : 1970 Date: 03/23/2018 Age: 47y Height: 177.8 cm / 70.0 in Weight: 88.45 kg / 194.9 lbs Sex: M BSA: 2.06 Room#: ICU8 Admit Date#: 03/20/2018 Type: Inpatient Referring: Kalen Galicia MD Reading: Kalen Galicia MD Internal Control Specialist: Molly Dhaliwal MARA CC: Tito Saunders MD Transthoracic Echocardiogram Indication: Hypotension BP: 82/56 HR: 62 Rhythm: NSR Findings History: DM,CAD,s/p CABG and PCI,HLD,HTN,murmur. Technical Comments: The study is technically limited due to patient body habitus. Definity used to enhance images. Left Ventricle: The left ventricular chamber size is normal. There is moderate to severely decreased left ventricular systolic function. The estimated ejection fraction is 25-30%. Ventricular septal wall motion has a post-operative appearance. Abnormal left ventricular diastolic function is observed. Left Atrium: The left atrium is mildly dilated. Right Ventricle: The right ventricular cavity size is normal. The right ventricular global systolic function is moderately reduced. Right Atrium: The right atrium is mildly dilated. Aortic Valve: The aortic valve is trileaflet. The aortic valve leaflets are mildly thickened. There is no evidence of aortic regurgitation. There is mild aortic stenosis.The degree of aortic stenosis may be underestimated due to the reduced LVEF. Dimensionless index suggests mild to moderate. The mean gradient of the aortic valve is 6.44 mmHg. The aortic valve area, by VTI's, is calculated at 1.4 cm2. Mitral Valve: The mitral valve leaflets are mildly thickened. There is mild mitral regurgitation. There is no evidence of mitral stenosis. Tricuspid Valve: The tricuspid valve leaflets are normal. There is a physiologic tricuspid regurgitation. Unable to estimate the right ventricular systolic pressure. Pulmonic Valve: The pulmonic valve appears normal. There is a trace pulmonic regurgitation. There is no pulmonic stenosis. Pericardium: A pericardial fat pad is visualized. Aorta: There is no dilatation of the ascending aorta. The aortic arch is not well visualized. There is no dilation of the aortic root. Pulmonary Artery: The main pulmonary artery appears normal. Venous: The venous system is not well visualized. Contrast: Definity was used to optimize study. A total of 5 ml used. Intravenous contrast was used to enhance endocardial border definition. Conclusions There is moderate to severely decreased left ventricular systolic function. The estimated ejection fraction is 25-30%. The left atrium is mildly dilated. There is mild aortic stenosis.The degree of aortic stenosis may be underestimated due to the reduced LVEF. Dimensionless index suggests mild to moderate. There is mild mitral regurgitation. There is a physiologic tricuspid regurgitation. There is a trace pulmonic regurgitation. Compared to report of study from 01/29/2018 the overall LV systolic function is worse. Measurements Name Value Normal Range RVIDd (AP) 2D 3 cm (0.9 - 2.6) RAd ISD 4CH 5.7 cm (3.4 - 4.9) RA (A4C)W 4.9 cm (2.9 - 4.6) IVSd (2D) 0.7 cm (0.6 - 1) LVPWd (2D) 0.8 cm (0.6 - 1) LVIDd (2D) 4.5 cm (3.6 - 5.4) LVIDs (2D) 4.1 cm - LV FS (2D) 8 % (25 - 45) Aortic Annulus 1.9 cm (1.4 - 2.6) Ao root diameter (2D) 2.6 cm (2.1 - 3.5) Ascending Ao 2.8 cm (2.1 - 3.4) LA dimension (AP) 2D 4.1 cm (2.3 - 3.8) LAd ISD 4CH 5.7 cm (2.9 - 5.3) LA ISD 4CH W 4.2 cm (2.5 - 4.5) Name Value Normal Range MV E-wave Vmax 0.9 m/sec - MV deceleration time 159 msec - MV A-wave Vmax 0.2 m/sec - MV E:A ratio 3.78 ratio - LV septal e' Vmax 0.05 m/sec - LV lateral e' Vmax 0.07 m/sec - LV E:e' septal ratio 18 ratio - LV E:e' lateral ratio 12.85 ratio - Name Value Normal Range AV Vmax 1.5 m/sec - AV VTI 33.1 cm - AV peak gradient 9.35 mmHg - AV mean gradient 6.44 mmHg - LVOT diameter 2 cm - LVOT Vmax 0.8 m/sec - LVOT VTI 14.9 cm - LVOT peak gradient 2.73 mmHg - LVOT mean gradient 1.33 mmHg - DHARA (continuity Vmax) 1.7 cm2 - DHARA (continuity VTI) 1.4 cm2 - Name Value Normal Range PV Vmax 0.8 m/sec - PV peak gradient 2.41 mmHg -
[2018-03-23] MEDS: CMCS:Ranolazine (NF) 500 MG TAB PO SCH ×2 (11:17→21:37)
[2018-03-23] MEDS: Ticagrelor* 90 MG TAB PO SCH ×2 (11:17→23:49)
[2018-03-23] MEDS: Omeprazole CAP* 20 MG PO SCH ×3 (11:17→18:19)
[2018-03-23] MEDS: Ezetimibe TAB* 10 MG PO SCH (11:17)
--- NOTE | 2018-03-23 11:29 | PN ---
Progress Note - Progress Note Date of Service: 03/23/18 - Procedure note Note: Date: 03/23/18 Time: 11:27 am Indication: Hemodynamic monitoring Anesthesia: 1% lidocaine 3 cc Procedure: A time-out was completed verifying correct patient, procedure, site, positioning, and special equipment if applicable. Allens test was performed to ensure adequate perfusion. The patients right wrist was prepped and draped in sterile fashion. 1% Lidocaine was used to anesthetize the area. 18G Arrow arterial line was introduced into the radial artery. The catheter was threaded over the guide wire and the needle was removed with appropriate pulsatile blood return. The catheter was then sutured in place to the skin and a sterile dressing applied. Perfusion to the extremity distal to the point of catheter insertion was checked and found to be adequate. Estimated Blood Loss: Negligible The patient tolerated the procedure well and there were no complications.
[2018-03-23] MEDS: KCL 20 MEQ/100 ML IVPREMIX* 20 MEQ/100 ML BAG IV SCH ×2 (11:45→16:21)
[2018-03-23] MEDS: Aspirin EC TAB* 81 MG TAB.EC PO SCH (11:54)
--- NOTE | 2018-03-23 12:02 | RAD ---
HISTORY: Abdominal pain, tenderness COMPARISONS: CT dated January 27, 2013 TECHNIQUE: Multiple transverse and longitudinal ultrasound images were obtained of the abdomen using grayscale, color Doppler, and spectral Doppler imaging. FINDINGS: LIVER: The liver measures 19 cm in long axis. There are no focal hepatic parenchymal masses. There is normal hepatopedal flow of the portal vein on Doppler imaging. BILIARY TREE: There is no intrahepatic or extrahepatic biliary dilatation. The common duct measures 0.2 cm. GALLBLADDER: The patient is status post cholecystectomy. PANCREAS: The head of the pancreas is unremarkable. The tail of the pancreas is not well visualized secondary to overlying bowel gas. SPLEEN: The spleen is normal in shape, size, contour, and echotexture. The spleen measures 11.4 cm. RIGHT KIDNEY: The right kidney is normal in shape, size, contour, and echogenicity. There is a 0.4 cm calculus of the midpole the right kidney. This appears to correspond to a cyst noted on previous CT. There is no associated hydronephrosis. The right kidney measures 12.6 x 5.4 x 5.4 cm. LEFT KIDNEY: The left kidney is normal in shape, size, contour, and echogenicity. There is no hydronephrosis or nephrolithiasis. The left kidney measures 11.1 x 5.4 x 5.3 cm. AORTA AND IVC: The aorta and IVC are unremarkable. FLUID: There is a trace right pleural effusion. OTHER FINDINGS: None. IMPRESSION: 1. TRACE RIGHT PLEURAL EFFUSION. 2. RIGHT NEPHROLITHIASIS WITHOUT HYDRONEPHROSIS. 3. MILD HEPATOMEGALY
--- NOTE | 2018-03-23 12:26 | CONSULT ---
Consult Consult: Critical care consultation Date of consult: 03/23/18 Reason for consult: Hypotension Consult requested by: Dr Kalen Galicia CC: Chest pain HPI: 47 y o obese male with h/o CAD, s/p CABG and PCI, s/p stent in Oct 2017, cyclical vomiting, gastroparesis, DM, chronic back pain on opiates. Pt was admitted on 03/20/18 with chest pain, was moniotred in ICU for NSTEMI with plan for catheterization. He was pain free and was transferred to telemetry. He was found to be diaphoretic this am by RN at time of routine visit for obtaining vitals. He was found to be hypotensive with systolic BP around 70. He also c/o chest pain and adb discomfort. He was also having nausea with no episodes of vomiting. He was given 500 cc fluid bolus with no improvement in BP, was given another 500cc bolus. He was transferred back to ICU. He was continued on 100cc/ hr of NACL, ECHO was done at bedside. He was noted to have drop in EF, now estimated at 25-30%, mild to moderate . Arterial line was placed for hemodynamic monitoring. He has reported improvement in abdominal pain and chest pain. Nausea has resolved. He is afebrile, no leucocytosis, denies headache, blurry vision, dark stools, diarrhea. He has h/o chronic constipation that he attributes to pain meds. He also has h/o gastroparesis with episodic nausea and vomiting. 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 DM Obesity HTN Cyclical vomiting Gastroparesis HTN Neuropathy Chronic pain GERD with h/o gastritis and GI bleed Depression Insomnia Cholecystectomy in 2017 Meds: Active Medications Generic Name Dose Route Start Last Admin Trade Name Freq PRN Reason Stop Dose Admin Acetaminophen 650 mg 03/21/18 10:37 03/21/18 21:32 Tylenol Tab* PO 650 mg Q6H PRN Administration PAIN Al Hydrox/Mg Hydrox/Simethicone 30 ml 03/20/18 22:29 Maalox Plus* PO Q6H PRN INDIGESTION Amitriptyline HCl 50 mg 03/21/18 21:00 03/22/18 19:48 Elavil Tab* PO 50 mg BEDTIME EVELIN Administration Aspirin 81 mg 03/21/18 09:00 03/23/18 11:54 Aspirin Ec Tab* PO Not Given QAM EVELIN Atorvastatin Calcium 80 mg 03/20/18 22:50 03/22/18 17:45 Lipitor* PO 80 mg QPM EVELIN Administration Dextrose 12.5 gm 03/20/18 23:00 D50w Syringe 50 Ml* IV PUSH .FOR FS < 60 - SS PRN FS < 60 Ezetimibe 10 mg 03/21/18 09:00 03/23/18 11:17 Zetia Tab* PO Not Given QAM EVELIN Fentanyl 50 mcg 03/20/18 23:00 03/21/18 01:26 Duragesic Patch 50 Mcg/Hr* TRANSDERM 50 mcg Q72H EVELIN Administration Heparin Sodium (Porcine) 4,000 units 03/20/18 22:00 03/20/18 21:44 Heparin Vial(*) IV 4,000 units ED ONCE EVELIN Administration Heparin Sodium (Porcine) 0 units 03/20/18 21:53 03/21/18 21:56 Heparin Vial(*) IV 4,000 units .BOLUS PRN Administration PER HEPARIN DRIP PROTOCOL Heparin Sodium/Dextrose 25,000 units in 500 mls @ 0 mls/hr 03/20/18 21:15 02/03 05:15 Heparin Drip 25,000 Units(*) IV 19 mls/hr PER RATE EVELIN Administration Protocol Per Protocol Sodium Chloride 1,000 mls @ 100 mls/hr 03/23/18 08:12 03/23/18 11:54 Ns 0.9% 1000 Ml* IV 03/23/18 18:11 Not Given PER RATE EVELIN Norepinephrine Bitartrate 4,000 mcg in 250 mls @ 18.75 mls/hr 03/23/18 10:00 Levophed 16 Mcg/Ml Premix Bag* IV .INITIAL RATE EVELIN Protocol 5 MCG/MIN Potassium Chloride 20 meq in 100 mls @ 50 mls/hr 03/23/18 10:00 Potassium Chloride 20 Meq/100 Ml Ivpremix* IV 03/23/18 13:59 Q2H EVELIN Insulin Human Lispro 0 units 03/22/18 07:30 03/23/18 08:34 Humalog* SUBCUT 4 unit AC EVELIN Administration Protocol Metoclopramide HCl 10 mg 03/21/18 01:00 03/23/18 07:32 Reglan Iv* IV SLOW PU 10 mg Q6H EVELIN Administration Metoprolol Succinate 25 mg 03/21/18 09:00 03/23/18 08:54 Toprol Xl Tab* PO Not Given QAM EVELIN Metoprolol Succinate 50 mg 03/21/18 21:00 03/22/18 19:47 Toprol Xl Tab* PO 50 mg 2100 EVELIN Administration Morphine Sulfate 2 mg 03/20/18 22:29 03/23/18 00:09 Morphine Vial* IV 2 mg Q4H PRN Administration PAIN Omeprazole 20 mg 03/21/18 07:30 03/23/18 11:17 Prilosec Cap* PO Not Given BID AC EVELIN Ondansetron HCl 8 mg 03/21/18 00:23 03/23/18 05:12 Zofran Inj* IV 8 mg Q8H PRN Administration NAUSEA Pharmacy Profile Note 1 note 03/21/18 07:00 03/23/18 06:42 Fentanyl Patch Check Q Shift N/A 1 note 0700,1900 EVELIN Administration Prochlorperazine Edisylate 5 mg 03/21/18 00:23 03/23/18 08:42 Compazine Inj* IV 5 mg Q6H PRN Administration NAUSEA/VOMITING Ramipril 5 mg 03/21/18 21:00 03/22/18 19:47 Altace Cap* PO 5 mg 2100 EVELIN Administration Ranolazine 1,000 mg 03/21/18 09:00 03/23/18 11:17 Ranexa (Nf) PO Not Given BID [facility] Protocol Terazosin HCl 2 mg 03/21/18 21:00 03/22/18 19:58 Hytrin Cap* PO 2 mg 2100 EVELIN Administration Ticagrelor 90 mg 03/21/18 09:00 03/23/18 11:17 Brilinta* PO Not Given BID EVELIN All: Cat dander, erythromycin base ROS: All 14 systems reviewed and as per HPI Social Hx: Former smoker, quit 25 yrs ago, No ETOH abuse, Uses Marijuana intermittently. Sheldon is HCP FHX: CHF, DM in parents, Esophageal cancer in grand father Vital Signs Temp Pulse Resp BP Pulse Ox 98.2 F 79 19 91/62 98 03/23/18 09:13 03/23/18 10:01 03/23/18 10:01 03/23/18 10:01 03/23/18 10:01 O/E: Pt in NAD, alert, awake HEENT: PERRLA, no JVD, no accessory muscle usage, MP-4 airway CVS: S1, S2+, regular Resp: Clear to auscultation, no wheeze Abd: Obes BS+, epigastric tenderness + Ext: Normal ROM Neuro: No focal defecits Skin: No rash or bruise Laboratory Results - last 24 hr 03/22/18 03/22/18 03/22/18 13:00 16:32 18:56 WBC RBC Hgb Hct MCV MCH MCHC RDW Plt Count MPV Neut % (Auto) Lymph % (Auto) [place] % (Auto) Eos % (Auto) Baso % (Auto) Absolute Neuts (auto) Absolute Lymphs (auto) Absolute Monos (auto) Absolute Eos (auto) Absolute Basos (auto) Absolute Nucleated RBC Nucleated RBC % APTT 67.0 H 53.7 H Sodium Potassium Chloride Carbon Dioxide Anion Gap BUN Creatinine Est GFR ( Amer) Est GFR (Non-Af Amer) BUN/Creatinine Ratio Glucose POC Glucose (mg/dL) 184 H Calcium Magnesium Total Creatine Kinase CK-MB (CK-2) Troponin I 03/23/18 03/23/18 03/23/18 07:35 08:35 08:35 WBC 7.0 RBC 3.36 L Hgb 10.2 L Hct 29 L MCV 86 MCH 30 MCHC 35 RDW 13 Plt Count 138 L MPV 8.8 Neut % (Auto) 62.7 Lymph % (Auto) 26.8 Lancaster % (Auto) 9.0 H Eos % (Auto) 1.1 Baso % (Auto) 0.4 Absolute Neuts (auto) 4.4 Absolute Lymphs (auto) 1.9 Absolute Monos (auto) 0.6 Absolute Eos (auto) 0.1 Absolute Basos (auto) 0 Absolute Nucleated RBC 0 Nucleated RBC % 0.1 APTT 72.4 H Sodium Potassium Chloride Carbon Dioxide Anion Gap BUN Creatinine Est GFR ( Amer) Est GFR (Non-Af Amer) BUN/Creatinine Ratio Glucose POC Glucose (mg/dL) 239 H Calcium Magnesium Total Creatine Kinase CK-MB (CK-2) Troponin I 03/23/18 08:35 WBC RBC Hgb Hct MCV MCH MCHC RDW Plt Count MPV Neut % (Auto) Lymph % (Auto) [place] % (Auto) Eos % (Auto) Baso % (Auto) Absolute Neuts (auto) Absolute Lymphs (auto) Absolute Monos (auto) Absolute Eos (auto) Absolute Basos (auto) Absolute Nucleated RBC Nucleated RBC % APTT Sodium 137 Potassium 3.4 L Chloride 106 Carbon Dioxide 25 Anion Gap 6 BUN 12 Creatinine 1.00 Est GFR ( Amer) 96.5 Est GFR (Non-Af Amer) 79.8 BUN/Creatinine Ratio 12.0 Glucose 228 H POC Glucose (mg/dL) Calcium 8.4 L Magnesium 1.8 L Total Creatine Kinase 105 CK-MB (CK-2) 9.3 H Troponin I 1.69 H* I/R: 47 y o obese male with h/o CAD s/p CABG, PCI, DM with chest pain, hypotension, abd discomfort, diaphoresis and nausea Hypotension likely cardiogenic shock with component of dehydration NSTEMI Gastroparesis Abd discomfort with h/o GERD, GI bleed, unclear etiology Hypokalemia, hypomagnesemia Normocytic anemia 1.CVS: Hypotension didnot respond to 1L fluid bolus, avoiding further bolus given drop in EF. Started on Levophed to maintain MAP at 65. Will titrate as needed. Will contiue IVF @ 100cc/hr. NSTEMI awaiting cath this am by Dr Galicia. c/w heparin drip, Brilinta, ASA. Troponins peaked at 3.2, trending down. 2. Resp: Started on 2L O2 supplementation, no crackles at bases, CXR on admission showed prminance of interstitium and small rt pl effusion, pt is former smoker. Resp status is stable 3. Neuro: Alert, awake, has h/o anxiety, chronic pain on pain meds. Received Morphine earlier, has Fentanyl patch on. 4. Renal: Electrlyte abnormalities with low potassium and magnesium, repleted, CR is normal. Urine UO is good, will monitor electrolytes and replete as needed 5. GI: Ongoing issues with gastroparesis due to DM, cyclical N, V, chronic abd pain and discomfort. Pt also has h/o GI bleed as per prior records, has been on antiplatelet agents and Heparin now with no acute bleeding episodes. c/w GI ppx , Zofran prn for nausea. U/S of abdomen no acute issues, Rt nephrolithiasis with no hydronephrosis. 6. Endo: DM, bl sugars elevated on Insulin SS 7. ID: NO signs of sepsis at this time. Will hold off abx 8. Musculoskeletal: Chronic back pain on Fentanyl patch. Receiving Morphine prn 9. Psycho social: No acute anxiety issue, has h/o depression. at bedside and was updated Supportive and preventive care as ordered IV access: Rt radial A-line, PICC line in rt forearm Lfores catheter for monitoring of fluid status and to prevent bed sores D/w Dr Galicia
[2018-03-23] MEDS ORDERED: Heparin 2 UNITS/ML IVPREMIX* 2,000 ML IV ONE (12:54)
[2018-03-23] MEDS ORDERED: fentaNYL* 50 MCG/ML 2 ML VIAL (100 MCG VIAL) ONE (12:54)
[2018-03-23] MEDS ORDERED: Iohexol 350 (CONTRAST) 200 ML MDV IV ONE ×2 (12:54→12:55)
[2018-03-23] MEDS ORDERED: nitroGLYCERIN DRIP* 25,000 MCG/250 ML BTL ONE (12:55)
[2018-03-23] MEDS ORDERED: Heparin(*) 1000 UNIT/ML 10 ML VIAL CATH LAB IV ONE (12:56)
[2018-03-23] MEDS ORDERED: Lidocaine 1%* 5 ML VIAL ONE (12:56)
[2018-03-23] MEDS ORDERED: Midazolam* 1 MG/ML 10 ML VIAL (10 MG) ONE (12:56)
[2018-03-23] MEDS ORDERED: Ticagrelor* 90 MG TAB PO ONE (13:40)
[2018-03-23] MEDS ORDERED: Aspirin 81 mg CHEW TAB* 81 MG TAB.CHEW ONE (13:40)
[2018-03-23] MEDS ORDERED: Bivalirudin(*) 250 MG VIAL ONE (13:53)
[2018-03-23] MEDS ORDERED: Nitroglycerin TAB 0.4 MG* 0.4 MG TAB SL PRN (14:53)
[2018-03-23] MEDS: Atorvastatin* 80 MG TAB PO SCH ×2 (18:11→23:49)
[2018-03-23] MEDS ORDERED: Magnesium Sulfate 2 GM IV* 2 GM/50 ML BAG IVPB ONE (20:42)
[2018-03-23] MEDS ORDERED: NS 0.9% 100 ML* 100 ML ONE (20:58)
[2018-03-23] MEDS ORDERED: Magnesium Sulfate IV* 2 GM in NS 0.9% 100 ML* 100 ML IVPB ONE (21:00)
[2018-03-23] MEDS: Ramipril CAP* 5 MG PO SCH (21:37)
[2018-03-23] MEDS: Terazosin CAP* 1 MG PO SCH (21:37)
[2018-03-23] MEDS: Metoprolol Succinate XL TAB* 50 MG PO SCH (21:45)
[2018-03-23] MEDS ORDERED: Metoprolol Succinate XL TAB* 50 MG PO ONE (23:30)
[2018-03-23] MEDS: fentaNYL PATCH 50 MCG/HR TRANSDERM SCH (23:35)
[2018-03-23] MEDS: Amitriptyline TAB* 50 MG PO SCH (23:49)
[2018-03-24] MEDS: Metoclopramide IV* 5 MG/ML 2 ML VIAL IV SLOW PU SCH ×4 (00:59→19:15)
[2018-03-24] MEDS ORDERED: NS 0.9% 500 ML* 500 ML IV ONE (02:45)
--- NOTE | 2018-03-24 02:46 | PN ---
Hospitalist Progress Note Date of Service: 03/24/18 Bolused pt with 500cc NS with SBPs in the 80s...Just recently weaned off of pressors
[2018-03-24 04:48] LABS: ABS Basophils 0 10^3/ul (0-0.2); ABS Eosinophils 0.1 10^3/ul (0-0.6); ABS Lymphocytes 1.9 10^3/ul (1.0-4.8); ABS Monocytes 0.7 10^3/ul (0-0.8); ABS Neutrophils 5.8 10^3/ul (1.5-7.7); ABS Nucleated RBC 0 10^3/ul; Hematocrit 26 % (42-52); Lymphocyte % 22.6 % (25-47); Mean Corpuscular HGB Conc 35 g/dl (31-36); Mean Corpuscular Hemoglobin 30 pg (27-31); Mean Corpuscular Volume 86 fL (80-94); Mean Platelet Volume 8.3 um3 (7.4-10.4); Nucleated Red Blood Cells % 0.1; Platelet Count 137 10^3/ul (150-450); Red Blood Count 2.97 10^6/ul (4.00-5.40); Red Cell Distribution Width 13 % (10.5-15); White Blood Count 8.6 10^3/ul (3.5-10.8)
[2018-03-24 05:06] LABS: EGFR Non-African American 103.2 (>60)
[2018-03-24] MEDS ORDERED: Potassium Chlor TAB* 20 MEQ TAB.ER PO ONE ×2 (05:22→11:34)
[2018-03-24] MEDS: fentaNYL Patch Check Q Shift 1 NOTE SCH ×2 (06:45→19:15)
[2018-03-24] MEDS: Omeprazole CAP* 20 MG PO SCH ×2 (06:55→17:14)
[2018-03-24] MEDS: Insulin LISPRO* 1 UNITS UNIT SUBCUT SCH ×3 (09:00→17:14)
[2018-03-24] MEDS: Metoprolol Tartrate TAB* 25 MG PO SCH ×5 (10:12→22:52)
[2018-03-24] MEDS: Ticagrelor* 90 MG TAB PO SCH ×2 (10:12→20:35)
[2018-03-24] MEDS: Ezetimibe TAB* 10 MG PO SCH (10:12)
[2018-03-24] MEDS: CMCS:Ranolazine (NF) 500 MG TAB PO SCH ×2 (10:13→20:35)
[2018-03-24] MEDS: Aspirin 81 mg CHEW TAB* 81 MG TAB.CHEW PO SCH (10:13)
--- NOTE | 2018-03-24 13:06 | CATH ---
CC: Tito Saunders MD; Dr. Santos Oswald * CARDIAC CATHETERIZATION AND INTERVENTIONAL REPORT: DATE OF PROCEDURE: 03/23/18 - ROOM #451 PRIMARY CARE PHYSICIAN: Tito Saunders MD INDICATION FOR THE PROCEDURE: The patient with non-ST elevation myocardial infarction with significant left ventricular systolic dysfunction and a known history of coronary artery disease. PROCEDURE: Coronary arteriography of the left coronary artery, BARR graft arteriography to the LAD, a balloon angioplasty and placement of a 2.75 x 15 mm long Xience drug-eluting stent overlapped more proximally by a 3.0 x 12 mm long Xience Alpine drug-eluting stent in the proximal circumflex to left main, left heart catheterization, and left ventriculography. The patient was interviewed and examined on the floor of the hospital where the risks and benefits were explained. He understood them and wished to proceed. PRECARDIAC CATHETERIZATION LABORATORY RESULTS: Hemoglobin 10.2, of note it is erroneously reported in the [employer] data sheet as 7; hematocrit was 29; platelet count was 138,000. BUN 12, creatinine 1.0, potassium 3.4, sodium 137, bicarb 25, chloride 106. MEDICATIONS GIVEN: Included: 1. Baby aspirin and his 90 mg dose of Brilinta. 2. He also received an Angiomax bolus and an Angiomax drip after the ACT was found to be subtherapeutic for intervention. EQUIPMENT UTILIZED: The right femoral: 1. Right femoral sheath 11-cm Nely sheath. 2. Guiding catheter for left coronary artery was a 5-[place]an FL 4 curve. A guide catheter for the BLU was a 5-[place] BLU catheter. 3. For left heart catheterization was a 5-[place] angled pigtail catheter. 4. Interventional sheath was a 6.5 Merit Prelude sheath. The guiding catheter was VL 3.5 curve 6-[place]ankan guide. 5. The guidewire was a BMW, regular length. 6. Initial balloon angioplasty with a 2.5 x 12 mm long NC Emerge balloon followed by 2.75 x 8 mm long NC Emerge balloon. 7. Stent placement with a 2.75 x 15 mm long Alpine stent with post dilatations made with a 2.75 x 8 mm long NC Emerge balloon. Proximal stent placement was a 3.0 x 12 mm long Xience Alpine stent followed by high pressure balloon inflations with an NC Emerge 3.0 x 8 mm long balloon. DESCRIPTION OF PROCEDURE: The patient was prepped and draped in sterile fashion. Formal time-out was performed. Right femoral 5-[place]ankan sheath was placed and diagnostic angiography of the left coronary artery and the BARR graft were performed. Left heart catheterization was performed using an angled pigtail catheter advanced to the ascending aorta where central aortic pressure was recorded. The catheter was passed across the aortic valve into the left ventricle where left ventricular pressure was recorded. Left ventriculography was performed utilizing a total of 24 cc of Omnipaque dye at a rate of 12 cc per second. The catheter was then pulled back across the aortic valve to recheck gradient. After this, the sheath was exchanged for a 6-[place]ankan sheath. Guiding views were obtained utilizing the VL 3.5 curve guide catheter. The patient had an ACT drawn, which was subtherapeutic. Angiomax bolus and Angiomax drip was started. The guidewire was placed down the circumflex vessel and balloon angioplasty was performed followed by stenting in the mid segment and stenting into the proximal into the left main segment. Following this, the artery was assessed both with the wire in place and wire removed. The total contrast used was 150 cc of Omnipaque dye. The radiation exposure included 14.3 minutes of fluoro time. The air kerma radiation was 1723. The DAP radiation was 11,748 microgray/sq. m. RESULTS: LEFT HEART CATHETERIZATION: Central aortic pressure recorded at 118/74 with a mean of 94. Left ventricular pressure 120 over left ventricular end diastolic pressure of 31. LEFT VENTRICULOGRAPHY: Performed in the DAS projection revealed severe inferior wall hypokinesis with a focal high mid anterolateral wall hypokinesis. There was preservation of the apical region in [id number] anterior wall as well as the proximal anterior wall. Overall ejection fraction estimated at 30% to 35%. CORONARY ARTERIOGRAPHY: A. Left coronary artery: 1. Left main - widely patent. 2. Left anterior descending artery - totally occluded at its ostium. 3. Circumflex artery - a nondominant vessel supplying multiple thin obtuse marginal branches. There was haziness area in the ostium of the circumflex into the left main with an area of luminal reduction in its worst view of 55% to 60%. The proximal portion of the circumflex artery appeared to have in-stent restenosis of 95%. This appeared to be on a bend area of the artery, past this point the mid- to-distal area was diffusely diseased and small in caliber supplying a low-lying posterior left ventricular branch. There was some collateralization seen poorly to the distal right coronary artery. B. Right coronary artery - not injected, already known to be totally occluded from multiple prior cardiac catheterizations BARR GRAFT TO LAD: Widely patent with good anastomosis, supplied the distal LAD and some retrograde filling to a short distance of the distal LAD. It did supply collateral blood flow to the distal right coronary artery through septal perforators into a mid diagonal branch through collaterals. Of note, all of the vessels in general were diffusely diseased and small in caliber. INTERVENTION INTO PROXIMAL CIRC TO LEFT MAIN: - treated with balloon angioplasty and placement of a 2.75 x 15 mm long Xience Alpine drug-eluting stent in the proximal circumflex, overlapped more proximally into the left main with a 3.0 x 12 mm long Xience Alpine drug- eluting stent. Successful reduction of critical 95% proximal lesion and hazy 55 % to 60% ostial lesion with transient noted of staining to the myocardium, which resolved by final placement of stents with no staining noted with CHINO 3 flow, no dissection noted, less than 5% narrowing seen. OVERALL ASSESSMENT: Successful intervention into proximal circumflex and ostial circumflex into left main as described above. 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 His cholesterol will be checked to make sure it is well within guideline range. We will gradually add back his medications including beta brenden and RILEY inhibitor as blood pressure tolerates given his left ventricular dysfunction. [id number]/[facility] #: [id number] [facility]
--- NOTE | 2018-03-24 13:42 | PN ---
Subjective Date of Service: 03/24/18 Interval History: HOSPITALIST PROGRESS NOTE Patient seen and examined at bedside. Care reviewed and d/w Inés Mccormick RN. Family History: Unchanged from Admission Social History: Unchanged from Admission Past Medical History: Unchanged from Admission Objective Active Medications: Acetaminophen (Tylenol Tab*) 650 mg PO Q6H PRN PRN Reason: PAIN Last Admin: 03/21/18 21:32 Dose: 650 mg Al Hydrox/Mg Hydrox/Simethicone (Maalox Plus*) 30 ml PO Q6H PRN PRN Reason: INDIGESTION Amitriptyline HCl (Elavil Tab*) 50 mg PO BEDTIME EVELIN Last Admin: 03/23/18 23:49 Dose: 50 mg Aspirin (Aspirin 81 Mg Chew Tab*) 81 mg PO DAILY EVELIN Last Admin: 03/24/18 10:13 Dose: 81 mg Atorvastatin Calcium (Lipitor*) 80 mg PO QPM EVELIN Last Admin: 03/23/18 23:49 Dose: 80 mg Dextrose (D50w Syringe 50 Ml*) 12.5 gm IV PUSH .FOR FS < 60 - SS PRN PRN Reason: FS < 60 Ezetimibe (Zetia Tab*) 10 mg PO QAM [facility] Last Admin: 03/24/18 10:12 Dose: 10 mg Fentanyl (Duragesic Patch 50 Mcg/Hr*) 50 mcg TRANSDERM Q72H EVELIN Last Admin: 03/23/18 23:35 Dose: 50 mcg Heparin Sodium (Porcine) (Heparin Vial(*)) 0 units IV .BOLUS PRN PRN Reason: PER HEPARIN DRIP PROTOCOL Last Admin: 03/21/18 21:56 Dose: 4,000 units Heparin Sodium (Porcine) (Heparin Flush Picc/Ml/Cvc(*)) 1 - 3 ml FLUSH 0600, 1800 EVELIN; Protocol Last Admin: 03/24/18 05:49 Dose: 3 ml Norepinephrine Bitartrate (Levophed 16 Mcg/Ml Premix Bag*) 4,000 mcg in 250 mls @ 18.75 mls/hr IV .INITIAL RATE EVELIN; Protocol Insulin Human Lispro (Humalog*) 0 units SUBCUT AC EVELIN; Protocol Last Admin: 03/24/18 12:45 Dose: 4 unit Metoclopramide HCl (Reglan Iv*) 10 mg IV SLOW PU Q6H EVELIN Last Admin: 03/24/18 12:46 Dose: 10 mg Metoprolol Tartrate (Lopressor Tab*) 12.5 mg PO Q8HR [facility] Last Admin: 03/24/18 10:12 Dose: 12.5 mg Morphine Sulfate (Morphine Vial*) 2 mg IV Q4H PRN PRN Reason: PAIN Last Admin: 03/23/18 23:00 Dose: 2 mg Nitroglycerin (Nitroglycerin Tab 0.4 Mg*) 0.4 mg SL Q5M PRN PRN Reason: ANGINA Omeprazole (Prilosec Cap*) 20 mg PO BID AC [facility] Last Admin: 03/24/18 06:55 Dose: 20 mg Ondansetron HCl (Zofran Inj*) 8 mg IV Q8H PRN PRN Reason: NAUSEA Last Admin: 03/23/18 05:12 Dose: 8 mg Pharmacy Profile Note (Fentanyl Patch Check Q Shift) 1 note N/A 0700,1900 [facility] Last Admin: 03/24/18 06:45 Dose: 1 note Prochlorperazine Edisylate (Compazine Inj*) 5 mg IV Q6H PRN PRN Reason: NAUSEA/VOMITING Last Admin: 03/23/18 08:42 Dose: 5 mg Ramipril (Altace Cap*) 5 mg PO 2100 [facility] Last Admin: 03/23/18 21:37 Dose: Not Given Ranolazine (Ranexa (Nf)) 1,000 mg PO BID [facility]; Protocol Last Admin: 03/24/18 10:13 Dose: 1,000 mg Terazosin HCl (Hytrin Cap*) 2 mg PO 2100 [facility] Last Admin: 03/23/18 21:37 Dose: Not Given Ticagrelor (Brilinta*) 90 mg PO BID [facility] Last Admin: 03/24/18 10:12 Dose: 90 mg Vital Signs - 8 hr 03/24/18 03/24/18 03/24/18 05:51 06:00 06:01 Temperature Pulse Rate 74 72 Respiratory 13 12 12 Rate Blood Pressure 87/61 (mmHg) O2 Sat by Pulse 98 93 Oximetry 03/24/18 03/24/18 03/24/18 06:29 06:30 07:00 Temperature Pulse Rate 72 70 Respiratory 26 22 10 Rate Blood Pressure 104/64 107/65 (mmHg) O2 Sat by Pulse 97 99 Oximetry 03/24/18 03/24/18 03/24/18 07:25 07:30 08:00 Temperature 97.6 F Pulse Rate 77 74 Respiratory 18 24 Rate Blood Pressure 112/70 116/76 (mmHg) O2 Sat by Pulse 97 94 Oximetry 03/24/18 03/24/18 03/24/18 08:30 09:00 10:00 Temperature Pulse Rate 77 79 75 Respiratory 29 29 30 Rate Blood Pressure 126/78 124/78 (mmHg) O2 Sat by Pulse 96 97 94 Oximetry 03/24/18 03/24/18 03/24/18 11:00 12:00 12:24 Temperature Pulse Rate 78 77 74 Respiratory 23 23 24 Rate Blood Pressure 105/66 (mmHg) O2 Sat by Pulse 93 92 92 Oximetry 03/24/18 03/24/18 12:30 12:53 Temperature Pulse Rate 73 Respiratory 28 18 Rate Blood Pressure 119/71 (mmHg) O2 Sat by Pulse 90 Oximetry Oxygen Devices in Use Now: None Appearance: Pleasant gentleman sitting up in bed in NAD. Eyes: No Scleral Icterus Ears/Nose/Mouth/Throat: Mucous Membranes Moist Neck: Trachea Midline Respiratory: Symmetrical Chest Expansion and Respiratory Effort, Clear to Auscultation Cardiovascular: RRR - Normal S1 and S2 Neurological: Alert and Oriented x 3, NL Muscle Strength and Tone Result Diagrams: 03/24/18 04:40 03/24/18 04:40 Assess/Plan/Problems-Billing Assessment: Mr. Kaye is a 47yo M with PMH of CAD s/p CABG/PCI, type 2 DM, diabetic gastroparesis, HLD, HTN, chronic back pain, depression, who presented to ED with c/o recurrent N/V, chest pain, found to have NSTEMI. - Patient Problems (1) NSTEMI (non-ST elevated myocardial infarction) Comment: - Presented with chest pain, troponin elevation up to 3.24. - Complex history including cardiac cath 10/2017 with stent placed to circumflex , CABG x 3 in 2008, stent to circumflex in 2014. - Cath 03/23/18 - stents placed to proximal circumflex and ostial circumflex into left main. - Continue Aspirin and Brilinta. - Resume low dose Metoprolol and monitor BP. - Continue Atorvastatin - LDL is 27. (2) Cardiogenic shock Comment: - With a component of hypovolemic shock secondary to dehydration - resolved. - Was on Levophed for a short period. - Continue to monitor in ICU and resumed Metoprolol and Lisinopril carefully. (3) Diabetes mellitus Comment: - A1c 9.8 in January. - Metformin on hold. - Continue Lispro SS. - Will refer to [facility] and Endocrinology as outpatient. (4) Chronic back pain Comment: - Continue Fentanyl patch. (5) DVT prophylaxis Comment: - SQ heparin. (6) Full code status Comment: Status and Disposition: Inpatient. Anticipate discharge to home when medically stable.
[2018-03-24] MEDS ORDERED: Metoprolol Tartrate TAB* 25 MG PO SCH (15:03)
[2018-03-24] MEDS ORDERED: Ramipril CAP* 5 MG PO SCH (15:04)
--- NOTE | 2018-03-24 15:12 | PN ---
Progress Note - Progress Note Date of Service: 03/24/18 - [facility] note Note: Pt seen and examined at bedside, pt reports feeling better, is pain free. Hypotension resolved. Active Medications Generic Name Dose Route Start Last Admin Trade Name Freq PRN Reason Stop Dose Admin Acetaminophen 650 mg 03/21/18 10:37 03/21/18 21:32 Tylenol Tab* PO 650 mg Q6H PRN Administration PAIN Al Hydrox/Mg Hydrox/Simethicone 30 ml 03/20/18 22:29 Maalox Plus* PO Q6H PRN INDIGESTION Amitriptyline HCl 50 mg 03/21/18 21:00 03/23/18 23:49 Elavil Tab* PO 50 mg BEDTIME EVELIN Administration Aspirin 81 mg 03/24/18 09:00 03/24/18 10:13 Aspirin 81 Mg Chew Tab* PO 81 mg DAILY EVELIN Administration Atorvastatin Calcium 80 mg 03/20/18 22:50 03/23/18 23:49 Lipitor* PO 80 mg QPM EVELIN Administration Dextrose 12.5 gm 03/20/18 23:00 D50w Syringe 50 Ml* IV PUSH .FOR FS < 60 - SS PRN FS < 60 Ezetimibe 10 mg 03/21/18 09:00 03/24/18 10:12 Zetia Tab* PO 10 mg QAM EVELIN Administration Fentanyl 50 mcg 03/20/18 23:00 03/23/18 23:35 Duragesic Patch 50 Mcg/Hr* TRANSDERM 50 mcg Q72H EVELIN Administration Heparin Sodium (Porcine) 1 - 3 ml 03/23/18 18:00 03/24/18 05:49 Heparin Flush Picc/Ml/Cvc(*) FLUSH 3 ml 0600,1800 EVELIN Administration Protocol Heparin Sodium (Porcine) 5,000 units 03/24/18 22:00 Heparin Vial(*) SUBCUT Q8HR [facility] Insulin Human Lispro 0 units 03/22/18 07:30 03/24/18 12:45 Humalog* SUBCUT 4 unit AC EVELIN Administration Protocol Metoclopramide HCl 10 mg 03/21/18 01:00 03/24/18 12:46 Reglan Iv* IV SLOW PU 10 mg Q6H EVELIN Administration Metoprolol Tartrate 12.5 mg 03/24/18 09:00 03/24/18 14:59 Lopressor Tab* PO Not Given Q8HR EVELIN Morphine Sulfate 2 mg 03/20/18 22:29 03/23/18 23:00 Morphine Vial* IV 2 mg Q4H PRN Administration PAIN Nitroglycerin 0.4 mg 03/23/18 14:53 Nitroglycerin Tab 0.4 Mg* SL Q5M PRN ANGINA Omeprazole 20 mg 03/21/18 07:30 03/24/18 06:55 Prilosec Cap* PO 20 mg BID AC EVELIN Administration Ondansetron HCl 8 mg 03/21/18 00:23 03/23/18 05:12 Zofran Inj* IV 8 mg Q8H PRN Administration NAUSEA Pharmacy Profile Note 1 note 03/21/18 07:00 03/24/18 06:45 Fentanyl Patch Check Q Shift N/A 1 note 0700,1900 [facility] Administration Prochlorperazine Edisylate 5 mg 03/21/18 00:23 03/23/18 08:42 Compazine Inj* IV 5 mg Q6H PRN Administration NAUSEA/VOMITING Ramipril 5 mg 03/21/18 21:00 03/23/18 21:37 Altace Cap* PO Not Given 2100 EVELIN Ranolazine 1,000 mg 03/21/18 09:00 03/24/18 10:13 Ranexa (Nf) PO 1,000 mg BID [facility] Administration Protocol Terazosin HCl 2 mg 03/21/18 21:00 03/23/18 21:37 Hytrin Cap* PO Not Given 2100 EVELIN Ticagrelor 90 mg 03/21/18 09:00 03/24/18 10:12 Brilinta* PO 90 mg BID EVELIN Administration Vital Signs Temp Pulse Resp BP Pulse Ox 97.6 F 71 31 99/68 94 03/24/18 07:25 03/24/18 14:53 03/24/18 14:53 03/24/18 14:53 03/24/18 14:53 O/E: Pt in NAD HEENT: PERRLA, NO JVD Lungs: Clear to auscultation b/l CVS: S1, S2+, regular Abd: obese, BS+ Ext: Normal ROM Neuro: Alert, awake, No focal defecits Laboratory Results - last 24 hr 03/23/18 03/24/18 03/24/18 17:29 00:56 04:40 WBC RBC Hgb Hct MCV MCH MCHC RDW Plt Count MPV Neut % (Auto) Lymph % (Auto) [place] % (Auto) Eos % (Auto) Baso % (Auto) Absolute Neuts (auto) Absolute Lymphs (auto) Absolute Monos (auto) Absolute Eos (auto) Absolute Basos (auto) Absolute Nucleated RBC Nucleated RBC % Sodium 136 Potassium 3.2 L Chloride 107 Carbon Dioxide 23 Anion Gap 6 BUN 7 Creatinine 0.80 Est GFR ( Amer) 124.8 Est GFR (Non-Af Amer) 103.2 BUN/Creatinine Ratio 8.8 Glucose 190 H POC Glucose (mg/dL) 199 H 163 H Calcium 7.8 L Magnesium 1.9 Total Bilirubin 0.50 AST 16 ALT 13 Alkaline Phosphatase 47 Total Protein 4.9 L Albumin 2.9 L Globulin 2.0 Albumin/Globulin Ratio 1.5 Triglycerides 146 Cholesterol 82 LDL Cholesterol 27 HDL Cholesterol 26.0 03/24/18 03/24/18 03/24/18 04:40 08:33 11:56 WBC 8.6 RBC 2.97 L Hgb 9.0 L Hct 26 L MCV 86 MCH 30 MCHC 35 RDW 13 Plt Count 137 L MPV 8.3 Neut % (Auto) 67.4 Lymph % (Auto) 22.6 L [place] % (Auto) 8.6 H Eos % (Auto) 1.0 Baso % (Auto) 0.4 Absolute Neuts (auto) 5.8 Absolute Lymphs (auto) 1.9 Absolute Monos (auto) 0.7 Absolute Eos (auto) 0.1 Absolute Basos (auto) 0 Absolute Nucleated RBC 0 Nucleated RBC % 0.1 Sodium Potassium Chloride Carbon Dioxide Anion Gap BUN Creatinine Est GFR ( Amer) Est GFR (Non-Af Amer) BUN/Creatinine Ratio Glucose POC Glucose (mg/dL) 182 H 212 H Calcium Magnesium Total Bilirubin AST ALT Alkaline Phosphatase Total Protein Albumin Globulin Albumin/Globulin Ratio Triglycerides Cholesterol LDL Cholesterol HDL Cholesterol I/R: 47 y o m with h/o DM, gastroparesis a/w NSTEMI, became hypotensive during hospital stay, s/p cardiac cath and stent placement Not hypotensive any more, not needing levophed Feeling better and ambulating Is pain free Cardiac meds to be adjusted No acute ICU issues Will sign off D/w Dr Klein and Dr Galicia
[2018-03-24] MEDS: Atorvastatin* 80 MG TAB PO SCH (17:14)
[2018-03-24] MEDS: Amitriptyline TAB* 50 MG PO SCH (20:35)
[2018-03-24] MEDS: Heparin VIAL(*) 5000 UNITS/ML VIAL (FIVE THOUSAND) SUBCUT SCH (20:35)
[2018-03-24] MEDS ORDERED: Melatonin 3 MG TAB PO ONE (21:41)
[2018-03-24] MEDS: Melatonin 3 MG TAB PO PRN (21:50)
[2018-03-24 23:15] LABS: EGFR Non-African American 107.8 (>60)
[2018-03-25] MEDS: Metoclopramide IV* 5 MG/ML 2 ML VIAL IV SLOW PU SCH ×4 (00:41→17:17)
[2018-03-25] MEDS: Metoprolol Tartrate TAB* 25 MG PO SCH ×3 (06:41→22:54)
[2018-03-25] MEDS: Heparin VIAL(*) 5000 UNITS/ML VIAL (FIVE THOUSAND) SUBCUT SCH ×3 (06:41→22:11)
[2018-03-25] MEDS: Omeprazole CAP* 20 MG PO SCH ×2 (06:41→17:17)
[2018-03-25 08:27] LABS: ABS Basophils 0 10^3/ul (0-0.2); ABS Eosinophils 0.1 10^3/ul (0-0.6); ABS Monocytes 0.8 10^3/ul (0-0.8); ABS Neutrophils 4.4 10^3/ul (1.5-7.7); ABS Nucleated RBC 0 10^3/ul; Eosinophil % 1.7 % (0-6); Hematocrit 26 % (42-52); Hemoglobin 9.2 g/dl (14.0-18.0); Lymphocyte % 26.8 % (25-47); Mean Corpuscular HGB Conc 35 g/dl (31-36); Mean Corpuscular Hemoglobin 31 pg (27-31); Mean Corpuscular Volume 87 fL (80-94); Mean Platelet Volume 8.6 um3 (7.4-10.4); Nucleated Red Blood Cells % 0.1; Platelet Count 151 10^3/ul (150-450); Red Blood Count 3.01 10^6/ul (4.00-5.40); Red Cell Distribution Width 13 % (10.5-15); White Blood Count 7.3 10^3/ul (3.5-10.8)
[2018-03-25 08:46] LABS: EGFR Non-African American 120.4 (>60)
[2018-03-25] MEDS: Insulin LISPRO* 1 UNITS UNIT SUBCUT SCH ×3 (09:14→17:17)
[2018-03-25] MEDS: Aspirin 81 mg CHEW TAB* 81 MG TAB.CHEW PO SCH (09:31)
[2018-03-25] MEDS: CMCS:Ranolazine (NF) 500 MG TAB PO SCH ×2 (09:31→21:59)
[2018-03-25] MEDS: Ticagrelor* 90 MG TAB PO SCH ×2 (09:31→22:00)
[2018-03-25] MEDS: Ezetimibe TAB* 10 MG PO SCH (09:32)
[2018-03-25] MEDS: fentaNYL Patch Check Q Shift 1 NOTE SCH ×2 (09:32→22:03)
[2018-03-25] MEDS: Potassium Chlor TAB* 20 MEQ TAB.ER PO SCH ×2 (13:47→22:01)
[2018-03-25] MEDS: Captopril TAB* 12.5 MG PO SCH ×2 (13:47→21:58)
--- NOTE | 2018-03-25 14:38 | PN ---
Subjective Date of Service: 03/25/18 Interval History: HOSPITALIST PROGRESS NOTE Patient seen and examined at bedside. Care reviewed and d/w Hussain Machuca RN. He feels better today. Denies CP, palpitations, dyspnea. No further episodes of N/V, appetite is preserved, tolerating diet well. Family History: Unchanged from Admission Social History: Unchanged from Admission Past Medical History: Unchanged from Admission Objective Active Medications: Acetaminophen (Tylenol Tab*) 650 mg PO Q6H PRN PRN Reason: PAIN Last Admin: 03/21/18 21:32 Dose: 650 mg Al Hydrox/Mg Hydrox/Simethicone (Maalox Plus*) 30 ml PO Q6H PRN PRN Reason: INDIGESTION Amitriptyline HCl (Elavil Tab*) 50 mg PO BEDTIME [facility] Last Admin: 03/24/18 20:35 Dose: 50 mg Aspirin (Aspirin 81 Mg Chew Tab*) 81 mg PO DAILY [facility] Last Admin: 03/25/18 09:31 Dose: 81 mg Atorvastatin Calcium (Lipitor*) 80 mg PO QPM [facility] Last Admin: 03/24/18 17:14 Dose: 80 mg Captopril (Capoten Tab*) 6.25 mg PO BID [facility] Last Admin: 03/25/18 13:47 Dose: 6.25 mg Dextrose (D50w Syringe 50 Ml*) 12.5 gm IV PUSH .FOR FS < 60 - SS PRN PRN Reason: FS < 60 Ezetimibe (Zetia Tab*) 10 mg PO QAM [facility] Last Admin: 03/25/18 09:32 Dose: 10 mg Fentanyl (Duragesic Patch 50 Mcg/Hr*) 50 mcg TRANSDERM Q72H [facility] Last Admin: 03/23/18 23:35 Dose: 50 mcg Heparin Sodium (Porcine) (Heparin Flush Picc/Ml/Cvc(*)) 1 - 3 ml FLUSH 0600, 1800 [facility]; Protocol Last Admin: 03/25/18 06:40 Dose: 3 ml Heparin Sodium (Porcine) (Heparin Vial(*)) 5,000 units SUBCUT Q8HR [facility] Last Admin: 03/25/18 13:48 Dose: 5,000 units Insulin Human Lispro (Humalog*) 0 units SUBCUT AC [facility]; Protocol Last Admin: 03/25/18 13:14 Dose: 2 unit Melatonin (Melatonin) 1 mg PO BEDTIME PRN PRN Reason: SLEEP Last Admin: 03/24/18 21:50 Dose: 1 mg Metoclopramide HCl (Reglan Iv*) 10 mg IV SLOW PU Q6H [facility] Last Admin: 03/25/18 13:46 Dose: Not Given Metoprolol Tartrate (Lopressor Tab*) 12.5 mg PO Q8HR [facility] Last Admin: 03/25/18 06:41 Dose: 12.5 mg Morphine Sulfate (Morphine Vial*) 2 mg IV Q4H PRN PRN Reason: PAIN Last Admin: 03/23/18 23:00 Dose: 2 mg Nitroglycerin (Nitroglycerin Tab 0.4 Mg*) 0.4 mg SL Q5M PRN PRN Reason: ANGINA Omeprazole (Prilosec Cap*) 20 mg PO BID AC [facility] Last Admin: 03/25/18 06:41 Dose: 20 mg Ondansetron HCl (Zofran Inj*) 8 mg IV Q8H PRN PRN Reason: NAUSEA Last Admin: 03/23/18 05:12 Dose: 8 mg Pharmacy Profile Note (Fentanyl Patch Check Q Shift) 1 note N/A 0700,1900 [facility] Last Admin: 03/25/18 09:32 Dose: 1 note Potassium Chloride (Klor Con Er Tab*) 40 meq PO BID [facility] Stop: 03/26/18 06:00 Last Admin: 03/25/18 13:47 Dose: 40 meq Prochlorperazine Edisylate (Compazine Inj*) 5 mg IV Q6H PRN PRN Reason: NAUSEA/VOMITING Last Admin: 03/23/18 08:42 Dose: 5 mg Ranolazine (Ranexa (Nf)) 1,000 mg PO BID [facility]; Protocol Last Admin: 03/25/18 09:31 Dose: 1,000 mg Ticagrelor (Brilinta*) 90 mg PO BID [facility] Last Admin: 03/25/18 09:31 Dose: 90 mg Vital Signs - 8 hr 03/25/18 03/25/18 03/25/18 07:00 07:31 08:00 Temperature Pulse Rate 73 73 63 Respiratory 24 23 18 Rate Blood Pressure 143/87 97/64 111/70 (mmHg) O2 Sat by Pulse 94 97 96 Oximetry 03/25/18 03/25/18 03/25/18 08:25 08:30 09:00 Temperature 98.3 F Pulse Rate 63 75 Respiratory 28 22 Rate Blood Pressure 114/75 127/77 (mmHg) O2 Sat by Pulse 87 98 Oximetry 03/25/18 03/25/18 03/25/18 09:30 10:00 10:31 Temperature Pulse Rate 64 77 62 Respiratory 26 30 17 Rate Blood Pressure 116/74 140/86 97/62 (mmHg) O2 Sat by Pulse 92 90 90 Oximetry 03/25/18 03/25/18 03/25/18 11:00 11:30 12:00 Temperature Pulse Rate 62 63 63 Respiratory 20 23 20 Rate Blood Pressure 96/65 108/69 100/62 (mmHg) O2 Sat by Pulse 93 96 97 Oximetry 03/25/18 03/25/18 03/25/18 12:30 13:00 13:01 Temperature Pulse Rate 69 67 67 Respiratory 25 17 21 Rate Blood Pressure 118/81 128/76 (mmHg) O2 Sat by Pulse 97 97 96 Oximetry Oxygen Devices in Use Now: None Appearance: Pleasant gentleman sitting up in bed in NAD. Eyes: No Scleral Icterus Ears/Nose/Mouth/Throat: Mucous Membranes Moist Neck: Trachea Midline Respiratory: Symmetrical Chest Expansion and Respiratory Effort, Clear to Auscultation Cardiovascular: RRR - Normal S1 and S2 Abdominal: NL Sounds; No Tenderness; No Distention Extremities: No Edema Neurological: Alert and Oriented x 3, NL Muscle Strength and Tone Result Diagrams: 03/25/18 08:12 03/25/18 08:12 Assess/Plan/Problems-Billing Assessment: Mr. Kaye is a 47yo M with PMH of CAD s/p CABG/PCI, type 2 DM, diabetic gastroparesis, HLD, HTN, chronic back pain, depression, who presented to ED with c/o recurrent N/V, chest pain, found to have NSTEMI. - Patient Problems (1) NSTEMI (non-ST elevated myocardial infarction) Comment: - Presented with chest pain, troponin elevation up to 3.24. - Complex history including cardiac cath 10/2017 with stent placed to circumflex , CABG x 3 in 2008, stent to circumflex in 2014. - Cath 03/23/18 - stents placed to proximal circumflex and ostial circumflex into left main. - Continue Aspirin and Brilinta. - Continue low dose Metoprolol and start Captopril as BP tolerates. - Continue Atorvastatin - LDL is 27. (2) Cardiogenic shock Comment: - With a component of hypovolemic shock secondary to dehydration - resolved. - Was on Levophed for a short period. (3) Anemia Comment: - H/H down to 9.11/14 - no signs of active bleeding, no hematoma to femoral site. - Check anemia w/u and continue to monitor. (4) Diabetes mellitus Comment: - A1c 9.8 in January. - Metformin on hold. - Continue Lispro SS. - Will refer to [facility] and Endocrinology as outpatient. (5) Chronic back pain Comment: - Continue Fentanyl patch. (6) DVT prophylaxis Comment: - SQ heparin. (7) Full code status Comment: Status and Disposition: Inpatient. Anticipate discharge to home when medically stable.
[2018-03-25] MEDS: Atorvastatin* 80 MG TAB PO SCH (17:17)
[2018-03-25] MEDS: Amitriptyline TAB* 50 MG PO SCH (22:01)
[2018-03-25] MEDS: Melatonin 3 MG TAB PO PRN (23:51)
[2018-03-26] MEDS: Metoclopramide IV* 5 MG/ML 2 ML VIAL IV SLOW PU SCH ×4 (00:36→19:19)
[2018-03-26] MEDS: Metoprolol Tartrate TAB* 25 MG PO SCH (06:07)
[2018-03-26] MEDS: Heparin VIAL(*) 5000 UNITS/ML VIAL (FIVE THOUSAND) SUBCUT SCH ×3 (06:10→21:19)
[2018-03-26] MEDS: fentaNYL Patch Check Q Shift 1 NOTE SCH ×2 (06:51→19:00)
[2018-03-26 06:53] LABS: ABS Basophils 0 10^3/ul (0-0.2); ABS Eosinophils 0.1 10^3/ul (0-0.6); ABS Lymphocytes 2.1 10^3/ul (1.0-4.8); ABS Monocytes 0.8 10^3/ul (0-0.8); ABS Neutrophils 5.3 10^3/ul (1.5-7.7); ABS Nucleated RBC 0 10^3/ul; Eosinophil % 1.7 % (0-6); Hematocrit 27 % (42-52); Hemoglobin 9.4 g/dl (14.0-18.0); Lymphocyte % 25.6 % (25-47); Mean Corpuscular HGB Conc 35 g/dl (31-36); Mean Corpuscular Hemoglobin 31 pg (27-31); Mean Corpuscular Volume 87 fL (80-94); Mean Platelet Volume 8.3 um3 (7.4-10.4); Nucleated Red Blood Cells % 0; Platelet Count 179 10^3/ul (150-450); Red Blood Count 3.09 10^6/ul (4.00-5.40); Red Cell Distribution Width 14 % (10.5-15); White Blood Count 8.4 10^3/ul (3.5-10.8)
[2018-03-26] MEDS ORDERED: MAGNESIUM SULFATE 2 GM IVPB ONE (06:57)
[2018-03-26 07:11] LABS: EGFR Non-African American 120.4 (>60)
[2018-03-26] MEDS: Omeprazole CAP* 20 MG PO SCH ×2 (07:28→16:40)
[2018-03-26] MEDS ORDERED: Magnesium Sulfate IV* 2 GM in NS 0.9% 100 ML* 100 ML IVPB ONE (08:00)
[2018-03-26] MEDS: Insulin LISPRO* 1 UNITS UNIT SUBCUT SCH ×3 (08:22→17:22)
[2018-03-26] MEDS: Ezetimibe TAB* 10 MG PO SCH (08:22)
[2018-03-26] MEDS: Aspirin 81 mg CHEW TAB* 81 MG TAB.CHEW PO SCH (08:22)
[2018-03-26] MEDS: Captopril TAB* 12.5 MG PO SCH ×2 (08:22→21:16)
[2018-03-26] MEDS: Ticagrelor* 90 MG TAB PO SCH ×2 (08:23→21:16)
[2018-03-26] MEDS: CMCS:Ranolazine (NF) 500 MG TAB PO SCH ×2 (08:23→21:18)
[2018-03-26] MEDS: Metoprolol Succinate XL TAB* 25 MG PO SCH ×2 (08:39→21:18)
--- NOTE | 2018-03-26 11:20 | RAD ---
INDICATION: PICC, edema and pain right upper extremity COMPARISON: There are no prior studies available for comparison. TECHNIQUE: Multiple real-time, color flow and Doppler tracings of the right upper extremity were obtained. FINDINGS: The axillary, brachial, basilic and cephalic veins all demonstrate normal compressibility, augmentation with compression and phasic response with respiration. A PICC line is visualized within the basilic, axillary and subclavian veins. The subclavian and internal jugular veins also demonstrate normal color flow imaging and phasic response with respiration. IMPRESSION: NO EVIDENCE FOR DEEP VENOUS THROMBOSIS.
[2018-03-26] MEDS: Ondansetron INJ* 2 MG/ML VIAL IV PRN (12:38)
--- NOTE | 2018-03-26 13:18 | PN ---
Subjective Date of Service: 03/26/18 Interval History: HOSPITALIST PROGRESS NOTE Patient seen and examined at bedside. Care reviewed and d/w Sridevi Dickinson RN. He feels better today. Denies chest paind, dyspnea, palpitations. C/o mild arm pain where PICC line located. Appetite is good, no N/V, tolerating diet well, 2 BMs yesterday, brown in color. Family History: Unchanged from Admission Social History: Unchanged from Admission Past Medical History: Unchanged from Admission Objective Active Medications: Acetaminophen (Tylenol Tab*) 650 mg PO Q6H PRN PRN Reason: PAIN Last Admin: 03/21/18 21:32 Dose: 650 mg Al Hydrox/Mg Hydrox/Simethicone (Maalox Plus*) 30 ml PO Q6H PRN PRN Reason: INDIGESTION Amitriptyline HCl (Elavil Tab*) 50 mg PO BEDTIME [facility] Last Admin: 03/25/18 22:01 Dose: 50 mg Aspirin (Aspirin 81 Mg Chew Tab*) 81 mg PO DAILY [facility] Last Admin: 03/26/18 08:22 Dose: 81 mg Atorvastatin Calcium (Lipitor*) 80 mg PO QPM [facility] Last Admin: 03/25/18 17:17 Dose: 80 mg Captopril (Capoten Tab*) 6.25 mg PO BID [facility] Last Admin: 03/26/18 08:22 Dose: 6.25 mg Dextrose (D50w Syringe 50 Ml*) 12.5 gm IV PUSH .FOR FS < 60 - SS PRN PRN Reason: FS < 60 Ezetimibe (Zetia Tab*) 10 mg PO QAM [facility] Last Admin: 03/26/18 08:22 Dose: 10 mg Fentanyl (Duragesic Patch 50 Mcg/Hr*) 50 mcg TRANSDERM Q72H [facility] Last Admin: 03/23/18 23:35 Dose: 50 mcg Heparin Sodium (Porcine) (Heparin Flush Picc/Ml/Cvc(*)) 1 - 3 ml FLUSH 0600, 1800 [facility]; Protocol Last Admin: 03/26/18 06:08 Dose: 3 ml Heparin Sodium (Porcine) (Heparin Vial(*)) 5,000 units SUBCUT Q8HR [facility] Last Admin: 03/26/18 06:10 Dose: 5,000 units Insulin Human Lispro (Humalog*) 0 units SUBCUT AC [facility]; Protocol Last Admin: 03/26/18 12:22 Dose: 2 unit Melatonin (Melatonin) 1 mg PO BEDTIME PRN PRN Reason: SLEEP Last Admin: 03/25/18 23:51 Dose: 1.5 mg Metoclopramide HCl (Reglan Iv*) 10 mg IV SLOW PU Q6H [facility] Last Admin: 03/26/18 12:38 Dose: 10 mg Metoprolol Succinate (Toprol Xl Tab*) 25 mg PO BID [facility] Last Admin: 03/26/18 08:39 Dose: 25 mg Morphine Sulfate (Morphine Vial*) 2 mg IV Q4H PRN PRN Reason: PAIN Last Admin: 03/23/18 23:00 Dose: 2 mg Nitroglycerin (Nitroglycerin Tab 0.4 Mg*) 0.4 mg SL Q5M PRN PRN Reason: ANGINA Omeprazole (Prilosec Cap*) 20 mg PO BID [facility] Last Admin: 03/26/18 07:28 Dose: 20 mg Ondansetron HCl (Zofran Inj*) 8 mg IV Q8H PRN PRN Reason: NAUSEA Last Admin: 03/26/18 12:38 Dose: 8 mg Pharmacy Profile Note (Fentanyl Patch Check Q Shift) 1 note N/A 0700,1900 [facility] Last Admin: 03/26/18 06:51 Dose: 1 note Prochlorperazine Edisylate (Compazine Inj*) 5 mg IV Q6H PRN PRN Reason: NAUSEA/VOMITING Last Admin: 03/23/18 08:42 Dose: 5 mg Ranolazine (Ranexa (Nf)) 1,000 mg PO BID [facility]; Protocol Last Admin: 03/26/18 08:23 Dose: 1,000 mg Ticagrelor (Brilinta*) 90 mg PO BID [facility] Last Admin: 03/26/18 08:23 Dose: 90 mg Vital Signs - 8 hr 03/26/18 03/26/18 03/26/18 05:30 06:00 06:30 Temperature 98.2 F Pulse Rate 70 72 69 Respiratory 26 29 23 Rate Blood Pressure 120/82 138/85 119/73 (mmHg) O2 Sat by Pulse 97 96 97 Oximetry 03/26/18 03/26/18 03/26/18 07:00 07:30 07:45 Temperature 98.1 F Pulse Rate 68 69 Respiratory 10 14 Rate Blood Pressure 115/78 116/73 (mmHg) O2 Sat by Pulse 98 98 Oximetry 03/26/18 03/26/18 03/26/18 08:00 08:30 09:00 Temperature Pulse Rate 65 66 65 Respiratory 23 15 20 Rate Blood Pressure 107/70 108/71 119/68 (mmHg) O2 Sat by Pulse 97 98 97 Oximetry 03/26/18 03/26/18 03/26/18 09:30 10:00 10:30 Temperature Pulse Rate 61 60 60 Respiratory 14 21 19 Rate Blood Pressure 99/64 97/60 96/62 (mmHg) O2 Sat by Pulse 96 96 93 Oximetry 03/26/18 03/26/18 11:25 11:30 Temperature 97.3 F Pulse Rate 66 Respiratory 18 18 Rate Blood Pressure 103/66 (mmHg) O2 Sat by Pulse 100 Oximetry Oxygen Devices in Use Now: None Appearance: Pleasant gentleman sitting up in bed in NAD. Eyes: No Scleral Icterus Ears/Nose/Mouth/Throat: Mucous Membranes Moist Neck: Trachea Midline Respiratory: Symmetrical Chest Expansion and Respiratory Effort, Clear to Auscultation Cardiovascular: RRR - Normal S1 and S2 Extremities: No Edema, - - right groin with no hematoma or ecchymosis Neurological: Alert and Oriented x 3, NL Muscle Strength and Tone Result Diagrams: 03/26/18 06:20 03/26/18 06:20 Assess/Plan/Problems-Billing Assessment: Mr. Kaye is a 47yo M with PMH of CAD s/p CABG/PCI, type 2 DM, diabetic gastroparesis, HLD, HTN, chronic back pain, depression, who presented to ED with c/o recurrent N/V, chest pain, found to have NSTEMI. - Patient Problems (1) NSTEMI (non-ST elevated myocardial infarction) Comment: - Presented with chest pain, troponin elevation up to 3.24. - Complex history including cardiac cath 10/2017 with stent placed to circumflex , CABG x 3 in 2008, stent to circumflex in 2014. - Cath 03/23/18 - stents placed to proximal circumflex and ostial circumflex into left main. - Continue Aspirin and Brilinta. - Change to Metoprolol succinate and increase dose to 25mg BID. - Continue Captopril as BP tolerates. - Continue Atorvastatin - LDL is 27. - Transfer to Telemetry. - Follow up echo tomorrow to assess LV function. (2) Cardiogenic shock Comment: - With a component of hypovolemic shock secondary to dehydration - resolved. - Was on Levophed for a short period. (3) Anemia Comment: - H/H down to 9.11/14 - no signs of active bleeding, no hematoma to femoral site. - Anemia w/u shows low iron with borderline ferritin and B12 - will replete. - Check stool for occult blood. (4) Diabetes mellitus Comment: - A1c 9.8 in January. - Metformin on hold. - Continue Lispro SS. - Will refer to [facility] and Endocrinology as outpatient. (5) Chronic back pain Comment: - Continue Fentanyl patch. (6) DVT prophylaxis Comment: - SQ heparin. (7) Full code status Comment: Status and Disposition: Inpatient. Anticipate discharge to home when medically stable.
[2018-03-26] MEDS: Ferrous Sulfate TAB* 325 MG PO SCH (13:39)
[2018-03-26] MEDS: Cyanocobalamin TAB* 500 MCG PO SCH (13:40)
[2018-03-26] MEDS: Atorvastatin* 80 MG TAB PO SCH (17:22)
[2018-03-26] MEDS: Amitriptyline TAB* 50 MG PO SCH (21:16)
[2018-03-26] MEDS: fentaNYL PATCH 50 MCG/HR TRANSDERM SCH (23:27)
[2018-03-27] MEDS: Metoclopramide IV* 5 MG/ML 2 ML VIAL IV SLOW PU SCH ×2 (00:36→07:53)
[2018-03-27] MEDS: Melatonin 3 MG TAB PO PRN (00:47)
[2018-03-27] MEDS: Morphine VIAL* 4 MG/ML VIAL (1 ml vial) IV PRN (01:40)
[2018-03-27] MEDS: Heparin VIAL(*) 5000 UNITS/ML VIAL (FIVE THOUSAND) SUBCUT SCH ×2 (05:53→13:57)
[2018-03-27 06:42] LABS: EGFR Non-African American 112.9 (>60)
[2018-03-27] MEDS: fentaNYL Patch Check Q Shift 1 NOTE SCH (07:07)
[2018-03-27] MEDS: Omeprazole CAP* 20 MG PO SCH (07:53)
[2018-03-27] MEDS: Insulin LISPRO* 1 UNITS UNIT SUBCUT SCH ×2 (08:22→11:41)
[2018-03-27] MEDS ORDERED: Perflutren Lipid Microsphere* 3 ML VIAL ONE (08:23)
[2018-03-27] MEDS: Aspirin 81 mg CHEW TAB* 81 MG TAB.CHEW PO SCH (08:48)
[2018-03-27] MEDS: Cyanocobalamin TAB* 500 MCG PO SCH (08:48)
[2018-03-27] MEDS: Captopril TAB* 12.5 MG PO SCH (08:49)
[2018-03-27] MEDS: Ferrous Sulfate TAB* 325 MG PO SCH (08:50)
[2018-03-27] MEDS: Ticagrelor* 90 MG TAB PO SCH (08:50)
[2018-03-27] MEDS: Metoprolol Succinate XL TAB* 25 MG PO SCH (08:50)
[2018-03-27] MEDS: CMCS:Ranolazine (NF) 500 MG TAB PO SCH (08:51)
--- NOTE | 2018-03-27 09:51 | ECHO ---
Patient: GWYN MIRELES [facility] Rec#: [id number] : 1970 Date: 03/27/2018 Age: 47y Height: 177.8 cm / 70.0 in Weight: 92.99 kg / 204.9 lbs Sex: M BSA: 2.11 Room#: 451 Admit Date#: 03/20/2018 Type: Inpatient Referring: Kalen Galicia MD Reading: Kalen Galicia MD Care Rep: Jossie Kaiser RDCS CC: Tito Saunders MD Transthoracic Echocardiogram Indication: S/P PCI, NSTEMI BP: 126/70 HR: 68 Rhythm: NSR with PVCs Findings History: CAD s/p CABG, s/p PCI, HLD, HTN, DM, murmur. This is a LIMITED study to re-evaluate LV systolic function and the aortic valve. Technical Comments: The study is technically difficult. Left Ventricle: The left ventricular chamber size is normal. There are multiple regional wall motion abnormalities. The inferior wall is akinetic. The lower and proximal upper interventricular septum is akinetic. There is moderately decreased left ventricular systolic function.Overall LVEF is estimated at 35% (perhaps 35-40% in certain views). Right Ventricle: The right ventricular cavity size is normal. The right ventricular global systolic function is mildly reduced. Aortic Valve: The aortic valve is trileaflet. Mild aortic leaflet calcification is visualized. Systolic excursion of the aortic valve cusps is reduced. There is a trace of aortic regurgitation. There is mild to moderate aortic stenosis. The mean gradient of the aortic valve is 8.82 mmHg. The peak instantaneous gradient of the aortic valve is 16.47 mmHg. The aortic valve area, by peak velocities, is calculated at 1.2 cm2. The aortic valve area, by VTI's, is calculated at 1.3 cm2. Pericardium: There is no significant pericardial effusion. Contrast: Definity was used to optimize study. 4 mL of diluted Definity was utilized. Intravenous contrast was used to enhance endocardial border definition. Conclusions The left ventricular chamber size is normal. There are multiple regional wall motion abnormalities. The inferior wall is akinetic. The lower and proximal upper interventricular septum is akinetic. There is moderately decreased left ventricular systolic function.Overall LVEF is estimated at 35% (perhaps 35-40% in certain views). There is mild to moderate aortic stenosis. The aortic valve area, by VTI's, is calculated at 1.3 cm2. Compared to report of prior study from 03/23/2018 there is better wall motion to the mid to low posterior wall. Measurements Name Value Normal Range LV EDV SP 4CH (MOD) 156.38 ml - LV ESV SP 4CH (MOD) 95.65 ml - EF SP 4CH (MOD) 38.84 % - LV EDV SP 2CH (MOD) 143.08 ml - LV ESV SP 2CH (MOD) 92.96 ml - EF SP 2CH (MOD) 35.03 % - LV EDV BP 151.12 ml - LV ESV BP 94.29 ml - BP EF (MOD) 37.61 % - LV EDV BP index 71.64 ml/m2 - LV ESV BP index 44.7 ml/m2 - Name Value Normal Range AV Vmax 2 m/sec - AV VTI 42.8 cm - AV peak gradient 16.47 mmHg - AV mean gradient 8.82 mmHg - LVOT diameter 2.1 cm - LVOT Vmax 0.7 m/sec - LVOT VTI 16.6 cm - LVOT peak gradient 2.1 mmHg - LVOT mean gradient 1.2 mmHg - DOI (VTI) 0.39 ratio - DHARA (continuity Vmax) 1.2 cm2 - DHARA (continuity VTI) 1.3 cm2 -
[2018-03-27] MEDS: Ezetimibe TAB* 10 MG PO SCH (09:57)
[2018-03-27] MEDS ORDERED: Spironolactone TAB* 25 MG PO SCH (10:45)
[2018-03-27] MEDS ORDERED: Metoclopramide TAB* 10 MG PO PRN (11:12)
[2018-03-27 11:18] VITALS: BP 122/72
--- NOTE | 2018-03-27 11:21 | PN ---
Subjective Date of Service: 03/27/18 Interval History: Patient seen and examined at bedside. Denies fever, chills, shortness of breath , chest discomfort, N/V/D. Pt states that he is feeling well and is anxious for discharge to home today if possible. Pt states that he is ambulating without return of his chest pain. Tele: Sinus rhythm, rate 60-70's Family History: Unchanged from Admission Social History: Unchanged from Admission Past Medical History: Unchanged from Admission Objective Active Medications: Acetaminophen (Tylenol Tab*) 650 mg PO Q6H PRN Reason: PAIN Al Hydrox/Mg Hydrox/Simethicone (Maalox Plus*) 30 ml PO Q6H PRN Reason: INDIGESTION Amitriptyline HCl (Elavil Tab*) 50 mg PO BEDTIME [facility] Aspirin (Aspirin 81 Mg Chew Tab*) 81 mg PO DAILY [facility] Atorvastatin Calcium (Lipitor*) 80 mg PO QPM [facility] Cyanocobalamin (Vitamin B12 Tab*) 1,000 mcg PO DAILY [facility] Dextrose (D50w Syringe 50 Ml*) 12.5 gm IV PUSH .FOR FS < 60 - SS PRN Reason: FS < 60 Ezetimibe (Zetia Tab*) 10 mg PO QAM [facility] Fentanyl (Duragesic Patch 50 Mcg/Hr*) 50 mcg TRANSDERM Q72H [facility] Ferrous Sulfate (Ferrous Sulfate Tab*) 325 mg PO DAILY [facility] Heparin Sodium (Porcine) (Heparin Flush Picc/Ml/Cvc(*)) 1 - 3 ml FLUSH 0600, 1800 [facility]; Protocol Heparin Sodium (Porcine) (Heparin Vial(*)) 5,000 units SUBCUT Q8HR [facility] Insulin Human Lispro (Humalog*) 0 units SUBCUT AC [facility]; Protocol Melatonin (Melatonin) 1 mg PO BEDTIME PRN Reason: SLEEP Metoclopramide HCl (Reglan Iv*) 10 mg IV SLOW PU Q6H [facility] Metoclopramide HCl (Reglan Tab*) 10 mg PO Q6H PRN Reason: NAUSEA/VOMITING Metoprolol Succinate (Toprol Xl Tab*) 25 mg PO BID [facility] Morphine Sulfate (Morphine Vial*) 2 mg IV Q4H PRN Reason: PAIN Nitroglycerin (Nitroglycerin Tab 0.4 Mg*) 0.4 mg SL Q5M PRN Reason: ANGINA Omeprazole (Prilosec Cap*) 20 mg PO BID AC [facility] Ondansetron HCl (Zofran Inj*) 8 mg IV Q8H PRN Reason: NAUSEA Pharmacy Profile Note (Fentanyl Patch Check Q Shift) 1 note N/A 0700,1900 [facility] Prochlorperazine Edisylate (Compazine Inj*) 5 mg IV Q6H PRN Reason: NAUSEA/ VOMITING Ramipril (Altace Cap*) 5 mg PO 1700 [facility] Ranolazine (Ranexa (Nf)) 1,000 mg PO BID [facility]; Protocol Spironolactone (Aldactone Tab*) 25 mg PO DAILY [facility] Ticagrelor (Brilinta*) 90 mg PO BID [facility] Vital Signs - 8 hr 03/27/18 03/27/18 03/27/18 03:32 03:45 07:56 Temperature 98.1 F 97.5 F Pulse Rate 64 70 Respiratory 14 16 16 Rate Blood Pressure 126/70 134/86 (mmHg) O2 Sat by Pulse 98 98 Oximetry 03/27/18 08:00 Temperature Pulse Rate Respiratory 16 Rate Blood Pressure (mmHg) O2 Sat by Pulse 98 Oximetry Oxygen Devices in Use Now: None Appearance: NAD, sitting up in bed Ears/Nose/Mouth/Throat: Mucous Membranes Moist Respiratory: Symmetrical Chest Expansion and Respiratory Effort, Clear to Auscultation Cardiovascular: NL Sounds; No Murmurs; No JVD, RRR Abdominal: NL Sounds; No Tenderness; No Distention Extremities: No Edema Skin: No Rash or Ulcers Neurological: Alert and Oriented x 3, NL Muscle Strength and Tone Lines/Tubes/Other Access: Clean, Dry and Intact Peripheral IV - site benign, Clean, Dry and Intact PICC Line - site benign Nutrition: Taking PO's Result Diagrams: 03/26/18 06:20 03/27/18 05:45 Additional Lab and Data: . Microbiology and Other Data: . Assess/Plan/Problems-Billing Assessment: Mr. Kaye is a 47yo M with PMH of CAD s/p CABG/PCI, type 2 DM, diabetic gastroparesis, HLD, HTN, chronic back pain, depression, who presented to ED with c/o recurrent N/V, chest pain, found to have NSTEMI. - Patient Problems (1) NSTEMI (non-ST elevated myocardial infarction) Code(s): I21.4 - NON-ST ELEVATION (NSTEMI) MYOCARDIAL INFARCTION SNOMED Code(s ): 123381562 Comment: - Presented with chest pain, troponin elevation peaked at 3.24 - Complex cardiac history including cardiac cath 10/2017 with stent placed to circumflex, CABG x 3 in 2008, stent to circumflex in 2014 - Cardiac Cath on 03/23/18 with stents placed to proximal circumflex and ostial circumflex into left main - Follow-up echo shows improvement in EF 35-40% (was 35-30%) - Continue Atorvastatin (LDL is 27), Aspirin, Brilinta, and Metoprolol succinate - Resume Altace (2) Cardiogenic shock Code(s): R57.0 - CARDIOGENIC SHOCK SNOMED Code(s): 94194721 Comment: - Resolved - With a component of hypovolemic shock secondary to dehydration - Required Levophed for a short period of time (3) Anemia Code(s): D64.9 - ANEMIA, UNSPECIFIED SNOMED Code(s): 670916731 Comment: - H/H down to 9.11/14 - no signs of active bleeding, no hematoma to femoral site. - Anemia w/u shows low iron with borderline ferritin and B12 - Continue vitamin B12 and ferrous sulfate (4) Diabetes mellitus Code(s): E11.9 - TYPE 2 DIABETES MELLITUS WITHOUT COMPLICATIONS SNOMED Code(s) : 99935830 Comment: - Glucose 120-220's - HgA1c 9.8 in January - Resume Metformin at discharge - Will refer to [facility] and Endocrinology as outpatient (5) Hypertension Code(s): I10 - ESSENTIAL (PRIMARY) HYPERTENSION SNOMED Code(s): 90069475 Comment: - Normotensive, SBP 120-130's - Continue metoprolol and resume ramipril (6) Chronic back pain Code(s): M54.9 - DORSALGIA, UNSPECIFIED; G89.29 - OTHER CHRONIC PAIN SNOMED Code(s): 547584744 Comment: - Continue Fentanyl patch (7) Dyslipidemia Code(s): E78.5 - HYPERLIPIDEMIA, UNSPECIFIED SNOMED Code(s): 591158355 Comment: - Continue atorvastatin and zetia (8) Gastroparesis Code(s): K31.84 - GASTROPARESIS SNOMED Code(s): 189654643 Comment: - Denies nausea, vomiting, or abdominal pain - Continue amitriptyline and metoclopramide (9) Hx of Reyes's palsy Code(s): Z86.69 - PERSONAL HISTORY OF DIS OF THE NERVOUS SYS AND SENSE ORGANS SNOMED Code(s): 352787201 Comment: - Last episode March 2014. (10) DVT prophylaxis Code(s): PKI1884 - SNOMED Code(s): 887805186 Comment: - SQ heparin (11) Full code status Code(s): Z78.9 - OTHER SPECIFIED HEALTH STATUS SNOMED Code(s): 873470498 Status and Disposition: Inpatient. Discharge to home when medically stable, possibly later today if ok with cardiology.
[2018-03-27] MEDS ORDERED: Ramipril CAP* 5 MG PO SCH (17:00)
--- NOTE | 2018-03-28 11:18 | DS ---
CC: Dr. Kalen Galicia; Dr. Santos Oswald; Dr. Tito Saunders; [facility] * DISCHARGE SUMMARY: DATE OF ADMISSION: 03/20/18 DATE OF DISCHARGE: 03/27/18 ATTENDING PHYSICIAN: Dr. Maki De Souza * (dictated by Jossie Rollins NP) PRIMARY CARE PROVIDER: Dr. Tito Saunders. PRIMARY CADD TECHNICIAN: Dr. Santos Oswald. PRIMARY DIAGNOSES: 1. Non-ST elevation myocardial infarction. 2. Status post cardiac catheterization with stenting into the proximal circumflex and ostial circumflex into left main. 3. Cardiogenic shock with component of hypovolemic shock secondary to dehydration, resolved. 4. Anemia. 5. Ischemic cardiomyopathy, with EF 35-40% SECONDARY DIAGNOSES: 1. Diabetes mellitus, uncontrolled. 2. Hypertension. 3. Chronic back pain. 4. Dyslipidemia. 5. Gastroparesis, secondary to Diabetes Mellitus. 6. History of Reyes's palsy. 7. Neuropathy, seconadary to Diabetes Mellitus. CONSULTATIONS WHILE IN THE HOSPITAL: 1. Dr. Santos Oswald with Cardiology. 2. Dr. Kalen Galicia with Interventional Cardiology. DISCHARGE MEDICATIONS: [place]roke Medication: 1. Acetaminophen 650 mg oral every 6 hours as needed for pain. 2. Vitamin B12 1000 mcg oral daily. 3. Ferrous sulfate 325 mg oral daily. 4. Spironolactone 25 mg oral daily. Continued Home Medications: 1. Fentanyl patch 50 mcg transdermal every 72 hours. 2. Nitroglycerin 0.4 mg sublingual every 5 minutes as needed for chest pain. 3. Nitroglycerin 0.4 mg patch, one patch transdermal daily as needed for chest pain. 4. Terazosin 2 mg oral every evening. 5. Ramipril 5 mg oral every evening. The patient has been asked to check his blood pressure at home and if his systolic blood pressure is greater than 110, he will continue 5 mg daily; if it is below 110, he will take 2.5 mg at 5 p.m. daily. 6. Zetia 10 mg oral daily. 7. Metformin 500 mg oral twice daily. 8. Brilinta 90 mg oral twice daily. 9. Aspirin 81 mg oral daily. 10. Protonix 40 mg oral every evening. 11. Omeprazole 20 mg oral twice daily. 12. Atorvastatin 80 mg oral daily. 13. Ranexa 1000 mg oral twice daily. 14. Reglan 10 mg oral every 6 hours as needed for nausea. 15. Compazine 5 mg oral every 6 hours as needed for nausea. 16. Elavil 500 mg oral daily at bedtime. 17. Milk of magnesia 30 mL oral every 4 hours as needed for constipation. 18. Zofran 8 mg oral twice daily as needed for nausea. Changed Home Medications: 1. Metoprolol succinate decreased from 25 mg oral in the morning and 50 mg oral in the evening to 25 mg oral twice daily. HISTORY OF PRESENT ILLNESS/HOSPITAL COURSE: Mr. Kaye is a 47-year-old male with past medical history significant for gastroparesis, cyclic vomiting syndrome, diabetes mellitus type 2, neuropathy, hyperlipidemia, coronary artery disease, status post coronary artery bypass graft and stenting, hypertension, chronic pain, GERD with history of gastritis and GI bleed, depression, and insomnia, who last underwent cardiac catheterization in October of 2017, at which time he received a stent. Patient had been in his usual state of health when he developed a sudden onset of mid sternal sharp chest pain that awoke him from sleeping. The pain was radiating to his neck. He felt as if somebody had hit him in the chest with a hammer. He took nitroglycerin x5 at home with no relief and placed a nitro patch as well with no relief. There was some associated shortness of breath with the chest pain. The patient reported that after the nitro his chest pain in fact became worse and nothing was making it better and nothing was making it worse, so he presented to the emergency room for further evaluation. While in the emergency room, the patient was nauseated and vomited once. He reported similar episodes with his previous chest pain where he had needed interventional cardiology and stenting. The patient had routine lab work showing a troponin of 0.15, the day prior he had a troponin of 0.01. He had an EKG showing sinus rhythm with rate of 96. Chest x-ray with mild interstitial edema and postoperative changes. Given his significant coronary artery disease, a history of CABG and stenting and his elevated troponin, the hospitalists were asked to evaluate the patient for admission. While in the hospital, the patient's troponin peaked at 3.24. He was seen in consultation by Dr. Santos Oswald with Cardiology. His initial echocardiogram had showed EF of 30% to 35%. Due to his complex cardiac history and elevated troponin, he was taken to the cardiac cathode builder on 03/23 where he underwent stenting to his proximal circumflex and ostial circumflex into the left main. He had repeat echo on the day of discharge showing an EF of 35% to 40%. He was gradually resumed on most of his home medications. He was started on Captopril and was changed to Altace, which is his usual home medication. He also had a component of cardiogenic shock during his stay prior to his cardiac catheterization with a component of hypovolemic shock secondary to dehydration. The patient required Levophed for a short period of time. This resolved. His lipid profile was within normal limits so his statins were not adjusted. His metoprolol dose was decreased due to his hypotension and was adjusted during his stay. He was noted to be anemic with no signs of active bleeding or hematoma in his femoral site. His labs showed borderline ferritin and B12. He was started on vitamin B12 and ferrous sulfate. The patient's hemoglobin A1c was 9.8 in January with glucoses in the 120s to 220s. During his hospitalization, he was placed on lispro sliding scale with plans to resume his metformin at discharge. He was mostly normotensive in the latter half of his hospitalization with well continued on RILEY inhibitor and metoprolol. Patient was continued on fentanyl patches for his chronic back pain. He denied any nausea, vomiting, or abdominal pain with his gastroparesis during his stay. He was continued on amitriptyline and Reglan. Patient was doing well. He was ambulating in the hallways with no complaints of recurrent chest pain. He was seen by Dr. Galicia and felt that he could be discharged today. Mr. Kaye is stable for discharge today. Vital signs are as follows: Temperature 97.9, heart rate 65, respiratory rate 16, O2 sat 100% on room air, blood pressure 122/72. DISCHARGE PLAN: Mr. Kaye will be discharged to home. Activity as tolerated. He should be on a heart healthy diet. In regards to his non-ST elevated myocardial infarction, he has been continued on his Brilinta, atorvastatin, Zetia, aspirin. His metoprolol succinate is currently at 25 mg oral twice daily. If able, he could be resumed on his previous dosing and I would slowly titrate up. He has also been continued on his Altace for his anemia. He has been continued on vitamin B12 and ferrous sulfate. I recommend continuing to follow his labs. In regards to his diabetes, it appears to be uncontrolled. He has been resumed on his metformin at discharge. He has been referred to the [facility]. Patient should also be seen by Endocrinology outpatient and he reports that he is working on getting into Dr. Jimenez's office for endocrinology, please assist the patient and making sure he gets setup with coding coordinator. For his back pain, he has been continued on his fentanyl. For his dyslipidemia, he has been continued on atorvastatin and Zetia. For his gastroparesis secondary to his diabetes mellitus, he has been continued on amitriptyline and Reglan as needed. Patient has followup appointment with Dr. Santos Oswald with Cardiology on 04/05/18 at 1:15 p.m. Additionally, he has a followup appointment with his primary care provider, Dr. Tito Saunders on 04/03/18 at 8:30 a.m. Patient has been provided with written discharge instructions, status post his cardiac catheterization. The patient has been instructed to check his blood pressure at home tonight. If his systolic blood pressure is greater than 110, he should resume his Altace 5 mg daily. If it his below 110, he has been provided with a 5-day supply of 2.5 mg daily and should contact Dr. Oswald if he needs more. He should have a followup basic metabolic panel on 04/04/18 prior to his followup with Dr. Oswald. Patient should return to the emergency room for any chest pain, shortness of breath. This is a summarized report of a complex medical history and hospital stay. For further details, please see the entire medical record. TIME SPENT: Time for this discharge was approximately 50 minutes; greater than half of that was spent with the patient discussing discharge plans and instructions. CONDITION ON DISCHARGE: Stable. Reviewed by JAM MARIE 03/29/18 [id number]/[facility] #: [id number] HENRY
== END 2018-03-27 15:24 | disposition home or self-care (01) | DRG 246 ==
LOC: ED 19:56 → ICU 22:29 → MEDTELE 03-22 14:48 → ICU 03-23 08:36 → MEDTELE 03-26 08:11
PROVIDERS: ADMIT Internal Medicine; ATTEND Internal Medicine
PROC: B21F1ZZ Fluoroscopy of Other Bypass Graft using Low Osmolar Contrast (ICD-10-PCS; 2018-03-23)
PROC: B2111ZZ Fluoroscopy of Multiple Coronary Arteries using Low Osmolar Contrast (ICD-10-PCS; 2018-03-23)
PROC: B2151ZZ Fluoroscopy of Left Heart using Low Osmolar Contrast (ICD-10-PCS; 2018-03-23)
PROC: 4A023N7 Measurement of Cardiac Sampling and Pressure, Left Heart, Percutaneous Approach (ICD-10-PCS; 2018-03-23)
PROC: 05H533Z Insertion of Infusion Device into Right Subclavian Vein, Percutaneous Approach (ICD-10-PCS; 2018-03-23)
PROC: 3E033XZ Introduction of Vasopressor into Peripheral Vein, Percutaneous Approach (ICD-10-PCS; 2018-03-23)
PROC: 03HY32Z Insertion of Monitoring Device into Upper Artery, Percutaneous Approach (ICD-10-PCS; 2018-03-23)
PROC: 4A133B1 Monitoring of Arterial Pressure, Peripheral, Percutaneous Approach (ICD-10-PCS; 2018-03-23)
PROC: 027035Z Dilation of Coronary Artery, One Artery with Two Drug-eluting Intraluminal Devices, Percutaneous Approach (ICD-10-PCS; principal; 2018-03-23 13:15)
DX: T82.855A Stenosis of coronary artery stent, initial encounter (principal); I21.4 Non-ST elevation (NSTEMI) myocardial infarction; R57.0 Cardiogenic shock; R57.1 Hypovolemic shock; J90 Pleural effusion, not elsewhere classified; I25.10 Atherosclerotic heart disease of native coronary artery without angina pectoris; I10 Essential (primary) hypertension; E78.5 Hyperlipidemia, unspecified; K21.9 Gastro-esophageal reflux disease without esophagitis; K31.84 Gastroparesis; M16.0 Bilateral primary osteoarthritis of hip; M47.9 Spondylosis, unspecified; Y71.2 Prosthetic and other implants, materials and accessory cardiovascular devices associated with adverse incidents; G89.29 Other chronic pain; G43.909 Migraine, unspecified, not intractable, without status migrainosus; F31.9 Bipolar disorder, unspecified; D64.9 Anemia, unspecified; K31.89 Other diseases of stomach and duodenum; E11.43 Type 2 diabetes mellitus with diabetic autonomic (poly)neuropathy; E11.40 Type 2 diabetes mellitus with diabetic neuropathy, unspecified; G47.00 Insomnia, unspecified; E66.9 Obesity, unspecified; E87.6 Hypokalemia; E83.42 Hypomagnesemia; R00.8 Other abnormalities of heart beat; F41.0 Panic disorder [episodic paroxysmal anxiety]; Z79.02 Long term (current) use of antithrombotics/antiplatelets; Z79.82 Long term (current) use of aspirin; Z79.84 Long term (current) use of oral hypoglycemic drugs; Z86.69 Personal history of other diseases of the nervous system and sense organs; Z83.3 Family history of diabetes mellitus; Z95.5 Presence of coronary angioplasty implant and graft; Z91.048 Other nonmedicinal substance allergy status; Z87.891 Personal history of nicotine dependence; Z88.1 Allergy status to other antibiotic agents; Z91.041 Radiographic dye allergy status; I25.2 Old myocardial infarction; Z90.49 Acquired absence of other specified parts of digestive tract; Z86.19 Personal history of other infectious and parasitic diseases; Z80.0 Family history of malignant neoplasm of digestive organs; Z82.49 Family history of ischemic heart disease and other diseases of the circulatory system; Z72.89 Other problems related to lifestyle; Z68.29 Body mass index [BMI] 29.0-29.9, adult; Y92.009 Unspecified place in unspecified non-institutional (private) residence as the place of occurrence of the external cause
CPT/HCPCS: 36415; 71045; 76700; 80048; 80053; 80061; 82550; 82553; 82607; 82728; 82746; 83540; 83550; 83605; 83690; 83735; 84484; 85025; 85347; 85610; 85730; 87641; 93005; 93306; 93308; 93459; 99284; A9270-GY; C1725; C1751; C1769; C1876; C1887; C8924; C8929; C9600-LM; C9601-LC; J0583; J0780; J1200; J1630; J1644; J2060; J2250; J2270; J2405; J2765; J3010; J3475; J3480; J3490; Q0164

== ENCOUNTER 2018-05-21 00:03 | Emergency (ER) | payer MEDICARE ==
[2018-05-21] MEDS ORDERED: NS 0.9% 1000 ML* 3,000 ML IV ONE (00:21)
[2018-05-21] MEDS ORDERED: PROCHLORPERAZINE INJ 5 MG/ML 2 ML VIAL IV ONE (00:23)
--- NOTE | 2018-05-21 00:23 | ED ---
GI/ HPI - HPI Summary HPI Summary: Pt is a 48 year old male presenting to the ED with a chief complaint of vomiting. He has been vomiting and in pain for the last two days but it has been very constant the last three hours. The pt has epigastric pain but no chest pain per se present. The pt has a hx of heart issues. - History of Current Complaint Chief Complaint: EDNauseaVomitDiarrh Stated Complaint: VOMITING Hx Obtained From: Patient Onset/Duration: Started Days Ago, Still Present Timing: Constant, Lasting Days Severity: Mild Current Severity: Moderate Pain Intensity: 9 Location of Pain: Diffuse Pain Radiates to: Chest Associated Signs and Symptoms: Positive: Nausea, Vomiting - Additional Pertinent History Primary Care Physician: RADHAMES - Allergy/Home Medications Allergies/Adverse Reactions: Allergies Allergy/AdvReac Type Severity Reaction Status Date / Time cat dander Allergy Eyes Verified 05/02/18 13:33 Itchy/Swollen/Red/Watery erythromycin base Allergy Nausea And Verified 05/02/18 13:33 [From Erythrocin] Vomiting Iodinated Contrast- Oral and AdvReac Vomiting Verified 05/02/18 13:33 IV Dye PMH/Surg Hx/FS Hx/Imm Hx Previously Healthy: No Endocrine/Hematology History: Reports: Hx Diabetes - TYPE 2 Denies: Hx Thyroid Disease Cardiovascular History: Reports: Hx Angina, Hx Coronary Artery Disease, Hx Hypercholesterolemia, Hx Hypertension - CONTROLLED WITH MEDS, Hx Myocardial Infarction, Other Cardiovascular Problems/Disorders - CARDIAC STENTS. CABG. HLD Denies: Hx Congestive Heart Failure, Hx Pacemaker/ICD, Hx Valvular Heart Disease Respiratory History: Denies: Hx Asthma, Hx Chronic Obstructive Pulmonary Disease (COPD) GI History: Reports: Hx Gall Bladder Disease, Hx Gastroesophageal Reflux Disease , Hx Gastrointestinal Bleed, Other GI Disorders - gastroparesis, cyclic vomiting syndrome Denies: Hx Ulcer History: Denies: Hx Dialysis, Hx Renal Disease Musculoskeletal History: Reports: Hx Arthritis - hips and back, Hx Back Problems , Hx Bursitis - SHOULDERS, Other Musculoskeletal History - Degenerative joint disease, chronic lower back pain. hx OF OSTEOMYLITIS Sensory History: Reports: Hx Contacts or Glasses Denies: Hx Hearing Aid Comment Only: Other Sensory Impairments - doesn't have glasses with him Opthamlomology History: Reports: Hx Contacts or Glasses Comment Only: Other Sensory Impairments - doesn't have glasses with him Neurological History: Reports: Hx Migraine - OCCASSIONALY PER PT REPORT 1-2x per year, Other Neuro Impairments/Disorders - young's palsy, PAIN CLINIC PATIENT Psychiatric History: Reports: Hx Anxiety, Hx Depression, Hx Panic Disorder - does ok with mri foot, Hx Bipolar Disorder - Cancer History Hx Chemotherapy: No - Surgical History Surgery Procedure, Year, and Place: 2009 triple heart bypass;. 2008 cardiac cath no stents;. CARDIAC CATH 2 stents placed March 2014 at [facility]. GALLBLADDER Apr; Hx Anesthesia Reactions: No - Immunization History Date of Tetanus Vaccine: utd Date of Influenza Vaccine: utd Infectious Disease History: No Infectious Disease History: Reports: History Other Infectious Disease - spinal meningitis Denies: Hx Clostridium Difficile, Hx Hepatitis, Hx Human Immunodeficiency Virus (HIV), Hx of Known/Suspected MRSA, Hx Shingles, Hx Tuberculosis, Hx Known/ Suspected VRE, Hx Known/Suspected VRSA, Traveled Outside the [place] in Last 30 Days - Family History Known Family History: Positive: Cardiac Disease - [place] - mother & father, Hypertension, Diabetes - Social History Alcohol Use: None Alcohol Amount: 1-2 beers per week Hx Substance Use: Yes Substance Use Type: Reports: Marijuana Substance Use Comment - Amount & Last Used: 3x daily Hx Tobacco Use: Yes Smoking Status (MU): Former Smoker Type: Smokeless Tobacco Amount Used/How Often: Chews one tin per week Length of Time of Smoking/Using Tobacco: 4 years Have You Smoked in the Last Year: No Review of Systems Negative: Fever Positive: Chest Pain Positive: Vomiting, Nausea All Other Systems Reviewed And Are Negative: Yes Physical Exam - Summary Physical Exam Summary: Appearance: Well-nourished, appears uncomfortable, retching Skin: Warm, dry, no obvious rash Eyes: sclera anicteric, no conjunctival pallor ENT: mucous membranes moist, pharynx appears normal Neck: Supple, nontender Respiratory: Clear to auscultation, no signs of respiratory distress Cardiovascular: Normal S1, S2. No murmurs. Normal distal pulses in tibial and radial bilaterally. Abdomen: Soft, nontender, normal active bowel sounds present Musculoskeletal: Normal, Strength/ROM Intact Neurological: A&Ox3, awake and alert, mentation is normal, speech is fluent and appropriate Psychiatric: affect is normal, does not appear anxious or depressed Triage Information Reviewed: Yes Vital Signs On Initial Exam: Initial Vitals Temp Pulse Resp BP Pulse Ox 97 F 103 22 142/100 100 05/21/18 00:06 05/21/18 00:06 05/21/18 00:06 05/21/18 00:06 05/21/18 00:06 Vital Signs Reviewed: Yes Diagnostics - Vital Signs Vital Signs Temp Pulse Resp BP Pulse Ox 05/21/18 00:06 97 F 103 22 142/100 100 - Laboratory Result Diagrams: 05/21/18 00:33 05/21/18 00:33 Lab Statement: Any lab studies that have been ordered have been reviewed, and results considered in the medical decision making process. Re-Evaluation - Re-Evaluation First Eval Re-Evaluation Time: 01:45 Change: Worse Comment: Pt is having cardiac issues, is currently unresponsive and does not have a pulse. CPR and emergency services are being performed by the team. GIGU Course/Dx - Course Course Of Treatment: This is a 48 y/o man with a h/o gastroparesis and CAD who presents with 2 day h/o vomiting. He had some epigastric pain associated with this, at times radiating to the chest. He was initially treated with IV compazine and initially appeared improved but shortly thereafter he rapidly decompensated, progressing from onset of dyspnea to cardiac arrest within a period of approximately 10 minutes. Aggressive resuscitative measures were initiated, cardiologists came in for consideration of emergency clinical laboratory scientist/ angioplasty, but patient could not be stabilized and ultimately . - Diagnoses Provider Diagnoses: CAD (coronary artery disease), Myocardial infarction - Additional Visit Information During the Visit The Following Alert/Code Occurred: STEMI - Critical Care Time Critical Care Time: 30-74 min Discharge - Sign-Out/Discharge Documenting (check all that apply): Patient Departure - Pt at 0310 - Discharge Plan Condition: Disposition: Referrals: Nicky DIXON,Tito Castillo [Primary Care Provider] - - Billing Disposition and Condition Condition: Disposition: - Attestation Statements Document Initiated by Scribe: Yes Documenting Scribe: Melanie Bowman Provider For Whom Scribe is Documenting (Include Credential): Beau Hernandez MD. Scribe Attestation: Melanie Flanagan, scribed for Beau Hernandez MD. on 05/25/18 at 0953. Scribe Documentation Reviewed: Yes Provider Attestation: The documentation as recorded by the Melanie shore accurately reflects the service I personally performed and the decisions made by me, Beau Hernandez MD. Consult Consult: [address] Steve De La Fuente about pts current condition, asked for his assistance with the patient. He is going to talk to the medical office specialist to see if they want to take him to the clinical laboratory scientist. 0218 Dr. Steve De La Fuente called back, he will be coming in to see him.
[2018-05-21] MEDS ORDERED: PROCHLORPERAZINE INJ 5 MG/ML 2 ML VIAL ONE (00:24)
[2018-05-21 00:43] LABS: ABS Basophils 0 10^3/ul (0-0.2); ABS Eosinophils 0 10^3/ul (0-0.6); ABS Lymphocytes 1.5 10^3/ul (1.0-4.8); ABS Monocytes 0.6 10^3/ul (0-0.8); ABS Neutrophils 11.6 10^3/ul (1.5-7.7); ABS Nucleated RBC 0 10^3/ul; Eosinophil % 0.1 % (0-6); Hematocrit 38 % (42-52); Hemoglobin 13.1 g/dl (14.0-18.0); Lymphocyte % 11.2 % (25-47); Mean Corpuscular HGB Conc 34 g/dl (31-36); Mean Corpuscular Hemoglobin 29 pg (27-31); Mean Corpuscular Volume 85 fL (80-94); Mean Platelet Volume 7.5 um3 (7.4-10.4); Nucleated Red Blood Cells % 0.1; Platelet Count 260 10^3/ul (150-450); Red Blood Count 4.52 10^6/ul (4.00-5.40); Red Cell Distribution Width 15 % (10.5-15); White Blood Count 13.7 10^3/ul (3.5-10.8)
[2018-05-21 01:01] LABS: EGFR Non-African American 93.3 (>60)
[2018-05-21] MEDS ORDERED: Nitroglycerin 2% OINT* 1 GM PAK TOPICAL ONE (01:43)
[2018-05-21] MEDS ORDERED: Sodium Bicarbonate 8.4%* 50 ML SYRINGE ONE ×4 (01:50→02:30)
[2018-05-21] MEDS ORDERED: EPINEPHrine SYR 0.1MG/ML* SYRINGE ONE ×5 (01:50→03:48)
[2018-05-21] MEDS ORDERED: Magnesium Sulfate 2 GM IV* 50 ML BAG ONE (01:50)
[2018-05-21] MEDS ORDERED: Amiodarone IV VIAL* 50 MG/ML 3 ML VIAL (150 MG) ONE (02:12)
[2018-05-21] MEDS ORDERED: Magnesium Sulfate IV* 0.5 GM/ML 2 ML VIAL (1 GM) ONE (02:12)
[2018-05-21] MEDS ORDERED: Lidocaine 2% (CARDIAC)* 20 MG/ML 5 ML SYRINGE (100 MG) ONE (02:21)
[2018-05-21] MEDS ORDERED: Atropine SYRINGE* 0.1 MG/ML 10 ML SYRINGE (1 MG) ONE ×2 (02:30→03:48)
[2018-05-21] MEDS ORDERED: Lidocaine 1% INJ* 10 MG/ML 30 ML SDV ONE (02:52)
[2018-05-21] MEDS ORDERED: Heparin 2 UNITS/ML IVPREMIX* 1,000 ML IV ONE (02:52)
[2018-05-21] MEDS ORDERED: nitroGLYCERIN DRIP* 0 MCG/0 ML BTL ONE (02:52)
[2018-05-21] MEDS ORDERED: Iohexol 350 (CONTRAST) 200 ML MDV IV ONE (02:53)
[2018-05-21] MEDS ORDERED: DOPAMINE ONE (03:48)
[2018-05-21 04:06] VITALS: BP 77/28
--- NOTE | 2018-05-21 08:42 | DS ---
CC: Dr. Tito Saunders; Dr. Oswald; Dr. Galicia; Dr. Pastrana, the medical technologist generalist; Dr. Jimenez; Dr. Cm. * SUMMARY: Please also regard this summary as short consultation of a patient, who was resuscitated in the emergency department. DATE OF : 05/21/18 at 3:10 a.m. PRIMARY CARE PROVIDER: Dr. Tito Saunders CAUSE OF : 1. Cardiac arrhythmia leading to cardiac arrest. developed likely secondary to initial pulmonary edema. 2. Initial presentation to the emergency room and was intractable nausea and vomiting. HOSPITAL COURSE: Please note that medicine service became and involved with the patient's care once the [facility] alert was called. Apparently, the patient came into the hospital for nausea and vomiting. He was treated with intravenous fluids and when he overall felt better with his vomiting, he developed shortness of breath, profuse diaphoresis, and ventricular tachyarrhythmias including ventricular tachycardia. At that point, [facility] alert was called. The patient was shocked. Resuscitation started. Over the course of the next hour and a half, the patient was shocked multiple times-approximately 20 times. He was treated with multiple doses of epinephrine, bicarbonate boluses, a total of 300 mg of IV amiodarone and subsequent amiodarone drip as well as lidocaine bolus of 100 mg total. He was given 4 mg total of IV magnesium for torsades that were diagnosed during his code. He was also shocked from that multiple times. There were several moments when the patient was going back to sinus tachycardia and transiently would have pulse, but then would go back to ventricular tachyarrhythmias again. He also was in unstable ventricular tachycardia and ventricular fibrillation multiple times as well as torsades mentioned above. The patient was intubated at the beginning of resuscitation by Dr. Hernandez from the emergency department. By the end of the resuscitation, both Dr. De La Fuente and Dr. Galicia came in to evaluate the patient. There appeared to be no myocardial activity during a brief ultrasound evaluation by the field supervisor seed production. The patient was transiently tried to be transcutaneously paced without any results and eventually the patient's family requested for the resuscitation and chest compressions to be stopped. The patient's was pronounced at 3:10 a.m. by myself. At that point, the patient's pupils were nonreactive. He was not responding to any stimuli. There was no heart rate and no respirations noted. At that point, the patient still had the endotracheal tube in place and ventilator was discontinued at that point. The patient's family was present by the bedside and requested for the patient not to undergo autopsy. That was confirmed by Dr. Pastrana, the medical technologist generalist, who [facility] my verbal communication with her on the phone. TIME SPENT: Total time spent in the emergency department and the patient's care was approximately 120 minutes. [id number]/CPS #: [id number] MTDD
--- NOTE | 2018-05-21 08:57 | RAD ---
INDICATION: Dyspnea COMPARISON: Most recent comparison chest x-rays dated March 20, 2018 TECHNIQUE: Single AP portable view of the chest was obtained. FINDINGS: Image quality is compromised due to the relative inferiority of a portable chest x-ray. Stable postsurgical changes include sternotomy wires and surgical clips overlying the left lower medial hemithorax. The heart is mildly enlarged. The heart and mediastinum otherwise exhibits normal contours. The pulmonary vasculature appears mildly engorged and indistinct. Lungs are otherwise grossly clear. The costophrenic angles are adequately defined. Visualized bones are normal for the patient's age. IMPRESSION: Chest x-ray findings are most consistent with cardiogenic pulmonary edema not significantly changed since the most recent chest x-ray dated March 20, 2018. R1
== END 2018-05-21 03:10 | disposition expired ==
LOC: ED 00:03
DX: I46.9 Cardiac arrest, cause unspecified (principal); R11.2 Nausea with vomiting, unspecified; R07.9 Chest pain, unspecified; Z87.891 Personal history of nicotine dependence
CPT/HCPCS: 36415; 71045; 80053; 83690; 84484; 85025; 93005; 99285; J0171; J0282; J0461; J0780; J1265; J1644; J3475